=== PATIENT | male | born 1950 | race Caucasian/White ===

== ENCOUNTER 2017-05-03 09:30 | Outpatient (RCR) | payer MEDICARE, OTHER, SELFPAY | END 2017-05-10 23:59 | LOC: DC 09:30 | PROVIDERS: Family Provider Family Medicine; PCP Family Medicine; Visit Provider Family Medicine | DX: E11.21 Type 2 diabetes mellitus with diabetic nephropathy (principal); I10 Essential (primary) hypertension; E78.5 Hyperlipidemia, unspecified; Z71.3 Dietary counseling and surveillance | CPT/HCPCS: 97803; G0109 ==

== ENCOUNTER 2017-06-19 10:00 | Outpatient (RCR) | payer MEDICARE, OTHER, SELFPAY | END 2017-07-08 23:59 | LOC: DC 10:00 | PROVIDERS: Family Provider Family Medicine; PCP Family Medicine; Visit Provider Family Medicine | DX: E11.21 Type 2 diabetes mellitus with diabetic nephropathy (principal); I10 Essential (primary) hypertension; E78.5 Hyperlipidemia, unspecified; Z71.3 Dietary counseling and surveillance | CPT/HCPCS: 97803 ==

== ENCOUNTER → 2017-07-19 10:52 | Outpatient (CLI) | payer MEDICARE, OTHER, SELFPAY ==
[2017-07-19 12:11] LABS: Absolute Lymphocyte Count 2.45 X10^3/ul (0.83-4.51); Absolute Neutrophil Count 3.1 X10^3/uL (2.0-7.7); Basophil# 0.04 X10^3/uL; Basophil% 0.6 % (0-1); Eosinophils% 3.1 % (0-5); Hematocrit 43.8 % (40-54); Hemoglobin 14.7 g/dl (13.0-16.5); Lymphocyte # 2.45 X10^3/ul (4.0); Lymphocyte % 38.4 % (19-41); Mean Corp Hgb Conc 33.6 g/gl (32-36); Mean Corpuscular Hgb 31.3 pg (27.0-32.0); Mean Corpuscular Volume 93.2 fL (80-94); Mean Platelet Vol. 10.8 fl (6.2-12.0); Monocyte# 0.54 X10^3/uL; Monocyte% 8.5 % (0-10); Neutrophil # 3.14 X10^3/uL (2.7-7.7); Neutrophil % 49.2 % (47-70); Platelet Count 185 K/mm3 (150-450); RBC Distribution Width CV 12.7 % (11.6-14.6); White Blood Count 6.4 K/mm3 (4.4-11.0)
[2017-07-19 12:30] LABS: POSITIVE COUNT NO; POSITIVE DIFFERENTIAL NO; POSITIVE MORPHOLOGY NO
[2017-07-19 12:37] LABS: Microalbumin,Random Urine 62.9 mg/L (NO RANGE EST.); Microalbumin:Creatinine Ratio 47.3 mg/g CRE (<30 mg/g CRE)
[2017-07-19 12:42] LABS: Hemoglobin A1c 6.5 % (4.2-6.3)
[2017-07-19 12:49] LABS: ALB/GLOB Ratio 1.2 RATIO (0.9-2.4); AST(SGOT) 25 U/L (15-37); Alanine Aminotransfer ALT/SGPT 41 U/L (16-61); Alkaline Phosphatase 64 U/L (45-117); Anion Gap 6 (5-15); BUN 17 mg/dL (7-18); BUN/Creat Ratio 18.2 RATIO (10-20); Calcium,Total 8.7 mg/dL (8.5-10.1); Chloride 103 mmol/L (98-107); Cholesterol 128 mg/dL (200); Creatinine, Serum 0.93 mg/dL (0.70-1.30); EST Glomerular Filtration Rate 86 mL/min (>60); Est Glom Filt Rate - Afr Amer 104 mL/min (>60); Globulin 3.2 g/dL (2.2-4.2); Glucose 143 mg/dL (74-106); High Density Lipoprotein 25 mg/dL; Potassium 4.2 mmol/L (3.5-5.1); Protein, Total 7.2 g/dL (6.4-8.2); Sodium Level 140 mmol/L (136-145); Triglycerides 227 mg/dL; Very Low Density Lipoprotein 45 mg/dL (5-40)
== END ==
PROVIDERS: Family Provider Family Medicine; PCP Family Medicine; Visit Provider Family Medicine
DX: E11.21 Type 2 diabetes mellitus with diabetic nephropathy (principal); E78.5 Hyperlipidemia, unspecified; I10 Essential (primary) hypertension
CPT/HCPCS: 36415; 80053; 80061; 82043; 82570; 83036; 85025

== ENCOUNTER 2017-08-30 13:53 | Outpatient (RCR) | payer MEDICARE, OTHER, SELFPAY | END 2017-09-07 23:59 | LOC: DC 13:53 | PROVIDERS: Family Provider Family Medicine; PCP Family Medicine; Visit Provider Family Medicine | DX: E11.21 Type 2 diabetes mellitus with diabetic nephropathy (principal); I10 Essential (primary) hypertension; E78.5 Hyperlipidemia, unspecified; Z71.3 Dietary counseling and surveillance | CPT/HCPCS: G0109 ==

== ENCOUNTER 2017-09-20 14:01 | Outpatient (RCR) | payer MEDICARE, OTHER, SELFPAY | END 2017-10-07 23:59 | LOC: DC 14:01 | PROVIDERS: Family Provider Family Medicine; PCP Family Medicine; Visit Provider Family Medicine | DX: E11.21 Type 2 diabetes mellitus with diabetic nephropathy (principal); I10 Essential (primary) hypertension; E78.5 Hyperlipidemia, unspecified; Z71.3 Dietary counseling and surveillance | CPT/HCPCS: G0109 ==

== ENCOUNTER → 2018-01-29 10:45 | Outpatient (CLI) | payer MEDICARE, OTHER, SELFPAY ==
[2018-01-29 12:44] LABS: PSA,Total - Annual Screen 4.13 ng/mL (0.00-4.00)
== END ==
PROVIDERS: PCP Family Medicine; Visit Provider Urology
DX: Z12.5 Encounter for screening for malignant neoplasm of prostate (principal)
CPT/HCPCS: 36415; 84153; G0103

== ENCOUNTER → 2018-07-19 13:07 | Outpatient (CLI) | payer MEDICARE, SELFPAY ==
[2018-07-19 16:05] LABS: Absolute Lymphocyte Count 2.25 X10^3/ul (0.83-4.51); Absolute Neutrophil Count 3.3 X10^3/uL (2.0-7.7); Basophil# 0.03 X10^3/uL; Basophil% 0.5 % (0-1); Eosinophil# 0.24 X10^3/uL; Eosinophils% 3.7 % (0-5); Hematocrit 41.8 % (40-54); Hemoglobin 14.2 g/dl (13.0-16.5); Lymphocyte # 2.25 X10^3/ul (4.0); Lymphocyte % 34.9 % (19-41); Mean Corpuscular Hgb 30.8 pg (27.0-32.0); Mean Corpuscular Volume 90.7 fL (80-94); Monocyte# 0.62 X10^3/uL; Monocyte% 9.6 % (0-10); Neutrophil # 3.29 X10^3/uL (2.7-7.7); Platelet Count 183 K/mm3 (150-450); RBC Distribution Width CV 12.3 % (11.6-14.6); RBC Distribution Width SD 40.1 fl (35.1-43.9); Red Blood Count 4.61 M/mm3 (4.6-6.2); White Blood Count 6.5 K/mm3 (4.4-11.0)
[2018-07-19 16:10] LABS: POSITIVE COUNT NO; POSITIVE DIFFERENTIAL NO; POSITIVE MORPHOLOGY NO
[2018-07-19 16:24] LABS: ALB/GLOB Ratio 1.3 RATIO (0.9-2.4); AST(SGOT) 34 U/L (15-37); Alanine Aminotransfer ALT/SGPT 59 U/L (16-61); Alkaline Phosphatase 66 U/L (45-117); Anion Gap 7 (5-15); BUN 15 mg/dL (7-18); BUN/Creat Ratio 15.6 RATIO (10-20); Calcium,Total 8.9 mg/dL (8.5-10.1); Chloride 101 mmol/L (98-107); Cholesterol 119 mg/dL (200); Creatinine, Serum 0.96 mg/dL (0.70-1.30); EST Glomerular Filtration Rate 83 mL/min (>60); Est Glom Filt Rate - Afr Amer 100 mL/min (>60); Globulin 3.1 g/dL (2.2-4.2); Glucose 215 mg/dL (74-106); High Density Lipoprotein 25 mg/dL; Potassium 4.1 mmol/L (3.5-5.1); Protein, Total 7.1 g/dL (6.4-8.2); Sodium Level 137 mmol/L (136-145); Triglycerides 267 mg/dL; Very Low Density Lipoprotein 53 mg/dL (5-40)
[2018-07-19 16:35] LABS: Microalbumin,Random Urine 49.5 mg/L (NO RANGE EST.); Microalbumin:Creatinine Ratio 43.4 mg/g CRE (<30 mg/g CRE)
[2018-07-19 16:53] LABS: Hemoglobin A1c 7.8 % (4.2-6.3)
== END ==
PROVIDERS: Family Provider Family Medicine; PCP Family Medicine; Visit Provider Family Medicine
DX: E11.21 Type 2 diabetes mellitus with diabetic nephropathy (principal); M48.02 Spinal stenosis, cervical region; I10 Essential (primary) hypertension; M47.812 Spondylosis without myelopathy or radiculopathy, cervical region; E78.5 Hyperlipidemia, unspecified; N20.0 Calculus of kidney; N40.0 Benign prostatic hyperplasia without lower urinary tract symptoms; E66.9 Obesity, unspecified
CPT/HCPCS: 36415; 80053; 80061; 82043; 82570; 83036; 85025

== ENCOUNTER → 2018-09-13 16:37 | Outpatient (CLI) | payer MEDICARE, SELFPAY ==
[2018-09-13 16:52] LABS: Bacteria 0 SEEN /hpf (None Seen); Mucous, Urine 0 SEEN /hpf (<or=2+)
[2018-09-13 16:57] LABS: Color, Urine Yellow (Yellow); Glucose, Dipstick 1000 mg/dl (Normal); Ketone-Dipstick 15 mg/dl (Negative); Leukocyte Esterase-Dipstick Negative /ul (Negative); Nitrite-Dipstick Negative (Negative); Occult Blood-Urine 250 /ul (Negative); Protein-Dipstick 30 mg/dl (Negative); Specific Gravity, Urine 1.025 (1.002-1.030); Urine Bilirubin Dipstick Negative (Negative); Urine Clarity Clear (Clear); Urine Urobilinogen Normal (Normal)
[2018-09-13 17:11] LABS: Calcium Oxalate Crystals Ur 1+ /hpf (<or=2+); Red Blood Cells-Urine 5-10 SEEN /hpf (0-5); Squamous Epithelial Cells - UA 0-5 SEEN /hpf (0-5); White Blood Cells 0-5 SEEN /hpf (0-5)
== END ==
PROVIDERS: Family Provider Family Medicine; PCP Family Medicine; Referring Provider Nurse Practitioner Adult Health; Visit Provider Nurse Practitioner Adult Health
DX: R31.29 Other microscopic hematuria (principal)
CPT/HCPCS: 81001

== ENCOUNTER → 2018-09-27 | Outpatient (CLI) | payer MEDICARE, OTHER, SELFPAY ==
--- NOTE | 2018-09-27 13:53 | CT_ITS ---
HISTORY: Hematuria COMPARISON: 03/29/2017 TECHNIQUE: Helical CT axial images from the lung bases to the pubic symphysis without and with 100 ml of Isovue 300 intravenous contrast. Multiplanar reconstruction. No oral contrast was administered. A radiation dose optimization technique was used for this scan. # of images incl. paperwork: [phone] FINDINGS: LUNG BASES: No basilar consolidation or effusions. LIVER: Normal in size and attenuation. No focal masses. HEPATOBILIARY: Unremarkable gallbladder. No intra- or extrahepatic ductal dilatation. SPLEEN: Normal size. PANCREAS: Normal size and contour. No focal mass. ADRENAL GLANDS: Normal size. No adrenal masses. KIDNEYS: No obstructing calculi or hydronephrosis bilaterally. Right lower pole 3 x 9 mm nonobstructing calculus. Left lower pole infundibulum 5 x 4 mm nonobstructing calculus. No focal solid renal mass. No significant cysts are present. Normal ureters bilaterally without calculi or hydroureter. BOWEL AND MESENTERY: No small or large bowel dilatation. No focal bowel wall thickening. Descending and sigmoid colon diverticulosis. Normal appendix. No abnormal mesenteric lymphadenopathy. No free fluid or pneumoperitoneum. RETROPERITONEUM:Normal caliber abdominal aorta without aneurysm. Mild ASVD. No abnormal retroperitoneal lymphadenopathy. PELVIS:Moderate prostatomegaly with radiation seeds in place. Bilateral seminal vesicles are also enlarged. Mild mass-effect upon the base of the urinary bladder; otherwise unremarkable urinary bladder. ABDOMINAL WALL: The abdominal wall is intact. BONES: No suspicious osseous lytic or blastic lesions seen. Spine degenerative changes. CT/CT Abd/Pelvis W/WO Contrast IMPRESSION: 1. No acute intra-abdominal or pelvic disease. 2. Moderate prostatomegaly with radiation seeds in place. 3. No evidence for metastatic disease to abdomen or pelvis. 4. Nonobstructing bilateral nephrolithiasis as described. 5. Colonic diverticulosis without diverticulitis. Individualized dose optimization techniques were used for this CT. at 2023 Reported and signed by: Grant Acevedo MD Electronically Signed: Grant Acevedo MD at 20:23 EDT Tel , Service support ,
[2018-09-27 14:01] LABS: CREATININE FINGERSTICK 0.9 mg/dL (0.70-1.30)
== END | disposition home or self-care (01) ==
LOC: CT 13:51
PROVIDERS: Family Provider Family Medicine; PCP Family Medicine; Referring Provider Nurse Practitioner Adult Health; Visit Provider Nurse Practitioner Adult Health
DX: R31.9 Hematuria, unspecified (principal)
CPT/HCPCS: 74178; Q9967

== ENCOUNTER → 2018-10-09 13:04 | Outpatient (CLI) | payer MEDICARE, OTHER, SELFPAY ==
--- NOTE | 2018-10-09 13:09 | RAD_ITS ---
STUDY: X-RAY - ABDOMEN/PELVIS REASON FOR EXAM: Male, 68 years old. Bilateral kidney stones. TECHNIQUE: Two AP supine views of the abdomen and pelvis. COMPARISON: CT abdomen and pelvis September 27, 2018. FINDINGS: Normal visualized lung bases. There is an unremarkable bowel gas pattern. There is no demonstrated free abdominal air. The bilateral nephrolithiasis seen on CT is not evident here, although the renal shadows are partially obscured by gas and stool in the bowel. The visualized liver and spleen are grossly normal in size and morphology. There are calcified phleboliths in the pelvis, as well as a few linear metallic densities consistent with radiation seed implants in the prostate gland. There are stable degenerative changes of the visualized spine, upper sacroiliac joints, and hips. Stable small benign-appearing sclerotic density in the right femoral head. RAD/Abdomen Single View IMPRESSION: 1. Nephrolithiasis identified on CT is not identified here. 2. Nonspecific bowel gas pattern. 3. Radiation seed implants noted in the prostate gland. 4. Stable degenerative changes of the spine and pelvis, as noted. Electronically Signed: Alexey Leavitt MD at 14:11 EDT , Service support ,
== END ==
PROVIDERS: Family Provider Family Medicine; PCP Family Medicine; Referring Provider Urology; Visit Provider Urology
DX: N20.0 Calculus of kidney (principal)
CPT/HCPCS: 74018

== ENCOUNTER → 2018-10-18 11:17 | Outpatient (CLI) | payer MEDICARE, OTHER, SELFPAY ==
[2018-10-18 13:18] LABS: Hemoglobin A1c 8.1 % (4.2-6.3)
== END ==
PROVIDERS: Family Provider Family Medicine; PCP Family Medicine; Visit Provider Family Medicine
DX: E11.21 Type 2 diabetes mellitus with diabetic nephropathy (principal)
CPT/HCPCS: 36415; 83036

== ENCOUNTER → 2019-01-21 14:00 | Outpatient (CLI) | payer MEDICARE, OTHER, SELFPAY ==
[2018-11-03 10:07] VITALS: BMI 34.2
[2019-01-21 15:56] LABS: Cholesterol 118 mg/dL (200); High Density Lipoprotein 24 mg/dL; Triglycerides 236 mg/dL; Very Low Density Lipoprotein 47 mg/dL (5-40)
[2019-01-21 16:25] LABS: Hemoglobin A1c 7.1 % (4.2-6.3)
== END ==
PROVIDERS: Family Provider Family Medicine; PCP Family Medicine; Visit Provider Family Medicine
DX: E11.21 Type 2 diabetes mellitus with diabetic nephropathy (principal); E78.5 Hyperlipidemia, unspecified
CPT/HCPCS: 36415; 80061; 83036

== ENCOUNTER → 2019-03-11 13:14 | Outpatient (CLI) | payer MEDICARE, OTHER, SELFPAY ==
[2018-11-03 10:07] VITALS: BMI 34.2
[2019-03-11 15:22] LABS: PSA,Total - Annual Screen 3.89 ng/mL (0.00-4.00)
[2019-03-20 12:07] LABS: Ca Oxalate, Dihydrate 15 % (.); Ca Oxalate, Monohydrate 80 % (.)
== END ==
PROVIDERS: Family Provider Family Medicine; PCP Family Medicine; Referring Provider Urology; Visit Provider Urology
DX: Z12.5 Encounter for screening for malignant neoplasm of prostate (principal); N20.0 Calculus of kidney; R31.9 Hematuria, unspecified
CPT/HCPCS: 36415; 82360; 84153; 87086; 87088; G0103

== ENCOUNTER → 2019-04-22 14:03 | Outpatient (CLI) | payer MEDICARE, OTHER, SELFPAY ==
[2018-11-03 10:07] VITALS: BMI 34.2
--- NOTE | 2019-04-22 14:10 | RAD_ITS ---
STUDY: X-RAY - ABDOMEN/PELVIS REASON FOR EXAM: Male, 68 years old. follow up kidney stones, bilateral TECHNIQUE: Single AP view of the abdomen / pelvis. COMPARISON: None. FINDINGS: Normal visualized lung bases. There is abundant fecal debris within the colon suggestive of constipation. There is no demonstrated free abdominal air. The visualized liver, spleen and kidneys are grossly normal in size and morphology. Radiopaque structures in the region of prostate gland for the purpose of therapy. Image of the soft tissue structures. There are diffuse degenerative changes of the visualized lumbar spine, SI joints and bilateral hips. RAD/Abdomen Single View IMPRESSION: Possible constipation. Electronically Signed: Joana Medina MD at 3:55 EST , Service support ,
== END ==
PROVIDERS: Family Provider Family Medicine; PCP Family Medicine; Referring Provider Urology; Visit Provider Urology
DX: N20.0 Calculus of kidney (principal); R31.21 Asymptomatic microscopic hematuria
CPT/HCPCS: 74018

== ENCOUNTER 2019-05-24 13:09 | Day surgery (SDC) | payer MEDICARE, OTHER, SELFPAY ==
[2018-11-03 10:07] VITALS: BMI 34.2
[2019-05-20 09:21] VITALS: BP 155/80; PULSE 71; RESP 16; TEMP 36.6; O2SAT 95; BMI 35.9
--- NOTE | 2019-05-20 09:39 | SDCEKG_ITS ---
Test Reason : Blood Pressure : / mmHG Vent. Rate : 068 BPM Atrial Rate : 068 BPM P-R Int : 180 ms QRS Dur : 094 ms QT Int : 392 ms P-R-T Axes : 033 -45 108 degrees QTc Int : 416 ms Normal sinus rhythm Left axis deviation T wave abnormality, consider lateral ischemia Abnormal ECG Confirmed by DIANA PAYTON ([id number]), international editorial producer JOZEF OLIVEIRA ([id number]) on 05/23/2019 3:02:48 PM Referred By: Duke Logan Confirmed By:DIANA PAYTON
[2019-05-20 11:41] LABS: Anion Gap 6 (5-15); BUN 15 mg/dL (7-18); Calcium,Total 9.7 mg/dL (8.5-10.1); Chloride 101 mmol/L (98-107); EST Glomerular Filtration Rate 79 mL/min (>60); Est Glom Filt Rate - Afr Amer 96 mL/min (>60); Glucose 237 mg/dL (74-106); Potassium 4.3 mmol/L (3.5-5.1); Sodium Level 138 mmol/L (136-145)
[2019-05-20 11:48] LABS: Hemoglobin A1c 7.2 % (4.2-6.3)
[2019-05-22 11:30] VITALS: BMI 35.9
[2019-05-24] VITALS (11 sets, daily range): BP systolic 91–154; BP diastolic 53–83; PULSE 57–75; RESP 16–18; TEMP 36.2–36.9; O2SAT 94–99; BMI 35.6
[2019-05-24] MEDS: Lactated Ringers 1,000 ML 100 ML IV ×2 (14:05→16:17)
[2019-05-24 14:15] LABS: Bedside Glucose 175 mg/dL (70-110)
[2019-05-24] MEDS: Cefazolin 2 GM in 0.9% Normal Saline 100 ML IV (14:50)
--- NOTE | 2019-05-24 15:30 | PROS_PTH ---
PATIENT: TERESA RAINEY LOC: [facility] [place] U#:[id number] AGE/SX: 68/M ROOM: RE05/24/[address]: Dr. Duke Logan MD : 1950 BED: DIS: 05/25/2019 SPEC #: [id number] RECD: 05/27/19 10:55 STATUS: KATE RETorin #: [id number] BRAYDON: 05/24/19 15:[address]: Duke Lgoan DEPT: SURGICAL PATHOLOGY RECD BY: Iain Mena ENTERED: 05/27/19 11:09 SP TYPE: TURP OTHR DR: Dr. Shant Rojas, DO Tissues: Prostate, NOS Procedures: Surgery Specimen Level IV HEADER OPERATION: Cysto, TUR, prostate, Olympus PRE-OP DIAGNOSIS: Bladder stones, BPH with obstruction TISSUE SUBMITTED: Prostate chips MICROSCOPIC DIAGNOSIS Prostate chips, TUR: Benign prostatic hyperplasia, glandular and stromal type. Focal chronic inflammation. SJ:amelia 05/28/19 MICROSCOPIC DESCRIPTION Slides are reviewed. GROSS DESCRIPTION Received is one container labeled with the patient's name and designated prostate tissue. The specimen consists of multiple irregular fragments of pink-humphreys, rubbery, soft tissue that in aggregate weigh 6.8 gm and measure in aggregate 6 x 5 x 0.4 cm. The entire specimen is submitted in five cassettes. / AM:amelia 05/27/19 TC:5 CPT: 28185
--- NOTE | 2019-05-24 15:58 | PCM.DC.URO ---
Discharge Diet: Light diet - advance as tolerated Discharge Activity: Return to Normal Activity Call your doctor if your incision/area has: Continuous Slow Oozing, Sudden Increased Bleeding, Increased Pain/ Swelling, Increased Redness, Foul Smelling Discharge, Swelling at the incision site Call your doctor if you observe: Fever of 101 or Higher Suture Line Care: Avoid Pulling/Pushing, Avoid Pinching/Bending Instructions: Transurethral Resection of the Prostate (TURP): Home Recovery Allergies/Adverse Reactions: Allergies amoxicillin Allergy (Verified 05/24/19 13:47) Hives Penicillins Allergy (Verified 05/24/19 13:47) Hives Medications to take at Discharge Doxazosin Mesylate [Cardura] 4 mg PO DAILY 07/29/16 Simvastatin [Zocor] 10 mg PO QHS 07/29/16 cyclobenzaprine 10 mg tablet 10 mg PO TID PRN 11/01/18 metformin 500 mg tablet 1,000 mg PO BIDCM tab 11/01/18 omega-3 fatty acids 1,000 mg capsule 1,000 mg PO DAILY 11/01/18 propranolol 120 mg capsule,24 hr,extended release 120 mg PO DAILY 11/01/18 Fluconazole [Diflucan] 150 mg PO MOWEFR 05/20/19 Losartan Potassium [Cozaar] 25 mg PO DAILY 05/20/19 Multivitamin [Multivitamins] 1 ea PO DAILY 05/20/19 Naphazoline HCl/Pheniramine [Eye Allergy Relief Drops] 2 drp OP PRN PRN 05/20/19 diphenhydramine HCl 25 mg capsule 25 mg PO BID PRN cap 05/21/19 docusate sodium 100 mg capsule 100 mg PO QHS PRN 05/21/19 hydrocodone 5 mg-acetaminophen 325 mg tablet 1 tab PO Q6H PRN tab 05/21/19 hydrocortisone butyrate 0.1 % lotion 1 applic TOPICAL BID 05/21/19 nystatin 100,000 unit/gram topical cream 1 applic TOPICAL BID 05/21/19 sildenafil (pulm.hypertension) 20 mg tablet 20 mg PO DAILY PRN tab 05/21/19 aspirin 500 mg tablet 1,000 mg PO Q6H PRN tab 05/22/19 Ciprofloxacin [Cipro] 500 mg PO BID #14 tab 05/24/19 Ibuprofen 600 mg PO Q6H PRN PRN 5 Days #20 tab 05/24/19 The following prescriptions were given: Ciprofloxacin [Cipro] 500 mg PO BID #14 tab Transmission Status: Sent to [id number] Ibuprofen 600 mg PO Q6H PRN PRN 5 Days #20 tab PRN Reason: Pain Score 1-1010 Transmission Status: Sent to [id number] Primary Care Physician: Shant Rojas DO [Primary Care Provider] - Test Results: Test results from this visit will be discussed in further detail at your follow-up appointment, if applicable. Please Follow Up With: Duke Logan MD When: in 2 weeks, please call to make an appointment. Proposed Discharge Date: 05/25/19
--- NOTE | 2019-05-24 15:59 | OP.PCM_ITS ---
Report of Operation Date of Procedure: 05/24/19 Pre-Operative Diagnosis: Bladder stone and BPH with obstruction Post-Operative Diagnosis: Same Surgery/Procedure Performed:: Cystoscopy and laser litholapaxy of a large 3 cm bladder stone, transurethral resection of obstructing prostate Description of Surgical Findings:: 68-year-old male has a history of BPH and obstruction was found to have a stone in his bladder and significant bilateral occlusive disease in the median lobe because of this I recommended he undergo surgery for lasering removal of a large bladder stone and a transurethral resection of the prostate. We talked about the risk of surgery including bleeding, infection, and incontinence or bladder control problems. Patient was taken back to the operating room after smooth induction of general anesthesia he was placed in dorsolithotomy position. The penis and testicles were prepped and draped in usual sterile fashion, went into the bladder with a 26 American continuous flow resectoscope took out the resectoscope and the laser bridge he had a large 3 cm stone in the back of the bladder I then used the thousand micron laser fiber and laser the stone little tiny pieces and flushed all the pieces out of the bladder after the stone was done lasering removing the stone I then switched over to the resectoscope I switched over the loop he had a large median lobe this was resected down to the floor the bladder and then res ected back to the verumontanum I then switched over to the button I vaporized the lateral lobes of the prostate all the way back to the verumontanum had a nice flow test had a wide open flow. The sphincter was intact obtained good hemostasis three-way catheter was put into the bladder and was started on three- way irrigation he went back to the PACU in stable condition. At the end of the case the sphincter was intact both the left and right ureteral orifice were uninjured and he had a wide open channel from the verumontanum into the bladder. Type of Anesthesia:: General Drains: 3 way iverson - Admit VTE Documentation VTE Present on Admission: No
--- NOTE | 2019-05-24 16:10 | EKG12_ITS ---
Test Reason : POST OP Blood Pressure : / mmHG Vent. Rate : 071 BPM Atrial Rate : 071 BPM P-R Int : 176 ms QRS Dur : 094 ms QT Int : 404 ms P-R-T Axes : 053 -36 120 degrees QTc Int : 439 ms Normal sinus rhythm Left axis deviation ST & T wave abnormality, consider lateral ischemia Abnormal ECG When compared with ECG of 20-MAY-2019 09:49, Inverted T waves have replaced nonspecific T wave abnormality in Anterior leads Confirmed by DIANA PAYTON ([id number]), pictures editor IFTIKHAR HOU ([id number]) on 05/30/2019 9:49:41 AM Referred By: Duke Logan Confirmed By:DIANA PAYTON
[2019-05-24] MEDS: 0.9% Normal Saline 1,000 ML 75 ML IV ×2 (16:40→18:18)
[2019-05-24 16:55] LABS: Bedside Glucose 158 mg/dL (70-110)
[2019-05-24] MEDS: metFORMIN HCl 1,000 MG Tablet 1000 MG PO (18:15)
[2019-05-24] MEDS: Ciprofloxacin 400 MG/200 ML BAG 200 MG IV (21:39)
[2019-05-24] MEDS: Docusate Sodium 100 MG Capsule PO (21:41)
[2019-05-24] MEDS: Atorvastatin Calcium 10 MG Tablet 5 MG PO (21:42)
[2019-05-24] MEDS: Ibuprofen 600 MG Tablet PO (21:48)
[2019-05-25 03:22] VITALS: BP 120/58; PULSE 64; RESP 18; TEMP 36.7; O2SAT 97
[2019-05-25 07:22] LABS: Hematocrit 36.8 % (40-54); Hemoglobin 12.6 g/dL (13.0-16.5); Mean Corp Hgb Conc 34.2 g/dL (32-36); Mean Corpuscular Hgb 31.5 pg (27.0-32.0); Platelet Count 167 K/mm3 (150-450); RBC Distribution Width CV 11.9 % (11.6-14.6); RBC Distribution Width SD 40.1 fl (35.1-43.9)
[2019-05-25 08:16] LABS: Anion Gap 9 (5-15); BUN 19 mg/dL (7-18); BUN/Creat Ratio 18.4 RATIO (10-20); Calcium,Total 8.8 mg/dL (8.5-10.1); Chloride 103 mmol/L (98-107); Creatinine, Serum 1.03 mg/dL (0.70-1.30); EST Glomerular Filtration Rate 76 mL/min (>60); Est Glom Filt Rate - Afr Amer 92 mL/min (>60); Estimated Creatinine Clearance 61.94 ml/min; Glucose 186 mg/dL (74-106); Potassium 4.4 mmol/L (3.5-5.1); Sodium Level 138 mmol/L (136-145)
[2019-05-25 08:39] VITALS: BP 132/59; PULSE 65; RESP 16; TEMP 36.4; O2SAT 96
[2019-05-25] MEDS: Multivitamins,Therapeutic Tablet 1 TABLET PO (08:47)
[2019-05-25] MEDS: metFORMIN HCl 1,000 MG Tablet 1000 MG PO (08:47)
[2019-05-25] MEDS: Docusate Sodium 100 MG Capsule PO (08:47)
[2019-05-25] MEDS: Propranolol LA 60 MG Capsule 120 MG PO (08:48)
[2019-05-25] MEDS: Pantoprazole Sodium 40 MG Tablet PO (08:48)
[2019-05-25] MEDS: Losartan Potassium 25 MG Tablet PO (08:48)
[2019-05-25] MEDS: Omega-3 Acid Ethyl Esters 1 GM Capsule PO (08:49)
[2019-05-25] MEDS: Ciprofloxacin 400 MG/200 ML BAG 200 MG IV (09:08)
[2019-05-25 15:10] VITALS: BP 137/67; PULSE 92; RESP 16; TEMP 36.8; O2SAT 97
--- NOTE | 2019-05-29 17:58 | HP.PCM_ITS ---
History of Present Illness Date of Admission: 05/24/19 Chief Complaint: turp The patient is a 68 year old M present for Surgery at [facility] Past Medical History Past Medical History (Chronic Problems): Chronic Problems (Last Reviewed 05/22/19 @ 14:27 by Too Garcia MD) Essential hypertension (Chronic) Hyperlipidemia (Chronic) Medical History: Medical History (Last Reviewed 05/22/19 @ 14:27 by Too Garcia MD) Essential hypertension (Chronic) I10 Hyperlipidemia (Chronic) E78.5 BPH (benign prostatic hyperplasia) N40.0 Benign essential tremor G25.0 Constipation K59.00 History of back problems Kidney stones N20.0 Type 2 diabetes mellitus without complication E11.9 IBS (irritable bowel syndrome) K58.9 Allergies amoxicillin Allergy (Verified 05/24/19 13:47) Hives Penicillins Allergy (Verified 05/24/19 13:47) Hives Home Medications: Ambulatory Orders Medication Instructions Recorded Doxazosin Mesylate [Cardura] 4 mg PO DAILY 07/29/16 Simvastatin [Zocor] 10 mg PO QHS 07/29/16 cyclobenzaprine 10 mg tablet 10 mg PO TID PRN 11/01/18 metformin 500 mg tablet 1,000 mg PO BIDCM tab 11/01/18 omega-3 fatty acids 1,000 mg 1,000 mg PO DAILY 11/01/18 capsule propranolol 120 mg capsule,24 120 mg PO DAILY 11/01/18 hr,extended release Fluconazole [Diflucan] 150 mg PO MOWEFR 05/20/19 Losartan Potassium [Cozaar] 25 mg PO DAILY 05/20/19 Multivitamin [Multivitamins] 1 ea PO DAILY 05/20/19 Naphazoline HCl/Pheniramine [Eye 2 drp OP PRN PRN 05/20/19 Allergy Relief Drops] diphenhydramine HCl 25 mg capsule 25 mg PO BID PRN cap 05/21/19 docusate sodium 100 mg capsule 100 mg PO QHS PRN 05/21/19 hydrocodone 5 mg-acetaminophen 325 1 tab PO Q6H PRN tab 05/21/19 mg tablet hydrocortisone butyrate 0.1 % 1 applic TOPICAL BID 05/21/19 lotion nystatin 100,000 unit/gram topical 1 applic TOPICAL BID 05/21/19 cream sildenafil (pulm.hypertension) 20 20 mg PO DAILY PRN tab 05/21/19 mg tablet aspirin 500 mg tablet 1,000 mg PO Q6H PRN tab 05/22/19 Ciprofloxacin [Cipro] 500 mg PO BID #14 tab 05/24/19 Surgical History: Surgical History (Last Reviewed 05/22/19 @ 14:27 by Too Garcia MD) History of fusion of cervical spine Z98.1 History of incision and drainage Z98.890 posterior neck cyst- 11/03/18 History of lithotripsy Z98.890 History of tonsillectomy Z90.89 Smoking Status: Never smoker Tobacco Use: Chew VTE Information - Inpt Only VTE Present on Admission: No VTE Mechan Device Prophylaxis: SCD's - Physical Exam Vitals/I&O's: Vital Signs Temp Pulse Resp BP Pulse Ox 98.3 F 92 16 137/67 H 97 05/25/19 15:10 05/25/19 15:10 05/25/19 15:10 05/25/19 15:10 05/25/19 15:10 Oxygen Delivery Method Room Air Weight: 101.7 kg Body Mass Index (BMI) 35.6 Finger Stick Blood Glucose 158 General: Alert, Oriented x3, Cooperative HEENT: Atraumatic, PERRLA, EOMI, Normocephalic Neck: Supple, No JVD, Negative Carotid Bruits Lungs: Clear to auscultation, Normal air movement Cardiovascular: Regular rate, No murmurs Abdomen: Bowel Sounds Present, Soft, Non Tender Extremities: No edema, Capillary Refill Less than 3 Seconds Skin: No rashes, No breakdown Musculoskeletal: No Tenderness to Palpation of Joints or Extremities Neurological: Cranial nerves II-XII grossly intact Psych/Mental Status: Normal Affect, Appropriate Assessment/Plan All Active Problems (Last Reviewed 05/22/19 @ 14:27 by Too Garcia MD) Preop cardiovascular exam (Acute) proceed with Surgery.
== END 2019-05-25 16:00 | disposition home or self-care (01) ==
LOC: SDC 13:09 → AC 13:10 → MS3 15:56
PROVIDERS: Anesthesiology; PCP Family Medicine; Referring Provider Urology; Visit Provider Urology
PROC: (CPT 52318; principal; 2019-05-24 15:20)
PROC: (CPT 52318; 2019-05-24 15:20)
DX: N40.1 Benign prostatic hyperplasia with lower urinary tract symptoms (principal); N13.8 Other obstructive and reflux uropathy; N21.0 Calculus in bladder; Z79.899 Other long term (current) drug therapy; Z79.82 Long term (current) use of aspirin; R94.31 Abnormal electrocardiogram [ECG] [EKG]; Z79.84 Long term (current) use of oral hypoglycemic drugs; I10 Essential (primary) hypertension; E78.00 Pure hypercholesterolemia, unspecified; E11.9 Type 2 diabetes mellitus without complications; F17.220 Nicotine dependence, chewing tobacco, uncomplicated
CPT/HCPCS: 00914; 52318; 52601; 36415; 80048; 82962; 83036; 84484; 85027; 88305; 93005; 99406; J7030; J7120; J0744; J2405

== ENCOUNTER 2019-06-08 17:02 | Emergency (ER) | payer MEDICARE, OTHER, SELFPAY ==
[2019-05-24 17:30] VITALS: BMI 35.6
[2019-06-08 17:03] VITALS: BP 158/87; PULSE 67; RESP 18; TEMP 36.5; O2SAT 100; BMI 35.9
--- NOTE | 2019-06-08 17:27 | CT_ITS ---
STUDY: CT ABDOMEN AND PELVIS WITHOUT CONTRAST REASON FOR EXAM: Male, 68 years old. Bilateral flank pain, hematuria, history of kidney stones RADIATION DOSAGE (If Supplied By Facility): CTDIvol = ( 16.48 ) mGy, DLP = ( 848.23 ) mGycm TECHNIQUE: Transaxial images were obtained from the dome of the diaphragm to the symphysis pubis without oral contrast, and without intravenous contrast. Sagittal and coronal images were reconstructed. Individualized dose optimization techniques were used for this CT. COMPARISON: 27 September 2018 FINDINGS: The visualized lung bases are unremarkable. The visualized portions of the heart are within normal limits. The liver is fatty infiltrated without biliary dilation. Gallbladder is normal. Spleen adrenals and pancreas are intact. There is an elongated 1 cm ellipsoid-shaped calculus in the left ureterovesical junction, partially within the urinary bladder causing mild to moderate upstream hydroureteronephrosis. There are small, 1-3 mm, bilateral calyceal stones. Right collecting system is decompressed. Metallic seeds are present in the prostate, possibly brachytherapy. There is no intestinal obstruction. There is severe intra-abdominal lipomatosis. There is left inguinal fat hernia. CT/Abdomen/Pelvis without Cont IMPRESSION: 1. 1 cm left ureterovesical junction stone, partially within the bladder with mild to moderate hydronephrosis. 2. Hepatic steatosis. Hepatology referral is advised. 3. Intra-abdominal lipomatosis. Bariatrics specialty referral is advised. Electronically Signed: Car Sesay, at 18:22 EST Tel , Service support ,
--- NOTE | 2019-06-08 17:28 | ED.DCSUM_ITS ---
History of Present Illness Chief Complaint: Flank Pain Informant: Patient - Abdominal Pain/Flank Pain Onset: Today - several hours ago Context: Sudden Onset Timing: Continuous Quality: Aching Location: Left Flank - initially, followed by right and left Current Severity: Mild Maximum Severity: Severe Worsened by: Nothing Relieved by: - - percocet - Nausea/Vomiting/Emesis GI Symptom: Negative for: Nausea, Vomiting - Diarrhea/Melena/Hematochezia GI Symptom: Negative for: Diarrhea, Melena, Hematochezia Associated Symptoms: Dysuria - The last time he went today, Hematuria, - - No retention. Feels like he is emptying his bladder okay.. Negative for: Frequency Narrative: Patient had a TURP 3 weeks ago, initially had hematuria but then it cleared. He occasionally is urinating out blood clots, the last one was this morning. This pain started an hour or more after that. No retention symptoms today. Pain down the length of his penis and the urethral meatus with urinating since then. Minor hematuria intermittently. Pain started on the left side than the right, now both sides, but much better since he took a second Percocet about 2 or 3 olive rs ago. He states it feels like kidney stone pain, he has had them on both sides in the past. - Past Medical History (1) Kidney stones Status: Chronic (2) Essential hypertension Status: Chronic (3) Hyperlipidemia Status: Chronic Past Medical History - Allergies and Home Meds Allergies/Adverse Reactions: Allergies amoxicillin Allergy (Verified 06/08/19 17:06) Hives Penicillins Allergy (Verified 06/08/19 17:06) Hives Primary Care Physician: Shant Rojas DO [Primary Care Provider] - Doctors: Dr. Logan Lives: Spouse/ Significant Other Smoking Status: Never smoker Review of Systems General: Denies: Chills, Fever, Sweats Eyes: Denies: Visual changes - bilaterally, Diplopia ENT: Denies: Rhinorrhea, Sore throat Cardiovascular: Denies: Chest pain, Palpitations Respiratory: Denies: Dyspnea, Cough, Dyspnea on exertion Gastrointestinal: Denies: Abdominal pain, Nausea, Vomiting, Diarrhea, Melena, Hematochezia Genitourinary: Reports: Dysuria, Hematuria. Denies: Frequency Musculoskeletal: Reports: Back pain. Denies: Extremity Pain Skin: Denies: Rash, Wounds Neurological: Denies: Headache, Weakness, Numbness Physical Exam Vital Signs/Narrative: Vital Signs Temp Pulse Resp BP Pulse Ox 06/08/19 17:03 97.7 F L 67 18 158/87 H 100 Inital Vital Signs reviewed: Yes General: Well nourished, Well developed, Obese, No Acute Distress Head: Normocephalic, Atraumatic Eyes: Perrl, EOMI ENT: Moist mucous membranes, No rhinorrhea Neck: Supple, Nontender Cardiovascular: Regular rate, Regular rhythm, No murmurs Respiratory: No distress, CTA bilaterally, Chest nontender Abdomen: Soft, Nontender, Nondistended, Normal bowel sounds Back: Nontender, Normal Inspection. Negative for: CVA tenderness Extremities: Nontender, Edema - trace BLE to knees, symmewtric. Negative for: Calf Tenderness Skin: Normal color, No rash, No Trauma Neurological: Alert, Oriented x3, Cranial nerves II-XII grossly intact, Normal Strength, Normal Sensation, Normal Gait Psychological: Normal affect, Normal Mood Diagnostic/Tx/Re-eval Impressions Abdomen/Pelvis CT 06/08/19 17:27 IMPRESSION: 1. 1 cm left ureterovesical junction stone, partially within the bladder with mild to moderate hydronephrosis. 2. Hepatic steatosis. Hepatology referral is advised. 3. Intra-abdominal lipomatosis. Bariatrics specialty referral is advised. Electronically Signed: Car Sesay, at 18:22 EST Tel , Service support , 06/08/19 17:27 Abdomen/Pelvis without Cont [CT] Stat Laboratory Results 06/08/19 06/08/19 06/08/19 17:15 17:45 17:45 WBC 11.6 H RBC 4.54 L Hgb 14.3 Hct 41.0 MCV 90.3 MCH 31.5 MCHC 34.9 RDW Std Deviation 38.8 RDW Coeff of Ethel 11.8 Plt Count 204 MPV 10.1 Immature Gran % (Auto) 0.300 Neut % (Auto) 68.9 Lymph % (Auto) 18.3 L [place] % (Auto) 9.9 Eos % (Auto) 2.1 Baso % (Auto) 0.5 Absolute Neuts (auto) 8.0 H Absolute Lymphs (auto) 2.12 Nucleated RBC % 0 Sodium 137 Potassium 4.3 Chloride 101 Carbon Dioxide 28.0 Anion Gap 8 BUN 27 H Creatinine 1.29 Estim Creat Clear Calc 49.46 Est GFR (MDRD) Af Amer 71 Est GFR (MDRD) Non-Af 59 L BUN/Creatinine Ratio 20.9 H Glucose 141 H Calcium 9.2 Urine Color Yellow Urine Clarity Cloudy Urine pH 5.0 Ur Specific [place] 1.025 Urine Protein 30 H Urine Glucose (UA) Normal Urine Ketones 15 H Urine Occult Blood 250 H Urine Nitrite Negative Urine Bilirubin Negative Urine Urobilinogen Normal Ur Leukocyte Esterase 500 H Urine RBC 50-100 SEEN Urine WBC 50-100 SEEN Ur Squamous Epith Cells 5-10 SEEN Amorphous Sediment 1+ URATE Urine Bacteria RARE Urine Mucus 0 SEEN - Medical Decision Making CT findings as above, were relayed to the patient with regards to his kidney stone that appears to be at the left UVJ and is quite large, but part way in the bladder. This may pass on its own given that. His urinalysis shows some indicators for infection, which may be why he was having burning. His urine was sent for culture and he was started on Cipro empirically, he is on fluconazole chronically because of a chronic tinea cruris that did not respond to topical treatment, so he knows to stop that while on the ciprofloxacin. He required no analgesics while in the emergency department, his pain remained well controlled for the 1.5 hours he was here. He is comfortable going home and states he has pain medication at home. He will follow-up with his urologist after the weekend, and return for uncontrollable symptoms. He is comfortable with that plan. ED Disposition - Plan for ED Patient: Disposition: Home or Assisted Living Diagnosis: UTI (urinary tract infection), Urolithiasis, Ureteral colic Instructions: KIDNEY STONE w/ Colic, Understanding Urinary Tract Infections (UTIs) Prescriptions: Ciprofloxacin [Cipro] 500 mg PO BID #14 tab Transmission Status: Pending to [facility] Referrals: Shant Rojas DO [Primary Care Provider] - Duke Logan MD [STAFF PHYSICIAN] - (2-4 days)
[2019-06-08 17:47] LABS: Mucous, Urine 0 SEEN /hpf (<or=2+)
[2019-06-08 17:49] LABS: Color, Urine Yellow (Yellow); Glucose, Dipstick Normal (Normal); Ketone-Dipstick 15 mg/dl (Negative); Leukocyte Esterase-Dipstick 500 /ul (Negative); Nitrite-Dipstick Negative (Negative); Occult Blood-Urine 250 /ul (Negative); Protein-Dipstick 30 mg/dl (Negative); Specific Gravity, Urine 1.025 (1.002-1.030); Urine Bilirubin Dipstick Negative (Negative); Urine Clarity Cloudy (Clear); Urine Urobilinogen Normal (Normal)
[2019-06-08 17:53] LABS: Absolute Lymphocyte Count 2.12 X10^3/uL (0.83-4.51); Basophil# 0.06 X10^3/uL; Basophil% 0.5 % (0-1); Eosinophil# 0.24 X10^3/uL; Eosinophils% 2.1 % (0-5); Hemoglobin 14.3 g/dL (13.0-16.5); Lymphocyte # 2.12 X10^3/ul (4.0); Lymphocyte % 18.3 % (19-41); Mean Corp Hgb Conc 34.9 g/dL (32-36); Mean Corpuscular Hgb 31.5 pg (27.0-32.0); Mean Corpuscular Volume 90.3 fL (80-94); Mean Platelet Vol. 10.1 fl (6.2-12.0); Monocyte# 1.14 X10^3/uL; Monocyte% 9.9 % (0-10); NRBC Flagged by Analyzer 0 % (0-5); Neutrophil # 7.98 X10^3/uL (2.7-7.7); Neutrophil % 68.9 % (47-70); Platelet Count 204 K/mm3 (150-450); RBC Distribution Width CV 11.8 % (11.6-14.6); RBC Distribution Width SD 38.8 fl (35.1-43.9); Red Blood Count 4.54 M/mm3 (4.6-6.2); White Blood Count 11.6 K/mm3 (4.4-11.0)
[2019-06-08 17:54] LABS: White Blood Cells 50-100 SEEN /hpf (0-5)
[2019-06-08 17:55] LABS: Amorphous Sediment 1+ URATE; Bacteria RARE /hpf (None Seen); Red Blood Cells-Urine 50-100 SEEN /hpf (0-5); Squamous Epithelial Cells - UA 5-10 SEEN /hpf (0-5)
[2019-06-08 18:06] LABS: Anion Gap 8 (5-15); BUN 27 mg/dL (7-18); BUN/Creat Ratio 20.9 RATIO (10-20); Calcium,Total 9.2 mg/dL (8.5-10.1); Chloride 101 mmol/L (98-107); Creatinine, Serum 1.29 mg/dL (0.70-1.30); EST Glomerular Filtration Rate 59 mL/min (>60); Est Glom Filt Rate - Afr Amer 71 mL/min (>60); Estimated Creatinine Clearance 49.46 ml/min; Glucose 141 mg/dL (74-106); Potassium 4.3 mmol/L (3.5-5.1); Sodium Level 137 mmol/L (136-145)
[2019-06-08] MEDS: Ciprofloxacin 500 MG Tablet PO (18:59)
[2019-06-08 19:04] VITALS: BP 153/69; PULSE 63; RESP 18; O2SAT 96
== END 2019-06-08 19:13 | disposition home or self-care (01) ==
PROVIDERS: Emergency Provider Emergency Medicine; PCP Family Medicine
DX: N39.0 Urinary tract infection, site not specified (principal); N20.9 Urinary calculus, unspecified; N23 Unspecified renal colic; E11.9 Type 2 diabetes mellitus without complications; I10 Essential (primary) hypertension; Z87.442 Personal history of urinary calculi; Z79.899 Other long term (current) drug therapy; Z79.84 Long term (current) use of oral hypoglycemic drugs
CPT/HCPCS: 74176; 80048; 81001; 85025; 87086; 99285; J7030; A4216

== ENCOUNTER 2019-06-21 12:49 | Day surgery (SDC) | payer MEDICARE, OTHER, SELFPAY ==
[2019-06-21 13:13] VITALS: BP 164/74; PULSE 58; RESP 15; TEMP 36.6; O2SAT 99; BMI 34.9
[2019-06-21] MEDS: Lactated Ringers 1,000 ML 100 ML IV (13:25)
[2019-06-21 13:41] LABS: Bedside Glucose 174 mg/dL (70-110)
[2019-06-21] MEDS: Cefazolin 2 GM in 0.9% Normal Saline 100 ML IV (14:37)
--- NOTE | 2019-06-21 14:37 | PCM.DC.URO ---
Discharge Diet: Light diet - advance as tolerated Discharge Activity: Return to Normal Activity Call your doctor if your incision/area has: Continuous Slow Oozing, Sudden Increased Bleeding, Increased Pain/ Swelling, Increased Redness, Foul Smelling Discharge, Swelling at the incision site Call your doctor if you observe: Fever of 101 or Higher Suture Line Care: Avoid Pulling/Pushing, Avoid Pinching/Bending Allergies/Adverse Reactions: Allergies amoxicillin Allergy (Verified 06/21/19 12:56) Hives Penicillins Allergy (Verified 06/21/19 12:56) Hives Medications to take at Discharge Simvastatin [Zocor] 10 mg PO QHS 07/29/16 cyclobenzaprine 10 mg tablet 10 mg PO TID PRN 11/01/18 metformin 500 mg tablet 1,000 mg PO BIDCM tab 11/01/18 omega-3 fatty acids 1,000 mg capsule 1,000 mg PO DAILY 11/01/18 propranolol 120 mg capsule,24 hr,extended release 120 mg PO DAILY 11/01/18 Fluconazole [Diflucan] 150 mg PO MOWEFR 05/20/19 Losartan Potassium [Cozaar] 25 mg PO DAILY 05/20/19 Multivitamin [Multivitamins] 1 ea PO DAILY 05/20/19 Naphazoline HCl/Pheniramine [Eye Allergy Relief Drops] 2 drp OP PRN PRN 05/20/19 diphenhydramine HCl 25 mg capsule 25 mg PO BID PRN cap 05/21/19 docusate sodium 100 mg capsule 100 mg PO QHS PRN 05/21/19 hydrocodone 5 mg-acetaminophen 325 mg tablet 1 tab PO Q6H PRN tab 05/21/19 sildenafil (pulm.hypertension) 20 mg tablet 20 mg PO DAILY PRN tab 05/21/19 Ciprofloxacin [Cipro] 500 mg PO BID #6 tab 06/21/19 Hydrocodone/Acetaminophen [[place] 5-325 Tablet] 1 ea PO Q4H PRN PRN 5 Days #14 tab 06/21/19 The following prescriptions were given: Ciprofloxacin [Cipro] 500 mg PO BID #6 tab Transmission Status: Pending to [facility] [id number] Hydrocodone/Acetaminophen [[place] 5-325 Tablet] 1 ea PO Q4H PRN PRN 5 Days #14 tab PRN Reason: Pain Score 1-01/17 Transmission Status: Sent to [facility] [id number] Primary Care Physician: Shant Rojas DO [Primary Care Provider] - Test Results: Test results from this visit will be discussed in further detail at your follow-up appointment, if applicable. Please Follow Up With: Duke Logan MD When: please call to make an appointment.
[2019-06-21] MEDS: Lubricating Jelly 60 GM Tube 30 GM TOPICAL (15:00)
--- NOTE | 2019-06-21 15:21 | PCM.OPRPT ---
Report of Operation Date of Procedure: 06/21/19 Pre-Operative Diagnosis: Large stone in the distal ureter on the left side and also left kidney stone. Post-Operative Diagnosis: The same the stone in the ureter passing the bladder become a bladder stone and he still had a renal stone. Surgery/Procedure Performed:: Cystoscopy, left retrograde pyelogram, interpretation of fluoroscopic images, left ureteroscopy laser lithotripsy of stone in the kidney, left stent placement. Cystolitholapaxy and laser of a large bladder stone evacuation of fragments. Description of Surgical Findings:: 68-year-old male who underwent a TURP for obstruction. I saw him for follow-up visit. He then presented to the emergency room with severe pain in the left side he had a CAT scan done that demonstrated a stone in the distal left ureter and also stones up in the kidney. The stones were unrelated to his prior TURP. I saw the patient in the office and recommended we taken back to surgery to laser the stones and he will need a stent on the left side. Patient was taken back to the operating room at the smooth induction of general anesthesia he was placed supine on the table, went into the bladder he had a prior TURP in the still some sloughing from the prostatic urethra but is actually nice and wide open channel. I then identified the left ureteral orifice cannulated this with a wire, I then went next the wire with a SlimLine Olympus ureteroscope the stone that was seen in the distal ureter on the CAT scan had was gone there is a lot of debris in the bladder. I then went over the wire with a flexible 8 Persian ureteroscope was able to get up in the kidney I found a small fragment in the midpole this was lasered and then I found a stone fragment the lower pole and this is laser little tiny pieces using a 270 ?m laser fiber with energy settings 0.6 and 15 to 20 Hz. I then performed a retrograde pyelogram we placed a stent on the left side came down to the bladder and then inspected the bladder and found a bladder stone and then I used a 200 ?m laser fiber laser the stone into little pieces and then evacuated all the fragments of the bladder. I then drained the bladder and the stent was in good position patient acetic reversed plan to see him next week for cystoscopy and removal of the stent. Type of Anesthesia:: General Drains: stent left side - Admit VTE Documentation VTE Present on Admission: No VTE Mechan Device Prophylaxis: SCD's
[2019-06-21 15:30] VITALS: BP 164/74; BP 182/83; PULSE 67; RESP 16; TEMP 36.9; O2SAT 94
[2019-06-21 15:45] VITALS: BP 164/74; BP 171/92; PULSE 64; RESP 16; O2SAT 94
[2019-06-21] MEDS: Ketorolac 15 MG/ML Vial IV (15:45)
[2019-06-21 15:53] VITALS: BP 164/74; BP 173/83; PULSE 61; RESP 16; O2SAT 95
[2019-06-21 16:00] VITALS: BP 158/81; BP 164/74; PULSE 61; RESP 16; TEMP 36.2; O2SAT 97
[2019-06-21 16:11] LABS: Bedside Glucose 174 mg/dL (70-110)
[2019-06-21 16:48] VITALS: BP 157/74; BP 164/74; PULSE 62; RESP 14; TEMP 36.3; O2SAT 94
== END 2019-06-21 17:07 | disposition home or self-care (01) ==
LOC: SDC 12:50 → AC 12:51
PROVIDERS: PCP Family Medicine; Referring Provider Urology; Visit Provider Urology
PROC: 0TJ98ZZ Inspection of Ureter, Via Natural or Artificial Opening Endoscopic (ICD-10-PCS; CPT 52352; principal; 2019-06-21 14:30)
DX: N20.2 Calculus of kidney with calculus of ureter (principal); E78.00 Pure hypercholesterolemia, unspecified; E11.9 Type 2 diabetes mellitus without complications; Z79.899 Other long term (current) drug therapy; I10 Essential (primary) hypertension
CPT/HCPCS: 00918; 52318; 52356; 76000; 82962; J7120; C1769; C2617; J2405

== ENCOUNTER → 2020-04-17 13:39 | Outpatient (CLI) | payer MEDICARE, OTHER, SELFPAY ==
[2020-04-17 15:45] LABS: Hemoglobin A1c 7.6 % (3.8-5.6)
[2020-04-17 15:46] LABS: Absolute Lymphocyte Count 2.63 X10^3/uL (0.83-4.51); Absolute Neutrophil Count 3.6 X10^3/uL (2.0-7.7); Basophil# 0.06 X10^3/uL; Basophil% 0.8 % (0-1); Eosinophil# 0.31 X10^3/uL; Eosinophils% 4.2 % (0-5); Hematocrit 43.3 % (40-54); Hemoglobin 14.7 g/dL (13.0-16.5); Lymphocyte # 2.63 X10^3/ul (4.0); Lymphocyte % 35.7 % (19-41); Mean Corp Hgb Conc 33.9 g/dL (32-36); Mean Corpuscular Hgb 30.7 pg (27.0-32.0); Mean Corpuscular Volume 90.4 fL (80-94); Mean Platelet Vol. 10.9 fl (6.2-12.0); Monocyte# 0.73 X10^3/uL; Monocyte% 9.9 % (0-10); NRBC Flagged by Analyzer 0 % (0-5); Neutrophil # 3.61 X10^3/uL (2.7-7.7); Neutrophil % 49.1 % (47-70); Platelet Count 249 K/mm3 (150-450); RBC Distribution Width CV 11.7 % (11.6-14.6); RBC Distribution Width SD 38.8 fl (35.1-43.9); Red Blood Count 4.79 M/mm3 (4.6-6.2); White Blood Count 7.4 K/mm3 (4.4-11.0)
[2020-04-17 15:48] LABS: Microalbumin,Random Urine 35.7 mg/L (NO RANGE EST.); Microalbumin:Creatinine Ratio 67.7 mg/g CRE (<30 mg/g CRE)
[2020-04-17 16:08] LABS: ALB/GLOB Ratio 1.2 RATIO (0.9-2.4); AST(SGOT) 36 U/L (15-37); Alanine Aminotransfer ALT/SGPT 61 U/L (16-61); Albumin, Serum 4.1 g/dL (3.2-5.0); Alkaline Phosphatase 61 U/L (45-117); Anion Gap 7 (5-15); BUN 18 mg/dL (7-18); BUN/Creat Ratio 18.1 RATIO (10-20); Calcium,Total 9.1 mg/dL (8.5-10.1); Chloride 101 mmol/L (98-107); Cholesterol 154 mg/dL (200); Creatinine, Serum 0.99 mg/dL (0.70-1.30); EST Glomerular Filtration Rate 79 mL/min (>60); Est Glom Filt Rate - Afr Amer 96 mL/min (>60); Globulin 3.4 g/dL (2.2-4.2); Glucose 206 mg/dL (74-106); High Density Lipoprotein 25 mg/dL; Potassium 4.1 mmol/L (3.5-5.1); Protein, Total 7.5 g/dL (6.4-8.2); Sodium Level 134 mmol/L (136-145); Triglycerides 311 mg/dL; Very Low Density Lipoprotein 62 mg/dL (5-40)
== END ==
PROVIDERS: PCP Family Medicine; Visit Provider Family Medicine
DX: E11.21 Type 2 diabetes mellitus with diabetic nephropathy (principal); I10 Essential (primary) hypertension; E78.5 Hyperlipidemia, unspecified
CPT/HCPCS: 36415; 80053; 80061; 82043; 82570; 83036; 85025

== ENCOUNTER 2020-05-28 10:00 | Outpatient (RCR) | payer MEDICARE, OTHER, SELFPAY | END 2020-05-28 23:59 | LOC: IMMUN 10:00 | PROVIDERS: PCP Family Medicine; Referring Provider Family Medicine; Visit Provider Family Medicine | DX: Z23 Encounter for immunization (principal) | CPT/HCPCS: 0011A; 0012A ==

== ENCOUNTER → 2020-09-14 13:49 | Outpatient (CLI) | payer MEDICARE, OTHER, SELFPAY ==
[2020-09-14 16:33] LABS: PSA,Total - Annual Screen 2.93 ng/mL (0.00-4.00)
== END ==
PROVIDERS: PCP Family Medicine; Referring Provider Nurse Practitioner Adult Health; Visit Provider Nurse Practitioner Adult Health
DX: Z12.5 Encounter for screening for malignant neoplasm of prostate (principal)
CPT/HCPCS: 84153; G0103

== ENCOUNTER → 2020-11-05 10:49 | Outpatient (CLI) | payer MEDICARE, OTHER, SELFPAY ==
--- NOTE | 2020-11-05 10:53 | RAD_ITS ---
STUDY: X-RAY - ABDOMEN/PELVIS REASON FOR EXAM: Male, 70 years old. Left flank pain TECHNIQUE: AP supine and upright views of the abdomen and pelvis. COMPARISON: None. FINDINGS: Normal visualized lung bases. There is a moderate amount of colonic fecal material. There is no demonstrated free abdominal air. The visualized liver, spleen and kidneys are grossly normal in size and morphology. Normal soft tissue structures. There are diffuse degenerative changes of the visualized lumbar spine. RAD/Abdomen Single View IMPRESSION: No acute findings, degenerative bony changes Electronically Signed: Alexey Melo MD at 13:21 EDT , Service support ,
== END ==
PROVIDERS: PCP Family Medicine; Referring Provider Urology; Visit Provider Urology
DX: N20.0 Calculus of kidney (principal)
CPT/HCPCS: 74018

== ENCOUNTER 2021-04-15 13:24 | Outpatient (CLI) | payer MEDICARE, OTHER, SELFPAY ==
--- NOTE | 2021-04-15 13:28 | RAD_ITS ---
STUDY: X-RAY - THORACIC SPINE REASON FOR EXAM: Male, 70 years old. Back pain TECHNIQUE: 3 view(s) of the thoracic spine were obtained. COMPARISON: None. FINDINGS: Normal kyphosis of the thoracic spine. There is no substantial scoliosis. There is multilevel endplate spondylosis of the thoracic vertebrae. There is multilevel disc space narrowing of the thoracic spine. The soft tissue structures are unremarkable. RAD/Thoracic Spine 3 Views IMPRESSION: There are degenerative changes as noted above. Electronically Signed: Jaylen Romero MD at 18:34 EST , Service support ,
== END 2021-04-15 23:59 | disposition short-term general hospital (02) ==
PROVIDERS: PCP Family Medicine; Referring Provider Anesthesiology Pain Medicine; Visit Provider Anesthesiology Pain Medicine
DX: M51.34 Other intervertebral disc degeneration, thoracic region (principal)
CPT/HCPCS: 72072

== ENCOUNTER → 2021-10-01 | Outpatient (CLI) | payer MEDICARE, OTHER, SELFPAY ==
--- NOTE | 2021-10-01 11:13 | ART_ITS ---
Reason For Study: PVD Procedure A bilateral lower extremity continuous wave Doppler with analog waveform analysis,segmental pressures,and ankle brachial indexes with exercise. Left Segmental Pressures Left brachial= 196mmHg. Left posterior tibial artery = 231mmHg. Left dorsalis pedis artery = 232mmHg. The left dorsalis pedis waveforms are triphasic. The left posterior tibial artery waveforms are triphasic. The pulse volume recording at the left digit is adequate. Right Segmental Pressures Right brachial= 207mmHg. Right posterior tibial artery = 227mmHg. Right dorsalis pedis artery = 224mmHg. The right dorsalis pedis waveforms are triphasic. The right posterior tibial artery waveforms are triphasic. Indices The right ankle brachial index by the posterior tibial artery is 1.10. The right ankle brachial index by the dorsalis pedis is 1.08. The right post exercise ankle brachial index is N/C. The left posterior tibial artery index post exercise is 1.12. The left dorsalis pedis index post exercise is 1.12. The left post exercise ankle brachial index is N/C. VL/Lower Ext Art Exam w/ Exercise Interpretation Summary Triphasic Doppler waveforms are noted at ankle level bilaterally. Pulse-volume recordings appear satisfactory at all levels bilaterally. Resting ankle-brachial indices are norm al bilaterally. Following a period of exercise, ankle pressures augment bilaterally, a normal p hysiological response. There is no evidence of significant arterial occlusive disease in the lower ext remities bilaterally. Ordering Physician: Minh Naidu Referring Physician: Shant Rojas Performed By: Grant Ruiz
== END | disposition home or self-care (01) ==
LOC: CVS 11:11
PROVIDERS: PCP Family Medicine; Referring Provider Podiatrist; Visit Provider Podiatrist
DX: I73.9 Peripheral vascular disease, unspecified (principal)
CPT/HCPCS: 93924

== ENCOUNTER → 2021-11-04 | Outpatient (CLI) | payer MEDICARE, OTHER, SELFPAY ==
[2021-11-04 16:57] LABS: PSA,Total - Annual Screen 3.81 ng/mL (0.00-4.00)
== END | disposition home or self-care (01) ==
LOC: LAB 15:35
PROVIDERS: PCP Family Medicine; Referring Provider Urology; Visit Provider Urology
DX: Z12.5 Encounter for screening for malignant neoplasm of prostate (principal)
CPT/HCPCS: 36415; 84153; G0103

== ENCOUNTER 2022-02-08 14:00 | Outpatient (RCR) | payer MEDICARE, OTHER, SELFPAY ==
--- NOTE | 2022-01-25 15:26 | HP.PTEVAL ---
Patient's Visit Information TERESA RAINEY is a 71 year old M referred to Physical Therapy by Dr. Yamile Hines MD with a diagnosis of NECK PAIN. Date of Evaluation: 01/25/22 Physical Therapist: Karan Roblero, PT, Cert MDT, OCS - Visit Plan Frequency: 2x /Week Duration: 4 Weeks Plan: PT INTERAVTIONS CERVICAL ROM ,STRENGTHENING ,POSTURAL EX'S AND MODALTIES PRN - Subjective This 71 y/o male presents to physical therapy with neck pain. Patient has had cervical pain many years. Patient had cervical fusion C6-7 ~ MAY 1989. Most recently ,patient pain progressively worsen past years . Patient seen DR Gooden ~ 3 years ago but stated he was not candidate for surgery . Patient has prior PT 3 years ago. But symptoms progressively worse so seen Dr Robbins and 3 rounds of injections which has helped last injection ~ 4months . Located factors pain located cervical and thoracic spine. Symptoms right thoracic and and radicular symptoms left biceps. Aggravating factors turning ,flexion ,lifting . Patient alleviating medication . Patient has no FARAH . Denies dizziness /nausea/tinnitus .Patient has balance issues thus uses cane. Patient symptoms affects sleeping Denies paresthesia/tingling. 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 Patient condition affects QOL and function. SOCIAL: . 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 PALAPTION: tender paraspinal/occiput. NEURO: denies paresthesia/tingling ,reflexes C5-6-7 1/3. AROM: BUE AROM. MMT: grossly 4/5 ,deltoid 4-/5. [employer] STOCK STRENGTH: right 65 # ,left 80 # dynameter. CERVICAL ROM: flexion min loss ,lateral flexion mod/severe loss ,mod loss rotation ,extension mod loss - Special Tests C/S Radiculapathy - Left Upper limb tension test: Negative C/S Radiculapathy - Right Upper limb tension test: Negative C/S Radiculapathy - Left Spurlings: Negative C/S Radiculapathy - Right Spurlings: Negative C/S Radiculapathy - Left Cervical distraction: Negative C/S Radiculapathy - Right Cervical distraction: Negative Sharp Mina: Negative Vertebral Artery Test: Negative Alar Ligament Test: Negative - Balance/Special Test Scores Oswestry Neck Score: 22 - Goals Goal 1:: Patient to be I with HEP Goal Time Frame: 4-6 Weeks Goal 2:: Patient to increase cervical ROM for function for recovery to turn neck when driving Goal Time Frame: 4-6 Weeks Goal 3:: Patient to increase drag 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 strength right side thus will benefit from skilled PT Rehabilitation Potential: Good - Anticipated Interventions Patient/Client Instruction: Educate patient on: Condition, Plan of Care For the Purpose of:: To decrease pain, To increase ROM, To improve muscle performance and motor function, To improve ability to perform ADL's, To improve performance and independence with ADL's, To improve ability of physical actions for home/community/work/leisure, To improve health of tissue, To decrease soft tissue restriction, To increase flexibility/ROM, To improve tolerance to ADL's Therapeutic Exercise to Include: Strength training, Postural training, Flexibilty training, Active ROM, Scapular Strength/Stabilization For the Purpose of:: To decrease pain, To increase ROM, To improve muscle performance and motor function, To improve ability to perform ADL's, To increase tolerance to activity/condition/position, To improve ability of physical actions for home/community/work/leisure, To improve health of tissue, To decrease soft tissue restriction, To increase flexibility/ROM, To improve self management TENS: Yes IF ES: Yes Cryotherapy (ice pack, ice massage): Yes Thermo therapy (hot pack): Yes Ultrasound (thermal/non thermal): Yes For the Purpose of:: To decrease pain, To increase ROM, To improve health of tissue, To decrease soft tissue restriction Thank you for the opportunity to evaluate your patient. For Medicare and Medicare HMO plans, please review the plan of care and approve it. It will need to be FAXED BACK to us at [phone] for Medicare purposes. For Medicare only, by signing this I certify the plan of care. Please let me know if there are questions or concerns regarding this plan of care. Physician Signature: Date:
--- NOTE | 2022-03-29 10:31 | HP.PT.NRP ---
TERESA RAINEY was seen in my office for initial evaluation on 01/25/22. The following Plan of Care was established for this patient: Initial Frequency: 2x /Week Initial Duration: 4 Weeks Patient/Client Instruction: Educate patient on: Condition, Plan of Care For the Purpose of:: To decrease pain, To increase ROM, To improve muscle performance and motor function, To improve ability to perform ADL's, To improve performance and independence with ADL's, To improve ability of physical actions for home/community/work/leisure, To improve health of tissue, To decrease soft tissue restriction, To increase flexibility/ROM, To improve tolerance to ADL's Therapeutic Exercise to Include: Strength training, Postural training, Flexibilty training, Active ROM, Scapular Strength/Stabilization For the Purpose of:: To decrease pain, To increase ROM, To improve muscle performance and motor function, To improve ability to perform ADL's, To increase tolerance to activity/condition/position, To improve ability of physical actions for home/community/work/leisure, To improve health of tissue, To decrease soft tissue restriction, To increase flexibility/ROM, To improve self management TENS: Yes IF ES: Yes Cryotherapy (ice pack, ice massage): Yes Thermo therapy (hot pack): Yes Ultrasound (thermal/non thermal): Yes For the Purpose of:: To decrease pain, To increase ROM, To improve health of tissue, To decrease soft tissue restriction This patient was last seen in our office . Pertinent comments regarding their Physical therapy will appear below: Patient was seen for PT for neck pain HEP ,posture and and strengthening At this point I will be discontinuing this patient from physical therapy. I would be happy to see this patient again in the future if found appropriate by the physician. Thank you! Karan Roblero, PT, Cert MDT, OCS Balance/Gait/Functional tests - Balance/Special Test Scores Oswestry Neck Score: 4
== END 2022-02-08 19:00 | disposition home or self-care (01) ==
LOC: PT 14:00
PROVIDERS: PCP Family Medicine; Referring Provider Anesthesiology Pain Medicine; Visit Provider Anesthesiology Pain Medicine
DX: M54.2 Cervicalgia (principal)
CPT/HCPCS: 97110; 97162

== ENCOUNTER → 2022-03-07 | Outpatient (CLI) | payer MEDICARE, OTHER, SELFPAY ==
--- NOTE | 2022-03-07 17:46 | CT_ITS ---
INDICATION: SINUSITIS EXAMINATION: CT SINUSES - CT Sinuses W/O Contrast Injection TECHNIQUE: Helically acquired images were obtained of the paranasal sinuses. A radiation dose optimization technique was used for this scan. IV Contrast dosage and agent: None. COMPARISON: None. FINDINGS: No acute facial bone fracture. Two small mucous retention cysts or polyps in the left maxillary sinus inferiorly. No fluid levels in the paranasal sinuses. CT/Sinus/Facial Bone IMPRESSION: No significant paranasal sinus disease. Electronically Signed: Johnny Esquivel MD at 7:39 EST ,
== END | disposition home or self-care (01) ==
PROVIDERS: PCP Family Medicine; Referring Provider Otolaryngology Otolaryngology/Facial Plastic Surgery; Visit Provider Otolaryngology Otolaryngology/Facial Plastic Surgery
DX: J32.8 Other chronic sinusitis (principal)
CPT/HCPCS: 70486

== ENCOUNTER → 2022-04-12 | Outpatient (CLI) | payer MEDICARE, OTHER, SELFPAY ==
--- NOTE | 2022-04-12 18:13 | MRI_ITS ---
EXAM: MR HEAD WITHOUT AND WITH INTRAVENOUS CONTRAST CLINICAL INDICATION: PERSISTENT INTRACTABLE H/A, FMH GLIOBLASTOMA TECHNIQUE: Multiplanar and multisequence MR images of the brain were obtained without and with intravenous contrast. This report was created using [employer] report [employer] technology. CONTRAST: IV 19mL CLARISCAN COMPARISON: None. FINDINGS: BRAIN AND EXTRA-AXIAL SPACES: Unremarkable. No intra- or extra-axial hemorrhage. No evidence of acute infarct. No intracranial mass or mass effect. There is preservation of the lagunas/white matter interface. Posterior fossa structures are unremarkable. Ventricles are appropriate for age. No hydrocephalus. Basal cisterns are patent. SELLA: Unremarkable. Normal sella turcica, pituitary gland, infundibular stalk, optic chiasm and hypothalamus. AUDITORY SYSTEM: Unremarkable. The internal auditory canals are patent. BONES/JOINTS: Unremarkable. No discrete lytic or blastic abnormalities. SINUSES: Unremarkable as visualized. Clear. MASTOID AIR CELLS: Unremarkable as visualized. Clear. ORBITS: Unremarkable as visualized. Both globes, extraocular muscles, optic nerves and retrobulbar fat appear unremarkable. VASCULATURE: Unremarkable as visualized. Normal flow voids in the major intracranial circulation. MRI/Brain W/WO Contrast IMPRESSION: Negative MRI brain without and with intravenous contrast. Electronically Signed: Jaylen Romero MD at 20:07 EST ,
[2022-04-12 18:36] LABS: CREATININE FINGERSTICK < 0.9 mg/dL (0.70-1.30); EGFR FINGERSTICK > 60.0000 mL/min (>60)
== END | disposition home or self-care (01) ==
LOC: MRI 17:58
PROVIDERS: PCP Family Medicine; Visit Provider Family Medicine
DX: R51.9 Headache, unspecified (principal)
CPT/HCPCS: 70553; A9575

== ENCOUNTER → 2022-09-27 | Outpatient (CLI) | payer MEDICARE, OTHER, SELFPAY ==
--- NOTE | 2022-09-27 16:45 | MRI_ITS ---
EXAM: MR THORACIC SPINE WITHOUT INTRAVENOUS CONTRAST CLINICAL INDICATION: Radiculopathy, H/O DDD, C/O PAIN BETWEEN R SCAPULA AND SPINE TECHNIQUE: Multiplanar and multisequence MR images of the thoracic spine without intravenous contrast. COMPARISON: No relevant prior studies available. FINDINGS: VERTEBRAE: No fracture. Normal alignment. There is preservation of the normal thoracic kyphosis. No scoliosis. DISCS/SPINAL CANAL/NEURAL FORAMINA: Disc desiccation and disc height loss throughout the thoracic spine. T1-T2: Mild broad-based disc osteophyte complex causing mild central canal narrowing and minimal mass effect on the thoracic cord without cord edema. T4-T5: Mild broad-based disc ossific complex with mild mass effect on the ventral aspect of the thoracic cord without cord edema. T8-T9: Mild right paracentral disc osteophyte complex causing minimal central canal narrowing. T9-T10: Mild diffuse disc bulge as well as some facet arthropathy, causing minimal central canal narrowing. SPINAL CORD: Otherwise unremarkable in signal and morphology. Normal conus medullaris. SOFT TISSUES: Unremarkable. MRI/Spine Thoracic (Routine) IMPRESSION: Multilevel degenerative changes of the thoracic spine as detailed above. No acute abnormalities identified. Electronically Signed: Jaylen Astudillo MD at 0:46 EDT ,
== END | disposition home or self-care (01) ==
LOC: MRI 16:04
PROVIDERS: PCP Family Medicine; Referring Provider Anesthesiology Pain Medicine; Visit Provider Anesthesiology Pain Medicine
DX: M54.14 Radiculopathy, thoracic region (principal)
CPT/HCPCS: 72146

== ENCOUNTER → 2022-10-31 | Outpatient (CLI) | payer MEDICARE, OTHER, SELFPAY ==
--- NOTE | 2022-10-31 15:08 | RAD_ITS ---
EXAM: XR LUMBOSACRAL SPINE, 2 OR 3 VIEWS CLINICAL INDICATION: Other intervertebral disc degeneration, lumbosacral region TECHNIQUE: Frontal and lateral views of the lumbar spine and sacrum. COMPARISON: Abdominal radiographs of 11/05/2020. Thoracic spine radiographs of 04/15/2021. FINDINGS: VERTEBRAE: Lumbar vertebrae demonstrate slight levoscoliosis. Flowing osteophytes noted about the lower thoracic disc spaces which show degenerative narrowing. Marginal osteophytes are noted about the mid to upper lumbar disc spaces. Severe lower lumbar facet arthritis is present with mild anterolisthesis of L4 on L5. No compression fracture is noted. DISC SPACES: There are short ribs at T12. 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 Mid to upper lumbar disc spaces are preserved. GASTROINTESTINAL TRACT: Unremarkable as visualized. Included bowel gas pattern is non-obstructive. OTHER FINDINGS: Multiple calculi are projected over the left renal lower pole, measuring up to 12 mm in diameter. Projected in the region of the right renal pelvis is a 20 x 13 mm ovoid calcification. Multiple additional small calculi measuring up to 10 mm in diameter projected over the right kidney. Surgical sutures are projected over the lower pelvis. RAD/Lumbar Spine 2 or 3 Views IMPRESSION: Lower thoracic and lumbar degenerative spurring. Lumbar facet arthritis with mild anterolisthesis of L4 on L5. No acute fracture. Bilateral renal calculi. Electronically Signed: Glen Lopez MD at 1:52 EDT ,
== END | disposition home or self-care (01) ==
LOC: RAD 15:05
PROVIDERS: PCP Family Medicine; Referring Provider Anesthesiology Pain Medicine; Visit Provider Anesthesiology Pain Medicine
DX: M51.37 Other intervertebral disc degeneration, lumbosacral region (principal)
CPT/HCPCS: 72100

== ENCOUNTER → 2022-11-15 | Outpatient (CLI) | payer MEDICARE, OTHER, SELFPAY ==
[2022-11-15 16:05] LABS: Anion Gap 9 (5-15); BUN 31 mg/dL (7-18); BUN/Creat Ratio 28.7 RATIO (10-20); Calcium,Total 9.6 mg/dL (8.5-10.1); Chloride 109 mmol/L (98-107); Creatinine, Serum 1.08 mg/dL (0.70-1.30); EST Glomerular Filtration Rate 71 mL/min (>60); Est Glom Filt Rate - Afr Amer 86 mL/min (>60); Glucose 86 mg/dL (74-106); Potassium 4.3 mmol/L (3.5-5.1); Sodium Level 141 mmol/L (136-145)
[2022-11-15 17:54] LABS: Hemoglobin A1c 6.5 % (3.8-5.6)
== END | disposition home or self-care (01) ==
LOC: BFHLAB 13:54
PROVIDERS: PCP Family Medicine; Referring Provider Family Medicine; Visit Provider Family Medicine
DX: E11.21 Type 2 diabetes mellitus with diabetic nephropathy (principal); E87.5 Hyperkalemia
CPT/HCPCS: 36415; 80048; 83036

== ENCOUNTER → 2022-11-30 | Outpatient (CLI) | payer MEDICARE, OTHER, SELFPAY ==
[2022-11-30 16:18] LABS: Amphetamine Urine VISTA NEGATIVE (<1000 ng/mL); Barbiturate Urine VISTA NEGATIVE (< 200 ng/mL); Benzodiazepine Urine VISTA NEGATIVE (< 200 ng/mL); Cocaine Urine VISTA NEGATIVE (< 300 ng/mL); Ecstacy Urine VISTA NEGATIVE (< 500 ng/mL); Methadone Urine VISTA NEGATIVE (< 300 ng/mL); PCP Urine VISTA NEGATIVE (< 25 ng/mL); THC Urine VISTA NEGATIVE (< 50 ng/mL); Vista UDS pH Range 4
== END | disposition home or self-care (01) ==
LOC: LAB 15:24
PROVIDERS: PCP Family Medicine; Referring Provider Anesthesiology Pain Medicine; Visit Provider Anesthesiology Pain Medicine
DX: F11.20 Opioid dependence, uncomplicated (principal)
CPT/HCPCS: 80307

== ENCOUNTER 2022-12-09 05:34 | Day surgery (SDC) | payer MEDICARE, OTHER, SELFPAY ==
[2022-12-09] VITALS (7 sets, daily range): BP systolic 133–147; BP diastolic 62–102; PULSE 58–69; RESP 10–18; TEMP 36.1–36.4; O2SAT 90–99; BMI 34.2
--- NOTE | 2022-12-09 05:30 | CT_ITS ---
EXAM: CT ABDOMEN AND PELVIS WITHOUT INTRAVENOUS CONTRAST CLINICAL INDICATION: KIDNEY STONE PROTOCOL TECHNIQUE: Helically acquired images were obtained of the abdomen and pelvis without intravenous contrast. This CT exam was performed using one or more of the following dose reduction techniques: automated exposure control, adjustment of the mA and/or kV according to patient size, and/or use of iterative reconstruction technique. RADIATION DOSE: CTDIvol = 14.80 mGy, DLP = 757.84 mGy-cm COMPARISON: June 08, 2019. FINDINGS: LOWER THORAX: Calcification or stent in right coronary artery again noted. Normal heart size. Mild chronic change of lower thoracic spine with disc space narrowing and some central disc region calcifications. No bone destruction or suspicious lesions tiny presumed bone island again noted in the right femoral head. No significant pericardial effusion. ABDOMEN: LIVER: Unremarkable. Homogeneous. GALLBLADDER AND BILE DUCTS: Unremarkable. No calcified gallstones. No gallbladder distention or wall edema. No intra- or extrahepatic biliary ductal dilation. PANCREAS: Unremarkable. No focal cystic mass. SPLEEN: Unremarkable. Normal size without focal cystic or solid mass. ADRENALS: Unremarkable. No nodules. KIDNEYS AND URETERS: There is bilateral nephrolithiasis, including at least 3 stones in the lower pole of the left kidney and at at least 5 stones in the right kidney including a fairly large 1.6 cm x 0.7 cm x 1.3 cm stone in the right renal pelvis without pelvis or calyceal dilatation. Small ureters. No stones in the UVJs or bladder. STOMACH AND BOWEL: Mild diverticulosis of distal descending and sigmoid colon, no evidence of acute diverticulitis. No stomach or bowel distention. PELVIS: APPENDIX: There is a long segment of mildly dense inspissated material in the proximal to mid appendix which is new from prior exam, small tapering tip, small proximal appendix with slight gas in the lumen, it measures roughly 9 mm around the inspissated material no surrounding inflammatory change. BLADDER: Unremarkable. REPRODUCTIVE: Postoperative change of the prostate with multiple small clips. Moderate prostatomegaly, 5.8 cm x 5.2 cm x 5.5 cm. ABDOMEN and PELVIS: INTRAPERITONEAL SPACE: Unremarkable. No ascites or other fluid collection. No free air. BONES/JOINTS: Unremarkable. No suspicious lytic or blastic abnormality. SOFT TISSUES: Mild fat-containing left inguinal hernia. VASCULATURE: Mild atherosclerotic calcification of aorta and iliac arteries, no aneurysm or evidence of dissection. LYMPH NODES: Unremarkable. No enlarged lymph nodes. CT/Abdomen/Pelvis without Cont IMPRESSION: 1. Bilateral nephrolithiasis. The largest is a large elongated stone in the collapsed right renal pelvis without obstruction, proximal to UPJ with the patient in supine position. This is new from prior exam. No prakash hydronephrosis or ureter or bladder stone. 2. Prostatomegaly. 3. Mild fat-containing left inguinal hernia. 4. Mild distention of the appendix with dense inspissated material in most of the lumen. Small tapering tip and small origin and proximal appendix. No convincing evidence of appendicitis. 5. Mild distal colon and diverticulosis. 6. Moderate stool in most of the right colon and proximal half of the transverse colon. Electronically Signed: Starla Yeager MD at 6:09 EDT ,
[2022-12-09] MEDS: Lactated Ringers 1,000 ML 15 ML IV (06:30)
[2022-12-09] MEDS: Cefazolin 2 GM in 0.9% Normal Saline 100 ML IV (07:30)
[2022-12-09 08:45] LABS: Bedside Glucose 117 mg/dL (74-106)
--- NOTE | 2022-12-09 09:14 | PCM.HP.STD ---
HPI - General General Date of Service: 12/09/22 Chief Complaint: Right multiple large kidney stones HPI Narrative TERESA RAINEY, is a 72 M who presents for a right ureteroscopy laser lithotripsy of stones and possible percutaneous approach. [facility] Medical History (Updated 12/02/22 @ 10:33 by Karoline Redmond) Arthritis Back pain Benign essential tremor BPH (benign prostatic hyperplasia) Cancer Cardiology follow-up encounter Constipation Dietary restriction Essential hypertension History of edema History of pain when walking History of steroid therapy Hyperlipidemia Patient uses snuff Rash Type 2 diabetes mellitus without complication Wears glasses Wears hearing aid Home Medications simvastatin 10 mg tablet 10 mg PO QHS 07/29/16 [History Last Taken 12/08/22] cyclobenzaprine 10 mg tablet 10 mg PO TID PRN Pain Or Fever 11/01/18 [History Last Taken 12/08/22] metformin 500 mg tablet 1,000 mg PO BIDCM 11/01/18 [History Last Taken 12/08/22] omega-3 fatty acids 1,000 mg capsule (Fish Oil Concentrate) 1,000 mg PO DAILY 11/01/18 [History Last Taken Unknown] propranolol 120 mg capsule,24 hr,extended release 120 mg PO DAILY 11/01/18 [History Last Taken 12/09/22] losartan 25 mg tablet 100 mg PO DAILY 05/20/19 [History Last Taken 12/09/22] multivitamin 1 ea PO DAILY 05/20/19 [History Last Taken Unknown] naphazoline 0.24340 %-pheniramine 0.315 % eye drops 2 drp OP PRN PRN Allergies 05/20/19 [History Last Taken 12/08/22] diphenhydramine HCl 25 mg capsule 25 mg PO BID PRN Allergies 05/21/19 [History Last Taken Unknown] docusate sodium 100 mg capsule 100 mg PO QHS PRN Constipation 05/21/19 [History Last Taken 12/08/22] amlodipine 5 mg tablet 5 mg PO DAILY 12/02/22 [History Last Taken 12/09/22] jehnrso-iwefyalliiedg-jmkgcdbc 250 mg-250 mg-65 mg tablet (Excedrin Extra Strength) 1 tab PO Q4H PRN pain 12/02/22 [History Last Taken Unknown] cyanocobalamin-liver extract tablet 1 tab PO DAILY 12/02/22 [History Last Taken Unknown] glipizide 5 mg tablet 5 mg PO BID 12/02/22 [History Last Taken 12/08/22] inulin 2 gram chewable tablet (Prebiotic Fiber) 3 g PO BID 12/02/22 [History Last Taken 12/08/22] oxycodone-acetaminophen 7.5 mg-325 mg tablet 1 tab PO Q6H PRN pain 12/02/22 [History Last Taken Unknown] ciprofloxacin HCl 500 mg tablet (Cipro) 500 mg PO BID #10 tabs 12/09/22 [Rx Last Taken Unknown] phenazopyridine 100 mg tablet (Pyridium) 100 mg PO TID #20 tabs 12/09/22 [Rx Last Taken Unknown] tamsulosin 0.4 mg capsule (Flomax) 0.4 mg PO DAILY #20 caps 12/09/22 [Rx Last Taken Unknown] tramadol 50 mg tablet 50 mg PO TID PRN pain #20 tabs 12/09/22 [Rx Last Taken Unknown] Allergy/AdvReac Type Severity Reaction Status Date / Time amoxicillin Allergy Hives Verified 12/09/22 06:18 Penicillins Allergy Hives Verified 12/09/22 06:18 Family History Father Colon cancer CVA (cerebral vascular accident) Mother Cancer Son Hypertension Surgical History (Updated 12/02/22 @ 10:28 by Karoline Redmond) History of cystoscopy History of fusion of cervical spine History of incision and drainage History of lithotripsy History of tonsillectomy Hx of transurethral resection of prostate Social History (Updated 05/22/19 @ 14:[address] Too Garcia MD) Smoking Status: Current every day smoker tobacco type: smokeless tobacco alcohol intake: current substance use type: does not use caffeine: Yes Type: carbonated beverages Number of servings: 2 Vital Signs Vital Signs Vital Signs: 12/09/22 06:21 12/09/22 06:21 Temperature 97 F L Temperature Source Temporal Pulse Rate 69 Respiratory Rate 16 Respiratory Pattern Normal Blood Pressure 136/69 H Blood Pressure Mean 91 Blood Pressure Source Monitor Blood Pressure Position Semi-Fowlers Blood Pressure Location Right Arm Pulse Ox 97 Oxygen Delivery Method Room Air Weight Weight: 96.3 kg Body Mass Index (BMI) 34.2 Results Lab / Micro Data Labs: Laboratory Results - last 24 hr 09/01/23 06:22: POC Glucose 117 H Radiology Impression Abdomen/Pelvis CT 12/09/22 05:30 IMPRESSION: 1. Bilateral nephrolithiasis. The largest is a large elongated stone in the collapsed right renal pelvis without obstruction, proximal to UPJ with the patient in supine position. This is new from prior exam. No prakash hydronephrosis or ureter or bladder stone. 2. Prostatomegaly. 3. Mild fat-containing left inguinal hernia. 4. Mild distention of the appendix with dense inspissated material in most of the lumen. Small tapering tip and small origin and proximal appendix. No convincing evidence of appendicitis. 5. Mild distal colon and diverticulosis. 6. Moderate stool in most of the right colon and proximal half of the transverse colon. Electronically Signed: Starla Yeager MD at 6:09 EDT ,
--- NOTE | 2022-12-09 09:15 | OP.PCM_ITS ---
Report of Operation Date of Procedure: 12/09/22 Pre-Operative Diagnosis: Multiple large right kidney stones Post-Operative Diagnosis: The same Surgery/Procedure Performed:: Cystoscopy, balloon dilation of the right ureter, placement of access sheath, right ureteroscopy laser lithotripsy of stones and right stent placement Description of Surgical Findings:: Patient was taken back to the operating room at the smooth induction of anesthesia he was placed in dorsolithotomy position. The penis and testicles were prepped and draped in usual sterile fashion. I went in the bladder with a 21 [place] rigid cystourethroscope. He had a prior TURP in the prostate some minor regrowth of the prostatic channel. I then identified the right ureteral orifice cannulated with a wire and advanced a balloon dilator and balloon dilated the distal right ureter then over the wire advanced an access sheath all the way up to the kidney and then to the access sheath I went in with a flexible ureteroscope once I reached the renal pelvis I saw there was 1 large stone in the renal pelvis that measured 1.5's centimeters in size and then there were 2 other stones behind this each measured about 7 mm in size. I used a 270 ?m laser fiber we used manual irrigation and I lasered the for stone little tiny pieces recent second stone lasered the second stone little tiny pieces which 1/3 stone and laser the third stone in October tiny pieces took a long time to laser all the stones laser time was an hour and a half. After a laser the stones for an hour and a half always left is dust fragments that should pass in around I then put a wire through the access sheath back to the access sheath out the wire and over the wire I then placed a stent up into the right kidney. I drained the bladder and the stent was in good position and the patient should follow-up in 2 weeks in my office for cystoscopy stent removal. Surgeon: Duke Logan Type of Anesthesia: General Drains: stent right side Estimated Blood Loss (mL): 0 Admit VTE Documentation VTE Present on Admission: No VTE Mechan Device Prophylaxis: SCD's VTE Pharm Prophylaxis ordered?: No
--- NOTE | 2022-12-09 09:15 | PCM.DC ---
Discharge Instructions Diet Discharge Diet: No restrictions Activity Discharge Activity: Return to Normal Activity and May Not Drive (while taking narcotic pain medications.) Follow Up Care Please Follow Up With: Duke Logan MD When: Call [phone] for an appointment Test Results: Test results from this visit will be discussed in further detail at your follow-up appointment, if applicable. Discharge Plan Admission Primary Reason for Your Visit: right ,kidney stone Attending Provider: Duke Logan Primary Care Provider: Shant Rojas Discharge Orders/Prescriptions Prescriptions: New ciprofloxacin HCl [Cipro] 500 mg tablet 500 mg PO BID Qty: 10 0RF tamsulosin [Flomax] 0.4 mg capsule 0.4 mg PO DAILY Qty: 20 0RF phenazopyridine [Pyridium] 100 mg tablet 100 mg PO TID Qty: 20 0RF tramadol 50 mg tablet 50 mg PO TID PRN (Reason: pain) Qty: 20 0RF Continued propranolol 120 mg capsule,extended release 24 hr 120 mg PO DAILY omega-3 fatty acids [Fish Oil Concentrate] 1,000 mg capsule 1,000 mg PO DAILY cyclobenzaprine 10 mg tablet 10 mg PO TID PRN (Reason: Pain Or Fever) docusate sodium 100 mg capsule 100 mg PO QHS PRN (Reason: Constipation) simvastatin 10 MG tablet 10 mg PO QHS metformin 500 mg tablet 1,000 mg PO BIDCM multivitamin 1 EACH tablet 1 ea PO DAILY losartan 25 MG tablet 100 mg PO DAILY naphazoline-pheniramine 15 ML drops 2 drp OP PRN PRN (Reason: Allergies) diphenhydramine HCl 25 mg capsule 25 mg PO BID PRN (Reason: Allergies) oxycodone-acetaminophen 7.5-325 mg tablet 1 tab PO Q6H PRN (Reason: pain) Patient Comments: 1 TABLET BY MOUTH EVERY 6 HOURS NEEDED cyanocobalamin-liver extract Tablet 1 tab PO DAILY Excedrin Extra Strength 250-250-65 mg tablet 1 tab PO Q4H PRN (Reason: pain) Prebiotic Fiber 2 gram tablet,chewable 3 g PO BID amlodipine 5 mg tablet 5 mg PO DAILY glipizide 5 mg tablet 5 mg PO BID Other Ambulatory Orders: Abdomen Single View (Routine) Timeframe: 20221209 Facility: [facility] - Location: [facility] Ordered By: Dr. Duke Logan Referrals / Follow Up: Duke Logan MD [Med Staff - Active Staff] - Shant Rojas DO [Primary Care Provider] - Disposition Disposition (needs filled in before D/C Order can be placed): Home, Self Care
[2022-12-09] MEDS: Ipratropium/Albuterol Sulfate 3 ML AMPUL.NEB INHALATION (09:41)
[2022-12-09] MEDS: Ketorolac 15 MG/ML Vial IV (10:30)
== END 2022-12-09 11:24 | disposition home or self-care (01) ==
LOC: SDC 05:35 → AC 05:38
PROVIDERS: PCP Family Medicine; Referring Provider Urology; Visit Provider Urology
PROC: (CPT 52356; principal; 2022-12-09 07:10)
DX: N20.0 Calculus of kidney (principal); Z79.4 Long term (current) use of insulin; E11.9 Type 2 diabetes mellitus without complications; I10 Essential (primary) hypertension; F17.220 Nicotine dependence, chewing tobacco, uncomplicated; Z79.899 Other long term (current) drug therapy; Z79.84 Long term (current) use of oral hypoglycemic drugs
CPT/HCPCS: 52356; 00873; 74176; 82962; 94640; J7120; C1726; C1769; C2617; J2405

== ENCOUNTER 2022-12-12 19:06 | Emergency (ER) | payer MEDICARE, SELFPAY ==
[2022-12-12 19:08] VITALS: BP 136/55; PULSE 79; RESP 20; TEMP 36; O2SAT 94; BMI 35.0
--- NOTE | 2022-12-12 19:39 | EKG12_ITS ---
Test Reason : DYSRHYTHMIA Blood Pressure : / mmHG Vent. Rate : 076 BPM Atrial Rate : 076 BPM P-R Int : 182 ms QRS Dur : 088 ms QT Int : 372 ms P-R-T Axes : 022 -37 074 degrees QTc Int : 418 ms Normal sinus rhythm Left axis deviation Abnormal ECG Confirmed by PADMINI PATINO, CARLYN ([id number]), avid editor JC FINE ([id number]) on 12/16/2022 11:33:49 AM Referred By: Confirmed By:CARLYN WASHINGTON MD
--- NOTE | 2022-12-12 19:39 | CT_ITS ---
INDICATION: right flank pain EXAMINATION: CT ABDOMEN AND PELVIS WITHOUT CONTRAST - CT Abdomen And Pelvis W/O Contrast Injection TECHNIQUE: Helically acquired images were obtained of the abdomen and pelvis without oral or IV contrast. A radiation dose optimization technique was used for this scan. IV Contrast dosage and agent: None. Oral contrast: None. COMPARISON: 12/09/2022 FINDINGS: LOWER CHEST: Lung bases are clear. No cardiomegaly or pericardial effusion. LIVER: Homogeneous. No focal mass. GALLBLADDER AND BILIARY TREE: No calcified gallstones. No gallbladder distension or wall edema. No intra- or extrahepatic biliary ductal dilation. PANCREAS: No focal cystic or solid mass. SPLEEN: Normal size without focal cystic or solid mass. ADRENAL GLANDS: No nodules. KIDNEYS AND URETERS: Bilateral nonobstructing renal calculi. Interval placement of double-J right ureteral stent. Large calculus in the right renal pelvis no longer present. No ureteral calculus present. 6 mm calculus in the bladder lumen at the right ureteral orifice not present on prior study. No hydronephrosis. PERITONEUM: No ascites or free air. BOWEL: Noninflamed appendix. No stomach or bowel distension. No focal inflammatory change. Persistent increased colonic fecal burden. LYMPH NODES: No enlarged mesenteric or retroperitoneal lymph nodes. VESSELS: Aorta is non-dilated. REPRODUCTIVE ORGANS: Prostate hypertrophy with calcifications. ABDOMINAL WALL: Stable fat-containing left inguinal hernia. BONES: No acute or aggressive abnormality. CT/Abdomen/Pelvis without Cont IMPRESSION: Interval placement of right ureteral stent without significant residual right hydronephrosis. 6 mm calculus in the bladder lumen adjacent to the right ureteral orifice. Electronically Signed: Edmund Yeboah MD at 21:11 EDT ,
--- NOTE | 2022-12-12 19:40 | EDS_ITS ---
HPI History of Present Illness Chief Complaint: Weakness Informant: patient and spouse/S.O. Onset/Context/Timing Onset: Today Narrative Narrative: Patient presents with increased fatigue and weakness at home today. Last Monday he had lithotripsy for right-sided kidney stones. He does have a right-sided stent in place. He normally takes gabapentin 3 times daily. Apparently he took 2 doses 2 hours apart today. He is also taking oxycodone for pain. states he seemed to be more fatigued and weak after doing this and she thinks that he took the medication too close together. She does report that he had a low-grade fever last night. He has no significant cough or congestion. [facility] Medical History Arthritis Back pain Benign essential tremor BPH (benign prostatic hyperplasia) Cancer Cardiology follow-up encounter Constipation Dietary restriction Essential hypertension History of edema History of pain when walking History of steroid therapy Hyperlipidemia Patient uses snuff Rash Type 2 diabetes mellitus without complication Wears glasses Wears hearing aid Home Medications simvastatin 10 mg tablet 10 mg PO QHS 07/29/16 [History Last Taken 12/08/22] cyclobenzaprine 10 mg tablet 10 mg PO TID PRN Pain Or Fever 11/01/18 [History Last Taken 12/08/22] metformin 500 mg tablet 1,000 mg PO BIDCM 11/01/18 [History Last Taken 12/08/22] omega-3 fatty acids 1,000 mg capsule (Fish Oil Concentrate) 1,000 mg PO DAILY 11/01/18 [History Last Taken Unknown] propranolol 120 mg capsule,24 hr,extended release 120 mg PO DAILY 11/01/18 [History Last Taken 12/09/22] losartan 25 mg tablet 100 mg PO DAILY 05/20/19 [History Last Taken 12/09/22] multivitamin 1 ea PO DAILY 05/20/19 [History Last Taken Unknown] naphazoline 0.52932 %-pheniramine 0.315 % eye drops 2 drp OP PRN PRN Allergies 05/20/19 [History Last Taken 12/08/22] diphenhydramine HCl 25 mg capsule 25 mg PO BID PRN Allergies 05/21/19 [History Last Taken Unknown] docusate sodium 100 mg capsule 100 mg PO QHS PRN Constipation 02/11/20 [History Last Taken 12/08/22] amlodipine 5 mg tablet 5 mg PO DAILY 12/02/22 [History Last Taken 12/09/22] uyjdtos-hltvzzqfpgwgo-ftibbovl 250 mg-250 mg-65 mg tablet (Excedrin Extra Strength) 1 tab PO Q4H PRN pain 12/02/22 [History Last Taken Unknown] glipizide 5 mg tablet 5 mg PO BID 12/02/22 [History Last Taken 12/08/22] inulin 2 gram chewable tablet (Prebiotic Fiber) 3 g PO BID 12/02/22 [History Last Taken 12/08/22] oxycodone-acetaminophen 7.5 mg-325 mg tablet 1 tab PO Q6H PRN pain 12/02/22 [History Last Taken Unknown] ciprofloxacin HCl 500 mg tablet (Cipro) 500 mg PO BID #10 tabs 12/09/22 [Rx Last Taken Unknown] phenazopyridine 100 mg tablet (Pyridium) 100 mg PO TID #20 tabs 12/09/22 [Rx Last Taken Unknown] tamsulosin 0.4 mg capsule (Flomax) 0.4 mg PO DAILY #20 caps 12/09/22 [Rx Last Taken Unknown] tramadol 50 mg tablet 50 mg PO TID PRN pain #20 tabs 12/09/22 [Rx Last Taken Unknown] Allergy/AdvReac Type Severity Reaction Status Date / Time amoxicillin Allergy Hives Verified 12/12/22 19:14 Penicillins Allergy Hives Verified 12/12/22 19:14 tramadol AdvReac Severe Other Verified 12/12/22 19:14 Family History Father Colon cancer CVA (cerebral vascular accident) Mother Cancer Son Hypertension Surgical History History of cystoscopy History of fusion of cervical spine History of incision and drainage History of lithotripsy History of tonsillectomy Hx of transurethral resection of prostate Social History Smoking Status: Current every day smoker tobacco type: smokeless tobacco alcohol intake: current substance use type: does not use caffeine: Yes Type: carbonated beverages Number of servings: 2 ROS ROS ED Constitutional Constitutional ED: Reports fever(s); Denies chills Eyes Eyes: Denies change in vision or discharge from eye(s) ENT ENT ED: Denies discharge from eye(s), rhinorrhea or sore throat Cardiovascular Cardiovascular: Denies chest pain or palpitations Respiratory/Chest Respiratory/Chest: Denies cough or dyspnea Gastrointestinal Gastrointestinal: Denies abdominal pain, diarrhea, nausea or vomiting Genitourinary Genitourinary ED: Denies dysuria Musculoskeletal Musculoskeletal: Reports back pain; Denies extremity pain Integumentary Denies Abrasions or rash Neurologic Neurologic: Reports weakness; Denies headache(s) Psychiatric Psychiatric: Denies anxiety or depression Allergic/Immunologic Allergic/Immunologic ED: Denies lip swelling or urticaria EXAM Physical Exam Const Vital Signs: 12/12/22 19:08 12/12/22 19:12 12/12/22 21:19 Temperature 96.8 F L Temperature Source Temporal Pulse Rate 79 82 Respiratory Rate 20 H 20 H Respiratory Pattern Normal Normal Blood Pressure 136/55 H Blood Pressure Mean 82 Pulse Ox 94 Oxygen Delivery Method Room Air 12/12/22 21:07 Temperature Temperature Source Pulse Rate 76 Respiratory Rate 22 H Respiratory Pattern Blood Pressure 157/89 H Blood Pressure Mean 111 Pulse Ox 93 Oxygen Delivery Method Room Air Positive well nourished and well developed General Appearance ED: well developed HEENT Reports moist mucous membranes Eyes EOMs intact bilaterally Chest Wall inspection of chest normal and palpation of chest normal Resp normal respiratory effort and clear to auscultation bilaterally Cardio regular rate and regular rhythm GI non-tender Palpation: soft Extremity Extremity Narrative: 2+ bilateral lower extremity edema, symmetric Neuro oriented x3 Neuro Narrative: Generalized weakness with no focal deficits Skin no rashes or lesions noted MDM MDM MDM Narrative Medical decision making narrative: Patient placed on equipment monitor phototypesetting. IV fluids initiated. EKG obtained to evaluate for cardiac arrhythmia/ischemia. Labwork obtained to evaluate for leukocytosis, anemia, and electrolyte derangement. Urinalysis obtained to evaluate for infection/hematuria. CT flank obtained to evaluate status of renal stent and stones. History & Record Review Discussion w/independent historian: Patient and Significant other Additional record(s) reviewed:: Prior outpatient record and Prior labs Lab Data Attestation: I reviewed the patient's lab results. Labs: Laboratory Results - last 24 hr 12/12/22 12/12/22 19:55 20:00 WBC 7.7 RBC 4.08 L Hgb 12.9 L Hct 39.1 L MCV 95.8 H MCH 31.6 MCHC 33.0 RDW Std Deviation 42.6 RDW Coeff of Ethel 12.1 Plt Count 189 MPV 10.4 Immature Gran % (Auto) 0.400 Neut % (Auto) 70.3 H Lymph % (Auto) 15.5 L Vigo % (Auto) 12.9 H Eos % (Auto) 0.4 Baso % (Auto) 0.5 Absolute Neuts (auto) 5.4 Absolute Lymphs (auto) 1.20 Nucleated RBC % 0 Sodium 137 Potassium 4.1 Chloride 103 Carbon Dioxide 27.0 Anion Gap 7 BUN 21 H Creatinine 1.39 H Estim Creat Clear Calc 43.35 Est GFR (MDRD) Af Amer 65 Est GFR (MDRD) Non-Af 53 L BUN/Creatinine Ratio 15.1 Glucose 157 H Lactic Acid 2.5 H* Calcium 9.3 Urine Color Brown Urine Clarity Cloudy Urine pH 5.0 Ur Specific Corinne 1.020 Urine Protein 100 H Urine Glucose (UA) 100 H Urine Ketones 15 H Urine Occult Blood 250 H Urine Nitrite Positive H Urine Bilirubin 6 H Urine Urobilinogen 8 H Ur Leukocyte Esterase 100 H Urine RBC > 100 SEEN Urine WBC 0-5 SEEN Ur Squamous Epith Cells 0 SEEN Urine Bacteria 1+ Urine Mucus 0 SEEN Radiography Chest X-Ray - ED: 1 View, Read by ED Physician, Chronic Changes and No Infiltrates Diagnostic Testing: Clinical Impression(s) from Imaging Studies Abdomen/Pelvis CT 12/12/22 19:39 IMPRESSION: Interval placement of right ureteral stent without significant residual right hydronephrosis. 6 mm calculus in the bladder lumen adjacent to the right ureteral orifice. Electronically Signed: Edmund Yeboah MD at 21:11 EDT , Chest X-Ray 12/12/22 21:02 IMPRESSION: No radiographic evidence of acute cardiopulmonary disease. Electronically Signed: Edmund Yeboah MD at 21:20 EDT , EKG Initial EKG: Attestation: I personally reviewed and interpreted this EKG as follows: Interpretation: Sinus Rhythm (Sinus at 76 with no acute ischemia.) Treatment and Re-Evaluation :: CBC was normal white count at 7.7 with 70% neutrophils. Hemoglobin is 12.9. Chemistry studies reveal a BUN of 21 and creatinine 1.39. This is only slightly bumped when compared to prior values. He was given IV fluids for hydration. Lactic acid is slightly elevated at 2.5. Glucose is 157. Urinalysis is positive for nitrites with greater than 100 red cells and 1+ bacteria. Patient does have a ureteral stent in place. Portable chest x-ray per my interpretation reveals chronic changes with no focal infiltrate. Radiology interpretation is reviewed and agrees. CT scan of the flank reveals right ureteral stent in good position. There is no significant residual hydronephrosis on the right. A 6 mm stone is noted in the bladder. The patient has been given IV fluids along with a dose of IV Rocephin here for his urine. He is already on Cipro at home. I discussed with patient and that these changes in the urine may be secondary to his stent. A urine was sent for culture as well. Patient reported did have a fall this afternoon and is now complaining of some left elbow pain. Left elbow x-rays are added in per my interpretation reveal no evidence of fracture. Amrik wrap is applied. Patient's temperature at this time is 99. He states he is starting to feel little hungry and would like to go home to eat. Although his lactic acid is slightly elevated, I do not think he has overt signs of sepsis. He is already on antibiotics. is comfortable caring for him at home and they are encouraged to return for any worsening symptoms or concerns. Discharge Plan Triage Chief Complaint: Weakness ED Provider: Bessie Haro Dx/Rx/DC Orders Clinical Impression: Weakness, Fall Instructions: ED Weakness (Uncertain Cause) Prescriptions: No Action propranolol 120 mg capsule,extended release 24 hr 120 mg PO DAILY omega-3 fatty acids [Fish Oil Concentrate] 1,000 mg capsule 1,000 mg PO DAILY cyclobenzaprine 10 mg tablet 10 mg PO TID PRN (Reason: Pain Or Fever) docusate sodium 100 mg capsule 100 mg PO QHS PRN (Reason: Constipation) simvastatin 10 MG tablet 10 mg PO QHS metformin 500 mg tablet 1,000 mg PO BIDCM multivitamin 1 EACH tablet 1 ea PO DAILY losartan 25 MG tablet 100 mg PO DAILY naphazoline-pheniramine 15 ML drops 2 drp OP PRN PRN (Reason: Allergies) diphenhydramine HCl 25 mg capsule 25 mg PO BID PRN (Reason: Allergies) oxycodone-acetaminophen 7.5-325 mg tablet 1 tab PO Q6H PRN (Reason: pain) Patient Comments: 1 TABLET BY MOUTH EVERY 6 HOURS NEEDED Excedrin Extra Strength 250-250-65 mg tablet 1 tab PO Q4H PRN (Reason: pain) Prebiotic Fiber 2 gram tablet,chewable 3 g PO BID amlodipine 5 mg tablet 5 mg PO DAILY glipizide 5 mg tablet 5 mg PO BID ciprofloxacin HCl [Cipro] 500 mg tablet 500 mg PO BID Qty: 10 0RF tamsulosin [Flomax] 0.4 mg capsule 0.4 mg PO DAILY Qty: 20 0RF phenazopyridine [Pyridium] 100 mg tablet 100 mg PO TID Qty: 20 0RF tramadol 50 mg tablet 50 mg PO TID PRN (Reason: pain) Qty: 20 0RF Primary Care Provider: Shant Rojas Referrals: Duke Logan MD [Med Staff - Active Staff] - 5-7 Days Shant Rojas DO [Primary Care Provider] - 3-5 Days if not improving Disposition Disposition: Home, Self Care
[2022-12-12 20:09] LABS: Mucous, Urine 0 SEEN /hpf (<or=2+); Squamous Epithelial Cells - UA 0 SEEN /hpf (0-5)
[2022-12-12 20:09] LABS: Absolute Neutrophil Count 5.4 X10^3/uL (2.0-7.7); Basophil# 0.04 X10^3/uL; Basophil% 0.5 % (0-1); Eosinophil# 0.03 X10^3/uL; Eosinophils% 0.4 % (0-5); Hematocrit 39.1 % (40-54); Hemoglobin 12.9 g/dL (13.0-16.5); Lymphocyte % 15.5 % (19-41); Mean Corpuscular Hgb 31.6 pg (27.0-32.0); Mean Corpuscular Volume 95.8 fL (80-94); Mean Platelet Vol. 10.4 fl (6.2-12.0); Monocyte% 12.9 % (0-10); NRBC Flagged by Analyzer 0 % (0-5); Neutrophil # 5.43 X10^3/uL (2.7-7.7); Neutrophil % 70.3 % (47-70); Platelet Count 189 K/mm3 (150-450); RBC Distribution Width CV 12.1 % (11.6-14.6); RBC Distribution Width SD 42.6 fl (35.1-43.9); Red Blood Count 4.08 M/mm3 (4.6-6.2); White Blood Count 7.7 K/mm3 (4.4-11.0)
[2022-12-12] MEDS: 0.9% Normal Saline 1,000 ML 150 ML IV (20:09)
[2022-12-12 20:17] LABS: Color, Urine Brown (Yellow); Glucose, Dipstick 100 mg/dl (Normal); Ketone-Dipstick 15 mg/dl (Negative); Leukocyte Esterase-Dipstick 100 /ul (Negative); Nitrite-Dipstick Positive (Negative); Occult Blood-Urine 250 /ul (Negative); Protein-Dipstick 100 mg/dl (Negative); Urine Bilirubin Dipstick 6 mg/dL (Negative); Urine Clarity Cloudy (Clear); Urine Urobilinogen 8 mg/dl (Normal)
[2022-12-12 20:22] LABS: Anion Gap 7 (5-15); BUN 21 mg/dL (7-18); BUN/Creat Ratio 15.1 RATIO (10-20); Calcium,Total 9.3 mg/dL (8.5-10.1); Chloride 103 mmol/L (98-107); Creatinine, Serum 1.39 mg/dL (0.70-1.30); EST Glomerular Filtration Rate 53 mL/min (>60); Est Glom Filt Rate - Afr Amer 65 mL/min (>60); Estimated Creatinine Clearance 43.35 ml/min; Glucose 157 mg/dL (74-106); Potassium 4.1 mmol/L (3.5-5.1); Sodium Level 137 mmol/L (136-145)
[2022-12-12 20:31] LABS: White Blood Cells 0-5 SEEN /hpf (0-5)
[2022-12-12 20:32] LABS: Bacteria 1+ /hpf (None Seen); Red Blood Cells-Urine > 100 SEEN /hpf (0-5)
[2022-12-12 20:58] LABS: Lactic Acid 2.5 mmol/L (0.4-1.9)
--- NOTE | 2022-12-12 21:02 | RAD_ITS ---
INDICATION: sob EXAMINATION/TECHNIQUE: X-RAY - portable upright AP chest x-ray COMPARISON: None. FINDINGS: LINES/DEVICES: None. LUNGS: No consolidation, edema or effusion. No pneumothorax. MEDIASTINUM AND CARDIOVASCULAR STRUCTURES: Cardiac silhouette not enlarged. Central airways and mediastinal contour are unremarkable. BONES AND SOFT TISSUES: No acute findings. RAD/Chest 1 View (Portable) IMPRESSION: No radiographic evidence of acute cardiopulmonary disease. Electronically Signed: Edmund Yeboah MD at 21:20 EDT ,
[2022-12-12 21:07] VITALS: BP 157/89; PULSE 76; RESP 22; O2SAT 93
[2022-12-12 21:19] VITALS: PULSE 82; RESP 20
[2022-12-12] MEDS: Ipratropium/Albuterol Sulfate 3 ML AMPUL.NEB INHALATION (21:19)
[2022-12-12] MEDS: Ceftriaxone 1 GM/50 ML BAG IV (21:34)
--- NOTE | 2022-12-12 22:27 | RAD_ITS ---
INDICATION: Trauma, fall, injury with elbow pain EXAMINATION/TECHNIQUE: X-RAY - LEFT XR Elbow Min 3 Views 5 VIEWS COMPARISON: None. FINDINGS: SOFT TISSUES: No soft tissue swelling or gas. No radiopaque foreign body. BONES/JOINTS: No acute fracture. Joint spaces anatomically aligned with mild degenerative changes medially. No sclerotic or destructive changes observed. RAD/Elbow min 3 Views IMPRESSION: No acute bony injury. Electronically Signed: Edmund Yeboah MD at 22:48 EDT ,
[2022-12-13 00:07] LABS: Reflex Lactate? Y
== END 2022-12-12 23:16 | disposition home or self-care (01) ==
PROVIDERS: Emergency Provider Emergency Medicine; PCP Family Medicine; Visit Provider Emergency Medicine
DX: R53.1 Weakness (principal); E11.9 Type 2 diabetes mellitus without complications; Z79.4 Long term (current) use of insulin; E78.5 Hyperlipidemia, unspecified; I10 Essential (primary) hypertension; F17.220 Nicotine dependence, chewing tobacco, uncomplicated; N40.0 Benign prostatic hyperplasia without lower urinary tract symptoms; Z79.899 Other long term (current) drug therapy; Z79.84 Long term (current) use of oral hypoglycemic drugs; Z79.82 Long term (current) use of aspirin
CPT/HCPCS: 71045; 73080; 74176; 80048; 81001; 83605; 85025; 87040; 87086; 93005; 94640; 96365; 99284; J7030; A4216

== ENCOUNTER 2023-01-02 13:00 | Emergency (ER) | payer MEDICARE, OTHER, SELFPAY ==
[2023-01-02 13:02] VITALS: BP 135/60; PULSE 79; RESP 21; TEMP 36.4; O2SAT 96; BMI 34.3
--- NOTE | 2023-01-02 13:36 | CT_ITS ---
STUDY: CT BRAIN WITHOUT CONTRAST REASON FOR EXAM: Male, 72 years old. Weakness RADIATION DOSAGE (If Supplied By Facility): CTDIvol = ( 44.99 ) mGy, DLP = ( 829.85 ) mGycm TECHNIQUE: Transaxial CT imaging of the brain was performed without administration of intravenous contrast material. Individualized dose optimization techniques were used for this CT. COMPARISON: No relevant priors. FINDINGS: Normal soft tissue structures. Normal calvarium. There is mild cerebral atrophy with widening of the extra-axial spaces and ventricular dilatation. Normal white matter tracts of the cerebral hemispheres. Normal basal ganglia and thalami. Normal brainstem. Normal cerebellum. There is no intracranial hemorrhage. There are no findings of an acute ischemic infarction. Atherosclerotic plaque formation of the vertebral arteries and cavernous portions of the internal carotid arteries bilaterally. Normal visualized paranasal sinuses. CT/Brain/Head without Contrast IMPRESSION: Chronic involutional changes of the brain. Electronically Signed: Rogelio Sprague MD at 14:19 EDT ,
[2023-01-02 13:54] LABS: Bacteria 0 SEEN /hpf (None Seen); Mucous, Urine 0 SEEN /hpf (<or=2+); Squamous Epithelial Cells - UA 0 SEEN /hpf (0-5)
[2023-01-02 13:56] LABS: Color, Urine Yellow (Yellow); Glucose, Dipstick 100 mg/dl (Normal); Ketone-Dipstick 15 mg/dl (Negative); Leukocyte Esterase-Dipstick 100 /ul (Negative); Nitrite-Dipstick Negative (Negative); Occult Blood-Urine 10 /ul (Negative); Protein-Dipstick 30 mg/dl (Negative); Urine Bilirubin Dipstick Negative (Negative); Urine Clarity Clear (Clear); Urine Urobilinogen Normal (Normal)
[2023-01-02] MEDS: 0.9% Normal Saline (500mL Bag) 500 ML 1000 ML IV (13:57)
[2023-01-02 14:04] LABS: Absolute Lymphocyte Count 1.64 X10^3/uL (0.83-4.51); Absolute Neutrophil Count 6.7 X10^3/uL (2.0-7.7); Basophil# 0.04 X10^3/uL; Basophil% 0.4 % (0-1); Eosinophil# 0.19 X10^3/uL; Hematocrit 34.6 % (40-54); Hemoglobin 11.6 g/dL (13.0-16.5); Lymphocyte # 1.64 X10^3/ul (0.83-4.51); Lymphocyte % 17.4 % (19-41); Mean Corp Hgb Conc 33.5 g/dL (32-36); Mean Corpuscular Hgb 30.9 pg (27.0-32.0); Mean Corpuscular Volume 92.3 fL (80-94); Mean Platelet Vol. 10.5 fl (6.2-12.0); Monocyte# 0.84 X10^3/uL; Monocyte% 8.9 % (0-10); NRBC Flagged by Analyzer 0 % (0-5); Neutrophil # 6.68 X10^3/uL (2.7-7.7); Neutrophil % 70.8 % (47-70); Platelet Count 225 K/mm3 (150-450); RBC Distribution Width SD 40.7 fl (35.1-43.9); Red Blood Count 3.75 M/mm3 (4.6-6.2); White Blood Count 9.4 K/mm3 (4.4-11.0)
--- NOTE | 2023-01-02 14:04 | EX.ED.DYSGE1 ---
HPI History of Present Illness Chief Complaint: Weakness Informant: patient and spouse/S.O. Narrative Narrative: Presents with weakness. Patient had his first episode of this about 12 December. But it was thought that this might be related to being postoperative from kidney stone surgery as well as increasing meds. Work-up showed no acute process. Patient was feeling better and went home. He may have had a mild episode in between. He was seen by his doctor this but he was feeling well. Monday afternoon evening he started to feel weak again. He states he gets to the point he just cannot walk. Both his arms and legs seem to have no energy. Family states he also seems occasionally just mildly confused. They also noticed that his hand mouth coordination gets off a little bit. Patient's also had a little bit of urgency. He was told this urgency is likely due to enlarged prostate. It does not burn when he goes. He is not having incontinence. Family states that he is not walking now for about 2 or so days. He is just too weak. But he was not wobbly prior to this. He has no history of normal pressure hydrocephalus. He had an increase of his gabapentin recently but that was done after his first episode. Does not have a lateralizing findings. No headache. No vomiting. He is eating and drinking. [facility] Medical History Arthritis Back pain Benign essential tremor BPH (benign prostatic hyperplasia) Cancer Cardiology follow-up encounter Constipation Dietary restriction Essential hypertension History of edema History of pain when walking History of steroid therapy Hyperlipidemia Patient uses snuff Rash Type 2 diabetes mellitus without complication Wears glasses Wears hearing aid Home Medications simvastatin 10 mg tablet 10 mg PO QHS 07/29/16 [History Last Taken 12/08/22] cyclobenzaprine 10 mg tablet 10 mg PO TID PRN Pain Or Fever 11/01/18 [History Last Taken 12/08/22] metformin 500 mg tablet 1,000 mg PO BIDCM 11/01/18 [History Last Taken 12/08/22] omega-3 fatty acids 1,000 mg capsule (Fish Oil Concentrate) 1,000 mg PO DAILY 11/01/18 [History Last Taken Unknown] propranolol 120 mg capsule,24 hr,extended release 120 mg PO DAILY 11/01/18 [History Last Taken 12/09/22] losartan 25 mg tablet 100 mg PO DAILY 05/20/19 [History Last Taken 12/09/22] multivitamin 1 ea PO DAILY 05/20/19 [History Last Taken Unknown] naphazoline 0.12666 %-pheniramine 0.315 % eye drops 2 drp OP PRN PRN Allergies 05/20/19 [History Last Taken 12/08/22] diphenhydramine HCl 25 mg capsule 25 mg PO BID PRN Allergies 05/21/19 [History Last Taken Unknown] docusate sodium 100 mg capsule 100 mg PO QHS PRN Constipation 05/21/19 [History Last Taken 12/08/22] amlodipine 5 mg tablet 5 mg PO DAILY 12/02/22 [History Last Taken 12/09/22] yfeitql-gyunvaexdlkgi-qzbhuozo 250 mg-250 mg-65 mg tablet (Excedrin Extra Strength) 1 tab PO Q4H PRN pain 12/02/22 [History Last Taken Unknown] glipizide 5 mg tablet 5 mg PO BID 12/02/22 [History Last Taken 12/08/22] inulin 2 gram chewable tablet (Prebiotic Fiber) 3 g PO BID 12/02/22 [History Last Taken 12/08/22] oxycodone-acetaminophen 7.5 mg-325 mg tablet 1 tab PO Q6H PRN pain 12/02/22 [History Last Taken Unknown] ciprofloxacin HCl 500 mg tablet (Cipro) 500 mg PO BID #10 tabs 12/09/22 [Rx Last Taken Unknown] phenazopyridine 100 mg tablet (Pyridium) 100 mg PO TID #20 tabs 12/09/22 [Rx Last Taken Unknown] tamsulosin 0.4 mg capsule (Flomax) 0.4 mg PO DAILY #20 caps 12/09/22 [Rx Last Taken Unknown] tramadol 50 mg tablet 50 mg PO TID PRN pain #20 tabs 12/09/22 [Rx Last Taken Unknown] Allergy/AdvReac Type Severity Reaction Status Date / Time amoxicillin Allergy Hives Verified 12/12/22 19:14 Penicillins Allergy Hives Verified 12/12/22 19:14 tramadol AdvReac Severe Other Verified 12/12/22 19:14 Family History Father Colon cancer CVA (cerebral vascular accident) Mother Cancer Son Hypertension Surgical History History of cystoscopy History of fusion of cervical spine History of incision and drainage History of lithotripsy History of tonsillectomy Hx of transurethral resection of prostate Social History Smoking Status: Never smoker alcohol intake: current substance use type: does not use caffeine: Yes Type: carbonated beverages Number of servings: 2 ROS ROS ED ROS Narrative A complete review of systems was performed and is negative except as documented in the history of present illness. Some specific details below. Constitutional: No recent fevers or chills. No rigors. Patient has not generally felt ill. Does feel generalized weak. EYE: No discharge, visual complaints, or pain. Full field cut. ENT: No difficulty swallowing. No swelling. No sinus pressure or pain. No nasal discharge. No change in hearing. No ear pain. CV: No chest pain, pressure or aching. No palpitations or irregular beats. Patient has not been presyncopal or syncopal. Just too weak to get up and walk. But he does not feel like he is going to pass out or lose consciousness. Respiratory: No trouble breathing. No cough. No wheezing. No sputum production. No pain with breathing. GI: No abdominal pain. No nausea vomiting diarrhea. No blood in stool. : No frequency dysuria or hematuria. Does have some urgency but this does not sound like it is new. Musculoskeletal: No recent trauma. No pains. No swelling. Skin: No rash. Nondiaphoretic. Neuro: No focal or lateralizing weakness or numbness. No difficulty with speaking. No difficulty understanding speech. No visual loss. Please see history of present illness also. Endocrine: No polyuria or polydipsia. EXAM Physical Exam Narrative Exam Narrative: Is awake alert pleasant. He is not at all sleepy or lethargic. HEENT shows no trauma. Minimally dry mucous membranes. Neck is supple. Heart does sound regular. Peripheral pulses are good. Blood pressure is good. Lungs are clear bilaterally. No coughing. He is not hypoxic. Saturations are normal at 96% on room air. Abdomen is soft and nontender. Extremities show no notable rashes. Trace pretibial edema. Neurologic: He is awake he is alert and oriented x3. His ncwdts-io-mjzo is actually pretty good for me. Family states it is better now than it was yesterday. He has global weakness but no lateralizing findings. He has trouble lifting either one of his legs off the bed even. I do not get any notable sensory change. Const Vital Signs: 01/02/23 13:02 01/02/23 13:11 Temperature 97.6 F L Temperature Source Temporal Pulse Rate 79 Respiratory Rate 21 H Respiratory Effort Normal Respiratory Pattern Normal Blood Pressure 135/60 H Blood Pressure Mean 85 Pulse Ox 96 Oxygen Delivery Method Room Air MDM MDM MDM Narrative Medical decision making narrative: My independent interpretation of the patient's CT of the head does show some atrophy. No acute bleed final reading showed chronic involutional changes. I looked at this compared to an MRI that was done in April. Although these are different studies I am not seeing any gross difference in size of the ventricles. See CT shows minimal anemia that would not be the cause of his symptoms. Patient's electrolytes are overall relatively normal. Sodium is minimally low at 134. Again this would not cause his symptoms. Glucose is slightly high at 258. Patient's lites are normal. No patient is urine is clean and normal. We will give the patient some IV fluids. We walked him and he actually did pretty well. He walked to his edge of the door and back and moved himself up on the bed. He is now walked to the bathroom and back. He feels well. His family was surprised at how well he did. He was a little unstable but this is not uncommon for him. We are now thinking that some of this may be due to a. He he has had some changes. I find out he is also on Flexeril. He is on gabapentin that was just doubled. He takes oxycodone. He has been taking Flexeril that was a as needed muscle relaxant. He is taking this to prevent muscle spasms. We discussed that may be cutting this back would be appropriate. If he is not improving with medication reduction he may need further work-up. He has a history of a lot of back problems but is not clearly displaying spinal stenosis is the source of this. No clear indication of normal pressure hydrocephalus. He would like to go home and they will follow-up as an outpatient. Lab Data Attestation: I reviewed the patient's lab results. Labs: Laboratory Results - last 24 hr 01/02/23 01/02/23 13:49 13:55 WBC 9.4 RBC 3.75 L Hgb 11.6 L Hct 34.6 L MCV 92.3 MCH 30.9 MCHC 33.5 RDW Std Deviation 40.7 RDW Coeff of Ethel 12.0 Plt Count 225 MPV 10.5 Immature Gran % (Auto) 0.500 Neut % (Auto) 70.8 H Lymph % (Auto) 17.4 L [place] % (Auto) 8.9 Eos % (Auto) 2.0 Baso % (Auto) 0.4 Absolute Neuts (auto) 6.7 Absolute Lymphs (auto) 1.64 Nucleated RBC % 0 Sodium 134 L Potassium 3.7 Chloride 100 Carbon Dioxide 25.0 Anion Gap 9 BUN 16 Creatinine 1.06 Estim Creat Clear Calc 56.84 Est GFR (MDRD) Af Amer 88 Est GFR (MDRD) Non-Af 73 BUN/Creatinine Ratio 15.1 Glucose 258 H Calcium 8.9 Total Bilirubin 1.00 AST 10 L ALT 22 Alkaline Phosphatase 61 Total Protein 7.1 Albumin 2.9 L Globulin 4.2 Albumin/Globulin Ratio 0.7 L Urine Color Yellow Urine Clarity Clear Urine pH 6.0 Ur Specific [place] 1.010 Urine Protein 30 H Urine Glucose (UA) 100 H Urine Ketones 15 H Urine Occult Blood 10 H Urine Nitrite Negative Urine Bilirubin Negative Urine Urobilinogen Normal Ur Leukocyte Esterase 100 H Urine RBC Not Reportable Urine WBC 5-10 SEEN Ur Squamous Epith Cells 0 SEEN Urine Bacteria 0 SEEN Urine Mucus 0 SEEN Radiography Diagnostic Testing: Clinical Impression(s) from Imaging Studies Brain CT 01/02/23 13:36 IMPRESSION: Chronic involutional changes of the brain. Electronically Signed: Rogelio Sprague MD at 14:19 EDT , EKG Initial EKG: Comments: My independent interpretation the patient's EKG shows a normal sinus rhythm with overall rate of 73. No ventricular ectopy. Diffuse nonspecific ST and T wave changes. GA interval, QRS duration and QTc are normal. Discharge Plan Triage Chief Complaint: Weakness ED Provider: Blas Copeland Dx/Rx/DC Orders Clinical Impression: Episodic weakness Instructions: ED Weakness (Uncertain Cause) Prescriptions: No Action propranolol 120 mg capsule,extended release 24 hr 120 mg PO DAILY omega-3 fatty acids [Fish Oil Concentrate] 1,000 mg capsule 1,000 mg PO DAILY cyclobenzaprine 10 mg tablet 10 mg PO TID PRN (Reason: Pain Or Fever) docusate sodium 100 mg capsule 100 mg PO QHS PRN (Reason: Constipation) simvastatin 10 MG tablet 10 mg PO QHS metformin 500 mg tablet 1,000 mg PO BIDCM multivitamin 1 EACH tablet 1 ea PO DAILY losartan 25 MG tablet 100 mg PO DAILY naphazoline-pheniramine 15 ML drops 2 drp OP PRN PRN (Reason: Allergies) diphenhydramine HCl 25 mg capsule 25 mg PO BID PRN (Reason: Allergies) oxycodone-acetaminophen 7.5-325 mg tablet 1 tab PO Q6H PRN (Reason: pain) Patient Comments: 1 TABLET BY MOUTH EVERY 6 HOURS NEEDED Excedrin Extra Strength 250-250-65 mg tablet 1 tab PO Q4H PRN (Reason: pain) Prebiotic Fiber 2 gram tablet,chewable 3 g PO BID amlodipine 5 mg tablet 5 mg PO DAILY glipizide 5 mg tablet 5 mg PO BID ciprofloxacin HCl [Cipro] 500 mg tablet 500 mg PO BID Qty: 10 0RF tamsulosin [Flomax] 0.4 mg capsule 0.4 mg PO DAILY Qty: 20 0RF phenazopyridine [Pyridium] 100 mg tablet 100 mg PO TID Qty: 20 0RF tramadol 50 mg tablet 50 mg PO TID PRN (Reason: pain) Qty: 20 0RF Primary Care Provider: Shant Rojas Referrals: Shant Rojas DO [Primary Care Provider] - 1 Week if not improving Activity Restrictions/Additional Instructions: Use individual reduction of medications and recording as we discussed. Disposition Disposition: Home, Self Care
[2023-01-02 14:15] LABS: White Blood Cells 5-10 SEEN /hpf (0-5)
[2023-01-02 14:22] LABS: ALB/GLOB Ratio 0.7 RATIO (0.9-2.4); AST(SGOT) 10 U/L (15-37); Alanine Aminotransfer ALT/SGPT 22 U/L (16-61); Albumin, Serum 2.9 g/dL (3.2-5.0); Alkaline Phosphatase 61 U/L (45-117); Anion Gap 9 (5-15); BUN 16 mg/dL (7-18); BUN/Creat Ratio 15.1 RATIO (10-20); Calcium,Total 8.9 mg/dL (8.5-10.1); Chloride 100 mmol/L (98-107); Creatinine, Serum 1.06 mg/dL (0.70-1.30); EST Glomerular Filtration Rate 73 mL/min (>60); Est Glom Filt Rate - Afr Amer 88 mL/min (>60); Estimated Creatinine Clearance 56.84 ml/min; Globulin 4.2 g/dL (2.2-4.2); Glucose 258 mg/dL (74-106); Potassium 3.7 mmol/L (3.5-5.1); Protein, Total 7.1 g/dL (6.4-8.2); Sodium Level 134 mmol/L (136-145)
[2023-01-02 16:42] VITALS: BP 142/66; PULSE 74; O2SAT 95
== END 2023-01-02 16:55 | disposition home or self-care (01) ==
PROVIDERS: Emergency Provider Emergency Medicine; PCP Family Medicine; Visit Provider Emergency Medicine
DX: R53.1 Weakness (principal); E11.9 Type 2 diabetes mellitus without complications; E78.5 Hyperlipidemia, unspecified; I10 Essential (primary) hypertension; N40.0 Benign prostatic hyperplasia without lower urinary tract symptoms; Z79.899 Other long term (current) drug therapy; Z79.84 Long term (current) use of oral hypoglycemic drugs; Z79.82 Long term (current) use of aspirin
CPT/HCPCS: 70450; 80053; 81001; 85025; 87077; 87086; 87088; 87186; 93005; 96360; 96361; 99284; J7040; A4216

== ENCOUNTER → 2023-06-23 | Outpatient (CLI) | payer MEDICARE, OTHER, SELFPAY ==
--- NOTE | 2023-06-23 14:40 | CT_ITS ---
STUDY: CT ABDOMEN AND PELVIS WITHOUT CONTRAST REASON FOR EXAM: Male, 72 years old. Left-sided abdominal pain. RADIATION DOSAGE (If Supplied By Facility): CTDIvol = ( 15.58 ) mGy, DLP = ( 790.09 ) mGycm TECHNIQUE: Transaxial images were obtained from the dome of the diaphragm to the symphysis pubis without oral contrast, and without intravenous contrast. Sagittal and coronal images were reconstructed. Individualized dose optimization techniques were used for this CT. COMPARISON: Comparison is made with prior study dated December 12, 2022. FINDINGS: The visualized lung bases are unremarkable. Coronary artery calcification. Normal liver. Normal gallbladder and extrahepatic biliary system. Normal spleen. Normal pancreas. Normal bilateral adrenal glands. Nonobstructive right intrarenal calculi. The largest calculus measures 6 mm and is in the lower pole. 2 mm nonobstructive calculus in the posterior mid pole calyx of the left kidney. There is a 1.1 cm nonobstructive plaque is in the lower pole calyx of the left kidney. Normal visualized stomach. Normal small intestine. There are multiple colonic diverticula consistent with diverticulosis. The appendix is visualized and appears normal. There is diffuse atherosclerotic calcification of the abdominal aorta, without a demonstrated aneurysm. Normal inferior vena cava. Normal retroperitoneum. Normal urinary bladder. There is enlargement of the prostate gland. The prostate measures 4.7 cm x 5.5 cm. Calcifications are seen within it. Small bilateral inguinal hernias containing fat. Small amount of air bubbles are seen within the subcutaneous tissues overlying the L3-L4 L4-L5 and L5-S1 levels. This may represent recent injections. There are diffuse degenerative changes of the visualized lumbar spine. CT/Abdomen/Pelvis without Cont IMPRESSION: Nonobstructive bilateral intrarenal calculi. Sigmoid diverticulosis. Prostatic enlargement with indentation at the bladder base. Electronically Signed: Rogelio Sprague MD at 15:26 EDT ,
== END | disposition home or self-care (01) ==
PROVIDERS: PCP Family Medicine; Referring Provider Urology; Visit Provider Urology
DX: N20.0 Calculus of kidney (principal)
CPT/HCPCS: 74176

== ENCOUNTER → 2023-08-07 | Outpatient (CLI) | payer MEDICARE, OTHER, SELFPAY ==
[2023-08-07 16:26] LABS: PSA,Total - Annual Screen 2.51 ng/mL (0.00-4.00)
== END | disposition home or self-care (01) ==
LOC: LAB 14:25
PROVIDERS: PCP Family Medicine; Referring Provider Nurse Practitioner; Visit Provider Nurse Practitioner
DX: Z12.5 Encounter for screening for malignant neoplasm of prostate (principal)
CPT/HCPCS: 36415; 84153; G0103

== ENCOUNTER → 2023-09-01 | Outpatient (CLI) | payer MEDICARE, OTHER, SELFPAY ==
[2023-09-01 12:43] LABS: Color, Urine Yellow (Yellow); Glucose, Dipstick 250 mg/dl (Normal); Ketone-Dipstick 5 mg/dl (Negative); Leukocyte Esterase-Dipstick 25 /ul (Negative); Nitrite-Dipstick Negative (Negative); Occult Blood-Urine 25 /ul (Negative); Protein-Dipstick 500 mg/dl (Negative); Urine Bilirubin Dipstick Negative (Negative); Urine Clarity Sl. Cloudy (Clear); Urine Urobilinogen Normal (Normal)
[2023-09-01 12:56] LABS: ALB/GLOB Ratio 1.2 RATIO (0.9-2.4); AST(SGOT) 23 U/L (15-37); Alanine Aminotransfer ALT/SGPT 30 U/L (16-61); Albumin, Serum 3.6 g/dL (3.2-5.0); Alkaline Phosphatase 46 U/L (45-117); Anion Gap 9 (5-15); BUN 24 mg/dL (7-18); BUN/Creat Ratio 24.6 RATIO (10-20); Chloride 106 mmol/L (98-107); Creatinine, Serum 0.98 mg/dL (0.70-1.30); EST Glomerular Filtration Rate 80 mL/min (>60); Est Glom Filt Rate - Afr Amer 97 mL/min (>60); Globulin 3.1 g/dL (2.2-4.2); Glucose 257 mg/dL (74-106); Potassium 3.6 mmol/L (3.5-5.1); Protein, Total 6.7 g/dL (6.4-8.2); Sodium Level 141 mmol/L (136-145); Thyroid Stim Hormone (TSH) 4.37 uIU/mL (0.358-3.74)
[2023-09-01 13:20] LABS: Microalbumin:Creatinine Ratio 2814.6 mg/g CRE (<30 mg/g CRE)
== END | disposition home or self-care (01) ==
LOC: BFHLAB 10:43
PROVIDERS: PCP Family Medicine; Referring Provider Family Medicine; Visit Provider Family Medicine
DX: R60.9 Edema, unspecified (principal); E11.21 Type 2 diabetes mellitus with diabetic nephropathy; I10 Essential (primary) hypertension
CPT/HCPCS: 36415; 80053; 81002; 82043; 82570; 84443

== ENCOUNTER → 2024-01-16 | Outpatient (CLI) | payer MEDICARE, OTHER, SELFPAY ==
--- NOTE | 2024-01-16 16:52 | CT_ITS ---
STUDY: CT ABDOMEN AND PELVIS WITH CONTRAST REASON FOR EXAM: Male, 73 years old. LLQ ABDOMINAL PAIN RADIATION DOSAGE (If Supplied By Facility): CTDIvol = ( 18.98 ) mGy, DLP = ( 1141.54 ) mGycm TECHNIQUE: Transaxial images were obtained from the dome of the diaphragm to the symphysis pubis without oral contrast. IV 100mL Isovue-[id number] was administered. Sagittal and coronal images were reconstructed. Individualized dose optimization techniques were used for this CT. COMPARISON: June 23, 2023. FINDINGS: The visualized lung bases are unremarkable. The visualized portions of the heart are within normal limits. Normal liver. Normal gallbladder and extrahepatic biliary system. Normal spleen. Normal pancreas. Normal bilateral adrenal glands. 2 mm calculus in the right kidney. Up to 5 mm calculi in the left kidney. Mild left hydronephrosis with a mid left ureteral stone noted measuring approximately 7 mm. Normal visualized stomach. Normal small intestine. Fecal retention in the colon. Colonic diverticulosis. The appendix is visualized and appears normal. Calcified abdominal aorta. Normal inferior vena cava. Normal retroperitoneum. Normal urinary bladder. Fatty density in left inguinal canal. Normal abdominal wall. Degenerative vertebral changes. CT/Abdomen/Pelvis WITH Contrast IMPRESSION: Bilateral renal calculi. Mild left hydronephrosis with an obstructive left mid ureteral stone. Colonic diverticulosis. Electronically Signed: Fred Diaz DO at 21:26 EDT ,
[2024-01-16 17:30] LABS: CREATININE FINGERSTICK < 1.0 mg/dL (0.70-1.30); EGFR FINGERSTICK > 60.0000 mL/min (>60)
== END | disposition home or self-care (01) ==
PROVIDERS: PCP Family Medicine; Referring Provider Family Medicine; Visit Provider Family Medicine
DX: R10.32 Left lower quadrant pain (principal)
CPT/HCPCS: 74177; Q9967; A4216

== ENCOUNTER → 2024-01-23 | Outpatient (CLI) | payer MEDICARE, OTHER, SELFPAY ==
[2024-01-23 17:07] LABS: Hematocrit 42.8 % (40-54); Hemoglobin 14.3 g/dL (13.0-16.5); Mean Corp Hgb Conc 33.4 g/dL (32-36); Mean Corpuscular Hgb 31.4 pg (27.0-32.0); Mean Corpuscular Volume 94.1 fL (80-94); Mean Platelet Vol. 10.7 fl (6.2-12.0); Platelet Count 262 K/mm3 (150-450); RBC Distribution Width SD 45.1 fl (35.1-43.9); Red Blood Count 4.55 M/mm3 (4.6-6.2); White Blood Count 8.5 K/mm3 (4.4-11.0)
[2024-01-23 17:30] LABS: Anion Gap 3 (5-15); BUN 23 mg/dL (7-18); BUN/Creat Ratio 16.5 RATIO (10-20); Calcium,Total 9.9 mg/dL (8.5-10.1); Chloride 110 mmol/L (98-107); Creatinine, Serum 1.39 mg/dL (0.70-1.30); EST Glomerular Filtration Rate 53 mL/min (>60); Est Glom Filt Rate - Afr Amer 64 mL/min (>60); Glucose 110 mg/dL (74-106); Potassium 4.9 mmol/L (3.5-5.1); Sodium Level 140 mmol/L (136-145)
== END | disposition home or self-care (01) ==
LOC: LAB 15:56
PROVIDERS: PCP Family Medicine; Referring Provider Urology; Visit Provider Urology
DX: Z01.812 Encounter for preprocedural laboratory examination (principal); I10 Essential (primary) hypertension
CPT/HCPCS: 36415; 80048; 85027

== ENCOUNTER 2024-07-10 10:42 | Observation (INO) | payer MEDICARE, OTHER, SELFPAY ==
--- NOTE | 2024-06-27 12:45 | EKG12_ITS ---
Test Reason : PREOP Blood Pressure : */* mmHG Vent. Rate : 76 BPM Atrial Rate : 76 BPM P-R Int : 168 ms QRS Dur : 86 ms QT Int : 400 ms P-R-T Axes : * -38 83 degrees QTcB Int : 450 ms Normal sinus rhythm Left axis deviation Nonspecific ST and T wave abnormality Abnormal ECG Confirmed by PADMINI PATINO, CARLYN ([id number]), continuity editor IFTIKHAR HOU ([id number]) on 06/28/2024 5:48:38 AM Referred By: Alexandre Yip Confirmed By: CARLYN WASHINGTON MD
[2024-06-27 13:32] LABS: Absolute Lymphocyte Count 2.24 X10^3/uL (0.83-4.51); Absolute Neutrophil Count 4.2 X10^3/uL (2.0-7.7); Basophil# 0.08 X10^3/uL; Eosinophil# 0.39 X10^3/uL; Eosinophils% 5.1 % (0-5); Hematocrit 41.2 % (40-54); Hemoglobin 14.3 g/dL (13.0-16.5); Lymphocyte # 2.24 X10^3/ul (0.83-4.51); Lymphocyte % 29.2 % (19-41); Mean Corp Hgb Conc 34.7 g/dL (32-36); Mean Corpuscular Hgb 31.7 pg (27.0-32.0); Mean Corpuscular Volume 91.4 fL (80-94); Mean Platelet Vol. 10.6 fl (6.2-12.0); Monocyte% 9.1 % (0-10); NRBC Flagged by Analyzer 0 % (0-5); Neutrophil # 4.24 X10^3/uL (2.7-7.7); Neutrophil % 55.2 % (47-70); Platelet Count 253 K/mm3 (150-450); RBC Distribution Width CV 12.2 % (11.6-14.6); RBC Distribution Width SD 40.7 fl (35.1-43.9); Red Blood Count 4.51 M/mm3 (4.6-6.2); White Blood Count 7.7 K/mm3 (4.4-11.0)
[2024-06-27 14:10] LABS: Magnesium 2.8 mg/dL (1.5-2.2)
[2024-06-27 14:16] LABS: Hepatitis B Surface Antibody Nonreactive; Hepatitis C Antibody Nonreactive (Nonreactive)
[2024-06-27 14:34] LABS: Anion Gap 16 (5-15); BUN 25 mg/dL (4-19); Calcium,Total 9.6 mg/dL (7.6-11.0); Carbon Dioxide 19.5 mmol/L (21.0-32.0); Chloride 104 mmol/L (98-108); EST Glomerular Filtration Rate 71 (>60); Glucose 243 mg/dL (70-99); HIV Nonreactive (Nonreactive); Potassium 4.6 mmol/L (3.3-5.1); Sodium Level 139 mmol/L (133-145)
--- NOTE | 2024-06-27 16:49 | PAT.ANESEVAL ---
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 When Was Last Pacemaker Check QUESTION #4 FULL TEXT: You/Your Family Experience fever (hyperthermia) with Anesthesia Last Oral Intake Last Oral intake: Last Oral Intake NPO since Meds taken in AM with sips of water? 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 Female No 06/26/24 09:09 HX of Motion Sickness No 06/26/24 09:09 HX of N/V After Surgery No 06/26/24 09:09 Non-Smoker No 06/26/24 09:09 Duration of Surgery greater Yes 06/26/24 09:09 than 60 minutes Number of Risk Factors 1 06/26/24 09:09 PONV Score Low Risk 06/26/24 09:09 Height & Weight Height & Weight: Anesthesia: Height & Weight Height 5 ft 6 in 04/09/24 12:56 Respiratory Assessment Respiratory Assessment - degreasing wheel operator: Respiratory Tract Infection Hx - degreasing wheel operator Hx Respiratory Tract Infection No 06/26/24 09:09 STOP Sleep Apnea STOP Sleep Apnea - degreasing wheel operator: STOP Sleep Apnea - degreasing wheel operator Hx Hypertension Yes: CONTROLLED WITH MED 06/26/24 09:09 Hx Sleep Apnea No 06/26/24 09:09 CPAP No 03/12/24 14:13 BIPAP Do you snore loudly (louder Yes 06/26/24 09:09 than talking or can be heard Do you often feel tired/ Yes 06/26/24 09:09 fatigued/ sleepy during daytime? Has anyone observed you stop No 06/26/24 09:09 breathing during sleep? STOP Results Positive 06/26/24 09:09 QUESTION #5 FULL TEXT : Do you snore loudly (louder than talking or can be heard through closed doors)? 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 Specify any problems Hx of Preganancy in last 3 N/A 06/26/24 09:09 Months Nurse Filling Out Transfusion DSCHRIBER 06/26/24 09:09 & Questions: Date: 06/26/24 06/26/24 09:09 Time: 09:11 06/26/24 09:09 Patient unable to answer at this time (ie. confused, unrespo /Reproduction History /Reproductive History - degreasing wheel operator: /Reproductive Hx- degreasing wheel operator Hx Now No 06/26/24 09:09 Gestational Age (in weeks): EDC: Hx Hx Para Hx Section SAB No 06/26/24 09:09 PFSH Medical History (Updated 06/26/24 @ 09:24 by Karoline Redmond) History of steroid therapy Cluster headache Syncope History of stress test Cardiology follow-up encounter Wears hearing aid Wears glasses Cancer Rash Arthritis Back pain Dietary restriction Patient uses snuff History of pain when walking History of edema BPH (benign prostatic hyperplasia) Benign essential tremor Essential hypertension Hyperlipidemia Type 2 diabetes mellitus without complication Constipation Home Medications ?Medication ?Instructions ?Recorded ?Last Taken ?Type simvastatin 10 mg tablet 10 mg PO QHS 07/29/16 12/08/22 History cyclobenzaprine 10 mg tablet 10 mg PO TID PRN muscle spasm 11/01/18 12/08/22 History omega-3 fatty acids 1,000 mg 1,000 mg PO DAILY 11/01/18 Unknown History capsule (Fish Oil Concentrate) propranolol 120 mg capsule,24 120 mg PO DAILY 11/01/18 12/09/22 History hr,extended release multivitamin 1 ea PO DAILY 05/20/19 Unknown History naphazoline 0.68534 %-pheniramine 2 drp OP PRN PRN Allergies 05/20/19 12/08/22 History 0.315 % eye drops diphenhydramine HCl 25 mg capsule 25 mg PO BID PRN Allergies 05/21/19 Unknown History docusate sodium 100 mg capsule 100 mg PO QHS PRN Constipation 05/21/19 12/08/22 History glipizide 5 mg tablet 7.5 mg PO QHS 12/02/22 12/08/22 History oxycodone-acetaminophen 7.5 mg-325 1 tab PO Q6H PRN pain 12/02/22 Unknown History mg tablet finasteride 5 mg tablet 5 mg PO QDAY 04/09/24 Unknown History hydralazine 10 mg tablet 10 mg PO TID 04/09/24 Unknown History coenzyme Q10 100 mg capsule (Co 200 mg PO DAILY 06/26/24 Unknown History Q-10) glipizide 5 mg tablet 5 mg PO DAILY 06/26/24 Unknown History losartan 100 mg tablet 100 mg PO DAILY 06/26/24 Unknown History metformin 1,000 mg tablet 1,000 mg PO BID 06/26/24 Unknown History vitamin B12 1,000 mcg-folic acid 1 tab sublingual DAILY 06/26/24 Unknown History 400 mcg sublingual tablet Allergy/AdvReac Type Severity Reaction Status Date / Time amoxicillin Allergy Hives Verified 06/26/24 08:58 Penicillins Allergy Hives Verified 06/26/24 08:58 tramadol AdvReac Severe Other Verified 06/26/24 08:58 Family History Father Colon cancer CVA (cerebral vascular accident) Mother Cancer Son Hypertension Surgical History (Updated 06/26/24 @ 09:24 by Karoline Redmond) Hx of right cataract extraction Hx of left cataract extraction Hx of colonoscopy History of excision of lesion Hx of transurethral resection of prostate History of cystoscopy History of lithotripsy History of incision and drainage History of fusion of cervical spine History of tonsillectomy Social History Smoking Status: Current every day smoker tobacco type: smokeless tobacco alcohol intake: current substance use type: does not use caffeine: Yes Type: carbonated beverages Number of servings: 2 Audit: Pertinent Findings Pertinent Findings EKG Perinent findings: January 02, 2023. Normal sinus rhythm. ST and T wave abnormality consider lateral ischemia. Similar ischemic wave pattern seen back in May 24, 2019. (See cardiology consult at that time.) Consult pertinent findings: May 22, 2019. Dr. Garcia. 1. Preop cardiovascular exam-EKG showing nonspecific ST-T changes. Patient asymptomatic from cardiac standpoint. He has good functional capacity. Low risk for perioperative cardiac complications. 2. Hypertension controlled. Recommendation Anesthesia Recommendation Anesthesia recommendation: OPTIMIZED for anesthesia
[2024-06-27 20:34] LABS: Hemoglobin A1c 7.5 % (<=5.6)
[2024-06-29 05:07] LABS: Hepatitis A AB, Total Negative (Negative)
[2024-07-10] VITALS (22 sets, daily range): BP systolic 120–170; BP diastolic 44–102; PULSE 73–85; RESP 12–18; TEMP 36.1–37.1; O2SAT 92–100; BMI 35.6; BMI 34.5
[2024-07-10] MEDS: Magnesium 1 GM over 15 mins IV (06:32)
[2024-07-10] MEDS: 0.9% Normal Saline (1000mL) 1,000 ML 15 ML IV (06:32)
[2024-07-10] MEDS: Acetaminophen 500 MG Tablet 1000 MG PO (06:32)
[2024-07-10] MEDS: Insulin Lispro 100 UNIT/ML INSULN.PEN SC ×2 (06:33→11:13)
--- NOTE | 2024-07-10 06:46 | PCM.PRE.AN2 ---
ASA Classification* ASA Classification ASA Classification: 2 Assessment & Plan Anesthesia* Anesthesia Assessment Anesthesia Assessment: Discussed sedation and/or anesthesia options, risks, benefits, and alternatives with patient/parents/legal guardian/POA. Questions invited. The patient/parents/legal guardian/POA seems to understand and agrees to proceed with anesthesia plan. Reviewed the physical assessment, medical history, allergy history and patient home medications list prior to surgery/procedure/anesthetic and documented any changes. Performed airway and anesthesia risk assessments. Anesthesia Type Anesthesia Type: General Anesthesia Focused Assessment* Temperature: 97.4 F Pulse Rate: 73 Blood Pressure: 124/98 Respiratory Rate: 17 Pulse Ox: 100 Airway Assessment Mouth opens: >3 cm Mallampati Score: II Focused Labs Anesthesia Preop lab: CBC WBC 7.7 K/mm3 (4.4-11.0) 06/27/24 13:05 06/27/24 RBC 4.51 M/mm3 (4.6-6.2) L 06/27/24 13:05 06/27/24 Hgb 14.3 g/dL (13.0-16.5) 06/27/24 13:05 06/27/24 Hct 41.2 % (40-54) 06/27/24 13:05 06/27/24 Plt Count 253 K/mm3 (150-450) 06/27/24 13:05 06/27/24 CHEMISTRY Potassium 4.6 mmol/L (3.3-5.1) 06/27/24 13:05 06/27/24 Sodium 139 mmol/L (133-145) 06/27/24 13:05 06/27/24 Magnesium 2.8 mg/dL (1.5-2.2) H 06/27/24 13:05 06/27/24 BUN 25 mg/dL (4-19) H 06/27/24 13:05 06/27/24 Creatinine 1.10 mg/dL (0.70-1.20) 06/27/24 13:05 06/27/24 Glucose 243 mg/dL (70-99) H 06/27/24 13:05 06/27/24 POC Glucose 117 mg/dL (74-106) H 12/09/22 06:22 12/09/22 TSH 4.37 uIU/mL (0.358-3.74) H 09/01/23 10:44 09/01/23 COAG Pre-Assessment Diagnosis/Proposed Procedure Planned Operative Procedure(s): ANTERIOR CERVICAL DISC FUSION C4-5 C5-6 Anesthesia History 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 When Was Last Pacemaker Check QUESTION #4 FULL TEXT: You/Your Family Experience fever (hyperthermia) with Anesthesia Last Oral Intake Last Oral intake: Last Oral Intake NPO since 04:30 07/10/24 06:26 Meds taken in AM with sips of Yes 07/10/24 06:26 water? 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 Female No 06/26/24 09:09 HX of Motion Sickness No 06/26/24 09:09 HX of N/V After Surgery No 06/26/24 09:09 Non-Smoker No 06/26/24 09:09 Duration of Surgery greater Yes 06/26/24 09:09 than 60 minutes Number of Risk Factors 1 06/26/24 09:09 PONV Score Low Risk 06/26/24 09:09 Height & Weight Height & Weight: Anesthesia: Height & Weight Height 5 ft 6 in 07/10/24 06:26 Weight: 100 kg 07/10/24 06:26 Body Mass Index (BMI) 35.6 07/10/24 06:26 Respiratory Assessment Respiratory Assessment - injection molding operator: Respiratory Tract Infection Hx - injection molding operator Hx Respiratory Tract Infection No 06/26/24 09:09 STOP Sleep Apnea STOP Sleep Apnea - injection molding operator: STOP Sleep Apnea - injection molding operator Hx Hypertension Yes: CONTROLLED WITH MED 06/26/24 09:09 Hx Sleep Apnea No 06/26/24 09:09 CPAP No 03/12/24 14:13 BIPAP Do you snore loudly (louder Yes 06/26/24 09:09 than talking or can be heard Do you often feel tired/ Yes 06/26/24 09:09 fatigued/ sleepy during daytime? Has anyone observed you stop No 06/26/24 09:09 breathing during sleep? STOP Results Positive 06/26/24 09:09 QUESTION #5 FULL TEXT : Do you snore loudly (louder than talking or can be heard through closed doors)? 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 Specify any problems Hx of Preganancy in last 3 N/A 06/26/24 09:09 Months Nurse Filling Out Transfusion DSCHRIBER 06/26/24 09:09 & Questions: Date: 06/26/24 06/26/24 09:09 Time: 09:11 06/26/24 09:09 Patient unable to answer at this time (ie. confused, unrespo /Reproduction History /Reproductive History - injection molding operator: /Reproductive Hx- injection molding operator Hx Now No 06/26/24 09:09 Gestational Age (in weeks): EDC: Hx Hx Para Hx Section SAB No 06/26/24 09:09 Active Medications Active Medications: Current Medications Generic Name Dose Route Start Last Admin Trade Name Freq PRN Reason Stop Dose Admin Acetaminophen 1,000 mg 07/10/24 07:30 07/10/24 06:32 Acetaminophen 500 Mg Tablet PO 07/10/24 07:31 1,000 mg X1 ONE Administration Dexamethasone Sodium Phosphate 8 mg 07/10/24 07:30 Dexamethasone 10 Mg/Ml Vial IV 07/10/24 07:31 X1 ONE Dexamethasone Sodium Phosphate 4 mg 07/10/24 07:30 Dexamethasone 4 Mg/Ml Vial IV 07/10/24 07:31 X1 ONE Clindamycin Phosphate 900 mg in 50 mls @ 75 mls/hr 07/10/24 07:30 Cleocin IV 07/10/24 08:09 PREOP ONE Tranexamic Acid 1,000 mg/ 110 mls @ 440 mls/hr 07/10/24 07:30 Sodium Chloride IV 07/10/24 07:44 X1 ONE Tranexamic Acid 1,000 mg/ 110 mls @ 440 mls/hr 07/10/24 07:30 Sodium Chloride IV 07/10/24 07:44 X1 ONE Magnesium Sulfate 1 gm/ 102 mls @ 408 mls/hr 07/10/24 07:30 07/10/24 06:32 Dextrose IV 07/10/24 07:44 408 mls/hr X1 ONE Administration Sodium Chloride 1,000 mls @ 15 mls/hr 07/10/24 05:55 07/10/24 06:32 IV 15 mls/hr .Q48H PAOLO Administration Insulin Human Lispro 1 - 6 unit 07/10/24 07:30 07/10/24 06:33 Insulin Lispro 100 Unit/Ml Insuln.Pen SC 07/10/24 18:00 3 units Q4H PRN PRN Administration BG>/= 180, SEE PROTOCOL Protocol PFSH Medical History History of steroid therapy Cluster headache Syncope History of stress test Cardiology follow-up encounter Wears hearing aid Wears glasses Cancer Rash Arthritis Back pain Dietary restriction Patient uses snuff History of pain when walking History of edema BPH (benign prostatic hyperplasia) Benign essential tremor Essential hypertension Hyperlipidemia Type 2 diabetes mellitus without complication Constipation Home Medications ?Medication ?Instructions ?Recorded ?Last Taken ?Type simvastatin 10 mg tablet 10 mg PO QHS 07/29/16 07/09/24 History cyclobenzaprine 10 mg tablet 10 mg PO TID PRN muscle spasm 11/01/18 12/08/22 History omega-3 fatty acids 1,000 mg 1,000 mg PO DAILY 11/01/18 07/07/24 History capsule (Fish Oil Concentrate) propranolol 120 mg capsule,24 120 mg PO DAILY 11/01/18 07/10/24 History hr,extended release multivitamin 1 ea PO DAILY 05/20/19 07/09/24 History naphazoline 0.63510 %-pheniramine 2 drp OP PRN PRN Allergies 05/20/19 12/08/22 History 0.315 % eye drops diphenhydramine HCl 25 mg capsule 25 mg PO BID PRN Allergies 05/21/19 Unknown History docusate sodium 100 mg capsule 100 mg PO QHS PRN Constipation 05/21/19 12/08/22 History glipizide 5 mg tablet 7.5 mg PO QHS 12/02/22 07/09/24 History oxycodone-acetaminophen 7.5 mg-325 1 tab PO Q6H PRN pain 12/02/22 Unknown History mg tablet finasteride 5 mg tablet 5 mg PO QDAY 04/09/24 07/10/24 History hydralazine 10 mg tablet 10 mg PO BID 04/09/24 07/10/24 History coenzyme Q10 100 mg capsule (Co 200 mg PO DAILY 06/26/24 07/09/24 History Q-10) glipizide 5 mg tablet 5 mg PO DAILY 06/26/24 07/09/24 History losartan 100 mg tablet 100 mg PO DAILY 06/26/24 07/10/24 History metformin 1,000 mg tablet 1,000 mg PO BID 06/26/24 07/09/24 History vitamin B12 1,000 mcg-folic acid 1 tab sublingual DAILY 06/26/24 07/09/24 History 400 mcg sublingual tablet Allergy/AdvReac Type Severity Reaction Status Date / Time amoxicillin Allergy Hives Verified 07/10/24 06:24 Penicillins Allergy Hives Verified 07/10/24 06:24 tramadol AdvReac Severe Other Verified 07/10/24 06:24 Family History Father Colon cancer CVA (cerebral vascular accident) Mother Cancer Son Hypertension Surgical History Hx of right cataract extraction Hx of left cataract extraction Hx of colonoscopy History of excision of lesion Hx of transurethral resection of prostate History of cystoscopy History of lithotripsy History of incision and drainage History of fusion of cervical spine History of tonsillectomy Social History Smoking Status: Never smoker alcohol intake: current substance use type: does not use caffeine: Yes Type: carbonated beverages Number of servings: 2 Review of Systems (Anesthesia) ROS Narrative System reviewed and no additional complaints, except as documented.
--- NOTE | 2024-07-10 07:23 | HP.PCM_ITS ---
History and Physical Date of Admission: 07/10/24 MR#: [id number] Acct: [id number] Name: TERESA RAINEY Rep #: [id number] : 1950 Provider: Dr. Alexandre Yip MD Age/Sex: 73/M Location: [facility] Status: Signed Intake Vital Signs 04/09/2412:56 07/04/2512:32 Height 5 ft 6 in 5 ft 6 in Weight: 218 lb 3 oz BMI 35.2 Intake Visit Reasons: cervical spine Chief Complaint: cervical spine pre-op dos 07/10/2024 Accompanied by: Is patient in pain?: Yes Pain scale (1-10): 2 Allergies amoxicillin Allergy (Verified 07/04/24 13:33) HivesPenicillins Allergy (Verified 07/04/24 13:33) Hivestramadol Adverse Reaction (Severe, Verified 07/04/24 13:33) Other Medications ?Medication ?Instructions ?Recorded ?Confirmed ?Type simvastatin 10 mg tablet 10 mg PO QHS 07/29/16 07/04/24 History cyclobenzaprine 10 mg tablet 10 mg PO TID PRN muscle spasm 11/01/18 0 07/04/24 History omega-3 fatty acids 1,000 mg 1,000 mg PO DAILY 11/01/18 07/04/24 Hist ory capsule (Fish Oil Concentrate) propranolol 120 mg capsule,24 120 mg PO DAILY 11/01/18 07/04/24 Histor y hr,extended release multivitamin 1 ea PO DAILY 05/20/19 07/04/24 History naphazoline 0.42525 %-pheniramine 2 drp OP PRN PRN Allergies 05/20/1906/09 History 0.315 % eye drops diphenhydramine HCl 25 mg capsule 25 mg PO BID PRN Allergies 05/21/1906/09 History docusate sodium 100 mg capsule 100 mg PO QHS PRN Constipation 05/21/19 07/04/24 History glipizide 5 mg tablet 7.5 mg PO QHS 12/02/22 07/04/24 History oxycodone-acetaminophen 7.5 mg-325 1 tab PO Q6H PRN pain 12/02/22 07/04/24 History mg tablet finasteride 5 mg tablet 5 mg PO QDAY 04/09/24 07/04/24 History hydralazine 10 mg tablet 10 mg PO TID 04/09/24 07/04/24 History coenzyme Q10 100 mg capsule (Co 200 mg PO DAILY 06/26/24 07/04/24 Histor y Q-10) glipizide 5 mg tablet 5 mg PO DAILY 06/26/24 07/04/24 History losartan 100 mg tablet 100 mg PO DAILY 06/26/24 07/04/24 Histor y metformin 1,000 mg tablet 1,000 mg PO BID 06/26/24 07/04/24 Histor y vitamin B12 1,000 mcg-folic acid 1 tab sublingual DAILY 06/26/24 07/04/24 History 400 mcg sublingual tablet Have you fallen in the past year?: No PFSH Medical History History of steroid therapy Cluster headache Syncope History of stress test Cardiology follow-up encounter Wears hearing aid Wears glasses Cancer Rash Arthritis Back pain Dietary restriction Patient uses snuff History of pain when walking History of edema BPH (benign prostatic hyperplasia) Benign essential tremor Essential hypertension Hyperlipidemia Type 2 diabetes mellitus without complication Constipation Surgical History Hx of right cataract extraction Hx of left cataract extraction Hx of colonoscopy History of excision of lesion Hx of transurethral resection of prostate History of cystoscopy History of lithotripsy History of incision and drainage History of fusion of cervical spine History of tonsillectomy Family History Father Colon cancer CVA (cerebral vascular accident)Mother CancerSon Hypertension Social History Smoking Status: Never smoker alcohol intake: current substance use type: does not use caffeine: Yes Type: carbonated beverages Number of servings: 2 HPI cervical spine Details: This documentation accurately reflects the service provided and the decisions made by me, Dr. Alexandre Yip MD 07/04/24 2685. Part of today?s visit was documented by [employer], acting as scribe. TERESA RAINEY is a 73 year old M here today for pre-op for anterior cervical disc fusion C4-5 and C5-6 DOS 07/10/2024. Patient rates his pain a 2/10 today. He did have a cervical spine injection with Dr. Hines on 05/14/2024. Patient states the pain just comes and goes and since the last injection the pain has decreased. He states he is unable to sleep on the left side anymore and if he does he gets a k ink in his cervical spine. 05/17/24: TERESA RAINEY is a 73 year old M here today for cervical spine MRI review. He would like to discuss results and next steps. He did receive a steroid injection in his cervical spine on Monday by Dr. Hines. 04/09/24: TERESA RAINEY is a 73 year old M here today for lumbar spine pain. Pt. presents using a cane for ambulation. He states his low back pain is at the c enter and describes it as a constant, tired soreness and rates it 3/10. had been experiencing sciatic nerve pain in his left quad for about 3 months. He had a lumbar spine injection on 03-19-24 which is still effective. He was referred by Dr. Hines who has been giving him steroid injections in his cervical, thoracic spine and lumbar spine. He states the other injections have been effective temporarily. He also c/o thoracic pain on the right mid back. Says that he gets abdominal pain as well but has not discussed this with his family doctor. He describes it as a constant sharp pain and rates that 3/10 today. He is taking Tylenol and Ibuprofen as directed by Dr. Hines. He denies previous back injury, he reports a cervical fusion in 1989 d/t deterioration. He has done PT x 3 which was not helpful. No recent imaging. Says that he has an essential tremor that makes the handwriting difficult. History of diabetes with last a1c 6.7. Ortho Exam General General: Yes no acute distress Neurologic: Yes alert and Yes oriented x3 Spine SPINE TESTING CERVICAL THORACIC LUMBAR Musculoskeletal Strength 0=absent - 5=normal Details: Neurological exam of the upper and lower extremities shows 5x5 power. Normal sensations across all dermatomes. No hyperreflexia. No midline or paraspinal tenderness. Lima's mildly positive on right. Physical examination of the neck shows well healed incision. 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 Xrays show L4-5 anterolisthesis and disc height loss of L5-S1. L5-S1 is likely autofused or transitional anatomy. Also reviewed prior thoracic MRI from September 2022 which shows mild disc degeneration at multiple noncontiguous levels with anterior cord indentation without any cord signal changes. Recently done cervical MRI shows severe cord compression at C5-6, and moderate central stenosis with cord indentation at C4-5. X-rays of cervical spine shows C6-7 noninstrumented fusion with degenerative osteophytes throughout the cervical spine. Again explained imaging findings in detail. His lumbar spine shows evidence of spondylolisthesis which may cause him to have neurogenic claudication from stenosis. However his balance deficits make it difficult for him to walk long distances and he cannot really assess for claudication distance because of this. He also had does not have significant axial low back pain at this time. We will defer lumbar MRI for now. His upper back pain may be related to multilevel disc degeneration, but since there is no significant cord compression, I would have him continue nonsurgical treatment for the thoracic pain. His cervical spine shows severe disc degeneration at the adjacent levels 2 levels above his prior fusion. C4-6 shows severe cord compression. Patient has significant myelopathy with worsening balance issues. Discussed natural history of cervical myelopathy which is typically that of progression. Recommend surgical C4-6 ACDF in order to halt progression of myelopathy. All respites and alternatives were discussed. The risks include but are not limited to infection, bleeding, hematoma formation, need for further surgery, dysphagia, dysphonia, recurrent laryngeal nerve injury, persistent pain, persistent numbness and weakness, spinal cord injury, nerve root injury, DVT, pulm embolism, pneumonia, atelectasis, cardiopulmonary vent. Patient understands and agrees to proceed with surgery. Consent was signed.
--- NOTE | 2024-07-10 07:30 | RAD_ITS ---
PROCEDURE: Intraoperative fluoroscopic services for cervical fusion. 07/10/2024 REASON FOR EXAM: ANTERIOR FUSION C4-5 AND C5-6 TECHNIQUE: Intraoperative fluoroscopic services. 25.6 seconds of fluoroscopy. 10.92 mGy. 9 fluoroscopic images were obtained. FINDINGS: Intraoperative fluoroscopic services provided for fusion at the C4-C5 and C5-C6 levels with anterior plate and screw fixation. RAD/Cerv Spine 2 or 3 Views IMPRESSION: Intraoperative fluoroscopic services provided for fusion at the C4-C5 and C5-C6 levels with anterior plate and screw fixation device. Reading Location: [facility]
[2024-07-10] MEDS: Clindamycin 900 MG/50 ML BAG 75 MG IV ×2 (08:00→16:06)
[2024-07-10] MEDS: dexAMETHasone 10 MG/ML Vial 8 MG IV (08:06)
[2024-07-10] MEDS: TRANEXAMIC ACID 1,000 MG in 0.9% Normal Saline (100mL Bag) 100 ML 440 MG IV ×2 (08:10→10:20)
--- NOTE | 2024-07-10 10:44 | PCM.OPRPT ---
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, stenosis, radiculomyelopathy, prior C6-7 fusion, kyphosis Post-Operative Diagnosis: Same Surgery/Procedure Performed: C4-6 ACDF shipmaster: Yes Material Worker: Florina Metz Tasks completed by medical clerical assistant: Closing, Removing tissue, Implanting device, Hemostasis: Electrocautery and Retracting Type of Anesthesia: General RN Documented Start/Stop Times: Operation Date: 07/10/24 07:30 Case Time Into Pre-Op 07/10/24 05:50 Out of Pre-Op 07/10/24 07:26 Anesthesia Start 07/10/24 07:30 Into Room 07/10/24 07:30 Procedure Start 07/10/24 08:10 Procedure End 07/10/24 10:35 Procedure Start Time: 08:10 Procedure Stop Time: 10:35 Select all DRAINS/GRAFTS/IMPLANTS that apply: Drains Drain details: [place] , Graft Graft details: Structural allograft cortical cancellous strut, DBX and Implanted device Implanted device details: Medtronic [place] Elite plate instrumentation Estimated Blood Loss: 30 cc Specimen collected: No Description of surgery: Preoperative diagnosis: C4-6 disc degeneration with stenosis, radiculomyelopathy, prior C6-7 fusion, kyphosis Postoperative diagnosis: Same Name of procedure: C4-6 anterior cervical discectomy and fusion with plate instrumentation - Anterior cervical fusion C4-5, CPT code 26600 - Anterior plate instrumentation C4-6, CPT code 09884/59 - Anterior cervical fusion C5-6, CPT code 88195/51 -C4-5 structural allograft bone with DBX, CPT code 50012 -C5-6 structural allograft bone with DBX, CPT code 77451 Attending surgeon: Alexandre Yip M.D. Anesthesia: Gen. endotracheal Estimated blood loss: 30 mL Complications: None Instrumentation used: Medtronic [place] Elite plate, LASR corticocancellous block Indications: The patient is a pleasant 73-year-old gentleman who presented with neck pain with radiation into upper extremities, difficulty with dexterity and balance. MRI showed prior C6-7 noninstrumented fusion with adjacent segment degeneration with reversal of cervical lordosis with apex at C5-6, C4-6 disc degeneration with central and foraminal stenosis with cord indentation without cord signal changes. In order to halt the progression of myelopathy, the patient requested surgical treatment. All risks and benefits of the procedure were explained to the patient. The risks include but are not limited to infection, bleeding, injury to nerves and vessels, vertebral artery injury, spinal cord injury, paralysis, vocal cord paralysis, injury to esophagus, pseudoarthrosis, need for further procedures, adjacent segment degeneration. Procedure: The patient was identified in the preoperative suite using unique patient identifiers. Skin was marked consent was taken and all questions were answered. The patient was then brought back to the operative room and a timeout was performed. General endotracheal anesthesia was given. Intraoperative neuro monitoring leads were applied. The patient was carefully positioned supine on a regular OR table. A lateral view with a C-arm was done to identify the level and to define the incision. The anterior neck was then prepped and draped in the usual fashion. A final timeout was then performed. A transverse skin incision was taken to the left of midline. Subcutaneous tissue was then divided with Bovie. Platysma was identified and cut along the incision with scissors. The fascial interval between the sternocleidomastoid and the larynx was developed. Omohyoid was identified and retracted. The esophagus with the larynx was retracted medially to reach the prevertebral fascia. Marker x-ray was performed with bent spinal needle and disc space and levels were confirmed. Longus coli muscle was elevated on both sides at and above and below C4-6 discs. Self-retaining retractors were then placed. A long handle knife was then used to perform annulotomy at C4-5. Disc fragments were removed with the pituitary. [place] pins were placed in C4 and C5 for disc distraction. Curettes and bur was utilized to remove cartilage from the endplates. Discectomy was performed laterally up to the uncovertebral joints. Posterior osteophytes were thinned down with the bur and adequate decompression in the central and foraminal areas were performed and PLL was thinned out. Once the disc space was prepared, trials of various sizes were utilized. Thorough irrigation was given. 7 mm LASR cortical cancellous allograft bone large footprint was then fashioned in such a way that concavities were burred out inferiorly and superiorly and half cc of DBX (demineralized bone matrix) was squeezed into the cancellous portion. The graft was then inserted into the C4-5 disc space. The retractors were then repositioned and the procedure was repeated for C5-6 disc with complete discectomy. Extensive osteophytes were noticed anteriorly at C5-6 which needed to be drilled out to enter the disc space. Graft size was 6 mm at with large footprint at C5-6. The grafts were found to be in good apposition with good pullout strength. A 42 mm Medtronic [place] Elite plate was then fixed to C4-6 with 17 mm screws. A lateral x-ray was then taken to check the length of the screws. Both AP and lateral x-rays showed good positioning of plate and screws. The locking mechanism over the screw heads was then turned. Thorough irrigation was again given. Hemostasis was achieved. A [place] drain was then inserted. Closure was done with 3-0 Vicryl for the platysma and subcutaneous tissue layers and 4-0 Monocryl for the skin. Closure was done around the drain. Steri-Strips were applied and dressing was done with 4 x 4 gauze and Tegaderm. A cervical collar was then applied. The patient was then woken up from anesthesia extubated and taken to PACU in stable condition. From here, the patient will be transitioned to the floor. Intraoperative neuro monitoring was performed throughout this procedure. Motor evoked potentials were run periodically. All potentials remained at baseline throughout the procedure. I was present for the entire surgery and performed the surgery myself. Surgical Findings: See operative note Complications Complications: No
--- NOTE | 2024-07-10 10:58 | PCM.POST.ANE ---
Anesthesia: Postop Eval I Current Vital Signs Temperature: 98 F Pulse Rate: 75 Blood Pressure: 135/61 Respiratory Rate: 16 Pulse Ox: 97 Oxygen Delivery Method: Venturi Mask Oxygen Flow Rate (L/min): 4 Assessment Airway patent: Yes Spontaneous unlabored respirations: Yes Mental status: Asleep nausea: No Vomiting: No Anesthesia Complication: No Fluid Hydration Crystalloid volume administer (ml): 2,400 Total IV fluid infused: 2,400 Progress Note Anesthesia document: Postop Eval 1 completed: Yes
[2024-07-10 11:04] LABS: Bedside Glucose 266 mg/dL (74-106)
--- NOTE | 2024-07-10 11:29 | POSTOPAN2_ITS ---
Anesthesia Postop Eval I Sum Postop Eval Completion status Anesthesia document: Postop Eval 1 completed: Yes Anesthesia Postop Eval I Summary Anesthesia Postop Eval I Summary: Anesthesia Postop Eval I: Assessment Summary Airway patent Yes 07/10/24 10:59 [email or web address] [email or web address] Spontaneous unlabored Yes 07/10/24 10:59 VECTOR CONTROL [email or web address] respirations Mental status Asleep 07/10/24 10:59 VECTOR [email or web address] nausea No 07/10/24 10:59 VECTOR CONTROL [email or web address] Vomiting No 07/10/24 10:59 VECTOR CONTROL [email or web address] Anesthesia Postop Eval I: Fluid Summary Crystalloid volume administer 2,400 07/10/24 10:59 VECTOR CONTROL [email or web address] (ml) Colloids volume administered ( ml) Blood Product volume administered (ml) Total IV fluid infused 2,400 07/10/24 10:59 VECTOR CONTROL [email or web address] Anesthesia Postop Eval I: Summary Notes Anesthesia Complication No 07/10/24 10:59 VECTOR [email or web address] Anesthesia Complication Comment: Post-operative progress note Anesthesia: Postop Eval II Evaluation Mental status: Awake Pain Level: 0 nausea: No Vomiting: No
--- NOTE | 2024-07-10 11:29 | PCM.POSTANE2 ---
Anesthesia Postop Eval I Sum Postop Eval Completion status Anesthesia document: Postop Eval 1 completed: Yes Anesthesia Postop Eval I Summary Anesthesia Postop Eval I Summary: Anesthesia Postop Eval I: Assessment Summary Airway patent Yes 07/10/24 10:59 TUTORING [email or web address] Spontaneous unlabored Yes 07/10/24 10:59 TUTORING [email or web address] respirations Mental status Asleep 07/10/24 10:59 TUTORING [email or web address] nausea No 07/10/24 10:59 TUTORING [email or web address] Vomiting No 07/10/24 10:59 TUTORING [email or web address] Anesthesia Postop Eval I: Fluid Summary Crystalloid volume administer 2,400 07/10/24 10:59 TUTORING [email or web address] (ml) Colloids volume administered ( ml) Blood Product volume administered (ml) Total IV fluid infused 2,400 07/10/24 10:59 TUTORING [email or web address] Anesthesia Postop Eval I: Summary Notes Anesthesia Complication No 07/10/24 10:59 TUTORING [email or web address] Anesthesia Complication Comment: Post-operative progress note Anesthesia: Postop Eval II Evaluation Mental status: Awake Pain Level: 0 nausea: No Vomiting: No
[2024-07-10 11:35] LABS: Bedside Glucose 186 mg/dL (74-106)
[2024-07-10] MEDS: Methocarbamol 500 MG Tablet 1000 MG PO ×3 (14:38→22:24)
[2024-07-10] MEDS: dexAMETHasone 4 MG/ML Vial IV ×2 (14:38→22:24)
[2024-07-10] MEDS: 0.9% Saline Lock 10 ML Syringe IV ×2 (14:38→22:24)
[2024-07-10] MEDS: metFORMIN HCl 1,000 MG Tablet 1000 MG PO (16:55)
--- NOTE | 2024-07-10 17:07 | PN_ITS ---
Subjective Subjective Patient is a 73-year-old male with past medical history as outlined was admitted to the service of orthopedic spine surgery on account of cervical stenosis with radicular myelopathy in the setting of previous C6-C7 fusion. He had anterior cervical disc fusion of C4-C6 on 07/10/2024. Hospitalist service was consulted for medical management. Patient seen and examined in his bed. His and daughter were by his bedside. He had no active complaints. Pain was well-controlled. He denied any fever, chills, palpitations, dizziness, nausea or vomiting. Review of systems is otherwise negative. Objective Data Objective Data Vital Signs: Vital Signs Temp Pulse Resp BP Pulse Ox O2 Del Method O2 Flow Rate 97.9 F 76 18 170/76 H 98 Nasal Cannula 2 07/10/24 15:45 07/10/24 15:45 07/10/24 15:45 07/10/24 15:45 07/10/24 16:05 07/10/24 16:05 07/10/24 16:05 Oxygen Flow Rate (L/min) 2 Oxygen Delivery Method Nasal Cannula Weight: 220 lb 7.396 oz Body Mass Index (BMI) 34.5 Intake & Output: Intake and Output for Last 24 Hours 07/08/24 07/09/24 07/10/24 23:59 23:59 23:59 Intake Total 1422 / 1422 Balance 1422 / 1422 Lab / Micro Data 06/27/24 13:05 06/27/24 13:05 Labs: Laboratory Results - last 24 hr 07/10/24 06:02: POC Glucose 266 H 07/10/24 11:12: POC Glucose 186 H Micro: Microbiology 06/27/24 13:05 Swab (Method) Nasal Screen MRSA/MSSA - Final Radiography Diagnostic Testing: Radiology Impression Cervical Spine X-Ray 07/10/24 07:30 IMPRESSION: Intraoperative fluoroscopic services provided for fusion at the C4-C5 and C5-C6 levels with anterior plate and screw fixation device. Reading Location: [facility] Physical Exam Const alert, oriented x3 and no apparent distress Constitutional Narrative: class I obesity. General Appearance: cooperative HEENT normocephalic, head/scalp atraumatic, moist oral mucous membranes and oropharynx normal Eyes PERRL and EOMs intact bilaterally Neck no lymphadenopathy and supple Neck Narrative: cervical collar in situ. Intact anterior neck surgical site dressing. Lymph Lymphatic: no lymphadenopathy noted and no lymphedema noted Resp Resp Narrative: mildly diminished breath sounds bibasally, no wheezes or crackles. On 2L of oxygen by nasal canula Cardio regular rate, regular rhythm, S1 normal heart sound, S2 normal heart sound and no murmurs Peripheral Pulses: pulses 2+ throughout GI normal to inspection, nondistended, normoactive bowel sounds, soft to palpation, non-tender and non-distended Extremity normal capillary refill, no clubbing, cyanosis or edema and no calf tenderness General Extremity: no tenderness to palpation of joints or extremities Skin General Skin Exam: no breakdown Neuro CN's II-XII intact bilaterally, no focal motor deficits and no sensory deficits noted Motor Exam: strength 5/5 throughout and general weakness Psych thought process normal and cooperative Appearance: appropriate Assessment & Plan Assessment/Plan (1) Cervical myelopathy: (2) 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 * Pain management as per primary service. * PT OT on board. Fall precautions. * Incentive spirometry. * #Hypoxia: * Currently on 2 L of oxygen. * Does not wear oxygen at home. * Likely a sequelae of surgery. * Breathing treatments with bronchodilators. * Titrate oxygen off as tolerated. #Type 2 diabetes mellitus: On glipizide and metformin. Insulin sliding scale. Accu-Cheks ACHS. #Hypertension: On losartan and hydralazine as well as propranolol #Hyperlipidemia: On statin DVT prophylaxis: As per primary service. On SCDs. Thank you for the courtesy of the consult. Hospitalist service will continue to follow with you. Charges/Coding Visit Charges Inpatient E&M: 66385 Subs Hosp L2
[2024-07-10] MEDS: HYDROcodone Bitartrate/Apap 5/325 Tablet PO (17:43)
[2024-07-10] MEDS: Senna/Docusate Sodium 1 Tablet 2 TABLET PO (22:23)
[2024-07-10] MEDS: hydrALAZINE 10 MG Tablet PO (22:23)
[2024-07-10] MEDS: Atorvastatin Calcium 10 MG Tablet 5 MG PO (22:23)
[2024-07-10] MEDS: glipiZIDE 5 MG Tablet 7.5 MG PO (22:24)
[2024-07-11] VITALS (8 sets, daily range): BP systolic 155–168; BP diastolic 68–77; PULSE 66–83; RESP 18; TEMP 36.6–36.9; O2SAT 95–98
[2024-07-11 00:17] LABS: Bedside Glucose 210 mg/dL (74-106)
[2024-07-11] MEDS: 0.9% Saline Lock 10 ML Syringe IV ×2 (00:38→05:13)
[2024-07-11] MEDS: Clindamycin 900 MG/50 ML BAG 75 MG IV (00:39)
[2024-07-11] MEDS: HYDROcodone Bitartrate/Apap 5/325 Tablet PO (01:56)
--- NOTE | 2024-07-11 04:40 | RAD_ITS ---
PROCEDURE: CERV SPINE 2 OR 3 VIEWS 07/11/2024 REASON FOR EXAM: S/P CERVICAL FUSION TECHNIQUE: 2 views of the cervical spine. COMPARISON: Intraoperative fluoroscopic views 07/10/2024 and 05/17/2024 FINDINGS: The cervical spine is visualized on the lateral view from the skull base to the mid C6 level. Overlapping gown clips at the C6 level. Status post anterior cervical disc fusion with intervertebral disc spacers C4 through C6 appears anatomic and intact. No fracture or malalignment identified. Mild prevertebral soft tissue swelling/thickening. Left anterior neck Okay drain, safety pin and cervical collar noted. The visualized apices appear clear. RAD/Cerv Spine 2 or 3 Views IMPRESSION: Status post anterior cervical disc fusion with intervertebral disc spacers C4 t hrough C6 appears anatomic and intact as above. No fracture or malalignment identified. Reading Location: [id number]
[2024-07-11] MEDS: Ketorolac 15 MG/ML Vial IV (05:12)
[2024-07-11] MEDS: dexAMETHasone 4 MG/ML Vial IV (05:12)
[2024-07-11 07:11] LABS: Bedside Glucose 213 mg/dL (74-106)
[2024-07-11] MEDS: metFORMIN HCl 1,000 MG Tablet 1000 MG PO (07:56)
[2024-07-11] MEDS: glipiZIDE 5 MG Tablet PO (07:57)
[2024-07-11] MEDS: hydrALAZINE 10 MG Tablet PO (07:57)
[2024-07-11] MEDS: Propranolol LA 60 MG Capsule 120 MG PO (07:57)
[2024-07-11] MEDS: Methocarbamol 500 MG Tablet 1000 MG PO (07:57)
[2024-07-11] MEDS: Losartan Potassium 100 MG Tablet PO (07:57)
[2024-07-11] MEDS: Meloxicam 15 MG Tablet PO (07:58)
[2024-07-11] MEDS: Finasteride 5 MG Tablet PO (07:58)
[2024-07-11] MEDS: Senna/Docusate Sodium 1 Tablet 2 TABLET PO (07:58)
[2024-07-11 08:43] LABS: Hematocrit 35.7 % (40-54); Hemoglobin 12.3 g/dL (13.0-16.5); Mean Corp Hgb Conc 34.5 g/dL (32-36); Mean Corpuscular Hgb 31.7 pg (27.0-32.0); Mean Platelet Vol. 10.8 fl (6.2-12.0); Platelet Count 240 K/mm3 (150-450); RBC Distribution Width CV 12.6 % (11.6-14.6); RBC Distribution Width SD 42.1 fl (35.1-43.9); Red Blood Count 3.88 M/mm3 (4.6-6.2); White Blood Count 14.4 K/mm3 (4.4-11.0)
[2024-07-11 09:06] LABS: Anion Gap 19 (5-15); BUN 19 mg/dL (4-19); Calcium,Total 9.2 mg/dL (7.6-11.0); Carbon Dioxide 18.9 mmol/L (21.0-32.0); Chloride 100 mmol/L (98-108); Creatinine, Serum 1.14 mg/dL (0.70-1.20); EST Glomerular Filtration Rate 68 (>60); Estimated Creatinine Clearance 65.02 ml/min (50-250); Glucose 199 mg/dL (70-99); Potassium 4.6 mmol/L (3.3-5.1); Sodium Level 138 mmol/L (133-145)
--- NOTE | 2024-07-11 09:30 | CASEMGMT ---
RN CM Face to Face with patient for initial transition planning/care coordination assessment. RN CM introduced self and role at [facility]. Patient lying in bed, alert and oriented. Patient willing to participate in assessment and is able to answer all questions appropriately. Care providers, pharmacy, and demographics verified. Strata: 2 PCP: [facility] Specialists: Phi, ortho; Taz, progress man; Elysia, sales secretary; Doreen, urologist; Basali, pain Preferred Pharmacy: [facility] Insurance: [facility], [facility] Prescription Benefit: yes Living Will/HPOA: yes, Belkis Tierney LNOK: , son Living Arrangements: Patient lives with in a split level home wtih 6 steps and railing between levels. Patient states he is independent and able to ambulate stairs. Transportation: self, DME/HHC: Patient has shower chair, cane, walker, and grab bars at home. Patient wishes to discharge home, denies need for home health at this time. Patient states he has no further needs or concerns at this time. CM to follow for discharge planning needs that may arise. Disposition Plan: Patient to discharge home with family support and follow-up plans in place. Rhoda MOLINA, RN, CM
--- NOTE | 2024-07-11 10:53 | PN.HOSP_ITS ---
Reason for Visit Reason for Visit: Diagnoses Disease of spinal cord, unspecified (07/10/24) Other cervical disc degeneration at C5-C6 level (07/10/24) Encounter for other preprocedural examination (07/10/24) Arthrodesis status (07/10/24) Objective Data Objective Data Vital Signs: Vital Signs Temp Pulse Resp BP Pulse Ox O2 Del Method O2 Flow Rate 97.9 F 74 18 161/77 H 98 Room Air 2 07/11/24 09:38 07/11/24 09:38 07/11/24 09:38 07/11/24 09:38 07/11/24 09:55 07/11/24 09:38 07/10/24 16:05 Oxygen Flow Rate (L/min) 2 Oxygen Delivery Method Room Air Weight: 220 lb 7.396 oz Body Mass Index (BMI) 34.5 Intake & Output: Intake and Output for Last 24 Hours 07/09/24 07/10/24 07/11/24 23:59 23:59 23:59 Intake Total 1591.25 / 1591.25 50 / 50 Output Total 700 / 700 Balance 891.25 / 891.25 50 / 50 Lab / Micro Data 07/11/24 06:18 07/11/24 06:18 Labs: Laboratory Results - last 24 hr 07/10/24 06:02: POC Glucose 266 H 07/10/24 11:12: POC Glucose 186 H 07/10/24 22:21: POC Glucose 210 H 07/11/24 06:18: WBC 14.4 H, RBC 3.88 L, Hgb 12.3 L, Hct 35.7 L, MCV 92.0, MCH 31.7, MCHC 34.5, RDW Std Deviation 42.1, RDW Coeff of Ethel 12.6, Plt Count 240, MPV 10.8, Sodium 138, Potassium 4.6, Chloride 100, Carbon Dioxide 18.9 L, Anion Gap 19 H, BUN 19, Creatinine 1.14, Estim Creat Clear Calc 65.02, Est GFR (MDRD) Non-Af 68, BUN/Creatinine Ratio 17.0, Glucose 199 H, Calcium 9.2 07/11/24 06:33: POC Glucose 213 H Micro: Microbiology 06/27/24 13:05 Swab (Method) Nasal Screen MRSA/MSSA - Final Radiography Diagnostic Testing: Radiology Impression Cervical Spine X-Ray 07/10/24 07:30 IMPRESSION: Intraoperative fluoroscopic services provided for fusion at the C4-C5 and C5-C6 levels with anterior plate and screw fixation device. [facility] Cervical Spine X-Ray 07/11/24 04:40 IMPRESSION: Status post anterior cervical disc fusion with intervertebral disc spacers C4 through C6 appears anatomic and intact as above. No fracture or malalignment identified. Reading Location: [facility] Physical Exam Narrative Seen and examined No acute issues. Patient moved his bowel yesterday before surgery. Voiding urine. Physical exam: General: Alert, Oriented x3, Cooperative HEENT: Atraumatic, PERRLA, EOMI, Normocephalic Oral: No Gingival or Mucosal Lesions/ Ulcerations Neck: Wearing hard collar. Surgical dressing with underneath drain. Slight distention. Chest wall/Lungs: Air entry diminished in bilateral lung bases. No crepitation/rhonchi Cardiovascular: Regular rate, Regular Rhythm, Normal S1, Normal S2, systolic murmur Abdomen: Bowel Sounds Present, Soft, Non Tender, Non-Distended : No dysuria. No renal angle tenderness. No suprapubic tenderness. Extremities: No edema, Capillary Refill Less than 3 Seconds Skin: No rashes, No breakdown Musculoskeletal: No Tenderness to Palpation of Joints or Extremities Neurological: Cranial nerves II-XII grossly intact, DTR 2+/4. No acute focal neurological deficit. Psych/Mental Status: Normal Affect, Appropriate. 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 * Pain management as per primary service. * PT OT on board. Fall precautions. * Incentive spirometry. 07/11: Patient is moving with the therapy. No dysphagia. Dressing was changed by the surgeon. Advised to wear cervical collar full-time for first 2 weeks. Follow-up in 2 weeks. #Hypoxia most likely due to anesthesia/mild atelectasis: * Currently on 2 L of oxygen. * Does not wear oxygen at home. * Likely a sequelae of surgery. * Breathing treatments with bronchodilators. 07/11: Weaned off the oxygen. Pulse ox 95% on room. Advised to continue incentive spirometry and PEP for 1 week #Type 2 diabetes mellitus: On glipizide and metformin. Insulin sliding scale. Accu-Cheks ACHS. 07/11: Blood glucose was elevated 213. Lantus 6 units was ordered but patient refused it. On glimepiride and metformin. #Hypertension: On losartan and hydralazine as well as propranolol #Hyperlipidemia: On statin DVT prophylaxis: As per primary service. On SCDs. Patient is being discharged by the primary service. Charges/Coding Visit Charges Inpatient E&M: 71635 Subs Hosp L2
--- NOTE | 2024-07-11 11:33 | CASEMGMT ---
Met with patient to complete BROWN form. BROWN form explained to patient who voiced understanding and signed form. Original form placed in pt?s chart and copy provided to patient. Tessa Fang, Discharge Planning Asst
--- NOTE | 2024-07-11 12:29 | PCM.PN.ORT ---
Subjective Subjective Postop day 1 C4-6 ACDF. Patient is doing well with his pain well-managed. Patient has been up with therapy and has been cleared for home discharge. Patient denies any dysphagia. Says that nursing had to change the dressing 3 times due to saturation. Seen with Dr. Yip. Objective Data Objective Data Vital Signs: Vital Signs Temp Pulse Resp BP Pulse Ox O2 Del Method O2 Flow Rate 97.9 F 74 18 161/77 H 98 Room Air 2 07/11/24 09:38 07/11/24 09:38 07/11/24 09:38 07/11/24 09:38 07/11/24 09:55 07/11/24 09:38 07/10/24 16:05 Oxygen Flow Rate (L/min) 2 Oxygen Delivery Method Room Air Weight: 220 lb 7.396 oz Body Mass Index (BMI) 34.5 Intake & Output: Intake and Output for Last 24 Hours 07/09/24 07/10/24 07/11/24 23:59 23:59 23:59 Intake Total 1591.25 / 1591.25 50 / 50 Output Total 700 / 700 Balance 891.25 / 891.25 50 / 50 Lab / Micro Data 07/11/24 06:18 07/11/24 06:18 Labs: Laboratory Results - last 24 hr 07/10/24 22:21: POC Glucose 210 H 07/11/24 06:18: WBC 14.4 H, RBC 3.88 L, Hgb 12.3 L, Hct 35.7 L, MCV 92.0, MCH 31.7, MCHC 34.5, RDW Std Deviation 42.1, RDW Coeff of Ethel 12.6, Plt Count 240, MPV 10.8, Sodium 138, Potassium 4.6, Chloride 100, Carbon Dioxide 18.9 L, Anion Gap 19 H, BUN 19, Creatinine 1.14, Estim Creat Clear Calc 65.02, Est GFR (MDRD) Non-Af 68, BUN/Creatinine Ratio 17.0, Glucose 199 H, Calcium 9.2 07/11/24 06:33: POC Glucose 213 H Micro: Microbiology 06/27/24 13:05 Swab (Method) Nasal Screen MRSA/MSSA - Final Radiography Diagnostic Testing: Radiology Impression Cervical Spine X-Ray 07/11/24 04:40 IMPRESSION: Status post anterior cervical disc fusion with intervertebral disc spacers C4 through C6 appears anatomic and intact as above. No fracture or malalignment identified. Reading Location: [id number] Physical Exam Narrative Gauze and Tegaderm was removed, drain removed. New Tegaderm and gauze was applied over the incision. Cervical collar was reapplied and instructed patient on how to adjusted to comfort. Neurological examination of the upper extremity shows 5X5 power. Normal sensation across all dermatomes. Const alert, oriented x3 and no apparent distress Assessment & Plan Assessment/Plan (1) Status post cervical spinal fusion: PLAN: Plan Obtained and reviewed x-rays today which show hardware and bone graft in good position. Patient is postop day 1 C4-6 ACDF. Pain has been well-managed, no dysphagia, therapy has cleared for home discharge. Home meds include hydrocodone?acetaminophen, meloxicam, methocarbamol, senna. OARRS reviewed. Reviewed restrictions of no bending, lifting, twisting. He will wear the cervical collar full-time for the first 2 weeks. He will follow-up in the clinic in 2 weeks. Patient is in agreement.
== END 2024-07-11 13:03 | disposition home or self-care (01) ==
LOC: SDC 13:25 → MS3 13:25
PROVIDERS: Anesthesiology; Student in an Organized Health Care Education/Training Program; Admitting Provider Orthopaedic Surgery Orthopaedic Surgery of the Spine; PCP Family Medicine; Referring Provider Orthopaedic Surgery Orthopaedic Surgery of the Spine; Visit Provider Orthopaedic Surgery Orthopaedic Surgery of the Spine
PROC: (CPT 22551; principal; 2024-07-10 07:00)
DX: M50.022 Cervical disc disorder at C5-C6 level with myelopathy (principal); E11.9 Type 2 diabetes mellitus without complications; M48.02 Spinal stenosis, cervical region; M51.34 Other intervertebral disc degeneration, thoracic region; M43.16 Spondylolisthesis, lumbar region; M54.50 Low back pain, unspecified; R09.02 Hypoxemia; G25.0 Essential tremor; N40.0 Benign prostatic hyperplasia without lower urinary tract symptoms; Z98.1 Arthrodesis status; Z79.84 Long term (current) use of oral hypoglycemic drugs; Z79.899 Other long term (current) drug therapy; Z11.52 Encounter for screening for COVID-19
CPT/HCPCS: 22551; 22552; 22845; 20931; 00670; 36415; 72040; 76000; 80048; 82962; 83036; 83735; 85025; 85027; 86703; 86706; 86708; 86803; 86850; 86900; 86901; 87077; 87081; 93005; 94668; 97162; 97166; C1713; A4216; J2405; J3475

== ENCOUNTER → 2024-11-11 | Outpatient (CLI) | payer MEDICARE, OTHER, SELFPAY ==
--- NOTE | 2024-11-11 14:11 | CT_ITS ---
PROCEDURE: ABDOMEN/PELVIS WITHOUT CONT 11/11/2024 REASON FOR EXAM: CALCULUS OF KIDNEY Bilateral renal pain. History of prior lithotripsy. TECHNIQUE: ABDOMEN/PELVIS WITHOUT CONT Noncontrast technique limits evaluation of the abdominal and pelvic viscera. Coronal and Sagittal reconstruction series were provided. One or more dose reduction techniques were used (e.g., Automated exposure control, adjustment of the mA and/or kV according to patient size, use of iterative reconstruction technique). RADIATION DOSE SUMMARY: CTDlvol: 14.17 mGy DLP: 708.13 mGycm COMPARISON: Prior study dated January 16, 2024. FINDINGS: Lung bases: The lung bases are clear. Coronary artery calcification. Liver: Hepatomegaly. Gallbladder: Findings suggestive of sludge in the gallbladder lumen. Spleen: Normal size. Pancreas: Normal size. No surrounding inflammation. Adrenals: The adrenal glands are unremarkable. Kidneys: There is a 6.7 mm triangular calcification in the posterior midpole calyx of the left kidney. Punctate nonobstructive calculus seen in the upper pole of the left kidney. There is also evidence of a 9 mm nonobstructive calculus in the lower pole calyx of the left kidney. Nonobstructive right intrarenal calculi. There is evidence of a 9.6 mm calculus in the renal pelvis of the right ureter causing a mild degree of right hydronephrosis. Nonspecific bilateral perinephric stranding. Bladder: Unremarkable The prostate is enlarged with the indentation of the bladder base. Radiation seeds are seen within the pancreas. Bowel: Colonic diverticulosis without diverticulitis. Appendix: The appendix is thickened measuring 10.3 mm. There is evidence of tiny appendicoliths within the appendiceal lumen. Acute non complicated appendicitis should be ruled out. Lymph nodes: Unremarkable. Vasculature: Mild diffuse atherosclerotic calcifications are noted. Peritoneum / Retroperitoneum: Unremarkable Bones: Degenerative changes of the spine. CT/Abdomen/Pelvis without Cont IMPRESSION: 9.6 mm calculus in the right renal pelvis with right hydronephrosis. Nonobstructive tiny bilateral intrarenal calculi. Nonspecific bilateral perinephric stranding. Thickened and dilatation of the appendix with the at least 2 appendicoliths wit hin its lumen. Clinical correlation recommended. Reading Location: [id number]
== END | disposition home or self-care (01) ==
PROVIDERS: PCP Family Medicine; Referring Provider Nurse Practitioner; Visit Provider Nurse Practitioner
DX: N20.0 Calculus of kidney (principal)
CPT/HCPCS: 74176

== ENCOUNTER 2024-11-20 12:41 | Day surgery (SDC) | payer MEDICARE, OTHER, SELFPAY ==
--- NOTE | 2024-11-14 11:34 | PAT.ANE_ITS ---
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 When Was Last Pacemaker Check QUESTION #4 FULL TEXT: You/Your Family Experience fever (hyperthermia) with Anesthesia Last Oral Intake Last Oral intake: Last Oral Intake NPO since Meds taken in AM with sips of water? 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 agent Female No 11/14/24 11:02 HX of Motion Sickness No 11/14/24 11:02 HX of N/V After Surgery No 11/14/24 11:02 Non-Smoker Yes 11/14/24 11:02 Duration of Surgery greater Yes 11/14/24 11:02 than 60 minutes Number of Risk Factors 2 11/14/24 11:02 PONV Score Moderate Risk 11/14/24 11:02 Height & Weight Height & Weight: Anesthesia: Height & Weight Height 5 ft 7 in 08/22/24 14:31 Respiratory Assessment Respiratory Assessment - at home independent call center agent: Respiratory Tract Infection Hx - at home independent call center agent Hx Respiratory Tract Infection No 11/14/24 11:02 STOP Sleep Apnea STOP Sleep Apnea - at home independent call center agent: STOP Sleep Apnea - at home independent call center agent Hx Hypertension Yes 11/14/24 11:02 Hx Sleep Apnea No 11/14/24 11:02 CPAP No 07/10/24 10:51 BIPAP Do you snore loudly (louder No 11/14/24 11:02 than talking or can be heard Do you often feel tired/ No 11/14/24 11:02 fatigued/ sleepy during daytime? Has anyone observed you stop No 11/14/24 11:02 breathing during sleep? STOP Results Negative 11/14/24 11:02 QUESTION #5 FULL TEXT : Do you snore loudly (louder than talking or can be heard through closed doors)? 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 Specify any problems Hx of Preganancy in last 3 N/A 11/14/24 11:02 Months Nurse Filling Out Transfusion [email or web address] 11/14/24 11:02 & Questions: Date: 11/14/24 11/14/24 11:02 Time: 11:04 11/14/24 11:02 Patient unable to answer at this time (ie. 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: /Reproductive Hx- at home independent call center agent Hx Now No 11/14/24 11:02 Gestational Age (in weeks): EDC: Hx Hx Para Hx Section SAB No 11/14/24 11:02 PFSH Medical History History of steroid therapy Cluster headache Syncope History of stress test Cardiology follow-up encounter Wears hearing aid Wears glasses Cancer Rash Arthritis Back pain Dietary restriction Patient uses snuff History of pain when walking History of edema BPH (benign prostatic hyperplasia) Benign essential tremor Essential hypertension Hyperlipidemia Type 2 diabetes mellitus without complication Constipation Home Medications ?Medication ?Instructions ?Recorded ?Last Taken ?Type simvastatin 10 mg tablet 10 mg PO QHS 07/29/16 History omega-3 fatty acids 1,000 mg 1,000 mg PO DAILY 9 07/07/24 History capsule (Fish Oil Concentrate) propranolol 120 mg capsule,24 120 mg PO DAILY 11/01/18 07/10/24 History hr,extended release multivitamin 1 ea PO DAILY 05/20/1907/09 History naphazoline 0.70066 %-pheniramine 2 drp OP PRN PRN All ergies 05/20/19 12/08/22 History 0.315 % eye drops diphenhydramine HCl 25 mg capsule 25 mg PO BID PRN All ergies 05/21/19 Unknown History docusate sodium 100 mg capsule 100 mg PO QHS PRN Const ipation 05/21/19 12/08/22 History glipizide 5 mg tablet 7.5 mg PO .PM 12/02/2207/09 History finasteride 5 mg tablet 5 mg PO QDAY 04/09/24 History hydralazine 10 mg tablet 10 mg PO BID 04/09/24 History coenzyme Q10 100 mg capsule (Co 200 mg PO DAILY 07/09/24 History Q-10) glipizide 5 mg tablet 5 mg PO DAILY 06/26/2407/09 History losartan 100 mg tablet 100 mg PO DAILY 06/26/2406/04 History metformin 1,000 mg tablet 1,000 mg PO BID 06/26/2405/04 History vitamin B12 1,000 mcg-folic acid 1 tab sublingual ANAND Y 06/26/24 07/09/24 History 400 mcg sublingual tablet sennosides 8.6 mg capsule (senna) 8.6 mg PO BID PRN co nstipation #30 07/11/24 Unknown Rx caps cyclobenzaprine 10 mg tablet 10 mg PO TID PRN spasms 0 11/14/24 Unknown History Allergy/AdvReac Type Severity Reaction Status Date / Time amoxicillin Allergy Hives Verified 11/14/24 10:49 Penicillins Allergy Hives Verified 11/14/24 10:49 tramadol AdvReac Severe Other Verified 11/14/24 10:49 Family History Father Colon cancer CVA (cerebral vascular accident) Mother Cancer Son Hypertension Surgical History Hx of right cataract extraction Hx of left cataract extraction Hx of colonoscopy History of excision of lesion Hx of transurethral resection of prostate History of cystoscopy History of lithotripsy History of incision and drainage History of fusion of cervical spine History of tonsillectomy Social History Smoking Status: Never smoker alcohol intake: current substance use type: does not use caffeine: Yes Type: carbonated beverages Number of servings: 2 Audit: Pertinent Findings Pertinent Findings EKG Perinent findings: Normal sinus rhythm Left axis deviation Nonspecific ST and T wave abnormality Abnormal ECG Consult pertinent findings: Assessment & Plan 1. Preop cardiovascular exam Z01.810 Plan Patient is going for intermediate risk procedure. His EKG showed nonspecific ST-T changes. Patient is asymptomatic from a cardiac standpoint. He has good functional capacity. At this time he does not require any further preoperative cardiovascular testing prior to his urologic procedure. He would be considered low risk for perioperative cardiac complications. 2. Essential hypertension I10 Plan Controlled. Continue current medications. Recommendation Anesthesia Recommendation Anesthesia recommendation: OPTIMIZED for anesthesia
[2024-11-20] VITALS (8 sets, daily range): BP systolic 140–173; BP diastolic 66–87; PULSE 56–66; RESP 16; TEMP 36.1–36.7; O2SAT 89–100; BMI 31.7
[2024-11-20] MEDS: Lactated Ringers 1,000 ML 15 ML IV (13:06)
--- NOTE | 2024-11-20 13:35 | PCM.PRE.AN2 ---
ASA Classification* ASA Classification ASA Classification: 2 Assessment & Plan Anesthesia* Anesthesia Assessment Anesthesia Assessment: Discussed sedation and/or anesthesia options, risks, benefits, and alternatives with patient/parents/legal guardian/POA. Questions invited. The patient/parents/legal guardian/POA seems to understand and agrees to proceed with anesthesia plan. Reviewed the physical assessment, medical history, allergy history and patient home medications list prior to surgery/procedure/anesthetic and documented any changes. Performed airway and anesthesia risk assessments. Anesthesia Type Anesthesia Type: General History Source History Obtained from:: Patient and Chart Anesthesia Focused Assessment* Temperature: 98.1 F Pulse Rate: 66 Blood Pressure: 140/87 Respiratory Rate: 16 Pulse Ox: 100 Oxygen Delivery Method: Room Air Airway Assessment Mouth opens: >3 cm Mallampati Score: II Teeth Condition: Intact Neck Range of motion (ROM): Limited ROM Comment: Recent neck fusion in July 2024. The patient states he was told there is no limitation of neck movements at this time Labs Anesthesia Preop lab: CBC WBC 14.4 K/mm3 (4.4-11.0) H 07/11/24 06:18 07/11/24 RBC 3.88 M/mm3 (4.6-6.2) L 07/11/24 06:18 07/11/24 Hgb 12.3 g/dL (13.0-16.5) L 07/11/24 06:18 07/11/24 Hct 35.7 % (40-54) L 07/11/24 06:18 07/11/24 Plt Count 240 K/mm3 (150-450) 07/11/24 06:18 07/11/24 CHEMISTRY Potassium 4.6 mmol/L (3.3-5.1) 07/11/24 06:18 07/11/24 Sodium 138 mmol/L (133-145) 07/11/24 06:18 07/11/24 Magnesium 2.8 mg/dL (1.5-2.2) H 06/27/24 13:05 06/27/24 BUN 19 mg/dL (4-19) 07/11/24 06:18 07/11/24 Creatinine 1.14 mg/dL (0.70-1.20) 07/11/24 06:18 07/11/24 Glucose 199 mg/dL (70-99) H 07/11/24 06:18 07/11/24 POC Glucose 213 mg/dL (74-106) H 07/11/24 06:33 07/11/24 TSH 4.37 uIU/mL (0.358-3.74) H 09/01/23 10:44 09/01/23 COAG Pre-Assessment Diagnosis/Proposed Procedure Planned Operative Procedure(s): (R) ESWL,Cystocopy Insertion Stent Anesthesia History 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 When Was Last Pacemaker Check QUESTION #4 FULL TEXT: You/Your Family Experience fever (hyperthermia) with Anesthesia Last Oral Intake Last Oral intake: Last Oral Intake NPO since 07:30 11/20/24 13:01 Meds taken in AM with sips of Yes 11/20/24 13:01 water? Meds patient instructed to take am of surgery PONV PONV - customer experience consultant: PONV - customer experience consultant Female No 11/14/24 11:02 HX of Motion Sickness No 11/14/24 11:02 HX of N/V After Surgery No 11/14/24 11:02 Non-Smoker Yes 11/14/24 11:02 Duration of Surgery greater Yes 11/14/24 11:02 than 60 minutes Number of Risk Factors 2 11/14/24 11:02 PONV Score Moderate Risk 11/14/24 11:02 Height & Weight Height & Weight: Anesthesia: Height & Weight Height 5 ft 7 in 11/20/24 13:01 Weight: 92 kg 11/20/24 13:01 Body Mass Index (BMI) 31.7 11/20/24 13:01 Respiratory Assessment Respiratory Assessment - customer experience consultant: Respiratory Tract Infection Hx - customer experience consultant Hx Respiratory Tract Infection No 11/14/24 11:02 STOP Sleep Apnea STOP Sleep Apnea - customer experience consultant: STOP Sleep Apnea - customer experience consultant Hx Hypertension Yes 11/14/24 11:02 Hx Sleep Apnea No 11/14/24 11:02 CPAP No 07/10/24 10:51 BIPAP Do you snore loudly (louder No 11/14/24 11:02 than talking or can be heard Do you often feel tired/ No 11/14/24 11:02 fatigued/ sleepy during daytime? Has anyone observed you stop No 11/14/24 11:02 breathing during sleep? STOP Results Negative 11/14/24 11:02 QUESTION #5 FULL TEXT : Do you snore loudly (louder than talking or can be heard through closed doors)? 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 Specify any problems Hx of Preganancy in last 3 N/A 11/14/24 11:02 Months Nurse Filling Out Transfusion NAVNEET 11/14/24 11:02 & Questions: Date: 11/14/24 11/14/24 11:02 Time: 11:04 11/14/24 11:02 Patient unable to answer at this time (ie. confused, unrespo /Reproduction History /Reproductive History - customer experience consultant: /Reproductive Hx- customer experience consultant Hx Now No 11/14/24 11:02 Gestational Age (in weeks): EDC: Hx Hx Para Hx Section SAB No 11/14/24 11:02 Active Medications Active Medications: Current Medications Generic Name Dose Route Start Last Admin Trade Name Freq PRN Reason Stop Dose Admin Cefazolin Sodium 2 gm/ Sodium 110 mls @ 200 mls/hr 11/20/24 14:30 Chloride IV 11/20/24 15:02 INTRAOP ONE Lactated Ringer's 1,000 mls @ 15 mls/hr 11/20/24 13:00 11/20/24 13:06 IV 15 mls/hr .Q48H PAOLO Administration PFSH Medical History Non-smoker History of steroid therapy Cluster headache Syncope History of stress test Cardiology follow-up encounter Wears hearing aid Wears glasses Cancer Rash Arthritis Back pain Dietary restriction Patient uses snuff History of pain when walking History of edema BPH (benign prostatic hyperplasia) Benign essential tremor Essential hypertension Hyperlipidemia Type 2 diabetes mellitus without complication Constipation Home Medications ?Medication ?Instructions ?Recorded ?Last Taken ?Type simvastatin 10 mg tablet 10 mg PO QHS 07/29/16 07/09/24 History omega-3 fatty acids 1,000 mg 1,000 mg PO DAILY 11/01/18 07/07/24 History capsule (Fish Oil Concentrate) propranolol 120 mg capsule,24 120 mg PO DAILY 11/01/18 11/20/24 History hr,extended release multivitamin 1 ea PO DAILY 05/20/19 07/09/24 History naphazoline 0.82936 %-pheniramine 2 drp OP PRN PRN Allergies 05/20/19 12/08/22 History 0.315 % eye drops diphenhydramine HCl 25 mg capsule 25 mg PO BID PRN Allergies 05/21/19 Unknown History docusate sodium 100 mg capsule 100 mg PO QHS PRN Constipation 05/21/19 12/08/22 History glipizide 5 mg tablet 7.5 mg PO .PM 12/02/22 07/09/24 History finasteride 5 mg tablet 5 mg PO QDAY 04/09/24 07/10/24 History hydralazine 10 mg tablet 10 mg PO BID 04/09/24 11/20/24 History coenzyme Q10 100 mg capsule (Co 200 mg PO DAILY 06/26/24 07/09/24 History Q-10) glipizide 5 mg tablet 5 mg PO DAILY 06/26/24 07/09/24 History losartan 100 mg tablet 100 mg PO DAILY 06/26/24 11/20/24 History metformin 1,000 mg tablet 1,000 mg PO BID 06/26/24 07/09/24 History vitamin B12 1,000 mcg-folic acid 1 tab sublingual DAILY 06/26/24 07/09/24 History 400 mcg sublingual tablet sennosides 8.6 mg capsule (senna) 8.6 mg PO BID PRN constipation #30 07/11/24 Unknown Rx caps cyclobenzaprine 10 mg tablet 10 mg PO TID PRN spasms 11/14/24 Unknown History Allergy/AdvReac Type Severity Reaction Status Date / Time amoxicillin Allergy Hives Verified 11/20/24 13:00 Penicillins Allergy Hives Verified 11/20/24 13:00 tramadol AdvReac Severe Other Verified 11/20/24 13:00 Family History Father Colon cancer CVA (cerebral vascular accident) Mother Cancer Son Hypertension Surgical History Hx of right cataract extraction Hx of left cataract extraction Hx of colonoscopy History of excision of lesion Hx of transurethral resection of prostate History of cystoscopy History of lithotripsy History of incision and drainage History of fusion of cervical spine History of tonsillectomy Social History Smoking Status: Never smoker alcohol intake: current substance use type: does not use caffeine: Yes Type: carbonated beverages Number of servings: 2 Review of Systems (Anesthesia) ROS Narrative System reviewed and no additional complaints, except as documented.
--- NOTE | 2024-11-20 14:18 | RAD_ITS ---
PROCEDURE: ABDOMEN SINGLE VIEW 11/20/2024 REASON FOR EXAM: KIDNEY STONE TECHNIQUE: ABDOMEN SINGLE VIEW COMPARISON: Prior CT scan dated November 11, 2024. FINDINGS: Bowel gas: Large amount of fecal material is seen throughout the colon. Calcifications: No definite calcified calculus is seen. Bones: The bones are unremarkable. Other: RAD/Abdomen Single View IMPRESSION: No definite renal or ureteral calcification seen. Reading Location: [facility]
[2024-11-20] MEDS: Cefazolin 1 GM/5 ML Vial 2 GM IV (15:09)
[2024-11-20] MEDS: Lidocaine 1% (5 ml sdv) 5 ML Vial 10 ML IV (15:14)
[2024-11-20] MEDS: fentaNYL 100 MCG/2 ML Ampul IV (15:57)
--- NOTE | 2024-11-20 15:58 | OP.PCM_ITS ---
Operative Report (Standard) Operative Information Date of Procedure: 11/20/24 Pre-Operative Diagnosis: Right kidney stone Post-Operative Diagnosis: The same Surgery/Procedure Performed: Cystoscopy right stent placement right ESWL trimming department blocker: No Type of Anesthesia: General RN Documented Start/Stop Times: Operation Date: 11/20/24 14:30 Case Time Into Pre-Op 11/20/24 12:47 Out of Pre-Op 11/20/24 15:05 Anesthesia Start 11/20/24 15:09 Into Room 11/20/24 15:09 Procedure Start 11/20/24 15:22 Procedure Start Time: 15:22 Procedure Stop Time: 15:59 Select all DRAINS/GRAFTS/IMPLANTS that apply: Drains Drain details: right stent Estimated Blood Loss: 0 Specimen collected: No Description of surgery: Patient presents to the hospital for treatment of a kidney stone with shockwave lithotripsy. In the preoperative area and x-ray was done to confirm the location of the stone. The x-ray was reviewed and the stone location was revi ewed. In the preoperative setting I spoke with the patient regarding the treatment of the stone how the treatment would be conducted and the expectations after surgery. The patient understands there is a risk of bleeding and infection. Also discussed the very rare risk of hematoma or damage to the kidney. We also discussed the risk that the shockwave machine will fail to break the stone adequately and that the patient may need other surgical procedures. I also discussed the possibility that the patient may need a stent after the procedure. After reviewing the procedure with the patient, the patient is signed the consent form all the patient's questions were addressed and was taken back to the operating room for treatment of a kidney stone. Patient was taken back to the operating room, the patient was identified by the nursing staff, I identified the side of the treatment and the patient side of treatment had been marked by my initials. The patient underwent general anesthetic and was placed supine on the lithotripter table. The urethra and genitals were prepped and draped in usual sterile fashion. Using a 21 [place] rigid cystourethroscope the entire length of the urethra was normal then went into the bladder. Identified the trigone the left and right ureteral orifice. I then cannulated the right ureteral orifice and advanced a wire up into the kidney. I then backloaded a 5 [place] open ended catheter over the wire and injected contrast to delineate the anatomy. After the retrograde was performed I then used fluoroscopic images and guidance to advanced a wire up into the kidney and over the 0.038 glidewire I advanced a 6 [place] by 26 cm double pigtail stent. I then pulled the 0.038 Glidewire off and the stent coiled in the kidney bladder good position. The bladder was then drained. We confirmed the position of the stent by fluoroscopy. I then used fluoroscopy to identify the stone on the right side. I then positioned the patient under the lithotripter and I used triangulation technique to identify the location of the stone and then I made sure that the stone was engaged in the F2 focal point of F2 Donier lithoprior machine. Once the patient was positioned appropriately and the stone was identified and placed in the F2 focal point of the lithotripter machine I then proceeded with shockwave lithotripsy. In the beginning the shockwave was delivered at a rate of 90 shocks per minute, anesthesia monitored the EKG for any ectopy. The power was slowly increased to 5 kV and subsequently at the 7 kV. I then proceeded with the treatment with shock wave therapy and around during the treatment to make sure the stone stayed in the F2 focal point during the entire treatment and after 3000 shockwaves were delivered to the stone under fluoroscopic guidance the treatment was completed. The patient was given instructions to call the office to make an a follow-up appointment with an x-ray to evaluate the success of the treatment, patient understands that its possible the stones may need another procedure. At this point the patient's anesthetic was reversed patient was extubated and taken back to the PACU in stable condition. Surgical Findings: stone treated with ESWL and stent placed Complications Complications: No Admit VTE Documentation VTE Present on Admission: No VTE Mechan Device Prophylaxis: SCD's VTE Pharm Prophylaxis ordered?: No
--- NOTE | 2024-11-20 15:58 | DCINST_ITS ---
Discharge Instructions DC O2, CPAP, BIPAP needs Home O2 Discharge instructions: No Dressing / Incision Discharge Activity: Return to Normal Activity and May Not Drive (while taking narcotic pain medications.) Dressing / Incision Call your doctor if you observe: Fever of 101 or Higher Follow Up Care Please Follow Up With: Duke Logan MD When: Call [phone] for an appointment Test Results: Test results from this visit will be discussed in further detail at your follow- up appointment, if applicable. Discharge Plan Admission Primary Reason for Your Visit: right ESWL and stent Attending Provider: Duke Logan Primary Care Provider: Shant Rojas Instructions Print Language: Panamanian Discharge Orders/Prescriptions Prescriptions: New ciprofloxacin HCl [Cipro] 500 mg tablet 500 mg PO BID Qty: 6 0RF oxycodone 5 mg tablet 5 mg PO Q4H PRN (Reason: pain) 3 Days Qty: 10 0RF Continued propranolol 120 mg capsule,extended release 24 hr 120 mg PO DAILY omega-3 fatty acids [Fish Oil Concentrate] 1,000 mg capsule 1,000 mg PO DAILY docusate sodium 100 mg capsule 100 mg PO QHS PRN (Reason: Constipation) hydralazine 10 mg tablet 10 mg PO BID finasteride 5 mg tablet 5 mg PO QDAY simvastatin 10 MG tablet 10 mg PO QHS multivitamin 1 EACH tablet 1 ea PO DAILY naphazoline-pheniramine 15 ML drops 2 drp OP PRN PRN (Reason: Allergies) diphenhydramine HCl 25 mg capsule 25 mg PO BID PRN (Reason: Allergies) glipizide 5 mg tablet 7.5 mg PO .PM Rx Instructions: BEFORE SUPPER glipizide 5 mg tablet 5 mg PO DAILY Rx Instructions: BEFORE BREAKFAST metformin 1,000 mg tablet 1,000 mg PO BID losartan 100 mg tablet 100 mg PO DAILY vitamin P43-jptol acid 1,000-400 mcg tablet, sublingual 1 tab sublingual DAILY coenzyme Q10 [Co Q-10] 100 mg capsule 200 mg PO DAILY cyclobenzaprine 10 mg tablet 10 mg PO TID PRN (Reason: spasms) senna 8.6 mg capsule 8.6 mg PO BID PRN (Reason: constipation) Qty: 30 0RF Referrals / Follow Up: Duke Logan MD [Med Staff - Active Staff] - Shant Rojas DO [Primary Care Provider] - Disposition Disposition (needs filled in before D/C Order can be placed): Home, Self Care
--- NOTE | 2024-11-20 16:11 | PCM.POST.ANE ---
Anesthesia: Postop Eval I Current Vital Signs Temperature: 97.2 F Pulse Rate: 60 Blood Pressure: 168/72 Respiratory Rate: 16 Pulse Ox: 92 Assessment Airway patent: Yes Spontaneous unlabored respirations: Yes nausea: No Vomiting: No Anesthesia Complication: No Fluid Hydration Crystalloid volume administer (ml): 600 Total IV fluid infused: 600 Progress Note Anesthesia document: Postop Eval 1 completed: Yes
--- NOTE | 2024-11-20 16:38 | POSTOPAN2_ITS ---
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
--- NOTE | 2024-11-20 16:38 | PCM.POSTANE2 ---
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
== END 2024-11-20 17:11 | disposition home or self-care (01) ==
LOC: SDC 12:44 → AC 12:47
PROVIDERS: PCP Family Medicine; Referring Provider Urology; Visit Provider Urology
PROC: (CPT 50590; principal; 2024-11-20 14:20)
DX: N20.0 Calculus of kidney (principal); E11.9 Type 2 diabetes mellitus without complications; Z79.899 Other long term (current) drug therapy; Z79.84 Long term (current) use of oral hypoglycemic drugs; I10 Essential (primary) hypertension; E78.5 Hyperlipidemia, unspecified; Z87.442 Personal history of urinary calculi; N40.1 Benign prostatic hyperplasia with lower urinary tract symptoms; R35.0 Frequency of micturition
CPT/HCPCS: 50590; 52332; 00873; 74018; 82962; C1769; C2617; J2405

== ENCOUNTER → 2025-01-23 | Outpatient (CLI) | payer MEDICARE, OTHER, SELFPAY ==
--- NOTE | 2025-01-23 15:56 | CT_ITS ---
PROCEDURE: ABDOMEN/PELVIS WITHOUT CONT 01/23/2025 REASON FOR EXAM: CALCULUS OF KINDEY TECHNIQUE: Procedure Code: CTABDPEL Modality: CT Procedure: ABDOMEN/PELVIS WITHOUT CONT Noncontrast technique limits evaluation of the abdominal and pelvic viscera. Coronal and Sagittal reconstruction series were provided. One or more dose reduction techniques were used (e.g., Automated exposure control, adjustment of the mA and/or kV according to patient size, use of iterative reconstruction technique). RADIATION DOSE SUMMARY: CTDlvol: 15.45 mGy DLP: 845.12 mGycm COMPARISON: 11/11/2024 FINDINGS: Lung bases: Clear Liver: Normal size. No obvious mass. Gallbladder: Unremarkable Spleen: Normal size. Pancreas: Normal size. No surrounding inflammation. Adrenals: Unremarkable Kidneys: No obstructive uropathy, or suspicious solid renal lesion, previously noted calcification in the proximal right ureter has either passed or been removed. There are bilateral nonobstructing renal stones unchanged from the previous study. There is stable nonspecific stranding of the perinephric fat. Bladder: Distends normally, there is impingement upon the inferior aspect of the bladder from an enlarged prostate which contains calcifications. No suspicious pelvic mass or adenopathy Bowel: No CTA evidence of obstruction, retained stool noted in majority of the colon with scattered colonic diverticulosis but no CT evidence of acute diverticulitis. Appendix: The appendix contains multiple appendicoliths but is free of inflammation or abnormal distention Lymph nodes: No suspicious mesenteric or retroperitoneal lymph nodes Vasculature: Mild diffuse atherosclerotic calcifications are noted. Peritoneum / Retroperitoneum: No free air or fluid Bones: Degenerative bony changes Small fat containing inguinal hernias. CT/Abdomen/Pelvis without Cont IMPRESSION: No obstructive uropathy or suspicious solid renal lesion, previously noted calc ification in the proximal right ureter has either passed or been removed Stable nonobstructing nephrolithiasis No free intraperitoneal fluid, air, or suspicious adenopathy, appendix free of inflammation Mildly enlarged prostate impinging upon the inferior bladder Sigmoid diverticulosis, no CT evidence of acute diverticulitis Reading Location: [facility]
--- OUTSIDE RECORDS SUMMARY | 2025-01-23 16:16 | XMS RPT_ITS | CCD ---
Author Organization [facility] Clini[facility]wy Care Team Providers Care Belt And Link Assembly Supervisor Name Role Phone Nicholas PATINO, Ra James Unavailable [phone] Nathanael Maradiaga DO Primary Care Provider No, Physician Primary Care Provider Zhane FREEMAN, PHYSICIAN Primary Care Unavailable LUCAS AARON Attending Unavailable MINH PINTO Referring Zhane TRINH MD, DR DUKE GÓMEZ Attending Darcy TRINH MD, DR DUKE GÓMEZ Attending Dr. Nathanael Martinez DO Primary Care Provider Dr. Nathanael Maradiaga DO Referring Provider Dr. Alexandre Yip MD Attending Provider Dr. Tha Mcghee MD Attending Provider Dr. Alexandre Yip MD Referring Provider Dr. Alexandre Yip MD Other Provider Phi PATINO, Dr. Schroeder Admit Provider Edinson PATINO, Dr. Racheal Denise Other Provider Dmitry PATINO, Dr. Hooker Other Provider Edinson PATINO, Dr. Racheal Denise Attending Provider Florina Fernandes Attending Provider Nathanael Maradiaga DO Primary Care Provider Dr. Nathanael Maradiaga DO Primary Care Provider Dr. Nathanael Maradiaga DO Referring Provider Dr. Alexandre Yip MD Attending Provider Taz PATINO, Dr. Almazan Attending Provider Dmitry PATINO, Dr. Hooker Attending Provider ASHWINI, NATHANAEL A Primary Care Unavailable JENNY, KARLY Attending Unavailable ASHWINI, NATHANAEL A Primary Care Unavailable ZABRINA, MINH P Attending Unavailable JENNY, KARLY Referring Unavailable ASHWINI, NATHANAEL A Primary Care Unavailable ZABRINA, MINH P Referring Unavailable JENNY, KARLY Attending Unavailable Ashwini DO, Dr. Bran Primary Care Provider Taz PATINO, Dr. Almazan Attending Provider Ashwini MCALLISTER, Dr. Bran Referring Provider Phi PATINO, Dr. Schroeder Attending Provider Ashwini MCALLISTER, Dr. Bran Primary Care Provider Ashwini MCALLISTER, Dr. Bran Referring Provider Phi PATINO, Dr. Schroeder Attending Provider Taz PATINO, Dr. Almazan Attending Provider Florina Fernandes Attending Provider Esthela Leo Attending Provider Esthela Loe Referring Provider Doreen PATINO, Dr. Duke Gómez Attending Provider Doreen PATINO, Dr. Duke Gómez Referring Provider Ashwini, Nathanael Primary Care Unavailable Ashwini, Nathanael Referring Unavailable Alexandre Yip Attending Unavailable Tha Mcghee Attending Unavailable Ashwini, Nathanael Primary Care Unavailable Ashwini, Nathanael Referring Unavailable Ashwini, Nathanael Primary Care Unavailable Alexandre Yip Attending Unavailable Koram, Racheal Camelia Consulting Unavailable Yip, Alexandre Admitting Unavailable Ashwini, Nathanael Primary Care Unavailable Florina Metz Attending Unavailable Yip, Alexandre Referring Unavailable Morro Andres Consulting Unavailable Yip, Alexandre Consulting Unavailable Ashwini, Nathanael Primary Care Unavailable Duke Trinh Attending Unavailable Ashwini, Nathanael Attending Unavailable Ashwini, Nathanael Primary Care Unavailable Ashwini, Nathanael Referring Unavailable Ashwini, Nathanael Primary Care Unavailable Doreen, Duke Gómez Attending Unavailable Doreen, Duke Gómez Referring Unavailable Koram, Racheal Camelia Consulting Unavailable Yip, Alexandre Admitting Unavailable Yip, Alexandre Referring Unavailable Yip, Alexandre Attending Unavailable Ashwini, Nathanael Primary Care Unavailable Dmitry, Morro Consulting Unavailable Ashwini, Nathanael Primary Care Unavailable Doreen, Duke Gómez Attending Unavailable Doreen, Storm Referring Unavailable Dmitry, Morro Attending Unavailable Yip, Alexandre Referring Unavailable Taz, [place] Attending Unavailable Ashwini, Nathanael Primary Care Unavailable Yip, Alexandre Consulting Unavailable Yip, Alexandre Attending Unavailable Ashwini, Nathanael Primary Care Unavailable Yip, Alexandre Referring Unavailable Koram, Racheal Camelia Attending Unavailable Ashwini, Nathanael Referring Unavailable Yip, Alexandre Attending Unavailable Ashwini, Nathanael Primary Care Unavailable Taz, [place] Attending Unavailable Ashwini, Nathanael Primary Care Unavailable Ashwini, Nathanael Referring Unavailable Yip, Alexandre Attending Unavailable Ashwini, Nathanael Primary Care Unavailable Ashwini, Nathanael Primary Care Unavailable Taz, [place] Attending Unavailable Ashwini, Nathanael Referring Unavailable Ashwini, Nathanael Primary Care Unavailable Yip, Alexandre Attending Unavailable Ashwini, Nathanael Primary Care Unavailable Doreen, Duke Gómez Attending Unavailable Doreen, Storm Referring Unavailable Ashwini, Nathanael Primary Care Unavailable [place], Esthela Referring Unavailable [place], Esthela Attending Unavailable Ashwini, Nathanael Attending Unavailable Ashwini, Nathanael Primary Care Unavailable Ashwini, Nathanael Referring Unavailable Ashwini, Nathanael Attending Unavailable Ashwini, Nathanael Primary Care Unavailable Ashwini, Nathanael Referring Unavailable Ashwini, Nathanael Primary Care Unavailable Taz, Tha Attending Unavailable Ashwini, Nathanael Primary Care Unavailable Taz, Tha Attending Unavailable Ashwini, Nathanael Referring Unavailable Ashwini, Nathanael Primary Care Unavailable Florina Metz Attending Unavailable Allergies Allergy Classification Reported Allergen(s) Allergy Type Date of Onset Reaction(s) Facility (20 sources) Amoxicillin; Translations: [AMOXICILLIN] Drug Allergy 9 Unknown, Hives, Swelling [facility] Work Phone: (1 source) Penicillin Drug Allergy 9 [facility] Work Phone: (1 source) PLANT POLLENS; Translations: [PLANT POLLENS] allergy to substance 9 hay fever [facility] Work Phone: (6 sources) Penicillins; Translations: [PENICILLINS] Propensity to adverse reactions 9 [facility] (2 sources) Penicillins Propensity to adverse reactions 9 [facility] (18 sources) Penicillins Allergy to substance 0 [facility] (15 sources) traMADol; Translations: [TRAMADOL] Drug Allergy 3 Other: See Comments [facility] Comment on above: Severe nightmares (4 sources) Penicillins Propensity to adverse reactions 9 [facility] (1 source) Amoxicillin Drug Allergy 5 [facility] (1 source) Penicillins Drug allergy (disorder) 5 [facility] (1 source) traMADol Drug Allergy 5 [facility] Medications Current Medications Medication Drug Class(es) Dates Sig (Normalized) Sig (Original) ciprofloxacin 500 mg oral tablet (20 sources) Quinolone Antimicrobial Start: 11-20-2024 take 1 tablet by mouth twice daily Ciprofloxacin Hcl (Cipro) 500 mg tablet Active 500 mg PO TWICE A DAY 6 November 20, 2024 12:00am Start: 12-09-2022 End: 05-17-2024 take 1 tablet by mouth twice daily Ciprofloxacin Hcl (Cipro) 500 mg tablet Discontinued 500 mg PO TWICE A DAY 10 December 09, 2022 12:00am May 17, 2024 2:43pm Start: 06-21-2019 take 500 mg by mouth twice daily Ciprofloxacin Hcl Active 500 MG PO TWICE A DAY 6 June 21, 2019 12:00am Start: 08-03-2016 End: 11-01-2018 take 1 tablet by mouth twice daily Ciprofloxacin Hcl 500 MG tablet Discontinued 500 mg PO TWICE A DAY 6 August 03, 2016 12:00am November 01, 2018 1:44pm cyclobenzaprine hydrochloride 10 mg oral tablet (20 sources) Muscle Relaxant Start: 11-14-2024 take 1 tablet by mouth three times daily as needed for muscle spasms Cyclobenzaprine 10 mg tablet Active 10 mg PO THREE TIMES A DAY as needed for spasms November 14, 2024 12:00am Start: 11-01-2018 End: 07-11-2024 take 1 tablet by mouth three times daily as needed for muscle spasms Cyclobenzaprine 10 mg tablet Discontinued 10 mg PO THREE TIMES A DAY as needed for muscle spasm November 01, 2018 12:00am July 11, 2024 9:18am docusate sodium 100 mg oral capsule (20 sources) Start: 11-01-2018 End: 05-21-2019 take 1 capsule by mouth at bedtime as needed for constipation Docusate Sodium 100 mg capsule Active 100 mg PO AT BEDTIME as needed for Constipation May 21, 2019 1:56pm finasteride 5 mg oral tablet (11 sources) 5-alpha Reductase Inhibitor Start: 04-09-2024 take 1 tablet by mouth once daily Finasteride 5 mg tablet Active 5 mg PO daily April 09, 2024 1:00am Fish Oil-[place]-3 Fatty Acids (FISH OIL) 340-1,000 mg cap (8 sources) take 1 capsule by mouth three times daily Fish Oil-[place]-3 Fatty Acids (FISH OIL) 340-1,000 mg cap Take 1 capsule by mouth three times daily. Active take 1 capsule by [facility] three times daily Fish Oil-[place]-3 Fatty Acids (FISH OIL) 340-1,000 mg cap Take 1 capsule by mouth three times daily. 0 Active Comment on above: Take 1 capsule by mo ut three times daily. fluconazole 150 mg oral tablet (6 sources) Azole Antifungal Start: 05-20-19 Fluconazole Active 150 MG PO MOWEFR May 20, 2019 1:00am glipiZIDE 5 mg oral tablet (20 sources) Sulfonylurea Start: 06-27-19 take 1 tablet by mouth once daily before breakfast Glipizide 5 mg tablet Active 5 mg PO DAILY June 26, 2024 12:00am BEFORE BREAKFAST Start: 05-20-2024 take 1 tablet by [facility] twice daily before mealtime glipiZIDE (GLUCOTROL) 5 mg tablet Take 5 mg by mouth two times a day before meals. 05/20/2024 Active Start: 12-02-2022 take 7.5 mg by mouth in the evening Glipizide 5 mg tablet Active 7.5 mg PO .PM December 02, 2022 12:00am BEFORE SUPPER Start: 12-02-2022 take 5 mg by mouth twice daily Glipizide Active 5 MG PO TWICE A DAY December 02, 2022 12:00am hydrALAZINE hydrochloride 10 mg oral tablet (11 sources) Arteriolar Vasodilator Start: 07-21-2024 take 1 tablet by mouth three times daily hydrALAZINE (APRESOLINE) 10 mg tablet Take 10 mg by mouth three times a day. 07/21/2024 Active Start: 04-09-2024 take 1 tablet by [facility] twice daily Hydralazine 10 mg tablet Active 10 mg PO TWICE A DAY April 09, 2024 1:00am losartan potassium 100 mg oral tablet (20 sources) Angiotensin 2 Receptor Yobani Start: 06-26-2024 take 1 tablet by mouth once daily Losartan 100 mg tablet Active 100 mg PO DAILY June 26, 2024 12:00am Start: 01-28-2022 losartan (COZA AR) 100 MG tablet Start: 09-09-2021 losartan (COZA AR) 50 mg tablet 09/09/2021 Active Start: 05-20-2019 End: 06-26-2024 take 4 tablets by mouth once daily Losartan 25 MG tablet Discontinued 100 mg PO DAILY May 20, 2019 1:00am June 26, 2024 9:01am Start: 05-20-2019 take 100 mg by mouth once anand y Losartan Active 100 MG PO DAILY May 20, 2019 1:00am Start: 11-15-2017 End: 09-27-2021 take 25 mg by mouth once daily Losartan Active 25 MG P O DAILY May 20, 2019 1:00am mecobalamin (8 sources) mecobalamin (B12 ACTIVE ORAL) Take by mouth. Active mecobalamin (B12 ACTIVE ORAL) Take by mouth. 0 Active Comment on above: Take by mouth. Multivitamin 1 EACH tablet (7 sources) Start: 05-20-2019 Multivitamin 1 EACH tablet Active 1 NMA PO DAILY May 20, 2019 1:00am Multivitamin preparation (20 sources) Start: 05-20-2019 Multivitamin Active 1 EACH PO DAILY May 20, 2019 12:00am Start: 05-20-2019 Multivitamin A ctive 1 EACH PO DAILY May 20, 2019 1:00am multivitamin (MU LTI-DAY ORAL) Take by mouth. Active multivitamin (MU LTI-DAY ORAL) Take by mouth. 0 Active Comment on above: Take by mouth. naphazoline hydrochloride 0.27 mg/ml / pheniramine maleate 3.15 mg/ml ophthalmic solution (20 sources) Start: 05-20-2019 Naphazoline-Pheniramine 15 ML drops Active 2 NMA OP NEEDED as needed for Allergies May 20, 2019 1:00am Start: 01-03-2019 EYE ALLERGY RE LIEF 0.027-0.315 % SOLN instill 1-2 drops as directed up to 4 times daily as needed NAPHAZOLINE-PHENIRAMINE [id number] Terena Hopkins RN nortriptyline 10 mg oral capsule (1 source) Tricyclic Antidepressant Start: 03-09-2022 take 1 capsule by mouth at bedtime nortriptyline (PAMELOR) 10 MG capsule TAKE 1 CAPSULE BY MOUTH AT BEDTIME FOR MIGRAINE 0 03/09/2022 Active [place]-3 Fatty Acids (Fish Oil Concentrate) 1,000 mg capsule (19 sources) Start: 11-01-2018 take 1 capsule by mouth once daily [place]-3 Fatty Acids (Fish Oil Concentrate) 1,000 mg capsule Active 1000 mg PO DAILY November 01, 2018 12:00am Start: 11-01-2018 take 1 capsule by mo uth once daily [place]-3 Fatty Acids (Fish Oil Concentrate) 1,000 mg capsule Active 1000 MG PO DAILY October 31, 2018 11:00pm Start: 11-01-2018 take 1 capsule by mo uth once daily [place]-3 Fatty Acids (Fish Oil Concentrate) 1,000 mg capsule Active 1000 MG PO DAILY November 01, 2018 12:00am oxyCODONE hydrochloride 5 mg oral tablet (2 sources) Opioid Agonist Start: 11-20-2024 take 1 tablet by mouth every four hours as needed for pain Oxycodone 5 mg tablet Active 5 mg PO Q4H as needed for pain 10 3 0 November 20, 2024 Calculus of kidney Calculus of kidney oxyCODONE IR (RO XICODONE) 10 mg tab Take 10 mg by mouth as needed for pain. 0 Active polyethylene glycol 3350 273381 mg / potassium chloride 2970 mg / sodium bicarbonate 6740 mg / sodium chloride 5860 mg / sodium sulfate 85961 mg powder for oral solution (3 sources) Osmotic Laxative Start: 08-12-2024 End: 08-12-2024 peg 3350-Electrolytes (GOLYTELY) 236-22.74-6.74 -5.86 gram suspension Indications: Screen for colon cancer Take 4,000 mL by mouth one time only for 1 dose. Refer to printed prep instructions from your provider. 4000 mL 08/12/2024 08/12/2024 Active Start: 08-03-2021 End: 08-04-2021 peg 3350-Electrolytes (GAVIL YTE-G) 236-22.74-6.74 -5.86 gram suspension Take 4,000 mL by mouth one time only for 1 dose. 1 Each 0 08/04/2021 08/04/2021 Comment on above: Take 4,000 mL by joanna th one time only for 1 dose. 24 hr propranolol hydrochloride 120 mg extended release oral capsule (20 sources) beta-Adrenergic Yobani Start: take 1 capsule by mouth once daily Propranolol 120 mg capsule,extended release 24 hr Active 120 mg PO DAILY November 01, 2018 12:00am Start: 04-10-2015 propranolol ER (INDERAL LA) 120 mg 24 hr capsule 04/10/2015 Active sennosides, senior care 8.6 mg oral capsule (7 sources) Start: 07-11-2024 take 1 capsule by mouth twice daily as needed for constipation Sennosides (Senna) 8.6 mg capsule Active 8.6 mg PO TWICE A DAY as needed for constipation 30 0 July 11, 2024 12:00am sildenafil 20 mg oral tablet (6 sources) Phosphodiesterase 5 Inhibitor Start: 05-21-2019 take 20 mg by mouth once daily Sildenafil (Pulm.Hypertensi on) Active 20 MG PO DAILY May 21, 2019 1:00am simvastatin 10 mg oral tablet (20 sources) HMG-CoA Reductase Inhibitor Start: 07-29-2016 take 1 tablet by mouth at bedtime Simvastatin 10 MG tablet Active 10 mg PO AT BEDTIME July 29, 2016 12:00am Comment on above: Take 10 mg by mouth daily at bedtime. ubidecarenone 100 mg oral capsule (7 sources) Start: 06-26-2024 Coenzyme Q10 (Co Q-10) 100 mg capsule Active 200 mg PO DAILY June 26, 2024 12:00am Vitamin K88-Lrmbn Acid 1,000-400 mcg tablet, sublingual (7 sources) Start: 06-26-2024 Vitamin U51-Tiuck Acid 1,000-400 mcg tablet, sublingual Active 1 {tbl} SL DAILY June 26, 2024 12:00am Completed/Discontinued Medications Medication Drug Class(es) Dates Sig (Normalized) Sig (Original) acetaminophen 500 mg oral tablet (19 sources) Start: 05-21-2019 End: 05-22-2019 take 2 tablets by mouth every six hours as needed Acetaminophen 500 mg tablet Discontinued 1000 mg PO EVERY 6 HOURS as needed May 21, 2019 1:00am May 22, 2019 12:35pm Start: 05-21-2019 End: 05-22-2019 take 1000 mg by mouth every six hours Acetaminophen Discontinued 1000 MG PO EVERY 6 HOURS May 21, 2019 1:00am May 22, 2019 12:35pm acetaminophen 250 mg / aspirin 250 mg / caffeine 65 mg oral tablet (13 sources) Platelet Aggregation Inhibitor, Nonsteroidal Anti-inflammatory Drug, Central Nervous System Stimulant, Methylxanthine Start: 12-02-2022 End: 04-09-2024 Wigqmvw-Jytcjirjzafzw-Eiqrou ne (Excedrin Extra Strength) 250-250-65 mg tablet Discontinued 1 {tbl} PO Q4H as needed for pain December 02, 2022 12:00am April 09, 2024 2:13pm acetaminophen 325 mg / HYDROcodone bitartrate 5 mg oral tablet (20 sources) Opioid Agonist Start: 07-17-2024 End: 10-18-2024 Hydrocodone-Acetaminophen 5- 325 mg tablet Discontinued 1 {tbl} PO EVERY 6 HOURS as needed for pain 0 July 25, 2024 12:00am October 18, 2024 1:04pm Start: 07-11-2024 End: 07-11-2024 Hydrocodone-Acetaminophen 5- 325 mg Tablet Discontinued 1 {tbl} PO EVERY 6 HOURS as needed for pain 28 7 0 July 11, 2024 July 11, 2024 10:50am Status post cervical spinal arthrodesis Arthrodesis status Start: 07-11-2024 End: 07-17-2024 Hydrocodone-Acetaminophen 5- 325 mg tablet Discontinued 1 {tbl} PO EVERY 6 HOURS as needed for pain 28 7 0 July 11, 2024 July 17, 2024 12:00am July 17, 2024 10:51am Status post cervical spinal arthrodesis Arthrodesis status Start: 06-21-2019 End: 06-26-2019 Hydrocodone-Acetaminophen 1 EACH tablet Discontinued 1 NMA PO EVERY 4 HOURS NEEDED as needed for Pain Score 1-10/10 14 5 0 June 21, 2019 June 25, 2019 12:00am June 26, 2019 12:08am Personal history of urinary calculi Start: 06-21-2019 End: 06-26-2019 Hydrocodone-Acetaminophen Di scontinued 1 EACH PO EVERY 4 HOURS NEEDED 14 5 June 21, 2019 June 26, 2019 12:08am Start: 05-21-2019 take 1 tablet by joanna th every six hours Hydrocodone-Acetaminophen Active 1 tab P O EVERY 6 HOURS May 21, 2019 1:47pm Start: 01-03-2019 HYDROCODONE-AC ETAMINOPHEN 5-325 MG TABS 1 tablet up to 4 times daily as directed as needed HYDROCODONE-ACETAMINOPHEN [id number] Cecil Hopkins RN Start: 08-03-2016 End: 05-21-2019 Hydrocodone-Acetaminophen 1 EACH tablet Discontinued 1 NMA PO EVERY 4 HOURS NEEDED as needed for Pain 14 0 August 03, 2016 1:37pm May 21, 2019 1:58pm Start: 08-03-2016 End: 05-21-2019 Hydrocodone-Acetaminophen Di scontinued 1 EACH PO EVERY 4 HOURS NEEDED 14 August 03, 2016 1:37pm May 21, 2019 1:58pm acetaminophen 325 mg / oxyCODONE hydrochloride 7.5 mg oral tablet (20 sources) Opioid Agonist Start: 12-02-2022 End: 07-11-2024 Oxycodone-Acetaminophen 7.5-325 mg tablet Discontinued 1 {tbl} PO EVERY 6 HOURS as needed for pain December 02, 2022 12:00am July 11, 2024 9:20am Start: 12-02-2022 take 1 tablet by joanna th every six hours Oxycodone-Acetaminophen Active 1 TABLET PO EVERY 6 HOURS December 02, 2022 12:00am Start: 07-29-2016 End: 11-01-2018 Oxycodone-Acetaminophen 1 TA BLET tablet Discontinued 1 - 2 {tbl} PO EVERY 4 HOURS NEEDED as needed for Pain July 29, 2016 12:00am November 01, 2018 1:46pm Start: 07-29-2016 End: 11-01-2018 take 1 tablet by mouth every four hours as needed Oxycodone-Acetaminophen Discontinued 1 - 2 TABLET PO EVERY 4 HOURS NEEDED July 29, 2016 12:00am November 01, 2018 1:46pm amLODIPine 5 mg oral tablet (13 sources) Dihydropyridine Calcium Channel Yobani Start: 12-02-2022 End: 04-09-2024 take 1 tablet by mouth once daily Amlodipine 5 mg tablet Discontinued 5 mg PO DAILY December 02, 2022 12:00am April 09, 2024 2:12pm aspirin 500 mg oral tablet (20 sources) Platelet Aggregation Inhibitor, Nonsteroidal Anti-inflammatory Drug Start: 05-20-2019 End: 05-22-2019 take 2 tablets by mouth three times daily Aspirin 500 MG tablet Discontinued 1000 mg PO THREE TIMES A DAY May 20, 2019 1:00am May 22, 2019 12:36pm Start: 05-20-2019 End: 05-22-2019 take 1000 mg by mouth three times daily Aspirin Discontinued 1000 MG PO THREE TIMES A DAY May 20, 2019 1:00am May 22, 2019 12:36pm End: 08-03-2021 take 1 tablet by mouth once daily aspirin, enteric coated (ASPIRIN, ENTERIC COATED) 81 mg EC tablet Take 81 mg by mouth once daily. 0 08/03/2021 Discontinued Comment on above: Take 81 mg by mouth once daily. aspirin 500 mg / caffeine 32.5 mg oral tablet (1 source) Platelet Aggregation Inhibitor, Nonsteroidal Anti-inflammatory Drug, Central Nervous System Stimulant, Methylxanthine Start: 019 SILVERIO BACK & BODY 500-32.5 MG TABS 2 tablets up to 4 times daily as directed as needed ASPIRIN-CAFFEINE [id number] Terena Hopkins RN calcium chloride 0.0014 meq/ml / potassium chloride 0.004 meq/ml / sodium chloride 0.103 meq/ml / sodium lactate 0.028 meq/ml injectable solution (1 source) Start: 025 End: 025 take 30 mL intravenously every hour 30 mL/hr, INTRAVENOUS, CONTINUOUS, Starting on Mon09/06/24 at 0930, Until Mon09/06/24 at 1005, Preprocedure Cyanocobalamin-Laury er Extract (6 sources) Start: 023 End: 023 take 1 tablet by mouth once daily Cyanocobalamin-Live r Extract Discontinued 1 TABLET PO DAILY December 02, 2022 12:00am December 12, 2022 8:14pm Start: 12-02-[address] [facility] [address] [facility] Cyanocobalamin-Liver Extract Active 1 TABLET PO DAILY December 02, 2022 12:00am Cyanocobalamin-Liver Extract tablet (7 sources) Start: 12-02-2022 End: 12-12-2022 Cyanocobalamin-Liver Extract tablet Discontinued 1 {tbl} PO DAILY December 02, 2022 12:00am December 12, 2022 8:14pm dicyclomine hydrochloride 20 mg oral tablet (19 sources) Anticholinergic Start: 05-21-2019 End: 05-22-2019 take 1 tablet by mouth every six hours as needed Dicyclomine 20 mg tablet Discontinued 20 mg PO EVERY 6 HOURS as needed May 21, 2019 1:00am May 22, 2019 12:35pm diphenhydrAMINE (20 sources) Histamine-1 Receptor Antagonist Start: 09-06-2024 End: 09-06-2024 12.5-50 mg, INTRAVENOUS, DIRECTED, Starting on Mon09/06/24 at 1000, Until Mon09/06/24 at 1359, DOSING DIRECTED BY PHYSICIAN FOR PROCEDURAL SEDATION ONLY, Intraprocedure Start: 05-21-2019 take 1 capsule by mo [facility] twice daily as needed Diphenhydramine Hcl 25 mg capsule Active 25 mg PO TWICE A DAY as needed for Allergies May 21, 2019 1:52pm Start: 05-20-2019 End: 05-21-2019 take 2 capsules by mouth at bedtime as needed Diphenhydramine Hcl 25 MG capsule Discontinued 50 mg PO AT BEDTIME NEEDED as needed for Allergies May 20, 2019 1:00am May 21, 2019 1:58pm Start: 05-20-2019 End: 05-21-2019 take 50 mg by mouth at bedtime as needed Diphenhydramine Hcl Discontinued 50 MG PO AT BEDTIME NEEDED May 20, 2019 1:00am May 21, 2019 1:58pm Start: 01-03-2019 BENADRYL ALLER GY 25 MG TABS 1-2 tablets up to 6 times daily as directed as needed DIPHENHYDRAMINE HCL [id number] Terena Hopkins RN take 1 tablet by joanna th every six hours as needed diphenhydrAMINE (BENADRYL ALLERGY) 25 mg tablet Take 25 mg by mouth every 6 hours as needed. Active Comment on above: Take 25 mg by mouth every 6 hours as needed. docusate sodium 50 mg / sennosides, senior care 8.6 mg oral tablet (7 sources) Start: 07-11-2024 End: 07-11-2024 Sennosides-Docusate Sodium (Stimulant Laxative Plus) 8.6-50 mg Tablet Discontinued 2 {tbl} PO TWICE A DAY as needed for constipation 30 0 July 11, 2024 9:20am July 11, 2024 10:52am doxazosin 4 mg oral tablet (1 source) alpha-Adrenergic Yobani Start: 01-03-2019 DOXAZOSIN MESYLATE 4 MG TABS 1 tablet once daily DOXAZOSIN MESYLATE [id number] Cecil Hopkins RN 1 ml fentaNYL 0.05 mg/ml injection (1 source) Opioid Agonist Start: 09-06-2024 End: 09-06-2024 25-100 mcg, INTRAVENOUS, DIRECTED, Starting on Mon09/06/24 at 1000, Until Mon09/06/24 at 1359, DOSING DIRECTED BY PHYSICIAN FOR PROCEDURAL SEDATION ONLY, Intraprocedure hydrocortisone 1 mg/ml topical cream (20 sources) Corticosteroid Start: 05-20-2019 End: 05-22-2019 Hydrocortisone Butyr-Emollient 60 GM cream Discontinued 15 g TP NEEDED as needed for DERMATITIS May 20, 2019 1:00am May 22, 2019 12:34pm Start: 05-20-2019 End: 05-22-2019 Hydrocortisone Butyr-Emollie nt Discontinued 15 GM TP NEEDED May 20, 2019 1:00am May 22, 2019 12:34pm Start: 01-03-2019 LOCOID LIPOCRE AM 0.1 % CREA apply topically twice daily as directed as needed HYDROCORTISONE BUTYR LIPO BASE [id number] Cecil Hopkins RN ibuprofen 600 mg oral tablet (19 sources) Nonsteroidal Anti-inflammatory Drug Start: 05-24-2019 End: 05-29-2019 take 1 tablet by mouth every six hours as needed for pain Ibuprofen 600 MG tablet Discontinued 600 mg PO EVERY 6 HOURS NEEDED as needed for Pain Score 1-10/10 20 5 0 May 24, 2019 4:54pm May 28, 2019 1:00am May 29, 2019 1:08am Inulin (13 sources) Start: 12-02-2022 End: 04-09-2024 take 1 tablet by mouth twice daily Inulin (Prebiotic Fiber) 2 gram tablet,chewable Discontinued 3 g PO TWICE A DAY December 02, 2022 12:00am April 09, 2024 2:13pm Start: 12-02-2022 take 1 tablet by joanna th twice daily Inulin (Prebiotic Fiber) 2 gram tablet,chewable Active 3 GM PO TWICE A DAY December 02, 2022 12:00am meloxicam 15 mg oral tablet (14 sources) Nonsteroidal Anti-inflammatory Drug Start: 07-11-2024 End: 10-18-2024 take 1 tablet by mouth once daily Meloxicam 15 mg Tablet Discontinued 15 mg PO DAILY 30 0 July 11, 2024 12:00am July 11, 2024 10:51am metFORMIN hydrochloride 500 mg oral tablet (20 sources) Biguanide Start: 11-01-2018 End: 06-26-2024 take 2 tablets by mouth twice daily at mealtime Metformin 500 mg tablet Discontinued 1000 mg PO TWICE DAILY WITH MEALS November 01, 2018 1:44pm June 26, 2024 9:02am Start: 11-01-2018 take 1000 mg by mout h twice daily at mealtime Metformin Active 1000 MG PO TWICE DAILY WITH MEALS November 01, 2018 1:44pm Start: 07-29-2016 End: 11-01-2018 take 1 tablet by mouth twice daily at mealtime Metformin 500 MG tablet Discontinued 500 mg PO TWICE DAILY WITH MEALS July 29, 2016 12:00am November 01, 2018 1:51pm Start: 04-10-2015 take 1 tablet by joanna th twice daily Metformin 1,000 mg tablet Active 1000 mg PO TWICE A DAY June 26, 2024 12:00am methocarbamol 500 mg oral tablet (14 sources) Muscle Relaxant Start: 07-11-2024 End: 07-11-2024 Methocarbamol 500 mg Tablet Discontinued 750 mg PO THREE TIMES A DAY as needed for pain/spasms 60 0 July 11, 2024 9:19am July 11, 2024 10:52am Start: 07-11-2024 End: 10-18-2024 take 500-750 mg by mouth three times daily as needed for pain Methocarbamol 500 mg tablet Discontinued 500 - 750 mg PO THREE TIMES A DAY as needed for pain/spasms 60 0 July 11, 2024 12:00am October 18, 2024 1:04pm 5 ml midazolam 1 mg/ml injection (1 source) Benzodiazepine Start: 09-06-2024 End: 09-06-2024 1-5 mg, INTRAVENOUS, DIRECTED, Starting on Mon09/06/24 at 1000, Until Mon09/06/24 at 1359, DOSING DIRECTED BY PHYSICIAN FOR PROCEDURAL SEDATION ONLY, Intraprocedure MULTIPLE VITAMINS-MINERALS (1 source) Start: 01-03-2019 CENTRUM SILVER TABS 1 tablet once daily MULTIPLE VITAMINS-MINERALS [id number] Cecil Hopkins RN nystatin 713572 unt/ml topical cream (1 source) Polyene Antifungal Start: 01-03-2019 NYSTATIN 10 0000 UNIT/GM CREA apply topically as directed twice daily as needed NYSTATIN [id number] Cecil Hopkins RN Nystatin / Triamcinolone (19 sources) Polyene Antifungal, Corticosteroid Start: 11-01-2018 End: 05-21-2019 Nystatin-Triamcinolone cream Discontinued 1 NMA TOPICAL TWICE A DAY 0 November 01, 2018 12:00am May 21, 2019 1:50pm Start: 11-01-2018 End: 05-21-2019 Nystatin-Triamcinolone cream Discontinued 1 NMA TOPICAL TWICE A DAY November 01, 2018 12:00am May 21, 2019 1:50pm Start: 11-01-2018 End: 05-21-2019 nystatin-triamcinolone topic al cream Discontinued 1 APPLIC TOPICAL TWICE A DAY October 31, 2018 11:00pm May 21, 2019 12:50pm Start: 11-01-2018 End: 05-21-2019 nystatin-triamcinolone topic al cream Discontinued 1 APPLIC TOPICAL TWICE A DAY November 01, 2018 12:00am May 21, 2019 1:50pm OMEGA-3 FATTY ACIDS CAPS (1 source) Start: 01-03-2019 OMEGA-3 FISH OIL CAPS 600mg twice daily OMEGA-3 FATTY ACIDS CAPS [id number] Cecil Hopkins RN phenazopyridine hydrochloride 100 mg oral tablet (12 sources) Start: 12-09-2022 End: 04-09-2024 take 1 tablet by mouth three times daily Phenazopyridine (Pyridium) 100 mg tablet Discontinued 100 mg PO THREE TIMES A DAY December 09, 2022 12:00am April 09, 2024 2:14pm potassium citrate 10 meq extended release oral tablet (20 sources) Start: 08-02-2016 End: 08-03-2021 take 1 tablet by mouth twice daily Potassium Citrate 10 MEQ tablet extended release Discontinued 10 meq PO TWICE A DAY August 02, 2016 12:00am November 01, 2018 1:51pm Comment on above: Take by mouth twice daily. sulfamethoxazole 800 mg / trimethoprim 160 mg oral tablet (1 source) Dihydrofolate Reductase Inhibitor Antibacterial, Sulfonamide Antimicrobial Start: 01-03-2019 BACTRIM DS 800-160 MG TABS 1 tablet every 12 hours X 7 days SULFAMETHOXAZOLE-TR IMETHOPRIM [id number] Cecil Hopkins RN tamsulosin hydrochloride 0.4 mg oral capsule (20 sources) alpha-Adrenergic Yobani Start: 12-09-2022 End: 04-09-2024 take 1 capsule by mouth once daily Tamsulosin (Flomax) 0.4 mg capsule Discontinued 0.4 mg PO DAILY December 09, 2022 12:00am April 09, 2024 2:14pm Start: 07-29-2016 End: 11-01-2018 take 1 capsule by mouth once daily Tamsulosin 0.4 MG capsule Discontinued 0.4 mg PO DAILY 14 July 29, 2016 12:00am November 01, 2018 1:48pm traMADol hydrochloride 50 mg oral tablet (12 sources) Opioid Agonist Start: 12-09-2022 End: 04-09-2024 take 1 tablet by mouth three times daily as needed for pain Tramadol 50 mg tablet Discontinued 50 mg PO THREE TIMES A DAY as needed for pain December 09, 2022 12:00am April 09, 2024 2:14pm valsartan 40 mg oral tablet (20 sources) Angiotensin 2 Receptor Yobani Start: 07-29-2016 End: 08-03-2021 take 1 tablet by mouth once daily Valsartan 40 MG tablet Discontinued 40 mg PO DAILY July 29, 2016 12:00am November 01, 2018 1:48pm Comment on above: Take 40 mg by mouth once daily. Problems Active Problems Problem Classification Problem Date Documented Date Episodic/Chronic Calculus of urinary tract (20 sources) Ureteric colic; Translations: [Unspecified renal colic] Onset: 11-20-2024 06-09-2019 Episodic Diabetes mellitus with complications (4 sources) Type 2 diabetes mellitus; Translations: [Type 2 diabetes mellitus with other diabetic ophthalmic complication] Onset: 03-16-2022 Chronic Diabetes mellitus without complication (1 source) Diabetes mellitus; Translations: [Type 2 diabetes mellitus without complications] Onset: 03-16-2022 03-16-2022 Chronic Disorders of lipid metabolism (20 sources) Mixed hyperlipidemia; Translations: [Mixed hyperlipidemia] Onset: 08-03-2021 08-03-2021 Chronic Comment on above: ON MED E Codes: Fall (11 sources) Fall; Translations: [Unspecified fall, initial encounter] 12-12-2022 Episodic Essential hypertension (20 sources) Essential hypertension; Translations: [Essential (primary) hypertension] Onset: 03-16-2022 Chronic Comment on above: CONTROLLED WITH MEDS Malaise and fatigue (20 sources) Asthenia; Translations: [Weakness] 12-12-2022 Episodic Other acquired deformities (16 sources) Lumbar spondylolisthesis; Translations: [Spondylolisthesis, lumbar region] 04-09-2024 Episodic Other and unspecified benign neoplasm (11 sources) History of polyp of colon; Translations: [Personal history of colonic polyps] Onset: 09-06-2024 Episodic Other and unspecified benign neoplasm (1 source) Tubular adenoma ; Translations: [Benign neoplasm, unspecified site] Episodic Other and unspecified benign neoplasm (1 source) Polyp ; Translations: [Benign neoplasm, unspecified site] 09-12-2024 Episodic Other and unspecified benign neoplasm (1 source) Benign neoplasm, unspecified site; Translations: [Adenomatous polyp] Onset: 09-13-2024 Episodic Other connective tissue disease (20 sources) History of cervical spine fusion; Translations: [Arthrodesis status] 04-09-2024 Episodic Other eye disorders (2 sources) Bilateral myogenic ptosis of eyes; Translations: [Myogenic ptosis of bilateral eyelids] Onset: 03-16-2022 Episodic Other eye disorders (1 source) Myogenic ptosis of bilateral eyelids; Translations: [Myogenic ptosis of bilateral eyelids] Onset: 03-16-2022 Episodic Other nervous system disorders (20 sources) Cervical myelopathy; Translations: [Disease of spinal cord, unspecified] 05-17-2024 Chronic Other nervous system disorders (1 source) Disease of spinal cord, unspecified; Translations: [Disease of spinal cord, unspecified] Onset: 07-15-2024 Chronic Other nervous system disorders (8 sources) Impairment of balance; Translations: [Other abnormalities of gait and mobility] 04-09-2024 Episodic Spondylosis; intervertebral disc disorders; other back problems (20 sources) Degeneration of cervical intervertebral disc; Translations: [Disorder of cervical spine] Onset: 01-04-2019 01-04-2019 Chronic Unclassified (16 sources) Status post cervical spinal arthrodesis; Translations: [Z98.1 - Arthrodesis status] Unclassified (1 source) History of colonic polyps; Translations: [History of colonic polyps] Onset: 09-06-2024 Unclassified (1 source) Low back pain, unspecified; Translations: [Low back pain, unspecified] Onset: 04-09-2024 Urinary tract infections (19 sources) Urinary tract infectious disease; Translations: [Urinary tract infection, site not specified] 06-09-2019 Episodic Past or Other Problems Problem Classification Problem Date Documented Date Episodic/Chronic Other acquired deformities (1 source) Stenosis of intervertebral foramina; Translations: [Spinal stenosis, cervical region] Onset: 01-04-2019 01-04-2019 Episodic Other connective tissue disease (2 sources) Arthrodesis status; Translations: [Arthrodesis status] Onset: 07-15-2024 Episodic Other screening for suspected conditions (not mental disorders or infectious disease) (10 sources) Patient encounter status; Translations: [Encounter for screening for malignant neoplasm of colon] Onset: 11-23-2023 Episodic Residual codes; unclassified (1 source) H/O Spinal surgery; Translations: [Arthrodesis status] Onset: 01-04-2019 01-04-2019 Episodic Residual codes; unclassified (13 sources) Family history of cancer of colon; Translations: [Family history of malignant neoplasm of digestive organs] Onset: 06-02-2014 Episodic Spondylosis; intervertebral disc disorders; other back problems (8 sources) Degenerative cervical spinal stenosis; Translations: [Spinal stenosis, cervical region] Onset: 05-17-2024 05-17-2024 Episodic Unclassified (1 source) Problem Unclassified (2 sources) Patient encounter status 08-12-2024 Results Test Name Value Interpretation Reference Range Facility Coronary Angiography CTon Coronary Angiography CT [facility] Imaging Services [address] [place] [address] 12/26/24 0840 MR#: [id number] Acct: [id number] Name: TERESA RAINEY Rep #: [id number] : 1950 74 From: Tha Mcghee MD PCP: Dr. Nathanael Maradiaga, DO Status:REG REF Y Location: CT Calcium Scoring Date of Study:: 12/18/24 Indications Indications: Screening Coronary Calcium Scoring: High-resolution Computed Tomographic imaging of the chest was performed on [12/18/2024], with particular attention paid to the coronary arteries. Images from the examination were analyzed for the presence and extent of coronary artery calcification , using coronary calcium quantification software. The patient tolerated the procedure well and there were no complications. The results of the coronary calcification analysis are provided below. Findings Coronary Artery Left Main (LM): 24 Left Anterior Descending (LAD): 277 Left Circumflex (LCX): 4.2 Right Coronary Artery (RCA): 328 Total Agatston Score: 633.2 Percentile Rankin-75 Calcium Scoring Interpretation: Different methods to categorize the overall amount of coronary plaque. Overall amount CAC SIS Visual of coronary plaque P1 Mild -100 <2 1-2 vessels with mild amount of plaque P2 Moderate 101-300 3-4 1-2 vessels with moderate amount, 3 vessels with mild amount of plaque P3 Severe 301-999 5-7 3 vessels with moderate amount, 1 vessel with severe amount of plaque P4 Extensive >1000 >8 2-3 vessels with severe amount of plaque Calcium Score: Moderate: 1-2 vessels w/moderate amt, 3 vessels w/mild amt of plaque Conclusion: 2 vessels with moderate amount of plaque present. 12/26/24 0842 Date Tha Mcghee MD Cosigner Signature (if applicable): Date CC: Dr. Tha Mcghee MD; Dr. Nathanael Maradiaga DO Signed Normal [facility] Limited Chest CT Cardiac Onl yon 12-18-[address] Cardiac Only [facility] Imaging Services [address] [place], [place] [address] Limited Chest CT Cardiac Only MR#: [id number] Acct: [id number] Name: TERESA RAINEY Rep #: [id number] : 1950 M 74 From: Oliverio Reese PCP: Dr. Nathanael Maradiaga DO Status: REG REF Study: Limited Chest CT Cardiac Only Date of Exam: Exam# [id number] Ordering Dr: Nathanael Maradiaga DO PROCEDURE: LIMITED CHEST CT CARDIAC ONLY 12/18/2024 REASON FOR EXAM: SCREEN, in patient with family history of coronary artery disease. TECHNIQUE: Procedure Code: [id number] Modality: CT Procedure: LIMITED CHEST CT CARDIAC ONLY CT performed for coronary artery calcium scoring. One or more dose reduction techniques were used (e.g., Automated exposure control, adjustment of the mA and/or kV according to patient size, use of iterative reconstruction technique). RADIATION DOSE SUMMARY: CTDlvol: 12.19 mGy DLP: 243.[address]/Limited Chest CT Cardiac Only IMPRESSION: Limited imaging of the lungs demonstrates no acute process. No pleural effusion or pneumothorax is seen in visualized areas. No adenopathy is noted. The visualized upper abdomen demonstrates no significant abnormality. Reading Location: [place] [address] CC: Dr. Nathanael Maradiaga DO [employer] Specialist: Signed Normal [facility] Abdomen Single Viewon 2024 Abdomen Single View [facility] Imaging Services [address] [place], [place] [address] Abdomen Single View MR#: [id number] Acct: [id number] Name: TERESA RAINEY Rep #: [id number] : 1950 M 74 From: Rogelio jolley MD PCP: Dr. Nathanael Maradiaga DO Status: REG SDC Study: Abdomen Single View Date of Exam: 11/20/24 Exam# [id number] Ordering Dr: Duke Trinh MD PROCEDURE: ABDOMEN SINGLE VIEW 11/20/2024 REASON FOR EXAM: KIDNEY STONE TECHNIQUE: ABDOMEN SINGLE VIEW COMPARISON: Prior CT scan dated November 11, 2024. FINDINGS: Bowel gas: Large amount of fecal material is seen throughout the colon. Calcifications: No definite calcified calculus is seen. Bones: The bones are unremarkable. Other: RAD/Abdomen Single View IMPRESSION: No definite renal or ureteral calcification seen. Reading Location: [facility] CC: Dr. Duke Trinh MD; Dr. Nathanael Maradiaga DO [employer] Specialist: Signed Normal [facility] Bedside Glucoseon 11-20-2024 FINGERSTICK GLU 133 mg/dL High 74-106 [facility] Comment on above: Result Comment: PHILIP GEMENT OF PATIENT CARE PER NURSING PROTOCOL Performed By: #### L 501.080 #### [facility] Laboratory [address] [place], [address] Discharge Instructionon 11-08 Discharge Instruction [facility] Medical Records Department [address] [place] [address] Instructions for Home/Discharge Instructions 11/20/24 1558 MR#: [id number] Acct: [id number] Name: TERESA RAINEY Rep #: [id number] : 1950 74 From: Duke Trinh MD PCP: Dr. Nathanael Maradiaga, Status:REG [facility] Discharge Instructions DC O2, CPAP, BIPAP needs Home O2 Discharge instructions: No Dressing / Incision Discharge Activity: Return to Normal Activity and May Not Drive (while taking narcotic pain medications.) Dressing / Incision Call your doctor if you observe: Fever of 101 or Higher Follow Up Care Please Follow Up With: Duke Trinh MD When: Call [phone] for an appointment Test Results: Test results from this visit will be discussed in further detail at your follow-up appointment, if applicable. Discharge Plan Admission Primary Reason for Your Visit: right ESWL and stent Attending Provider: Duke Trinh Primary Care Provider: Nathanael Maradiaga Instructions Print Language: [place] Discharge Orders/Prescriptions Prescriptions: New ciprofloxacin HCl [Cipro] 500 mg tablet 500 mg PO BID Qty: 6 0RF oxycodone 5 mg tablet 5 mg PO Q4H PRN (Reason: pain) 3 Days Qty: 10 0RF Continued propranolol 120 mg capsule,extended release 24 hr 120 mg PO DAILY omega-3 fatty acids [Fish Oil Concentrate] 1,000 mg capsule 1,000 mg PO DAILY docusate sodium 100 mg capsule 100 mg PO QHS PRN (Reason: Constipation) hydralazine 10 mg tablet 10 mg PO BID finasteride 5 mg tablet 5 mg PO QDAY simvastatin 10 MG tablet 10 mg PO QHS multivitamin 1 EACH tablet 1 ea PO DAILY naphazoline-pheniramine 15 ML drops 2 drp OP PRN PRN (Reason: Allergies) diphenhydramine HCl 25 mg capsule 25 mg PO BID PRN (Reason: Allergies) glipizide 5 mg tablet 7.5 mg PO .PM Rx Instructions: BEFORE SUPPER glipizide 5 mg tablet 5 mg PO DAILY Rx Instructions: BEFORE BREAKFAST metformin 1,000 mg tablet 1,000 mg PO BID losartan 100 mg tablet 100 mg PO DAILY vitamin A42-qfceb acid 1,000-400 mcg tablet, sublingual 1 tab sublingual DAILY coenzyme Q10 [Co Q-10] 100 mg capsule 200 mg PO DAILY cyclobenzaprine 10 mg tablet 10 mg PO TID PRN (Reason: spasms) senna 8.6 mg capsule 8.6 mg PO BID PRN (Reason: constipation) Qty: 30 0RF Referrals / Follow Up: Duke Trinh MD [Med Staff - Active Staff] - Nathanael Maradiaga DO [Primary Care Provider] - Disposition Disposition (needs filled in before D/C Order can be placed): Home, Self Care 11/20/24 0054 Duke Trinh MD CC: Dr. Nathanael Maradiaga DO Signed Normal [facility] Gl[facility] deOrdered By: Duke Trinh on 11-20-2024 Glucose [Mass/Vol] 133 mg/dL High 74-106 [facility] Comment on above: MANAGEMENT OF PATIEN T CARE PER NURSING PROTOCOL MR/POSTOP.ANEon 11-20-2024 MR/POSTOP.ANE [facility] Medical Records Department [address] [place] [address] Anesthesia Postop Eval I 11/20/24 1611 MR#: [id number] Acct: [id number] Name: TERESA RAINEY Rep #: [id number] : 1950 74 From: Alvaro Crews CRNA PCP: Dr. Nathanael Maradiaga, DO Status:REG SDC Y Race: C Location: [place] [address] Anesthesia: Postop Eval I Current Vital Signs Temperature: 97.2 F Pulse Rate: 60 Blood Pressure: 168/72 Respiratory Rate: 16 Pulse Ox: 92 Assessment Airway patent: Yes Spontaneous unlabored respirations: Yes nausea: No Vomiting: No Anesthesia Complication: No Fluid Hydration Crystalloid volume administer (ml): 600 Total IV fluid infused: 600 Progress Note Anesthesia document: Postop Eval 1 completed: Yes 11/20/24 161 Date Alvaro Crews DENTAL OFFICE RECEPTIONIST Cosigner Signature: Date CC: Signed Normal [facility] [id number] 11-20-2024 MR/POSTOPAN2 [facility] Medical Records Department [address] [place] [address] Anesthesia Postop Eval II 11/20/24 1638 MR#: [id number] Acct: [id number] Name: TERESA RAINEY Rep #: [id number] : 1950 74 From: Karen Neves CRNA PCP: Dr. Nathanael Maradiaga, DO Status:REG SDC Y Race: C Location: [place] [address] 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/24 16:11 DENTAL OFFICE RECEPTIONIST.[email or web address] Spontaneous unlabored Yes 11/20/24 16:11 DENTAL OFFICE RECEPTIONIST.TNES respirations Mental status nausea No 11/20/24 16:11 DENTAL OFFICE RECEPTIONIST.TNES Vomiting No 11/20/24 16:11 DENTAL OFFICE RECEPTIONIST.TNES Anesthesia Postop Eval I: Fluid Summary Crystalloid volume administer 600 11/20/24 16:11 DENTAL OFFICE RECEPTIONIST.TNES (ml) Colloids volume administered ( ml) Blood Product volume administered (ml) Total IV fluid infused 600 11/20/24 16:11 DENTAL OFFICE RECEPTIONIST.TNES Anesthesia Postop Eval I: Summary Notes Anesthesia Complication No 11/20/24 16:11 DENTAL OFFICE RECEPTIONIST.TNES Anesthesia Complication Comment: Post-operative progress note Anesthesia: Postop Eval II Evaluation Mental status: Awake Pain Level: 2 nausea: No Vomiting: No 11/20/24 1639 Date Karen Neves DENTAL OFFICE RECEPTIONIST Cosigner Signature: Date CC: Signed Normal [facility] Operative Reporton 5 Operative Report [facility] Medical Records Department [address] [place] [address] Operative Report 11/20/24 1558 MR#: [id number] Acct: [id number] Name: TERESA RAINEY Rep #: [id number] : 1950 74 From: Duke Trinh MD PCP: Dr. Nathanael Maradiaga, DO Status:REG [facility] Location: [place] [address] Operative Report (Standard) Operative Information Date of Procedure: 11/20/24 Pre-Operative Diagnosis: Right kidney stone Post-Operative Diagnosis: The same Surgery/Procedure Performed: Cystoscopy right stent placement right ESWL commutator repairer: No Type of Anesthesia: General RN Documented Start/Stop Times: Operation Date: 11/20/24 14:30 Case Time Into Pre-Op 11/20/24 12:47 Out of Pre-Op 11/20/24 15:05 Anesthesia Start 11/20/24 15:09 Into Room 11/20/24 15:09 Procedure Start 11/20/24 15:22 Procedure Start Time: 15:22 Procedure Stop Time: 15:59 Select all DRAINS/GRAFTS/IMPLANTS that apply: Drains Drain details: right stent Estimated Blood Loss: 0 Specimen collected: No Description of surgery: Patient presents to the hospital for treatment of a kidney stone with shockwave lithotripsy. In the preoperative area and x-ray was done to confirm the location of the stone. The x-ray was reviewed and the stone location was reviewed. In the preoperative setting I spoke with the patient regarding the treatment of the stone how the treatment would be conducted and the expectations after surgery. The patient understands there is a risk of bleeding and infection. Also discussed the very rare risk of hematoma or damage to the kidney. We also discussed the risk that the shockwave machine will fail to break the stone adequately and that the patient may need other surgical procedures. I also discussed the possibility that the patient may need a stent after the procedure. After reviewing the procedure with the patient, the patient is signed the consent form all the patient's questions were addressed and was taken back to the operating room for treatment of a kidney stone. Patient was taken back to the operating room, the patient was identified by the nursing staff, I identified the side of the treatment and the patient side of treatment had been marked by my initials. The patient underwent general anesthetic and was placed supine on the lithotripter table. The urethra and genitals were prepped and draped in usual sterile fashion. Using a 21 Lebanese rigid cystourethroscope the entire length of the urethra was normal then went into the bladder. Identified the trigone the left and right ureteral orifice. I then cannulated the right ureteral orifice and advanced a wire up into the kidney. I then backloaded a 5 Lebanese open ended catheter over the wire and injected contrast to delineate the anatomy. After the retrograde was performed I then used fluoroscopic images and guidance to advanced a wire up into the kidney and over the 0.038 glidewire I advanced a 6 Lebanese by 26 cm double pigtail stent. I then pulled the 0.038 Glidewire off and the stent coiled in the kidney bladder good position. The bladder was then drained. We confirmed the position of the stent by fluoroscopy. I then used fluoroscopy to identify the stone on the right side. I then positioned the patient under the lithotripter and I used triangulation technique to identify the location of the stone and then I made sure that the stone was engaged in the F2 focal point of F2 Donier lithoprior machine. Once the patient was positioned appropriately and the stone was identified and placed in the F2 focal point of the lithotripter machine I then proceeded with shockwave lithotripsy. In the beginning the shockwave was delivered at a rate of 90 shocks per minute, anesthesia monitored the EKG for any ectopy. The power was slowly increased to 5 kV and subsequently at the 7 kV. I then proceeded with the treatment with shock wave therapy and around during the treatment to make sure the stone stayed in the F2 focal point during the entire treatment and after 3000 shockwaves were delivered to the stone under fluoroscopic guidance the treatment was completed. The patient was given instructions to call the office to make an a follow-up appointment with an x-ray to evaluate the success of the treatment, patient understands that its possible the stones may need another procedure. At this point the patient's anesthetic was reversed patient was extubated and taken back to the PACU in stable condition. Surgical Findings: stone treated with ESWL and stent placed Complications Complications: No Admit VTE Documentation VTE Present on Admission: No VTE Mechan Device Prophylaxis: SCD's VTE Pharm Prophylaxis ordered?: No 11/20/24 1601 Cosigner Signature (if applicable): CC: Dr. Duke Trinh MD; Dr. Nathanael Maradiaga, DO Signed Normal [facility] MR/PAT.David 11-14-2024 MR/PAT.[facility] Medical Records Department [address] [place] [address] PAT - Anesthesia 11/14/24 1134 MR#: [id number] Acct: [id number] Name: TERESA RAINEY NIDIA Rep #: [id number] : 1950 74 From: Melo Charles MD PCP: Dr. 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 When Was Last Pacemaker Check QUESTION #4 FULL TEXT: You/Your Family Experience fever (hyperthermia) with Anesthesia Last Oral Intake Last Oral intake: Last Oral Intake NPO since Meds taken in AM with sips of water? 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 Female No 11/14/24 11:02 HX of Motion Sickness No 11/14/24 11:02 HX of N/V After Surgery No 11/14/24 11:02 Non-Smoker Yes 11/14/24 11:02 Duration of Surgery greater Yes 11/14/24 11:02 than 60 minutes Number of Risk Factors 2 11/14/24 11:02 PONV Score Moderate Risk 11/14/24 11:02 Height Weight Height Weight: Anesthesia: Height Weight Height 5 ft 7 in 08/22/24 14:31 Respiratory Assessment Respiratory Assessment - pathology supervisor: Respiratory Tract Infection Hx - pathology supervisor Hx Respiratory Tract Infection No 11/14/24 11:02 STOP Sleep Apnea STOP Sleep Apnea - pathology supervisor: STOP Sleep Apnea - pathology supervisor Hx Hypertension Yes 11/14/24 11:02 Hx Sleep Apnea No 11/14/24 11:02 CPAP No 07/10/24 10:51 BIPAP Do you snore loudly (louder No 11/14/24 11:02 than talking or can be heard Do you often feel tired/ No 11/14/24 11:02 fatigued/ sleepy during daytime? Has anyone observed you stop No 11/14/24 11:02 breathing during sleep? STOP Results Negative 11/14/24 11:02 QUESTION #5 FULL TEXT : Do you snore loudly (louder than talking or can be heard through closed doors)? 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 Specify any problems Hx of Preganancy in last 3 N/A 11/14/24 11:02 Months Nurse Filling Out Transfusion NAV[facility]ET 11/14/24 11:02 Questions: Date: 11/14/24 11/14/24 11:02 Time: 11:04 11/14/24 11:02 Patient unable to answer at this time (ie. confused, unrespo /Reproduction History /Reproductive History - pathology supervisor: /Reproductive Hx- pathology supervisor Hx Now No 11/14/24 11:02 Gestational Age (in weeks): EDC: Hx Hx Para Hx Section SAB No 11/14/24 11:02 [facility] Medical History History of steroid therapy Cluster headache Syncope History of stress test Cardiology follow-up encounter Wears hearing aid Wears glasses Cancer Rash Arthritis Back pain Dietary restriction Patient uses snuff History of pain when walking History of edema BPH (benign prostatic hyperplasia) Benign essential tremor Essential hypertension Hyperlipidemia Type 2 diabetes mellitus without complication Constipation Home Medications ???Medication ???Instructions ???Recorded ???Last Taken ???Type simvastatin 10 mg tablet 10 mg PO QHS 07/29/16 07/09/24 His tory omega-3 fatty acids 1,000 mg 1,000 mg PO DAILY 11/01/1807/07/ 5 History capsule (Fish Oil Concentrate) propranolol 120 mg capsule,24 120 mg PO DAILY 11/01/18 07/10/24 History hr,extended release multivitamin 1 ea PO DAILY 05/20/19 07/09/24 H (more content not included)... Normal [facility] Abdomen/Pelvis without Conto n 11-11-2024 Abdomen/Pelvis without Cont [facility] Imaging Services [address] [place] [address] Abdomen/Pelvis without Cont MR#: [id number] Acct: [id number] Name: TERESA RAINEY Rep #: [id number] : 1950 M 74 From: Rogelio jolley MD PCP: Dr. Nathanael Maradiaga, DO Status: REG CLI Study: Abdomen/Pelvis without Cont Date of Exam: 08/02 Exam# [id number] Ordering Dr: Esthela Leo PROCEDURE: ABDOMEN/PELVIS WITHOUT CONT 11/11/2024 REASON FOR EXAM: CALCULUS OF KIDNEY Bilateral renal pain. History of prior lithotripsy. TECHNIQUE: ABDOMEN/PELVIS WITHOUT CONT Noncontrast technique limits evaluation of the abdominal and pelvic viscera. Coronal and Sagittal reconstruction series were provided. One or more dose reduction techniques were used (e.g., Automated exposure control, adjustment of the mA and/or kV according to patient size, use of iterative reconstruction technique). RADIATION DOSE SUMMARY: CTDlvol: 14.17 mGy DLP: 708.13 mGycm COMPARISON: Prior study dated January 16, 2024. FINDINGS: Lung bases: The lung bases are clear. Coronary artery calcification. Liver: Hepatomegaly. Gallbladder: Findings suggestive of sludge in the gallbladder lumen. Spleen: Normal size. Pancreas: Normal size. No surrounding inflammation. Adrenals: The adrenal glands are unremarkable. Kidneys: There is a 6.7 mm triangular calcification in the posterior midpole calyx of the left kidney. Punctate nonobstructive calculus seen in the upper pole of the left kidney. There is also evidence of a 9 mm nonobstructive calculus in the lower pole calyx of the left kidney. Nonobstructive right intrarenal calculi. There is evidence of a 9.6 mm calculus in the renal pelvis of the right ureter causing a mild degree of right hydronephrosis. Nonspecific bilateral perinephric stranding. Bladder: Unremarkable The prostate is enlarged with the indentation of the bladder base. Radiation seeds are seen within the pancreas. Bowel: Colonic diverticulosis without diverticulitis. Appendix: The appendix is thickened measuring 10.3 mm. There is evidence of tiny appendicoliths within the appendiceal lumen. Acute non complicated appendicitis should be ruled out. Lymph nodes: Unremarkable. Vasculature: Mild diffuse atherosclerotic calcifications are noted. Peritoneum / Retroperitoneum: Unremarkable Bones: Degenerative changes of the spine. CT/Abdomen/Pelvis without Cont IMPRESSION: 9.6 mm calculus in the right renal pelvis with right hydronephrosis. Nonobstructive tiny bilateral intrarenal calculi. Nonspecific bilateral perinephric stranding. Thickened and dilatation of the appendix with the at least 2 appendicoliths within its lumen. Clinical correlation recommended. Reading Location: [facility] CC: Dr. Nathanael Maradiaga DO; Esthela Leo [employer] Specialist: Signed Normal [facility] Cerv Spine 2 or 3 Viewson Cerv Spine 2 or 3 Views [facility] Imaging Services [address] [place] [address] [id number] Cerv Spine 2 or 3 Views MR#: [id number] Acct: [id number] Name: TERESA RAINEY Rep #: [id number] : 1950 M 74 From: Nathanael Moran MD PCP: Dr. Nathanael Maradiaga DO Status: DEP AMB Study: Cerv Spine 2 or 3 Views Date of Exam: 10/18/24 Exam# [id number] Ordering Dr: Alexandre Yip MD EXAM: XR Cervical Spine, 4 or 5 Views CLINICAL INDICATION: S/P CERVICAL FUSION, FOLLOW UP TECHNIQUE: Frontal, lateral and bilateral oblique views of the cervical spine. COMPARISON: No relevant prior studies available. FINDINGS: VERTEBRAE: Mild reversal cervical spine lordosis. Moderate endplate degenerative changes of the 2 to C7. No acute fracture. DISC SPACES: Anterior fusion of C4-C6 with disc spaces. SOFT TISSUES: Unremarkable. RAD/Cerv Spine 2 or 3 Views IMPRESSION: Postoperative changes as above. Reading Location: [facility] CC: Dr. Alexandre Yip MD; Dr. Nathanael Maradiaga DO [employer] Specialist: Signed Normal [facility] Orthopedic Visit Reporton Orthopedic Visit Report [facility] [address] [place] [address] OFFICE VISIT Date of Service: 10/18/24 MR#: [id number] Acct: [id number] Name: TERESA RAINEY Rep #: [id number] : 1950 Provider: Dr. Alexandre Yip MD Age/Sex: 74/M Location[place] [email or web address] Status: Signed Intake Vital Signs 08/22/24 14:31 Height 5 ft 7 in Weight: 213 lb BMI 33.3 Intake Visit Reasons: CERVICAL SPINE Chief Complaint: 90 day post op cervical spine Is patient in pain?: Yes (cervical spine ) Pain scale (1-10): 2 Allergies amoxicillin Allergy (Verified 10/18/24 13:04) Hives Penicillins Allergy (Verified 10/18/24 13:04) Hives tramadol Adverse Reaction (Severe, Verified 10/18/24 13:04) Other Medications ???Medication ???Instructions ???Recorded ???Confirmed ???Type simvastatin 10 mg tablet 10 mg PO QHS 07/29/16 10/18/24 His tory omega-3 fatty acids 1,000 mg 1,000 mg PO DAILY 11/01/18 5 History capsule (Fish Oil Concentrate) propranolol 120 mg capsule,24 120 mg PO DAILY 11/01/18 10/18/24 History hr,extended release multivitamin 1 ea PO DAILY 05/20/19 10/18/24 Hi story naphazoline 0.59608 %-pheniramine 2 drp OP PRN PRN Allergies 10/18/24 History 0.315 % eye drops diphenhydramine HCl 25 mg capsule 25 mg PO BID PRN Allergies 10/18/24 History docusate sodium 100 mg capsule 100 mg PO QHS PRN Constipation 02/2710/18/24 History glipizide 5 mg tablet 7.5 mg PO QHS 12/02/22 10/18/24 Hi story finasteride 5 mg tablet 5 mg PO QDAY 04/09/24 10/18/24 His tory hydralazine 10 mg tablet 10 mg PO BID 04/09/24 10/18/24 His tory coenzyme Q10 100 mg capsule (Co 200 mg PO DAILY 06/26/24 10/18/24 History Q-10) glipizide 5 mg tablet 5 mg PO DAILY 06/26/24 10/18/24 Hi story losartan 100 mg tablet 100 mg PO DAILY 06/26/24 10/18/24 History metformin 1,000 mg tablet 1,000 mg PO BID 06/26/24 10/18/24 History vitamin B12 1,000 mcg-folic acid 1 tab sublingual DAILY 06/26/24 History 400 mcg sublingual tablet sennosides 8.6 mg capsule (senna) 8.6 mg PO BID PRN constipation #3 0 07/11/24 10/18/24 Rx caps Have you fallen in the past year?: Yes PFSH Medical History History of steroid therapy Cluster headache Syncope History of stress test Cardiology follow-up encounter Wears hearing aid Wears glasses Cancer Rash Arthritis Back pain Dietary restriction Patient uses snuff History of pain when walking History of edema BPH (benign prostatic hyperplasia) Benign essential tremor Essential hypertension Hyperlipidemia Type 2 diabetes mellitus without complication Constipation Surgical History Hx of right cataract extraction Hx of left cataract extraction Hx of colonoscopy History of excision of lesion Hx of transurethral resection of prostate History of cystoscopy History of lithotripsy History of incision and drainage History of fusion of cervical spine History of tonsillectomy Family History Father Colon cancer CVA (cerebral vascular accident) Mother Cancer Son Hypertension Social History Smoking Status: Never smoker alcohol intake: current substance use type: does not use caffeine: Yes Type: carbonated beverages Number of servings: 2 HPI CERVICAL SPINE Details: This documentation accurately reflects the service provided and the decisions made by me, Dr. Alexandre Yip MD 10/18/24 7319. Part of today???s visit was documented by Esthela Arellano RN acting as scribe. TERESA RAINEY is a 74 year old M here today for 3 month post op post op C4-6 ACDF, dos 07/10/24. He reports healing has been going well. He does not have any issues doing his daily activities, his pain is minimal if any. He is still doing PT which he reports is going well. He denies dysphagia. His balance is still off but it is improving with PT. He is stil using the bone stimulator. The patient is a 74-year-old male presenting with post-surgical follow-up after spinal surgery. He underwent spinal surgery and has been recovering over the past three months, initially with a 16- pound weight restriction that has now been lifted. The patient reports balance issues, which are being addressed in physical therapy, and he continues to attend sessions to improve balance and strength. He has a history of sciatic nerve pain, previously managed with an injection between the lumbar and sacral regions, providing relief with no new symptoms currently. The patient experiences occasional raspy voice, possibly related to allergies or dry throat, with c (more content not included)... Normal [facility] CNOVon 09-13-2024 CNOV Office Visit (GENSWS ) TERESA RAINEY ([id number]) 1950 M Date Time Provider Department 09/13/24 3:00 PM KARLY ALVARADO GENSWS During your visit today, we recorded the following information about you: Karly Alvarado APRN.CNP 09/13/2024 3:08 PM Signed FOLLOW UP VISIT - ENDOSCOPY Teresa Rainey 1950 [id number] REFERRING PHYSICIAN: No referring provider defined for this encounter. Teresa Rainey is a patient I am following for screening colonoscopy- hx of polyps AND family hx of colon cancer in father. Dr. Lima performed lower endoscopy on 09/06/24. The patient was found to have Impression: - One small (4-6 mm) polyp in the ascending colon, removed with a cold snare. Resected and retrieved. - The examined portion of the ileum was normal. - Non-bleeding internal hemorrhoids. - The examination was otherwise normal. Pathology demonstrated: FINAL DIAGNOSIS A. Ascending colon polyp, biopsy: - Tubular adenoma. G/lacho 09/09/2024 The patient notes no complaints since the procedure. VITALS: There were no vitals taken for this visit. General: patient is alert, cooperative, pleasant and in no acute distress On examination, the abdomen is benign. Assessment ASSESSMENT/PLAN: 1. Adenomatous polyp - ICD9: 229.9, ICD10: D36.9 The operative findings and pathology report were reviewed with the patient, and the patient has had the opportunity to ask questions and have questions answered. If the patient notes any problems or changes in bowel function, the patient should contact me immediately. Otherwise I recommend follow up endoscopy in 5 years. HM updated. Discussed treatment plan and patient voices understanding. Patient's questions answered appropriately. Medications and potential side effects were discussed and patient voices understanding. Return to the office as scheduled or as needed for worsening/no improvement. ____ Karly Alvarado APRN.TODD Allergies As of Date: 09/13/2024 Noted Allergy Reaction AMOXICILLIN 08/12/2024 4 - Hives 7 - Swelling PENICILLINS 11/15/2008 4 - Hives TRAMADOL 09/06/2024 14 - Other: See Comments Comments: hallucinations Date Reviewed: 09/13/2024 Reviewed by: Karly Alvarado APRN.POWER PRESS TENDER - Fully Assessed Reason for Visit: Follow Up [171] Cmt: Follow up from colonoscopy. Primary Visit Diagnosis:Adenomatous polyp [D36.9] Prescriptions as of 09/13/2024 - oxyCODONE IR (ROXICODONE) 10 mg tab Take 10 mg by mouth as needed for pain. - glipiZIDE (GLUCOTROL) 5 mg tablet Take 5 mg by mouth two times a day before meals. - hydrALAZINE (APRESOLINE) 10 mg tablet Take 10 mg by mouth three times a day. - finasteride (PROSCAR) 5 mg tablet Take 5 mg by mouth once daily. - cyclobenzaprine (FLEXERIL) 10 mg tablet Take 10 mg by mouth three times a day as needed. - losartan (COZAAR) 50 mg tablet - propranolol ER (INDERAL LA) 120 mg 24 hr capsule - metFORMIN (GLUCOPHAGE) 1,000 mg tablet - mecobalamin (B12 ACTIVE ORAL) Take by mouth. - multivitamin (MULTI-DAY ORAL) Take by mouth. - simvastatin (ZOCOR) 10 mg tablet Take 10 mg by mouth daily at bedtime. - diphenhydrAMINE (BENADRYL ALLERGY) 25 mg tablet Take 25 mg by mouth every 6 hours as needed. - Fish Oil-[place]-3 Fatty Acids (FISH OIL) 340-1,000 mg cap Take 1 capsule by mouth three times daily. Problem List As Of Date 09/13/2024 Noted Resolved Family history of colon cancer [Z80.0] 06/02/2014 Mixed hyperlipidemia [E78.2] 08/03/2021 History of colonic polyps [Z86.0100] 09/06/2024 Screen for colon cancer [Z12.11] 09/06/2024 Encounter Status:Closed by KARLY ALVARADO on 09/13/24 [facility] [id number] 09-06-2024 [id number] HNO ID: [id number] Author: MEME BROWER RN Service: ? Author Type: Registered Nurse Type: [id number] Filed: 09/06/2024 10:12 Note Text: The patient received a copy of Colonoscopy discharge instructions that contain information for how to contact the physician who performed the procedure and when to seek medical care. Normal [facility] Colonoscopyon 09-06-2024 [facility] Patient Name: Teresa Rainey Procedure Date: 09/06/2024 9:22 AM Date of : 1950 Admit Type: Outpatient Age: 74 Gender: Male Note Status: Finalized Procedure: Colonoscopy Indications: High risk colon cancer surveillance: Personal history of adenomatous colonic polyps Providers: Minh Gerber MD Patient Profile: This is a 74 year old male. Refer to note in patient chart for documentation of history and physical. Last Colonoscopy: September 2021. Referring Physician: Karly Alvarado (Referring MD) Medicines: Fentanyl 50 micrograms IV, Midazolam 5 mg IV, Diphenhydramine 50 mg IV Complications: No immediate complications. Estimated blood loss: Minimal. Requesting Provider: Procedure: Pre-Anesthesia Assessment: - Prior to the procedure, a History and Physical was performed, and patient medications and allergies were reviewed. The patient's tolerance of previous anesthesia was also reviewed. The risks and benefits of the procedure and the sedation options and risks were discussed with the patient. All questions were answered, and informed consent was obtained. Prior Anticoagulants: The patient has taken no anticoagulant or antiplatelet agents. ASA Grade Assessment: III - A patient with severe systemic disease. After reviewing the risks and benefits, the patient was deemed in satisfactory condition to undergo the procedure. After I obtained informed consent, the scope was passed under direct vision. Throughout the procedure, the patient's blood pressure, pulse, and oxygen saturations were monitored continuously. The Colonoscope was introduced through the anus and advanced to 3 cm into the ileum. The colonoscopy was performed without difficulty. The patient tolerated the procedure well. The quality of the bowel preparation was adequate to identify polyps greater than 5 mm in size. The terminal ileum, ileocecal valve, appendiceal orifice, and rectum were photographed. Moderate Sedation: The administration of moderate sedation was initiated at 09:34. Moderate (conscious) sedation was personally administered by the endoscopist. The following parameters were monitored: oxygen saturation, heart rate, blood pressure, respiratory rate, EKG, adequacy of pulmonary ventilation, and response to care. Total physician intraservice time was 19 minutes. Findings: The perianal and digital rectal examinations were normal. A small (4-6 mm) polyp was found in the ascending colon. The polyp was sessile. The polyp was removed with a cold snare. Resection and retrieval were complete. The terminal ileum appeared normal. Non-bleeding internal hemorrhoids were found during retroflexion. The hemorrhoids were mild and small. The exam was otherwise without abnormality. Impression: - One small (4-6 mm) polyp in the ascending colon, removed with a cold snare. Resected and retrieved. - The examined portion of the ileum was normal. - Non-bleeding internal hemorrhoids. - The examination was otherwise normal. Recommendation: - Patient has a contact number available for emergencies. The signs and symptoms of potential delayed complications were discussed with the patient. Return to normal activities tomorrow. Written discharge instructions were provided to the patient. - Resume previous diet. - Continue present medications. - Await pathology results. - Repeat colonoscopy in 5 years for surveillance. - Return to referring provider at appointment to be scheduled. Procedure Code(s): --- Professional --- 57210, Colonoscopy, flexible; with removal of tumor(s), polyp(s), or other lesion(s) by snare technique G0500, Moderate sedation services provided by the same physician or other qualified health healthcare management performing a gastrointestinal endoscopic service that sedation supports, requiring the presence of an independent trained observer to assist in the monitoring of the patient's level of consciousness and physiological status; initial 15 minutes of intra-service time; patient age 5 years or older (additional time may be reported with 35288, as appropriate) Diagnosis Code(s): --- Professional --- Z12.11, Encounter for screening for malignant neoplasm of colon Z86.0101, Personal history of adenomatous and serrated colon polyps D12.2, Benign neoplasm of ascending colon K64.8, Other hemorrhoids CPT copyright 2020 [employer]. All rights reserved. The codes documented in this report are preliminary and upon retail pricing coordinator review may be revised to meet current compliance requirements. Attending Participation: I personally performed the entire procedure. Scope In: 9:40:22 AM Scope Out: 9:53:47 AM MD Minh Spear MD 09/06/2024 9:57:38 AM This report has been signed electronically by Minh Gerber MD Number of Addenda: 0 Note Initiated On: 09/06 (more content not included)... Normal [facility] Colonoscopy Study observatio non 09-06-2024 [facility] Gastrointestinal Endoscopy Patient Name: Teresa Rainey Procedure Date: 09/06/2024 9:22 AM Date of : 1950 Admit Type: Outpatient Age: 74 Gender: Male Note Status: Finalized Procedure: Colonoscopy Indications: High risk colon cancer surveillance: Personal history of adenomatous colonic polyps Providers: Minh Gerber MD Patient Profile: This is a 74 year old male. Refer to note in patient chart for documentation of history and physical. Last Colonoscopy: September 2021. Referring Physician: Karly Alvarado (Referring MD) Medicines: Fentanyl 50 micrograms IV, Midazolam 5 mg IV, Diphenhydramine 50 mg IV Complications: No immediate complications. Estimated blood loss: Minimal. Requesting Provider: Procedure: Pre-Anesthesia Assessment: - Prior to the procedure, a History and Physical was performed, and patient medications and allergies were reviewed. The patient's tolerance of previous anesthesia was also reviewed. The risks and benefits of the procedure and the sedation options and risks were discussed with the patient. All questions were answered, and informed consent was obtained. Prior Anticoagulants: The patient has taken no anticoagulant or antiplatelet agents. ASA Grade Assessment: III - A patient with severe systemic disease. After reviewing the risks and benefits, the patient was deemed in satisfactory condition to undergo the procedure. After I obtained informed consent, the scope was passed under direct vision. Throughout the procedure, the patient's blood pressure, pulse, and oxygen saturations were monitored continuously. The Colonoscope was introduced through the anus and advanced to 3 cm into the ileum. The colonoscopy was performed without difficulty. The patient tolerated the procedure well. The quality of the bowel preparation was adequate to identify polyps greater than 5 mm in size. The terminal ileum, ileocecal valve, appendiceal orifice, and rectum were photographed. Moderate Sedation: The administration of moderate sedation was initiated at 09:34. Moderate (conscious) sedation was personally administered by the endoscopist. The following parameters were monitored: oxygen saturation, heart rate, blood pressure, respiratory rate, EKG, adequacy of pulmonary ventilation, and response to care. Total physician intraservice time was 19 minutes. Findings: The perianal and digital rectal examinations were normal. A small (4-6 mm) polyp was found in the ascending colon. The polyp was sessile. The polyp was removed with a cold snare. Resection and retrieval were complete. The terminal ileum appeared normal. Non-bleeding internal hemorrhoids were found during retroflexion. The hemorrhoids were mild and small. The exam was otherwise without abnormality. Impression: - One small (4-6 mm) polyp in the ascending colon, removed with a cold snare. Resected and retrieved. - The examined portion of the ileum was normal. - Non-bleeding internal hemorrhoids. - The examination was otherwise normal. Recommendation: - Patient has a contact number available for emergencies. The signs and symptoms of potential delayed complications were discussed with the patient. Return to normal activities tomorrow. Written discharge instructions were provided to the patient. - Resume previous diet. - Continue present medications. - Await pathology results. - Repeat colonoscopy in 5 years for surveillance. - Return to referring provider at appointment to be scheduled. Procedure Code(s): --- Professional --- 57593, Colonoscopy, flexible; with removal of tumor(s), polyp(s), or other lesion(s) by snare technique G0500, Moderate s (more content not included)... PROVATION [facility] Radiology Study observation (narrative) [facility] HISTORY PHYSICALon HISTORY PHYSICAL HNO ID: [id number] Author: MINH GERBER MD Service: General Surgery Author Type: Physician Type: H&P Filed: 09/06/2024 09:31 Note Text: HISTORY AND PHYSICAL Teresa Rainey : 1950 REFERRING PHYSICIAN: Minh Gerber III [address] [facility] [address] CHIEF COMPLAINT: Patient presents with: Consult HPI: Teresa is a 73 year old male referred for endoscopy. Teresa notes due for screening colonoscopy- hx of polyps (2021). Teresa denies abdominal pain. Teresa denies diarrhea. Teresa notes constipation. -takes colace daily Teresa denies a change in bowel habits. Teresa denies melena. Teresa denies bright red blood per rectum. Teresa denies hemorrhoids. Teresa notes family history of colon issues. Father with colon cancer Teresa denies heartburn. Teresa denies dysphagia. Teresa denies a history of ulcers/ peptic ulcer disease. Nidia notes a hx of T2DM, HTN, HLD. He denies CP, SOB, dizziness, palpitations, syncope, edema, recent hospitalizations Teresa has undergone prior endoscopy. Last colonoscopy was 09/[address] Gerber at [facility]. Sedation:Fentanyl 50 micrograms IV, Midazolam 4 mg IV, Diphenhydramine 50 mg IV Impression: - Five medium polyps in the descending colon and in the transverse colon, removed with a hot snare. Resected and retrieved. - Diverticulosis in the sigmoid colon. - Non-bleeding internal hemorrhoids. - The examination was otherwise normal. FINAL DIAGNOSIS A. Colon, transverse, polyp x2, polypectomy: - Fragments of tubular adenoma. B. Colon, descending, polyp x3, polypectomy: - Fragments of tubular adenoma. CURRENT MEDICATIONS Current Outpatient Medications Medication Sig glipiZIDE (GLUCOTROL) 5 mg tablet Take 5 mg by mouth two times a day before meals. hydrALAZINE (APRESOLINE) 10 mg tablet Take 10 mg by mouth three times a day. finasteride (PROSCAR) 5 mg tablet Take 5 mg by mouth once daily. cyclobenzaprine (FLEXERIL) 10 mg tablet Take 10 mg by mouth three times a day as needed. losartan (COZAAR) 50 mg tablet propranolol ER (INDERAL LA) 120 mg 24 hr capsule metFORMIN (GLUCOPHAGE) 1,000 mg tablet mecobalamin (B12 ACTIVE ORAL) Take by mouth. multivitamin (MULTI-DAY ORAL) Take by mouth. simvastatin (ZOCOR) 10 mg tablet Take 10 mg by mouth daily at bedtime. diphenhydrAMINE (BENADRYL ALLERGY) 25 mg tablet Take 25 mg by mouth every 6 hours as needed. Fish Oil-[place]-3 Fatty Acids (FISH OIL) 340-1,000 mg cap Take 1 capsule by mouth three times daily. peg 3350-Electrolytes (GOLYTELY) 236-22.74-6.74 -5.86 gram suspension Take 4,000 mL by mouth one time only for 1 dose. Refer to printed prep instructions from your provider. No current facility-administered medications for this visit. ALLERGIES: Amoxicillin and Penicillins PAST MEDICAL HISTORY PAST MEDICAL HISTORY Diagnosis Date Allergic rhinitis, cause unspecified Cervical disc disorder Diabetes (HCC) Family history of malignant neoplasm of gastrointestinal tract Kidney stones Mixed hyperlipidemia Other and unspecified hyperlipidemia Unspecified constipation Unspecified essential hypertension PAST SURGICAL HISTORY PAST SURGICAL HISTORY Procedure Laterality Date BACK SURGERY HX COLONOSCOPY 09/09/2021 repeat in 3 years-multiple polyps COLONOSCOPY FLX DX W/COLLJ SPEC WHEN PFRMD 11/27/2008 COLONOSCOPY FLX DX W/COLLJ SPEC WHEN PFRMD 05/26/2014 Repeat 2019 CYSTOSCOPY,URETEROSCOPY ,LITHOTRIPSY 2008 LITHOTRIPSY XTRCORP SHOCK WAVE 2008 Lithotripsy X2 PAST SURGICAL HISTORY OF 1988 CERVICAL DISECTOMY SKIN BIOPSY HX TONSILLECTOMY PRIMARY/SECONDARY Tonsillectomy FAMILY HISTORY FAMILY HISTORY Problem Relation Age of Onset Cancer Mother Colon Cancer Father Colon Cancer Paternal Aunt Colon Cancer Paternal Uncle other (CROHN'S) Other SOCIAL HISTORY Social History Tobacco Use Smoking status: Never Smokeless tobacco: Current Types: Snuff Vaping Use Vaping status: Never Used Substance Use Topics Alcohol use: Yes Comment: Occasionally Drug use: No PHYSICAL EXAMINATION: General: The patient is 73 year old, male well nourished, well hydrated in no acute distress. The patient is oriented to time, place, and person. VITALS: Blood pressure 152/79, pulse 82, height 167.6 cm (5' 6"), weight 96.6 kg (213 lb), SpO2 98%. Body mass index is 34.38 kg/m?. HEENT: Normal cephalic, ataumatic, pupils are equally round, sclera are anicteric, mucous membranes are moist, oropharynx is clear. Neck has no masses, asymmetry or lymphadenopathy. Respiratory: Clear to auscultation and percussion. Normal respiratory excursion and pattern. Cardiac: Examination is regular rate and rhythm. Normal S1/S2 Abdominal exam: Soft, nontender, with no palpable masses. No hepatosplenomegaly. No palpable hernias. Extremities: no clubbing, cyanosis or edema. No adenopathy. LABORATORY VALUES: As Noted RADIOLOGIC STUDIES: As (more content not included)... Normal [facility] Pathology biopsy report Raymond (Tiss)on 09-06-2024 AP DISCLAIMER Normal [facility] Comment on above: Order Comment: Speci men Type: TISSUE SPECIMEN Ordering Facility: [facility] Address: [address] [place] [address] Result Comment: Raffi lawrence Developed Test (LDT) Disclaimer: Performance characteristics of immunohistochemical, immunofluorescent, and chromogenic in-situ hybridization tests have been determined by the performing laboratory within [facility]'s [facility] Laboratory Medicine Department ([facility], [facility], [facility], [facility], [facility], or [facility]) in a manner consistent with CLIA requirements. One or more of these tests may not have been cleared or approved by the FDA. [facility] is regulated under CLIA as qualified to perform high-complexity testing. These tests are used for clinical purposes. These should not be regarded as investigational or for research. Positive and negative controls stain appropriately. Performed By: #### 6 6121-5 #### [facility] CLIA [id number] [address] [place] [address] [place] [facility] CLIA [id number] [address] [place] [address] [place] CASE REPORT Normal [facility] Comment on above: Order Comment: Speci men Type: TISSUE SPECIMEN Ordering Facility: [facility] Address: [address] [place] [address] Result Comment: Surg ical Pathology Report Case: [id number] Authorizing Provider: Minh Gerber MD Collected: 09/06/2024 09:47 AM Ordering Location: Ambulatory Surgery Received: 09/06/2024 01:55 PM Pathologist: Jordin Bryant MD Specimen: Colon, Ascending Polyp Performed By: #### 6 6121-5 #### [facility] CLIA [id number] [address] [place] [address] [place] [facility] CLIA [id number] [address] [place] [address] [place] FINAL DIAGNOSIS Normal [facility] Comment on above: Order Comment: Speci men Type: TISSUE SPECIMEN Ordering Facility: [facility] Address: [address] [place] [address] Result Comment: A. A scending colon polyp, biopsy: - Tubular adenoma. JRG/lacho 09/09/2024 at 0944 EDT Performed By: #### 6 6121-5 #### [facility] CLIA [id number] [address] [place] [address] [place] [facility] CLIA [id number] [address] [place] [address] [place] FINAL PERFORMING LAB Normal [facility] Comment on above: Order Comment: Speci men Type: TISSUE SPECIMEN Ordering Facility: [facility] Address: [address] [place] [address] Result Comment: Diag nostic interpretation performed at: [facility], [address] [place], [place] [id number] CLIA# [id number] Front Office Supervisor: Luis Bell MD Performed By: #### 6 6121-5 #### [facility] CLIA [id number] [address] [place] [address] [place] [facility] CLIA [id number] [address] [place] [address] [place] GROSS DESCRIPTION Normal [facility] Comment on above: Order Comment: Speci men Type: TISSUE SPECIMEN Ordering Facility: [facility] Address: [address] [place] [address] Result Comment: A. C olon, Ascending Polyp Received in formalin are multiple pieces of humphreys, soft tissue aggregating to 2.0 x 0.2 x 0.1 cm. Totally submitted in one cassette. [place] [address] FFS 09/06/2024 11:44 PM Performed By: #### 6 6121-5 #### [facility] CLIA [id number] [address] [place] [address] OF [facility] CLIA [id number] [address] [place] [address] OF [place] Cerv Spine 2 or 3 Viewson Cerv Spine 2 or 3 Views [facility] Imaging Services [address] [place] [address] [id number] Cerv Spine 2 or 3 Views MR#: [id number] Acct: [id number] Name: TERESA RAINEY Rep #: [id number] : 1950 M 74 From: Crescencio Puckett MD PCP: Dr. Nathanael Maradiaga, Status: DEP AMB Study: Cerv Spine 2 or 3 Views Date of Exam: 08/22/24 Exam# [id number] Ordering Dr: Florina Metz PROCEDURE: CERV SPINE 2 OR 3 VIEWS 08/22/2024 REASON FOR EXAM: STATUS POST FUSION TECHNIQUE: 2 views of the cervical spine. COMPARISON: 07/25/2024 FINDINGS: Cervical spine is visualized on the lateral view from the skull base to C6. Anterior cervical disc fusion with intervertebral disc spacers C4 through C6 appears intact and anatomic. No prevertebral soft tissue swelling. No fracture or malalignment identified. Multilevel anterior osteophyte formation again noted. C3 through C5 bilateral hypertrophic facet degenerative changes. Bilateral carotid calcification suggested. Visualized apices appear clear. Cervical collar no longer present. RAD/Cerv Spine 2 or 3 Views IMPRESSION: Anterior cervical disc fusion with intervertebral disc spacers C4 through C6 appears intact and anatomic. Reading Location: [id number] CC: ANABELLA Warren; Dr. Nathanael Maradiaga DO [employer] Specialist: Signed Normal [facility] Orthopedic Visit Reporton Orthopedic Visit Report [facility] [address] [place] [address] [place] [address] OFFICE VISIT Date of Service: 08/22/24 MR#: [id number] Acct: [id number] Name: TERESA RAINEY Rep #: [id number] : 1950 Provider: ANABELLA Warren Age/Sex: 74/M Location[facility] Status: Signed Intake Vital Signs 04/09/24 12:56 07/10/24 13:51 08/22/24 14:31 Height 5 ft 6 in 5 ft 7 in 5 ft 7 in Weight: 213 lb BMI 33.3 Intake Visit Reasons: cervical spine Chief Complaint: 1 month post op Accompanied by: Is patient in pain?: Yes Pain scale (1-10): 3 Allergies amoxicillin Allergy (Verified 08/22/24 14:34) Hives Penicillins Allergy (Verified 08/22/24 14:34) Hives tramadol Adverse Reaction (Severe, Verified 08/22/24 14:34) Other Medications ???Medication ???Instructions ???Recorded ???Confirmed ???Type simvastatin 10 mg tablet 10 mg PO QHS 07/29/16 08/22/24 His tory omega-3 fatty acids 1,000 mg 1,000 mg PO DAILY 11/01/18 5 History capsule (Fish Oil Concentrate) propranolol 120 mg capsule,24 120 mg PO DAILY 11/01/18 08/22/24 History hr,extended release multivitamin 1 ea PO DAILY 05/20/19 08/22/24 Hi story naphazoline 0.44045 %-pheniramine 2 drp OP PRN PRN Allergies 08/22/24 History 0.315 % eye drops diphenhydramine HCl 25 mg capsule 25 mg PO BID PRN Allergies 08/22/24 History docusate sodium 100 mg capsule 100 mg PO QHS PRN Constipation 02/2708/22/24 History glipizide 5 mg tablet 7.5 mg PO QHS 12/02/22 08/22/24 Hi story finasteride 5 mg tablet 5 mg PO QDAY 04/09/24 08/22/24 His tory hydralazine 10 mg tablet 10 mg PO BID 04/09/24 08/22/24 His tory coenzyme Q10 100 mg capsule (Co 200 mg PO DAILY 06/26/24 08/22/24 History Q-10) glipizide 5 mg tablet 5 mg PO DAILY 06/26/24 08/22/24 Hi story losartan 100 mg tablet 100 mg PO DAILY 06/26/24 08/22/24 History metformin 1,000 mg tablet 1,000 mg PO BID 06/26/24 08/22/24 History vitamin B12 1,000 mcg-folic acid 1 tab sublingual DAILY 06/26/24 History 400 mcg sublingual tablet meloxicam 15 mg tablet 15 mg PO QDAY #30 tabs 07/11/24 Rx methocarbamol 500 mg tablet 500 - 750 mg (1 - 1.5 x 500 mg) PO 07/11/24 08/22/24 Rx TID PRN pain/spasms #60 tabs sennosides 8.6 mg capsule (senna) 8.6 mg PO BID PRN constipation #3 0 07/11/24 08/22/24 Rx caps hydrocodone-acetaminoph en 5-325mg 1 tab PO Q6 PRN pain 07/25/24 History 5mg-325mg Have you fallen in the past year?: No [facility] Medical History History of steroid therapy Cluster headache Syncope History of stress test Cardiology follow-up encounter Wears hearing aid Wears glasses Cancer Rash Arthritis Back pain Dietary restriction Patient uses snuff History of pain when walking History of edema BPH (benign prostatic hyperplasia) Benign essential tremor Essential hypertension Hyperlipidemia Type 2 diabetes mellitus without complication Constipation Surgical History Hx of right cataract extraction Hx of left cataract extraction Hx of colonoscopy History of excision of lesion Hx of transurethral resection of prostate History of cystoscopy History of lithotripsy History of incision and drainage History of fusion of cervical spine History of tonsillectomy Family History Father Colon cancer CVA (cerebral vascular accident) Mother Cancer Son Hypertension Social History Smoking Status: Never smoker alcohol intake: current substance use type: does not use caffeine: Yes Type: carbonated beverages Number of servings: 2 HPI cervical spine Details: This documentation accurately reflects the service provided and the decisions made by me, ANABELLA Warren 08/22/24 1431. Part of today???s visit was documented by Nathaniel Her MA, acting as scribe. TERESA RAINEY is a 74 year old M here today for a 6 week post op. Patient states that physical therapy is going okay. He states that he doesn't think it's doing or improving any thing. Patient states that he hasn't seen much improvement with balance. Patient continues to ambulate with a cane and says that he has been using this for several years at this point. He states that his pain is about the same as last times. He doesn't have a lot of nerve pain when he did. The patient continues to be in physical therapy and has several weeks left. Says that this has been going well. Patient denies any dysphagia. The patient is no longer wearing the collar. Ortho Exam General General: (more content not included)... Normal [facility] CNOVon 08-12-2024 CNOV Office Visit (GENSWS ) TERESA RAINEY ([id number]) 1950 M Date Time Provider Department 08/12/24 2:30 PM JENNY KARLY ELIAS During your visit today, we recorded the following information about you: Pulse Blood pressure Weight Height 82/minute 152/79 96.6 kg 1.676 m Karly Alvarado APRN.POWER PRESS TENDER 08/12/2024 2:53 PM Signed HISTORY AND PHYSICAL Teresa Rainey : 1950 REFERRING PHYSICIAN: Minh Gerber III [address] [facility] [address] CHIEF COMPLAINT: Patient presents with: Consult HPI: Teresa is a 73 year old male referred for endoscopy. Teresa notes due for screening colonoscopy- hx of polyps (2021). Teresa denies abdominal pain. Teresa denies diarrhea. Teresa notes constipation. -takes colace daily Teresa denies a change in bowel habits. Teresa denies melena. Teresa denies bright red blood per rectum. Teresa denies hemorrhoids. Teresa notes family history of colon issues. Father with colon cancer Teresa denies heartburn. Teresa denies dysphagia. Teresa denies a history of ulcers/ peptic ulcer disease. Nidia notes a hx of T2DM, HTN, HLD. He denies CP, SOB, dizziness, palpitations, syncope, edema, recent hospitalizations Teresa has undergone prior endoscopy. Last colonoscopy was 09/[address] Gerber at [facility]. Sedation:Fentanyl 50 micrograms IV, Midazolam 4 mg IV, Diphenhydramine 50 mg IV Impression: - Five medium polyps in the descending colon and in the transverse colon, removed with a hot snare. Resected and retrieved. - Diverticulosis in the sigmoid colon. - Non-bleeding internal hemorrhoids. - The examination was otherwise normal. FINAL DIAGNOSIS A. Colon, transverse, polyp x2, polypectomy: - Fragments of tubular adenoma. B. Colon, descending, polyp x3, polypectomy: - Fragments of tubular adenoma. Current Outpatient Medications Medication Sig glipiZIDE (GLUCOTROL) 5 mg tablet Take 5 mg by mouth two times a day before meals. hydrALAZINE (APRESOLINE) 10 mg tablet Take 10 mg by mouth three times a day. finasteride (PROSCAR) 5 mg tablet Take 5 mg by mouth once daily. cyclobenzaprine (FLEXERIL) 10 mg tablet Take 10 mg by mouth three times a day as needed. losartan (COZAAR) 50 mg tablet propranolol ER (INDERAL LA) 120 mg 24 hr capsule metFORMIN (GLUCOPHAGE) 1,000 mg tablet mecobalamin (B12 ACTIVE ORAL) Take by mouth. multivitamin (MULTI-DAY ORAL) Take by mouth. simvastatin (ZOCOR) 10 mg tablet Take 10 mg by mouth daily at bedtime. diphenhydrAMINE (BENADRYL ALLERGY) 25 mg tablet Take 25 mg by mouth every 6 hours as needed. Fish Oil-[place]-3 Fatty Acids (FISH OIL) 340-1,000 mg cap Take 1 capsule by mouth three times daily. peg 3350-Electrolytes (GOLYTELY) 236-22.74-6.74 -5.86 gram suspension Take 4,000 mL by mouth one time only for 1 dose. Refer to printed prep instructions from your provider. No current facility-administered medications for this visit. ALLERGIES: Amoxicillin and Penicillins PAST MEDICAL HISTORY Diagnosis Date Allergic rhinitis, cause unspecified Cervical disc disorder Diabetes (HCC) Family history of malignant neoplasm of gastrointestinal tract Kidney stones Mixed hyperlipidemia Other and unspecified hyperlipidemia Unspecified constipation Unspecified essential hypertension PAST SURGICAL HISTORY Procedure Laterality Date BACK SURGERY HX COLONOSCOPY 09/09/2021 repeat in 3 years-multiple polyps COLONOSCOPY FLX DX W/COLLJ SPEC WHEN PFRMD 11/27/2008 COLONOSCOPY FLX DX W/COLLJ SPEC WHEN PFRMD 05/26/2014 Repeat 2019 CYSTOSCOPY,URETEROSCOPY ,LITHOTRIPSY 2009 LITHOTRIPSY XTRCORP SHOCK WAVE 2008 Lithotripsy X2 PAST SURGICAL HISTORY OF 1988 CERVICAL DISECTOMY SKIN BIOPSY HX TONSILLECTOMY PRIMARY/SECONDARY Tonsillectomy FAMILY HISTORY Problem Relation Age of Onset Cancer Mother Colon Cancer Father Colon Cancer Paternal Aunt Colon Cancer Paternal Uncle other (CROHN'S) Other Social History Tobacco Use Smoking status: Never Smokeless tobacco: Current Types: Snuff Vaping Use Vaping status: Never Used Substance Use Topics Alcohol use: Yes Comment: Occasionally Drug use: No PHYSICAL EXAMINATION: General: The patient is 73 year old, male well nourished, well hydrated in no acute distress. The patient is oriented to time, place, and person. VITALS: Blood pressure 152/79, pulse 82, height 167.6 cm (5' 6"), weight 96.6 kg (213 lb), SpO2 98%. Body mass index is 34.38 kg/m?. HEENT: Normal cephalic, ataumatic, pupils are equally round, sclera are anicteric, mucous membranes are moist, oropharynx is clear. Neck has no masses, asymmetry or lymphadenopathy. Respiratory: Clear to auscultation and percussion. Normal respiratory excursion and pattern. Cardiac: Examination is regular rate and rhythm. Normal S1/S2 Abdominal exam: Soft, nontender, with no palpable masses. (more content not included)... Normal [facility] Cerv Spine 2 or 3 Viewson Cerv Spine 2 or 3 Views [facility] Imaging Services [address] [place] [address] [id number] Cerv Spine 2 or 3 Views MR#: [id number] Acct: [id number] Name: TERESA RAINEY Rep #: [id number] : 1950 M 73 From: Kevin mendoza MD PCP: Dr. Nathanael Maradiaga, Status: DEP AMB Study: Cerv Spine 2 or 3 Views Date of Exam: 07/25/24 Exam# [id number] Ordering Dr: Florina Metz PROCEDURE: CERV SPINE 2 OR 3 VIEWS 07/25/2024 REASON FOR EXAM: SP FUSION 2 WEEK POST OP TECHNIQUE: 2 views of the cervical spine. COMPARISON: Radiographs on 07/11/2024. FINDINGS: The cervical spine is visualized on the lateral view from the skull base to the mid C6 level. Status post anterior cervical disc fusion with intervertebral disc spacers C4 through C6 appears anatomic and intact. No fracture or malalignment identified. Mild prevertebral soft tissue swelling/thickening has significantly decreased. The visualized apices appear clear. RAD/Cerv Spine 2 or 3 Views IMPRESSION: No radiographic evidence of an acute abnormality. Reading Location: [facility] CC: ANABELLA Warren; Dr. Nathanael Maradiaga DO [employer] Specialist: Signed Normal [facility] Orthopedic Visit Reporton Orthopedic Visit Report [facility] [address] [place] [address] OFFICE VISIT Date of Service: 07/25/24 MR#: [id number] Acct: [id number] Name: TERESA RAINEY Rep #: [id number] : 1950 Provider: Dr. Alexandre Yip MD Age/Sex: 73/M Location[place] [facility] Status: Signed Intake Vital Signs 04/09/24 12:56 07/10/24 13:51 Height 5 ft 6 in 5 ft 7 in Intake Visit Reasons: cervical spine Allergies amoxicillin Allergy (Verified 07/25/24 13:45) Hives Penicillins Allergy (Verified 07/25/24 13:45) Hives tramadol Adverse Reaction (Severe, Verified 07/25/24 13:45) Other Medications ???Medication ???Instructions ???Recorded ???Confirmed ???Type simvastatin 10 mg tablet 10 mg PO QHS 07/29/16 07/25/24 His tory omega-3 fatty acids 1,000 mg 1,000 mg PO DAILY 11/01/18 5 History capsule (Fish Oil Concentrate) propranolol 120 mg capsule,24 120 mg PO DAILY 11/01/18 07/25/24 History hr,extended release multivitamin 1 ea PO DAILY 05/20/19 07/25/24 Hi story naphazoline 0.22714 %-pheniramine 2 drp OP PRN PRN Allergies 07/25/24 History 0.315 % eye drops diphenhydramine HCl 25 mg capsule 25 mg PO BID PRN Allergies 07/25/24 History docusate sodium 100 mg capsule 100 mg PO QHS PRN Constipation 02/2707/25/24 History glipizide 5 mg tablet 7.5 mg PO QHS 12/02/22 07/25/24 Hi story finasteride 5 mg tablet 5 mg PO QDAY 04/09/24 07/25/24 His tory hydralazine 10 mg tablet 10 mg PO BID 04/09/24 07/25/24 His tory coenzyme Q10 100 mg capsule (Co 200 mg PO DAILY 06/26/24 07/25/24 History Q-10) glipizide 5 mg tablet 5 mg PO DAILY 06/26/24 07/25/24 Hi story losartan 100 mg tablet 100 mg PO DAILY 06/26/24 07/25/24 History metformin 1,000 mg tablet 1,000 mg PO BID 06/26/24 07/25/24 History vitamin B12 1,000 mcg-folic acid 1 tab sublingual DAILY 06/26/24 History 400 mcg sublingual tablet meloxicam 15 mg tablet 15 mg PO QDAY #30 tabs 07/11/24 Rx methocarbamol 500 mg tablet 500 - 750 mg (1 - 1.5 x 500 mg) PO 07/11/24 07/25/24 Rx TID PRN pain/spasms #60 tabs sennosides 8.6 mg capsule (senna) 8.6 mg PO BID PRN constipation #3 0 07/11/24 07/25/24 Rx caps hydrocodone-acetaminoph en 5-325mg 1 tab PO Q6 PRN pain 07/25/24 History 5mg-325mg Have you fallen in the past year?: No PFSH Medical History History of steroid therapy Cluster headache Syncope History of stress test Cardiology follow-up encounter Wears hearing aid Wears glasses Cancer Rash Arthritis Back pain Dietary restriction Patient uses snuff History of pain when walking History of edema BPH (benign prostatic hyperplasia) Benign essential tremor Essential hypertension Hyperlipidemia Type 2 diabetes mellitus without complication Constipation Surgical History Hx of right cataract extraction Hx of left cataract extraction Hx of colonoscopy History of excision of lesion Hx of transurethral resection of prostate History of cystoscopy History of lithotripsy History of incision and drainage History of fusion of cervical spine History of tonsillectomy Family History Father Colon cancer CVA (cerebral vascular accident) Mother Cancer Son Hypertension Social History Smoking Status: Never smoker alcohol intake: current substance use type: does not use caffeine: Yes Type: carbonated beverages Number of servings: 2 HPI cervical spine Details: This documentation accurately reflects the service provided and the decisions made by me, Dr. Alexandre Yip MD 07/25/24 1837. Part of today???s visit was documented by Magi HUITRON, acting as scribe. TERESA RAINEY is a 73 year old M here today for 2 week post op, cervical spine, dos 07/10/24. Patient is doing good but initially after surgery he was having a lot of pain but it is slowly getting better. Patient is taking the oxycodone, meloxicam and methocarbamol for pain. He did have nerve pain across the top of his shoulder that stops at the bicep but this has gotten pain. He has been having some trouble swallowing with food and medication getting stuck. He has been having to cut some of his medication into pieces to be able to swallow them and he has been trying to eat softer foods. Ortho Exam General General: Yes no acute distress Neurologic: Yes alert and Yes oriented x3 Psychologic: Yes reasonable and appropriate Spine SPINE TESTING CERVICAL THORACIC LUMBAR Musculoskeletal Strength 0=absent - 5=normal Details: Examination neck shows incision well-heal (more content not included)... Normal [facility] Anion gap in Serum or Plasma Ordered By: Florina Metz on 07-11-2024 Anion gap [Moles/Vol] 19 mmol/L High 5-15 [facility] BUN/creatinine ratioOrdered By: Florina Metz on 07-11-2024 Urea nitrogen/Creatinine [Mass ratio] 17.0 mg/mg 10- [facility] Basic Metabolic Profile (BMP )on 07-11-2024 BUN/CRE 17.0 RATIO Normal - [facility] Comment on above: Performed By: #### L 100.0500, L500.2500 #### [facility] Laboratory [address] [place], [address] Calcium [Mass/Vol] 9.2 mg/dL Normal 7.6-11.0 [facility] Comment on above: Performed By: #### L 100.0500, L500.2500 #### [facility] Laboratory [address] [place], [address] Chloride [Moles/Vol] 100 mmol/L Normal 98-108 [facility] Comment on above: Performed By: #### L 100.0500, L500.2500 #### [facility] Laboratory [address] [place], [address] CO2 [Moles/Vol] 18.9 mmol/L Low 21.0-32.0 [facility] Comment on above: Performed By: #### L 100.0500, L500.2500 #### [facility] Laboratory [address] [place], [address] Creatinine [Mass/Vol] 1.14 mg/dL Normal 0.70-1.20 [facility] Comment on above: Performed By: #### L 100.0500, L500.2500 #### [facility] Laboratory [address] [place], [address] ECRCL 65.02 ml/min Normal 50-250 [facility] Comment on above: Performed By: #### L 100.0500, L500.2500 #### [facility] Laboratory [address] [place], [address] GAP 19 High 5-15 [facility] Comment on above: Performed By: #### L 100.0500, L500.2500 #### [facility] Laboratory [address] [place], [address] GFR/1.73 sq M.predicted among non-blacks MDRD (S/P/Bld) [Vol rate/Area] 68 mL/min/{1.73_m2} Normal >60 [facility] Comment on above: Result Comment: mL/m in/1.73m2 CKD-EPI Creatinine Equation (2020) Performed By: #### L 100.0500, L500.2500 #### [facility] Laboratory [address] [place], [address] Glucose [Mass/Vol] 199 mg/dL High 70-99 [facility] Comment on above: Performed By: #### L 100.0500, L500.2500 #### [facility] Laboratory [address] [place], [address] Potassium [Moles/Vol] 4.6 mmol/L Normal 3.3-5.1 [facility] Comment on above: Result Comment: Hemo lysis present, Results??could be affected. ?? Performed By: #### L 100.0500, L500.2500 #### [facility] [address] [place], [address] Sodium [Moles/Vol] 138 mmol/L Normal 133-145 [facility] Comment on above: Performed By: #### L 100.0500, L500.2500 #### [facility] Laboratory [address] [place], [address] Urea nitrogen [Mass/Vol] 19 mg/dL Normal 4-19 [facility] Comment on above: Performed By: #### L 100.0500, L500.2500 #### [facility] Laboratory [address] [place], [address] Bedside Glucoseon 07-11-2024 FINGERSTICK GLU 213 mg/dL High 74-106 [facility] Comment on above: Result Comment: PHILIP GEMENT OF PATIENT CARE PER NURSING PROTOCOL Performed By: #### L 501.080 #### [facility] [address] [place], [address] FINGERSTICK GLU 210 mg/dL High 74-106 [facility] Comment on above: Result Comment: PHILIP GEMENT OF PATIENT CARE PER NURSING PROTOCOL Performed By: #### L 501.080 #### [facility] [address] [place], [address] CBC-Complete Blood Cnt No Di ffon 07-11-2024 Erythrocyte distribution width (RBC) [Ratio] 12.6 % Normal 11.6-14.6 [facility] Comment on above: Performed By: #### L 100.0500, L500.2500 #### [facility] Laboratory [address] [place], [address] Hematocrit (Bld) [Volume fraction] 35.7 % Low 40-54 [facility] Comment on above: Performed By: #### L 100.0500, L500.2500 #### [facility] Laboratory [address] [place], [address] Hemoglobin (Bld) [Mass/Vol] 12.3 g/dL Low 13.0-16.5 [facility] Comment on above: Performed By: #### L 100.0500, L500.2500 #### [facility] Laboratory [address] [place], [address] MCH (RBC) [Entitic mass] 31.7 pg Normal 27.0-32.0 [facility] Comment on above: Performed By: #### L 100.0500, L500.2500 #### [facility] Laboratory [address] [place], [address] MCHC (RBC) [Mass/Vol] 34.5 g/dL Normal 32-36 [facility] Comment on above: Performed By: #### L 100.0500, L500.2500 #### [facility] Laboratory [address] [place], [address] MCV (RBC) [Entitic vol] 92.0 fL Normal 80-[address] [facility] Comment on above: Performed By: #### L 100.0500, L500.2500 #### [facility] Laboratory [address] [place], [address] Platelet mean volume (Bld) [Entitic vol] 10.8 fL Normal 6.2-12.0 [facility] Comment on above: Performed By: #### L 100.0500, L500.2500 #### [facility] Laboratory [address] [place], [address] Platelets (Bld) [#/Vol] 240 10*3/uL Normal 150-450 [facility] Comment on above: Performed By: #### L 100.0500, L500.2500 #### [facility] Laboratory [address] [place], [address] RBC (Bld) [#/Vol] 3.88 10*6/uL Low 4.6-6.2 [facility] Comment on above: Performed By: #### L 100.0500, L500.2500 #### [facility] Laboratory [address] [place], [address] RDW SD 42.1 fl Normal 35.1-43.9 [facility] Comment on above: Performed By: #### L 100.0500, L500.2500 #### [facility] Laboratory [address] [place], [address] WBC (Bld) [#/Vol] 14.4 10*3/uL High 4.4-11.0 [facility] Comment on above: Performed By: #### L 100.0500, L500.2500 #### [facility] Laboratory [address] [place], [address] Carbon dioxide, total [Moles /volume] in Central venous bloodOrdered By: Florina Metz on 07-11-2024 CO2 [Moles/Vol] 18.9 mmol/L Low 21.0-32.0 [facility] Cerv Spine 2 or 3 Viewson Cerv Spine 2 or 3 Views [facility] Imaging Services [address] [place] [address] Cerv Spine 2 or 3 Views MR#: [id number] Acct: [id number] Name: TERESA RAINEY Rep #: [id number] : 1950 M 73 From: Crescencio Puckett MD PCP: Dr. Nathanael Maradiaga DO Status: ADM SILVANO Study: Cerv Spine 2 or 3 Views Date of Exam: 07/11/24 Exam# [id number] Ordering Dr: Florina Metz PROCEDURE: CERV SPINE 2 OR 3 VIEWS 07/11/2024 REASON FOR EXAM: S/P CERVICAL FUSION TECHNIQUE: 2 views of the cervical spine. COMPARISON: Intraoperative fluoroscopic views 07/10/2024 and 05/17/2024 FINDINGS: The cervical spine is visualized on the lateral view from the skull base to the mid C6 level. Overlapping gown clips at the C6 level. Status post anterior cervical disc fusion with intervertebral disc spacers C4 through C6 appears anatomic and intact. No fracture or malalignment identified. Mild prevertebral soft tissue swelling/thickening. Left anterior neck Drake drain, safety pin and cervical collar noted. The visualized apices appear clear. RAD/Cerv Spine 2 or 3 Views IMPRESSION: Status post anterior cervical disc fusion with intervertebral disc spacers C4 through C6 appears anatomic and intact as above. No fracture or malalignment identified. Reading Location: [facility] CC: ANABELLA Warren; Dr. Nathanael Maradiaga DO [employer] Specialist: Signed Normal [facility] Chloride assayOrdered By: Valentine Metz on 07-11-2024 Chloride [Moles/Vol] 100 mmol/L 98-108 [facility] Erythrocyte distribution wid th (RBC) [Ratio]Ordered By: Florina Metz on 07-11-2024 Erythrocyte distribution width (RBC) [Entitic vol] 42.1 fL 35.1-43.9 [facility] Erythrocyte distribution wid th ratioOrdered By: Florina Metz on 07-11-2024 Erythrocyte distribution width (RBC) [Ratio] 12.6 % 11.6-14.6 [facility] Erythrocyte distribution wid th standard deviationOrdered By: Florina Metz on 07-11-2024 Erythrocyte distribution width (RBC) [Ratio] 42.1 fl 35.1-43.9 [facility] Estimation of creatinine paola aranceOrdered By: Florina Metz on 07-11-2024 Estimated Creatinine Clearance Calc 65.02 ml/min 50-250 [facility] GFR/1.73 sq M.predicted doc g non-blacks MDRD (S/P/Bld) [Vol rate/Area]Ordered By: Florina Metz on 07-11-2024 Estimated GFR (MDRD) Non-Af Amer 68 >60 [facility] Comment on above: mL/min/1.73m2 CKD-EP I Creatinine Equation (2020) Glomerular filtration rate ( GFR) estimation/1.73 sq m using serum, plasma, or whole bOrdered By: Florina Metz on 07-11-2024 GFR/1.73 sq M.predicted among non-blacks MDRD (S/P/Bld) [Vol rate/Area] 68 mL/min/{1.73_m2} >60 [facility] Comment on above: mL/min/1.73m2 CKD-EP I Creatinine Equation (2020) [facility] deOrdered By: Alexandre Yip on 07-11-2024 Bedside Glucose (Misc Panel) 213 mg/dL High 74-106 [facility] Comment on above: MANAGEMENT OF PATIEN T CARE PER NURSING PROTOCOL Glucose [Mass/Vol] 213 mg/dL High 74-106 [facility] Comment on above: MANAGEMENT OF PATIEN T CARE PER NURSING PROTOCOL Hematocrit Auto (Bld) [Volum e fraction]Ordered By: Florina Metz on 07-11-2024 Hematocrit (Bld) [Volume fraction] 35.7 % Low 40-54 [facility] Hemoglobin measurementOrdere d By: Florina Metz on 07-11-2024 Hemoglobin (Bld) [Mass/Vol] 12.3 g/dL Low 13.0-16.5 [facility] MCV (mean corpuscular volume ) determinationOrdered By: Florina Metz on 07-11-2024 MCV (RBC) [Entitic vol] 92.0 fL 80-[address] [facility] Mean corpuscular hemoglobin (MCH) determinationOrdered By: Florina Metz on 07-11-2024 MCH (RBC) [Entitic mass] 31.7 pg 27.0-32.0 [facility] Mean corpuscular hemoglobin concentration (MCHC) determinationOrdered By: Florina Metz on 07-11-2024 MCHC (RBC) [Mass/Vol] 34.5 g/dL 32-36 [facility] Mean platelet volume determi nationOrdered By: Florina Metz on 07-11-2024 Platelet mean volume (Bld) [Entitic vol] 10.8 fL 6.2-12.0 [facility] Platelet countOrdered By: Valentine Metz on 07-11-2024 Platelets (Bld) [#/Vol] 240 10*3/uL 150-450 [facility] Potassium (Unsp spec) [Mass/ Vol]Ordered By: Florina Metz on 07-11-2024 Potassium [Moles/Vol] 4.6 mmol/L 3.3-5.1 [facility] Comment on above: Hemolysis present, R esults could be affected. Potassium measurement (mass/ volume)Ordered By: Florina Metz on 07-11-2024 Potassium (Unsp spec) [Mass/Vol] 4.6 mmol/L 3.3-5.1 [facility] Comment on above: Hemolysis present, R esults could be affected. RBC Auto (Bld) [#/Vol]Ordere d By: Florina Metz on 07-11-2024 RBC (Bld) [#/Vol] 3.88 10*6/uL Low 4.6-6.2 [facility] Serum creatinine measurement (mass/volume)Ordered By: Florina Metz on 07-11-2024 Creatinine [Mass/Vol] 1.14 mg/dL 0.70-1.20 [facility] Serum glucose measurement (m ass/volume)Ordered By: Florina Metz on 07-11-2024 Glucose [Mass/Vol] 199 mg/dL High 70-99 [facility] Serum or plasma calcium jonathan urement (mass/volume)Ordered By: Florina Metz on 07-11-2024 Calcium [Mass/Vol] 9.2 mg/dL 7.6-11.0 [facility] Serum or plasma urea nitroge n measurement (mass/volume)Ordered By: Florina Metz on 07-11-2024 Urea nitrogen [Mass/Vol] 19 mg/dL 4-19 [facility] Sodium levelOrdered By: Kacy Metz on 07-11-2024 Sodium [Moles/Vol] 138 mmol/L 133-145 [facility] White blood cell (WBC) count Ordered By: Florina Metz on 07-11-2024 WBC (Bld) [#/Vol] 14.4 10*3/uL High 4.4-11.0 [facility] Bedside Glucoseon 07-10-2024 FINGERSTICK GLU 186 mg/dL High 74-106 [facility] Comment on above: Result Comment: PHILIP GEMENT OF PATIENT CARE PER NURSING PROTOCOL Performed By: #### L 501.080 #### [facility] Laboratory [address] [place] [place], [address] FINGERSTICK GLU 266 mg/dL High 74-106 [facility] Comment on above: Result Comment: PHILIP GEMENT OF PATIENT CARE PER NURSING PROTOCOL Performed By: #### L 501.080 ####[facility] [address] [place], [address] Cerv Spine 2 or 3 Viewson Cerv Spine 2 or 3 Views [facility] Imaging Services [address] [place] [address] Cerv Spine 2 or 3 Views MR#: [id number] Acct: [id number] Name: TERESA RAINEY Rep #: [id number] : 1950 M 73 From: Rogelio jolley MD PCP: Dr. Nathanael Maradiaga, DO Status: [facility] Study: Cerv Spine 2 or 3 Views Date of Exam: 07/10/24 Exam# [id number] Ordering Dr: Alexandre Yip MD PROCEDURE: Intraoperative fluoroscopic services for cervical fusion. 07/10/2024 REASON FOR EXAM: ANTERIOR FUSION C4-5 AND C5-6 TECHNIQUE: Intraoperative fluoroscopic services. 25.6 seconds of fluoroscopy. 10.92 mGy. 9 fluoroscopic images were obtained. FINDINGS: Intraoperative fluoroscopic services provided for fusion at the C4-C5 and C5-C6 levels with anterior plate and screw fixation. RAD/Cerv Spine 2 or 3 Views IMPRESSION: Intraoperative fluoroscopic services provided for fusion at the C4-C5 and C5-C6 levels with anterior plate and screw fixation device. Reading Location: [place] [address] CC: Dr. Alexandre Yip MD; Dr. Nathanael Maradiaga DO [employer] Specialist: Signed [facility] MR/POSTOP.ANE 07-10-2024 MR/POSTOP.[facility] Medical Records Department [address] [place] [address] Anesthesia Postop Eval I 07/10/24 1058 MR#: [id number] Acct: [id number] Name: TERESA RAINEY Rep #: [id number] : 1950 73 From: Chon Epps CRNA PCP: Dr. Nathanael Maradiaga, Status:REG SDC Y Race: C Location: [place] [address] Anesthesia: Postop Eval I Current Vital Signs Temperature: 98 F Pulse Rate: 75 Blood Pressure: 135/61 Respiratory Rate: 16 Pulse Ox: 97 Oxygen Delivery Method: Venturi Mask Oxygen Flow Rate (L/min): 4 Assessment Airway patent: Yes Spontaneous unlabored respirations: Yes Mental status: Asleep nausea: No Vomiting: No Anesthesia Complication: No Fluid Hydration Crystalloid volume administer (ml): 2,400 Total IV fluid infused: 2,400 Progress Note Anesthesia document: Postop Eval 1 completed: Yes 07/10/24 1059 Date Chon Epps CRNA Cosigner Signature: Date CC: Signed [facility] MR/[id number] 07-10-2024 MR/POSTOPAN2 [facility] Medical Records Department [address] [place] [address] Anesthesia Postop Eval II 07/10/24 1129 MR#: [id number] Acct: [id number] Name: TERESA RAINEY Rep #: [id number] : 1950 73 From: Jann Winston MD PCP: Dr. Nathanael Maradiaga, DO Status:REG SDC Y Race: C Location: [place] [address] Anesthesia Postop Eval I Sum Postop Eval Completion status Anesthesia document: Postop Eval 1 completed: Yes Anesthesia Postop Eval I Summary Anesthesia Postop Eval I Summary: Anesthesia Postop Eval I: Assessment Summary Airway patent Yes 07/10/24 10:59 DENTAL OFFICE [email or web address].[email or web address] Spontaneous unlabored Yes 07/10/24 10:59 DENTAL OFFICE RECEPTIONIST.PKEL respirations Mental status Asleep 07/10/24 10:59 DENTAL OFFICE RECEPTIONIST.PKEL nausea No 07/10/24 10:59 DENTAL OFFICE RECEPTIONIST.PKEL Vomiting No 07/10/24 10:59 DENTAL OFFICE RECEPTIONIST.PKEL Anesthesia Postop Eval I: Fluid Summary Crystalloid volume administer 2,400 07/10/24 10:59 DENTAL OFFICE RECEPTIONIST.PKEL (ml) Colloids volume administered ( ml) Blood Product volume administered (ml) Total IV fluid infused 2,400 07/10/24 10:59 DENTAL OFFICE RECEPTIONIST.PKEL Anesthesia Postop Eval I: Summary Notes Anesthesia Complication No 07/10/24 10:59 DENTAL OFFICE RECEPTIONIST.PKEL Anesthesia Complication Comment: Post-operative progress note Anesthesia: Postop Eval II Evaluation Mental status: Awake Pain Level: 0 nausea: No Vomiting: No 07/10/24 1129 Date Jann Winston MD Cosigner Signature: Date CC: Signed Normal [facility] Operative Reporton 5 Operative Report [facility] Medical Records Department [address] [place] [address] Operative Report 07/10/24 1044 MR#: [id number] Acct: [id number] Name: TERESA RAINEY Rep #: [id number] : 1950 73 From: Alexandre Yip MD PCP: Dr. 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, kyphosis Post-Operative Diagnosis: Same Surgery/Procedure Performed: C4-6 ACDF commutator repairer: Yes Medicaid Analyst: Florina Metz Tasks completed by circulation assistant: Closing, Removing tissue, Implanting device, Hemostasis: Electrocautery and Retracting Type of Anesthesia: General RN Documented Start/Stop Times: Operation Date: 07/10/24 07:30 Case Time Into Pre-Op 07/10/24 05:50 Out of Pre-Op 07/10/24 07:26 Anesthesia Start 07/10/24 07:30 Into Room 07/10/24 07:30 Procedure Start 07/10/24 08:10 Procedure End 07/10/24 10:35 Procedure Start Time: 08:10 Procedure Stop Time: 10:35 Select all DRAINS/GRAFTS/IMPLANTS that apply: Drains Drain details: Drake , Graft Graft details: Structural allograft cortical cancellous strut, DBX and Implanted device Implanted device details: Medtronic Glorieta Elite plate instrumentation Estimated Blood Loss: 30 cc Specimen collected: No Description of surgery: Preoperative diagnosis: C4-6 disc degeneration with stenosis, radiculomyelopathy, prior C6-7 fusion, kyphosis Postoperative diagnosis: Same Name of procedure: C4-6 anterior cervical discectomy and fusion with plate instrumentation - Anterior cervical fusion C4-5, CPT code 89659 - Anterior plate instrumentation C4-6, CPT code 76075/59 - Anterior cervical fusion C5-6, CPT code 57368/51 -C4-5 structural allograft bone with DBX, CPT code 98410 -C5-6 structural allograft bone with DBX, CPT code 56476 Attending surgeon: Alexandre Yip M.D. Anesthesia: Gen. endotracheal Estimated blood loss: 30 mL Complications: None Instrumentation used: Medtronic Glorieta Elite plate, LASR corticocancellous block Indications: The patient is a pleasant 73-year-old gentleman who presented with neck pain with radiation into upper extremities, difficulty with dexterity and balance. MRI showed prior C6-7 noninstrumented fusion with adjacent segment degeneration with reversal of cervical lordosis with apex at C5-6, C4-6 disc degeneration with central and foraminal stenosis with cord indentation without cord signal changes. In order to halt the progression of myelopathy, the patient requested surgical treatment. All risks and benefits of the procedure were explained to the patient. The risks include but are not limited to infection, bleeding, injury to nerves and vessels, vertebral artery injury, spinal cord injury, paralysis, vocal cord paralysis, injury to esophagus, pseudoarthrosis, need for further procedures, adjacent segment degeneration. Procedure: The patient was identified in the preoperative suite using unique patient identifiers. Skin was marked consent was taken and all questions were answered. The patient was then brought back to the operative room and a timeout was performed. General endotracheal anesthesia was given. Intraoperative neuro monitoring leads were applied. The patient was carefully positioned supine on a regular OR table. A lateral view with a C-arm was done to identify the level and to define the incision. The anterior neck was then prepped and draped in the usual fashion. A final timeout was then performed. A transverse skin incision was taken to the left of midline. Subcutaneous tissue was then divided with Bovie. Platysma was identified and cut along the incision with scissors. The fascial interval between the sternocleidomastoid and the larynx was developed. Omohyoid was identified and retracted. The esophagus with the larynx was retracted medially to reach the prevertebral fascia. Marker x-ray was performed with bent spinal needle and disc space and levels were confirmed. Longus coli muscle was elevated on both sides at and above and below C4-6 discs. Self-retaining retractors were then placed. A long handle knife was then used to perform annulotomy at C4-5. Disc fragments were removed with the pituitary. Morton pins were placed in C4 and C5 for disc distraction. Curettes and bur was utilized to remove cartilage from the endplates. Discectomy was performed laterally up to the uncovertebral joints. Posterior osteophytes were thinned down with the bur and adequate decompression in the central and foraminal areas were performed and PLL was thinned out. Once the disc space was prepared, trials of various sizes were utilized. Thorough irrigation was given. 7 (more content not included)... Normal [facility] Orthopedic Visit Reporton Orthopedic Visit Report [facility] [address] [place] [address] [address] [place] [address] OFFICE VISIT Date of Service: 07/04/24 MR#: [id number] Acct: [id number] Name: TERESA RAINEY Rep #: [id number] : 1950 Provider: Dr. Alexandre Yip MD Age/Sex: 73/M [place] [facility] [place]: Signed Intake Vital Signs 04/09/24 12:56 07/04/24 13:32 Height 5 ft 6 in 5 ft 6 in Weight: 218 lb 3 oz BMI 35.2 Intake Visit Reasons: cervical spine Chief Complaint: cervical spine pre-op dos 07/10/2024 Accompanied by: Is patient in pain?: Yes Pain scale (1-10): 2 Allergies amoxicillin Allergy (Verified 07/04/24 13:33) Hives Penicillins Allergy (Verified 07/04/24 13:33) Hives tramadol Adverse Reaction (Severe, Verified 07/04/24 13:33) Other Medications ???Medication ???Instructions ???Recorded ???Confirmed ???Type simvastatin 10 mg tablet 10 mg PO QHS 07/29/16 07/04/24 His tory cyclobenzaprine 10 mg tablet 10 mg PO TID PRN muscle spasm 10/0907/04/24 History omega-3 fatty acids 1,000 mg 1,000 mg PO DAILY 11/01/18 5 History capsule (Fish Oil Concentrate) propranolol 120 mg capsule,24 120 mg PO DAILY 11/01/18 07/04/24 History hr,extended release multivitamin 1 ea PO DAILY 05/20/19 07/04/24 Hi story naphazoline 0.02278 %-pheniramine 2 drp OP PRN PRN Allergies 07/04/24 History 0.315 % eye drops diphenhydramine HCl 25 mg capsule 25 mg PO BID PRN Allergies 07/04/24 History docusate sodium 100 mg capsule 100 mg PO QHS PRN Constipation 02/2707/04/24 History glipizide 5 mg tablet 7.5 mg PO QHS 12/02/22 07/04/24 Hi story oxycodone-acetaminophen 7.5 mg-325 1 tab PO Q6H PRN pain 12/02/22 0 07/04/24 History mg tablet finasteride 5 mg tablet 5 mg PO QDAY 04/09/24 07/04/24 His tory hydralazine 10 mg tablet 10 mg PO TID 04/09/24 07/04/24 His tory coenzyme Q10 100 mg capsule (Co 200 mg PO DAILY 06/26/24 07/04/24 History Q-10) glipizide 5 mg tablet 5 mg PO DAILY 06/26/24 07/04/24 Hi story losartan 100 mg tablet 100 mg PO DAILY 06/26/24 07/04/24 History metformin 1,000 mg tablet 1,000 mg PO BID 06/26/24 07/04/24 History vitamin B12 1,000 mcg-folic acid 1 tab sublingual DAILY 06/26/24 History 400 mcg sublingual tablet Have you fallen in the past year?: No PFSH Medical History History of steroid therapy Cluster headache Syncope History of stress test Cardiology follow-up encounter Wears hearing aid Wears glasses Cancer Rash Arthritis Back pain Dietary restriction Patient uses snuff History of pain when walking History of edema BPH (benign prostatic hyperplasia) Benign essential tremor Essential hypertension Hyperlipidemia Type 2 diabetes mellitus without complication Constipation Surgical History Hx of right cataract extraction Hx of left cataract extraction Hx of colonoscopy History of excision of lesion Hx of transurethral resection of prostate History of cystoscopy History of lithotripsy History of incision and drainage History of fusion of cervical spine History of tonsillectomy Family History Father Colon cancer CVA (cerebral vascular accident) Mother Cancer Son Hypertension Social History Smoking Status: Never smoker alcohol intake: current substance use type: does not use caffeine: Yes Type: carbonated beverages Number of servings: 2 HPI cervical spine Details: This documentation accurately reflects the service provided and the decisions made by me, Dr. Alexandre Yip MD 07/04/24 1327. Part of today???s visit was documented by Willow Kline [employer], acting as scribe. TERESA RAINEY is a 73 year old M here today for pre-op for anterior cervical disc fusion C4-5 and C5- 6 DOS 07/10/2024. Patient rates his pain a 2/10 today. He did have a cervical spine injection with Dr. Hines on 05/14/2024. Patient states the pain just comes and goes and since the last injection the pain has decreased. He states he is unable to sleep on the left side anymore and if he does he gets a kink in his cervical spine. 05/17/24: TERESA RAINEY is a 73 year old M here today for cervical spine MRI review. He would like to discuss results and next steps. He did receive a steroid injection in his cervical spine on Monday by Dr. Hines. 04/09/24: TERESA RAINEY is a 73 year old M here today for lumbar spine pain. Pt. presents using a cane for ambulation. He states his low back pain is at the center and describes it as a constant, tired soreness and rates it 3/10. had been experiencing sciatic nerve pain in his left quad for about (more content not included)... Normal [facility] Hepatitis A AB, Totalon 06-09 HEPATITIS A,TOT Negative Normal Negative [facility] Comment on above: Result Comment: Comm ent: The HAV total antibody assay detects both IgG and IgM but does not differentiate between them. A negative result suggests susceptibility to infection. A positive result could be due to vaccination, previously resolved infection or active infection. Testing for HAV IgM should be performed if active HAV infection is suspected. [facility] offers profiles that will automatically reflex positive HAV total antibody results to IgM (e.g., panel #[id number] HAV Antibody w/ Rfx). Performed at: [address] [id number] Product Evangelist: Kamlesh Cleveland PhD, Phone: [phone] Performed By: #### L 2768.7225, E3273.6889, L500.2500, L100.0100, L3100.0300, BTSPAT, M100.651, L3890.6202 ####[facility] [address] [place], [address] Electrocardiogram reportOrde red By: Tha Mcghee on 06-28-2024 EKG study [facility] [address] [place] [address] 12 Lead EKG 06/27/24 1254 MR#: [id number] Acct: [id number] Name: TERESA RAINEY Rep #:[id number] : 1950 73 From: Tha Mcghee MD Attending Dr: Dr. Alexandre Yip MD Status: PRE [facility] [place] Ordering Dr: Alexandre Yip MD Date: Location: [facility] [place] Sex: M C Admitted: Test Reason : PREOP Blood Pressure : */* mmHG Vent. Rate : 76 BPM Atrial Rate : 76 BPM P-R Int : 168 ms QRS Dur : 86 ms QT Int : 400 ms P-R-T Axes : * -38 83 degrees QTcB Int : 450 ms Normal sinus rhythm Left axis deviation Nonspecific ST and T wave abnormality Abnormal ECG Confirmed by TAZ PATINO, THA ([id number]), commercial production editor JERRI HOU ([id number]) on 55:48:38 AM Referred By: Alexandre Yip Confirmed By: THA MCGHEE MD 06/28/24 0548 Date _ Tha Mcghee MD CC: Dr. Alexandre Yip MD; Dr. Nathanael Maradiaga, DO ~ Signed [facility] Work Phone: MRSA/SAID NASAL SCREENon MRSA+SAID SCRN Reason for Exam: Surgery Copy of report sent to Infection Control Printer [id number] 06/28/24 1358 VSICK. MRSA MRSA Negative S. AUREUS S. aureus PositiveA Normal [facility] Comment on above: Performed By: #### L 3890.6006, L3890.6301, L500.2500, L100.0100, L3100.0300, BTSPAT, M100.651, L3890.6202 ####[facility] [address] [place], [address] 12 Lead EKGon 06-27-2024 12 Lead EKG [facility] [address] [place] [address] 12 Lead EKG 06/27/24 1254 MR#: [id number] Acct: [id number] Name: TERESA RAINEY Rep #: [id number] : 1950 73 From: Tha Mcghee MD Attending Dr: Dr. Alexandre Yip MD Status: PRE [facility] [place] Ordering Dr: Alexandre Yip MD Date: 06/27/24 Location: [facility] [place] Sex: M C Admitted: Test Reason : PREOP Blood Pressure : */* mmHG Vent. Rate : 76 BPM Atrial Rate : 76 BPM P-R Int : 168 ms QRS Dur : 86 ms QT Int : 400 ms P-R-T Axes : * -38 83 degrees QTcB Int : 450 ms Normal sinus rhythm Left axis deviation Nonspecific ST and T wave abnormality Abnormal ECG Confirmed by TAZ PATINO, THA ([id number]), commercial production editor JERRI HOU ([id number]) on 06/28/2024 5:48:38 AM Referred By: Alexandre Yip Confirmed By: THA MCGHEE MD 06/28/24 0548 Date Tha Mcghee MD CC: Dr. Alexandre Yip MD; Dr. Nathanael Maradiaga, DO Signed Normal [facility] Absolute lymphocyte countOrd ered By: Alexandre Yip on 06-27-2024 Lymphocytes Auto (Unsp spec) [#/Vol] 2.24 10*3/uL 0.83-4.51 [facility] Absolute neutrophil countOrd ered By: Alexandre Yip on 06-27-2024 Neutrophils (Bld) [#/Vol] 4.2 10*3/uL 2.0-7.7 [facility] Automated lymphocyte count a s percentage of total leukocytesOrdered By: Alexandre Yip on 06-27-2024 Lymphocytes/100 WBC Auto (Unsp spec) 29.2 % 19-41 [facility] Basic Metabolic Profile (BMP )on 06-27-2024 BUN/CRE 23.0 RATIO High 10- [facility] Comment on above: Performed By: #### L 3890.6006, L3890.6301, L500.2500, L100.0100, L3100.0300, BTSPAT, M100.651, L3890.6202 ####[facility] [address] [place], [address] Calcium [Mass/Vol] 9.6 mg/dL Normal 7.6-11.0 [facility] Comment on above: Performed By: #### L 3890.6006, L3890.6301, L500.2500, L100.0100, L3100.0300, BTSPAT, M100.651, L3890.6202 ####[facility] [address] [place], [address] Chloride [Moles/Vol] 104 mmol/L Normal 98-108 [facility] Comment on above: Performed By: #### L 3890.6006, L3890.6301, L500.2500, L100.0100, L3100.0300, BTSPAT, M100.651, L3890.6202 ####[facility] [address] [place], [address] CO2 [Moles/Vol] 19.5 mmol/L Low 21.0-32.0 [facility] Comment on above: Performed By: #### L 3890.6006, L3890.6301, L500.2500, L100.0100, L3100.0300, BTSPAT, M100.651, L3890.6202 ####[facility] [address] [place], [address] Creatinine [Mass/Vol] 1.10 mg/dL Normal 0.70-1.20 [facility] Comment on above: Performed By: #### L 3890.6006, L3890.6301, L500.2500, L100.0100, L3100.0300, BTSPAT, M100.651, L3890.6202 ####[facility] [address] [place], [address] GAP 16 High 5-15 [facility] Comment on above: Performed By: #### L 3890.6006, L3890.6301, L500.2500, L100.0100, L3100.0300, BTSPAT, M100.651, L3890.6202 ####[facility] [address] [place], [address] GFR/1.73 sq M.predicted among non-blacks MDRD (S/P/Bld) [Vol rate/Area] 71 mL/min/{1.73_m2} Normal >60 [facility] Comment on above: Result Comment: mL/m in/1.73m2 CKD-EPI Creatinine Equation (2020) Performed By: #### L 3890.6006, L3890.6301, L500.2500, L100.0100, L3100.0300, BTSPAT, M100.651, L3890.6202 ####[facility] [address] [place], [address] Glucose [Mass/Vol] 243 mg/dL High 70-99 [facility] Comment on above: Performed By: #### L 3890.6006, L3890.6301, L500.2500, L100.0100, L3100.0300, BTSPAT, M100.651, L3890.6202 ####[facility] [address] [place], [address] Potassium [Moles/Vol] 4.6 mmol/L Normal 3.3-5.1 [facility] Comment on above: Performed By: #### L 3890.6006, L3890.6301, L500.2500, L100.0100, L3100.0300, BTSPAT, M100.651, L3890.6202 ####[facility] [address] [place], [address] Sodium [Moles/Vol] 139 mmol/L Normal 133-145 [facility] Comment on above: Performed By: #### L 3890.6006, L3890.6301, L500.2500, L100.0100, L3100.0300, BTSPAT, M100.651, L3890.6202 ####[facility] [address] [place], [address] Urea nitrogen [Mass/Vol] 25 mg/dL High 4-19 [facility] Comment on above: Performed By: #### L 3890.6006, L3890.6301, L500.2500, L100.0100, L3100.0300, BTSPAT, M100.651, L3890.6202 ####[facility] [address] [place], [address] Basophil percentageOrdered B y: Alexandre Yip on 06-27-2024 Basophils/100 WBC (Bld) 1.0 % 0-[address] [facility] CBC W/Diff, Automatedon 06-09 Absolute Lymph 2.24 X10 3/uL Normal 0.83-4.51 [facility] Comment on above: Performed By: #### L 3890.6006, L3890.6301, L500.2500, L100.0100, L3100.0300, BTSPAT, M100.651, L3890.6202 ####[facility] [address] [place], [address] Absolute Neut 4.2 X10 3/uL Normal 2.0-7.7 [facility] Comment on above: Performed By: #### L 3890.6006, L3890.6301, L500.2500, L100.0100, L3100.0300, BTSPAT, M100.651, L3890.6202 ####[facility] [address] [place], [address] Basophils/100 WBC (Bld) 1.0 % Normal 0-[address] [facility] Comment on above: Performed By: #### L 3890.6006, L3890.6301, L500.2500, L100.0100, L3100.0300, BTSPAT, M100.651, L3890.6202 ####[facility] [address] [place], [address] Eosinophils/100 WBC (Bld) 5.1 % High 0-5 [facility] Comment on above: Performed By: #### L 3890.6006, L3890.6301, L500.2500, L100.0100, L3100.0300, BTSPAT, M100.651, L3890.6202 ####[facility] [address] [place], [address] Erythrocyte distribution width (RBC) [Ratio] 12.2 % Normal 11.6-14.6 [facility] Comment on above: Performed By: #### L 3890.6006, L3890.6301, L500.2500, L100.0100, L3100.0300, BTSPAT, M100.651, L3890.6202 ####[facility] [address] [place], [address] Hematocrit (Bld) [Volume fraction] 41.2 % Normal 40-54 [facility] Comment on above: Performed By: #### L 3890.6006, L3890.6301, L500.2500, L100.0100, L3100.0300, BTSPAT, M100.651, L3890.6202 ####[facility] [address] [place], [address] Hemoglobin (Bld) [Mass/Vol] 14.3 g/dL Normal 13.0-16.5 [facility] Comment on above: Performed By: #### L 3890.6006, L3890.6301, L500.2500, L100.0100, L3100.0300, BTSPAT, M100.651, L3890.6202 ####[facility] [address] [place], [address] IG% 0.400 Normal 0.0-0.9 [facility] Comment on above: Result Comment: IG% - Immature Granulocytes (promyelocytes, myelocytes and metamyelocytes) > 1% indicates that a LEFT SHIFT is Present. Performed By: #### L 3890.6006, L3890.6301, L500.2500, L100.0100, L3100.0300, BTSPAT, M100.651, L3890.6202 ####[facility] [address] [place], [address] Lymphocytes/100 WBC (Bld) 29.2 % Normal 19-41 [facility] Comment on above: Performed By: #### L 3890.6006, L3890.6301, L500.2500, L100.0100, L3100.0300, BTSPAT, M100.651, L3890.6202 ####[facility] [address] [place], [address] MCH (RBC) [Entitic mass] 31.7 pg Normal 27.0-32.0 [facility] Comment on above: Performed By: #### L 3890.6006, L3890.6301, L500.2500, L100.0100, L3100.0300, BTSPAT, M100.651, L3890.6202 ####[facility] [address] [place], [address] MCHC (RBC) [Mass/Vol] 34.7 g/dL Normal 32-36 [facility] Comment on above: Performed By: #### L 3890.6006, L3890.6301, L500.2500, L100.0100, L3100.0300, BTSPAT, M100.651, L3890.6202 ####[facility] [address] [place], [address] MCV (RBC) [Entitic vol] 91.4 fL Normal 80-[address] [facility] Comment on above: Performed By: #### L 3890.6006, L3890.6301, L500.2500, L100.0100, L3100.0300, BTSPAT, M100.651, L3890.6202 ####[facility] [address] [place], [address] Monocytes/100 WBC (Bld) 9.1 % Normal 0-10 [facility] Comment on above: Performed By: #### L 3890.6006, L3890.6301, L500.2500, L100.0100, L3100.0300, BTSPAT, M100.651, L3890.6202 ####[facility] [address] [place], [address] Neutrophils/100 WBC (Bld) 55.2 % Normal 47-70 [facility] Comment on above: Performed By: #### L 3890.6006, L3890.6301, L500.2500, L100.0100, L3100.0300, BTSPAT, M100.651, L3890.6202 ####[facility] [address] [place], [address] Nucleated RBC (Bld) [#/Vol] 0 10*3/uL Normal 0-5 [facility] Comment on above: Performed By: #### L 3890.6006, L3890.6301, L500.2500, L100.0100, L3100.0300, BTSPAT, M100.651, L3890.6202 ####[facility] [address] [place], [address] Platelet mean volume (Bld) [Entitic vol] 10.6 fL Normal 6.2-12.0 [facility] Comment on above: Performed By: #### L 3890.6006, L3890.6301, L500.2500, L100.0100, L3100.0300, BTSPAT, M100.651, L3890.6202 ####[facility] [address] [place], [address] Platelets (Bld) [#/Vol] 253 10*3/uL Normal 150-450 [facility] Comment on above: Performed By: #### L 3890.6006, L3890.6301, L500.2500, L100.0100, L3100.0300, BTSPAT, M100.651, L3890.6202 ####[facility] [address] [place], [place], [phone] RBC (Bld) [#/Vol] 4.51 10*6/uL Low 4.6-6.2 [facility] Comment on above: Performed By: #### L 3890.6006, L3890.6301, L500.2500, L100.0100, L3100.0300, BTSPAT, M100.651, L3890.6202 ####[facility] [address] [place], [address] RDW SD 40.7 fl Normal 35.1-43.9 [facility] Comment on above: Performed By: #### L 3890.6006, L3890.6301, L500.2500, L100.0100, L3100.0300, BTSPAT, M100.651, L3890.6202 ####[facility] [address] [place], [address] WBC (Bld) [#/Vol] 7.7 10*3/uL Normal 4.4-11.0 [facility] Comment on above: Performed By: #### L 3890.6006, L3890.6301, L500.2500, L100.0100, L3100.0300, BTSPAT, M100.651, L3890.6202 ####[facility] [address] [place], [address] Eosinophil percentageOrdered By: Alexandre Yip on 06-27-2024 Eosinophils/100 WBC (Bld) 5.1 % High 0-5 [facility] HBV surface Ab Ql (S)Ordered By: Alexandre Yip on 06-27-2024 Hepatitis B Surface Antibody Non-Reactive [facility] Comment on above: <8.5 mIU/mL: Non-Christoval ctive8.5<= x <11.5 mIU/mL: Indeterminate>=11.5 mIU/mL: Reactive Non Reactive: Inconsistent with immunity less than <10 mIU/mL Reactive: Consistent with immunity greater than or equal to 10 mIU/mL Hemoglobin A1con 06-27-2024 HbA1c (Bld) [Mass fraction] 7.5 % Normal <=5.6 [facility] Comment on above: Performed By: #### L 501.5200, L501.9985 ####[facility] [address] [place], [address] Hemoglobin A1c percentageOrd ered By: Bobby Mendez on 06-27-2024 HbA1c (Bld) [Mass fraction] 7.5 % >5.7 [facility] Hepatitis A virus total anti body assayOrdered By: Alexandre Yip on 06-27-2024 Hepatitis A Antibody Total Negative Negative [facility] Comment on above: Comment: The HAV tot al antibody assay detects both IgG andIgM but does not differentiate between them. A negativeresult suggests susceptibility to infection. A positiveresult could be due to vaccination, previously resolvedinfection or active infection. Testing for HAV IgM shouldbe performed if active HAV infection is suspected. [facility] that will automatically reflex positive HAVtotal antibody results to IgM (e.g., panel #[id number] HAVAntibody w/ Rfx).Performed at: [address] [id number] Director: Kamlesh Cleveland PhD, Phone: [phone] Hepatitis C antibodyOrdered By: Alexandre Yip on 06-27-2024 Hepatitis C Antibody Non-Reactive Nonreactive [facility] Comment on above: Reactive: Presumptiv e evidence of antibodies to HCV. Follow CDC recommendations for supplemental testing.Non-Reactive: Antibodies to HCV were not detected; does not exclude the possibility of exposure to HCVReactive Results are presumptive evidence of antibodies to HCV. Follow CDC recommendations for supplemental testing.Order confirmation testing: HCV Quant by PCR testing - HCVPCR #[id number] Non Reactive: < 0.8 Equivocal: >/= 0.8 to < 1.0 Reactive: >/= 1.0The CDC requires that a reactive/equivocal HCV antibody result be sent out for confirmation. HCV Quant by PCR testing. Immature granulocytes/100 WB C Auto (Bld)Ordered By: Alexandre Yip on 06-27-2024 Immature granulocytes/100 WBC (Bld) 0.400 % 0.0-0.9 [facility] Comment on above: IG% - Immature Granu locytes (promyelocytes, myelocytes and metamyelocytes) > 1% indicates that a LEFT SHIFT is Present. L3890.6006on 06-27-2024 HIV Non-Reactive Normal Nonreactive [facility] Comment on above: Result Comment: Non- Reactive Reactive Repeatedly reactive samples must be confirmed according to CDC recommended confirmatory algorithms. The subresults for either HIVAG or AHIV can be used as an aid in the selection of the confirmation algorithm for reactive samples. [facility] specimens with [facility]. Order the HIV antibody detection and differentiation: lc#[id number] Performed By: #### L 3890.6006, L3890.6301, L500.2500, L100.0100, L3100.0300, BTSPAT, M100.651, L3890.6202 ####[facility] [address] [place], [place], [id number] L3890.6202on 06-27-2024 HEP B Surf Ab Non-Reactive Normal [facility] Comment on above: Result Comment: <8.5 mIU/mL: Non-Reactive 8.5<= x <11.5 mIU/mL: Indeterminate >=11.5 mIU/mL: Reactive Non Reactive: Inconsistent with immunity less than <10 mIU/mL Reactive: Consistent with immunity greater than or equal to 10 mIU/mL Performed By: #### L 3890.6006, L3890.6301, L500.2500, L100.0100, L3100.0300, BTSPAT, M100.651, L3890.6202 ####[facility] [address] [place], [place], [id number] L3890.6301on 06-27-2024 Hepatitis C Ab Non-Reactive Normal Nonreactive [facility] [facility] [place] Comment on above: Result Comment: Reac tive: Presumptive evidence of antibodies to HCV. Follow CDC recommendations for supplemental testing. Non-Reactive: Antibodies to HCV were not detected; does not exclude the possibility of exposure to HCV Reactive Results are presumptive evidence of antibodies to HCV. Follow CDC recommendations for supplemental testing. Order confirmation testing: HCV Quant by PCR testing - HCVPCR #[id number] Non Reactive: < 0.8 Equivocal: >/= 0.8 to < 1.0 Reactive: >/= 1.0 The CDC requires that a reactive/equivocal HCV antibody result be sent out for confirmation. HCV Quant by PCR testing. Performed By: #### L 3890.6006, L3890.6301, L500.2500, L100.0100, L3100.0300, BTSPAT, M100.651, L3890.6202 ####[facility] [address] [place], [place], [id number] Lymphocytes Auto (Unsp spec) [#/Vol]Ordered By: Alexandre Yip on 06-27-2024 Lymphocytes (Bld) [#/Vol] 2.24 10*3/uL 0.83-4.51 [facility] Lymphocytes/100 WBC Auto (Un sp spec)Ordered By: Alexandre Yip on 06-27-2024 Lymphocytes/100 WBC (Bld) 29.2 % 19- [facility] MR/PAT.MIGUELINAon 06-27-2024 MR/PAT.MIGUELINA [facility] Medical Records Department [address] [place] [address] PAT - Anesthesia 06/27/24 1649 MR#: [id number] Acct: [id number] Name: TERESA RAINEY Rep #: [id number] : 1950 73 From: Bobby Mendez MD PCP: Dr. 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 When Was Last Pacemaker Check QUESTION #4 FULL TEXT: You/Your Family Experience fever (hyperthermia) with Anesthesia Last Oral Intake Last Oral intake: Last Oral Intake NPO since Meds taken in AM with sips of water? 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 Female No 06/26/24 09:09 HX of Motion Sickness No 06/26/24 09:09 HX of N/V After Surgery No 06/26/24 09:09 Non-Smoker No 06/26/24 09:09 Duration of Surgery greater Yes 06/26/24 09:09 than 60 minutes Number of Risk Factors 1 06/26/24 09:09 PONV Score Low Risk 06/26/24 09:09 Height Weight Height Weight: Anesthesia: Height Weight Height 5 ft 6 in 04/09/24 12:56 Respiratory Assessment Respiratory Assessment - pathology supervisor: Respiratory Tract Infection Hx - pathology supervisor Hx Respiratory Tract Infection No 06/26/24 09:09 STOP Sleep Apnea STOP Sleep Apnea - pathology supervisor: STOP Sleep Apnea - pathology supervisor Hx Hypertension Yes: CONTROLLED WITH MED 06/26/24 09:09 Hx Sleep Apnea No 06/26/24 09:09 CPAP No 03/12/24 14:13 BIPAP Do you snore loudly (louder Yes 06/26/24 09:09 than talking or can be heard Do you often feel tired/ Yes 06/26/24 09:09 fatigued/ sleepy during daytime? Has anyone observed you stop No 06/26/24 09:09 breathing during sleep? STOP Results Positive 06/26/24 09:09 QUESTION #5 FULL TEXT : Do you snore loudly (louder than talking or can be heard through closed doors)? 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 Specify any problems Hx of Preganancy in last 3 N/A 06/26/24 09:09 Months Nurse Filling Out Transfusion DSCHRIBER 06/26/24 09:09 Questions: Date: 06/26/24 06/26/24 09:09 Time: 09:11 06/26/24 09:09 Patient unable to answer at this time (ie. confused, unrespo /Reproduction History /Reproductive History - pathology supervisor: /Reproductive Hx- pathology supervisor Hx Now No 06/26/24 09:09 Gestational Age (in weeks): EDC: Hx Hx Para Hx Section SAB No 06/26/24 09:09 PFSH Medical History (Updated 06/26/24 @ 09:24 by Karoline Redmond) History of steroid therapy Cluster headache Syncope History of stress test Cardiology follow-up encounter Wears hearing aid Wears glasses Cancer Rash Arthritis Back pain Dietary restriction Patient uses snuff History of pain when walking History of edema BPH (benign prostatic hyperplasia) Benign essential tremor Essential hypertension Hyperlipidemia Type 2 diabetes mellitus without complication Constipation Home Medications ???Medication ???Instructions ???Recorded ???Last Taken ???Type simvastatin 10 mg tablet 10 mg PO QHS 07/29/16 12/08/22 His tory cyclobenzaprine 10 mg tablet 10 mg PO TID PRN muscle spasm 10/0912/08/22 History omega-3 fatty acids 1,000 mg 1,000 mg PO DAILY 11/01/18 Unknown History capsule (Fish Oil Concentrate) propranolol 120 mg capsule,24 120 mg PO DAILY (more content not included)... Normal [facility] MRSA screenOrdered By: Joe Yip on 06-27-2024 MRSA DNA SUJATA+probe Ql (Unsp spec) [facility] Nasal Screen MRSA/MSSA [facility] Magnesiumon 06-27-2024 Magnesium [Mass/Vol] 2.8 mg/dL High 1.5-2.2 [facility] Comment on above: Performed By: #### L 501.5200, L501.9985 #### [facility] Laboratory [address] [place] [address], [address] Magnesium (Unsp spec) [Mass/ Vol]Ordered By: Bobby Mendez on 06-27-2024 Magnesium [Mass/Vol] 2.8 mg/dL High 1.5-2.2 [facility] Magnesium measurement (mass/ volume)Ordered By: Bobby Mendez on 06-27-2024 Magnesium (Unsp spec) [Mass/Vol] 2.8 mg/dL High 1.5-2.2 [facility] Monocyte percentageOrdered B y: Alexandre Yip on 06-27-2024 Monocytes/100 WBC (Bld) 9.1 % 0-[address] [facility] Neutrophil percentageOrdered By: Alexandre Yip on 06-27-2024 Neutrophils/100 WBC (Bld) 55.2 % 47-70 [facility] No Panel InformationOrdered By: Alexandre Yip on 06-27-2024 HIV (1&2) Antibody Non-Reactive Nonreactive [facility] Comment on above: Non-ReactiveReactive Repeatedly reactive samples must be confirmed according to CDC recommended confirmatory algorithms. The subresults for either HIVAG or AHIV can be used as an aid in the selection of the confirmation algorithm for reactive samples.Send out specimens with Reactive results to [facility] for confirmation.Order the HIV antibody detection and differentiation: #[id number] Nucleated red blood cell per centageOrdered By: Alexandre Yip on 06-27-2024 Nucleated RBC/100 WBC (Bld) [Ratio] 0 % 0-5 [facility] Serum hepatitis B virus surf brenton antibody detectionOrdered By: Alexandre Yip on 06-27-2024 HBV surface Ab Ql (S) Non-Reactive [facility] Comment on above: <8.5 mIU/mL: Non-Caroline ctive8.5<= x <11.5 mIU/mL: Indeterminate>=11.5 mIU/mL: Reactive Non Reactive: Inconsistent with immunity less than <10 mIU/mL Reactive: Consistent with immunity greater than or equal to 10 mIU/mL Type AND Screen - PAT ONLYon 06-27-2024 ABO and Rh group Nom (Bld) Blood group B Rh(D) positive Normal [facility] Comment on above: Order Comment: Surge ry Date: 07/10/24Reason for Laboratory Test [id number]/ANNSCERVICAL DISC FUSION C4-5,5-6 Performed By: #### L 3890.6006, L3890.6301, L500.2500, L100.0100, L3100.0300, BTSPAT, M100.651, L3890.6202 ####[facility] [address] [place], [address] Cerv Spine 4 or 5 Viewson Cerv Spine 4 or 5 Views [facility] Imaging Services [address] [place], [place] [address] Cerv Spine 4 or 5 Views MR#: [id number] Acct: [id number] Name: TERESA RAINEY Rep #: [id number] : 1950 M 73 From: Nathanael Moran MD PCP: Dr. Nathanael Maradiaga, DO Status: DEP AMB Study: Cerv Spine 4 or 5 Views Date of Exam: 05/17/24 Exam# [id number] Ordering Dr: Alexandre Yip MD EXAM: XR Cervical Spine, 4 or 5 Views CLINICAL INDICATION: TECHNIQUE: Frontal, lateral and bilateral oblique views of the cervical spine. COMPARISON: No relevant prior studies available. FINDINGS: VERTEBRAE: Degenerative facet arthropathy throughout the cervical spine. Normal alignment. No acute fracture. DISC SPACES: Degenerative disc disease throughout the cervical spine. SOFT TISSUES: Unremarkable. RAD/Cerv Spine 4 or 5 Views IMPRESSION: 1. No acute fracture. 2. Degenerative changes of the cervical spine as described. Reading Location: [facility] CC: Dr. Alexandre Yip MD; Dr. Nathanael Maradiaga DO [employer] Specialist: Signed Normal [facility] Orthopedic Visit Reporton Orthopedic Visit Report [facility] [address] [place] [address] OFFICE VISIT Date of Service: 05/17/24 MR#: [id number] Acct: [id number] Name: TERESA RAINEY Rep #: [id number] : 1950 Provider: Dr. Alexandre Yip MD Age/Sex: 73/M Location[place] [facility] Status: Signed Intake Vital Signs 04/09/24 12:56 Height 5 ft 6 in Weight: 215 lb BMI 34.7 Intake Visit Reasons: CERVICAL SPINE Chief Complaint: cervical spine MRI review Is patient in pain?: No Allergies amoxicillin Allergy (Verified 05/17/24 13:41) Hives Penicillins Allergy (Verified 05/17/24 13:41) Hives tramadol Adverse Reaction (Severe, Verified 05/17/24 13:41) Other Medications ???Medication ???Instructions ???Recorded ???Confirmed ???Type simvastatin 10 mg tablet 10 mg PO QHS 07/29/16 05/17/24 His tory cyclobenzaprine 10 mg tablet 10 mg PO TID PRN Pain Or Fever 05/17/24 History metformin 500 mg tablet 1,000 mg PO BIDCM 11/01/18 5 History omega-3 fatty acids 1,000 mg 1,000 mg PO DAILY 11/01/18 5 History capsule (Fish Oil Concentrate) propranolol 120 mg capsule,24 120 mg PO DAILY 11/01/18 05/17/24 History hr,extended release losartan 25 mg tablet 100 mg PO DAILY 05/20/19 05/17/24 History multivitamin 1 ea PO DAILY 05/20/19 05/17/24 Hi story naphazoline 0.60270 %-pheniramine 2 drp OP PRN PRN Allergies 05/17/24 History 0.315 % eye drops diphenhydramine HCl 25 mg capsule 25 mg PO BID PRN Allergies 05/17/24 History docusate sodium 100 mg capsule 100 mg PO QHS PRN Constipation 02/2705/17/24 History glipizide 5 mg tablet 5 mg PO BID 12/02/22 05/17/24 Hist ory oxycodone-acetaminophen 7.5 mg-325 1 tab PO Q6H PRN pain 12/02/22 0 05/17/24 History mg tablet finasteride 5 mg tablet 5 mg PO QDAY 04/09/24 05/17/24 His tory hydralazine 10 mg tablet 10 mg PO TID 04/09/24 05/17/24 His tory Have you fallen in the past year?: No PFSH Medical History Cardiology follow-up encounter Wears hearing aid Wears glasses Cancer Rash History of steroid therapy Arthritis Back pain Dietary restriction Patient uses snuff History of pain when walking History of edema BPH (benign prostatic hyperplasia) Benign essential tremor Essential hypertension Hyperlipidemia Type 2 diabetes mellitus without complication Constipation Surgical History Hx of transurethral resection of prostate History of cystoscopy History of lithotripsy History of incision and drainage History of fusion of cervical spine History of tonsillectomy Family History Father Colon cancer CVA (cerebral vascular accident) Mother Cancer Son Hypertension Social History Smoking Status: Never smoker alcohol intake: current substance use type: does not use caffeine: Yes Type: carbonated beverages Number of servings: 2 HPI CERVICAL SPINE Details: This documentation accurately reflects the service provided and the decisions made by me, Dr. Alexandre Yip MD 05/17/24 9423. Part of today???s visit was documented by Esthela Arellano LPN, acting as scribe. TERESA RAINEY is a 73 year old M here today for cervical spine MRI review. He would like to discuss results and next steps. He did receive a steroid injection in his cervical spine on Monday by Dr. Hines. 04/09/24: TERESA RAINEY is a 73 year old M here today for lumbar spine pain. Pt. presents using a cane for ambulation. He states his low back pain is at the center and describes it as a constant, tired soreness and rates it 3/10. had been experiencing sciatic nerve pain in his left quad for about 3 months. He had a lumbar spine injection on 03-19-24 which is still effective. He was referred by Dr. Hines who has been giving him steroid injections in his cervical, thoracic spine and lumbar spine. He states the other injections have been effective temporarily. He also c/o thoracic pain on the right mid back. Says that he gets abdominal pain as well but has not discussed this with his family doctor. He describes it as a constant sharp pain and rates that 3/10 today. He is taking Tylenol and Ibuprofen as directed by Dr. Hines. He denies previous back injury, he reports a cervical fusion in 1989 d/t deterioration. He has done PT x 3 which was not helpful. No recent imaging. Says that he has an essential tremor that makes the handwriting difficult. History of diabetes with last a1c 6.7. Ortho Exam General General: Yes no acute distress Neurologic: Yes alert and Yes oriented x3 Spine SPINE TESTING CERVICAL THORACIC LUMBAR Musculos (more content not included)... Normal [facility] L/S Spine Min 4 Views03-12 L/S Spine Min [address] [facility] Radiology [address] [place] [address] L/S Spine Min 4 Views MR#: [id number] Acct: [id number] Name: TERESA RAINEY Rep #: [id number] : 1950 M 73 From: Sumeet Orona MD PCP: Dr. Nathanael Maradiaga DO Status: DEP AMB Study: L/S Spine Min 4 Views Date of Exam: 04/09/24 Exam# [id number] Ordering Dr: Florina Metz [id number] STUDY: X-RAY - LUMBAR SPINE REASON FOR EXAM: Male, 73 years old. pain -- please do upright AP, LAT, flex/ext TECHNIQUE: 4 view(s) of the lumbar spine were obtained. COMPARISON: 10/31/2022 FINDINGS: Normal lumbar lordosis. Lumbarization of the S1 segment with a rudimentary disc at S1/S2. There is no substantial scoliosis. 2 mm of anterolisthesis of L5 on S1 which is unchanged on the flexion and extension views. Normal vertebral bodies and endplates. Normal disc space heights. There is multilevel facet hypertrophy. The soft tissue structures are unremarkable. RAD/L/S Spine Min 4 Views IMPRESSION: Degenerative disc disease with 2 mm of anterolisthesis of L5 on S1 which is unchanged on the flexion and extension views. Electronically Signed: Sumeet Orona MD at 0:08 EST , CC: ANABELLA Warren; Dr. Nathanael Maradiaga DO [employer] Specialist: Signed Normal [facility] Orthopedic Visit Reporton Orthopedic Visit Report [facility] [address] [place] [address] OFFICE VISIT Date of Service: 04/09/24 MR#: [id number] Acct: [id number] Name: REDDTERESA Rep #: [id number] : 1950 Provider: Dr. Alexandre Yip MD Age/Sex: 73/M Location[place] [facility] Status: Signed Intake Vital Signs 01/02/23 13:02 03/12/24 14:13 04/09/24 12:56 Height 5 ft 6 in 5 ft 6 in 5 ft 6 in Weight: 215 lb BMI 34.7 Intake Visit Reasons: LUMBAR SPINE Chief Complaint: lumbar spine Is patient in pain?: Yes (low back ) Pain scale (1-10): 3 Allergies amoxicillin Allergy (Verified 04/09/24 13:12) Hives Penicillins Allergy (Verified 04/09/24 13:12) Hives tramadol Adverse Reaction (Severe, Verified 04/09/24 13:12) Other Medications ???Medication ???Instructions ???Recorded ???Confirmed ???Type simvastatin 10 mg tablet 10 mg PO QHS 07/29/16 04/09/24 History cyclobenzaprine 10 mg tablet 10 mg PO TID PRN Pain Or Fever 11/01/18 04/09/24 History metformin 500 mg tablet 1,000 mg PO BIDCM 11/01/18 04/09/24 History omega-3 fatty acids 1,000 mg 1,000 mg PO DAILY 11/01/18 04/09/24 History capsule (Fish Oil Concentrate) propranolol 120 mg capsule,24 120 mg PO DAILY 11/01/18 04/09/24 History hr,extended release losartan 25 mg tablet 100 mg PO DAILY 05/20/19 04/09/24 History multivitamin 1 ea PO DAILY 05/20/19 04/09/24 History naphazoline 0.89689 %-pheniramine 2 drp OP PRN PRN Allergies 05/20/19 04/09/24 History 0.315 % eye drops diphenhydramine HCl 25 mg capsule 25 mg PO BID PRN Allergies 05/21/19 04/09/24 History docusate sodium 100 mg capsule 100 mg PO QHS PRN Constipation 05/21/19 04/09/24 History glipizide 5 mg tablet 5 mg PO BID 12/02/22 04/09/24 History oxycodone-acetaminophen 7.5 mg-325 1 tab PO Q6H PRN pain 12/02/22 04/09/24 History mg tablet ciprofloxacin HCl 500 mg tablet 500 mg PO BID #10 tabs 12/09/22 04/09/24 Rx (Cipro) finasteride 5 mg tablet 5 mg PO QDAY 04/09/24 04/09/24 History hydralazine 10 mg tablet 10 mg PO TID 04/09/24 04/09/24 History Have you fallen in the past year?: No PFSH Medical History Cardiology follow-up encounter Wears hearing aid Wears glasses Cancer Rash History of steroid therapy Arthritis Back pain Dietary restriction Patient uses snuff History of pain when walking History of edema BPH (benign prostatic hyperplasia) Benign essential tremor Essential hypertension Hyperlipidemia Type 2 diabetes mellitus without complication Constipation Surgical History Hx of transurethral resection of prostate History of cystoscopy History of lithotripsy History of incision and drainage History of fusion of cervical spine History of tonsillectomy Family History Father Colon cancer CVA (cerebral vascular accident) Mother Cancer Son Hypertension Social History Smoking Status: Never smoker alcohol intake: current substance use type: does not use caffeine: Yes Type: carbonated beverages Number of servings: 2 HPI LUMBAR SPINE Chief Complaint: lumbar spine Details: This documentation accurately reflects the service provided and the decisions made by me, Dr. Alexandre Yip MD 04/09/24 1255. Part of today???s visit was documented by Florina KYLE, acting as scribe. TERESA RAINEY is a 73 year old M here today for lumbar spine pain. Pt. presents using a cane for ambulation. He states his low back pain is at the center and describes it as a constant, tired soreness and rates it 3/10. had been experiencing sciatic nerve pain in his left quad for about 3 months. He had a lumbar spine injection on 03-19-24 which is still effective. He was referred by Dr. Hines who has been giving him steroid injections in his cervical, thoracic spine and lumbar spine. He states the other injections have been effective temporarily. He also c/o thoracic pain on the right mid back. Says that he gets abdominal pain as well but has not discussed this with his family doctor. He describes it as a constant sharp pain and rates that 3/10 today. He is taking Tylenol and Ibuprofen as directed by Dr. Hines. He denies previous back injury, he reports a cervical fusion in 1989 d/t deterioration. He has done PT x 3 which was not helpful. No recent imaging. Says that he has an essential tremor that makes the handwriting difficult. History of diabetes with last a1c 6.7. Ortho Exam General General: Yes no acute distress Neurologic: Yes alert and Yes oriented x3 Spine SPINE TESTING CERVICAL THORACIC LUMBAR Musculoskeletal Strength 0=absent - 5=normal Details: Neurological exam of (more content not included)... Normal [facility] Basic Metabolic Profile (BMP )on 01-23-2024 BUN/CRE 16.5 RATIO Normal - [facility] Comment on above: Performed By: #### L 100.0500, L500.2500 ####[facility] [address] [facility] [address] [place],Total 9.9 mg/dL Normal 8.5-10.1 [facility] Comment on above: Performed By: #### L 100.0500, L500.2500 ####[facility] [address] [facility] [address] Chloride [Moles/Vol] 110 mmol/L High 98-107 [facility] Comment on above: Performed By: #### L 100.0500, L500.2500 ####[facility] [address] [place], [address] CO2 [Moles/Vol] 27.0 mmol/L Normal 21.0-32.0 [facility] Comment on above: Performed By: #### L 100.0500, L500.2500 ####[facility] [address] [facility] [address] Creatinine [Mass/Vol] 1.39 mg/dL High 0.70-1.30 [facility] Comment on above: Result Comment: The validity of the calculated GFR GFRAA in patients over 70 years has not been determined. Clinical correlation is essential. Performed By: #### L 100.0500, L500.2500 ####[facility] [address] [place], [address] EST GFR - AA 64 mL/min Normal >60 [facility] Comment on above: Result Comment: Afri can Malian GFR Calc Performed By: #### L 100.0500, L500.2500 ####[facility] [address] [place], [address] GAP 3 Low 5-15 [facility] Comment on above: Performed By: #### L 100.0500, L500.2500 ####[facility] [address] [place], [address] GFR/1.73 sq M.predicted among non-blacks MDRD (S/P/Bld) [Vol rate/Area] 53 mL/min/{1.73_m2} Low >60 [facility] Comment on above: Result Comment: Non- GFR Calc Performed By: #### L 100.0500, L500.2500 ####[facility] [address] [place], [address] Glucose [Mass/Vol] 110 mg/dL High 74-106 [facility] Comment on above: Result Comment: Fast ing Glucose result from 100 to 125 mg/dL suggests IMPAIRED HOMEOSTASIS per A.D.A. criteria. Performed By: #### L 100.0500, L500.2500 ####[facility] [address] [place], [address] Potassium [Moles/Vol] 4.9 mmol/L Normal 3.5-5.1 [facility] Comment on above: Performed By: #### L 100.0500, L500.2500 ####[facility] [address] [place], [address] Sodium [Moles/Vol] 140 mmol/L Normal 136-145 [facility] Comment on above: Performed By: #### L 100.0500, L500.2500 ####[facility] [address] [place], [address] Urea nitrogen [Mass/Vol] 23 mg/dL High 7-18 [facility] Comment on above: Performed By: #### L 100.0500, L500.2500 ####[facility] [address] [place], [address] CBC-Complete Blood Cnt No Di ffon 01-23-2024 Erythrocyte distribution width (RBC) [Ratio] 13.0 % Normal 11.6-14.6 [facility] Comment on above: Performed By: #### L 100.0500, L500.2500 ####[facility] [address] [place], [address] Hematocrit (Bld) [Volume fraction] 42.8 % Normal 40-54 [facility] Comment on above: Performed By: #### L 100.0500, L500.2500 ####[facility] [address] [place], [address] Hemoglobin (Bld) [Mass/Vol] 14.3 g/dL Normal 13.0-16.5 [facility] Comment on above: Performed By: #### L 100.0500, L500.2500 ####[facility] [address] [place], [address] MCH (RBC) [Entitic mass] 31.4 pg Normal 27.0-32.0 [facility] Comment on above: Performed By: #### L 100.0500, L500.2500 ####[facility] [address] [place], [address] MCHC (RBC) [Mass/Vol] 33.4 g/dL Normal 32-36 [facility] Comment on above: Performed By: #### L 100.0500, L500.2500 ####[facility] [address] [place], [address] MCV (RBC) [Entitic vol] 94.1 fL High 80-[address] [facility] Comment on above: Performed By: #### L 100.0500, L500.2500 ####[facility] [address] [place], [address] Platelet mean volume (Bld) [Entitic vol] 10.7 fL Normal 6.2-12.0 [facility] Comment on above: Performed By: #### L 100.0500, L500.2500 ####[facility] [address] [place], [address] Platelets (Bld) [#/Vol] 262 10*3/uL Normal 150-450 [facility] Comment on above: Performed By: #### L 100.0500, L500.2500 ####[facility] [address] [place], [address] RBC (Bld) [#/Vol] 4.55 10*6/uL Low 4.6-6.2 [facility] Comment on above: Performed By: #### L 100.0500, L500.2500 ####[facility] [address] [place], [address] RDW SD 45.1 fl High 35.1-43.9 [facility] Comment on above: Performed By: #### L 100.0500, L500.2500 ####[facility] [address] [place], [address] WBC (Bld) [#/Vol] 8.5 10*3/uL Normal 4.4-11.0 [facility] Comment on above: Performed By: #### L 100.0500, L500.2500 ####[facility] [address] [place], [address] No Panel InformationOrdered By: Esthela Leo on 08-07-2023 Prostate Specific Antigen Screen 2.51 ng/mL 0.00-4.00 [facility] Comment on above: This test was perfor med using the TPSA assay method for theAMOtechLala chemistry system. Values obtained with differentassay methods cannot be used interchangably.When changing PSA assays in the course of monitoring apatient, additional sequential testing should be carriedout to confirm baseline values. Absolute lymphocyte countOrd ered By: Blas Copeland on 01-02-2023 Lymphocytes Auto (Unsp spec) [#/Vol] 1.64 10*3/uL 0.83-4.51 [facility] Basophil percentageOrdered B y: Blas Copeland on 01-02-2023 Basophils/100 WBC (Bld) 0.4 % 0-[address] [facility] Bilirubin [Mass/Vol] 1.00 mg/dL 0.20-1.00 [facility] Comment on above: For patients on eltr ombopag therapy, use of Dimension [place] TBIL is not recommended. Chloride [Moles/Vol] 100 mmol/L 98-107 [facility] Eosinophils/100 WBC (Bld) 2.0 % 0-5 [facility] Glucose [Mass/Vol] 258 mg/dL 74-106 [facility] Comment on above: Glucose result great er than or equal to 200 mg/dLsuggests DIABETES MELLITUS per A.D.A. criteria. Neutrophils (Bld) [#/Vol] 6.7 10*3/uL 2.0-7.7 [facility] Neutrophils/100 WBC (Bld) 70.8 % 47-70 [facility] Potassium [Moles/Vol] 3.7 mmol/L 3.5-5.1 [facility] Protein [Mass/Vol] 7.1 g/dL 6.4-8.2 [facility] Sodium [Moles/Vol] 134 mmol/L 136-145 [facility] WBC (Bld) [#/Vol] 9.4 10*3/uL 4.4-11.0 [facility] Basophil percentage 5-10 SEEN /hpf 0-[address] [facility] Bilirubin Test strip Ql (U)O rdered By: Blas Copeland on 01-02-2023 Bilirubin Ql (U) Negative Negative [facility] Blood erythrocytes count (nu mber/volume)Ordered By: Blas Copeland on 01-02-2023 RBC (Bld) [#/Vol] 3.75 10*6/uL 4.6-6.2 [facility] Blood hemoglobin measurement (mass/volume)Ordered By: Blas Copeland on 01-02-2023 Hemoglobin (Bld) [Mass/Vol] 11.6 g/dL 13.0-16.5 [facility] Blood lymphocytes/100 leukoc ytesOrdered By: Blas Copeland on 01-02-2023 Lymphocytes/100 WBC (Bld) 17.4 % 19-41 [facility] Blood monocytes/100 leukocyt esOrdered By: Blas Copeland on 01-02-2023 Monocytes/100 WBC (Bld) 8.9 % 0-[address] [facility] Blood platelet mean volumeOr dered By: Blas Copeland on 01-02-2023 Platelet mean volume (Bld) [Entitic vol] 10.5 fL 6.2-12.0 [facility] Determination of erythrocyte mean corpuscular volume (MCV)Ordered By: Blas Copeland on 01-02-2023 MCV (RBC) [Entitic vol] 92.3 fL 80-[address] [facility] Hematocrit Auto (Bld) [Volum e fraction]Ordered By: Blas Copeland on 01-02-2023 Hematocrit (Bld) [Volume fraction] 34.6 % 40-54 [facility] Ketones Test strip Ql (U)Ord ered By: Blas Copeland on 01-02-2023 Ketones Ql (U) 15 mg/dl Negative [facility] Laboratory - Chemistry and C hemistry - challengeOrdered By: Blas Copeland on 01-02-2023 ALP [Catalytic activity/Vol] 61 U/L 45-117 [facility] ALT [Catalytic activity/Vol] 22 U/L 16-61 [facility] CO2 [Moles/Vol] 25.0 mmol/L 21.0-32.0 [facility] Globulin (S) [Mass/Vol] 4.2 g/dL 2.2-4.[address] [facility] Urea nitrogen/Creatinine [Mass ratio] 15.1 mg/mg 10-20 [facility] Laboratory - Hematology and Cell countsOrdered By: Blas Copeland on 01-02-2023 Erythrocyte distribution width (RBC) [Entitic vol] 40.7 fL 35.1-43.9 [facility] Erythrocyte distribution width (RBC) [Ratio] 12.0 % 11.6-14.6 [facility] Immature granulocytes/100 WBC (Bld) 0.500 % 0.0-0.9 [facility] Comment on above: IG% - Immature Granu locytes (promyelocytes, myelocytes and metamyelocytes) > 1% indicates that a LEFT SHIFT is Present. MCH (RBC) [Entitic mass] 30.9 pg 27.0-32.0 [facility] Nucleated RBC/100 WBC (Bld) [Ratio] 0 % 0-5 [facility] MCHC Auto (RBC) [Mass/Vol]Or dered By: Blas Copeland on 01-02-2023 MCHC (RBC) [Mass/Vol] 33.5 g/dL 32-36 [facility] Mucus LM Ql (Urine sed)Order ed By: Blas Copeland on 01-02-2023 Mucus Ql (Urine sed) 0 SEEN /hpf [facility] Nitrite Test strip Ql (U)Ord ered By: Blas Copeland on 01-02-2023 Nitrite Ql (U) Negative Negative [facility] No Panel InformationOrdered By: Blas Copeland on 01-02-2023 Estimated Creatinine Clearance Calc 56.84 ml/min [facility] Estimated GFR (MDRD) Amer 88 mL/min >60 [facility] Comment on above: GFR Calc Estimated GFR (MDRD) Non-Af Amer 73 mL/min >60 [facility] Comment on above: Non- GFR Calc Platelets bldOrdered By: Dave Copeland on 01-02-2023 Platelets (Bld) [#/Vol] 225 10*3/uL 150-450 [facility] Protein Test strip Ql (U)Ord ered By: Blas Copeland on 01-02-2023 Protein Ql (U) 30 mg/dl Negative [facility] Serum or plasma albumin jonathan urement (mass/volume)Ordered By: Blas Copeland on 01-02-2023 Albumin [Mass/Vol] 2.9 g/dL 3.2-5.0 [facility] Serum or plasma albumin/glob ulin mass ratioOrdered By: Blas Copeland on 01-02-2023 Albumin/Globulin [Mass ratio] 0.7 {ratio} 0.9-2.4 [facility] Serum or plasma calcium jonathan urement (mass/volume)Ordered By: Blas Copeland on 01-02-2023 Calcium [Mass/Vol] 8.9 mg/dL 8.5-10.1 [facility] Serum or plasma creatinine m easurement (mass/volume)Ordered By: Blas Copeland on 01-02-2023 Creatinine [Mass/Vol] 1.06 mg/dL 0.70-1.30 [facility] Comment on above: The validity of the calculated GFR & GFRAA in patients over 70 years has not been determined. Clinical correlation is essential. Serum or plasma urea nitroge n measurement (mass/volume)Ordered By: Blas Copeland on 01-02-2023 Urea nitrogen [Mass/Vol] 16 mg/dL 7-18 [facility] Squamous epithelial cells de tection in urine sediment by light microscopyOrdered By: Blas Copeland on 01-02-2023 Epithelial cells.squamous LM Ql (Urine sed) 0 SEEN /hpf 0-5 [facility] Thin prep Papanicolaou smear with manual screeningOrdered By: Blas Copeland on 01-02-2023 Thin prep Papanicolaou smear with manual screening 10 U/L 15-37 [facility] Thin prep Papanicolaou smear with manual screening 9 5-15 [facility] Urine blood detectionOrdered By: Blas Copeland on 01-02-2023 RBC Ql (U) 10 /ul Negative [facility] RBC Ql (U) Not Reportable [facility] Urine clarityOrdered By: Dave Copeland on 01-02-2023 Clarity (U) Clear Clear [facility] Urine color determinationOrd ered By: Blas Copeland on 01-02-2023 Color (U) Yellow Yellow [facility] Urine glucose detectionOrder ed By: Blas Copeland on 01-02-2023 Glucose Ql (U) 100 mg/dl Normal [facility] Urine leukocyte esterase det ection by dipstickOrdered By: Blas Copeland on 01-02-2023 Leukocyte esterase Test strip Ql (U) 100 /ul Negative [facility] Urine pHOrdered By: Blas nur on 01-02-2023 pH (U) 6.0 [pH] 5.0 - 8.0 [facility] Urine sediment bacteria coun t by microscopy (number/high power field)Ordered By: Blas Copeland on 01-02-2023 Bacteria LM.HPF (Urine sed) [#/Area] 0 /[HPF] None Seen [facility] Urine specific gravity measu rementOrdered By: Blas Copeland on 01-02-2023 Specific gravity (U) [Rel density] 1.010 1.002-1.030 [facility] Urobilinogen Auto test strip Ql (U)Ordered By: Blas Copeland on 01-02-2023 Urobilinogen Ql (U) Normal mg/dl Normal [facility] Absolute lymphocyte countOrd ered By: Bessie Haro on 12-12-2022 Lymphocytes Auto (Unsp spec) [#/Vol] 1.20 10*3/uL 0.83-4.51 [facility] Basophil percentageOrdered B y: Bessie Haro on 12-12-2022 Basophil percentage 0-5 SEEN /hpf 0-5 [facility] Basophils/100 WBC (Bld) 0.5 % 0-[address] [facility] Chloride [Moles/Vol] 103 mmol/L 98-107 [facility] Eosinophils/100 WBC (Bld) 0.4 % 0-5 [facility] Glucose [Mass/Vol] 157 mg/dL 74-106 [facility] Comment on above: Fasting Glucose resu lt greater than or equal to 126 mg/dL suggests DIABETES MELLITUS per A.D.A. criteria. Lactate [Moles/Vol] 2.5 mmol/L 0.4-2.0 [facility] Comment on above: Critical Result(s) C alled at: 20:57:32 12/12/2022 by: Korina Kilgore Results read back by same. Neutrophils (Bld) [#/Vol] 5.4 10*3/uL 2.0-7.7 [facility] Neutrophils/100 WBC (Bld) 70.3 % 47-70 [facility] Potassium [Moles/Vol] 4.1 mmol/L 3.5-5.1 [facility] Sodium [Moles/Vol] 137 mmol/L 136-145 [facility] WBC (Bld) [#/Vol] 7.7 10*3/uL 4.4-11.0 [facility] Bilirubin Test strip Ql (U)O rdered By: Bessie Haro on 12-12-2022 Bilirubin Ql (U) 6 mg/dL Negative [facility] Comment on above: COLOR OF URINE MAY A FFECT DIPSTICK RESULTS. Blood erythrocytes count (nu mber/volume)Ordered By: Bessie Haro on 12-12-2022 RBC (Bld) [#/Vol] 4.08 10*6/uL 4.6-6.2 [facility] Blood hemoglobin measurement (mass/volume)Ordered By: Bessie Haro on 12-12-2022 Hemoglobin (Bld) [Mass/Vol] 12.9 g/dL 13.0-16.5 [facility] Blood lymphocytes/100 leukoc ytesOrdered By: Bessie Haro on 12-12-2022 Lymphocytes/100 WBC (Bld) 15.5 % 19-41 [facility] Blood monocytes/100 leukocyt esOrdered By: Bessie Haro on 12-12-2022 Monocytes/100 WBC (Bld) 12.9 % 0-[address] [facility] Blood platelet mean volumeOr dered By: Bessie Haro on 12-12-2022 Platelet mean volume (Bld) [Entitic vol] 10.4 fL 6.2-12.0 [facility] Culture, urineOrdered By: Attila Haro on 12-12-2022 Bacteria identified Cx Nom (U) Culture exhibits no growth. [facility] Determination of erythrocyte mean corpuscular volume (MCV)Ordered By: Bessie Haro on 12-12-2022 MCV (RBC) [Entitic vol] 95.8 fL 80-[address] [facility] Hematocrit Auto (Bld) [Volum e fraction]Ordered By: Bessie Haro on 12-12-2022 Hematocrit (Bld) [Volume fraction] 39.1 % 40-54 [facility] Ketones Test strip Ql (U)Ord ered By: Bessie Haro on 12-12-2022 Ketones Ql (U) 15 mg/dl Negative [facility] Laboratory - Chemistry and C hemistry - challengeOrdered By: Bessie Haro on 12-12-2022 CO2 [Moles/Vol] 27.0 mmol/L 21.0-32.0 [facility] Urea nitrogen/Creatinine [Mass ratio] 15.1 mg/mg 10-20 [facility] Laboratory - Hematology and Cell countsOrdered By: Bessie Haro on 12-12-2022 Erythrocyte distribution width (RBC) [Entitic vol] 42.6 fL 35.1-43.9 [facility] Erythrocyte distribution width (RBC) [Ratio] 12.1 % 11.6-14.6 [facility] Immature granulocytes/100 WBC (Bld) 0.400 % 0.0-0.9 [facility] Comment on above: IG% - Immature Granu locytes (promyelocytes, myelocytes and metamyelocytes) > 1% indicates that a LEFT SHIFT is Present. MCH (RBC) [Entitic mass] 31.6 pg 27.0-32.0 [facility] Nucleated RBC/100 WBC (Bld) [Ratio] 0 % 0-5 [facility] Laboratory - Microbiology an d Antimicrobial susceptibilityOrdered By: Bessie Haro on 12-12-2022 Bacteria identified Cx Nom (Bld) No growth in 5 days. [facility] MCHC Auto (RBC) [Mass/Vol]Or dered By: Bessie Haro on 12-12-2022 MCHC (RBC) [Mass/Vol] 33.0 g/dL 32-36 [facility] Mucus LM Ql (Urine sed)Order ed By: Bessie Haro on 12-12-2022 Mucus Ql (Urine sed) 0 SEEN /hpf [facility] Nitrite Test strip Ql (U)Ord ered By: Bessie Haro on 12-12-2022 Nitrite Ql (U) Positive Negative [facility] No Panel InformationOrdered By: Bessie Haro on 12-12-2022 Estimated Creatinine Clearance Calc 43.35 ml/min [facility] Estimated GFR (MDRD) Amer 65 mL/min >60 [facility] Comment on above: GFR Calc Estimated GFR (MDRD) Non-Af Amer 53 mL/min >60 [facility] Comment on above: Non- GFR Calc Platelets bldOrdered By: Rosanna Haro on 12-12-2022 Platelets (Bld) [#/Vol] 189 10*3/uL 150-450 [facility] Protein Test strip Ql (U)Ord ered By: Bessie Haro on 12-12-2022 Protein Ql (U) 100 mg/dl Negative [facility] Serum or plasma calcium jonathan urement (mass/volume)Ordered By: Bessie Haro on 12-12-2022 Calcium [Mass/Vol] 9.3 mg/dL 8.5-10.1 [facility] Serum or plasma creatinine m easurement (mass/volume)Ordered By: Bessie Haro on 12-12-2022 Creatinine [Mass/Vol] 1.39 mg/dL 0.70-1.30 [facility] Comment on above: The validity of the calculated GFR & GFRAA in patients over 70 years has not been determined. Clinical correlation is essential. Serum or plasma urea nitroge n measurement (mass/volume)Ordered By: Bessie Haro on 12-12-2022 Urea nitrogen [Mass/Vol] 21 mg/dL 7-18 [facility] Squamous epithelial cells de tection in urine sediment by light microscopyOrdered By: Bessie Haro on 12-12-2022 Epithelial cells.squamous LM Ql (Urine sed) 0 SEEN /hpf 0-5 [facility] Thin prep Papanicolaou smear with manual screeningOrdered By: Bessie Haro on 12-12-2022 Thin prep Papanicolaou smear with manual screening 7 5-15 [facility] Urine blood detectionOrdered By: Bessie Haro on 12-12-2022 RBC Ql (U) 250 /ul Negative [facility] RBC Ql (U) > 100 SEEN /hpf 0-5 [facility] Urine clarityOrdered By: Rosanna Haro on 12-12-2022 Clarity (U) Cloudy Clear [facility] Urine color determinationOrd ered By: Bessie Haro on 12-12-2022 Color (U) Brown Yellow [facility] Urine glucose detectionOrder ed By: Bessie Haro on 12-12-2022 Glucose Ql (U) 100 mg/dl Normal [facility] Urine leukocyte esterase det ection by dipstickOrdered By: Bessie Haro on 12-12-2022 Leukocyte esterase Test strip Ql (U) 100 /ul Negative [facility] Urine pHOrdered By: Bessie Haro on 12-12-2022 pH (U) 5.0 [pH] 5.0 - 8.0 [facility] Urine sediment bacteria coun t by microscopy (number/high power field)Ordered By: Bessie Haro on 12-12-2022 Bacteria LM.HPF (Urine sed) [#/Area] 1 /[HPF] None Seen [facility] Urine specific gravity measu rementOrdered By: Bessie Haro on 12-12-2022 Specific gravity (U) [Rel density] 1.020 1.002-1.030 [facility] Urobilinogen Auto test strip Ql (U)Ordered By: Bessie Haro on 12-12-2022 Urobilinogen Ql (U) 8 mg/dl Normal [facility] Glucose Glucometer (BldC) [M ass/Vol]Ordered By: Duke rTinh on 12-09-2022 Glucose [Mass/Vol] 117 mg/dL 74-106 [facility] Comment on above: MANAGEMENT OF PATIEN T CARE PER NURSING PROTOCOL Laboratory - Drug toxicology Ordered By: Yamile Hines on 11-30-2022 Amphetamines Ql (U) Negative <1000 ng/mL [facility] Benzodiazepines Ql (U) Negative < 200 ng/mL [facility] Cannabinoids Screen Ql (U) Negative < 50 ng/mL [facility] Cocaine Ql (U) Negative < 300 ng/mL [facility] Opiates Ql (U) Negative < 300 ng/mL [facility] No Panel InformationOrdered By: Yamile Hines on 11-30-2022 MDMA (Ecstasy) Screen Negative < 500 ng/mL [facility] Miscellaneous Test See comment [facility] Comment on above: [id number] 6+OXYCODONE-B UND (ng/mL) DRUG RESULT SCREEN CUTOFF____ Amphetamines,Urine Negative ng/mL 1000 Amphetamine test includes Amphetamine and Methamphetamine.Barbiturates Negative ng/mL 200Benzodiazepines Negative ng/mL 200Cannabinoid Negative ng/mL 20Cocaine (Metab) Negative ng/mL 300Opiates Negative ng/mL 300 Opiates test includes Codeine, Morphine, Hydromorphone, Hydrocodone. Oxycodone/Oxymorphone,Urine Positive ng/mL 300 Test includes Oxycodone and Oxymorphone. Oxycodone PositiveOxycodone Conf,MS,UR 334 ng/mL 300 Oxymorphone PositiveOxymorphone Conf,MS,UR 455 ng/mL 300 TESTING PERFORMED AT [facility]. ORIGINAL REPORT ON FILE IN LAB CONTAINS ADDITIONAL TEST SITE INFORMATION. Urine Barbiturates Screen Negative < 200 ng/mL [facility] Urine Drug Screen Comment [facility] Comment on above: CONFIRMATORY TESTING FOR ALL POSITIVE URINE DRUG SCREENRESULTS WILL ONLY BE SENT OUT UPON PHYSICIAN ORDER. VISTA Urine Drug Screen methods provide only preliminaryanalytical test results. A more specific alternate chemicalmethod must be used in order to obtain a confirmedanalytical result. Gas chromatography/mass spectrometery(GC/MS) is the preferred confirmatory method. Clinicalconsideration and professional judgement should be appliedto any drug of abuse test result, particularly whenpreliminary positive results are used. URINE TCA TESTING MUST BE ORDERED SEPARATELY. USE TESTMNEMONIC: HICA Urine Methadone Screen Negative < 300 ng/mL [facility] Urine phencyclidine (PCP) de tectionOrdered By: Yamile Hines on 11-30-2022 Phencyclidine Ql (U) Negative < 25 ng/mL [facility] Basophil percentageOrdered B y: Nathanael Maradiaga on 11-15-2022 Chloride [Moles/Vol] 109 mmol/L 98-107 [facility] Glucose [Mass/Vol] 86 mg/dL 74-106 [facility] Potassium [Moles/Vol] 4.3 mmol/L 3.5-5.1 [facility] Comment on above: Slight Hemolysis, Re sult may be falsely increased. Sodium [Moles/Vol] 141 mmol/L 136-145 [facility] Laboratory - Chemistry and C hemistry - challengeOrdered By: Nathanael Maradiaga on 11-15-2022 CO2 [Moles/Vol] 23.0 mmol/L 21.0-32.0 [facility] Urea nitrogen/Creatinine [Mass ratio] 28.7 mg/mg 10-20 [facility] No Panel InformationOrdered By: Nathanael Maradiaga on 11-15-2022 Estimated GFR (MDRD) Amer 86 mL/min >60 [facility] Comment on above: GFR Calc Estimated GFR (MDRD) Non-Af Amer 71 mL/min >60 [facility] Comment on above: Non- GFR Calc Serum or plasma calcium jonathan urement (mass/volume)Ordered By: Nathanael Maradiaga on 11-15-2022 Calcium [Mass/Vol] 9.6 mg/dL 8.5-10.1 [facility] Serum or plasma creatinine m easurement (mass/volume)Ordered By: Nathanael Maradiaga on 11-15-2022 Creatinine [Mass/Vol] 1.08 mg/dL 0.70-1.30 [facility] Comment on above: The validity of the calculated GFR & GFRAA in patients over 70 years has not been determined. Clinical correlation is essential. Serum or plasma urea nitroge n measurement (mass/volume)Ordered By: Nahtanael Maradiaga on 11-15-2022 Urea nitrogen [Mass/Vol] 31 mg/dL 7-18 [facility] Thin prep Papanicolaou smear with manual screeningOrdered By: Nathanael Maradiaga on 11-15-2022 Thin prep Papanicolaou smear with manual screening 9 5-15 [facility] Whole blood hemoglobin A1c/t otal hemoglobin ratio (mass fraction)Ordered By: Nathanael Maradiaga on 11-15-2022 HbA1c (Bld) [Mass fraction] 6.5 % 3.8-5.6 [facility] Comment on above: Normal < 5.7 % Predi abetic 5.7 - 6.4 % Diabetic >or= 6.5 % Please note range changes. Shawn 11-10-2022 Potassium [Moles/Vol] 5.3 mmol/L High 3.5-5.1 [facility] ([place]) Comment on above: Performed By: #### K #### [address] [address] .Auto Diffon 11-09-2022 Basophil, Absolute 0.0 10 3/mcL Normal 0.0-0.2 [facility] ([place]) Comment on above: Performed By: #### C BC, ANEU, BMP, GFR, ADIFF #### [address] [address] Basophils/100 WBC (Bld) 0.3 % Normal 0.0-2.5 [facility] ([place]) Comment on above: Performed By: #### C BC, ANEU, BMP, GFR, ADIFF #### [address] [address] Eosinophil, Absolute 0.0 10 3/mcL Normal 0.0-0.4 [facility] ([place]) Comment on above: Performed By: #### C BC, ANEU, BMP, GFR, ADIFF #### [address] [address] Eosinophils/100 WBC (Bld) 0.5 % Normal 0.0-7.0 [facility] ([place]) Comment on above: Performed By: #### C BC, ANEU, BMP, GFR, ADIFF #### [address] [address] Lymphocyte, Absolute 1.4 10 3/mcL Normal 0.8-3.9 [facility] ([place]) Comment on above: Performed By: #### C BC, ANEU, BMP, GFR, ADIFF #### [address] [address] Lymphocytes/100 WBC (Bld) 16.4 % Normal 10.0-50.0 [facility] ([place]) Comment on above: Performed By: #### C BC, ANEU, BMP, GFR, ADIFF #### [address] [address] Monocyte, Absolute 0.5 10 3/mcL Normal 0.2-1.0 [facility] ([place]) Comment on above: Performed By: #### C BC, ANEU, BMP, GFR, ADIFF #### [address] [address] Monocytes/100 WBC (Bld) 5.9 % Normal 1.7-13.0 [facility] ([place]) Comment on above: Performed By: #### C BC, ANEU, BMP, GFR, ADIFF #### [address] [address] Neutrophils/100 WBC (Bld) 76.9 % Normal 37.0-80.0 [facility] ([place]) Comment on above: Performed By: #### C BC, ANEU, BMP, GFR, ADIFF #### [address] [address] .GFRon 11-09-2022 GFR 35 ml/min/1.73sqm Normal [facility] ([place]) Comment on above: Result Comment: GFR Population mean for , Non- Americans Ages 20-29 = 116 mL/min/1.73 sq.m. Ages 30-39 = 107 mL/min/1.73 sq.m. Ages 40-49 = 99 mL/min/1.73 sq.m. Ages 50-59 = 93 mL/min/1.73 sq.m. Ages 60-69 = 85 mL/min/1.73 sq.m. Ages 70+ = 75 mL/min/1.73 sq.m. Chronic Kidney Disease: Less than 60 mL/min/1.73 square meters End Stage Renal Disease: Less than 15 mL/min/1.73 square meters Performed By: #### C BC, ANEU, BMP, GFR, ADIFF #### [address] [address] GFR Non- 29 ml/min/1.73sqm Normal [facility] ([place]) Comment on above: Result Comment: GFR Population mean for , Non- Americans Ages 20-29 = 116 mL/min/1.73 sq.m. Ages 30-39 = 107 mL/min/1.73 sq.m. Ages 40-49 = 99 mL/min/1.73 sq.m. Ages 50-59 = 93 mL/min/1.73 sq.m. Ages 60-69 = 85 mL/min/1.73 sq.m. Ages 70+ = 75 mL/min/1.73 sq.m. Chronic Kidney Disease: Less than 60 mL/min/1.73 square meters End Stage Renal Disease: Less than 15 mL/min/1.73 square meters Performed By: #### C BC, ANEU, BMP, GFR, ADIFF #### [address] [address] .NEUABSon 11-09-2022 Neutrophil, Absolute 6.8 10 3/mcL High 2.9-6.2 [facility] ([place]) Comment on above: Performed By: #### C BC, ANEU, BMP, GFR, ADIFF #### [address] [address] BMPon 11-09-2022 BUN/Creatinine Ratio 20 ratio Normal 7-27 [facility] ([place]) Comment on above: Performed By: #### C BC, ANEU, BMP, GFR, ADIFF #### [address] [address] Calcium [Mass/Vol] 9.3 mg/dL Normal 8.4-10.2 [facility] ([place]) Comment on above: Performed By: #### C BC, ANEU, BMP, GFR, ADIFF #### [address] [address] Chloride [Moles/Vol] 103 mmol/L Normal 98-107 [facility] ([place]) Comment on above: Performed By: #### C BC, ANEU, BMP, GFR, ADIFF #### [address] [address] CO2 [Moles/Vol] 32 mmol/L High 23-31 [facility] ([place]) Comment on above: Performed By: #### C BC, ANEU, BMP, GFR, ADIFF #### [address] [address] Creatinine [Mass/Vol] 2.26 mg/dL High 0.70-1.30 [facility] ([place]) Comment on above: Performed By: #### C BC, ANEU, BMP, GFR, ADIFF #### [address] [address] Electrolyte Balance 7.0 mEq/L Normal 4.0-15.0 [facility] ([place]) Comment on above: Performed By: #### C BC, ANEU, BMP, GFR, ADIFF #### [address] [address] Glucose [Mass/Vol] 158 mg/dL High 83-110 [facility] ([place]) Comment on above: Performed By: #### C BC, ANEU, BMP, GFR, ADIFF #### [address] [address] Potassium [Moles/Vol] 6.1 mmol/L Critically abnormal 3.5-5.1 [facility] ([place]) Comment on above: Performed By: #### C BC, ANEU, BMP, GFR, ADIFF #### [address] [address] Sodium [Moles/Vol] 142 mmol/L Normal 136-145 [facility] ([place]) Comment on above: Performed By: #### C BC, ANEU, BMP, GFR, ADIFF #### [address] [address] Urea nitrogen [Mass/Vol] 45 mg/dL High 7-18 [facility] ([place]) Comment on above: Performed By: #### C BC, ANEU, BMP, GFR, ADIFF #### [address] [address] CBCon 11-09-2022 Erythrocyte distribution width (RBC) [Ratio] 12.9 % Normal 11.5-14.5 [facility] ([place]) Comment on above: Performed By: #### C BC, ANEU, BMP, GFR, ADIFF #### [address] [address] Hematocrit (Bld) [Volume fraction] 36.5 % Low 42.0-52.0 [facility] ([place]) Comment on above: Performed By: #### C BC, ANEU, BMP, GFR, ADIFF #### [address] [address] Hgb 12.3 G/dL Low 14.0-18.0 [facility] ([place]) Comment on above: Performed By: #### C BC, ANEU, BMP, GFR, ADIFF #### [address] [address] MCH (RBC) [Entitic mass] 31.7 pg High 27.0-31.2 [facility] ([place]) Comment on above: Performed By: #### C BC, ANEU, BMP, GFR, ADIFF #### [address] [address] MCHC 33.8 G/dL Normal 31.8-35.4 [facility] ([place]) Comment on above: Performed By: #### C BC, ANEU, BMP, GFR, ADIFF #### [address] [address] MCV (RBC) [Entitic vol] 93.9 fL Normal 80.0-94.0 [facility] ([place]) Comment on above: Performed By: #### C BC, ANEU, BMP, GFR, ADIFF #### [address] [address] Platelet 218 10 3/mcL Normal 130-400 [facility] ([place]) Comment on above: Performed By: #### C BC, ANEU, BMP, GFR, ADIFF #### [address] [address] Platelet mean volume (Bld) [Entitic vol] 8.9 fL Normal 7.4-10.4 [facility] ([place]) Comment on above: Performed By: #### C BC, ANEU, BMP, GFR, ADIFF #### [facility] [address] [place], [place] [address] RBC 3.89 10 6/mcL Low 4.04-6.13 [facility] ([place]) Comment on above: Performed By: #### C BC, ANEU, BMP, GFR, ADIFF #### [address] [place], [place] [address] WBC 8.8 10 3/mcL Normal 4.6-10.8 [facility] ([place]) Comment on above: Performed By: #### C BC, ANEU, BMP, GFR, ADIFF #### [address] [place], [place] [address] Basophil percentageOrdered B y: Dr. Maradiaga on 04-12-2022 Basophil percentage < 0.9 mg/dL 0.70-1.30 [facility] No Panel InformationOrdered By: Dr. Maradiaga on 04-12-2022 Bedside Estimated GFR (eGFR) > 60.0000 mL/min >60 [facility] ECG 12 Leadon 03-16-2022 Atrial Rate [facility] [place] [facility] P-R Interval [facility] Q-T Interval [facility] Q-T Interval (corrected) [facility] QRS Duration [facility] QTC Calculation (Bezet) [facility] [place] [facility] T [place] [facility] Ventricular Rate [facility] POC Glucose by reagent strip (Finger Stick)on 03-16-2022 Glucose [Mass/Vol] 176 mg/dL Abnormal 65 - 99 mg/dL [facility] Interpretation and review of laboratory results Abnormal [facility] No Panel Informationon 11-04 Prostate Specific Antigen Screen 3.81 ng/mL 0.00-4.00 [facility] Work Phone: Comment on above: This test was perfor med using the TPSA assay method for the[employer] chemistry system. Values obtained with differentassay methods cannot be used interchangably.When changing PSA assays in the course of monitoring apatient, additional sequential testing should be carriedout to confirm baseline values. No Panel Informationon 09-09 [facility] Clinical Summary: HMSPatient IDon 01-04-2019 [facility] Work Phone: Clinical Lists Update: Prelo ad Extendedon 01-03-2019 Tobacco smoking status NHIS Tobacco smoking status NHIS [facility] Work Phone: Clinical Summary: Scanned Hi story Summaryon 01-03-2019 cause of , father colon cancer [facility] Work Phone: cause of , mother brain cancer [facility] Work Phone: comments about allergies amoxicillin [facility] Work Phone: data entered by patient, alcohol (ethanol or ETOH) use No [facility] Work Phone: Data entered by patient, allergy list PenicillinPlant pollens (Hay Fever)I don't have any Food Allergies [facility] Work Phone: data entered by patient, drug (of abuse) use No [facility] Work Phone: data entered by patient, Employer Name retired [facility] Work Phone: data entered by patient, exercise history No [facility] Work Phone: data entered by patient, father's medical history Cancer [facility] Work Phone: Data entered by patient, history of past surgeries Cervical spine discectomyCervical spine fusionTonsillectomy [facility] Work Phone: Data entered by patient, medication list metformin hcl-1000 mg.-one-two times dailydoxazosin mesylate-4 mg.-one-once dailylosartan potassium-25 mg.-one-once dailyIC Cyclobenzaprine-10 mg.-one-up to 3 times daily as neededsimvastatin-10 mg.-one-once dailyhydrocodone bitartrate and acetaminophen tkqrrbd-7-883 mg.-one-up to 4 times daily as neededpropranolol ER-120 mg.-one-once dailybactrim-160 mg.-one-every 12 hrs. for seven dayslocoid lipocream-0.1% hydrocodone scptpeua-yjdwpf-gii times daily as needednystatin-100,000 Units LONGTERM ghydj-qgpwv-jiitr liberally-two times daily as neededcentrum vnhdjc-qyuzd-fxlahqt-on e-one time dailyomega 3 fish oil-600 mgs.-one-two times dailybayer back and body-500 mgs.-two-up to four times daily as neededbenedryl-25 mgs.-one or two-up to six times daily as neededeye drops-Nephazoline HCI (0.06834%) Pneniramine maleate (0.315%)-one or two drops-up to four times daily as needed [facility] Work Phone: data entered by patient, mother's medical history Cancer [facility] Work Phone: data entered by patient, past medical history Diabetes - non-insulin dependentObesity [facility] Work Phone: data entered by patient, social history, current smoker never smoker [facility] Work Phone: data entered by patient, social history, marital status [facility] Work Phone: father of patient is alive or [facility] Work Phone: Housing Type: apartment, house, jail, trailer, none house [facility] Work Phone: housing unit size (asthma environmental history, housing) (from single family to don't know) 3 floors [facility] Work Phone: medical history of patient's brother(s) My brother's health history is unknown [facility] Work Phone: medical history of patient's sister MelanomaObesity [facility] Work Phone: mother of patient is alive or [facility] Work Phone: Number of dependent children No [facility] Work Phone: Web entered surgical history comments nathanael removed from neck at 6-7 years of age, Urolift procedure on 06/02/2017, treatments for kidney stones, colonoscopies, minor surgery for cyst removal, one squamus cell carcinoma removed [facility] Work Phone: Vital Signs Date Time Vital Sign Value Performing Clinician Facility 11-20-2024 16:30-0400 Body temperature 97 [degF] Dr. Nathanael Maradiaga DO Work Phone: [facility] 11-20-2024 16:30-0400 Diastolic blood pressure 67 mm[Hg] Dr. Nathanael Maradiaga DO Work Phone: [facility] 11-20-2024 16:30-0400 Heart rate 60 /min Dr. Nathanael Maradiaga DO Work Phone: [facility] 11-20-2024 16:30-0400 Respiratory rate 16 /min Dr. Nathanael Maradiaga DO Work Phone: [facility] 11-20-2024 16:30-0400 SaO2% (BldA) [Mass fraction] 94 % Dr. Nathanael Maradiaga DO Work Phone: [facility] 11-20-2024 16:30-0400 Systolic blood pressure 146 mm[Hg] Dr. Nathanael Maradiaga DO Work Phone: [facility] 11-20-2024 16:15-0400 Inhaled oxygen flow rate 2 L/min Dr. Nathanael Maradiaga DO Work Phone: [facility] 11-20-2024 13:01-0400 Body height 170.[address] Nathanael Maradiaga DO Work Phone: [facility] 11-20-2024 13:01-0400 Body mass index (BMI) [Ratio] 31.7 kg/m2 Dr. Nathanael Maradiaga DO Work Phone: [facility] 11-20-2024 13:01-0400 Body weight [address] Nathanael Maradiaga DO Work Phone: [facility] 09-06-2024 10:30-0400 Diastolic blood pressure 76 mm[Hg] Minh Gerber MD Work Phone: [facility] 09-06-2024 10:30-0400 Heart rate 70 /min Minh Gerber MD Work Phone: [facility] 09-06-2024 10:30-0400 Respiratory rate 16 /min Minh Gerber MD Work Phone: [facility] 09-06-2024 10:30-0400 SaO2% (BldA) [Mass fraction] 95 % Minh Gerber MD Work Phone: [facility] 09-06-2024 10:30-0400 Systolic blood pressure 157 mm[Hg] Minh Gerber MD Work Phone: [facility] 09-06-2024 09:21-0400 Body mass index (BMI) [Ratio] 34.37 kg/m2 Minh Gerber MD Work Phone: [facility] 09-06-2024 09:21-0400 Body temperature 97.39 [degF] Minh Gerber MD Work Phone: [facility] 09-06-2024 09:21-0400 Body weight 96.6 kg Minh Gerber MD Work Phone: [facility] 08-22-2024 14:31-0400 Body height 170.[address] Nathanael Maradiaga DO Work Phone: [facility] 08-22-2024 14:31-0400 Body mass index (BMI) [Ratio] 33.3 kg/m2 Dr. Nathanael Maradiaga DO Work Phone: [facility] 08-22-2024 14:31-0400 Body weight 96.[address] Nathanael Maradiaga DO Work Phone: [facility] 08-12-2024 14:16-0400 Body height 167.6 cm Karly Jenny GUI DEVELOPER.POWER PRESS TENDER Work Phone: [facility] 08-12-2024 14:16-0400 Body mass index (BMI) [Ratio] 34.38 kg/m2 Karly Jenny GUI DEVELOPER.POWER PRESS TENDER Work Phone: [facility] 08-12-2024 14:16-0400 Body weight 96.62 kg Karly Jenny GUI DEVELOPER.POWER PRESS TENDER Work Phone: [facility] 08-12-2024 14:16-0400 Diastolic blood pressure 79 mm[Hg] Karly Jenny GUI DEVELOPER.POWER PRESS TENDER Work Phone: [facility] 08-12-2024 14:16-0400 Heart rate 82 /min Karly Jenny GUI DEVELOPER.POWER PRESS TENDER Work Phone: [facility] 08-12-2024 14:16-0400 SaO2% (BldA) [Mass fraction] 98 % Karly Jenny GUI DEVELOPER.POWER PRESS TENDER Work Phone: [facility] 08-12-2024 14:16-0400 Systolic blood pressure 152 mm[Hg] Karly Jenny GUI DEVELOPER.POWER PRESS TENDER Work Phone: [facility] 07-11-2024 11:53-0400 Body temperature 98.1 [degF] Dr. Nathanael Maradiaga DO Work Phone: [facility] 07-11-2024 11:53-0400 Diastolic blood pressure 77 mm[Hg] Dr. Nathanael Maradiaga DO Work Phone: [facility] 07-11-2024 11:53-0400 Heart rate 79 /min Dr. Nathanael Maradiaga DO Work Phone: [facility] 07-11-2024 11:53-0400 Respiratory rate 18 /min Dr. Nathanael Maradiaga DO Work Phone: [facility] 07-11-2024 11:53-0400 SaO2% (BldA) [Mass fraction] 95 % Dr. Nathanael Maradiaga DO Work Phone: [facility] 07-11-2024 11:53-0400 Systolic blood pressure 156 mm[Hg] Dr. Nathanael Maradiaga DO Work Phone: [facility] 07-10-2024 16:05-0400 Inhaled oxygen flow rate 2 L/min Dr. Nathanael Maradiaga DO Work Phone: [facility] 07-10-2024 13:51-0400 Body height 170.[address] Nathanael Maradiaga DO Work Phone: [facility] 07-10-2024 13:51-0400 Body mass index (BMI) [Ratio] 34.5 kg/m2 Dr. Nathanael Maradiaga DO Work Phone: [facility] 07-10-2024 13:51-0400 Body weight [address] Nathanael Maradiaga DO Work Phone: [facility] 07-04-2024 13:32-0400 Body mass index (BMI) [Ratio] 35.2 kg/m2 Dr. Nathanael Maradiaga DO Work Phone: [facility] 07-04-2024 13:32-0400 Body weight 98.[address] Nathanael Maradiaga DO Work Phone: [facility] 04-09-2024 12:56-0500 Body mass index (BMI) [Ratio] 34.7 kg/m2 Dr. Nathanael Maradiaga DO Work Phone: [facility] 04-09-2024 12:56-0500 Body weight 97.[address] Nathanael Maradiaga DO Work Phone: [facility] 01-02-2023 16:42-0400 Diastolic blood pressure 66 mm[Hg] [facility] 01-02-2023 16:42-0400 Heart rate 74 /min [facility] 01-02-2023 16:42-0400 SaO2% (BldA) [Mass fraction] 95 % [facility] 01-02-2023 16:42-0400 Systolic blood pressure 142 mm[Hg] [facility] 01-02-2023 13:02-0400 Body height 167.64 cm [facility] 01-02-2023 13:02-0400 Body mass index (BMI) [Ratio] 34.3 kg/m2 [facility] 01-02-2023 13:02-0400 Body temperature 97.6 [degF] [facility] 01-02-2023 13:02-0400 Body weight 96.6 kg [facility] 01-02-2023 13:02-0400 Respiratory rate 21 /min [facility] 12-12-2022 21:19-0400 Heart rate 82 /min [facility] 12-12-2022 21:19-0400 Respiratory rate 20 /min [facility] 12-12-2022 21:07-0400 Diastolic blood pressure 89 mm[Hg] [facility] 12-12-2022 21:07-0400 SaO2% (BldA) [Mass fraction] 93 % [facility] 12-12-2022 21:07-0400 Systolic blood pressure 157 mm[Hg] [facility] 12-12-2022 19:08-0400 Body height 167.64 cm [facility] 12-12-2022 19:08-0400 Body mass index (BMI) [Ratio] 35 kg/m2 [facility] 12-12-2022 19:08-0400 Body temperature 96.8 [degF] [facility] 12-12-2022 19:08-0400 Body weight 98.5 kg [facility] 12-09-2022 10:08-0400 SaO2% (BldA) [Mass fraction] 97 % [facility] 12-09-2022 10:00-0400 Body temperature 97.5 [degF] [facility] 12-09-2022 10:00-0400 Diastolic blood pressure 62 mm[Hg] [facility] 12-09-2022 10:00-0400 Heart rate 60 /min [facility] 12-09-2022 10:00-0400 Inhaled oxygen flow rate 2 L/min [facility] 12-09-2022 10:00-0400 Respiratory rate 16 /min [facility] 12-09-2022 10:00-0400 Systolic blood pressure 147 mm[Hg] [facility] 12-09-2022 06:21-0400 Body height 167.64 cm [facility] 12-09-2022 06:21-0400 Body mass index (BMI) [Ratio] 34.2 kg/m2 [facility] 12-09-2022 06:21-0400 Body weight 96.3 kg [facility] 03-16-2022 09:13-0500 Diastolic blood pressure 84 mm[Hg] Lucas Aaron DO Work Phone: [facility] 03-16-2022 09:13-0500 Systolic blood pressure 145 mm[Hg] Lucas Aaron DO Work Phone: [facility] 03-16-2022 09:06-0500 Body height 167.6 cm Lucas Aaron DO Work Phone: [facility] 03-16-2022 09:06-0500 Body mass index (BMI) [Ratio] 33.57 kg/m2 Lucas Aaron DO Work Phone: [facility] 03-16-2022 09:06-0500 Body temperature 98.2 [degF] Lucas Aaron DO Work Phone: [facility] 03-16-2022 09:06-0500 Body weight 94.35 kg Lucas Aaron DO Work Phone: [facility] 03-16-2022 09:06-0500 Heart rate 70 /min Lucas Aaron DO Work Phone: [facility] 03-16-2022 09:06-0500 Respiratory rate 16 /min Lucas Aarno DO Work Phone: [facility] 03-16-2022 09:06-0500 SaO2% (BldA) [Mass fraction] 98 % Lucas Aaron DO Work Phone: [facility] 09-27-2021 14:07-0400 Diastolic blood pressure 82 mm[Hg] Jerri Granite PA-C Work Phone: [facility] 09-27-2021 14:07-0400 Systolic blood pressure 152 mm[Hg] Jerri Granite PA-C Work Phone: [facility] 09-27-2021 13:42-0400 Body height 167.6 cm Jerri Sarath PA-C Work Phone: [facility] 09-27-2021 13:42-0400 Body temperature 97.7 [degF] Jerri Granite PA-C Work Phone: [facility] 09-27-2021 13:42-0400 Body weight 98.88 kg Jerri Sarath PA-C Work Phone: [facility] 09-27-2021 13:42-0400 Heart rate 73 /min Jerri Granite PA-C Work Phone: [facility] 09-27-2021 13:42-0400 SaO2% (BldA) [Mass fraction] 98 % Jerri Sarath PA-C Work Phone: [facility] 09-09-2021 09:25-0400 Diastolic blood pressure 58 mm[Hg] Minh Gerber MD Work Phone: [facility] 09-09-2021 09:25-0400 Heart rate 61 /min Minh Gerber MD Work Phone: [facility] 09-09-2021 09:25-0400 SaO2% (BldA) [Mass fraction] 96 % Minh Gerber MD Work Phone: [facility] 09-09-2021 09:25-0400 Systolic blood pressure 166 mm[Hg] Minh Gerber MD Work Phone: [facility] 09-09-2021 09:11-0400 Respiratory rate 16 /min Minh Gerber MD Work Phone: [facility] 09-09-2021 07:33-0400 Body temperature 97.11 [degF] Minh Gerber MD Work Phone: [facility] 08-03-2021 13:48-0400 Body height 167.6 cm Jerri Sarath PA-C Work Phone: [facility] 08-03-2021 13:48-0400 Body temperature 97.39 [degF] Jerri Sarath PA-C Work Phone: [facility] 08-03-2021 13:48-0400 Body weight 98.88 kg Jerri Granite PA-C Work Phone: [facility] 08-03-2021 13:48-0400 Diastolic blood pressure 84 mm[Hg] Jerri Granite PA-C Work Phone: [facility] 08-03-2021 13:48-0400 Heart rate 75 /min Jerri Granite PA-C Work Phone: [facility] 08-03-2021 13:48-0400 SaO2% (BldA) [Mass fraction] 96 % Jerri Sarath PA-C Work Phone: [facility] 08-03-2021 13:48-0400 Systolic blood pressure 123 mm[Hg] Jerri Granite PA-C Work Phone: [facility] NEGATED: Highlighted [id number] 09:51-0400 BMI (Body Mass Index) 36.61 kg/m2 Carla Lester AT [facility] Work Phone: NEGATED: Highlighted [id number] 09:51-0400 Body weight 102.51 kg Carla Trevon AT [facility] Work Phone: NEGATED: Highlighted [id number] 09:51-0400 Body weight 103 kg Carla Lester AT [facility] Work Phone: NEGATED: Highlighted [id number] 09:51-0400 BP Diastolic 78 mm[Hg] Carla Lester AT [facility] Work Phone: NEGATED: Highlighted [id number] 09:51-0400 BP Systolic 135 mm[Hg] Carla Lester AT [facility] Work Phone: NEGATED: Highlighted [id number] 09:51-0400 Height 167.64 cm Carla Lester AT [facility] Work Phone: NEGATED: Highlighted [id number] 09:51-0400 Height 168 cm Carla Lester AT [facility] Work Phone: NEGATED: Highlighted [id number] 09:51-0400 Pulse (Heart Rate) 71 /min Carla Lester AT [facility] Work Phone: Encounters Encounter Date Encounter Type Care Provider Facility Start: 01-23-2025 ambulatory [facility] Facility: [facility] Start: 12-18-2024 ambulatory [facility] Facility: [facility] Start: 11-25-2024 [place] [facility] Start: 11-20-2024 End: 11-20-2024 Admission to same day surgery center Dr. Duke Trinh MD -[facility] Start: 11-20-2024 End: 11-20-[address] Nathanael Maradiaga DO Work Phone: -[facility] Start: 11-11-2024 End: 11-11-[address] Nathanael Maradiaga DO Work Phone: -Cat Scan [facility] Start: 11-11-2024 End: 11-11-2024 Patient encounter procedure Esthela Leo -Cat Scan [facility] Work Phone: Start: 11-11-2024 End: 11-11-2024 ambulatory [facility] Facility:[facility] Start: 10-18-2024 End: 10-18-[address] Tha Mcghee MD -[facility] Start: 10-18-2024 End: 10-18-[address] Nathanael Maradiaga DO Work Phone: -[facility] Start: 09-13-2024 End: 09-13-2024 Patient encounter procedure Karly Alvarado APRN.POWER PRESS TENDER Work Phone: General Surgery Comment on above: Adenomatous polyp (P rimary Dx) Start: 09-13-2024 End: 09-13-2024 ambulatory NATHANAEL MARADIAGA Facility:[facility] Start: 09-12-2024 End: 11-12-2024 Follow-up encounter Karly Alvarado APRN.POWER PRESS TENDER Work Phone: General Surgery Start: 09-06-2024 ambulatory NATHANAEL MARADIAGA Facilit y:[facility] Start: 09-06-2024 End: 09-06-2024 Subsequent hospital visit by physician Minh Gerber MD Work Phone: Ambulatory Surgery Comment on above: Screen for colon can cer [Z12.11] Start: 08-22-2024 End: 08-22-[address] Tha Mcghee MD -[facility] Start: 08-22-2024 End: 08-22-[address] Nathanael Maradiaga DO Work Phone: [facility] Work Phone: Start: 08-12-2024 End: 08-12-2024 Patient encounter procedure Karly Alvarado APRN.POWER PRESS TENDER Work Phone: General Surgery Comment on above: Screen for colon can cer (Primary Dx); History of colonic polyps; Family history of colon cancer Start: 08-12-2024 End: 08-12-2024 ambulatory NATHANAEL Colin ASHWINI Facility:[facility] Start: 07-26-2024 Encounter for other preprocedural examination Alexandre Yip [facility] Start: 07-25-2024 End: 07-25-[address] Alexandre Yip MD -[facility] Work Phone: Start: 07-25-2024 End: 07-25-2024 ambulatory Nathanael Ashwini [facility] Start: 07-11-2024 Non-patient / Non-visit Florina KYLE -[facility] Start: 07-11-2024 Non-patient / Non-visit Dr. Morro Andres MD -[facility] Work Phone: Start: 07-10-2024 Non-patient / Non-visit Dr. Venessa Neves MD -[facility] Work Phone: Start: 07-10-2024 End: 07-11-2024 ambulatory Racheal Neves Facility:[facility] Start: 07-10-2024 End: 07-11-2024 Evaluation and management of inpatient Dr. Alexandre Yip MD -[facility] 3 Work Phone: Start: 07-10-2024 End: 07-11-[address] Nathanael Maradiaga DO Work Phone: [facility] Work Phone: Start: 07-10-2024 ambulatory Alexandre Yip Facility:[facility] Start: 07-10-2024 Non-patient / Non-visit Dr. Alexandre bazan MD -[facility] Start: 07-04-2024 End: 07-04-[address] Alexandre Yip MD -[facility] Work Phone: Start: 07-04-2024 End: 07-04-2024 ambulatory Nathanael Maradiaga Facility:[facility] Start: 06-27-2024 End: 06-27-2024 ambulatory Alexandre Yip Facility:[facility] Start: 06-27-2024 End: 06-27-2024 Non-patient / Non-visit Dr. Tha Mcghee MD -[facility] Work Phone: Start: 05-17-2024 End: 05-17-[address] Alexandre Yip MD -[facility] Work Phone: Start: 05-17-2024 End: 05-17-2024 ambulatory Nathanael Maradiaga Facility:[facility] Start: 04-09-2024 End: 04-09-[address] Alexandre Yip MD [facility] Work Phone: Start: 04-09-2024 End: 04-09-2024 ambulatory [facility] Start: 02-15-2024 ambulatory [facility] Facility: [facility] Start: 02-14-2024 Encounter for preprocedural laboratory examination [facility] Start: 01-24-2024 Encounter for preprocedural laboratory examination [facility] Start: 01-24-2024 ambulatory [facility] Facility: [facility] Start: 01-23-2024 End: 01-23-2024 ambulatory [facility] Facility:[facility] Start: 08-07-2023 End: 08-07-2023 ambulatory [facility] Work Phone: Start: 08-07-2023 End: 08-07-2023 Patient encounter procedure [facility]-Laboratory Work Phone: Start: 06-23-2023 End: 06-23-2023 ambulatory [facility] Work Phone: Start: 06-23-2023 End: 06-23-2023 Patient encounter procedure [facility] Scan, [facility] Work Phone: Start: 01-02-2023 End: 01-02-2023 Emergency department patient visit [facility]-Emergency Department Work Phone: Start: 12-12-2022 End: 12-12-2022 Emergency department patient visit [facility]-Emergency Department Work Phone: Start: 12-09-2022 End: 12-09-2022 Admission to same day surgery center [facility] Start: 12-09-2022 End: 12-09-2022 ambulatory [facility] Work Phone: Start: 11-30-2022 End: 11-30-2022 ambulatory [facility] Work Phone: Start: 11-30-2022 End: 11-30-2022 Patient encounter procedure [facility]-Laboratory Work Phone: Start: 11-15-2022 End: 11-15-2022 ambulatory [facility] Work Phone: Start: 11-15-2022 End: 11-15-2022 Patient encounter procedure [facility] Start: 11-10-2022 End: 11-11-[address] DUKE TRINH MD Facility:[facility] Start: 11-09-2022 End: 11-10-[address] DUKE TRINH MD Facility:[facility] Start: 10-31-2022 End: 10-31-2022 ambulatory [facility] Work Phone: Start: 10-31-2022 End: 10-31-2022 Patient encounter procedure [facility]-Radiology, [facility] Work Phone: Start: 09-27-2022 End: 09-27-2022 ambulatory [facility] Work Phone: Start: 09-27-2022 End: 09-27-2022 Patient encounter procedure [facility]-MRI - [facility] Start: 04-12-2022 End: 04-12-2022 ambulatory [facility] Work Phone: Start: 04-12-2022 End: 04-12-2022 Patient encounter procedure [facility]-MRI - [facility] Start: 03-16-2022 End: 03-16-2022 ambulatory PHYSICIAN NO [facility] Start: 03-16-2022 End: 03-16-2022 Encounter for other preprocedural examination LUCAS AARON [facility] Start: 03-16-2022 End: 03-16-2022 Office outpatient new 30 minutes Lucas Aaron DO Work Phone: [facility] Eye Pre admision Testing Comment on above: Pre-op examination ( Primary Dx); Myogenic ptosis of bilateral eyelids; Essential hypertension; Mixed hyperlipidemia; Type 2 diabetes mellitus with other ophthalmic complication, without long-term current use of insulin (HCC) Start: 03-16-2022 End: 03-16-2022 Preprocedural examination done Lucas Aaron DO Work Phone: [facility] Eye Pre admision Testing Start: 03-07-2022 End: 03-07-2022 Patient encounter procedure [facility]-Cat Scan, [facility] Start: 02-08-2022 End: 02-08-2022 ambulatory [facility] Work Phone: Start: 02-08-2022 End: 02-08-2022 Discharged Recurring [facility]-Physical Therapy Start: 11-04-2021 End: 11-04-2021 Patient encounter procedure [facility]-Laboratory Start: 10-01-2021 End: 10-01-2021 Patient encounter procedure [facility]-Cardiovascula r Services Start: 09-27-2021 End: 09-27-2021 Patient encounter procedure Jerri Clemens PA-C Work Phone: General Surgery Comment on above: Tubular adenoma (Angelina joann Dx); Family history of colon cancer; History of colonic polyps Start: 09-09-2021 End: 09-09-2021 Subsequent hospital visit by physician Minh Gerber MD Work Phone: Ambulatory Surgery Comment on above: History of colonic p olyps [Z86.010] Start: 08-03-2021 Telephone encounter Jerri kirk PA-C Work Phone: General Surgery Comment on above: 08-19-2021 [facility] Start: 08-03-2021 End: 08-03-2021 Patient encounter procedure Jerri Clemens PA-C Work Phone: General Surgery Comment on above: Encounter for screen ing for malignant neoplasm of colon (Primary Dx); Personal history of colonic polyps; Family history of colon cancer Start: 05-21-2019 Patient encounter status [facility] Start: 01-04-2019 End: 01-04-2019 Pt evaluation Ra Peterson MD Work Phone: [facility] Work Phone: Procedures Date Procedure Procedure Detail Performing Clinician Start: 11-20-2024 Extracorporeal shock wave lithotripsy Dr. Nathanael Maradiaga DO Work Phone: Start: 11-20-2024 Plain X-ray abdomen Dr. Nathanael Maradiaga DO Work Phone: Start: 11-11-2024 CT of abdomen and pe lvis without contrast Dr. Nathanael Maradiaga DO Work Phone: Start: 10-18-2024 X-ray of cervical spine Dr. Nathanael Maradiaga DO Work Phone: Start: 09-06-2024 Colonoscopy flx dx w /collj spec when pfrmd Karly Alvarado GUI DEVELOPER.POWER PRESS TENDER Work Phone: Start: 09-06-2024 Colonoscopy Minh stratton MD Work Phone: Start: 08-22-2024 X-ray of cervical spine Dr. Nathanael Maradiaga DO Work Phone: Start: 07-25-2024 X-ray of cervical spine Dr. Nathanael Maradiaga DO Work Phone: Start: 07-11-[address] Nathanael Maradiaga DO Work Phone: Start: 07-11-2024 X-ray of cervical spine Dr. Nathanael Maradiaga DO Work Phone: Start: 07-10-2024 Cervical arthrodesis by anterior technique Dr. Nathanael Maradiaga DO Work Phone: Start: 07-10-2024 Fluoroscopic guidance Mary Ann Maradiaga DO Work Phone: Start: 07-10-2024 X-ray of cervical spine Dr. Nathanael Maradiaga DO Work Phone: Start: 06-27-2024 Methicillin resistan t Staphylococcus aureus screening test Dr. Nathanael Maradiaga DO Work Phone: Start: 06-27-2024 Hepatitis A virus an tibody, total measurement Dr. Nathanael Maradiaga DO Work Phone: Comment on above: Comment: The HAV tot al antibody assay detects both IgG andIgM but does not differentiate between them. A negativeresult suggests susceptibility to infection. A positiveresult could be due to vaccination, previously resolvedinfection or active infection. Testing for HAV IgM shouldbe performed if active HAV infection is suspected. [facility] that will automatically reflex positive HAVtotal antibody results to IgM (e.g., panel #[id number] HAVAntibody w/ Rfx).Performed at: [facility] [address] [id number] Director: Kamlesh [place] PhD, Phone: [phone] Start: 06-27-2024 Hepatitis C antibody measurement Dr. Nathanael Maradiaga DO Work Phone: Comment on above: Reactive: Presumptiv e evidence of antibodies to HCV. Follow CDC recommendations for supplemental testing.Non-Reactive: Antibodies to HCV were not detected; does not exclude the possibility of exposure to HCVReactive Results are presumptive evidence of antibodies to HCV. Follow CDC recommendations for supplemental testing.Order confirmation testing: HCV Quant by PCR testing - HCVPCR #[id number] Non Reactive: < 0.8 Equivocal: >/= 0.8 to < 1.0 Reactive: >/= 1.0The CDC requires that a reactive/equivocal HCV antibody result be sent out for confirmation. HCV Quant by PCR testing. Start: 05-17-2024 X-ray of cervical spine Dr. Nathanael Maradiaga DO Work Phone: Start: 04-09-2024 X-ray of lumbosacral spine Dr. Nathanael Maradiaga DO Work Phone: Start: 06-23-2023 CT of abdomen and pe lvis without contrast Start: 01-02-2023 CT of head without contrast Start: 12-12-2022 Plain x-ray of elbow Start: 12-12-2022 Plain chest X-ray Start: 12-12-2022 CT of abdomen and pe lvis without contrast Start: 12-12-2022 Bacteria identified in Blood by Culture Start: 12-12-2022 Urine culture Start: 12-09-2022 Percutaneous,Nephros tolitho my (Right) Start: 12-09-2022 CT of abdomen and pe lvis without contrast Start: 10-31-2022 X-ray of lumbar spin e, two or three views Start: 09-27-2022 MRI of thoracic spine Start: 04-12-2022 MRI of brain with contrast Start: 03-16-2022 Ecg routine ecg w/le ast 12 lds w/i&r Lucas Aaron DO Work Phone: Start: 03-16-2022 Gluc bld gluc mntr d ev cleared fda spec home use Lucas Aaron DO Work Phone: Start: 03-07-2022 CT of face Start: 09-09-2021 Colon ca scrn not hi rsk ind Jerri [employer] Work Phone: Start: 09-09-2021 Colonoscopy Minh stratton MD Work Phone: Start: 05-26-2014 Colonoscopy [employer] Work Phone: NEGATED: Highlighted rowStart: 01-04-2019 End: 01-04-2019 Documentation of current medications Carla Lester AT Plan of Treatment Date Care Activity Detail Author Start: 09-10-2031 Screening for malign ant neoplasm of colon [facility] Start: 09-06-2029 Screening for malign ant neoplasm of colon [facility] Start: 09-07-2027 Screening for malign ant neoplasm of colon [facility] Start: 09-09-2026 Colonoscopy COLONOSCOPY [facility] Start: 09-09-2026 COLORECTAL CANCER SCREENING COLORECTAL CANCER SCREENING [facility] Start: 12-09-2024 Influenza vaccination Influenza Vacc ine (#1) [facility] Start: 11-20-2024 Taking patient vital signs [facility] Start: 11-20-2024 End: 11-20-2024 [facility] Start: 11-20-2024 Ambulation without limitation [facility] Start: 11-20-2024 Medication education [facility] Start: 11-20-2024 End: 11-20-2024 Patient discharge [facility] Start: 10-18-2024 X-ray of cervical spine Cerv Spine 2 or 3 Views [facility] Start: 10-18-2024 XR Cervical spine 2 or 3 Views [facility] Start: 09-26-2024 Covid-19 Vaccine () Covid-19 Vaccine () [facility] Start: 09-13-2024 End: 09-13-2024 Patient encounter procedure 09/13/2024 3:00 PM EDT Office Visit General Surgery [address] [place] [id number] Karly Alvarado APRN.POWER PRESS TENDER [address] [place] [address] 09/06 Colonoscopy Follow Up General Surgery Comment on above: 09/06 Colonoscopy Fo llow Up Start: 09-09-2024 Colonoscopy COLONOSCOPY [facility] Start: 09-09-2024 COLORECTAL CANCER SCREENING COLORECTAL CANCER SCREENING [facility] Start: 09-09-2024 Screening for malign ant neoplasm of colon [facility] Start: 09-06-2024 End: 09-06-2024 Patient encounter procedure 09/06/2024 10:15 AM EDT Appointment Ambulatory Surgery [address] [place] [address] Minh Gerber MD [address] [place] [address] COLONOSCOPY Ambulatory Surgery Comment on above: COLONOSCOPY Start: 08-22-2024 X-ray of cervical spine Cerv Spine 2 or 3 Views [facility] Start: 08-22-2024 XR Cervical spine 2 or 3 Views [facility] Start: 07-25-2024 Patient referral [facility] Work Phone: Start: 07-11-2024 Patient discharge [facility] Start: 07-11-2024 Catheterization of vein [facility] Start: 07-11-2024 Application of intermittent pneumatic compression device [facility] Start: 07-10-2024 [facility] Start: 07-10-2024 Following clinical pathway protocol [facility] Start: 07-10-2024 Allograft for spine surgery only structural SP BONE ALGRFT STRUCT ADD-ON [facility] Start: 07-10-2024 Anesthesia extensive spine & spinal cord ANESTH SPINE CORD SURGERY [facility] Start: 07-10-2024 Anterior instrumenta tion 2-3 vertebral segments INSERT SPINE FIXATION DEVICE [facility] Start: 07-10-2024 Arthrd ant interbody decompress cervical belw c2 ARTHRD ANT NTRBDY CERVICAL [facility] Start: 07-10-2024 Arthrd ant interdy c ervcl belw c2 ea addl ntrspc ARTHRD ANT NTRBD CERVICAL EA [facility] Start: 07-10-2024 Following clinical pathway protocol [facility] Start: 07-10-2024 Application of device W [facility] Start: 07-10-2024 Consultation [facility] Start: 07-10-2024 Admission procedure [facility] Start: 07-10-2024 Assessment of risk o f venous thromboembolism [facility] Start: 07-10-2024 Following clinical pathway protocol [facility] Start: 07-10-2024 Incentive spirometry [facility] Start: 07-10-2024 Introduction of urin macrina catheter [facility] Start: 07-10-2024 Measuring intake and output [facility] Start: 07-10-2024 Neurovascular assessment [facility] Start: 07-10-2024 Oxygen therapy [facility] Start: 07-10-2024 Patient education [facility] Start: 07-10-2024 Provision of activit y privileges [facility] Start: 07-10-2024 Referral to occupati onal therapist [facility] Start: 07-10-2024 Referral to service [facility] Start: 07-10-2024 Taking patient vital signs [facility] Start: 07-10-2024 End: 07-10-2024 [facility] Start: 05-23-2024 Shingrix Vaccine (2 of 2) Carney grix Vaccine (2 of 2) [facility] Start: 04-10-2024 Advance Directive Discussion Advance Directive Discussion [facility] Start: 01-17-2023 Pneumococcal Vaccine : Age 65+ (2 - PCV) Pneumococcal Vaccine: Age 65+ (2 - PCV) [facility] Start: 01-09-2023 DIABETES SCREEN DIABETES SCREEN [facility] Start: 01-09-2023 Diabetes Screening Diabetes Screenin g [facility] Start: 01-02-2023 Bacteria identified in Urine by Culture Urine Culture [facility] Start: 01-02-2023 [facility] Start: 12-12-2022 [facility] Start: 12-12-2022 End: 12-12-2022 Blood culture [facility] Start: 12-12-2022 Bacteria identified in Blood by Culture Blood Culture [facility] Start: 12-12-2022 Bacteria identified in Urine by Culture Urine Culture [facility] Start: 12-09-2022 Anes lithotrp xtrcor p shock wave w/o water bath ANESTH KIDNEY STONE DESTRUCT [facility] Start: 12-09-2022 Cysto/uretero w/lithotripsy &indwell stent insrt CYSTO/URETERO W/LITHOTRIPSY [facility] Start: 12-09-2022 Patient discharge [facility] Start: 12-09-2022 Ambulation without limitation [facility] Start: 12-09-2022 Medical regimen orde rs management [facility] Start: 12-09-2022 Medication education [facility] Start: 12-09-2022 Taking patient vital signs [facility] Start: 12-09-2022 [facility] Start: 12-09-2021 Influenza vaccination INFLUENZ A (Season Ended) [facility] Start: 07-07-2021 COVID-19 VACCINE (4 - Booster for Moderna series) COVID-19 VACCINE (4 - Booster for Moderna series) [facility] Start: 04-10-2021 ADVANCE DIRECTIVE DISCUSSION ADVANCE DIRECTIVE DISCUSSION [facility] Start: 05-26-2019 Colonoscopy COLONOSCOPY [facility] Start: 05-26-2019 COLORECTAL CANCER SCREENING COLORECTAL CANCER SCREENING [facility] Start: 01-04-2019 End: 01-04-2019 Appointment Appointment [facility] Work Phone: Start: 11-09-2015 Medicare Annual Well ness Visit Medicare Annual Wellness Visit [facility] Start: 08-17-2015 Fall risk assessment Falls Risk Asse ssment [facility] Start: 08-17-2015 PNEUMOCOCCAL: 65+ (1 - PCV) PNEUMOCOCCAL: 65+ (1 - PCV) [facility] Start: 08-17-2015 PNEUMOVAX AGE 65 AND OVER WITH 5YR LOOKBACK (#1) PNEUMOVAX AGE 65 AND OVER WITH 5YR LOOKBACK (#1) [facility] Start: 2000 Administration of he rpes zoster vaccine Zoster Vaccines (1 of 2) [facility] Start: 2000 Screening for malign ant neoplasm of colon Flexible sigmoidoscopy [facility] Start: 2000 SHINGRIX VACCINE (1 of 2) CARNEY GRIX VACCINE (1 of 2) [facility] Start: 08-17-1995 COLOGUARD (FIT-DNA) COLOGUARD (FIT-D NA) [facility] Start: 08-17-[address] COLONOGRAPHY [facility] Start: 08-17-1995 FECAL OCCULT BLOOD FECAL OCCULT BLOO D [facility] Start: 08-17-1995 Screening for malign ant neoplasm of colon [facility] Start: 08-17-1995 SIGMOIDOSCOPY SIGMOIDOSCOPY [facility] Start: 1985 Lipid panel Lipid Screening [facility] Start: 1985 LIPID SCREEN LIPID SCREEN [facility] Start: 1969 Urine microalbumin profile [facility] Start: 1968 Anxiety Screening Anxiety Screening [facility] Start: 1968 Depression Screening Depression Scre ening [facility] Start: 1968 HEPATITIS C SCREENING HEPATITIS C SC [facility] Start: 1968 Hepatitis C screening Hepatitis C Sc [facility] Start: 1962 Adult depression screening assessment [facility] Start: 1953 History and physical examination, annual for health maintenance Wellness Visit [facility] Start: 1950 Prostate specific an tigen measurement PSA Level [facility] Start: 1950 Screening for malign ant neoplasm of colon [facility] Start: 1950 Tetanus vaccination Tetanus: Every 1 0yrs [facility] Patient Education [facility] [place] [facility] Work Phone: Patient referral [facility] Work Phone: End: 08-12-2025 Screening colonoscopy COLONOSCOPY SCREENING Endoscopy Routine Screen for colon cancer History of colonic polyps 1 Occurrences starting 08/12/2024 until 08/12/2025 [facility] Work Phone: Comment on above: 1 Occurrences starti ng 08/12/2024 until 08/12/2025 SURGICAL PATHOLOGY [facility] Work Phone: Comment on above: Release Upon Gena g for 1 Occurrences starting 09/09/2021, 1 completed Tissue Pathology bio psy report [facility] Work Phone: Comment on above: Release Upon Darenin g for 1 Occurrences starting 09/06/2024, 1 [facility] Immun[facility] Immunization Date Immunization Notes Care Provider Matthew arizmendi 03-11-2024 influenza virus vaccine, unspecified formulation Karly Alvarado APRN.POWER [employer]ESS T[employer]ER Work Phone: [facility] 06-24-2020 Covid (Moderna) [facility] 05-27-2020 Covid ([facility]) [facility] 02-08-2019 Influenza virus vaccine W [facility] Payers Date Payer Category Payer Self-pay [id number] 2022 Medicare [id number] 2021 Unknown [employer] [place] [id number] 2021-Present [phone] [address] [place] [address] [id number] 2019 Private Health Insurance MMO MEDICARE SUPPLEMENT [id number] 2019 Unknown MMO MMO MEDICARE SUPPLEMENT [id number] 2019-Present [phone] [address] [place] [address] Indemnity [id number] 2019 Unknown [id number] 2016 Unknown [id number] 2015 Medicare MEDICARE MEDICAR E A AND B [id number] 2015-Present [phone] [address] [address] [place] [address] Medicare [id number] 2015 Medicare [id number] [id number]. [id number] 2006 Medicare [id number] 1950 Unknown [id number] 2.16.840.1.645232.3.579.2. 903 1950 Unknown [id number] 2.16840.1.813431.3.579.2. 627 1950 Unknown [id number] 2.16840.1.535173.3.579.2. 627 Unknown [id number] 2.16840.1.441454.3.579.2. 462 Unknown [id number] 2.16840.1.679355.3.579.2. 462 Unknown [id number] 2.16.840.1.833821.3.579.2. 462 Unknown [id number] 2.16.840.1.297822.3.579.2. 462 Unknown [id number] 2.16.840.1.512507.3.579.2. 462 Unknown [id number] 2.16840.1.483071.3.579.2. 462 Unknown [id number] 2.16.840.1.121976.3.579.2. 462 Unknown [id number] 2.16.840.1.198378.3.579.2. 462 Unknown [id number] 2.16.840.1.153749.3.579.2. 462 Unknown [id number] 2.16.840.1.047066.3.579.2. 462 Unknown [id number] 2.16.840.1.574006.3.579.2. 462 Unknown [id number] 2.16.840.1.627614.3.579.2. 462 Unknown [id number] 2.16.840.1.459854.3.579.2. 462 Unknown [id number] 2.16.840.1.450684.3.579.2. 462 Unknown [id number] 2.840.1.276581.3.579.2. 462 Unknown [id number] 2.16.840.1.330999.3.579.2. 462 Unknown [id number] 2.16840.1.643524.3.579.2. 462 Unknown [id number] 2.16.840.1.274576.3.579.2. 462 Unknown [id number] 2.16.840.1.843163.3.579.2. 462 Unknown [id number] 2.16.840.1.724909.3.579.2. 462 Unknown [id number] 2.16.840.1.152340.3.579.2. 462 Unknown [id number] 2.16.840.1.350386.3.579.2. 462 Unknown [id number] 2.16.840.1.939632.3.579.2. 462 Unknown [id number] 2.16.840.1.601064.3.579.2. 462 Unknown [id number] 2.16.840.1.999533.3.579.2. 462 Social History Date Type Detail Facility Start: 06-19-2019 End: 01-02-2023 Assertion Unknown if ever smoked [facility] Work Phone: Start: 05-09-2014 End: 11-14-2024 Tobacco smoking status NHIS Never smoked tobacco [facility] Start: 05-09-2014 End: 08-12-2024 Tobacco use and exposure User of smokeless tobacco [facility] History of tobacco use Snuff User [facility] [place] History of tobacco use Chews Tobacco [facility] Start: 08-03-2021 Alcohol intake Current non-drinker of alcohol (finding) [facility] Start: 1950 Sex Assigned At Not on file [facility] Start: 07-24-2021 End: 03-16-2022 Exposure to SARS-CoV-2 (event) Not sure [facility] Start: 09-09-2021 End: 09-10-2024 Alcohol intake Current drinker of alcohol (finding) [facility] Start: 09-09-2021 History SDOH Alcohol Comment Occasionally [facility] Start: 06-08-2019 Spouse/ Significant Other [facility] Start: 06-19-2019 Chew [facility] Start: 1950 Sex Assigned At Male [facility] Start: 03-16-2022 Tobacco use and exposure Smokeless tobacco non-user [facility] Start: 03-16-2022 Alcohol intake Ex-drinker (finding) [facility] Start: 06-26-2024 Tobacco smoking status NHIS Smokes tobacco daily (finding) [facility] Start: 07-11-2024 Sex Male (finding) [facility] Start: 08-12-2024 End: 09-06-2024 History of Social function [facility] Start: 08-12-2024 End: 09-06-2024 Tobacco use panel [facility] National Score (1-10 0), lower number is lower risk 53 [facility] Start: 07-27-2021 Sexual orientation Heterosexual (finding) [facility] Medical Equipment Procedure Code Equipment Code Equipment Origin al Text Equipment Identifier Dates Discectomy, spine, cervical, anterior approach, with fusion 2 level plate FDA Start: 07-10-2024 Discectomy, spine, cervical, anterior approach, with fusion SEALANT,FLOSEAL HEMOSTATIC 5ML FDA Start: 07-10-2024 Discectomy, spine, cervical, anterior approach, with fusion 4.0 fixed angle villaf[place] screw FDA Start: 07-10-2024 Discectomy, spine, cervical, anterior approach, with fusion 4.0 fixed angle screw villafana FDA Start: 07-10-2024 Discectomy, spine, cervical, anterior approach, with fusion 4.0 fixed angle screw villafana FDA Start: 07-10-2024 Discectomy, spine, cervical, anterior approach, with fusion 4.0 fixed angle screw villafana FDA Start: 07-10-2024 Discectomy, spine, cervical, anterior approach, with fusion 4.0 fixed angle screw villafana FDA Start: 07-10-2024 Discectomy, spine, cervical, anterior approach, with fusion ANATOMICAL CERVICAL ALLOGRAFT SPACER ([id number]) FDA Start: 07-10-2024 Discectomy, spine, cervical, anterior approach, with fusion ANATOMICAL CERVICAL ALLOGRAFT SPACER 7 X 16 X 14MM ([id number]) FDA Start: 07-10-2024 Discectomy, spine, cervical, anterior approach, with fusion PUTTY,BONE 1CC DBX FDA Start: 07-10-2024 Discectomy, spine, cervical, anterior approach, with fusion 2 level plate FDA Start: 07-10-2024 Discectomy, spine, cervical, anterior approach, with fusion SEALANT,FLOSEAL HEMOSTATIC 5ML FDA Start: 07-10-2024 Discectomy, spine, cervical, anterior approach, with fusion 4.0 fixed angle villafana screw FDA Start: 07-10-2024 Discectomy, spine, cervical, anterior approach, with fusion 4.0 fixed angle screw villafana FDA Start: 07-10-2024 Discectomy, spine, cervical, anterior approach, with fusion 4.0 fixed angle screw villafana FDA Start: 07-10-2024 Discectomy, spine, cervical, anterior approach, with fusion 4.0 fixed angle screw villafana FDA Start: 07-10-2024 Discectomy, spine, cervical, anterior approach, with fusion 4.0 fixed angle screw villafana FDA Start: 07-10-2024 Discectomy, spine, cervical, anterior approach, with fusion ANATOMICAL CERVICAL ALLOGRAFT SPACER (C1762) FDA Start: 07-10-2024 Discectomy, spine, cervical, anterior approach, with fusion ANATOMICAL CERVICAL ALLOGRAFT SPACER 7 X 16 X 14MM ([id number]) FDA Start: 07-10-2024 Discectomy, spine, cervical, anterior approach, with fusion PUTTY,BONE 1CC DBX FDA Start: 07-10-2024 Discectomy, spine, cervical, anterior approach, with fusion 2 level plate FDA Start: 07-10-2024 Discectomy, spine, cervical, anterior approach, with fusion SEALANT,FLOSEAL HEMOSTATIC 5ML FDA Start: 07-10-2024 Discectomy, spine, cervical, anterior approach, with fusion 4.0 fixed angle villafana screw FDA Start: 07-10-2024 Discectomy, spine, cervical, anterior approach, with fusion 4.0 fixed angle screw villafana FDA Start: 07-10-2024 Discectomy, spine, cervical, anterior approach, with fusion 4.0 fixed angle screw villafana FDA Start: 07-10-2024 Discectomy, spine, cervical, anterior approach, with fusion 4.0 fixed angle screw villafana FDA Start: 07-10-2024 Discectomy, spine, cervical, anterior approach, with fusion 4.0 fixed angle screw villafana FDA Start: 07-10-2024 Discectomy, spine, cervical, anterior approach, with fusion ANATOMICAL CERVICAL ALLOGRAFT SPACER (C1762) FDA Start: 07-10-2024 Discectomy, spine, cervical, anterior approach, with fusion ANATOMICAL CERVICAL ALLOGRAFT SPACER 7 X 16 X 14MM ([id number]) FDA Start: 07-10-2024 Discectomy, spine, cervical, anterior approach, with fusion PUTTY,BONE 1CC DBX FDA Start: 07-10-2024 Discectomy, spine, cervical, anterior approach, with fusion 2 level plate FDA Start: 07-10-2024 Discectomy, spine, cervical, anterior approach, with fusion SEALANT,FLOSEAL HEMOSTATIC 5ML FDA Start: 07-10-2024 Discectomy, spine, cervical, anterior approach, with fusion 4.0 fixed angle villafana screw FDA Start: 07-10-2024 Discectomy, spine, cervical, anterior approach, with fusion 4.0 fixed angle screw villafana FDA Start: 07-10-2024 Discectomy, spine, cervical, anterior approach, with fusion 4.0 fixed angle screw villafana FDA Start: 07-10-2024 Discectomy, spine, cervical, anterior approach, with fusion 4.0 fixed angle screw villafana FDA Start: 07-10-2024 Discectomy, spine, cervical, anterior approach, with fusion 4.0 fixed angle screw villafana FDA Start: 07-10-2024 Discectomy, spine, cervical, anterior approach, with fusion ANATOMICAL CERVICAL ALLOGRAFT SPACER (C1762) FDA Start: 07-10-2024 Discectomy, spine, cervical, anterior approach, with fusion ANATOMICAL CERVICAL ALLOGRAFT SPACER 7 X 16 X 14MM ([id number]) FDA Start: 07-10-2024 Discectomy, spine, cervical, anterior approach, with fusion PUTTY,BONE 1CC DBX FDA Start: 07-10-2024 Discectomy, spine, cervical, anterior approach, with fusion 2 level plate FDA Start: 07-10-2024 Discectomy, spine, cervical, anterior approach, with fusion SEALANT,FLOSEAL HEMOSTATIC 5ML FDA Start: 07-10-2024 Discectomy, spine, cervical, anterior approach, with fusion 4.0 fixed angle villafana screw FDA Start: 07-10-2024 Discectomy, spine, cervical, anterior approach, with fusion 4.0 fixed angle screw villafana FDA Start: 07-10-2024 Discectomy, spine, cervical, anterior approach, with fusion 4.0 fixed angle screw villafana FDA Start: 07-10-2024 Discectomy, spine, cervical, anterior approach, with fusion 4.0 fixed angle screw villafana FDA Start: 07-10-2024 Discectomy, spine, cervical, anterior approach, with fusion 4.0 fixed angle screw villafana FDA Start: 07-10-2024 Discectomy, spine, cervical, anterior approach, with fusion ANATOMICAL CERVICAL ALLOGRAFT SPACER (C1762) FDA Start: 07-10-2024 Discectomy, spine, cervical, anterior approach, with fusion ANATOMICAL CERVICAL ALLOGRAFT SPACER 7 X 16 X 14MM ([id number]) FDA Start: 07-10-2024 Discectomy, spine, cervical, anterior approach, with fusion PUTTY,BONE 1CC DBX FDA Start: 07-10-2024 Discectomy, spine, cervical, anterior approach, with fusion 2 level plate FDA Start: 07-10-2024 Discectomy, spine, cervical, anterior approach, with fusion SEALANT,FLOSEAL HEMOSTATIC 5ML FDA Start: 07-10-2024 Discectomy, spine, cervical, anterior approach, with fusion 4.0 fixed angle villafana screw FDA Start: 07-10-2024 Discectomy, spine, cervical, anterior approach, with fusion 4.0 fixed angle screw villafana FDA Start: 07-10-2024 Discectomy, spine, cervical, anterior approach, with fusion 4.0 fixed angle screw villafana FDA Start: 07-10-2024 Discectomy, spine, cervical, anterior approach, with fusion 4.0 fixed angle screw villafana FDA Start: 07-10-2024 Discectomy, spine, cervical, anterior approach, with fusion 4.0 fixed angle screw villafana FDA Start: 07-10-2024 Discectomy, spine, cervical, anterior approach, with fusion ANATOMICAL CERVICAL ALLOGRAFT SPACER (C1762) FDA Start: 07-10-2024 Discectomy, spine, cervical, anterior approach, with fusion ANATOMICAL CERVICAL ALLOGRAFT SPACER 7 X 16 X 14MM (C1762) FDA Start: 07-10-2024 Discectomy, spine, cervical, anterior approach, with fusion PUTTY,BONE 1CC DBX FDA Start: 07-10-2024 Discectomy, spine, cervical, anterior approach, with fusion 2 level plate FDA Start: 07-10-2024 Discectomy, spine, cervical, anterior approach, with fusion SEALANT,FLOSEAL HEMOSTATIC 5ML FDA Start: 07-10-2024 Discectomy, spine, cervical, anterior approach, with fusion 4.0 fixed angle villafana screw FDA Start: 07-10-2024 Discectomy, spine, cervical, anterior approach, with fusion 4.0 fixed angle screw villafana FDA Start: 07-10-2024 Discectomy, spine, cervical, anterior approach, with fusion 4.0 fixed angle screw villafana FDA Start: 07-10-2024 Discectomy, spine, cervical, anterior approach, with fusion 4.0 fixed angle screw villafana FDA Start: 07-10-2024 Discectomy, spine, cervical, anterior approach, with fusion 4.0 fixed angle screw villafana FDA Start: 07-10-2024 Discectomy, spine, cervical, anterior approach, with fusion ANATOMICAL CERVICAL ALLOGRAFT SPACER (C1762) FDA Start: 07-10-2024 Discectomy, spine, cervical, anterior approach, with fusion ANATOMICAL CERVICAL ALLOGRAFT SPACER 7 X 16 X 14MM (C1762) FDA Start: 07-10-2024 Discectomy, spine, cervical, anterior approach, with fusion PUTTY,BONE 1CC DBX FDA Start: 07-10-2024 STENT,URETERAL 6 FR PIG 6X26 FDA Start: 06-21-2019 STENT,URETERAL 6 FR PIG 6X26 FDA Start: 06-21-2019 STENT,URETERAL 6 FR PIG 6X26 FDA Start: 06-21-2019 STENT,URETERAL 6 FR PIG 6X26 FDA Start: 06-21-2019 STENT,URETERAL 6 FR PIG 6X26 FDA Start: 06-21-2019 STENT,URETERAL 6 FR PIG 6X26 FDA Start: 06-21-2019 STENT,URETERAL 6 FR PIG 6X26 FDA Start: 06-21-2019 STENT,URETERAL 6 FR PIG 6X26 FDA Start: 06-21-2019 STENT,URETERAL 6 FR PIG 6X26 FDA Start: 06-21-2019 STENT,URETERAL 6 FR PIG 6X26 FDA Start: 06-21-2019 STENT,URETERAL PIGTAIL 6FRx26 FDA Start: 12-09-2022 STENT,URETERAL 6 FR PIG 6X26 FDA Start: 06-21-2019 STENT,URETERAL PIGTAIL 6FRx26 FDA Start: 12-09-2022 STENT,URETERAL 6 FR PIG 6X26 FDA Start: 06-21-2019 STENT,URETERAL PIGTAIL 6FRx26 FDA Start: 12-09-2022 STENT,URETERAL 6 FR PIG 6X26 FDA Start: 06-21-2019 STENT,URETERAL PIGTAIL 6FRx26 FDA Start: 12-09-2022 STENT,URETERAL 6 FR PIG 6X26 FDA Start: 06-21-2019 STENT,URETERAL PIGTAIL 6FRx26 FDA Start: 12-09-2022 STENT,URETERAL 6 FR PIG 6X26 FDA Start: 06-21-2019 STENT,URETERAL PIGTAIL 6FRx26 FDA Start: 12-09-2022 STENT,URETERAL 6 FR PIG 6X26 FDA Start: 06-21-2019 STENT,URETERAL PIGTAIL 6FRx26 FDA Start: 12-09-2022 STENT,URETERAL 6 FR PIG 6X26 FDA Start: 06-21-2019 STENT,URETERAL PIGTAIL 6FRx26 FDA Start: 12-09-2022 STENT,URETERAL 6 FR PIG 6X26 FDA Start: 06-21-2019 STENT,URETERAL PIGTAIL 6FRx26 FDA Start: 12-09-2022 STENT,URETERAL 6 FR PIG 6X26 FDA Start: 06-21-2019 STENT,URETERAL PIGTAIL 6FRx26 FDA Start: 12-09-2022 Goals Date Patient Goal Desired Activity /State Functional Status Date Assessment Result Facility 11-20-2024 Functional status Bathroom [facility] Work Phone: 07-11-2024 Functional status Chair [facility] Work Phone: 12-09-2022 Functional status Ambulates;Bath room [employer] [facility] Work Phone: 06-02-2014 Are you deaf, or do you have serious difficulty hearing No 06/02/2014 2:08 PM Monique Craig LPN No [facility] Work Phone: 06-02-2014 Are you blind, or do you have serious difficulty seeing, even when wearing glasses No 06/02/2014 2:08 PM Monique Craig LPN No [facility] 06-02-2014 Do you have serious difficulty walking or climbing stairs No 06/02/2014 2:08 PM Monique Craig LPN No [facility] 06-02-2014 Do you have difficul ty dressing or bathing No 06/02/2014 2:08 PM Monique Craig LPN No [facility] 06-02-2014 Because of a physica l, mental, or emotional condition, do you have difficulty doing errands alone such as visiting a physician's office or shopping No 06/02/2014 2:08 PM Monique Craig LPN No [facility] Mental Status Date Assessment Result Facility 11-20-2024 Cognitive function Level Of Cons ciousness Sedated [facility] Work Phone: 11-20-2024 Cognitive function Voice/Name [facility] Work Phone: 07-11-2024 Cognitive function Voice/Name [facility] Work Phone: 07-11-2024 Cognitive function Appropriate;Cooperativ e [facility] Work Phone: 01-02-2023 Cognitive function Level Of Cons ciousness Awake;Alert;Appropriate;Fol lows Commands [facility] Work Phone: 12-12-2022 Cognitive function Level Of Cons ciousness Awake;Alert;Appropriate [facility] Work Phone: 12-09-2022 Cognitive function Light Pain [facility] Work Phone: 06-02-2014 Because of a physica l, mental, or emotional condition, do you have serious difficulty concentrating, remembering, or making decisions No 06/02/2014 2:08 PM Monique Craig LPN No [facility] Clinical Notes 08-03-2021 to 11-20-2024 Note Date & Type Note Facility 11-20-2024 Consult note [facility] 11-20-2024 Discharge summary [facility] 11-20-2024 Consult note [facility] 11-20-2024 Procedure note [facility] 11-20-2024 Consult note Note Date/Time November 20, 2024 1:39pm [facility] Medical Records Department [address] [place] [address] Pre-Anesthesia Evaluation 11/20/24 1335 MR#: [id number] Acct: [id number] Name: TERESA RAINEY Rep #:[id number] 1 : 1950 74 From: Yang Reese PCP: Dr. Nathanael Maradiaga, DO Status:REG SDC Y Race: C Location: [place] [address] ASA Classification* ASA Classification ASA Classification: 2 Assessment & Plan Anesthesia* Anesthesia Assessment Anesthesia Assessment: Discussed sedation and/or anesthesia options, risks, benefits, and alternatives with patient/parents/legal guardian/POA. Questions invited. The patient/parents/legal guardian/POA seems to understand and agrees to proceedwith anesthesia plan. Reviewed the physical assessment, medical history, allergy history and patient home medications list prior to surgery/procedure/anesthetic and documented any changes. Performed airway and anesthesia risk assessments. Anesthesia Type Anesthesia Type: General History Source History Obtained from:: Patient and Chart Anesthesia Focused Assessment* Temperature: 98.1 F Pulse Rate: 66 Blood Pressure: 140/87 Respiratory Rate: 16 Pulse Ox: 100 Oxygen Delivery Method: Room Air Airway Assessment Mouth opens: >3 cm Mallampati Score: II Teeth Condition: Intact Neck Range of motion (ROM): Limited ROM Comment: Recent neck fusion in July 2024. The patient states he was told thereis no limitation of neck movements at this time Labs Anesthesia Preop lab: CBC WBC 14.4 K/mm3 (4.4-11.0) H 07/11/24 06:18 5 RBC 3.88 M/mm3 (4.6-6.2) L 07/11/24 06:18 07/11/24 Hgb 12.3 g/dL (13.0-16.5) L 07/11/24 06:18 5 Hct 35.7 % (40-54) L 07/11/24 06:18 07/11/24 Plt Count 240 K/mm3 (150-450) 07/11/24 06:18 07/11/24 CHEMISTRY Potassium 4.6 mmol/L (3.3-5.1) 07/11/24 06:18 07/11/24 Sodium 138 mmol/L (133-145) 07/11/24 06:18 07/11/24 Magnesium 2.8 mg/dL (1.5-2.2) H 06/27/24 13:05 06/27/24 BUN 19 mg/dL (4-19) 07/11/24 06:18 07/11/24 Creatinine 1.14 mg/dL (0.70-1.20) 07/11/24 06:18 07/11/24 Glucose 199 mg/dL (70-99) H 07/11/24 06:18 07/11/24 POC Glucose 213 mg/dL (74-106) H 07/11/24 06:33 07/11/24 TSH 4.37 uIU/mL (0.358-3.74) H 09/01/23 10:44 08/09 08/01 COAG Pre-Assessment Diagnosis/Proposed Procedure Planned Operative Procedure(s): (R) ESWL,Cystocopy Insertion Stent Anesthesia History 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 When Was Last Pacemaker Check QUESTION #4 FULL TEXT: You/Your Family Experience fever (hyperthermia) with Anesthesia Last Oral Intake Last Oral intake: Last Oral Intake NPO since 07:30 11/20/24 13:01 Meds taken in AM with sips of Yes 11/20/24 13:01 water? 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 Female No 11/14/24 11:02 HX of Motion Sickness No 11/14/24 11:02 HX of N/V After Surgery No 11/14/24 11:02 Non-Smoker Yes 11/14/24 11:02 Duration of Surgery greater Yes 11/14/24 11:02 than 60 minutes Number of Risk Factors 2 11/14/24 11:02 PONV Score Moderate Risk 11/14/24 11:02 Height & Weight Height & Weight: Anesthesia: Height & Weight Height 5 ft 7 in 11/20/24 13:01 Weight: 92 kg 11/20/24 13:01 Body Mass Index (BMI) 31.7 11/20/24 13:01 Respiratory Assessment Respiratory Assessment - pathology supervisor: Respiratory Tract Infection Hx - pathology supervisor Hx Respiratory Tract Infection No 11/14/24 11:02 STOP Sleep Apnea STOP Sleep Apnea - pathology supervisor: STOP Sleep Apnea - pathology supervisor Hx Hypertension Yes 11/14/24 11:02 Hx Sleep Apnea No 11/14/24 11:02 CPAP No 07/10/24 10:51 BIPAP Do you snore loudly (louder No 11/14/24 11:02 than talking or can be heard Do you often feel tired/ No 11/14/24 11:02 fatigued/ sleepy during daytime? Has anyone observed you stop No 11/14/24 11:02 breathing during sleep? STOP Results Negative 11/14/24 11:02 QUESTION #5 FULL TEXT : Do you snore loudly (louder than talking or can be heard through closed doors)? 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 Specify any problems Hx of Preganancy in last 3 N/A 11/14/24 11:02 Months Nurse Filling Out Transfusion JZOLLINGE 11/14/24 11:02 & Questions: Date: 11/14/24 11/14/24 11:02 Time: 11:04 11/14/24 11:02 Patient unable to answer at this time (ie. confused, unrespo /Reproduction History /Reproductive History - pathology supervisor: /Reproductive Hx- pathology supervisor Hx Now No 11/14/24 11:02 Gestational Age (in weeks): EDC: Hx Hx Para Hx Section SAB No 11/14/24 11:02 Active Medications Active Medications: Current Medications Generic Name Dose Route Start Last Admin Trade Name Freq PRN Reason Stop Dose Admin Cefazolin Sodium 2 gm/ Sodium 110 mls @ 200 mls/hr 11/20/24 14:30 Chloride IV 11/20/24 15:02 INTRAOP ONE Lactated Ringer's 1,000 mls @ 15 mls/hr 11/20/24 13:00 11/20/24 13:06 IV 15 mls/hr .Q48H PAOLO Administration PFSH Medical History Non-smoker History of steroid therapy Cluster headache Syncope History of stress test Cardiology follow-up encounter Wears hearing aid Wears glasses Cancer Rash Arthritis Back pain Dietary restriction Patient uses snuff History of pain when walking History of edema BPH (benign prostatic hyperplasia) Benign essential tremor Essential hypertension Hyperlipidemia Type 2 diabetes mellitus without complication Constipation Home Medications ?Medication ?Instructions ?Recorded ?Last Taken ?Type simvastatin 10 mg tablet 10 mg PO QHS 07/29/16 History omega-3 fatty acids 1,000 mg 1,000 mg PO DAILY 9 07/07/24 History capsule (Fish Oil Concentrate) propranolol 120 mg capsule,24 120 mg PO DAILY 11/01/18 11/20/24 History hr,extended release multivitamin 1 ea PO DAILY 05/20/1907/09 History naphazoline 0.78119 %-pheniramine 2 drp OP PRN PRN All ergies 05/20/19 12/08/22 History 0.315 % eye drops diphenhydramine HCl 25 mg capsule 25 mg PO BID PRN All ergies 05/21/19 Unknown History docusate sodium 100 mg capsule 100 mg PO QHS PRN Const ipation 05/21/19 12/08/22 History glipizide 5 mg tablet 7.5 mg PO .PM 12/02/2207/09 History finasteride 5 mg tablet 5 mg PO QDAY 04/09/24 History hydralazine 10 mg tablet 10 mg PO BID 04/09/24 History coenzyme Q10 100 mg capsule (Co 200 mg PO DAILY 07/09/24 History Q-10) glipizide 5 mg tablet 5 mg PO DAILY 06/26/2407/09 History losartan 100 mg tablet 100 mg PO DAILY 06/26/24 History metformin 1,000 mg tablet 1,000 mg PO BID 06/26/2405/04 History vitamin B12 1,000 mcg-folic acid 1 tab sublingual ANAND Y 06/26/24 07/09/24 History 400 mcg sublingual tablet sennosides 8.6 mg capsule (senna) 8.6 mg PO BID PRN co nstipation #30 07/11/24 U nknown Rx caps cyclobenzaprine 10 mg tablet 10 mg PO TID PRN spasms 0 11/14/24 Unknown History Allergy/AdvReac Type Severity Reaction Status Date / Time amoxicillin Allergy Hives Verified 11/20/24 13:00 Penicillins Allergy Hives Verified 11/20/24 13:00 tramadol AdvReac Severe Other Verified 11/20/24 13:00 Family History Father Colon cancer CVA (cerebral vascular accident) Mother Cancer Son Hypertension Surgical History Hx of right cataract extraction Hx of left cataract extraction Hx of colonoscopy History of excision of lesion Hx of transurethral resection of prostate History of cystoscopy History of lithotripsy History of incision and drainage History of fusion of cervical spine History of tonsillectomy Social History Smoking Status: Never smoker alcohol intake: current substance use type: does not use caffeine: Yes Type: carbonated beverages Number of servings: 2 Review of Systems (Anesthesia) ROS Narrative System reviewed and no additional complaints, except as documented. 11/20/24 1339 <Electronically signed by Yang Baldwin MD> Date _ Yang Baldwin MD Cosigner Signature: Date CC: ~ Signed [facility] Work Phone: [phone] 969-636908-13-2025 Radiology Diagnostic study note [facility] Imaging Services [address] [place] [address] [id number] Abdomen Single View MR#: [id number] Acct: [id number] Name: TERESA RAINEY Rep #: [id number] : 1950 M 74 From: Tyron Sprague MD PCP: Dr. Nathanael Maradiaga, DO Status: [facility] Study:Abdomen Single View Date of Exam: 11/20/24 Exam# [id number] Ordering Dr: Alyssa Trinh MD PROCEDURE: ABDOMEN SINGLE VIEW 11/20/2024 REASON FOR EXAM: KIDNEY STONE TECHNIQUE: ABDOMEN SINGLE VIEW COMPARISON: Prior CT scan dated November 11, 2024. FINDINGS: Bowel gas: Large amount of fecal material is seen throughout the colon. Calcifications: No definite calcified calculus is seen. Bones: The bones are unremarkable. Other: RAD/Abdomen Single View IMPRESSION: No definite renal or ureteral calcification seen. Reading Location: [id number] CC: Dr. Duke Trinh MD; Dr. Nathanael Maradiaga, DO ~ [employer] Specialist: Signed [facility]08-13-2025 Consult note [facility] Medical Records Department [address] [place] [address] Pre-Anesthesia Evaluation 11/20/24 1335 MR#: [id number] Acct: [id number] Name: TERESA RAINEY Rep #:[id number] : 1950 74 From: Yang Reese PCP: Dr. Nathanael Maradiaga DO Status:REG SDC Y Race: C Location: [place] [address] ASA Classification* ASA Classification ASA Classification: 2 Assessment & Plan Anesthesia* Anesthesia Assessment Anesthesia Assessment: Discussed sedation and/or anesthesia options, risks, benefits, and alternatives with patient/parents/legal guardian/POA. Questions invited. The patient/parents/legal guardian/POA seems to understand and agrees to proceedwith anesthesia plan. Reviewed the physical assessment, medical history, allergy history and patient home medications list prior to surgery/procedure/anesthetic and documented any changes. Performed airway and anesthesia risk assessments. Anesthesia Type Anesthesia Type: General History Source History Obtained from:: Patient and Chart Anesthesia Focused Assessment* Temperature: 98.1 F Pulse Rate: 66 Blood Pressure: 140/87 Respiratory Rate: 16 Pulse Ox: 100 Oxygen Delivery Method: Room Air Airway Assessment Mouth opens: >3 cm Mallampati Score: II Teeth Condition: Intact Neck Range of motion (ROM): Limited ROM Comment: Recent neck fusion in July 2024. The patient states he was told thereis no limitation of neck movements at this time Labs Anesthesia Preop lab: CBC WBC 14.4 K/mm3 (4.4-11.0) H 07/11/24 06:18 5 RBC 3.88 M/mm3 (4.6-6.2) L 07/11/24 06:18 07/11/24 Hgb 12.3 g/dL (13.0-16.5) L 07/11/24 06:18 5 Hct 35.7 % (40-54) L 07/11/24 06:18 07/11/24 Plt Count 240 K/mm3 (150-450) 07/11/24 06:18 07/11/24 CHEMISTRY Potassium 4.6 mmol/L (3.3-5.1) 07/11/24 06:18 07/11/24 Sodium 138 mmol/L (133-145) 07/11/24 06:18 07/11/24 Magnesium 2.8 mg/dL (1.5-2.2) H 06/27/24 13:05 06/27/24 BUN 19 mg/dL (4-19) 07/11/24 06:18 07/11/24 Creatinine 1.14 mg/dL (0.70-1.20) 07/11/24 06:18 07/11/24 Glucose 199 mg/dL (70-99) H 07/11/24 06:18 07/11/24 POC Glucose 213 mg/dL (74-106) H 07/11/24 06:33 07/11/24 TSH 4.37 uIU/mL (0.358-3.74) H 09/01/23 10:44 08/09 08/01 COAG Pre-Assessment Diagnosis/Proposed Procedure Planned Operative Procedure(s): (R) ESWL,Cystocopy Insertion Stent Anesthesia History 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 When Was Last Pacemaker Check QUESTION #4 FULL TEXT: You/Your Family Experience fever (hyperthermia) with Anesthesia Last Oral Intake Last Oral intake: Last Oral Intake NPO since 07:30 11/20/24 13:01 Meds taken in AM with sips of Yes 11/20/24 13:01 water? 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 Female No 11/14/24 11:02 HX of Motion Sickness No 11/14/24 11:02 HX of N/V After Surgery No 11/14/24 11:02 Non-Smoker Yes 11/14/24 11:02 Duration of Surgery greater Yes 11/14/24 11:02 than 60 minutes Number of Risk Factors 2 11/14/24 11:02 PONV Score Moderate Risk 11/14/24 11:02 Height & Weight Height & Weight: Anesthesia: Height & Weight Height 5 ft 7 in 11/20/24 13:01 Weight: 92 kg 11/20/24 13:01 Body Mass Index (BMI) 31.7 11/20/24 13:01 Respiratory Assessment Respiratory Assessment - pathology supervisor: Respiratory Tract Infection Hx - pathology supervisor Hx Respiratory Tract Infection No 11/14/24 11:02 STOP Sleep Apnea STOP Sleep Apnea - pathology supervisor: STOP Sleep Apnea - pathology supervisor Hx Hypertension Yes 11/14/24 11:02 Hx Sleep Apnea No 11/14/24 11:02 CPAP No 07/10/24 10:51 BIPAP Do you snore loudly (louder No 11/14/24 11:02 than talking or can be heard Do you often feel tired/ No 11/14/24 11:02 fatigued/ sleepy during daytime? Has anyone observed you stop No 11/14/24 11:02 breathing during sleep? STOP Results Negative 11/14/24 11:02 QUESTION #5 FULL TEXT : Do you snore loudly (louder than talking or can be heard through closeddoors)? 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 Specify any problems Hx of Preganancy in last 3 N/A 11/14/24 11:02 Months Nurse Filling Out Transfusion AlyssaNADIRA 11/14/24 11:02 & Questions: Date: 11/14/24 11/14/24 11:02 Time: 11:04 11/14/24 11:02 Patient unable to answer at this time (ie. confused, unrespo /Reproduction History /Reproductive History - pathology supervisor: /Reproductive Hx- pathology supervisor Hx Now No 11/14/24 11:02 Gestational Age (in weeks): EDC: Hx Hx Para Hx Section SAB No 11/14/24 11:02 Active Medications Active Medications: Current Medications Generic Name Dose Route Start Last Admin Trade Name Freq PRN Reason Stop Dose Admin Cefazolin Sodium 2 gm/ Sodium 110 mls @ 200 mls/hr 11/20/24 14:30 Chloride IV 11/20/24 15:02 INTRAOP ONE Lactated Ringer's 1,000 mls @ 15 mls/hr 11/20/24 13:00 11/20/24 13:06 IV 15 mls/hr .Q48H PAOLO Administration PFSH Medical History Non-smoker History of steroid therapy Cluster headache Syncope History of stress test Cardiology follow-up encounter Wears hearing aid Wears glasses Cancer Rash Arthritis Back pain Dietary restriction Patient uses snuff History of pain when walking History of edema BPH (benign prostatic hyperplasia) Benign essential tremor Essential hypertension Hyperlipidemia Type 2 diabetes mellitus without complication Constipation Home Medications ?Medication ?Instructions ?Recorded ?Last Taken ?Type simvastatin 10 mg tablet 10 mg PO QHS 07/29/16 History omega-3 fatty acids 1,000 mg 1,000 mg PO DAILY 9 07/07/24 History capsule (Fish Oil Concentrate) propranolol 120 mg capsule,24 120 mg PO DAILY 11/01/18 11/20/24 History hr,extended release multivitamin 1 ea PO DAILY 05/20/1907/09 History naphazoline 0.53507 %-pheniramine 2 drp OP PRN PRN All ergies 05/20/19 12/08/22 History 0.315 % eye drops diphenhydramine HCl 25 mg capsule 25 mg PO BID PRN All ergies 05/21/19 Unknown History docusate sodium 100 mg capsule 100 mg PO QHS PRN Const ipation 05/21/19 12/08/22 History glipizide 5 mg tablet 7.5 mg PO .PM 12/02/2207/09 History finasteride 5 mg tablet 5 mg PO QDAY 04/09/24 History hydralazine 10 mg tablet 10 mg PO BID 04/09/24 History coenzyme Q10 100 mg capsule (Co 200 mg PO DAILY 07/09/24 History Q-10) glipizide 5 mg tablet 5 mg PO DAILY 06/26/2407/09 History losartan 100 mg tablet 100 mg PO DAILY 06/26/24 History metformin 1,000 mg tablet 1,000 mg PO BID 06/26/2405/04 History vitamin B12 1,000 mcg-folic acid 1 tab sublingual ANAND Y 06/26/24 07/09/24 History 400 mcg sublingual tablet sennosides 8.6 mg capsule (senna) 8.6 mg PO BID PRN co nstipation #30 07/11/24 U nknown Rx caps cyclobenzaprine 10 mg tablet 10 mg PO TID PRN spasms 0 11/14/24 Unknown History Allergy/AdvReac Type Severity Reaction Status Date / Time amoxicillin Allergy Hives Verified 11/20/24 13:00 Penicillins Allergy Hives Verified 11/20/24 13:00 tramadol AdvReac Severe Other Verified 11/20/24 13:00 Family History Father Colon cancer CVA (cerebral vascular accident) Mother Cancer Son Hypertension Surgical History Hx of right cataract extraction Hx of left cataract extraction Hx of colonoscopy History of excision of lesion Hx of transurethral resection of prostate History of cystoscopy History of lithotripsy History of incision and drainage History of fusion of cervical spine History of tonsillectomy Social History Smoking Status: Never smoker alcohol intake: current substance use type: does not use caffeine: Yes Type: carbonated beverages Number of servings: 2 Review of Systems (Anesthesia) ROS Narrative System reviewed and no additional complaints, except as documented. 11/20/24 1339 MD> Date _ Yang Baldwin MD Cosigner Signature: Date CC: ~ Signed [facility]08-04-2025 Radiology Diagnostic study note [facility] Imaging Services [address] [place] [address] [id number] Abdomen/Pelvis without Cont MR#: [id number] Acct: [id number] Name: TERESA RAINEY Rep #: [id number] : 1950 M 74 From: Tyron Sprague MD PCP: Dr. Nathanael Maradiaga, Status: REG CLI Study:Abdomen/Pelvis without Cont Date of Exa m: 11/11/24 Exam# [id number] Ordering Dr: Esthela Leo PROCEDURE: ABDOMEN/PELVIS WITHOUT CONT 11/11/2024 REASON FOR EXAM: CALCULUS OF KIDNEY Bilateral renal pain. History of prior lithotripsy. TECHNIQUE: ABDOMEN/PELVIS WITHOUT CONT Noncontrast technique limits evaluation of the abdominal and pelvic viscera. Coronal and Sagittal reconstruction series were provided. One or more dose reduction techniques were used (e.g., Automated exposure control, adjustment of the mA and/or kV according to patient size, use of iterative reconstruction technique). RADIATION DOSE SUMMARY: CTDlvol: 14.17 mGy DLP: 708.13 mGycm COMPARISON: Prior study dated January 16, 2024. FINDINGS: Lung bases: The lung bases are clear. Coronary artery calcification. Liver: Hepatomegaly. Gallbladder: Findings suggestive of sludge in the gallbladder lumen. Spleen: Normal size. Pancreas: Normal size. No surrounding inflammation. Adrenals: The adrenal glands are unremarkable. Kidneys: There is a 6.7 mm triangular calcification in the posterior midpole calyx of the left kidney. Punctate nonobstructive calculus seen in the upper pole of the left kidney. There is also evidence of a9 mm nonobstructive calculus in the lower pole calyx of the left kidney. Nonobstructive right intrarenal calculi. There is evidence of a 9.6 mm calculus in the renal pelvis of the right ureter causing a mild degree of right hydronephrosis. Nonspecific bilateral perinephric stranding. Bladder: Unremarkable The prostate is enlarged with the indentation of the bladder base. Radiation seeds are seen within the pancreas. Bowel: Colonic diverticulosis without diverticulitis. Appendix: The appendix is thickened measuring 10.3 mm. There is evidence of tiny appendicoliths within the appendiceal lumen. Acute non complicated appendicitis should be ruled out. Lymph nodes: Unremarkable. Vasculature: Mild diffuse atherosclerotic calcifications are noted. Peritoneum / Retroperitoneum: Unremarkable Bones: Degenerative changes of the spine. CT/Abdomen/Pelvis without Cont IMPRESSION: 9.6 mm calculus in the right renal pelvis with right hydronephrosis. Nonobstructive tiny bilateral intrarenal calculi. Nonspecific bilateral perinephric stranding. Thickened and dilatation of the appendix with the at least 2 appendicoliths within its lumen. Clinical correlation recommended. Reading Location: [id number] CC: Dr. Nathanael Maradiaga, DOMaegan [place] ~ [employer] Specialist: Signed [facility]06-06-2025 History of Present illness Narrative* Karly Alvarado APRN.POWER PRESS TENDER - 09/13/2024 3:00 PM EDT FOLLOW UP VISIT - ENDOSCOPY Teresa Rainey 1950 [id number] REFERRING PHYSICIAN: No referring provider defined for this encounter. Teresa Rainey is a patient I am following for screening colonoscopy- hx of polyps & family hx of colon cancer in father. Dr. Gerber performed lower endoscopy on 09/06/24. The patient was found to have Impression: - One small (4-6 mm) polyp in the ascending colon, removed with a cold snare. Resected and retrieved. - The examined portion of the ileum was normal. - Non-bleeding internal hemorrhoids. - The examination was otherwise normal. Pathology demonstrated: FINAL DIAGNOSIS A. Ascending colon polyp, biopsy: - Tubular adenoma. LINDSEY/lacho 09/09/2024 The patient notes no complaints since the procedure. VITALS: There were no vitals taken for this visit. General: patient is alert, cooperative, pleasant and in no acute distress On examination, the abdomen is benign. Assessment ASSESSMENT/PLAN: 1. Adenomatous polyp - ICD9: 229.9, ICD10: D36.9 The operative findings and pathology report were reviewed with the patient, and the patient has hadthe opportunity to ask questions and have questions answered. If the patient notes any problems or changes in bowel function, the patient should contact me immediately. Otherwise I recommend follow up endoscopy in 5 years. HM updated. Discussed treatment plan and patient voices understanding. Patient's questions answered appropriately. Medications and potential side effects were discussed and patient voices understanding. Return to the office as scheduled or as needed for worsening/no improvement. Karly Alvarado APRN.TODD documented [facility] NoteHNO ID: [id number] Author: KARLY ALVARADO APRN.TODD Service: ? Author Type: Nurse Practitioner Type: Progress Notes Filed: 09/13/2024 15:08 Note Text: FOLLOW UP VISIT - ENDOSCOPY Teresa Rainey 1950 [id number] REFERRING PHYSICIAN: No referring provider defined for this encounter. Teresa Dandre Redd is a patient I am following for screening colonoscopy- hx of polyps AND family hx of colon cancer in father. Dr. Gerber performed lower endoscopy on 09/06/24. The patient was found to have Impression: - One small (4-6 mm) polyp in the ascending colon, removed with a cold snare. Resected and retrieved. - The examined portion of the ileum was normal. - Non-bleeding internal hemorrhoids. - The examination was otherwise normal. Pathology demonstrated: FINAL DIAGNOSIS A. Ascending colon polyp, biopsy: - Tubular adenoma. JRG/lacho 09/09/2024 The patient notes no complaints since the procedure. VITALS: There were no vitals taken for this visit. General: patient is alert, cooperative, pleasant and in no acute distress On examination, the abdomen is benign. Assessment ASSESSMENT/PLAN: 1. Adenomatous polyp - ICD9: 229.9, ICD10: D36.9 The operative findings and pathology report were reviewed with the patient, and the patient has had the opportunity to ask questions and have questions answered. If the patient notes any problems or changes in bowel function, the patient should contact me immediately. Otherwise I recommend follow up endoscopy in 5 years. HM updated. Discussed treatment plan and patient voices understanding. Patient's questions answered appropriately. Medications and potential side effects were discussed and patient voices understanding. Return to the office as scheduled or as needed for worsening/no improvement. Karly Alvarado APRN.[facility]05-30-2025 Note* Discharge Instr - Nursing - Meme Brower RN - 09/06/2024 10:12 AM EDT The patient received a copy of Colonoscopy discharge instructions that contain information for how to contact the physician who performed the procedure and when to seek medical care. [facility]05-30-20[facility] Miscellaneous Notes* Discharge Instr - Nursing - Meme Brower RN - 09/06/2024 10:12 AM EDT The patient received a copy of Colonoscopy discharge instructions that contain information for how to contact the physician who performed the procedure and when to seek medical care. documented in this encounterBet[facility]05-30-2025 History and physical note * Minh Gerber MD - 09/06/2024 9:45 AM EDT HISTORY AND PHYSICAL Teresa Rainey : 1950 REFERRING PHYSICIAN: Minh Gerber III [address] [facility] [address] CHIEF COMPLAINT: Patient presents with: Consult HPI: Teresa is a 73 year old male referred for endoscopy. Teresa notes due for screening colonoscopy- hx of polyps (2021). Teresa denies abdominal pain. Teresa denies diarrhea. Teresa notes constipation. -takes colace daily Teresa denies a change in bowel habits. Teresa denies melena. Teresa denies bright red blood per rectum. Teresa denies hemorrhoids. Teresa notes family history of colon issues. Father with colon cancer Teresa denies heartburn. Teresa denies dysphagia. Teresa denies a history of ulcers/ peptic ulcer disease. Nidia notes a hx of T2DM, HTN, HLD. He denies CP, SOB, dizziness, palpitations, syncope, edema, recent hospitalizations Teresa has undergone prior endoscopy. Last colonoscopy was 09/[address] Gerber at [facility]. Sedation:Fentanyl 50 micrograms IV, Midazolam 4 mg IV, Diphenhydramine 50 mg IV Impression: - Five medium polyps in the descending colon and in the transverse colon, removed with a hot snare.Resected and retrieved. - Diverticulosis in the sigmoid colon. - Non-bleeding internal hemorrhoids. - The examination was otherwise normal. FINAL DIAGNOSIS A. Colon, transverse, polyp x2, polypectomy: - Fragments of tubular adenoma. B. Colon, descending, polyp x3, polypectomy: - Fragments of tubular adenoma. CURRENT MEDICATIONS Current Outpatient Medications Medication Sig glipiZIDE (GLUCOTROL) 5 mg tablet Take 5 mg by mouth two times a day before meals. hydrALAZINE (APRESOLINE) 10 mg tablet Take 10 mg by mouth three times a day. finasteride (PROSCAR) 5 mg tablet Take 5 mg by mouth once daily. cyclobenzaprine (FLEXERIL) 10 mg tablet Take 10 mg by mouth three times a day as needed. losartan (COZAAR) 50 mg tablet propranolol ER (INDERAL LA) 120 mg 24 hr capsule metFORMIN (GLUCOPHAGE) 1,000 mg tablet mecobalamin (B12 ACTIVE ORAL) Take by mouth. multivitamin (MULTI-DAY ORAL) Take by mouth. simvastatin (ZOCOR) 10 mg tablet Take 10 mg by mouth daily at bedtime. diphenhydrAMINE (BENADRYL ALLERGY) 25 mg tablet Take 25 mg by mouth every 6 hours as needed. Fish Oil-[place]-3 Fatty Acids (FISH OIL) 340-1,000 mg cap Take 1 capsule by mouth three times daily. peg 3350-Electrolytes (GOLYTELY) 236-22.74-6.74 -5.86 gram suspension Take 4,000 mL by mouth one time only for 1 dose. Refer to printed prep instructions from your provider. No current facility-administered medications for this visit. ALLERGIES: Amoxicillin and Penicillins PAST MEDICAL HISTORY PAST MEDICAL HISTORY Diagnosis Date Allergic rhinitis, cause unspecified Cervical disc disorder Diabetes (HCC) Family history of malignant neoplasm of gastrointestinal tract Kidney stones Mixed hyperlipidemia Other and unspecified hyperlipidemia Unspecified constipation Unspecified essential hypertension PAST SURGICAL HISTORY PAST SURGICAL HISTORY Procedure Laterality Date BACK SURGERY HX COLONOSCOPY 09/09/2021 repeat in 3 years-multiple polyps COLONOSCOPY FLX DX W/COLLJ SPEC WHEN PFRMD 11/27/2008 COLONOSCOPY FLX DX W/COLLJ SPEC WHEN PFRMD 05/26/2014 Repeat 2019 CYSTOSCOPY,URETEROSCOPY,LITHOTRIPSY 2009 LITHOTRIPSY XTRCORP SHOCK WAVE 2008 Lithotripsy X2 PAST SURGICAL HISTORY OF 1988 CERVICAL DISECTOMY SKIN BIOPSY HX TONSILLECTOMY PRIMARY/SECONDARY Tonsillectomy FAMILY HISTORY FAMILY HISTORY Problem Relation Age of Onset Cancer Mother Colon Cancer Father Colon Cancer Paternal Aunt Colon Cancer Paternal Uncle other (CROHN'S) Other SOCIAL HISTORY Social History Tobacco Use Smoking status: Never Smokeless tobacco: Current Types: Snuff Vaping Use Vaping status: Never Used Substance Use Topics Alcohol use: Yes Comment: Occasionally Drug use: No PHYSICAL EXAMINATION: General: The patient is 73 year old, male well nourished, well hydrated in no acute distress. The patient is oriented to time, place, and person. VITALS: Blood pressure 152/79, pulse 82, height 167.6 cm (5' 6"), weight 96.6 kg (213 lb), SpO2 98%. Body mass index is 34.38 kg/m . HEENT: Normal cephalic, ataumatic, pupils are equally round, sclera are anicteric, mucous membranesare moist, oropharynx is clear. Neck has no masses, asymmetry or lymphadenopathy. Respiratory: Clear to auscultation and percussion. Normal respiratory excursion and pattern. Cardiac: Examination is regular rate and rhythm. Normal S1/S2 Abdominal exam: Soft, nontender, with no palpable masses. No hepatosplenomegaly. No palpable hernias. Extremities: no clubbing, cyanosis or edema. No adenopathy. LABORATORY VALUES: As Noted RADIOLOGIC STUDIES: As Noted Assessment IMPRESSION: screen for colon cancer, history of colon polyps, family hx of colon cancer PLAN: I have reviewed my findings with the surgeon. Will plan for lower endoscopy. We discussed therisks and benefits of the planned endoscopy in terms understandable to the patient. I have informedthe patient that complications can occur including failure to complete the endoscopy and perforation. Teresa had the opportunity to ask questions concerning the planned endoscopy. Teresa freely consents to surgery. I plan to use Golytely bowel preparation I have explained to the patient the difference between IV conscious sedation and MAC anesthesia - and I have offered either, according to the patient's wishes. I have explained that with IV conscioussedation there is no anesthesia provider available and therefore there is a limitation of the amount of IV medications that can be given and that the patient may wake up in the middle of the procedure and/or experience pain/discomfort during the procedure. Further discussion was done and the patient was given the opportunity to ask questions and all questions were answered. Teresa chooses IV conscious sedation. Teresa was counseled that if there are changes in his/her medical condition, to let the office knowif surgery should proceed. If there are changes in patient's medical condition from time of this encounter to the day of the procedure that preclude anesthesia, patient may have procedure cancelled for patient's safety. Diagnoses: (Z12.11) Screen for colon cancer (primary encounter diagnosis) (Z86.0100) History of colonic polyps (Z80.0) Family history of colon cancer Portions of this documentation were copied and pasted from previous office visit notes in order to provide a cohesive continuity of the history. The note has been reviewed and edited and updated as necessary. Karly Alvarado APRN.POWER PRESS TENDER UPDATED HISTORY AND PHYSICAL EXAMINATION SERVICE DATE: 09/06/2024 SERVICE TIME: 9:31 AM PHYSICAL EXAM MUST BE COMPLETED ON ADMISSION The History and Physical (completed in the past 30 days) has been reviewed and the patient has beenexamined. The contents accurately reflect the patient's condition with the following additions or revisions since the H&P was completed. Examination indicates no changes. This H&P can be found in the attached. SIGNATURE: Minh Gerber III, MD PATIENT NAME: Teresa Rainey DATE: September 06, 2024 TIME: 9:31 AM [facility]05-30-2025 History and physical note* Minh Gerber MD - 09/06/2024 9:45 AM EDT HISTORY AND PHYSICAL Teresa Rainey : 1950 REFERRING PHYSICIAN: Minh Gerber III [address] [facility] [address] CHIEF COMPLAINT: Patient presents with: Consult HPI: Teresa is a 73 year old male referred for endoscopy. Teresa notes due for screening colonoscopy- hx of polyps (2021). Teresa denies abdominal pain. Teresa denies diarrhea. Teresa notes constipation. -takes colace daily Teresa denies a change in bowel habits. Teresa denies melena. Teresa denies bright red blood per rectum. Teresa denies hemorrhoids. Teresa notes family history of colon issues. Father with colon cancer Teresa denies heartburn. Teresa denies dysphagia. Teresa denies a history of ulcers/ peptic ulcer disease. Nidia notes a hx of T2DM, HTN, HLD. He denies CP, SOB, dizziness, palpitations, syncope, edema, recent hospitalizations Teresa has undergone prior endoscopy. Last colonoscopy was 09/[address] Gerber at [facility]. Sedation:Fentanyl 50 micrograms IV, Midazolam 4 mg IV, Diphenhydramine 50 mg IV Impression: - Five medium polyps in the descending colon and in the transverse colon, removed with a hot snare.Resected and retrieved. - Diverticulosis in the sigmoid colon. - Non-bleeding internal hemorrhoids. - The examination was otherwise normal. FINAL DIAGNOSIS A. Colon, transverse, polyp x2, polypectomy: - Fragments of tubular adenoma. B. Colon, descending, polyp x3, polypectomy: - Fragments of tubular adenoma. CURRENT MEDICATIONS Current Outpatient Medications Medication Sig glipiZIDE (GLUCOTROL) 5 mg tablet Take 5 mg by mouth two times a day before meals. hydrALAZINE (APRESOLINE) 10 mg tablet Take 10 mg by mouth three times a day. finasteride (PROSCAR) 5 mg tablet Take 5 mg by mouth once daily. cyclobenzaprine (FLEXERIL) 10 mg tablet Take 10 mg by mouth three times a day as needed. losartan (COZAAR) 50 mg tablet propranolol ER (INDERAL LA) 120 mg 24 hr capsule metFORMIN (GLUCOPHAGE) 1,000 mg tablet mecobalamin (B12 ACTIVE ORAL) Take by mouth. multivitamin (MULTI-DAY ORAL) Take by mouth. simvastatin (ZOCOR) 10 mg tablet Take 10 mg by mouth daily at bedtime. diphenhydrAMINE (BENADRYL ALLERGY) 25 mg tablet Take 25 mg by mouth every 6 hours as needed. Fish Oil-[place]-3 Fatty Acids (FISH OIL) 340-1,000 mg cap Take 1 capsule by mouth three times daily. peg 3350-Electrolytes (GOLYTELY) 236-22.74-6.74 -5.86 gram suspension Take 4,000 mL by mouth one time only for 1 dose. Refer to printed prep instructions from your provider. No current facility-administered medications for this visit. ALLERGIES: Amoxicillin and Penicillins PAST MEDICAL HISTORY PAST MEDICAL HISTORY Diagnosis Date Allergic rhinitis, cause unspecified Cervical disc disorder Diabetes (HCC) Family history of malignant neoplasm of gastrointestinal tract Kidney stones Mixed hyperlipidemia Other and unspecified hyperlipidemia Unspecified constipation Unspecified essential hypertension PAST SURGICAL HISTORY PAST SURGICAL HISTORY Procedure Laterality Date BACK SURGERY HX COLONOSCOPY 09/09/2021 repeat in 3 years-multiple polyps COLONOSCOPY FLX DX W/COLLJ SPEC WHEN PFRMD 11/27/2008 COLONOSCOPY FLX DX W/COLLJ SPEC WHEN PFRMD 05/26/2014 Repeat 2019 CYSTOSCOPY,URETEROSCOPY,LITHOTRIPSY 2008 LITHOTRIPSY XTRCORP SHOCK WAVE 2008 Lithotripsy X2 PAST SURGICAL HISTORY OF 1988 CERVICAL DISECTOMY SKIN BIOPSY HX TONSILLECTOMY PRIMARY/SECONDARY <AGE 12 1969 Tonsillectomy FAMILY HISTORY FAMILY HISTORY Problem Relation Age of Onset Cancer Mother Colon Cancer Father Colon Cancer Paternal Aunt Colon Cancer Paternal Uncle other (CROHN'S) Other SOCIAL HISTORY Social History Tobacco Use Smoking status: Never Smokeless tobacco: Current Types: Snuff Vaping Use Vaping status: Never Used Substance Use Topics Alcohol use: Yes Comment: Occasionally Drug use: No PHYSICAL EXAMINATION: General: The patient is 73 year old, male well nourished, well hydrated in no acute distress. The patient is oriented to time, place, and person. VITALS: Blood pressure 152/79, pulse 82, height 167.6 cm (5' 6"), weight 96.6 kg (213 lb), SpO2 98%. Body mass index is 34.38 kg/m . HEENT: Normal cephalic, ataumatic, pupils are equally round, sclera are anicteric, mucous membranesare moist, oropharynx is clear. Neck has no masses, asymmetry or lymphadenopathy. Respiratory: Clear to auscultation and percussion. Normal respiratory excursion and pattern. Cardiac: Examination is regular rate and rhythm. Normal S1/S2 Abdominal exam: Soft, nontender, with no palpable masses. No hepatosplenomegaly. No palpable hernias. Extremities: no clubbing, cyanosis or edema. No adenopathy. LABORATORY VALUES: As Noted RADIOLOGIC STUDIES: As Noted Assessment IMPRESSION: screen for colon cancer, history of colon polyps, family hx of colon cancer PLAN: I have reviewed my findings with the surgeon. Will plan for lower endoscopy. We discussed therisks and benefits of the planned endoscopy in terms understandable to the patient. I have informedthe patient that complications can occur including failure to complete the endoscopy and perforation. Teresa had the opportunity to ask questions concerning the planned endoscopy. Teresa freely consents to surgery. I plan to use Golytely bowel preparation I have explained to the patient the difference between IV conscious sedation and MAC anesthesia - and I have offered either, according to the patient's wishes. I have explained that with IV conscioussedation there is no anesthesia provider available and therefore there is a limitation of the amount of IV medications that can be given and that the patient may wake up in the middle of the procedure and/or experience pain/discomfort during the procedure. Further discussion was done and the patient was given the opportunity to ask questions and all questions were answered. Teresa chooses IV conscious sedation. Teresa was counseled that if there are changes in his/her medical condition, to let the office knowif surgery should proceed. If there are changes in patient's medical condition from time of this encounter to the day of the procedure that preclude anesthesia, patient may have procedure cancelled for patient's safety. Diagnoses: (Z12.11) Screen for colon cancer (primary encounter diagnosis) (Z86.0100) History of colonic polyps (Z80.0) Family history of colon cancer Portions of this documentation were copied and pasted from previous office visit notes in order to provide a cohesive continuity of the history. The note has been reviewed and edited and updated as necessary. Karly Alvarado APRN.POWER PRESS TENDER UPDATED HISTORY AND PHYSICAL EXAMINATION SERVICE DATE: 09/06/2024 SERVICE TIME: 9:31 AM PHYSICAL EXAM MUST BE COMPLETED ON ADMISSION The History and Physical (completed in the past 30 days) has been reviewed and the patient has beenexamined. The contents accurately reflect the patient's condition with the following additions or revisions since the H&P was completed. Examination indicates no changes. This H&P can be found in the attached. SIGNATURE: Minh Gerber III, MD PATIENT NAME: Teresa Rainey DATE: September 06, 2024 TIME: 9:31 AM [facility] History of Present illness Narrative* Karly Alvarado APRN.CNP - 08/12/2024 2:30 PM EDT HISTORY AND PHYSICAL Teresa Rainey : 1950 REFERRING PHYSICIAN: Minh Gerber III [address] [facility] [address] CHIEF COMPLAINT: Patient presents with: Consult HPI: Teresa is a 73 year old male referred for endoscopy. Teresa notes due for screening colonoscopy- hx of polyps (2021). Teresa denies abdominal pain. Teresa denies diarrhea. Teresa notes constipation. -takes colace daily Teresa denies a change in bowel habits. Teresa denies melena. Teresa denies bright red blood per rectum. Teresa denies hemorrhoids. Teresa notes family history of colon issues. Father with colon cancer Teresa denies heartburn. Teresa denies dysphagia. Teresa denies a history of ulcers/ peptic ulcer disease. Nidia notes a hx of T2DM, HTN, HLD. He denies CP, SOB, dizziness, palpitations, syncope, edema, recent hospitalizations Teresa has undergone prior endoscopy. Last colonoscopy was 09/[address] Gerber at [facility]. Sedation:Fentanyl 50 micrograms IV, Midazolam 4 mg IV, Diphenhydramine 50 mg IV Impression: - Five medium polyps in the descending colon and in the transverse colon, removed with a hot snare.Resected and retrieved. - Diverticulosis in the sigmoid colon. - Non-bleeding internal hemorrhoids. - The examination was otherwise normal. FINAL DIAGNOSIS A. Colon, transverse, polyp x2, polypectomy: - Fragments of tubular adenoma. B. Colon, descending, polyp x3, polypectomy: - Fragments of tubular adenoma. Current Outpatient Medications Medication Sig glipiZIDE (GLUCOTROL) 5 mg tablet Take 5 mg by mouth two times a day before meals. hydrALAZINE (APRESOLINE) 10 mg tablet Take 10 mg by mouth three times a day. finasteride (PROSCAR) 5 mg tablet Take 5 mg by mouth once daily. cyclobenzaprine (FLEXERIL) 10 mg tablet Take 10 mg by mouth three times a day as needed. losartan (COZAAR) 50 mg tablet propranolol ER (INDERAL LA) 120 mg 24 hr capsule metFORMIN (GLUCOPHAGE) 1,000 mg tablet mecobalamin (B12 ACTIVE ORAL) Take by mouth. multivitamin (MULTI-DAY ORAL) Take by mouth. simvastatin (ZOCOR) 10 mg tablet Take 10 mg by mouth daily at bedtime. diphenhydrAMINE (BENADRYL ALLERGY) 25 mg tablet Take 25 mg by mouth every 6 hours as needed. Fish Oil-[place]-3 Fatty Acids (FISH OIL) 340-1,000 mg cap Take 1 capsule by mouth three times daily. peg 3350-Electrolytes (GOLYTELY) 236-22.74-6.74 -5.86 gram suspension Take 4,000 mL by mouth one time only for 1 dose. Refer to printed prep instructions from your provider. No current facility-administered medications for this visit. ALLERGIES: Amoxicillin and Penicillins PAST MEDICAL HISTORY Diagnosis Date Allergic rhinitis, cause unspecified Cervical disc disorder Diabetes (HCC) Family history of malignant neoplasm of gastrointestinal tract Kidney stones Mixed hyperlipidemia Other and unspecified hyperlipidemia Unspecified constipation Unspecified essential hypertension PAST SURGICAL HISTORY Procedure Laterality Date BACK SURGERY HX COLONOSCOPY 09/09/2021 repeat in 3 years-multiple polyps COLONOSCOPY FLX DX W/COLLJ SPEC WHEN PFRMD 11/27/2008 COLONOSCOPY FLX DX W/COLLJ SPEC WHEN PFRMD 05/26/2014 Repeat 2019 CYSTOSCOPY,URETEROSCOPY,LITHOTRIPSY 2009 LITHOTRIPSY XTRCORP SHOCK WAVE 2008 Lithotripsy X2 PAST SURGICAL HISTORY OF 1988 CERVICAL DISECTOMY SKIN BIOPSY HX TONSILLECTOMY PRIMARY/SECONDARY <AGE 12 1969 Tonsillectomy FAMILY HISTORY Problem Relation Age of Onset Cancer Mother Colon Cancer Father Colon Cancer Paternal Aunt Colon Cancer Paternal Uncle other (CROHN'S) Other Social History Tobacco Use Smoking status: Never Smokeless tobacco: Current Types: Snuff Vaping Use Vaping status: Never Used Substance Use Topics Alcohol use: Yes Comment: Occasionally Drug use: No PHYSICAL EXAMINATION: General: The patient is 73 year old, male well nourished, well hydrated in no acute distress. The patient is oriented to time, place, and person. VITALS: Blood pressure 152/79, pulse 82, height 167.6 cm (5' 6"), weight 96.6 kg (213 lb), SpO2 98%. Body mass index is 34.38 kg/m . HEENT: Normal cephalic, ataumatic, pupils are equally round, sclera are anicteric, mucous membranesare moist, oropharynx is clear. Neck has no masses, asymmetry or lymphadenopathy. Respiratory: Clear to auscultation and percussion. Normal respiratory excursion and pattern. Cardiac: Examination is regular rate and rhythm. Normal S1/S2 Abdominal exam: Soft, nontender, with no palpable masses. No hepatosplenomegaly. No palpable hernias. Extremities: no clubbing, cyanosis or edema. No adenopathy. LABORATORY VALUES: As Noted RADIOLOGIC STUDIES: As Noted Assessment IMPRESSION: screen for colon cancer, history of colon polyps, family hx of colon cancer PLAN: I have reviewed my findings with the surgeon. Will plan for lower endoscopy. We discussed therisks and benefits of the planned endoscopy in terms understandable to the patient. I have informedthe patient that complications can occur including failure to complete the endoscopy and perforation. Teresa had the opportunity to ask questions concerning the planned endoscopy. Teresa freely consents to surgery. I plan to use Golytely bowel preparation I have explained to the patient the difference between IV conscious sedation and MAC anesthesia - and I have offered either, according to the patient's wishes. I have explained that with IV conscioussedation there is no anesthesia provider available and therefore there is a limitation of the amount of IV medications that can be given and that the patient may wake up in the middle of the procedure and/or experience pain/discomfort during the procedure. Further discussion was done and the patient was given the opportunity to ask questions and all questions were answered. Teresa chooses IV conscious sedation. Teresa was counseled that if there are changes in his/her medical condition, to let the office knowif surgery should proceed. If there are changes in patient's medical condition from time of this encounter to the day of the procedure that preclude anesthesia, patient may have procedure cancelled for patient's safety. Diagnoses: (Z12.11) Screen for colon cancer (primary encounter diagnosis) (Z86.0100) History of colonic polyps (Z80.0) Family history of colon cancer Portions of this documentation were copied and pasted from previous office visit notes in order to provide a cohesive continuity of the history. The note has been reviewed and edited and updated as necessary. Karly Alvarado APRN.TODD documented in this encounterBet[facility]25 NoteHNO ID: [id number] Author: KARLY ALVARADO APRN.TODD Service: ? Author Type: Nurse Practitioner Type: Progress Notes Filed: 08/12/2024 14:53 Note Text: HISTORY AND PHYSICAL Teresa Rainey : 1950 REFERRING PHYSICIAN: Minh Gerber III [address] [facility] [address] CHIEF COMPLAINT: Patient presents with: Consult HPI: Teresa is a 73 year old male referred for endoscopy. Teresa notes due for screening colonoscopy- hx of polyps (2021). Teresa denies abdominal pain. Teresa denies diarrhea. Teresa notes constipation. -takes colace daily Teresa denies a change in bowel habits. Teresa denies melena. Teresa denies bright red blood per rectum. Teresa denies hemorrhoids. Teresa notes family history of colon issues. Father with colon cancer Teresa denies heartburn. Teresa denies dysphagia. Teresa denies a history of ulcers/ peptic ulcer disease. Nidia notes a hx of T2DM, HTN, HLD. He denies CP, SOB, dizziness, palpitations, syncope, edema, recent hospitalizations Teresa has undergone prior endoscopy. Last colonoscopy was 09/[address] Gerber at [facility]. Sedation:Fentanyl 50 micrograms IV, Midazolam 4 mg IV, Diphenhydramine 50 mg IV Impression: - Five medium polyps in the descending colon and in the transverse colon, removed with a hot snare. Resected and retrieved. - Diverticulosis in the sigmoid colon. - Non-bleeding internal hemorrhoids. - The examination was otherwise normal. FINAL DIAGNOSIS A. Colon, transverse, polyp x2, polypectomy: - Fragments of tubular adenoma. B. Colon, descending, polyp x3, polypectomy: - Fragments of tubular adenoma. Current Outpatient Medications Medication Sig glipiZIDE (GLUCOTROL) 5 mg tablet Take 5 mg by mouth two times a day before meals. hydrALAZINE (APRESOLINE) 10 mg tablet Take 10 mg by mouth three times a day. finasteride (PROSCAR) 5 mg tablet Take 5 mg by mouth once daily. cyclobenzaprine (FLEXERIL) 10 mg tablet Take 10 mg by mouth three times a day as needed. losartan (COZAAR) 50 mg tablet propranolol ER (INDERAL LA) 120 mg 24 hr capsule metFORMIN (GLUCOPHAGE) 1,000 mg tablet mecobalamin (B12 ACTIVE ORAL) Take by mouth. multivitamin (MULTI-DAY ORAL) Take by mouth. simvastatin (ZOCOR) 10 mg tablet Take 10 mg by mouth daily at bedtime. diphenhydrAMINE (BENADRYL ALLERGY) 25 mg tablet Take 25 mg by mouth every 6 hours as needed. Fish Oil-[place]-3 Fatty Acids (FISH OIL) 340-1,000 mg cap Take 1 capsule by mouth three times daily. peg 3350-Electrolytes (GOLYTELY) 236-22.74-6.74 -5.86 gram suspension Take 4,000 mL by mouth one time only for 1 dose. Refer to printed prep instructions from your provider. No current facility-administered medications for this visit. ALLERGIES: Amoxicillin and Penicillins PAST MEDICAL HISTORY Diagnosis Date Allergic rhinitis, cause unspecified Cervical disc disorder Diabetes (HCC) Family history of malignant neoplasm of gastrointestinal tract Kidney stones Mixed hyperlipidemia Other and unspecified hyperlipidemia Unspecified constipation Unspecified essential hypertension PAST SURGICAL HISTORY Procedure Laterality Date BACK SURGERY HX COLONOSCOPY 09/09/2021 repeat in 3 years-multiple polyps COLONOSCOPY FLX DX W/COLLJ SPEC WHEN PFRMD 11/27/2008 COLONOSCOPY FLX DX W/COLLJ SPEC WHEN PFRMD 05/26/2014 Repeat 2019 CYSTOSCOPY,URETEROSCOPY,LITHOTRIPSY 2009 LITHOTRIPSY XTRCORP SHOCK WAVE 2008 Lithotripsy X2 PAST SURGICAL HISTORY OF 1988 CERVICAL DISECTOMY SKIN BIOPSY HX TONSILLECTOMY PRIMARY/SECONDARY Tonsillectomy FAMILY HISTORY Problem Relation Age of Onset Cancer Mother Colon Cancer Father Colon Cancer Paternal Aunt Colon Cancer Paternal Uncle other (CROHN'S) Other Social History Tobacco Use Smoking status: Never Smokeless tobacco: Current Types: Snuff Vaping Use Vaping status: Never Used Substance Use Topics Alcohol use: Yes Comment: Occasionally Drug use: No PHYSICAL EXAMINATION: General: The patient is 73 year old, male well nourished, well hydrated in no acute distress. The patient is oriented to time, place, and person. VITALS: Blood pressure 152/79, pulse 82, height 167.6 cm (5' 6"), weight 96.6 kg (213 lb), SpO2 98%. Body mass index is 34.38 kg/m?. HEENT: Normal cephalic, ataumatic, pupils are equally round, sclera are anicteric, mucous membranes are moist, oropharynx is clear. Neck has no masses, asymmetry or lymphadenopathy. Respiratory: Clear to auscultation and percussion. Normal respiratory excursion and pattern. Cardiac: Examination is regular rate and rhythm. Normal S1/S2 Abdominal exam: Soft, nontender, with no palpable masses. No hepatosplenomegaly. No palpable hernias. Extremities: no clubbing, cyanosis or edema. No adenopathy. LABORATORY VALUES: As Noted RADIOLOGIC STUDIES: As Noted Assessment IMPRESSION: screen for colon cancer, history of colon polyps, family (more content not included)...[facility]04-17-2025 Evaluation note* Diagnosis Onset Date Resolution Status Admit Date Status post cervical spinal fusion acute July 25, 2024 1:36pm Status post cervical spinal fusion acute August 22, 2024 2 :24pm Status post cervical spinal fusion acute October 18, 2024 12:58pm [facility] Work Phone: 1(251) 248-432304-03-2025 Progress note [facility] Medical Records Department [address] [place] [address] Progress Note - Orthopedic 07/11/24 1229 MR#: [id number] Acct: [id number] Name: TERESA RAINEY Rep #:[id number] 1 : 1950 73 From: Florina KYLE PCP: Dr. Nathanael Maradiaga, DO Status:ADM SILVANO Location: MS3 [id number] Subjective Subjective Postop day 1 C4-6 ACDF. Patient is doing well with his pain well-managed. Patient has been up with therapy and has been cleared for home discharge. Patient denies any dysphagia. Says that nursing hadto change the dressing 3 times due to saturation. Seen with Dr. Yip. Objective Data Objective Data Vital Signs: Vital Signs Temp Pulse Resp BP Pulse Ox O2 Del Method O2 Flow Rate 97.9 F 74 18 161/77 H 98 Room Air 2 07/11/24 09:38 07/11/24 09:38 07/11/24 09:38 07/11/24 09:38 07/11/24 09:55 07/11/24 09:38 07/10/24 16:05 Oxygen Flow Rate (L/min) 2 Oxygen Delivery Method Room Air Weight: 220 lb 7.396 oz Body Mass Index (BMI) 34.5 Intake & Output: Intake and Output for Last 24 Hours 07/09/24 07/10/24 07/11/24 23:59 23:59 23:59 Intake Total 1591.25 / 1591.25 50 / 50 Output Total 700 / 700 Balance 891.25 / 891.25 50 / 50 Lab / Micro Data 07/11/24 06:18 07/11/24 06:18 Labs: Laboratory Results - last 24 hr 07/10/24 22:21: POC Glucose 210 H 07/11/24 06:18: WBC 14.4 H, RBC 3.88 L, Hgb 12.3 L, Hct 35.7 L, MCV 92.0, MCH 31.7, MCHC 34.5, RDW Std Deviation 42.1, RDW Coeff of Ethel 12.6, Plt Count 240, MPV 10.8, Sodium 138, Potassium 4.6, Chloride 100, Carbon Dioxide 18.9 L, Anion Gap 19 H, BUN 19, Creatinine 1.14, Estim Creat Clear Calc 65.02, Est GFR (MDRD) Non-Af 68, BUN/Creatinine Ratio 17.0, Glucose 199 H, Calcium 9.2 07/11/24 06:33: POC Glucose 213 H Micro: Microbiology 06/27/24 13:05 Swab (Method) Nasal Screen MRSA/MSSA - Final Radiography Diagnostic Testing: Radiology Impression Cervical Spine X-Ray 07/11/24 04:40 IMPRESSION: Status post anterior cervical disc fusion with intervertebral disc spacers C4 through C6 appears anatomic and intact as above. No fracture or malalignment identified. Reading Location: [id number] Physical Exam Narrative Gauze and Tegaderm was removed, drain removed. New Tegaderm and gauze was applied over the incision. Cervical collar was reapplied and instructed patienton how to adjusted to comfort. Neurological examination of the upper extremity shows 5X5 power. Normal sensation across all dermatomes. Const alert, oriented x3 and no apparent distress Assessment & Plan Assessment/Plan (1) Status post cervical spinal fusion: PLAN: Plan Obtained and reviewed x-rays today which show hardware and bone graft in good position. Patient is postop day 1 C4-6 ACDF. Pain has been well-managed, no dysphagia, therapy has cleared for home discharge. Home meds include hydrocodone?acetaminophen, meloxicam, methocarbamol, senna. OARRS reviewed. Reviewed restrictions of no bending, lifting, twisting. He will wear the cervical collar full-time for the first 2 weeks. He will follow-up in the clinic in 2 weeks. Patient is in agreement. 07/11/24 1233 Cosigner Signature (if applicable): CC: ~ Signed [facility]04-03-2025 Radiology Diagnostic study note [facility] Imaging Services [address] [place] [address] Cerv Spine 2 or 3 Views MR#: [id number] Acct: [id number] Name: TERESA RAINEY Rep #: [id number] 1 : 1950 M 73 From: Maninder Puckett MD PCP: Dr. Nathanael Maradiaga, Status: ADM SILVANO Study:Cerv Spine 2 or 3 Views Date of Exam: 07/11/24 Exam# [id number] Ordering Dr: Alessandro Metz PROCEDURE: CERV SPINE 2 OR 3 VIEWS 07/11/2024 REASON FOR EXAM: S/P CERVICAL FUSION TECHNIQUE: 2 views of the cervical spine. COMPARISON: Intraoperative fluoroscopic views 07/10/2024 and 05/17/2024 FINDINGS: The cervical spine is visualized on the lateral view from the skull base to the mid C6 level. Overlapping gown clips at the C6 level. Status post anterior cervical disc fusion with intervertebral disc spacers C4 through C6 appears anatomic and intact. No fracture or malalignment identified. Mild prevertebral soft tissue swelling/thickening. Left anterior neck Drake drain, safety pin and cervical collar noted. The visualized apices appear clear. RAD/Cerv Spine 2 or 3 Views IMPRESSION: Status post anterior cervical disc fusion with intervertebral disc spacers C4 through C6 appears anatomic and intact as above. No fracture or malalignment identified. Reading Location: [facility] CC: ANABELLA Warren; Dr. Nathanael Maradiaga DO ~ [employer] Specialist: Signed [facility]04-02-2025 Progress note Author Racheal [facility] Note Date/Time July 10, 2024 7:28 pm [facility] Medical Records Department [address] [place] [address] Progress Note 07/10/24 1707 MR#: [id number] Acct: [id number] Name: TERESA RAINEY Rep #:[id number] 9 : 1950 73 From: Racheal Neves MD PCP: Dr. Nathanael Maradiaga, Status:ADM SILVANO Location: [place] [address] Subjective Subjective Patient is a 73-year-old male with past medical history as outlined was admittedto the service of orthopedic spine surgery on account of cervical stenosis with radicular myelopathy in the setting of previous C6-C7 fusion. He had anterior cervical disc fusion of C4-C6 on 07/10/2024. Hospitalist service was consulted for medical management. Patient seen and examined in his bed. His and daughter were by his bedside. He had no active complaints. Pain was well-controlled. He denied anyfever, chills, palpitations, dizziness, nausea or vomiting. Review of systems is otherwise negative. Objective Data Objective Data Vital Signs: Vital Signs Temp Pulse Resp BP Pulse Ox O2 Del Method O2 Flow Rate 97.9 F 76 18 170/76 H 98 Nasal Cannula 2 07/10/24 15:45 07/10/24 15:45 07/10/24 15:45 07/10/24 15:45 07/10/24 16:05 07/10/24 16:05 07/10/24 16:05 Oxygen Flow Rate (L/min) 2 Oxygen Delivery Method Nasal Cannula Weight: 220 lb 7.396 oz Body Mass Index (BMI) 34.5 Intake & Output: Intake and Output for Last 24 Hours 07/08/24 07/09/24 07/10/24 23:59 23:59 23:59 Intake Total 1422 / 1422 Balance 1422 / 1422 Lab / Micro Data 06/27/24 13:05 06/27/24 13:05 Labs: Laboratory Results - last 24 hr 07/10/24 06:02: POC Glucose 266 H 07/10/24 11:12: POC Glucose 186 H Micro: Microbiology 06/27/24 13:05 Swab (Method) Nasal Screen MRSA/MSSA - Final Radiography Diagnostic Testing: Radiology Impression Cervical Spine X-Ray 07/10/24 07:30 IMPRESSION: Intraoperative fluoroscopic services provided for fusion at the C4-C5 and C5-C6 levels with anterior plate and screw fixation device. Reading Location: [facility] Physical Exam Const alert, oriented x3 and no apparent distress Constitutional Narrative: class I obesity. General Appearance: cooperative HEENT normocephalic, head/scalp atraumatic, moist oral mucous membranes and oropharynxnormal Eyes PERRL and EOMs intact bilaterally Neck no lymphadenopathy and supple Neck Narrative: cervical collar in situ. Intact anterior neck surgical site dressing. Lymph Lymphatic: no lymphadenopathy noted and no lymphedema noted Resp Resp Narrative: mildly diminished breath sounds bibasally, no wheezes or crackles. On 2L of oxygen by nasal canula Cardio regular rate, regular rhythm, S1 normal heart sound, S2 normal heart sound and no murmurs Peripheral Pulses: pulses 2+ throughout GI normal to inspection, nondistended, normoactive bowel sounds, soft to palpation,non-tender and non-distended Extremity normal capillary refill, no clubbing, cyanosis or edema and no calf tenderness General Extremity: no tenderness to palpation of joints or extremities Skin General Skin Exam: no breakdown Neuro CN's II-XII intact bilaterally, no focal motor deficits and no sensory deficits noted Motor Exam: strength 5/5 throughout and general weakness Psych thought process normal and cooperative Appearance: appropriate Assessment & Plan Assessment/Plan (1) Cervical myelopathy: (2) 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 * Pain management as per primary service. * PT OT on board. Fall precautions. * Incentive spirometry. * #Hypoxia: * Currently on 2 L of oxygen. * Does not wear oxygen at home. * Likely a sequelae of surgery. * Breathing treatments with bronchodilators. * Titrate oxygen off as tolerated. #Type 2 diabetes mellitus: On glipizide and metformin. Insulin sliding scale. Accu-Cheks ACHS. #Hypertension: On losartan and hydralazine as well as propranolol #Hyperlipidemia: On statin DVT prophylaxis: As per primary service. On SCDs. Thank you for the courtesy of the consult. Hospitalist service will continue tofollow with you. Charges/Coding Visit Charges Inpatient E&M: 86437 Subs Hosp L2 07/10/241927 <Electronically signed by Racheal Neves MD> Racheal Neves MD Cosigner Signature (if applicable): CC: ~ Signed [facility] Work Phone: 1(598) 705-955904-02-2025 Progress note [facility] Medical Records Department [address] [place] [address] Progress Note 07/10/24 1707 MR#: [id number] Acct: [id number] Name: TERESA RAINEY Rep #:[id number] 9 : 1950 73 From: Racheal Neves MD PCP: Dr. Nathanael Maradiaga, DO Status:ADM SILVANO Location: [facility]4 Subjective Subjective Patient is a 73-year-old male with past medical history as outlined was admittedto the service of orthopedic spine surgery on account of cervical stenosis with radicular myelopathy in the setting of previous C6-C7 fusion. He had anterior cervical disc fusion of C4-C6 on 07/10/2024. Hospitalist service was consulted for medical management. Patient seen and examined in his bed. His and daughter were by his bedside. He had no active complaints. Pain was well-controlled. He denied anyfever, chills, palpitations, dizziness, nausea or vomiting. Review of systems is otherwise negative. Objective Data Objective Data Vital Signs: Vital Signs Temp Pulse Resp BP Pulse Ox O2 Del Method O2 Flow Rate 97.9 F 76 18 170/76 H 98 Nasal Cannula 2 07/10/24 15:45 07/10/24 15:45 07/10/24 15:45 07/10/24 15:45 07/10/24 16:05 07/10/24 16:05 07/10/24 16:05 Oxygen Flow Rate (L/min) 2 Oxygen Delivery Method Nasal Cannula Weight: 220 lb 7.396 oz Body Mass Index (BMI) 34.5 Intake & Output: Intake and Output for Last 24 Hours 07/08/24 07/09/24 07/10/24 23:59 23:59 23:59 Intake Total 1422 / 1422 Balance 1422 / 1422 Lab / Micro Data 06/27/24 13:05 06/27/24 13:05 Labs: Laboratory Results - last 24 hr 07/10/24 06:02: POC Glucose 266 H 07/10/24 11:12: POC Glucose 186 H Micro: Microbiology 06/27/24 13:05 Swab (Method) Nasal Screen MRSA/MSSA - Final Radiography Diagnostic Testing: Radiology Impression Cervical Spine X-Ray 07/10/24 07:30 IMPRESSION: Intraoperative fluoroscopic services provided for fusion at the C4-C5 and C5-C6 levels with anterior plate and screw fixation device. Reading Location: [facility] Physical Exam Const alert, oriented x3 and no apparent distress Constitutional Narrative: class I obesity. General Appearance: cooperative HEENT normocephalic, head/scalp atraumatic, moist oral mucous membranes and oropharynxnormal Eyes PERRL and EOMs intact bilaterally Neck no lymphadenopathy and supple Neck Narrative: cervical collar in situ. Intact anterior neck surgical site dressing. Lymph Lymphatic: no lymphadenopathy noted and no lymphedema noted Resp Resp Narrative: mildly diminished breath sounds bibasally, no wheezes or crackles. On 2L of oxygen by nasal canula Cardio regular rate, regular rhythm, S1 normal heart sound, S2 normal heart sound and no murmurs Peripheral Pulses: pulses 2+ throughout GI normal to inspection, nondistended, normoactive bowel sounds, soft to palpation,non-tender and non-distended Extremity normal capillary refill, no clubbing, cyanosis or edema and no calf tenderness General Extremity: no tenderness to palpation of joints or extremities Skin General Skin Exam: no breakdown Neuro CN's II-XII intact bilaterally, no focal motor deficits and no sensory deficits noted Motor Exam: strength 5/5 throughout and general weakness Psych thought process normal and cooperative Appearance: appropriate Assessment & Plan Assessment/Plan (1) Cervical myelopathy: (2) 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 * Pain management as per primary service. * PT OT on board. Fall precautions. * Incentive spirometry. * #Hypoxia: * Currently on 2 L of oxygen. * Does not wear oxygen at home. * Likely a sequelae of surgery. * Breathing treatments with bronchodilators. * Titrate oxygen off as tolerated. #Type 2 diabetes mellitus: On glipizide and metformin. Insulin sliding scale. Accu-Cheks ACHS. #Hypertension: On losartan and hydralazine as well as propranolol #Hyperlipidemia: On statin DVT prophylaxis: As per primary service. On SCDs. Thank you for the courtesy of the consult. Hospitalist service will continue tofollow with you. Charges/Coding Visit Charges Inpatient E&M: 38120 Subs Hosp L2 07/10/241927 Racheal Neves MD Cosigner Signature (if applicable): CC: ~ Signed [facility]04-02-2025 Consult note Author Jann Winston [facility] Note Date/Time July 10, 2024 11:2 9am [facility] Medical Records Department [address] [place] [address] Anesthesia Postop Eval II 07/10/24 1129 MR#: [id number] Acct: [id number] Name: TERESA RAINEY Rep #:[id number] 2 : 1950 73 From: Jann Winston MD PCP: Dr. Nathanael Maradiaga, DO Status:REG SDC Y Race: C Location: [place] [address] Anesthesia Postop Eval I Sum Postop Eval Completion status Anesthesia document: Postop Eval 1 completed: Yes Anesthesia Postop Eval I Summary Anesthesia Postop Eval I Summary: Anesthesia Postop Eval I: Assessment Summary Airway patent Yes 07/10/24 10:59 DENTAL OFFICE RECEPTIONIST.[email or web address] Spontaneous unlabored Yes 07/10/24 10:59 DENTAL OFFICE RECEPTIONIST.PKEL respirations Mental status Asleep 07/10/24 10:59 DENTAL OFFICE RECEPTIONIST.PKEL nausea No 07/10/24 10:59 DENTAL OFFICE RECEPTIONIST.PKEL Vomiting No 07/10/24 10:59 DENTAL OFFICE RECEPTIONIST.PKEL Anesthesia Postop Eval I: Fluid Summary Crystalloid volume administer 2,400 07/10/24 10:59 DENTAL OFFICE RECEPTIONIST.PKEL (ml) Colloids volume administered ( ml) Blood Product volume administered (ml) Total IV fluid infused 2,400 07/10/24 10:59 DENTAL OFFICE RECEPTIONIST.PKEL Anesthesia Postop Eval I: Summary Notes Anesthesia Complication No 07/10/24 10:59 DENTAL OFFICE RECEPTIONIST.PKEL Anesthesia Complication Comment: Post-operative progress note Anesthesia: Postop Eval II Evaluation Mental status: Awake Pain Level: 0 nausea: No Vomiting: No 07/10/241128 <Electronically signed by Jann Winston MD > Date _ Jann Winston MD Cosigner Signature: Date CC: ~ Signed [facility] Work Phone: 1(585) 922-187704-02-2025 Consult note Author Chon Epps [facility] Note Date/Time July 10, 2024 10:5 9am [facility] Medical Records Department [address] [place] [address] Anesthesia Postop Eval I 07/10/24 1058 MR#: [id number] Acct: [id number] Name: REDDTERESASTEVEN JACOB Rep #:[id number] 8 : 1950 73 From: Chon Epps CRNA PCP: Dr. Nathanael Maradiaga, DO Status:REG SDC Y Race: C Location: [place] [address] Anesthesia: Postop Eval I Current Vital Signs Temperature: 98 F Pulse Rate: 75 Blood Pressure: 135/61 Respiratory Rate: 16 Pulse Ox: 97 Oxygen Delivery Method: Venturi Mask Oxygen Flow Rate (L/min): 4 Assessment Airway patent: Yes Spontaneous unlabored respirations: Yes Mental status: Asleep nausea: No Vomiting: No Anesthesia Complication: No Fluid Hydration Crystalloid volume administer (ml): 2,400 Total IV fluid infused: 2,400 Progress Note Anesthesia document: Postop Eval 1 completed: Yes 07/10/24 105 <Electronically signed by Chon taylor CRNA> Date _ Chon Epps CRNA Cosigner Signature: Date CC: ~ Signed [facility] Work Phone: 1(515) 199-891804-02-2025 Consult note [facility] Medical Records Department [address] [place] [address] Anesthesia Postop Eval II 07/10/24 1129 MR#: [id number] Acct: [id number] Name: ISMA RAINEYSTEVEN JACOB Rep #:[id number] 2 : 1950 73 From: Jann Winston MD PCP: Dr. Nathanael Maradiaga, DO Status:REG SDC Y Race: C Location: [place] [address] Anesthesia Postop Eval I Sum Postop Eval Completion status Anesthesia document: Postop Eval 1 completed: Yes Anesthesia Postop Eval I Summary Anesthesia Postop Eval I Summary: Anesthesia Postop Eval I: Assessment Summary Airway patent Yes 07/10/24 10:59 DENTAL OFFICE RECEPTIONIST.PKEL Spontaneous unlabored Yes 07/10/24 10:59 DENTAL OFFICE RECEPTIONIST.PKEL respirations Mental status Asleep 07/10/24 10:59 DENTAL OFFICE RECEPTIONIST.PKEL nausea No 07/10/24 10:59 DENTAL OFFICE RECEPTIONIST.PKEL Vomiting No 07/10/24 10:59 DENTAL OFFICE RECEPTIONIST.PKEL Anesthesia Postop Eval I: Fluid Summary Crystalloid volume administer 2,400 07/10/24 10:59 DENTAL OFFICE RECEPTIONIST.PKEL (ml) Colloids volume administered ( ml) Blood Product volume administered (ml) Total IV fluid infused 2,400 07/10/24 10:59 DENTAL OFFICE RECEPTIONIST.PKEL Anesthesia Postop Eval I: Summary Notes Anesthesia Complication No 07/10/24 10:59 DENTAL OFFICE RECEPTIONIST.PKEL Anesthesia Complication Comment: Post-operative progress note Anesthesia: Postop Eval II Evaluation Mental status: Awake Pain Level: 0 nausea: No Vomiting: No 07/10/24 1129 > Date _ Jann Winston [facility] Signature: Date CC: ~ Signed [facility]04-02-2025 Radiology Diagnostic study note [facility] Imaging Services [address] [place] [address] Cerv Spine 2 or 3 Views MR#: [id number] Acct: [id number] Name: TERESA RAINEY Rep #: [id number] 6 : 1950 M 73 From: Tyron Sprague MD PCP: Dr. Nathanael Maradiaga, Status: REG SDC Study:Cerv Spine 2 or 3 Views Date of Exam: 07/10/24 Exam# [id number] Ordering Dr: Anneliese Yip MD PROCEDURE: Intraoperative fluoroscopic services for cervical fusion. 07/10/2024 REASON FOR EXAM: ANTERIOR FUSION C4-5 AND C5-6 TECHNIQUE: Intraoperative fluoroscopic services. 25.6 seconds of fluoroscopy. 10.92 mGy. 9 fluoroscopic imageswere obtained. FINDINGS: Intraoperative fluoroscopic services provided for fusion at the C4-C5 and C5-C6 levels with anterior plate and screw fixation. RAD/Cerv Spine 2 or 3 Views IMPRESSION: Intraoperative fluoroscopic services provided for fusion at the C4-C5 and C5-C6 levels with anterior plate and screw fixation device. Reading Location: [place] [address] CC: Dr. Alexandre Yip MD; Dr. Nathanael Maradiaga, ~ [employer] Specialist: Signed [facility]04-02-2025 Consult note [facility] Medical Records Department [address] [place] [address] Anesthesia Postop Eval I 07/10/24 1058 MR#: [id number] Acct: [id number] Name: TERESA RAINEY Rep #:[id number] 8 : 1950 73 From: Chon Epps CRNA PCP: Dr. Nathanael Maradiaga, Status:REG SDC Y Race: C Location: [place] [address] Anesthesia: Postop Eval I Current Vital Signs Temperature: 98 F Pulse Rate: 75 Blood Pressure: 135/61 Respiratory Rate: 16 Pulse Ox: 97 Oxygen Delivery Method: Venturi Mask Oxygen Flow Rate (L/min): 4 Assessment Airway patent: Yes Spontaneous unlabored respirations: Yes Mental status: Asleep nausea: No Vomiting: No Anesthesia Complication: No Fluid Hydration Crystalloid volume administer (ml): 2,400 Total IV fluid infused: 2,400 Progress Note Anesthesia document: Postop Eval 1 completed: Yes 07/10/24 1059 y DENTAL OFFICE RECEPTIONIST> Date _ Chon Thomasgatitorobe Signature: Date CC: ~ Signed [facility]04-02-2025 Procedure note [facility] Medical Records Department [address] [facility] [place] [address] Operative Report 07/10/24 1044 MR#: [id number] Acct: [id number] Name: TERESA RAINEY Rep #:[id number] 5 : 1950 73 From: Alexandre Yip MD PCP: Dr. Nathanael Maradiaga, DO Status:[facility] Location: [facility] 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, stenosis, radiculomyelopathy, prior C6-7 fusion, kyphosis Post-Operative Diagnosis: Same Surgery/Procedure Performed: C4-6 ACDF commutator repairer: Yes Medicaid Analyst: Florina Metz Tasks completed by circulation assistant: Closing, Removing tissue, Implanting device, Hemostasis: Electrocautery and Retracting Type of Anesthesia: General RN Documented Start/Stop Times: Operation Date: 07/10/24 07:30 Case Time Into Pre-Op 07/10/24 05:50 Out of Pre-Op 07/10/24 07:26 Anesthesia Start 07/10/24 07:30 Into Room 07/10/24 07:30 Procedure Start 07/10/24 08:10 Procedure End 07/10/24 10:35 Procedure Start Time: 08:10 Procedure Stop Time: 10:35 Select all DRAINS/GRAFTS/IMPLANTS that apply: Drains Drain details: Antoni , Graft Graft details: Structural allograft cortical cancellous strut, DBX and Implanted device Implanted device details: Medtronic Glorieta Elite plate instrumentation Estimated Blood Loss: 30 cc Specimen collected: No Description of surgery: Preoperative diagnosis: C4-6 disc degeneration with stenosis, radiculomyelopathy, prior C6-7 fusion, kyphosis Postoperative diagnosis: Same Name of procedure: C4-6 anterior cervical discectomy and fusion with plate instrumentation - Anterior cervical fusion C4-5, CPT code 97010 - Anterior plate instrumentation C4-6, CPT code 58749/59 - Anterior cervical fusion C5-6, CPT code 12069/51 -C4-5 structural allograft bone with DBX, CPT code 52058 -C5-6 structural allograft bone with DBX, CPT code 23107 Attending surgeon: Alexandre Yip M.D. Anesthesia: Gen. endotracheal Estimated blood loss: 30 mL Complications: None Instrumentation used: Medtronic Glorieta Elite plate, LASR corticocancellous block Indications: The patient is a pleasant 73-year-old gentleman who presented with neck pain with radiation into upper extremities, difficulty with dexterity and balance. MRI showed prior C6-7 noninstrumented fusion with adjacent segment degeneration with reversal of cervical lordosis with apex at C5-6, C4-6 disc degeneration with central and foraminal stenosis with cord indentation without cord signal changes. In order to halt the progression of myelopathy, the patient requested surgical treatment. All risks and benefits of the procedure were explained to the patient. The risks include but are not limited to infection, bleeding, injury to nerves and vessels, vertebral artery injury, spinal cord injury, paralysis, vocal cord paralysis, injury to esophagus, pseudoarthrosis, need for further procedures, adjacent segment degeneration. Procedure: The patient was identified in the preoperative suite using unique patient identifiers. Skin was marked consent was taken and all questions were answered. The patient was then brought back to the operative room and a timeout was performed. General endotracheal anesthesia was given. Intraoperative neuro monitoring leads were applied. The patient was carefully positioned supine on a regular OR table. A lateral view with a C-arm was done to identify the level andto define the incision. The anterior neck was then prepped and draped in the usual fashion. A final timeout was then performed. A transverse skin incision was taken to the left of midline. Subcutaneous tissue was then divided with Bovie. Platysma was identified and cut along the incision with scissors. The fascial interval between the sternocleidomastoid and the larynx was developed. Omohyoid was identified and retracted. The esophagus with the larynx was retracted medially to reach the prevertebral fascia. Marker x-ray was performedwith bent spinal needle and disc space and levels were confirmed. Longus coli muscle was elevated on both sides at and above and below C4-6 discs. Self-retaining retractors were then placed. A long handle knife was then used to perform annulotomyat C4-5. Disc fragments were removed with the pituitary. Morton pins were placed in C4 and C5 for disc distraction. Curettes and bur wasutilized to remove cartilage from the endplates. Discectomy wasperformed laterally up to the uncovertebral joints. Posterior osteophytes were thinned down with the bur and adequate decompression in the central and foraminal areas were performed and PLL was thinned out. Once the disc space was prepared, trials of various sizes were utilized. Thorough irrigation was given. 7 mm LASR cortical cancellous allograft bone large footprint was then fashioned in such a way that concavities were burred out inferiorly and superiorly and half cc of DBX (demineralized bone matrix) wassqueezed into the cancellous portion. The graft was then inserted into the C4-5 disc space. The retractors were then repositioned and the procedure was repeated for C5-6 disc with complete discectomy. Extensive osteophytes were noticed anteriorly at C5-6 which needed to be drilled out to enter the disc space. Graft size was 6 mm at with large footprint at C5-6. The grafts were found to be in good apposition with good pullout strength. A 42 mm Medtronic Glorieta Elite plate was then fixedto C4-6 with 17 mm screws. A lateral x-ray was then taken to check the length of the screws. Both AP and lateral x-rays showed good positioning of plate and screws. The locking mechanism over the scre w heads was then turned. Thorough irrigation was again given. Hemostasis was achieved. A Antoni drain was then inserted. Closure was done with 3-0 Vicrylfor the platysma and subcutaneous tissue layers and 4-0 Monocryl for the skin. Closure was done around the drain. Steri-Strips were applied and dressing was done with 4 x 4 gauze and Tegaderm. A cervical collar was then applied. The patient was then woken up from anesthesia extubated and taken to PACU in stable condition. From here, the patient will be transitioned to the floor. Intraoperative neuro monitoring was performed throughout this procedure. Motor evoked potentials were run periodically. All potentials remained at baseline throughout the procedure. I was present forthe entire surgery and performed the surgery myself. Surgical Findings: See operative note Complications Complications: No 07/10/24 1051 Cosigner Signature (if applicable): CC: Dr. Alexandre Yip MD; Dr. Nathanael Maradiaga, DO~ Signed [facility]04-02-2025 History and physical note Author Alexandre Yip [facility] Note Date/Time July 10, 2024 7:23 am [facility] Medical Records Department [address] [place] [address] History & Physical Exam 07/10/24 0723 MR#: [id number] Acct: [id number] Name: TERESA RAINEY Rep #:[id number] : 1950 73 From: Alexandre Yip MD PCP: Dr. Nathanael Maradiaga DO Status:[facility] Location: [place] [address] History and Physical Date of Admission: 07/10/24 MR#: [id number] Acct: [id number] Name: TERESA RAINEY Rep #: [id number] : 1950 Provider: Dr. Alexandre Yip MD Age/Sex: 73/M Location: [facility] Status: Signed Intake Vital Signs 04/09/2412:56 07/04/2512:32 Height 5 ft 6 in 5 ft 6 in Weight: 218 lb 3 oz BMI 35.2 Intake Visit Reasons: cervical spine Chief Complaint: cervical spine pre-op dos 07/10/2024 Accompanied by: Is patient in pain?: Yes Pain scale (1-10): 2 Allergies amoxicillin Allergy (Verified 07/04/24 13:33) HivesPenicillins Allergy (Verified 07/04/24 13:33) Hivestramadol Adverse Reaction (Severe, Verified 07/04/24 13:33) Other Medications ?Medication ?Instructions ?Recorded ?Confirmed ?Type simvastatin 10 mg tablet 10 mg PO QHS 07/29/16 07/04/24 History cyclobenzaprine 10 mg tablet 10 mg PO TID PRN muscle spasm 11/01/18 0 07/04/24 History omega-3 fatty acids 1,000 mg 1,000 mg PO DAILY 11/01/18 07/04/24 Hist ory capsule (Fish Oil Concentrate) propranolol 120 mg capsule,24 120 mg PO DAILY 11/01/18 07/04/24 Histor y hr,extended release multivitamin 1 ea PO DAILY 05/20/19 07/04/24 History naphazoline 0.31174 %-pheniramine 2 drp OP PRN PRN Allergies 05/20/1906/09 History 0.315 % eye drops diphenhydramine HCl 25 mg capsule 25 mg PO BID PRN Allergies 05/21/1906/09 History docusate sodium 100 mg capsule 100 mg PO QHS PRN Constipation 05/21/19 07/04/24 History glipizide 5 mg tablet 7.5 mg PO QHS 12/02/22 07/04/24 History oxycodone-acetaminophen 7.5 mg-325 1 tab PO Q6H PRN pain 12/02/22 07/04/24 History mg tablet finasteride 5 mg tablet 5 mg PO QDAY 04/09/24 07/04/24 History hydralazine 10 mg tablet 10 mg PO TID 04/09/24 07/04/24 History coenzyme Q10 100 mg capsule (Co 200 mg PO DAILY 06/26/24 07/04/24 Histor y Q-10) glipizide 5 mg tablet 5 mg PO DAILY 06/26/24 07/04/24 History losartan 100 mg tablet 100 mg PO DAILY 06/26/24 07/04/24 Histor y metformin 1,000 mg tablet 1,000 mg PO BID 06/26/24 07/04/24 Histor y vitamin B12 1,000 mcg-folic acid 1 tab sublingual DAILY 06/26/24 07/04/24 History 400 mcg sublingual tablet Have you fallen in the past year?: No PFSH Medical History History of steroid therapy Cluster headache Syncope History of stress test Cardiology follow-up encounter Wears hearing aid Wears glasses Cancer Rash Arthritis Back pain Dietary restriction Patient uses snuff History of pain when walking History of edema BPH (benign prostatic hyperplasia) Benign essential tremor Essential hypertension Hyperlipidemia Type 2 diabetes mellitus without complication Constipation Surgical History Hx of right cataract extraction Hx of left cataract extraction Hx of colonoscopy History of excision of lesion Hx of transurethral resection of prostate History of cystoscopy History of lithotripsy History of incision and drainage History of fusion of cervical spine History of tonsillectomy Family History Father Colon cancer CVA (cerebral vascular accident)Mother CancerSon Hypertension Social History Smoking Status: Never smoker alcohol intake: current substance use type: does not use caffeine: Yes Type: carbonated beverages Number of servings: 2 HPI cervical spine Details: This documentation accurately reflects the service provided and the decisions made by me, Dr. Alexandre Yip MD 07/04/24 1327. Part of today?s visit was documented by Willow Kline AT[employer], acting as scribe. TERESA RAINEY is a 73 year old M here today for pre-op for anterior cervical discfusion C4-5 and C5-6 DOS 07/10/2024. Patient rates his pain a 2/10 today. He did have a cervical spine injection with Dr. Hines on 05/14/2024. Patient states the pain just comes and goes and since the last injection the pain has decreased. Hestates he is unable to sleep on the left side anymore and if he does he gets a kink in his cervical spine. 05/17/24: TERESA RAINEY is a 73 year old M here today for cervical spine MRI review. He would like to discuss results and next steps. He did receive a steroid injection in his cervical spine on Monday by Dr. Hines. 04/09/24: TERESA RAINEY is a 73 year old M here today for lumbar spine pain. Pt. presents using a cane for ambulation. He states his low back pain is at the center and describes it as a constant, tired soreness and rates it 3/10. had been experiencing sciatic nerve pain in his left quad for about 3 months. He had a lumbar spine injection on 03-19-24 which is still effective. He was referred by Dr. Hines who has been giving him steroid injections in his cervical, thoracic spine and lumbar spine. He states the other injections have been effective temporarily. He also c/o thoracic pain on the right mid back. Says that he gets abdominal pain as well but has not discussed this with his family doctor. He describes it as a constant sharp pain and rates that 3/10 today. He is taking Tylenol and Ibuprofen as directed by Dr. Hines. He denies previous back injury,he reports a cervical fusion in 1989 d/t deterioration. He has done PT x 3 whichwas not helpful. No recent imaging. Says that he has an essential tremor that makes the handwriting difficult. History of diabetes with last a1c 6.7. Ortho Exam General General: Yes no acute distress Neurologic: Yes alert and Yes oriented x3 Spine SPINE TESTING CERVICAL THORACIC LUMBAR Musculoskeletal Strength 0=absent - 5=normal Details: Neurological exam of the upper and lower extremities shows 5x5 power. Normal sensations across all dermatomes. No hyperreflexia. No midline or paraspinal tenderness. Lima's mildly positive on right. Physical examination of the neck shows well healed incision. 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 Xrays show L4-5 anterolisthesis and disc height loss of L5-S1. L5-S1 is likely autofused or transitional anatomy. Also reviewed prior thoracic MRI from September 2022 which shows mild disc degeneration atmultiple noncontiguous levels with anterior cord indentation without any cord signal changes. Recently done cervical MRI shows severe cord compression at C5-6, and moderate central stenosis with cord indentation at C4-5. X-rays of cervical spine shows C6-7 noninstrumented fusion with degenerative osteophytes throughout the cervical spine. Again explained imaging findings in detail. His lumbar spine shows evidence of spondylolisthesis which may cause him to have neurogenic claudication from stenosis. However his balance deficits make it difficult for him to walk long distances and he cannot really assess for claudication distance because of this. He also had does not have significant axial low back pain at this time. We will defer lumbar MRI for now. His upper back pain may be related to multileveldisc degeneration, but since there is no significant cord compression, I would have him continue nonsurgical treatment for the thoracic pain. His cervical spine shows severe disc degeneration at the adjacent levels 2 levels above his prior fusion. C4-6 shows severe cord compression. Patient hassignificant myelopathy with worsening balance issues. Discussed natural historyof cervical myelopathy which is typically that of progression. Recommend surgical C4-6 ACDF in order to halt progression of myelopathy. All respites andalternatives were discussed. The risks include but are not limited to infection, bleeding, hematoma formation, need for further surgery, dysphagia, dysphonia, recurrent laryngeal nerve injury, persistent pain, persistent numbness and weakness, spinal cord injury, nerve root injury, DVT, pulm embolism, pneumonia, atelectasis, cardiopulmonary vent. Patient understands andagrees to proceed with surgery. Consent was signed. 07/10/24 0723 <Electronically signed by Alexandre Yip MD> Cosigner Signature (if applicable): CC: Dr. Alexandre Yip MD; Dr. Nathanael Maradiaga, DO~ Signed [facility] Work Phone: 1(817) 699-489604-02-2025 Consult note Author Jann yvette [facility] Note Date/Time July 10, 2024 6:47 am [facility] Medical Records Department [address] [place] [address] Pre-Anesthesia Evaluation 07/10/24 0646 MR#: [id number] Acct: [id number] Name: TERESA RAINEY Rep #:[id number] : 1950 73 From: Jann Winston MD PCP: Dr. Nathanael Maradiaga, DO Status:REG SDC Y Race: C Location: [place] [address] ASA Classification* ASA Classification ASA Classification: 2 Assessment & Plan Anesthesia* Anesthesia Assessment Anesthesia Assessment: Discussed sedation and/or anesthesia options, risks, benefits, and alternatives with patient/parents/legal guardian/POA. Questions invited. The patient/parents/legal guardian/POA seems to understand and agrees to proceedwith anesthesia plan. Reviewed the physical assessment, medical history, allergy history and patient home medications list prior to surgery/procedure/anesthetic and documented any changes. Performed airway and anesthesia risk assessments. Anesthesia Type Anesthesia Type: General Anesthesia Focused Assessment* Temperature: 97.4 F Pulse Rate: 73 Blood Pressure: 124/98 Respiratory Rate: 17 Pulse Ox: 100 Airway Assessment Mouth opens: >3 cm Mallampati Score: II Focused Labs Anesthesia Preop lab: CBC WBC 7.7 K/mm3 (4.4-11.0) 06/27/24 13:05 06/27/24 RBC 4.51 M/mm3 (4.6-6.2) L 06/27/24 13:05 06/27/24 Hgb 14.3 g/dL (13.0-16.5) 06/27/24 13:05 06/27/24 Hct 41.2 % (40-54) 06/27/24 13:05 06/27/24 Plt Count 253 K/mm3 (150-450) 06/27/24 13:05 06/27/24 CHEMISTRY Potassium 4.6 mmol/L (3.3-5.1) 06/27/24 13:05 06/27/24 Sodium 139 mmol/L (133-145) 06/27/24 13:05 06/27/24 Magnesium 2.8 mg/dL (1.5-2.2) H 06/27/24 13:05 06/27/24 BUN 25 mg/dL (4-19) H 06/27/24 13:05 06/27/24 Creatinine 1.10 mg/dL (0.70-1.20) 06/27/24 13:05 06/27/24 Glucose 243 mg/dL (70-99) H 06/27/24 13:05 06/27/24 POC Glucose 117 mg/dL (74-106) H 12/09/22 06:22 12/09/22 TSH 4.37 uIU/mL (0.358-3.74) H 09/01/23 10:44 08/09 08/01 COAG Pre-Assessment Diagnosis/Proposed Procedure Planned Operative Procedure(s): ANTERIOR CERVICAL DISC FUSION C4-5 C5-6 Anesthesia History 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 When Was Last Pacemaker Check QUESTION #4 FULL TEXT: You/Your Family Experience fever (hyperthermia) with Anesthesia Last Oral Intake Last Oral intake: Last Oral Intake NPO since 04:30 07/10/24 06:26 Meds taken in AM with sips of Yes 07/10/24 06:26 water? 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 - pathology supervisor: PONV - pathology supervisor Female No 06/26/24 09:09 HX of Motion Sickness No 06/26/24 09:09 HX of N/V After Surgery No 06/26/24 09:09 Non-Smoker No 06/26/24 09:09 Duration of Surgery greater Yes 06/26/24 09:09 than 60 minutes Number of Risk Factors 1 06/26/24 09:09 PONV Score Low Risk 06/26/24 09:09 Height & Weight Height & Weight: Anesthesia: Height & Weight Height 5 ft 6 in 07/10/24 06:26 Weight: 100 kg 07/10/24 06:26 Body Mass Index (BMI) 35.6 07/10/24 06:26 Respiratory Assessment Respiratory Assessment - pathology supervisor: Respiratory Tract Infection Hx - pathology supervisor Hx Respiratory Tract Infection No 06/26/24 09:09 STOP Sleep Apnea STOP Sleep Apnea - pathology supervisor: STOP Sleep Apnea - pathology supervisor Hx Hypertension Yes: CONTROLLED WITH MED 06/26/24 09:09 Hx Sleep Apnea No 06/26/24 09:09 CPAP No 03/12/24 14:13 BIPAP Do you snore loudly (louder Yes 06/26/24 09:09 than talking or can be heard Do you often feel tired/ Yes 06/26/24 09:09 fatigued/ sleepy during daytime? Has anyone observed you stop No 06/26/24 09:09 breathing during sleep? STOP Results Positive 06/26/24 09:09 QUESTION #5 FULL TEXT : Do you snore loudly (louder than talking or can be heard through closed doors)? 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 Specify any problems Hx of Preganancy in last 3 N/A 06/26/24 09:09 Months Nurse Filling Out Transfusion DSCHRIBER 06/26/24 09:09 & Questions: Date: 06/26/24 06/26/24 09:09 Time: 09:11 06/26/24 09:09 Patient unable to answer at this time (ie. confused, unrespo /Reproduction History /Reproductive History - pathology supervisor: /Reproductive Hx- pathology supervisor Hx Now No 06/26/24 09:09 Gestational Age (in weeks): EDC: Hx Hx Para Hx Section SAB No 06/26/24 09:09 Active Medications Active Medications: Current Medications Generic Name Dose Route Start Last Admin Trade Name Jodie PRN Reason Stop Dose Admin Acetaminophen 1,000 mg 07/10/24 07:30 07/10/24 06:32 Acetaminophen 500 Mg Tablet PO 07/10/24 07:31 1,000 mg X1 ONE Administration Dexamethasone Sodium Phosphate 8 mg 07/10/24 07:30 Dexamethasone 10 Mg/Ml Vial IV 07/10/24 07:31 X1 ONE Dexamethasone Sodium Phosphate 4 mg 07/10/24 07:30 Dexamethasone 4 Mg/Ml Vial IV 07/10/24 07:31 X1 ONE Clindamycin Phosphate 900 mg in 50 mls @ 75 mls/hr 07/10/24 07:30 Cleocin IV 07/10/24 08:09 PREOP ONE Tranexamic Acid 1,000 mg/ 110 mls @ 440 mls/hr 07/10/24 07:30 Sodium Chloride IV 07/10/24 07:44 X1 ONE Tranexamic Acid 1,000 mg/ 110 mls @ 440 mls/hr 07/10/24 07:30 Sodium Chloride IV 07/10/24 07:44 X1 ONE Magnesium Sulfate 1 gm/ 102 mls @ 408 mls/hr 07/10/24 07:30 07/10/24 06:32 Dextrose IV 07/10/24 07:44 408 mls/hr X1 ONE Administration Sodium Chloride 1,000 mls @ 15 mls/hr 07/10/24 05:55 07/10/24 06:32 IV 15 mls/hr .Q48H PAOLO Administration Insulin Human Lispro 1 - 6 unit 07/10/24 07:30 07/10/24 06:33 Insulin Lispro 100 Unit/Ml Insuln.Pen SC 07/10/24 18:00 3 units Q4H PRN PRN Administration BG>/= 180, SEE PROTOCOL Protocol PFSH Medical History History of steroid therapy Cluster headache Syncope History of stress test Cardiology follow-up encounter Wears hearing aid Wears glasses Cancer Rash Arthritis Back pain Dietary restriction Patient uses snuff History of pain when walking History of edema BPH (benign prostatic hyperplasia) Benign essential tremor Essential hypertension Hyperlipidemia Type 2 diabetes mellitus without complication Constipation Home Medications ?Medication ?Instructions ?Recorded ?Last Taken ?Type simvastatin 10 mg tablet 10 mg PO QHS 07/29/16 History cyclobenzaprine 10 mg tablet 10 mg PO TID PRN muscle s pasm 11/01/18 12/08/22 History omega-3 fatty acids 1,000 mg 1,000 mg PO DAILY 9 07/07/24 History capsule (Fish Oil Concentrate) propranolol 120 mg capsule,24 120 mg PO DAILY 11/01/18 07/10/24 History hr,extended release multivitamin 1 ea PO DAILY 05/20/1907/09 History naphazoline 0.67344 %-pheniramine 2 drp OP PRN PRN All ergies 05/20/19 12/08/22 History 0.315 % eye drops diphenhydramine HCl 25 mg capsule 25 mg PO BID PRN All ergies 05/21/19 Unknown History docusate sodium 100 mg capsule 100 mg PO QHS PRN Const ipation 05/21/19 12/08/22 History glipizide 5 mg tablet 7.5 mg PO QHS 12/02/2207/09 History oxycodone-acetaminophen 7.5 mg-325 1 tab PO Q6H PRN pa in 12/02/22 Unknown History mg tablet finasteride 5 mg tablet 5 mg PO QDAY 04/09/24 History hydralazine 10 mg tablet 10 mg PO BID 04/09/24 History coenzyme Q10 100 mg capsule (Co 200 mg PO DAILY 07/09/24 History Q-10) glipizide 5 mg tablet 5 mg PO DAILY 06/26/2407/09 History losartan 100 mg tablet 100 mg PO DAILY 06/26/2406/04 History metformin 1,000 mg tablet 1,000 mg PO BID 06/26/2405/04 History vitamin B12 1,000 mcg-folic acid 1 tab sublingual ANAND Y 06/26/24 07/09/24 History 400 mcg sublingual tablet Allergy/AdvReac Type Severity Reaction Status Date / Time amoxicillin Allergy Hives Verified 07/10/24 06:24 Penicillins Allergy Hives Verified 07/10/24 06:24 tramadol AdvReac Severe Other Verified 07/10/24 06:24 Family History Father Colon cancer CVA (cerebral vascular accident) Mother Cancer Son Hypertension Surgical History Hx of right cataract extraction Hx of left cataract extraction Hx of colonoscopy History of excision of lesion Hx of transurethral resection of prostate History of cystoscopy History of lithotripsy History of incision and drainage History of fusion of cervical spine History of tonsillectomy Social History Smoking Status: Never smoker alcohol intake: current substance use type: does not use caffeine: Yes Type: carbonated beverages Number of servings: 2 Review of Systems (Anesthesia) ROS Narrative System reviewed and no additional complaints, except as documented. 07/10/24 0647 <Electronically signed by Jann Winston MD > Date _ Jann Winston MD Cosigner Signature: Date CC: ~ Signed [facility] Work Phone: [phone] History and physical note [facility] Medical Records Department [address] [place] [address] History & Physical Exam 07/10/24 0723 MR#: [id number] Acct: [id number] Name: TERESA RAINEY Rep #:[id number] 2 : 1950 73 From: Alexandre Yip MD PCP: Dr. Nathanael Maradiaga, DO Status:[facility] Location: [place] [address] History and Physical Date of Admission: 07/10/24 MR#: [id number] Acct: [id number] Name: TERESA RAINEY Rep #: [id number] : 1950 Provider: Dr. Alexandre Yip MD Age/Sex: 73/M [place] [facility] Status: Signed Intake Vital Signs 04/09/2412:56 07/04/2512:32 Height 5 ft 6 in 5 ft 6 in Weight: 218 lb 3 oz BMI 35.2 Intake Visit Reasons: cervical spine Chief Complaint: cervical spine pre-op dos 07/10/2024 Accompanied by: Is patient in pain?: Yes Pain scale (1-10): 2 Allergies amoxicillin Allergy (Verified 07/04/24 13:33) HivesPenicillins Allergy (Verified 07/04/24 13:33) Hivestramadol Adverse Reaction (Severe, Verified 07/04/24 13:33) Other Medications ?Medication ?Instructions ?Recorded ?Confirmed ?Type simvastatin 10 mg tablet 10 mg PO QHS 07/29/16 07/04/24 History cyclobenzaprine 10 mg tablet 10 mg PO TID PRN muscle spasm 11/01/18 0 07/04/24 History omega-3 fatty acids 1,000 mg 1,000 mg PO DAILY 11/01/18 07/04/24 Hist ory capsule (Fish Oil Concentrate) propranolol 120 mg capsule,24 120 mg PO DAILY 11/01/18 07/04/24 Histor y hr,extended release multivitamin 1 ea PO DAILY 05/20/19 07/04/24 History naphazoline 0.54241 %-pheniramine 2 drp OP PRN PRN Allergies 05/20/1906/09 History 0.315 % eye drops diphenhydramine HCl 25 mg capsule 25 mg PO BID PRN Allergies 05/21/1906/09 History docusate sodium 100 mg capsule 100 mg PO QHS PRN Constipation 05/21/19 07/04/24 History glipizide 5 mg tablet 7.5 mg PO QHS 12/02/22 07/04/24 History oxycodone-acetaminophen 7.5 mg-325 1 tab PO Q6H PRN pain 12/02/22 07/04/24 History mg tablet finasteride 5 mg tablet 5 mg PO QDAY 04/09/24 07/04/24 History hydralazine 10 mg tablet 10 mg PO TID 04/09/24 07/04/24 History coenzyme Q10 100 mg capsule (Co 200 mg PO DAILY 06/26/24 07/04/24 Histor y Q-10) glipizide 5 mg tablet 5 mg PO DAILY 06/26/24 07/04/24 History losartan 100 mg tablet 100 mg PO DAILY 06/26/24 07/04/24 Histor y metformin 1,000 mg tablet 1,000 mg PO BID 06/26/24 07/04/24 Histor y vitamin B12 1,000 mcg-folic acid 1 tab sublingual DAILY 06/26/24 07/04/24 History 400 mcg sublingual tablet Have you fallen in the past year?: No PFSH Medical History History of steroid therapy Cluster headache Syncope History of stress test Cardiology follow-up encounter Wears hearing aid Wears glasses Cancer Rash Arthritis Back pain Dietary restriction Patient uses snuff History of pain when walking History of edema BPH (benign prostatic hyperplasia) Benign essential tremor Essential hypertension Hyperlipidemia Type 2 diabetes mellitus without complication Constipation Surgical History Hx of right cataract extraction Hx of left cataract extraction Hx of colonoscopy History of excision of lesion Hx of transurethral resection of prostate History of cystoscopy History of lithotripsy History of incision and drainage History of fusion of cervical spine History of tonsillectomy Family History Father Colon cancer CVA (cerebral vascular accident)Mother CancerSon Hypertension Social History Smoking Status: Never smoker alcohol intake: current substance use type: does not use caffeine: Yes Type: carbonated beverages Number of servings: 2 HPI cervical spine Details: This documentation accurately reflects the service provided and the decisions made by me, Dr. Alexandre Yip MD 07/04/24 9489. Part of today?s visit was documented by Willow Kline AT[employer], acting as scribe. TERESA RAINEY is a 73 year old M here today for pre-op for anterior cervical discfusion C4-5 and C5-6 DOS 07/10/2024. Patient rates his pain a 2/10 today. He did have a cervical spine injection with on 05/14/2024. Patient states the pain just comes and goes and since the last injection the pain has decreased. Hestates he is unable to sleep on the left side anymore and if he does he gets a kink in his cervical spine. 05/17/24: TERESA RAINEY is a 73 year old M here today for cervical spine MRI review. He would like to discuss results and next steps. He did receive a steroid injection in his cervical spine on Monday by Dr. Hines. 04/09/24: TERESA RAINEY is a 73 year old M here today for lumbar spine pain. Pt. presents using a cane for ambulation. He states his low back pain is at the center and describes it as a constant, tired soreness and rates it 3/10. had been experiencing sciatic nerve pain in his left quad for about 3 months. He had a lumbar spine injection on 03-19-24 which is still effective. He was referred by who has been giving him steroid injections in his cervical, thoracic spine and lumbar spine.He states the other injections have been effective temporarily. He also c/o thoracic pain on the right mid back. Says that he gets abdominal pain as well but has not discussed this with his family doctor. He describes it as a constant sharp pain and rates that 3/10 today. He is taking Tylenol and Ibuprofen as directed by Dr. Hines. He denies previous back injury,he reports a cervical fusion in 1989 d/t deterioration. He has done PT x 3 whichwas not helpful. No recent imaging. Says that he has an essential tremor that makes the handwriting difficult. History of diabetes with last a1c 6.7. Ortho Exam General General: Yes no acute distress Neurologic: Yes alert and Yes oriented x3 Spine SPINE TESTING CERVICAL THORACIC LUMBAR Musculoskeletal Strength 0=absent - 5=normal Details: Neurological exam of the upper and lower extremities shows 5x5 power. Normal sensations across all dermatomes. No hyperreflexia. No midline or paraspinal tenderness. Lima's mildly positive on right. Physical examination of the neck shows well healed incision. 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 Xrays show L4-5 anterolisthesis and disc height loss of L5-S1. L5-S1 is likely autofused or transitional anatomy. Also reviewed prior thoracic MRI from September 2022 which shows mild disc degeneration atmultiple noncontiguous levels with anterior cord indentation without any cord signal changes. Recently done cervical MRI shows severe cord compression at C5-6, and moderate central stenosis with cord indentation at C4-5. X-rays of cervical spine shows C6-7 noninstrumented fusion with degenerative osteophytes throughout the cervical spine. Again explained imaging findings in detail. His lumbar spine shows evidence of spondylolisthesis which may cause him to have neurogenic claudication from stenosis. However his balance deficits make it difficult for him to walk long distances and he cannot really assess for claudication distance because of this. He also had does not have significant axial low back pain at this time. We will defer lumbar MRI for now. His upper back pain may be related to multileveldisc degeneration, but since there is no significant cord compression, I would have him continue nonsurgical treatment for the thoracic pain. His cervical spine shows severe disc degeneration at the adjacent levels 2 levels above his prior fusion. C4-6 shows severe cord compression. Patient hassignificant myelopathy with worsening balance issues. Discussed natural historyof cervical myelopathy which is typically that of progression. Recommend surgical C4-6 ACDF in order to halt progression of myelopathy. All respites andalternatives were discussed. The risks include but are not limited to infection, bleeding, hematoma formation, needfor further surgery, dysphagia, dysphonia, recurrent laryngeal nerve injury, persistent pain, persistent numbness and weakness, spinal cord injury, nerve root injury, DVT, pulm embolism, pneumonia, atelectasis, cardiopulmonary vent. Patient understands andagrees to proceed with surgery. Consent wassigned. 07/10/24722 Cosigner Signature (if applicable): CC: Dr. Alexandre Yip MD; Dr. Nathanael Maradiaga DO~ Signed [facility]04-02-2025 [facility] Medical Records Department [address] [place] [address] History Physical Exam 07/10/24722 MR#: [id number] Acct: [id number] Name: RAINEYTERESASTEVEN JACOB Rep #: [id number] : 1950 73 From: Alexandre Yip MD PCP: Dr. Nathanael Maradiaga DO Status:REG [facility] [place] Location: [place] [address] History and Physical Date of Admission: 07/10/24 MR#: [id number] Acct: [id number] Name: TERESA RAINEY Rep #: [id number] : 1950 Provider: Dr. Alexandre Yip MD Age/Sex: 73/M [place] [facility] [email or web address] Status: Signed Intake Vital Signs 04/09/2412:56 07/04/2512:32 Height 5 ft 6 in 5 ft 6 in Weight: 218 lb 3 oz BMI 35.2 Intake Visit Reasons: cervical spine Chief Complaint: cervical spine pre-op dos 07/10/2024 Accompanied by: Is patient in pain?: Yes Pain scale (1-10): 2 Allergies amoxicillin Allergy (Verified 07/04/24 13:33) HivesPenicillins Allergy (Verified 07/04/24 13:33) Hivestramadol Adverse Reaction (Severe, Verified 07/04/24 13:33) Other Medications ???Medication ???Instructions ???Recorded ???Confirmed ???Type simvastatin 10 mg tablet 10 mg PO QHS 07/29/16 07/04/24 History cyclobenzaprine 10 mg tablet 10 mg PO TID PRN muscle spasm 11/01/18 07/04/24 Hi story omega-3 fatty acids 1,000 mg 1,000 mg PO DAILY 11/01/18 07/04/24 History capsule (Fish Oil Concentrate) propranolol 120 mg capsule,24 120 mg PO DAILY 11/01/18 07/04/24 History hr,extended release multivitamin 1 ea PO DAILY 05/20/19 07/04/24 History naphazoline 0.52288 %-pheniramine 2 drp OP PRN PRN Allergies 05/20/19 07/04/24 Histo ry 0.315 % eye drops diphenhydramine HCl 25 mg capsule 25 mg PO BID PRN Allergies 05/21/19 07/04/24 Histo ry docusate sodium 100 mg capsule 100 mg PO QHS PRN Constipation 05/21/19 07/04/24 H istory glipizide 5 mg tablet 7.5 mg PO QHS 12/02/22 07/04/24 History oxycodone-acetaminophen 7.5 mg-325 1 tab PO Q6H PRN pain 12/02/22 07/04/24 History mg tablet finasteride 5 mg tablet 5 mg PO QDAY 04/09/24 07/04/24 History hydralazine 10 mg tablet 10 mg PO TID 04/09/24 07/04/24 History coenzyme Q10 100 mg capsule (Co 200 mg PO DAILY 06/26/24 07/04/24 History Q-10) glipizide 5 mg tablet 5 mg PO DAILY 06/26/24 07/04/24 History losartan 100 mg tablet 100 mg PO DAILY 06/26/24 07/04/24 History metformin 1,000 mg tablet 1,000 mg PO BID 06/26/24 07/04/24 History vitamin B12 1,000 mcg-folic acid 1 tab sublingual DAILY 06/26/24 07/04/24 History 400 mcg sublingual tablet Have you fallen in the past year?: No PFSH Medical History History of steroid therapy Cluster headache Syncope History of stress test Cardiology follow-up encounter Wears hearing aid Wears glasses Cancer Rash Arthritis Back pain Dietary restriction Patient uses snuff History of pain when walking History of edema BPH (benign prostatic hyperplasia) Benign essential tremor Essential hypertension Hyperlipidemia Type 2 diabetes mellitus without complication Constipation Surgical History Hx of right cataract extraction Hx of left cataract extraction Hx of colonoscopy History of excision of lesion Hx of transurethral resection of prostate History of cystoscopy History of lithotripsy History of incision and drainage History of fusion of cervical spine History of tonsillectomy Family History Father Colon cancer CVA (cerebral vascular accident)Mother CancerSon Hypertension Social History Smoking Status: Never smoker alcohol intake: current substance use type: does not use caffeine: Yes Type: carbonated beverages Number of servings: 2 HPI cervical spine Details: This documentation accurately reflects the service provided and the decisions made by me, Dr. Alexandre Yip MD 07/04/24 7703. Part of today???s visit was documented by [employer], acting as scribe. TERESA RAINEY is a 73 year old M here today for pre-op for anterior cervical disc fusion C4-5 and C5- 6 DOS 07/10/2024. Patient rates his pain a 2/10 today. He did have a cervical spine injection with Dr. Hines on 05/14/2024. Patient states the pain just comes and goes and since the last injection the pain has decreased. He states he is unable to sleep on the left side anymore and if he does he gets a kink in his cervical spine. 05/17/24: TERESA RAINEY is a 73 year old M here today for cervical spine MRI review. He would like to discuss results and next steps. He did receive a steroid injection in his cervical spine on (more content not included)...[facility]04-02-2025 Consult note [facility] Medical Records Department [address] [place] [address] Pre-Anesthesia Evaluation 07/10/24 0646 MR#: [id number] Acct: [id number] Name: TERESA RAINEY Rep #:[id number] : 1950 73 From: Jann Winston MD PCP: Dr. Nathanael Maradiaga, DO Status:REG SDC Y Race: C Location: [place] [address] ASA Classification* ASA Classification ASA Classification: 2 Assessment & Plan Anesthesia* Anesthesia Assessment Anesthesia Assessment: Discussed sedation and/or anesthesia options, risks, benefits, and alternatives with patient/parents/legal guardian/POA. Questions invited. The patient/parents/legal guardian/POA seems to understand and agrees to proceedwith anesthesia plan. Reviewed the physical assessment, medical history, allergy history and patient home medications list prior to surgery/procedure/anesthetic and documented any changes. Performed airway and anesthesia risk assessments. Anesthesia Type Anesthesia Type: General Anesthesia Focused Assessment* Temperature: 97.4 F Pulse Rate: 73 Blood Pressure: 124/98 Respiratory Rate: 17 Pulse Ox: 100 Airway Assessment Mouth opens: >3 cm Mallampati Score: II Focused Labs Anesthesia Preop lab: CBC WBC 7.7 K/mm3 (4.4-11.0) 06/27/24 13:05 06/27/24 RBC 4.51 M/mm3 (4.6-6.2) L 06/27/24 13:05 06/27/24 Hgb 14.3 g/dL (13.0-16.5) 06/27/24 13:05 06/27/24 Hct 41.2 % (40-54) 06/27/24 13:05 06/27/24 Plt Count 253 K/mm3 (150-450) 06/27/24 13:05 06/27/24 CHEMISTRY Potassium 4.6 mmol/L (3.3-5.1) 06/27/24 13:05 06/27/24 Sodium 139 mmol/L (133-145) 06/27/24 13:05 06/27/24 Magnesium 2.8 mg/dL (1.5-2.2) H 06/27/24 13:05 06/27/24 BUN 25 mg/dL (4-19) H 06/27/24 13:05 06/27/24 Creatinine 1.10 mg/dL (0.70-1.20) 06/27/24 13:05 06/27/24 Glucose 243 mg/dL (70-99) H 06/27/24 13:05 06/27/24 POC Glucose 117 mg/dL (74-106) H 12/09/22 06:22 12/09/22 TSH 4.37 uIU/mL (0.358-3.74) H 09/01/23 10:44 08/09 08/01 COAG Pre-Assessment Diagnosis/Proposed Procedure Planned Operative Procedure(s): ANTERIOR CERVICAL DISC FUSION C4-5 C5-6 Anesthesia History 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 When Was Last Pacemaker Check QUESTION #4 FULL TEXT: You/Your Family Experience fever (hyperthermia) with Anesthesia Last Oral Intake Last Oral intake: Last Oral Intake NPO since 04:30 07/10/24 06:26 Meds taken in AM with sips of Yes 07/10/24 06:26 water? 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 - pathology supervisor: PONV - pathology supervisor Female No 06/26/24 09:09 HX of Motion Sickness No 06/26/24 09:09 HX of N/V After Surgery No 06/26/24 09:09 Non-Smoker No 06/26/24 09:09 Duration of Surgery greater Yes 06/26/24 09:09 than 60 minutes Number of Risk Factors 1 06/26/24 09:09 PONV Score Low Risk 06/26/24 09:09 Height & Weight Height & Weight: Anesthesia: Height & Weight Height 5 ft 6 in 07/10/24 06:26 Weight: 100 kg 07/10/24 06:26 Body Mass Index (BMI) 35.6 07/10/24 06:26 Respiratory Assessment Respiratory Assessment - pathology supervisor: Respiratory Tract Infection Hx - pathology supervisor Hx Respiratory Tract Infection No 06/26/24 09:09 STOP Sleep Apnea STOP Sleep Apnea - pathology supervisor: STOP Sleep Apnea - pathology supervisor Hx Hypertension Yes: CONTROLLED WITH MED 06/26/24 09:09 Hx Sleep Apnea No 06/26/24 09:09 CPAP No 03/12/24 14:13 BIPAP Do you snore loudly (louder Yes 06/26/24 09:09 than talking or can be heard Do you often feel tired/ Yes 06/26/24 09:09 fatigued/ sleepy during daytime? Has anyone observed you stop No 06/26/24 09:09 breathing during sleep? STOP Results Positive 06/26/24 09:09 QUESTION #5 FULL TEXT : Do you snore loudly (louder than talking or can be heard through closeddoors)? 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 Specify any problems Hx of Preganancy in last 3 N/A 06/26/24 09:09 Months Nurse Filling Out Transfusion DSCHRIBER 06/26/24 09:09 & Questions: Date: 06/26/24 06/26/24 09:09 Time: 09:11 06/26/24 09:09 Patient unable to answer at this time (ie. confused, unrespo /Reproduction History /Reproductive History - pathology supervisor: /Reproductive Hx- pathology supervisor Hx Now No 06/26/24 09:09 Gestational Age (in weeks): EDC: Hx Hx Para Hx Section SAB No 06/26/24 09:09 Active Medications Active Medications: Current Medications Generic Name Dose Route Start Last Admin Trade Name Freq PRN Reason Stop Dose Admin Acetaminophen 1,000 mg 07/10/24 07:30 07/10/24 06:32 Acetaminophen 500 Mg Tablet PO 07/10/24 07:31 1,000 mg X1 ONE Administration Dexamethasone Sodium Phosphate 8 mg 07/10/24 07:30 Dexamethasone 10 Mg/Ml Vial IV 07/10/24 07:31 X1 ONE Dexamethasone Sodium Phosphate 4 mg 07/10/24 07:30 Dexamethasone 4 Mg/Ml Vial IV 07/10/24 07:31 X1 ONE Clindamycin Phosphate 900 mg in 50 mls @ 75 mls/hr 07/10/24 07:30 Cleocin IV 07/10/24 08:09 PREOP ONE Tranexamic Acid 1,000 mg/ 110 mls @ 440 mls/hr 07/10/24 07:30 Sodium Chloride IV 07/10/24 07:44 X1 ONE Tranexamic Acid 1,000 mg/ 110 mls @ 440 mls/hr 07/10/24 07:30 Sodium Chloride IV 07/10/24 07:44 X1 ONE Magnesium Sulfate 1 gm/ 102 mls @ 408 mls/hr 07/10/24 07:30 07/10/24 06:32 Dextrose IV 07/10/24 07:44 408 mls/hr X1 ONE Administration Sodium Chloride 1,000 mls @ 15 mls/hr 07/10/24 05:55 07/10/24 06:32 IV 15 mls/hr .Q48H PAOLO Administration Insulin Human Lispro 1 - 6 unit 07/10/24 07:30 07/10/24 06:33 Insulin Lispro 100 Unit/Ml Insuln.Pen SC 07/10/24 18:00 3 units Q4H PRN PRN Administration BG>/= 180, SEE PROTOCOL Protocol PFSH Medical History History of steroid therapy Cluster headache Syncope History of stress test Cardiology follow-up encounter Wears hearing aid Wears glasses Cancer Rash Arthritis Back pain Dietary restriction Patient uses snuff History of pain when walking History of edema BPH (benign prostatic hyperplasia) Benign essential tremor Essential hypertension Hyperlipidemia Type 2 diabetes mellitus without complication Constipation Home Medications ?Medication ?Instructions ?Recorded ?Last Taken ?Type simvastatin 10 mg tablet 10 mg PO QHS 07/29/16 History cyclobenzaprine 10 mg tablet 10 mg PO TID PRN muscle s pasm 11/01/18 12/08/22 History omega-3 fatty acids 1,000 mg 1,000 mg PO DAILY 9 07/07/24 History capsule (Fish Oil Concentrate) propranolol 120 mg capsule,24 120 mg PO DAILY 11/01/18 07/10/24 History hr,extended release multivitamin 1 ea PO DAILY 05/20/1907/09 History naphazoline 0.73474 %-pheniramine 2 drp OP PRN PRN All ergies 05/20/19 12/08/22 History 0.315 % eye drops diphenhydramine HCl 25 mg capsule 25 mg PO BID PRN All ergies 05/21/19 Unknown History docusate sodium 100 mg capsule 100 mg PO QHS PRN Const ipation 05/21/19 12/08/22 History glipizide 5 mg tablet 7.5 mg PO QHS 12/02/2207/09 History oxycodone-acetaminophen 7.5 mg-325 1 tab PO Q6H PRN pa in 12/02/22 Unknown History mg tablet finasteride 5 mg tablet 5 mg PO QDAY 04/09/24 History hydralazine 10 mg tablet 10 mg PO BID 04/09/24 History coenzyme Q10 100 mg capsule (Co 200 mg PO DAILY 07/09/24 History Q-10) glipizide 5 mg tablet 5 mg PO DAILY 06/26/2407/09 History losartan 100 mg tablet 100 mg PO DAILY 06/26/2406/04 History metformin 1,000 mg tablet 1,000 mg PO BID 06/26/2405/04 History vitamin B12 1,000 mcg-folic acid 1 tab sublingual ANAND Y 06/26/24 07/09/24 History 400 mcg sublingual tablet Allergy/AdvReac Type Severity Reaction Status Date / Time amoxicillin Allergy Hives Verified 07/10/24 06:24 Penicillins Allergy Hives Verified 07/10/24 06:24 tramadol AdvReac Severe Other Verified 07/10/24 06:24 Family History Father Colon cancer CVA (cerebral vascular accident) Mother Cancer Son Hypertension Surgical History Hx of right cataract extraction Hx of left cataract extraction Hx of colonoscopy History of excision of lesion Hx of transurethral resection of prostate History of cystoscopy History of lithotripsy History of incision and drainage History of fusion of cervical spine History of tonsillectomy Social History Smoking Status: Never smoker alcohol intake: current substance use type: does not use caffeine: Yes Type: carbonated beverages Number of servings: 2 Review of Systems (Anesthesia) ROS Narrative System reviewed and no additional complaints, except as documented. 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 resolved July 10 10:42am Cervical myelopathy resolved July 10, 2024 10:42am Status post cervical spinal fusion acute July 25, 2024 1:36pm Status post cervical spinal fusion acute August 22, 2024 2 :24pm [facility] Work Phone: [phone] Evaluation note* Diagnosis Onset Date Resolution Status Admit Date Degeneration, intervertebral disc, thoracic acute July 04, 2024 1:26pm Spondylolisthesis, lumbar region acu te July 04, 2024 1:26pm 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 resolved July 04 1:26pm Cervical myelopathy resolved July 04, 2024 1:26pm Status post cervical spinal fusion acute July 10, 2024 10:42am 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 resolved July 10 10:42am Cervical myelopathy resolved July 10, 2024 10:42am Status post cervical spinal fusion acute July 25, 2024 1:36pm Status post cervical spinal fusion acute August 22, 2024 2 :24pm Status post cervical spinal fusion acute October 18, 2024 12:58pm [facility] Work Phone: 1(491) 902-301202-07-2025 Evaluation note* Diagnosis Onset Date Resolution Status Admit Date Degeneration, intervertebral disc, thoracic acute May 17 1:19pm Spondylolisthesis, lumbar region acute May 17 1:19pm 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 resolved May 17, 2024 1:19pm Cervical myelopathy resolved Febru macrina2024 1:19pm Degeneration, intervertebral disc, thoracic acute July 04, 2024 1:26pm Spondylolisthesis, lumbar region acute July 04, 2024 1:26pm 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 resolved July 04 1:26pm Cervical myelopathy resolved July 04, 2024 1:26pm Status post cervical spinal fusion acute July 10, 2024 10:42am 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 resolved July 10 10:42am Cervical myelopathy resolved July 10, 2024 10:42am Status post cervical spinal fusion acute July 25, 2024 1:36pm [facility] Work Phone: 1(370) 240-194412-31-2024 Evaluation note* Diagnosis Onset Date Resolution Status Admit Date 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 acute April 09, 2024 12:47pm Balance problem acute April 09, 2024 12:47pm Degeneration, intervertebral disc, thoracic acute April 09, 12:47pm Spondylolisthesis, lumbar region acute April 09 12:47pm 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 acute May 17, 2024 1:19pm Cervical myelopathy acute 2024 1:19pm Degeneration, intervertebral disc, thoracic acute May 17 1:19pm Spondylolisthesis, lumbar region acute May 17 1:19pm 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 acute July 04 1:26pm Cervical myelopathy acute July 04, 2024 1:26pm Degeneration, intervertebral disc, thoracic acute July 04, 2024 1:26pm Spondylolisthesis, lumbar region acute July 04, 2024 1:26pm 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 acute July 10 10:42am Cervical myelopathy acute July 10, 2024 10:42am Status post cervical spinal fusion acute July 10, 2024 10:42am [facility] Work Phone: 1(915) 608-349409-25-2023 Discharge summary Author Blas Copeland [facility] January 02, 2023 4:42pm Note Date/Time January 02, 2023 2:05pm [facility] Medical Records Department [address] [place] [address] Emergency Department Summary 01/02/23 MR#: [id number] Acct: [id number] Name: TERESA RAINEY Rep #:[id number] : 1950 72 From: Blas Copeland MD PCP: Dr. Nathanael Maradiaga, DO Status:REG ER Location: ED HPI History of Present Illness Chief Complaint: Weakness Informant: patient and spouse/S.O. Narrative Narrative: Presents with weakness. Patient had his first episode of this about 12 December. But it was thought that this might be related to being postoperative from kidney stone surgery as well as increasing meds. Work-up showed no acute process. Patient was feeling better and went home. He may have had a mild episode in between. He was seen by his doctor this but he was feeling well. Monday afternoon evening he started to feel weak again. He states he gets to the point he just cannot walk. Both his arms and legs seem to have no energy. Family states he also seems occasionally just mildly confused. They also noticed that his hand mouth coordination gets off a little bit. Patient's also had a little bit of urgency. He was told this urgency is likely due to enlarged prostate. It does not burn when he goes. He is not having incontinence. Family states that he is not walking now for about 2 or so days. He is just too weak. But he was not "wobbly" prior to this. He has no history of normal pressure hydrocephalus. Hehad an increase of his gabapentin recently but that was done after his first episode. Does not have a lateralizing findings. No headache. No vomiting. Heis eating and drinking. [facility] Medical History Arthritis Back pain Benign essential tremor BPH (benign prostatic hyperplasia) Cancer Cardiology follow-up encounter Constipation Dietary restriction Essential hypertension History of edema History of pain when walking History of steroid therapy Hyperlipidemia Patient uses snuff Rash Type 2 diabetes mellitus without complication Wears glasses Wears hearing aid Home Medications simvastatin 10 mg tablet 10 mg PO QHS 07/29/16 [History Last Taken 12/08/22] cyclobenzaprine 10 mg tablet 10 mg PO TID PRN Pain Or Fever 11/01/18 [History Last Taken 12/08/22] metformin 500 mg tablet 1,000 mg PO BIDCM 11/01/18 [History Last Taken 12/08/22] omega-3 fatty acids 1,000 mg capsule (Fish Oil Concentrate) 1,000 mg PO DAILY 11/01/18 [History Last Taken Unknown] propranolol 120 mg capsule,24 hr,extended release 120 mg PO DAILY 11/01/18 [History Last Taken 12/09/22] losartan 25 mg tablet 100 mg PO DAILY 05/20/19 [History Last Taken 12/09/22] multivitamin 1 ea PO DAILY 05/20/19 [History Last Taken Unknown] naphazoline 0.95293 %-pheniramine 0.315 % eye drops 2 drp OP PRN PRN Allergies 05/20/19 [History Last Taken 12/08/22] diphenhydramine HCl 25 mg capsule 25 mg PO BID PRN Allergies 05/21/19 [History Last Taken Unknown] docusate sodium 100 mg capsule 100 mg PO QHS PRN Constipation 05/21/19 [History Last Taken 12/08/22] amlodipine 5 mg tablet 5 mg PO DAILY 12/02/22 [History Last Taken 12/09/22] nqzojjc-lfwalghabxvuf-szskkmez 250 mg-250 mg-65 mg tablet (Excedrin Extra Strength) 1 tab PO Q4H PRN pain 12/02/22 [History Last Taken Unknown] glipizide 5 mg tablet 5 mg PO BID 12/02/22 [History Last Taken 12/08/22] inulin 2 gram chewable tablet (Prebiotic Fiber) 3 g PO BID 12/02/22 [History Last Taken 12/08/22] oxycodone-acetaminophen 7.5 mg-325 mg tablet 1 tab PO Q6H PRN pain 12/02/22 [History Last Taken Unknown] ciprofloxacin HCl 500 mg tablet (Cipro) 500 mg PO BID #10 tabs 12/09/22 [Rx Last Taken Unknown] phenazopyridine 100 mg tablet (Pyridium) 100 mg PO TID #20 tabs 12/09/22 [Rx Last Taken Unknown] tamsulosin 0.4 mg capsule (Flomax) 0.4 mg PO DAILY #20 caps 12/09/22 [Rx Last Taken Unknown] tramadol 50 mg tablet 50 mg PO TID PRN pain #20 tabs 12/09/22 [Rx Last Taken Unknown] Allergy/AdvReac Type Severity Reaction Status Date / Time amoxicillin Allergy Hives Verified 12/12/22 19:14 Penicillins Allergy Hives Verified 12/12/22 19:14 tramadol AdvReac Severe Other Verified 12/12/22 19:14 Family History Father Colon cancer CVA (cerebral vascular accident) Mother Cancer Son Hypertension Surgical History History of cystoscopy History of fusion of cervical spine History of incision and drainage History of lithotripsy History of tonsillectomy Hx of transurethral resection of prostate Social History Smoking Status: Never smoker alcohol intake: current substance use type: does not use caffeine: Yes Type: carbonated beverages Number of servings: 2 ROS ROS ED ROS Narrative A complete review of systems was performed and is negative except as documented in the history of present illness. Some specific details below. Constitutional: No recent fevers or chills. No rigors. Patient has not generallyfelt ill. Does feel generalized weak. EYE: No discharge, visual complaints, or pain. Full field cut. ENT: No difficulty swallowing. No swelling. No sinus pressure or pain. No nasal discharge. No change in hearing. No ear pain. CV: No chest pain, pressure or aching. No palpitations or irregular beats. Patient has not been presyncopal or syncopal. Just too weak to get up and walk. But he does not feel like he is going to pass out or lose consciousness. Respiratory: No trouble breathing. No cough. No wheezing. No sputum production. No pain with breathing. GI: No abdominal pain. No nausea vomiting diarrhea. No blood in stool. : No frequency dysuria or hematuria. Does have some urgency but this does notsound like it is new. Musculoskeletal: No recent trauma. No pains. No swelling. Skin: No rash. Nondiaphoretic. Neuro: No focal or lateralizing weakness or numbness. No difficulty with speaking. No difficulty understanding speech. No visual loss. Please see historyof present illness also. Endocrine: No polyuria or polydipsia. EXAM Physical Exam Narrative Exam Narrative: Is awake alert pleasant. He is not at all sleepy or lethargic. HEENT shows no trauma. Minimally dry mucous membranes. Neck is supple. Heart does sound regular. Peripheral pulses are good. Blood pressure is good. Lungs are clear bilaterally. No coughing. He is not hypoxic. Saturations are normal at 96% on room air. Abdomen is soft and nontender. Extremities show no notable rashes. Trace pretibial edema. Neurologic: He is awake he is alert and oriented x3. His [id number] is actually pretty good for me. Family states it is better now than it was yesterday. He has global weakness but no lateralizing findings. He has troublelifting either one of his legs off the bed even. I do not get any notable sensory change. Const Vital Signs: 01/02/23 13:02 01/02/23 13:11 Temperature 97.6 F L Temperature Source Temporal Pulse Rate 79 Respiratory Rate 21 H Respiratory Effort Normal Respiratory Pattern Normal Blood Pressure 135/60 H Blood Pressure Mean 85 Pulse Ox 96 Oxygen Delivery Method Room Air MDM MDM MDM Narrative Medical decision making narrative: My independent interpretation of the patient's CT of the head does show some atrophy. No acute bleed final reading showed chronic involutional changes. I looked at this compared to an MRI that was done in April. Although these are different studies I am not seeing any gross difference in size of the ventricles. See CT shows minimal anemia that would not be the cause of his symptoms. Patient's electrolytes are overall relatively normal. Sodium is minimally low at 134. Again this would not cause his symptoms. Glucose is slightly high at 258. Patient's lites are normal. No patient is urine is clean and normal. We will give the patient some IV fluids. We walked him and he actually did pretty well. He walked to his edge of the door and back and moved himself up [facility] bed. He is now walked to the bathroom and back. He feels well. His familywas surprised at how well he did. He was a little unstable but this is not uncommon for him. We are now thinking that some of this may be due to a. He hehas had some changes. I find out he is also on Flexeril. He is on gabapentin that was just doubled. He takes oxycodone. He has been taking Flexeril that was a as needed muscle relaxant. He is taking this to prevent muscle spasms. We discussed that may be cutting this back would be appropriate. If he is not improving with medication reduction he may need further work-up. He has a history of a lot of back problems but is not clearly displaying spinal stenosis is the source of this. No clear indication of normal pressure hydrocephalus. He would like to go home and they will follow-up as an outpatient. Lab Data Attestation: I reviewed the patient's lab results. Labs: Laboratory Results - last 24 hr 01/02/23 01/02/23 13:49 13:55 WBC 9.4 RBC 3.75 L Hgb 11.6 L Hct 34.6 L MCV 92.3 MCH 30.9 MCHC 33.5 RDW Std Deviation 40.7 RDW Coeff of Ethel 12.0 Plt Count 225 MPV 10.5 Immature Gran % (Auto) 0.500 Neut % (Auto) 70.8 H Lymph % (Auto) 17.4 L Pike % (Auto) 8.9 Eos % (Auto) 2.0 Baso % (Auto) 0.4 Absolute Neuts (auto) 6.7 Absolute Lymphs (auto) 1.64 Nucleated RBC % 0 Sodium 134 L Potassium 3.7 Chloride 100 Carbon Dioxide 25.0 Anion Gap 9 BUN 16 Creatinine 1.06 Estim Creat Clear Calc 56.84 Est GFR (MDRD) Af Amer 88 Est GFR (MDRD) Non-Af 73 BUN/Creatinine Ratio 15.1 Glucose 258 H Calcium 8.9 Total Bilirubin 1.00 AST 10 L ALT 22 Alkaline Phosphatase 61 Total Protein 7.1 Albumin 2.9 L Globulin 4.2 Albumin/Globulin Ratio 0.7 L Urine Color Yellow Urine Clarity Clear Urine pH 6.0 Ur Specific [place] 1.010 Urine Protein 30 H Urine Glucose (UA) 100 H Urine Ketones 15 H Urine Occult Blood 10 H Urine Nitrite Negative Urine Bilirubin Negative Urine Urobilinogen Normal Ur Leukocyte Esterase 100 H Urine RBC Not Reportable Urine WBC 5-10 SEEN Ur Squamous Epith Cells 0 SEEN Urine Bacteria 0 SEEN Urine Mucus 0 SEEN Radiography Diagnostic Testing: Clinical Impression(s) from Imaging Studies Brain CT 01/02/23 13:36 IMPRESSION: Chronic involutional changes of the brain. Electronically Signed: Rogelio Sprague MD at 14:19 EDT , EKG Initial EKG: Comments: My independent interpretation the patient's EKG shows a normal sinus rhythm with overall rate of 73. No ventricular ectopy. Diffuse nonspecific ST and T wave changes. CO interval, QRS duration and QTc are normal. Discharge Plan Triage Chief Complaint: Weakness ED Provider: Blas Copeland Dx/Rx/DC Orders Clinical Impression: Episodic weakness Instructions: ED Weakness (Uncertain Cause) Prescriptions: No Action propranolol 120 mg capsule,extended release 24 hr 120 mg PO DAILY omega-3 fatty acids [Fish Oil Concentrate] 1,000 mg capsule 1,000 mg PO DAILY cyclobenzaprine 10 mg tablet 10 mg PO TID PRN (Reason: Pain Or Fever) docusate sodium 100 mg capsule 100 mg PO QHS PRN (Reason: Constipation) simvastatin 10 MG tablet 10 mg PO QHS metformin 500 mg tablet 1,000 mg PO BIDCM multivitamin 1 EACH tablet 1 ea PO DAILY losartan 25 MG tablet 100 mg PO DAILY naphazoline-pheniramine 15 ML drops 2 drp OP PRN PRN (Reason: Allergies) diphenhydramine HCl 25 mg capsule 25 mg PO BID PRN (Reason: Allergies) oxycodone-acetaminophen 7.5-325 mg tablet 1 tab PO Q6H PRN (Reason: pain) Patient Comments: 1 TABLET BY MOUTH EVERY 6 HOURS NEEDED Excedrin Extra Strength 250-250-65 mg tablet 1 tab PO Q4H PRN (Reason: pain) Prebiotic Fiber 2 gram tablet,chewable 3 g PO BID amlodipine 5 mg tablet 5 mg PO DAILY glipizide 5 mg tablet 5 mg PO BID ciprofloxacin HCl [Cipro] 500 mg tablet 500 mg PO BID Qty: 10 0RF tamsulosin [Flomax] 0.4 mg capsule 0.4 mg PO DAILY Qty: 20 0RF phenazopyridine [Pyridium] 100 mg tablet 100 mg PO TID Qty: 20 0RF tramadol 50 mg tablet 50 mg PO TID PRN (Reason: pain) Qty: 20 0RF Primary Care Provider: Nathanael Maradiaga Referrals: Nathanael Maradiaga DO [Primary Care Provider] - 1 Week if not improving Activity Restrictions/Additional Instructions: Use individual reduction of medications and recording as we discussed. Disposition Disposition: Home, Self Care What to do if you have Problems For any increased pain, shortness of breath, bleeding, nausea or vomiting, chestpain, or any unexpected problems, contact your Primary Care Provider. Call [facility] ([phone]) or report to the closest Emergency Room. Call 911 if necessary. 01/02/23 3042 <Electronically signed by Blas Copeland MD> Cosigner Signature (if applicable): CC: Dr. Nathanael Maradiaga DO ~ Signed [facility] Work Phone: [phone] 660-381009-01-2023 Discharge summary Author Duke Trinh [facility] December 09, 2022 9:15am Note Date/Time December 09, 2022 9:15am [facility] Medical Records Department [address] [place] [address] Instructions for Home/Discharge Instructions 12/09/22 0915 MR#: [id number] Acct: [id number] Name: TERESA RAINEY Rep #:[id number] : 1950 72 From: Duke Trinh MD PCP: Dr. Nathanael Maradiaga DO Status:[facility] [place] Discharge Instructions Diet Discharge Diet: No restrictions Activity Discharge Activity: Return to Normal Activity and May Not Drive (while taking narcotic pain medications.) Follow Up Care Please Follow Up With: Duke Trinh MD When: Call [phone] for an appointment Test Results: Test results from this visit will be discussed in further detail at your follow- up appointment, if applicable. Discharge Plan Admission Primary Reason for Your Visit: right ,kidney stone Attending Provider: Duke Trinh Primary Care Provider: Nathanael Maradiaga Discharge Orders/Prescriptions Prescriptions: New ciprofloxacin HCl [Cipro] 500 mg tablet 500 mg PO BID Qty: 10 0RF tamsulosin [Flomax] 0.4 mg capsule 0.4 mg PO DAILY Qty: 20 0RF phenazopyridine [Pyridium] 100 mg tablet 100 mg PO TID Qty: 20 0RF tramadol 50 mg tablet 50 mg PO TID PRN (Reason: pain) Qty: 20 0RF Continued propranolol 120 mg capsule,extended release 24 hr 120 mg PO DAILY omega-3 fatty acids [Fish Oil Concentrate] 1,000 mg capsule 1,000 mg PO DAILY cyclobenzaprine 10 mg tablet 10 mg PO TID PRN (Reason: Pain Or Fever) docusate sodium 100 mg capsule 100 mg PO QHS PRN (Reason: Constipation) simvastatin 10 MG tablet 10 mg PO QHS metformin 500 mg tablet 1,000 mg PO BIDCM multivitamin 1 EACH tablet 1 ea PO DAILY losartan 25 MG tablet 100 mg PO DAILY naphazoline-pheniramine 15 ML drops 2 drp OP PRN PRN (Reason: Allergies) diphenhydramine HCl 25 mg capsule 25 mg PO BID PRN (Reason: Allergies) oxycodone-acetaminophen 7.5-325 mg tablet 1 tab PO Q6H PRN (Reason: pain) Patient Comments: 1 TABLET BY MOUTH EVERY 6 HOURS NEEDED cyanocobalamin-liver extract Tablet 1 tab PO DAILY Excedrin Extra Strength 250-250-65 mg tablet 1 tab PO Q4H PRN (Reason: pain) Prebiotic Fiber 2 gram tablet,chewable 3 g PO BID amlodipine 5 mg tablet 5 mg PO DAILY glipizide 5 mg tablet 5 mg PO BID Other Ambulatory Orders: Abdomen Single View (Routine) Timeframe: [id number] Facility: [facility] - Location: [facility] Ordered By: Dr. Duke Trinh Referrals / Follow Up: Duke Trinh MD [Med Staff - Active Staff] - Nathanael Maradiaga DO [Primary Care Provider] - Disposition Disposition (needs filled in before D/C Order can be placed): Home, Self Care 12/09/2215<Electronically signed by Duke Trinh MD>Duke Trinh MD CC: Dr. Nathanael Maradiaga, ~ Signed [facility] Work Phone: [phone] 634-411909-01-2023 History and physical note Author Duke Trinh [facility] December 09, 2022 9:15am Note Date/Time December 09, 2022 9:15am [facility] Medical Records Department [address] [place] [id number] History & Physical Exam 12/09/22913 MR#: [id number] Acct: [id number] Name: TERESA RAINEY Rep #:[id number] : 1950 72 From: Duke Trinh MD PCP: Dr. Nathanael Maradiaga DO Status:[facility] Location: [place] [id number] HPI - General General Date of Service: 12/09/22 Chief Complaint: Right multiple large kidney stones HPI Narrative TERESA RAINEY, is a 72 M who presents for a right ureteroscopy laser lithotripsy of stones and possible percutaneous approach. [facility] Medical History (Updated 12/02/22 @ 10:33 by Karoline Redmond) Arthritis Back pain Benign essential tremor BPH (benign prostatic hyperplasia) Cancer Cardiology follow-up encounter Constipation Dietary restriction Essential hypertension History of edema History of pain when walking History of steroid therapy Hyperlipidemia Patient uses snuff Rash Type 2 diabetes mellitus without complication Wears glasses Wears hearing aid Home Medications simvastatin 10 mg tablet 10 mg PO QHS 07/29/16 [History Last Taken 12/08/22] cyclobenzaprine 10 mg tablet 10 mg PO TID PRN Pain Or Fever 11/01/18 [History Last Taken 12/08/22] metformin 500 mg tablet 1,000 mg PO BIDCM 11/01/18 [History Last Taken 12/08/22] omega-3 fatty acids 1,000 mg capsule (Fish Oil Concentrate) 1,000 mg PO DAILY 11/01/18 [History Last Taken Unknown] propranolol 120 mg capsule,24 hr,extended release 120 mg PO DAILY 11/01/18 [History Last Taken 12/09/22] losartan 25 mg tablet 100 mg PO DAILY 05/20/19 [History Last Taken 12/09/22] multivitamin 1 ea PO DAILY 05/20/19 [History Last Taken Unknown] naphazoline 0.15747 %-pheniramine 0.315 % eye drops 2 drp OP PRN PRN Allergies 05/20/19 [History Last Taken 12/08/22] diphenhydramine HCl 25 mg capsule 25 mg PO BID PRN Allergies 05/21/19 [History Last Taken Unknown] docusate sodium 100 mg capsule 100 mg PO QHS PRN Constipation 05/21/19 [History Last Taken 12/08/22] amlodipine 5 mg tablet 5 mg PO DAILY 12/02/22 [History Last Taken 12/09/22] nhkyhoh-gkgsucjsrumjw-gvinrsuw 250 mg-250 mg-65 mg tablet (Excedrin Extra Strength) 1 tab PO Q4H PRN pain 12/02/22 [History Last Taken Unknown] cyanocobalamin-liver extract tablet 1 tab PO DAILY 12/02/22 [History Last Taken Unknown] glipizide 5 mg tablet 5 mg PO BID 12/02/22 [History Last Taken 12/08/22] inulin 2 gram chewable tablet (Prebiotic Fiber) 3 g PO BID 12/02/22 [History Last Taken 12/08/22] oxycodone-acetaminophen 7.5 mg-325 mg tablet 1 tab PO Q6H PRN pain 12/02/22 [History Last Taken Unknown] ciprofloxacin HCl 500 mg tablet (Cipro) 500 mg PO BID #10 tabs 12/09/22 [Rx Last Taken Unknown] phenazopyridine 100 mg tablet (Pyridium) 100 mg PO TID #20 tabs 12/09/22 [Rx Last Taken Unknown] tamsulosin 0.4 mg capsule (Flomax) 0.4 mg PO DAILY #20 caps 12/09/22 [Rx Last Taken Unknown] tramadol 50 mg tablet 50 mg PO TID PRN pain #20 tabs 12/09/22 [Rx Last Taken Unknown] Allergy/AdvReac Type Severity Reaction Status Date / Time amoxicillin Allergy Hives Verified 12/09/22 06:18 Penicillins Allergy Hives Verified 12/09/22 06:18 Family History Father Colon cancer CVA (cerebral vascular accident) Mother Cancer Son Hypertension Surgical History (Updated 12/02/22 @ 10:28 by Karoline Redmond) History of cystoscopy History of fusion of cervical spine History of incision and drainage History of lithotripsy History of tonsillectomy Hx of transurethral resection of prostate Social History (Updated 05/22/19 @ 14:[address] Too Garcia MD) Smoking Status: Current every day smoker tobacco type: smokeless tobacco alcohol intake: current substance use type: does not use caffeine: Yes Type: carbonated beverages Number of servings: 2 Vital Signs Vital Signs Vital Signs: 12/09/22 06:21 12/09/22 06:21 Temperature 97 F L Temperature Source Temporal Pulse Rate 69 Respiratory Rate 16 Respiratory Pattern Normal Blood Pressure 136/69 H Blood Pressure Mean 91 Blood Pressure Source Monitor Blood Pressure Position Semi-Fowlers Blood Pressure Location Right Arm Pulse Ox 97 Oxygen Delivery Method Room Air Weight Weight: 96.3 kg Body Mass Index (BMI) 34.2 Results Lab / Micro Data Labs: Laboratory Results - last 24 hr 12/09/22 06:22: POC Glucose 117 H Radiology Impression Abdomen/Pelvis CT 12/09/22 05:30 IMPRESSION: 1. Bilateral nephrolithiasis. The largest is a large elongated stone in the collapsed right renal pelvis without obstruction, proximal to UPJ with the patient in supine position. This is new from prior exam. No prakash hydronephrosis or ureter or bladder stone. 2. Prostatomegaly. 3. Mild fat-containing left inguinal hernia. 4. Mild distention of the appendix with dense inspissated material in most of the lumen. Small tapering tip and small origin and proximal appendix. No convincing evidence of appendicitis. 5. Mild distal colon and diverticulosis. 6. Moderate stool in most of the right colon and proximal half of the transverse colon. Electronically Signed: Starla Yeager MD at 6:09 EDT , 12/09/22914 <Electronically signed by Duke Trinh MD> Cosigner Signature (if applicable): CC: Dr. Duke Trinh MD; Dr. Nathanael Maradiaga DO~ Signed [facility] Work Phone: 1([phone]) 393-626309-01-2023 Procedure [facility] 03-16-2022 History of Present illness Narrative* Lucasjoseph Aaron, - 03/16/2022 9:23 AM EST Images from the original note were not included. 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 male who presents for preoperative medical risk stratification prior to eye surgery at the request of Dr. Minh Pinto MD. His medical conditions include: HTN- slightly elevated today on current medication. HLD- stable on statin. T2DM- reports last A1c was 8.2, uncontrolled on PO medications. Type of anesthesia for upcoming surgery: Sedation Anesthesia History: Yes, with complications: excess sedation with versed in the past, so has subsequently required lower doses. Patient Active Problem List Diagnosis Essential hypertension Mixed hyperlipidemia Diabetes mellitus (HCC) Past Medical History: Diagnosis Date Diabetes mellitus (HCC) Hyperlipidemia Hypertension Past Surgical History: Procedure Laterality Date TONSILLECTOMY Allergies Allergen Reactions Penicillins Hives Amoxicillin Unknown Review of Systems Constitutional: Negative for fever. Respiratory: Negative for cough, shortness of breath and wheezing. Cardiovascular: Negative for chest pain and palpitations. Neurological: Negative for dizziness, seizures and headaches. Social History Tobacco Use Smoking status: Never Smokeless tobacco: Never Substance Use Topics Alcohol use: Not Currently Social History Substance and Sexual Activity Drug Use Not on file Marital Status: No family history on file. Current Outpatient Medications Medication Sig Dispense Refill cyclobenzaprine (FLEXERIL) 10 MG tablet Take 1 Unspecified by mouth . losartan (COZAAR) 100 MG tablet metFORMIN (GLUCOPHAGE) 1000 MG tablet nortriptyline (PAMELOR) 10 MG capsule TAKE 1 CAPSULE BY MOUTH AT BEDTIME FOR MIGRAINE simvastatin (ZOCOR) 10 MG tablet Take 1 (one) tablet (10 mg total) by mouth every night at bedtime . No current facility-administered medications for this visit. PHYSICAL Patient Name: Teresa Rainey Age: 71 y.o. BP (!) 145/84 Pulse 70 Temp 98.2 F (36.8 C) (Infrared) Resp 16 Ht 5' 6" Wt 94.3 kg (208 lb) SpO2 98% BMI 33.57 kg/m Physical Exam Constitutional: General: He is not in acute distress. HENT: Head: Normocephalic and atraumatic. Cardiovascular: Rate and Rhythm: Normal rate and regular rhythm. Pulmonary: Effort: Pulmonary effort is normal. Breath sounds: Normal breath sounds. Neurological: Mental Status: He is alert. Gait: Gait normal. Psychiatric: Mood and Affect: Mood normal. EKG Results: EKG today reviewed and interpreted by me, results on EKG documentation (attached) Results for orders placed or performed in visit on 03/16/22 POC Glucose by reagent strip (Finger Stick) Result Value Ref Range Glucose 176 (A) 65 - 99 mg/dL ECG 12 Lead Result Value Ref Range Atrial Rate Ventricular Rate P-R Interval QRS Duration Q-T Interval Q-T Interval (corrected) QTC Calculation (Bezet) P [place] R [place] T [place] Reviewed outside labs/imaging/notes: None IMPRESSION/PLAN Teresa Rainey is a 71 y.o. male who presents for preoperative medical risk stratification prior to eye surgery at the request of Dr. Minh Pinto MD. Risk factors for surgery include: HTN- slightly elevated today on current medication. HLD- stable on statin. T2DM- reports last A1c was 8.2, uncontrolled on PO medications. Preoperative recommendations: I reviewed the patient's pertinent medical history and medications. Questions regarding his medical issues were answered and discussed. No additional recommendations or changes are warranted prior to his scheduled surgery. Postoperative recommendations: Patient was instructed to continue his current medical regimen following surgery, unless instructed otherwise by his surgeon. The patient will follow up with his PCP for any additional medical concerns. Risk Assessment: Pt would be considered at a Low risk of morbidity from additional treatment/surgery. This patient has an acceptable cardiac risk for the intended procedure. Thank you for the opportunity to evaluate your patient. Please feel free to contact our office withany questions. A copy of this evaluation was provided to the referring physician. Lucas Aaron DO documented in this [id number] History of Present illness Narrative* Jerri Clemens PA-C - 09/27/2021 1:53 PM EDT FOLLOW UP VISIT - ENDOSCOPY NAME: Teresa Rainey CLINIC NO.: [id number] DATE OF SERVICE: 09/27/2021 : 1950 REFERRING PHYSICIAN: Nathanael Maradiaga DO Teresa is a patient I am following for family history of colon cancer and personal history of colonpolyps. Dr. Gerber performed lower endoscopy on 09/09/21. The patient was found to have five medium-sized polyps in the descending and transverse colon which were resected, and was also noted to have d iverticulosis and internal hemorrhoids. Pathology demonstrated: FINAL DIAGNOSIS A. Colon, transverse, polyp x2, polypectomy: - Fragments of tubular adenoma. B. Colon, descending, polyp x3, polypectomy: - Fragments of tubular adenoma. The patient notes no complaints since the procedure. VITALS: Blood pressure 150/90, pulse 73, temperature 36.5 C (97.7 F), height 167.6 cm (5' 6"), weight 98.9 kg (218 lb), SpO2 98 %. General: patient is alert, cooperative, pleasant and in no acute distress On examination, the abdomen is benign. Assessment IMPRESSION: s/p colonoscopy with polypectomy-multiple tubular adenomas PLAN: The operative findings and pathology report were reviewed with the patient, and the patient has hadthe opportunity to ask questions and have questions answered. If the patient notes any problems or changes in bowel function, the patient should contact me immediately. Otherwise I recommend follow up endoscopy in 3 years. HM updated and recall letter generated. Discussed need to follow up with PCP regarding elevated BP readings Patient verbalized understanding of all above and agreed with the plan Diagnoses: (D36.9) Tubular adenoma (primary encounter diagnosis) (Z80.0) Family history of colon cancer (Z86.010) History of colonic polyps I spent a total of 24 minutes on the date of the service which included preparing to see the patient, [id number] patient care, completing clinical documentation, counseling and educating the patient/family/caregiver, independently interpreting results (not separately reported) and communicating results to the patient/family/caregiver. Jerri Clemens PA-C documented in this encounterBet[facility]06-20-[facility]22 Instructions* Patient Instructions* Jerri Clemens PA-C - 09/27/2021 1:51 PM EDT The following instructions are important for you related to your office visit today with the [facility] General Surgeons. INSTRUCTIONS FOLLOWING A POLYP FOUND AT COLONOSCOPY You were found to have adenomatous colon polyps. I recommend you undergo repeat endoscopy in 3 years. If you note bleeding, change in bowel habits, or other suspicious colon related symptoms before that time, those symptoms should be evaluated as necessary. If you have any difficulties or concerns, you should contact our office immediately. If you note any additional difficulties, questions, or concerns, you should contact our office immediately @ [phone] and ask to be transferred to the General Surgery department. documented in this encounterBet[facility]06-[facility]22 Nurse Note* Meme Brower RN - 09/09/2021 9:46 AM EDT Per verbal suggestion from Dr. Gerber to Mrs. Rainey (spouse), patient will schedule appointment with PCP to review blood pressure readings, and evaluate treatment. Mrs Rainey was given a copy of patient's vitals from admission to discharge to present to PCP. Patient was asymptomatic throughout recovery phase. Meme Brower RN * Meme Brower RN - 09/09/2021 9:30 AM EDT Abdomen remains soft. Patient continues to pass flatus. Denies complaints. Meme Brower RN * Meme Brower RN - 09/09/2021 8:[address] Gerber notified of patient's elevated blood pressure. Advised to continue monitoring vitals and notify doctor with significant changes. Meme Brower RN * Meme Brower RN - 09/09/2021 8:41 AM EDT Arrived in phase II via cart. Left lateral position. Sedated, but responds to verbal stimuli. Colornormal; skin warm and dry. Respirations wnl and unlabored. Abdomen soft and with + bowel sounds in quads X 4. Patient resting comfortably. Family at bedside. Dr. Gerber at bedside to review procedure and recommendations. Meme Brower RN documented in this encounterBethes[facility]06-02-2022 History and physical note * Minh Gerber MD - 09/09/2021 8:00 AM EDT Images from the original note were not included. HISTORY AND PHYSICAL Teresa Rainey 1950 REFERRING PHYSICIAN: Nathanael Maradiaga DO CHIEF COMPLAINT: Consult (colonoscopy) HPI: The patient is a 70 year old male referred for endoscopy. Teresa notes no colon complaints. Patient denies any change in bowel habits, weight changes, blood in stools, black tarry stools or abdominal pain. NOTES family history of colon cancer as well as personal history of polyps. The patient notes no upper GI complaints. Teresa has undergone prior endoscopy. Most recent colonoscopy 05/26/[address] Gerber with no concerning findings noted, repeat colonoscopy recommended in 5 years. Patient denies chest pain, shortness of breath or recent hospitalizations. Denies problems with sedation in the past. PAST MEDICAL HISTORY PAST MEDICAL HISTORY Diagnosis Date Allergic rhinitis, cause unspecified Cervical disc disorder Diabetes (HCC) Family history of malignant neoplasm of gastrointestinal tract Kidney stones Mixed hyperlipidemia Other and unspecified hyperlipidemia Unspecified constipation Unspecified essential hypertension PAST SURGICAL HISTORY PAST SURGICAL HISTORY Procedure Laterality Date COLONOSCOPY FLX DX W/COLLJ SPEC WHEN PFRMD 11/27/08 COLONOSCOPY FLX DX W/COLLJ SPEC WHEN PFRMD 05/26/14 Repeat 2020 CYSTOSCOPY,URETEROSCOPY,LITHOTRIPSY 2008 LITHOTRIPSY XTRCORP SHOCK WAVE 2008 Lithotripsy X2 PAST SURGICAL HISTORY OF 1988 CERVICAL DISECTOMY TONSILLECTOMY PRIMARY/SECONDARY <AGE 12 1969 Tonsillectomy CURRENT MEDICATIONS Current Outpatient Medications Medication Sig propranolol ER (INDERAL LA) 120 mg 24 hr capsule metFORMIN (GLUCOPHAGE) 1,000 mg tablet losartan (COZAAR) 25 mg tablet mecobalamin (B12 ACTIVE ORAL) Take by mouth. multivitamin (MULTI-DAY ORAL) Take by mouth. simvastatin (ZOCOR) 10 mg tablet Take 10 mg by mouth daily at bedtime. diphenhydrAMINE (BENADRYL ALLERGY) 25 mg tablet Take 25 mg by mouth every 6 hours as needed. Fish Oil-[place]-3 Fatty Acids (FISH OIL) 340-1,000 mg cap Take 1 capsule by mouth three times daily. potassium citrate (UROCIT-K 10) 10 mEq (1,080 mg) TbER Take by mouth twice daily. No current facility-administered medications for this visit. ALLERGIES: Penicillins PERSONAL HISTORY: SOCIAL HISTORY Social History Tobacco Use Smoking status: Never Smoker Smokeless tobacco: Current User Types: Snuff, Chew Vaping Use Vaping Use: Never used Substance Use Topics Alcohol use: No Drug use: No FAMILY HISTORY: FAMILY HISTORY FAMILY HISTORY Problem Relation Age of Onset Colon Cancer Father Cancer Mother Colon Cancer Paternal Aunt Colon Cancer Paternal Uncle other (CROHN'S [Other]) Other REVIEW OF SYMPTOMS: The review of systems data was entered by the nurse and reviewed by id Nursing Notes: Ericka Mcknight RN 08/03/2021 1:50 PM Signed REVIEW OF SYSTEMS: General: The patient denies fatigue, denies weight loss, denies weight gain, denies feeling hot, and denies feelings of cold. Eyes: The patient denies glaucoma, denies eye injury/surgery, wears glasses or contacts. Ear/Nose/Throat: The patient NOTES allergies, denies hayfever, denies ear infections, and denies bloody noses. Cardiovascular: The patient denies chest pain, denies heart disease, denies high blood pressure,denies cardiac stent, denies prior heart attack, denies irregular heart beat, denies high cholesterol, denies poor circulation, denies heart failure, other cardiac issues, denies claudication, denies cold feet, denies peripheral arterial stent. Respiratory: The patient denies tuberculosis, denies pneumonia, denies frequent cough, denies pulmonary embolism, denies shortness of breath, and denies coughing up blood. Gastrointestinal: The patient denies difficulty swallowing, denies acid reflux, denies ulcers, denies vomiting, denies jaundice/hepatitis, denies gallbladder problems, denies black or tarry stools, denies hemorrhoids, denies bleeding from rectum, denies diverticulitis, NOTES constipation, NOTES diarrhea, denies loss of stool control, and denies hernias. Kidney/Bladder: The patient NOTES kidney stones, denies urine infections, and denies bloody urine. Skin: The patient NOTES a history of skin cancer, denies bleeding/changing moles, and denies a history of skin rash. Neurologic: The patient denies a history of epilepsy/convulsions, denies headaches, NOTES head/spinal injuries, and denies stroke/TIA. Psychiatric: The patient denies psychiatric medications, denies depression, and denies voices, denies substance abuse. Endocrine: The patient denies thyroid disorders, NOTESs diabetes, and denies hormonal problems. Hematologic: The patient denies a history of bruising, denies bleeding, and denies anemia, denies blood clots. Infections: The patient NOTES a history of measles and mumps, denies rheumatic fever, and denies sexually transmitted diseases. Musculoskeletal: The patient NOTES back pain/injury, NOTES back problems, denies sciatica, denies knee/foot trouble, NOTES arthritis, or denies gout. When was patient's last Mammogram screening? Last Colonoscopy: 2014 Ericka Mcknight RN I have confirmed and edited as necessary, the PFSH and ROS obtained by others. Jerri Clemens PA-C PHYSICAL EXAMINATION: General: The patient is 70 year old male, well nourished, well hydrated in no acute distress. The patient is oriented to time, place, and person. VITALS: Blood pressure 123/84, pulse 75, temperature 36.3 C (97.4 F), height 167.6 cm (5' 6"), weight 98.9 kg (218 lb), SpO2 96 %. Body mass index is 35.19 kg/m . HEENT: Normal cephalic, ataumatic, pupils are equally round, sclera are anicteric, mucous membranesare moist, oropharynx is clear. Neck has no masses, asymmetry or lymphadenopathy. Respiratory: Clear to auscultation and percussion. Normal respiratory excursion and pattern. Cardiac: Examination is regular rate and rhythm. Normal S1/S2 Abdominal exam: Soft, nontender, with no palpable masses. No hepatosplenomegaly. No palpable hernias. Extremities: no clubbing, cyanosis or edema. No adenopathy. LABORATORY VALUES: As Noted RADIOLOGIC STUDIES: As Noted Assessment IMPRESSION: encounter for high-risk surveillance colonoscopy due to personal history of polyps and family history of colon cancer PLAN: I have reviewed my findings with the surgeon. Will plan for lower endoscopy. We discussed therisks and benefits of the planned endoscopy. I have informed the patient that complications can occur including failure to complete the endoscopy and perforation. The patient had the opportunity to ask questions concerning the planned endoscopy. My staff has also explained the procedure to the patient in understandable terms and has given the patient printed material concerning the procedure. Thepatient freely consents to surgery. The patient was offered a [facility]/procedure [facility]. I have counseled the patient regarding the risk of exposure to and/or potential harm posed by the COVID-19 virus with having a surgery/procedure at this time versus the risk of delaying the surgery/procedure. It is not possible to know either the risk of delaying the surgery or procedure or chance of getting an infection with perfect accuracy, but a joint decision was made between the patient and myself to proceed at this time with endoscopy. I plan to use Golytely bowel preparation I have explained to the patient the difference between IV conscious sedation and MAC anesthesia - and I have offered either, according to the patient's wishes. I have explained that with IV conscioussedation there is no anesthesia provider available and therefore there is a limitation of the amount of IV medications that can be given and that the patient may wake up in the middle of the procedure and/or experience pain/discomfort during the procedure. Further discussion was done and the patient was given the opportunity to ask questions and all questions were answered. The patient chooses IVconscious sedation, tolerated previously Diagnoses: (Z12.11) Encounter for screening for malignant neoplasm of colon (primary encounter diagnosis) (Z86.010) Personal history of colonic polyps (Z80.0) Family history of colon cancer Consultation requested by Dr. Maradiaga for an opinion regarding surveillance colonoscopy due to personal history of colon polyps and family history of colon cancer. My final recommendations will be communicated back to the requesting physician by way of shared Medical record or letter to requestingphysician via US mail. Jerri Clemens PA-C UPDATED HISTORY AND PHYSICAL EXAMINATION SERVICE DATE: 09/09/2021 SERVICE TIME: 7:32 AM PHYSICAL EXAM MUST BE COMPLETED ON ADMISSION The History and Physical (completed in the past 30 days) has been reviewed and the patient has beenexamined. The contents accurately reflect the patient's condition with the following additions or revisions since the H&P was completed. Examination indicates no changes. This H&P can be found in the attached. SIGNATURE: Minh Gerber III, MD PATIENT NAME: Teresa Rainey DATE: September 09, 2021 TIME: 7:32 AM documented in this encounterBethesda [facility] Hospital04-27-2022 Miscellaneous Notes* Telephone Encounter - Bobbi Hutchisonond - 08/04/2021 8:21 AM EDT Patient called my direct line and left voicemail stating 08/19 will NOT work for colonoscopy. I attempted to call patient but no answer and no voicemail. Sent a [employer] message. Bobbi Dickerson * Telephone Encounter - Bobbi Tuan - 08/03/2021 2:20 PM EDT 08-19-2021 COLON ASC documented in this encounterBethesda [facility] Hospital04-26-2022 History of Present illness Narrative* Jerri Clemens PA-C - 08/03/2021 1:56 PM EDT HISTORY AND PHYSICAL Teresa Rainey 1950 REFERRING PHYSICIAN: Nathanael Maradiaga DO CHIEF COMPLAINT: Consult (colonoscopy) HPI: The patient is a 70 year old male referred for endoscopy. Teresa notes no colon complaints. Patient denies any change in bowel habits, weight changes, blood in stools, black tarry stools or abdominal pain. NOTES family history of colon cancer as well as personal history of polyps. The patient notes no upper GI complaints. Teresa has undergone prior endoscopy. Most recent colonoscopy 05/26/[address] Gerber with no concerning findings noted, repeat colonoscopy recommended in 5 years. Patient denies chest pain, shortness of breath or recent hospitalizations. Denies problems with sedation in the past. PAST MEDICAL HISTORY Diagnosis Date Allergic rhinitis, cause unspecified Cervical disc disorder Diabetes (HCC) Family history of malignant neoplasm of gastrointestinal tract Kidney stones Mixed hyperlipidemia Other and unspecified hyperlipidemia Unspecified constipation Unspecified essential hypertension PAST SURGICAL HISTORY Procedure Laterality Date COLONOSCOPY FLX DX W/COLLJ SPEC WHEN PFRMD 11/27/08 COLONOSCOPY FLX DX W/COLLJ SPEC WHEN PFRMD 05/26/14 Repeat 2019 CYSTOSCOPY,URETEROSCOPY,LITHOTRIPSY 2009 LITHOTRIPSY XTRCORP SHOCK WAVE 2008 Lithotripsy X2 PAST SURGICAL HISTORY OF 1988 CERVICAL DISECTOMY TONSILLECTOMY PRIMARY/SECONDARY <AGE 12 1969 Tonsillectomy Current Outpatient Medications Medication Sig propranolol ER (INDERAL LA) 120 mg 24 hr capsule metFORMIN (GLUCOPHAGE) 1,000 mg tablet losartan (COZAAR) 25 mg tablet mecobalamin (B12 ACTIVE ORAL) Take by mouth. multivitamin (MULTI-DAY ORAL) Take by mouth. simvastatin (ZOCOR) 10 mg tablet Take 10 mg by mouth daily at bedtime. diphenhydrAMINE (BENADRYL ALLERGY) 25 mg tablet Take 25 mg by mouth every 6 hours as needed. Fish Oil-[place]-3 Fatty Acids (FISH OIL) 340-1,000 mg cap Take 1 capsule by mouth three times daily. potassium citrate (UROCIT-K 10) 10 mEq (1,080 mg) TbER Take by mouth twice daily. No current facility-administered medications for this visit. ALLERGIES: Penicillins PERSONAL HISTORY: Social History Tobacco Use Smoking status: Never Smoker Smokeless tobacco: Current User Types: Snuff, Chew Vaping Use Vaping Use: Never used Substance Use Topics Alcohol use: No Drug use: No FAMILY HISTORY: FAMILY HISTORY Problem Relation Age of Onset Colon Cancer Father Cancer Mother Colon Cancer Paternal Aunt Colon Cancer Paternal Uncle other (CROHN'S [Other]) Other REVIEW OF SYMPTOMS: The review of systems data was entered by the nurse and reviewed by id Nursing Notes: Ericka Mcknight RN 08/03/2021 1:50 PM Signed REVIEW OF SYSTEMS: General: The patient denies fatigue, denies weight loss, denies weight gain, denies feeling hot, and denies feelings of cold. Eyes: The patient denies glaucoma, denies eye injury/surgery, wears glasses or contacts. Ear/Nose/Throat: The patient NOTES allergies, denies hayfever, denies ear infections, and denies bloody noses. Cardiovascular: The patient denies chest pain, denies heart disease, denies high blood pressure,denies cardiac stent, denies prior heart attack, denies irregular heart beat, denies high cholesterol, denies poor circulation, denies heart failure, other cardiac issues, denies claudication, denies cold feet, denies peripheral arterial stent. Respiratory: The patient denies tuberculosis, denies pneumonia, denies frequent cough, denies pulmonary embolism, denies shortness of breath, and denies coughing up blood. Gastrointestinal: The patient denies difficulty swallowing, denies acid reflux, denies ulcers, denies vomiting, denies jaundice/hepatitis, denies gallbladder problems, denies black or tarry stools, denies hemorrhoids, denies bleeding from rectum, denies diverticulitis, NOTES constipation, NOTES diarrhea, denies loss of stool control, and denies hernias. Kidney/Bladder: The patient NOTES kidney stones, denies urine infections, and denies bloody urine. Skin: The patient NOTES a history of skin cancer, denies bleeding/changing moles, and denies a history of skin rash. Neurologic: The patient denies a history of epilepsy/convulsions, denies headaches, NOTES head/spinal injuries, and denies stroke/TIA. Psychiatric: The patient denies psychiatric medications, denies depression, and denies voices, denies substance abuse. Endocrine: The patient denies thyroid disorders, NOTESs diabetes, and denies hormonal problems. Hematologic: The patient denies a history of bruising, denies bleeding, and denies anemia, denies blood clots. Infections: The patient NOTES a history of measles and mumps, denies rheumatic fever, and denies sexually transmitted diseases. Musculoskeletal: The patient NOTES back pain/injury, NOTES back problems, denies sciatica, denies knee/foot trouble, NOTES arthritis, or denies gout. When was patient's last Mammogram screening? Last Colonoscopy: 2014 Ericka Mcknight RN I have confirmed and edited as necessary, the PFSH and ROS obtained by others. Jerri Clemens PA-C PHYSICAL EXAMINATION: General: The patient is 70 year old male, well nourished, well hydrated in no acute distress. The patient is oriented to time, place, and person. VITALS: Blood pressure 123/84, pulse 75, temperature 36.3 C (97.4 F), height 167.6 cm (5' 6"), weight 98.9 kg (218 lb), SpO2 96 %. Body mass index is 35.19 kg/m . HEENT: Normal cephalic, ataumatic, pupils are equally round, sclera are anicteric, mucous membranesare moist, oropharynx is clear. Neck has no masses, asymmetry or lymphadenopathy. Respiratory: Clear to auscultation and percussion. Normal respiratory excursion and pattern. Cardiac: Examination is regular rate and rhythm. Normal S1/S2 Abdominal exam: Soft, nontender, with no palpable masses. No hepatosplenomegaly. No palpable hernias. Extremities: no clubbing, cyanosis or edema. No adenopathy. LABORATORY VALUES: As Noted RADIOLOGIC STUDIES: As Noted Assessment IMPRESSION: encounter for high-risk surveillance colonoscopy due to personal history of polyps and family history of colon cancer PLAN: I have reviewed my findings with the surgeon. Will plan for lower endoscopy. We discussed therisks and benefits of the planned endoscopy. I have informed the patient that complications can occur including failure to complete the endoscopy and perforation. The patient had the opportunity to ask questions concerning the planned endoscopy. My staff has also explained the procedure to the patient in understandable terms and has given the patient printed material concerning the procedure. Thepatient freely consents to surgery. The patient was offered a surgery/procedure [facility]. I have counseled the patient regarding the risk of exposure to and/or potential harm posed by the COVID-19 virus with having a surgery/procedure at this time versus the risk of delaying the surgery/procedure. It is not possible to know either the risk of delaying the surgery or procedure or chance of getting an infection with perfect accuracy, but a joint decision was made between the patient and myself to proceed at this time with endoscopy. I plan to use Golytely bowel preparation I have explained to the patient the difference between IV conscious sedation and MAC anesthesia - and I have offered either, according to the patient's wishes. I have explained that with IV conscioussedation there is no anesthesia provider available and therefore there is a limitation of the amount of IV medications that can be given and that the patient may wake up in the middle of the procedure and/or experience pain/discomfort during the procedure. Further discussion was done and the patient was given the opportunity to ask questions and all questions were answered. The patient chooses IVconscious sedation, tolerated previously Diagnoses: (Z12.11) Encounter for screening for malignant neoplasm of colon (primary encounter diagnosis) (Z86.010) Personal history of colonic polyps (Z80.0) Family history of colon cancer Consultation requested by Dr. Maradiaga for an opinion regarding surveillance colonoscopy due to personal history of colon polyps and family history of colon cancer. My final recommendations will be communicated back to the requesting physician by way of shared Medical record or letter to requestingphysician via US mail. Jerri Clemens PA-C documented in this encounterBethesda [facility] Hospital04-26-2022 Nurse Note* Ericka Mcknight RN - 08/03/2021 1:45 PM EDT REVIEW OF SYSTEMS: General: The patient denies fatigue, denies weight loss, denies weight gain, denies feeling hot, and denies feelings of cold. Eyes: The patient denies glaucoma, denies eye injury/surgery, wears glasses or contacts. Ear/Nose/Throat: The patient NOTES allergies, denies hayfever, denies ear infections, and denies bloody noses. Cardiovascular: The patient denies chest pain, denies heart disease, denies high blood pressure,denies cardiac stent, denies prior heart attack, denies irregular heart beat, denies high cholesterol, denies poor circulation, denies heart failure, other cardiac issues, denies claudication, denies cold feet, denies peripheral arterial stent. Respiratory: The patient denies tuberculosis, denies pneumonia, denies frequent cough, denies pulmonary embolism, denies shortness of breath, and denies coughing up blood. Gastrointestinal: The patient denies difficulty swallowing, denies acid reflux, denies ulcers, denies vomiting, denies jaundice/hepatitis, denies gallbladder problems, denies black or tarry stools, denies hemorrhoids, denies bleeding from rectum, denies diverticulitis, NOTES constipation, NOTES diarrhea, denies loss of stool control, and denies hernias. Kidney/Bladder: The patient NOTES kidney stones, denies urine infections, and denies bloody urine. Skin: The patient NOTES a history of skin cancer, denies bleeding/changing moles, and denies a history of skin rash. Neurologic: The patient denies a history of epilepsy/convulsions, denies headaches, NOTES head/spinal injuries, and denies stroke/TIA. Psychiatric: The patient denies psychiatric medications, denies depression, and denies voices, denies substance abuse. Endocrine: The patient denies thyroid disorders, NOTESs diabetes, and denies hormonal problems. Hematologic: The patient denies a history of bruising, denies bleeding, and denies anemia, denies blood clots. Infections: The patient NOTES a history of measles and mumps, denies rheumatic fever, and denies sexually transmitted diseases. Musculoskeletal: The patient NOTES back pain/injury, NOTES back problems, denies sciatica, denies knee/foot trouble, NOTES arthritis, or denies gout. When was patient's last Mammogram screening? Last Colonoscopy: 2014 Ericka Mcknight RN [facility] Author Alvaro Crews [facility] Note Date/Time November 20, 2024 5: 11pm [facility] Medical Records Department [address] [place] [address] Anesthesia Postop Eval I 11/20/241610 MR#: [id number] Acct: [id number] Name: TERESA RAINEY Rep #:[id number] 1 : 1950 74 From: Alvaro VIEIRA PCP: Dr. Nathanael Maradiaga, DO Status:REG SDC Y Race: C Location: [place] [address] Anesthesia: Postop Eval I Current Vital Signs Temperature: 97.2 F Pulse Rate: 60 Blood Pressure: 168/72 Respiratory Rate: 16 Pulse Ox: 92 Assessment Airway patent: Yes Spontaneous unlabored respirations: Yes nausea: No Vomiting: No Anesthesia Complication: No Fluid Hydration Crystalloid volume administer (ml): 600 Total IV fluid infused: 600 Progress Note Anesthesia document: Postop Eval 1 completed: Yes 11/20/241610 <Electronically signed by Alvaro Crews CRNA> Date _ Alvaro Crews CRNA Cosigner Signature: Date CC: ~ Signed [facility] Work Phone: Consult note Author Karen Neves [facility] Note Date/Time November 20, 2024 4: 39pm [facility] Medical Records Department [address] [place] [address] Anesthesia Postop Eval II 11/20/24 1638 MR#: [id number] Acct: [id number] Name: TERESA RAINEY Rep #:[id number] 7 : 1950 74 From: Karen Neves DENTAL OFFICE RECEPTIONIST PCP: Dr. Nathanael Maradiaga, DO Status:REG SDC Y Race: C Location: [place] [address] 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/24 16:11 DENTAL OFFICE RECEPTIONIST.TNES Spontaneous unlabored Yes 11/20/24 16:11 DENTAL OFFICE RECEPTIONIST.TNES respirations Mental status nausea No 11/20/24 16:11 DENTAL OFFICE RECEPTIONIST.TNES Vomiting No 11/20/24 16:11 DENTAL OFFICE RECEPTIONIST.TNES Anesthesia Postop Eval I: Fluid Summary Crystalloid volume administer 600 11/20/24 16:11 DENTAL OFFICE RECEPTIONIST.TNES (ml) Colloids volume administered ( ml) Blood Product volume administered (ml) Total IV fluid infused 600 11/20/24 16:11 DENTAL OFFICE RECEPTIONIST.TNES Anesthesia Postop Eval I: Summary Notes Anesthesia Complication No 11/20/24 16:11 DENTAL OFFICE RECEPTIONIST.TNES Anesthesia Complication Comment: Post-operative progress note Anesthesia: Postop Eval II Evaluation Mental status: Awake Pain Level: 2 nausea: No Vomiting: No 11/20/24 1639 <Electronically signed by Karen shaw CRNA> Date _ Karen Neves CRNA Cosigner Signature: Date CC: ~ Signed [facility] Work Phone: Discharge summary Author Duke Trinh [facility] Note Date/Time November 20, 2024 5: 11pm [facility] Medical Records Department [address] [place] [address] Instructions for Home/Discharge Instructions 11/20/24 1558 MR#: [id number] Acct: [id number] Name: TERESA RAINEY Rep #:[id number] 5 : 1950 74 From: Duke Trinh MD PCP: Dr. Nathanael Maradiaga, DO Status:REG SDC Discharge Instructions DC O2, CPAP, BIPAP needs Home O2 Discharge instructions: No Dressing / Incision Discharge Activity: Return to Normal Activity and May Not Drive (while taking narcotic pain medications.) Dressing / Incision Call your doctor if you observe: Fever of 101 or Higher Follow Up Care Please Follow Up With: Duke Trinh MD When: Call [phone] for an appointment Test Results: Test results from this visit will be discussed in further detail at your follow- up appointment, if applicable. Discharge Plan Admission Primary Reason for Your Visit: right ESWL and stent Attending Provider: Duke Trinh Primary Care Provider: Nathanael Maradiaga Instructions Print Language: [place] Discharge Orders/Prescriptions Prescriptions: New ciprofloxacin HCl [Cipro] 500 mg tablet 500 mg PO BID Qty: 6 0RF oxycodone 5 mg tablet 5 mg PO Q4H PRN (Reason: pain) 3 Days Qty: 10 0RF Continued propranolol 120 mg capsule,extended release 24 hr 120 mg PO DAILY omega-3 fatty acids [Fish Oil Concentrate] 1,000 mg capsule 1,000 mg PO DAILY docusate sodium 100 mg capsule 100 mg PO QHS PRN (Reason: Constipation) hydralazine 10 mg tablet 10 mg PO BID finasteride 5 mg tablet 5 mg PO QDAY simvastatin 10 MG tablet 10 mg PO QHS multivitamin 1 EACH tablet 1 ea PO DAILY naphazoline-pheniramine 15 ML drops 2 drp OP PRN PRN (Reason: Allergies) diphenhydramine HCl 25 mg capsule 25 mg PO BID PRN (Reason: Allergies) glipizide 5 mg tablet 7.5 mg PO .PM Rx Instructions: BEFORE SUPPER glipizide 5 mg tablet 5 mg PO DAILY Rx Instructions: BEFORE BREAKFAST metformin 1,000 mg tablet 1,000 mg PO BID losartan 100 mg tablet 100 mg PO DAILY vitamin T29-hzttl acid 1,000-400 mcg tablet, sublingual 1 tab sublingual DAILY coenzyme Q10 [Co Q-10] 100 mg capsule 200 mg PO DAILY cyclobenzaprine 10 mg tablet 10 mg PO TID PRN (Reason: spasms) senna 8.6 mg capsule 8.6 mg PO BID PRN (Reason: constipation) Qty: 30 0RF Referrals / Follow Up: Duke Trinh MD [Med Staff - Active Staff] - Nathanael Maradiaga DO [Primary Care Provider] - Disposition Disposition (needs filled in before D/C Order can be placed): Home, Self Care 11/20/24 1564<Electronically signed by Duke Trinh MD>Duke Trinh MD CC: Dr. Nathanael Maradiaga DO ~ Signed [facility] Work Phone: evaluation note* Diagnosis Encounter for screening for malignant neoplasm of colon- Primary Special screening for malignant neoplasms, colon Personal history of colonic polyps Family history of colon cancer Family history of malignant neoplasm of gastrointestinal tract documented in this encounter [facility] note* Diagnosis History of colonic polyps Personal history of colonic polyps Family history of colon cancer Family history of malignant neoplasm of gastrointestinal tract documented in this encounter [facility] note* Diagnosis Tubular adenoma- Primary Benign neoplasm of unspecified site Family history of colon cancer Family history of malignant neoplasm of gastrointestinal tract History of colonic polyps Personal history of colonic polyps documented in this encounter [facility] note* Diagnosis History of colonic polyps- Primary Personal history of colonic polyps Family history of colon cancer Family history of malignant neoplasm of gastrointestinal tract documented in this encounter [facility] noteNo assessment information availableWUniversity Hospitals St. [facility] Work Phone: evaluation note* Diagnosis Pre-op examination- Primary Myogenic ptosis of bilateral eyelids Essential hypertension Unspecified essential hypertension Mixed hyperlipidemia Type 2 diabetes mellitus with other ophthalmic complication, without long-term current use of insulin (HCC) documented in this encounter [facility] note* Diagnosis Screen for colon cancer- Primary Special screening for malignant neoplasms, colon History of colonic polyps Personal history of colonic polyps Family history of colon cancer Family history of malignant neoplasm of gastrointestinal tract [facility] Encounter for screening for malignant neoplasm of colon- Primary Special screening for malignant neoplasms, colon Screen for colon cancer Special screening for malignant neoplasms, colon History of colonic polyps Personal history of colonic polyps [facility] Adenomatous polyp- Primary Benign neoplasm of unspecified site [facility] Additional Instructions Use individual reduction of medications and recording as we discussed.[facility] Work Phone: Progress note Author Florina Metz [facility] Note Date/Time July 11, 2024 12:3 3pm [facility] Medical Records Department [address] [place] [address] Progress Note - Orthopedic 07/11/24 1229 MR#: [id number] Acct: [id number] Name: TERESA RAINEY Rep #:[id number] 1 : 1950 73 From: Florina KYLE PCP: Dr. Nathanael Maradiaga, DO Status:ADM SILVANO Location: MS3 [id number] Subjective Subjective Postop day 1 C4-6 ACDF. Patient is doing well with his pain well-managed. Patient has been up with therapy and has been cleared for home discharge. Patient denies any dysphagia. Says that nursing had to change the dressing 3 times due to saturation. Seen with Dr. Yip. Objective Data Objective Data Vital Signs: Vital Signs Temp Pulse Resp BP Pulse Ox O2 Del Method O2 Flow Rate 97.9 F 74 18 161/77 H 98 Room Air 2 07/11/24 09:38 07/11/24 09:38 07/11/24 09:38 07/11/24 09:38 07/11/24 09:55 07/11/24 09:38 07/10/24 16:05 Oxygen Flow Rate (L/min) 2 Oxygen Delivery Method Room Air Weight: 220 lb 7.396 oz Body Mass Index (BMI) 34.5 Intake & Output: Intake and Output for Last 24 Hours 07/09/24 07/10/24 07/11/24 23:59 23:59 23:59 Intake Total 1591.25 / 1591.25 50 / 50 Output Total 700 / 700 Balance 891.25 / 891.25 50 / 50 Lab / Micro Data 07/11/24 06:18 07/11/24 06:18 Labs: Laboratory Results - last 24 hr 07/10/24 22:21: POC Glucose 210 H 07/11/24 06:18: WBC 14.4 H, RBC 3.88 L, Hgb 12.3 L, Hct 35.7 L, MCV 92.0, MCH 31.7, MCHC 34.5, RDW Std Deviation 42.1, RDW Coeff of Ethel 12.6, Plt Count 240, MPV 10.8, Sodium 138, Potassium 4.6, Chloride 100, Carbon Dioxide 18.9 L, Anion Gap 19 H, BUN 19, Creatinine 1.14, Estim Creat Clear Calc 65.02, Est GFR (MDRD) Non-Af 68, BUN/Creatinine Ratio 17.0, Glucose 199 H, Calcium 9.2 07/11/24 06:33: POC Glucose 213 H Micro: Microbiology 06/27/24 13:05 Swab (Method) Nasal Screen MRSA/MSSA - Final Radiography Diagnostic Testing: Radiology Impression Cervical Spine X-Ray 07/11/24 04:40 IMPRESSION: Status post anterior cervical disc fusion with intervertebral disc spacers C4 through C6 appears anatomic and intact as above. No fracture or malalignment identified. Reading Location: [facility] Physical Exam Narrative Gauze and Tegaderm was removed, drain removed. New Tegaderm and gauze was applied over the incision. Cervical collar was reapplied and instructed patienton how to adjusted to comfort. Neurological examination of the upper extremity shows 5X5 power. Normal sensation across all dermatomes. Const alert, oriented x3 and no apparent distress Assessment & Plan Assessment/Plan (1) Status post cervical spinal fusion: PLAN: Plan Obtained and reviewed x-rays today which show hardware and bone graft in good position. Patient is postop day 1 C4-6 ACDF. Pain has been well-managed, no dysphagia, therapy has cleared for home discharge. Home meds include hydrocodone?acetaminophen, meloxicam, methocarbamol, senna. OARRS reviewed. Reviewed restrictions of no bending, lifting, twisting. He will wear the cervical collar full-time for the first 2 weeks. He will follow-up in the clinic in 2 weeks. Patient is in agreement. 07/11/24 1233 <Electronically signed by Florina KYLE> Cosigner Signature (if applicable): CC: ~ Signed [facility] Work Phone: Reason for referral (narrative)* Outpatient Procedure (Routine) - Closed Specialty Diagnoses / Procedures Referred By Contdread t Referred To Contact [facility] [place] Diagnoses History of colonic polyps Family history of colon cancer Procedures COLONOSCOPY SCREENING COLONOSCOPY FLX DX W/COLLJ SPEC WHEN Jreri Borges PA-C [address] [facility]. [place] [phone] [facility] [address] [place], [place] [id number] Referral ID Status Reason Start Date Expiration Date V isits Requested Visits Authorized [id number] Closed Auto-Generate d Referral 08/03/2021 08/03/2022 1 1 [facility] for referral (narrative)* Outpatient Procedure (Routine) - Closed Specialty Diagnoses / Procedures Referred By Sadia banerjee Referred To Contact [facility] Diagnoses History of colonic polyps Family history of colon cancer Procedures COLONOSCOPY SCREENING COLONOSCOPY FLX DX W/COLLJ SPEC WHEN Jerri Borges PA-C [address] [place] [address] [facility] [address] [place] [id number] Referral ID Status Reason Start Date Expiration Date V isits Requested Visits Authorized [id number] Closed Auto-Generate d Referral 08/03/2021 08/03/2022 1 1 [facility] for referral (narrative)No reason for referral information availableWUniversity Hospitals St. [facility] Work Phone: Reason for visit Narrative* Outpatient Procedure (Routine) - Closed Specialty Diagnoses / Procedures Referred By Sadia banerjee Referred To Contact [facility] [place] Diagnoses History of colonic polyps Family history of colon cancer Procedures COLONOSCOPY SCREENING COLONOSCOPY FLX DX W/COLLJ SPEC WHEN PFJerri Chan PA-C [address] [place] [address] [facility] [address] [place] [address] Referral ID Status Reason Start Date Expiration Date V isits Requested Visits Authorized [id number] Closed Auto-Generate d Referral 08/03/2021 08/03/2022 1 [facility] Outpatient Procedure (Routine) - Closed Specialty Diagnoses / Procedures Referred By Sadia t Referred To Contact [facility] Diagnoses Screen for colon cancer History of colonic polyps Procedures COLONOSCOPY SCREENING COLONOSCOPY FLX DX W/COLLJ SPEC WHEN Karly Landa APRN.POWER PRESS TENDER [address] [place] [address] Phone: tel: fax: [facility] [address] [place], [place] [address] [place] [address] Referral ID Status Reason Start Date Expiration Date V isits Requested Visits Authorized [id number] Closed Auto-Generate d Referral 08/12/2024 08/12/2025 1 1 [facility] Chief Complaint Chief Complaint Description Start Date neck pain Preliminary chief co mplaint data, not yet signed by the author as of Instructions Instruction Description Start Date CompletedPatient advised to follow-up with Primary Care Physician for BMI management. Advance Directives No Advanced Directives Records FoundDocuments on File Type Date Recorded Patient Range Examiner Expl anation Advance Directive(s) 09/09/2021 7:07 AM Advance Directive(s) 08/12/2021 4:39 PM Documents on File Type Date Recorded Patient Range Examiner Expl anation Advance Directive(s) 09/09/2021 7:07 AM Advance Directive(s) 08/12/2021 4:39 PM Advance Directive Response Recorded Date/ Time Living Will Yes June 19, 2019 10:20am Power of Staff Training And Development Manager Yes June 18 10:20am Advance Directive Response Recorded Date/ Time Living Will Yes June 19, 2019 9:20am Power of Staff Training And Development Manager Yes March 11th, 20 20 9:20am Advance Directive Response Recorded Date/ Time Living Will Yes December 02 10:15am Power of Staff Training And Development Manager Yes December 02, 023 10:15am Advance Directive Response Recorded Date/ Time Name of Medical Power of Staff Training And Development Manager December 02, 2022 10:15am Living Will Yes December 02 10:15am Power of Staff Training And Development Manager Yes December 02, 023 10:15am Advance Directive Response Recorded Date/ Time Living Will No December 12 7:12pm Power of Staff Training And Development Manager No December 12, 2022 7:12pm Name of Medical Power of Staff Training And Development Manager December 02, 2022 10:15am Advance Directive Response Recorded Date/ Time Name of Medical Power of Staff Training And Development Manager December 02, 2022 10:15am Name of Medical Power of Staff Training And Development Manager MYRTLE January 02, 2023 1:09pm Living Will Yes January 02, 2023 1:09pm Power of Staff Training And Development Manager Yes December 1:09pm Advance Directive Response Recorded Date/ Time Living Will Yes January 02, 2023 1:09pm Power of Staff Training And Development Manager Yes December 1:09pm Advance Directive Response Recorded Date/ Time Living Will Yes July 10, 2024 1:49pm Do you have a Healthcare Power of Staff Training And Development Manager? Yes July 10, 2024 1:49pm Name of Medical Power of Staff Training And Development Manager July 10, 2024 1:49pm Advance Directive Response Recorded Date/ Time Do you have a Healthcare Power of Staff Training And Development Manager? Yes November 14, 2024 11:02am Name of Medical Power of Staff Training And Development Manager November 14, 2024 11:02am Assessments There may be information available, but it has not been provided by the sender. Review of System There may be information available, but it has not been provided by the sender. Family History No Family History Records Found Relationship Condition Age at Onset Recorded Date/[place] father Malignant neoplasm of colon Unknown Cerebrovascular accident (CVA) Unknown mother Malignant neoplasm Unknown son Hypertension Unknown History of Present Illness There may be information available, but it has not been provided by the sender. Medications Administered Section Inactive Administered Medications - up to 3 most recent administrations Medication Order MAR Action Action Date Dose Rate Site diphenhydrAMINE 12.5-50 mg injection (BENADRYL) 12.5-50 mg, INTRAVENOUS, DIRECTED, Starting on Richelle 09/09/21 at 0830, Until Richelle 09/09/21 at 1229, DOSING DIRECTED BY PHYSICIAN FOR PROCEDURAL SEDATION ONLY, Intraprocedure Given 09/09/2021 8:05 AM EDT 50 mg fentaNYL 50 mcg/mL 25-100 mcg injection (SUBLIMAZE) 25-100 mcg, INTRAVENOUS, DIRECTED, Starting on Richelle 09/09/21 at 0830, Until Richelle 09/09/21 at 1229, DOSING DIRECTED BY PHYSICIAN FOR PROCEDURAL SEDATION ONLY, Intraprocedure Given 09/09/2021 8:03 AM EDT 50 mcg lactated ringers iv infusion 30 mL/hr, INTRAVENOUS, CONTINUOUS, Starting on Richelle 09/09/21 at 0730, Until Richelle 09/09/21 at 0843, Preprocedure New Bag/Syringe/Bottle 09/09/2021 7:45 AM EDT 30 mL/hr 30 mL/hr midazolam (PF) 1-5 mg injection (VERSED) 1-5 mg, INTRAVENOUS, DIRECTED, Starting on Richelle 09/09/21 at 0830, Until Richelle 09/09/21 at 1229, DOSING DIRECTED BY PHYSICIAN FOR PROCEDURAL SEDATION ONLY, Intraprocedure Given 09/09/2021 8:31 AM EDT 1 mg Given 09/09/2021 8:03 AM EDT 3 mg Chief Complaint and Reason for Visit Chief Complaint I73.9 Peripheral vas cular disease, unspecified Chief Complaint NECK PAIN/RX HERE SINUSITIS Chief Complaint NECK PAIN/RX HERE SINUSITIS Headache, unspecified Chief Complaint Radiculopathy, thora cic region Chief Complaint Radiculopathy, thora cic region Other intervertebral disc degeneration, lumbosacra Chief Complaint Radiculopathy, thora cic region Other intervertebral disc degeneration, lumbosacra Percutaneous,Nephrostolithomy Chief Complaint Radiculopathy, thora cic region Other intervertebral disc degeneration, lumbosacra Percutaneous,Nephrostolithomy weakness Chief Complaint Radiculopathy, thora cic region Other intervertebral disc degeneration, lumbosacra Percutaneous,Nephrostolithomy weakness WEAKNESS Chief Complaint Generalized abdomina l pain Chief Complaint Generalized abdomina l pain PSA Chief Complaint Admit Date LUMBAR SPINE April 09, 2024 12:47pm Xray room 3 April 09, 2024 1:20pm CERVICAL SPINE May 17, 2024 1 :19pm room 3 May 17, 2024 2 :02pm PREOP June 27, 2024 12: 54pm cervical spine July 04, 2024 1:2 6pm ERAS, Anterior Cervical Disc Fusion C4-5 and C5-6 July 10, 2024 7:23am ERAS, Anterior Cervical Disc Fusion C4-5 and C5-6 July 10, 2024 10:42am ERAS, Anterior Cervical Disc Fusion C4-5 and C5-6 July 10, 2024 5:07pm ERAS, Anterior Cervical Disc Fusion C4-5 and C5-6 July 11, 2024 12:29pm Reason for Visit Admit Date 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 April 09, 2024 12:47pm Balance problem April 09, 2024 12:47pm Degeneration, intervertebral disc, thora cic April 09, 2024 12:47pm Spondylolisthesis, lumbar region Decembe r 2023 12:47pm 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 May 17, 2024 1:19pm Cervical myelopathy May 17, 2024 1 :19pm Degeneration, intervertebral disc, thora cic May 17, 2024 1:19pm Spondylolisthesis, lumbar region Februar 2024 1:19pm 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 July 04, 2024 1:26pm Cervical myelopathy July 04, 2024 1:2 6pm Degeneration, intervertebral disc, thora cic July 04, 2024 1:26pm Spondylolisthesis, lumbar region June 092024 1:26pm 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 July 10, 2024 10:42am Cervical myelopathy July 10, 2024 10:4 2am Status post cervical spinal fusion July 10, 2024 10:42am Chief Complaint Admit Date CERVICAL SPINE May 17, 2024 1 :19pm room 3 May 17, 2024 2 :02pm PREOP June 27, 2024 12: 54pm cervical spine July 04, 2024 1:2 6pm ERAS, Anterior Cervical Disc Fusion C4-5 and C5-6 July 10, 2024 7:23am ERAS, Anterior Cervical Disc Fusion C4-5 and C5-6 July 10, 2024 10:42am ERAS, Anterior Cervical Disc Fusion C4-5 and C5-6 July 10, 2024 5:07pm ERAS, Anterior Cervical Disc Fusion C4-5 and C5-6 July 11, 2024 10:53am ERAS, Anterior Cervical Disc Fusion C4-5 and C5-6 July 11, 2024 12:29pm cervical spine July 25, 2024 1:3 6pm RM 3 July 25, 2024 1:4 9pm cervical spine August 22, 2024 2:24p m Room 4 August 22, 2024 2:39p m Reason for Visit Admit Date Degeneration, intervertebral disc, thora cic May 17, 2024 1:19pm Spondylolisthesis, lumbar region Februar 2024 1:19pm 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 May 17, 2024 1:19pm Cervical myelopathy May 17, 2024 1 :19pm Degeneration, intervertebral disc, thora cic July 04, 2024 1:26pm Spondylolisthesis, lumbar region June 092024 1:26pm 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 July 04, 2024 1:26pm Cervical myelopathy July 04, 2024 1:2 6pm Status post cervical spinal fusion July 10, 2024 10:42am 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 July 10, 2024 10:42am Cervical myelopathy July 10, 2024 10:4 2am Status post cervical spinal fusion July 25, 2024 1:36pm Chief Complaint Admit Date PREOP June 27, 2024 12: 54pm cervical spine July 04, 2024 1:2 6pm ERAS, Anterior Cervical Disc Fusion C4-5 and C5-6 July 10, 2024 7:23am ERAS, Anterior Cervical Disc Fusion C4-5 and C5-6 July 10, 2024 10:42am ERAS, Anterior Cervical Disc Fusion C4-5 and C5-6 July 10, 2024 5:07pm ERAS, Anterior Cervical Disc Fusion C4-5 and C5-6 July 11, 2024 10:53am ERAS, Anterior Cervical Disc Fusion C4-5 and C5-6 July 11, 2024 12:29pm cervical spine July 25, 2024 1:3 6pm RM 3 July 25, 2024 1:4 9pm cervical spine August 22, 2024 2:24p m Room 4 August 22, 2024 2:39p m CERVICAL SPINE October 18, 2024 12:5 8pm room 2 October 18, 2024 1:07 pm Reason for Visit Admit Date Degeneration, intervertebral disc, thora cic July 04, 2024 1:26pm Spondylolisthesis, lumbar region June 092024 1:26pm 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 July 04, 2024 1:26pm Cervical myelopathy July 04, 2024 1:2 6pm Status post cervical spinal fusion July 10, 2024 10:42am 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 July 10, 2024 10:42am Cervical myelopathy July 10, 2024 10:4 2am Status post cervical spinal fusion July 25, 2024 1:36pm Status post cervical spinal fusion August 082024 2:24pm Reason for Visit Admit Date Degeneration, intervertebral disc, thora cic July 04, 2024 1:26pm Spondylolisthesis, lumbar region June 092024 1:26pm 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 July 04, 2024 1:26pm Cervical myelopathy July 04, 2024 1:2 6pm Status post cervical spinal fusion July 10, 2024 10:42am 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 July 10, 2024 10:42am Cervical myelopathy July 10, 2024 10:4 2am Status post cervical spinal fusion July 25, 2024 1:36pm Status post cervical spinal fusion August 082024 2:24pm Status post cervical spinal fusion October 18, 2024 12:58pm Chief Complaint Admit Date cervical spine July 25, 2024 1:3 6pm RM 3 July 25, 2024 1:4 9pm cervical spine August 22, 2024 2:24p m Room 4 August 22, 2024 2:39p m CERVICAL SPINE October 18, 2024 12:5 8pm room 2 October 18, 2024 1:07 pm Calculus of kidney November 11, 2024 2:0 3pm Reason for Visit Admit Date Status post cervical spinal fusion July 25, 2024 1:36pm Status post cervical spinal fusion August 082024 2:24pm Status post cervical spinal fusion October 18, 2024 12:58pm Chief Complaint Admit Date cervical spine July 25, 2024 1:3 6pm RM 3 July 25, 2024 1:4 9pm cervical spine August 22, 2024 2:24p m Room 4 August 22, 2024 2:39p m CERVICAL SPINE October 18, 2024 12:5 8pm room 2 October 18, 2024 1:07 pm Calculus of kidney November 11, 2024 2:0 3pm ESWL,Cystocopy Insertion Stent November 202024 12:41pm Summary Purpose Additional Source Comments Reason for Visit (unrecogniz ed section and content) Reason For Visit Description New - 1st visit with practice Preliminary reason f or visit data, not yet signed by the author as of neck pain Reason Comments Consult colonoscopy Reason Comments Follow Up colonoscopy Reason Comments 08-19-2021 COLON ASC Reason Comments Perioperative Medical Evaluation Myogeni c ptosis of bilateral eyelids Reason Comments Consult Reason Comments Follow Up Follow up from colon oscopy. Source Comments (unrecognize d section and content) In the event this informatio n is protected by the Federal Confidentiality of Alcohol and Drug Abuse Patient Records regulations: The Federal rules restrict any use of the information to criminally investigate or prosecute any alcohol or drug abuse patient.[facility] the event this information is protected by the Federal Confidentiality of Alcohol and Drug Abuse Patient Records regulations: The Federal rules restrict any use of the information to criminally investigate or prosecute any alcohol or drug abuse patient.[facility] the event this information is protected by the Federal Confidentiality of Alcohol and Drug Abuse Patient Records regulations: The Federal rules restrict any use of the information to criminally investigate or prosecute any alcohol or drug abuse patient.[facility] the event this information is protected by the Federal Confidentiality of Alcohol and Drug Abuse Patient Records regulations: The Federal rules restrict any use of the information to criminally investigate or prosecute any alcohol or drug abuse patient.[facility] the event this information is protected by the Federal Confidentiality of Alcohol and Drug Abuse Patient Records regulations: The Federal rules restrict any use of the information to criminally investigate or prosecute any alcohol or drug abuse patient.[facility] the event this information is protected by the Federal Confidentiality of Alcohol and Drug Abuse Patient Records regulations: The Federal rules restrict any use of the information to criminally investigate or prosecute any alcohol or drug abuse patient.[facility] Hospital[facility] the event this information is protected by the [facility] Confidentiality of Alcohol and Drug Abuse Patient Records regulations: The Federal rules restrict any use of the information to criminally investigate or prosecute any alcohol or drug abuse patient.[facility] Hospital[facility] the event this information is protected by the Federal Confidentiality of Alcohol and Drug Abuse Patient Records regulations: The Federal rules restrict any use of the information to criminally investigate or prosecute any alcohol or drug abuse patient.[facility] Care Teams (unrecognized sec tion and content) [employer] Supervisor Relationship Specialty Start Date End Date Nathanael Maradiaga DO [address] [address] PCP - General Family Practice 06/22/21 [employer] Supervisor Relationship Specialty Start Date End Date Nathanael Maradiaga DO [address] [address] PCP - General Family Practice 06/22/21 [employer] Supervisor Relationship Specialty Start Date End Date Nathanael Maradiaga DO [address] [place] [address] PCP - General Family Practice 06/22/21 [employer] Supervisor Relationship Specialty Start Date End Date Nathanael Maradiaga DO [address] [place] [address] PCP - General Family Practice 06/22/21 [employer] Assembly Supervisor Relationship Specialty Start Date End Date No, Physician [facility] PCP - General 03/16/22 Team Status: Active Member Role Status Dates Dr. Nathanael Maradiaga DO Family Provider Active Dr. Nathanael Maradiaga DO Primary Care Provider Active Team Status: Inactive Member Role Status Dates Dr. Nathanael Maradiaga DO Primary Care Provider Active Dr. Yamile Hines MD Attending Provider, Referring Pr ovider Active Team Status: Inactive Member Role Status Dates Dr. Nathanael Maradiaga DO Primary Care Provider Active Dr. Raymundo Hargrove MD Attending Provider, Referring P rovider Active Team Status: Inactive Member Role Status Dates Dr. Nathanael Maradiaga DO Primary Care Provider, Attendin g Provider Active Team Status: Inactive Member Role Status Dates Dr. Nathanael Maradiaga DO Primary Care Prov ider, Attending Provider, Referring Provider Active Team Status: Inactive Member Role Status Dates Dr. Nathanael Maradiaga DO Primary Care Provider Active Dr. Duke Trinh MD Attending Provider, Referr ing Provider Active Team Status: Inactive Member Role Status Dates Dr. Nathanael Maradiaga DO Primary Care Provider Active Dr. Bessie Haro MD Emergency Provider Active Team Status: Inactive Member Role Status Dates Dr. Nathanael Maradiaga DO Primary Care Provider Active Dr. Bessie Haro MD Attending Provider, Emergency Provider Active Team Status: Inactive Member Role Status Dates Dr. Nathanael Maradiaga DO Primary Care Provider Active Dr. Blas Copeland MD Emergency Provider Active Team Status: Inactive Member Role Status Dates Dr. Duke Trinh MD Attending Provider, Referr ing Provider Active Dr. Nathanael Maradiaga DO Primary Care Provider Active Team Status: Inactive Member Role Status Dates Dr. Nathanael Maradiaga DO Primary Care Provider Active Esthela Leo Attending Provider, Referring Provide r Active Team Status: Active Member Role Status Dates Dr. Nathanael Maradiaga DO Primary Care Provider Active Team Status: Inactive Member Role Status Dates Dr. Nathanael Maradiaga DO Primary Care Provider Active Start: April 09, 2024 End: April 09, 2024 Dr. Nathanael Maradiaga DO Referring Provider Active Start: April 09, 2024 End: April 09, 2024 Dr. Alexandre Yip MD Attending Provider Active Start: April 09, 2024 End: April 09, 2024 Team Status: Inactive Member Role Status Dates Dr. Nathanael Maradiaga DO Primary Care Provider Active Start: April 09, 2024 End: April 09, 2024 Dr. Tha Mcghee MD Attending Provider Active S tart: April 09, 2024 End: April 09, 2024 Team Status: Inactive Member Role Status Dates Dr. Nathanael Maradiaga DO Primary Care Provider Active Start: May 17, 2024 End: May 17, 2024 Dr. Nathanael Maradiaga DO Referring Provider Active Start: May 17, 2024 End: May 17, 2024 Dr. Alexandre Yip MD Attending Provider Active Start: May 17, 2024 End: May 17, 2024 Team Status: Inactive Member Role Status Dates Dr. Nathanael Maradiaga DO Primary Care Provider Active Start: May 17, 2024 End: May 17, 2024 Dr. Tha Mcghee MD Attending Provider Active S tart: May 17, 2024 End: May 17, 2024 Team Status: Active Member Role Status Dates Dr. Nathanael Maradiaga DO Primary Care Provider Active Start: June 27, 2024 End: June 27, 2024 Dr. Tha Mcghee MD Attending Provider Active S tart: June 27, 2024 End: June 27, 2024 Dr. Alexandre Yip MD Referring Provider Active Start: June 27, 2024 End: June 27, 2024 Team Status: Inactive Member Role Status Dates Dr. Nathanael Maradiaga DO Primary Care Provider Active Start: July 04, 2024 End: July 04, 2024 Dr. Nathanael Maradiaga DO Referring Provider Active Start: July 04, 2024 End: July 04, 2024 Dr. Alexandre Yip MD Attending Provider Active Start: July 04, 2024 End: July 04, 2024 Team Status: Active Member Role Status Dates Dr. Nathanael Maradiaga DO Primary Care Provider Active Start: July 10, 2024 Dr. Alexandre Yip MD Attending Provider Active Start: July 10, 2024 Dr. Alexandre Yip MD Referring Provider Active Start: July 10, 2024 Dr. Alexandre Yip MD Other Provider Active Star t: July 10, 2024 Team Status: Inactive Member Role Status Dates Dr. Nathanael Maradiaga DO Primary Care Provider Active Start: July 10, 2024 End: July 11, 2024 Dr. Alexandre iYp MD Admit Provider Active Star t: July 10, 2024 End: July 11, 2024 Dr. Alexandre Yip MD Attending Provider Active Start: July 10, 2024 End: July 11, 2024 Dr. Alexandre Yip MD Referring Provider Active Start: July 10, 2024 End: July 11, 2024 Dr. Racheal Neves MD Other Provider Active St art: July 10, 2024 End: July 11, 2024 Dr. Morro Andres MD Other Provider Active Sta rt: July 10, 2024 End: July 11, 2024 Team Status: Active Member Role Status Dates Dr. Nathanael Maradiaga DO Primary Care Provider Active Start: July 10, 2024 Dr. Alexandre Yip MD Admit Provider Active Star t: July 10, 2024 Dr. Alexandre iYp MD Referring Provider Active Start: July 10, 2024 Dr. Alexandre Yip MD Other Provider Active Star t: July 10, 2024 Dr. Racheal Neves MD Attending Provider Active Start: July 10, 2024 Dr. Racheal Neves MD Other Provider Active St art: July 10, 2024 Team Status: Active Member Role Status Dates Dr. Nathanael Maradiaga DO Primary Care Provider Active Start: July 11, 2024 Dr. Alexandre Yip MD Admit Provider Active Star t: July 11, 2024 Dr. Alexandre Yip MD Referring Provider Active Start: July 11, 2024 Dr. Alexandre Yip MD Other Provider Active Star t: July 11, 2024 Dr. Racheal Neves MD Other Provider Active St art: July 11, 2024 Dr. Morro Andres MD Other Provider Active Sta rt: July 11, 2024 ANABELLA Warren Attending Provider Active Star t: July 11, 2024 [employer] Assembly Supervisor Relationship Specialty Start [place] [address] [place], [place] [address] [place] [address] PCP - General Family Medicine 06/22/21 Team Status: Active Member Role Status Dates Dr. Nathanael Maradiaga DO Primary Care Provider Active Start: July 11, 2024 Dr. Alexandre Yip MD Admit Provider Active Star t: July 11, 2024 Dr. Alexandre Yip MD Other Provider Active Star t: July 11, 2024 Dr. Racheal Neves MD Other Provider Active St art: July 11, 2024 Dr. Morro Andres MD Attending Provider Active Start: July 11, 2024 Dr. Morro Andres MD Other Provider Active Sta rt: July 11, 2024 Team Status: Inactive Member Role Status Dates Dr. Nathanael Maradiaga DO Primary Care Provider Active Start: July 25, 2024 End: July 25, 2024 Dr. Nathanael Maradiaga DO Referring Provider Active Start: July 25, 2024 End: July 25, 2024 Dr. Alexandre Yip MD Attending Provider Active Start: July 25, 2024 End: July 25, 2024 Team Status: Inactive Member Role Status Dates Dr. Nathanael Maradiaga DO Primary Care Provider Active Start: July 25, 2024 End: July 25, 2024 Dr. Tha Mcghee MD Attending Provider Active S tart: July 25, 2024 End: July 25, 2024 Team Status: Active Member Role Status Dates Dr. Nathanael Maradiaga DO Primary Care Provider Active Start: August 22, 2024 Dr. Nathanael Maradiaga DO Referring Provider Active Start: August 22, 2024 ANABELLA Warren Attending Provider Active Star t: August 22, 2024 Team Status: Inactive Member Role Status Dates Dr. Nathanael Maradiaga DO Primary Care Provider Active Start: August 22, 2024 End: August 22, 2024 Dr. Tha Mcghee MD Attending Provider Active S tart: August 22, 2024 End: August 22, 2024 Team Status: Inactive Member Role Status Dates Dr. Nathanael Maradiaga DO Primary Care Provider Active Start: August 22, 2024 End: August 22, 2024 Dr. Nathanael Maradiaga DO Referring Provider Active Start: August 22, 2024 End: August 22, 2024 ANABELLA Warren Attending Provider Active Star t: August 22, 2024 End: August 22, 2024 [employer] Supervisor Relationship Specialty Start Date End Date Nathanael Maradiaga [address] [place] [address] PCP - General Family Medicine 06/22/21 [employer] Supervisor Relationship Specialty Start Date End Date Nathanael Maradiaga [address] [place], [place] [id number] PCP - General Family Medicine 06/22/21 Team Status: Active Member Role/Relationship Status Dates Dr. Nathanael Maradiaga DO Primary Care Provider Active Team Status: Active Member Role/Relationship Status Dates Dr. Nathanael Maradiaga DO Primary Care Provider Active Start: June 27, 2024 End: June 27, 2024 Dr. Tha Mcghee MD Attending Provider Active S tart: June 27, 2024 End: June 27, 2024 Dr. Alexandre Yip MD Referring Provider Active Start: June 27, 2024 End: June 27, 2024 Team Status: Inactive Member Role/Relationship Status Dates Dr. Nathanael Maradiaga DO Primary Care Provider Active Start: July 04, 2024 End: July 04, 2024 Dr. Nathanael Maradiaga DO Referring Provider Active Start: July 04, 2024 End: July 04, 2024 Dr. Alexandre Yip MD Attending Provider Active Start: July 04, 2024 End: July 04, 2024 Team Status: Active Member Role/Relationship Status Dates Dr. Nathanael Maradiaga DO Primary Care Provider Active Start: July 10, 2024 Dr. Alexandre Yip MD Attending Provider Active Start: July 10, 2024 Dr. Alexandre Yip MD Referring Provider Active Start: July 10, 2024 Dr. Alexandre Yip MD Other Provider Active Star t: July 10, 2024 Team Status: Inactive Member Role/Relationship Status Dates Dr. Nathanael Maradiaga DO Primary Care Provider Active Start: July 10, 2024 End: July 11, 2024 Dr. Alexandre Yip MD Admit Provider Active Star t: July 10, 2024 End: July 11, 2024 Dr. Alexandre Yip MD Attending Provider Active Start: July 10, 2024 End: July 11, 2024 Dr. Alexandre Yip MD Referring Provider Active Start: July 10, 2024 End: July 11, 2024 Dr. Racheal Neves MD Other Provider Active St art: July 10, 2024 End: July 11, 2024 Dr. Morro Andres MD Other Provider Active Sta rt: July 10, 2024 End: July 11, 2024 Team Status: Active Member Role/Relationship Status Dates Dr. Nathanael Maradiaga DO Primary Care Provider Active Start: July 10, 2024 Dr. lAexandre Yip MD Admit Provider Active Star t: July 10, 2024 Dr. Alexandre Yip MD Referring Provider Active Start: July 10, 2024 Dr. Alexandre Yip MD Other Provider Active Star t: July 10, 2024 Dr. Racheal Neves MD Attending Provider Active Start: July 10, 2024 Dr. Racheal Neves MD Other Provider Active St art: July 10, 2024 Team Status: Active Member Role/Relationship Status Dates Dr. Nathanael Maradiaga DO Primary Care Provider Active Start: July 11, 2024 Dr. Alexandre Yip MD Admit Provider Active Star t: July 11, 2024 Dr. Alexandre Yip MD Other Provider Active Star t: July 11, 2024 Dr. Racheal Neves MD Other Provider Active St art: July 11, 2024 Dr. Morro Andres MD Attending Provider Active Start: July 11, 2024 Dr. Morro Andres MD Other Provider Active Sta rt: July 11, 2024 Team Status: Active Member Role/Relationship Status Dates Dr. Nathanael Maradiaga DO Primary Care Provider Active Start: July 11, 2024 Dr. Alexandre Yip MD Admit Provider Active Star t: July 11, 2024 Dr. Alexandre Yip MD Referring Provider Active Start: July 11, 2024 Dr. Alexandre Yip MD Other Provider Active Star t: July 11, 2024 Dr. Racheal Neves MD Other Provider Active St art: July 11, 2024 Dr. Morro Andres MD Other Provider Active Sta rt: July 11, 2024 ANABELLA Warren Attending Provider Active Star t: July 11, 2024 Team Status: Inactive Member Role/Relationship Status Dates Dr. Nathanael Maradiaga DO Primary Care Provider Active Start: July 25, 2024 End: July 25, 2024 Dr. Nathanael Maradiaga DO Referring Provider Active Start: July 25, 2024 End: July 25, 2024 Dr. Alexandre Yip MD Attending Provider Active Start: July 25, 2024 End: July 25, 2024 Team Status: Inactive Member Role/Relationship Status Dates Dr. Nathanael Maradiaga DO Primary Care Provider Active Start: July 25, 2024 End: July 25, 2024 Dr. Tha Mcghee MD Attending Provider Active S tart: July 25, 2024 End: July 25, 2024 Team Status: Inactive Member Role/Relationship Status Dates Dr. Nathanael Maradiaga DO Primary Care Provider Active Start: August 22, 2024 End: August 22, 2024 Dr. Nathanael Maradiaga DO Referring Provider Active Start: August 22, 2024 End: August 22, 2024 ANABELLA Warren Attending Provider Active Star t: August 22, 2024 End: August 22, 2024 Team Status: Inactive Member Role/Relationship Status Dates Dr. Nathanael Maradiaga DO Primary Care Provider Active Start: August 22, 2024 End: August 22, 2024 Dr. Tha Mcghee MD Attending Provider Active S tart: August 22, 2024 End: August 22, 2024 Team Status: Active Member Role/Relationship Status Dates Dr. Nathanael Maradiaga DO Primary Care Provider Active Start: October 18, 2024 Dr. Nathanael Maradiaga DO Referring Provider Active Start: October 18, 2024 Dr. Alexandre Yip MD Attending Provider Active Start: October 18, 2024 Team Status: Inactive Member Role/Relationship Status Dates Dr. Nathanael Maradiaga DO Primary Care Provider Active Start: October 18, 2024 End: October 18, 2024 Dr. Tha Mcghee MD Attending Provider Active S tart: October 18, 2024 End: October 18, 2024 Team Status: Inactive Member Role/Relationship Status Dates Dr. Nathanael Maradiaga DO Primary Care Provider Active Start: October 18, 2024 End: October 18, 2024 Dr. Nathanael Maradiaga DO Referring Provider Active Start: October 18, 2024 End: October 18, 2024 Dr. Alexandre Yip MD Attending Provider Active Start: October 18, 2024 End: October 18, 2024 [employer] Supervisor Relationship Specialty Start Date End Date Nathanael Maradiaga DO [address] [facility] [place] [address] PCP - General Family Medicine 06/22/21 Team Status: Inactive Member Role/Relationship Status Dates Dr. Nathanael Maradiaga DO Primary Care Provider Active Start: July 25, 2024 End: July 25, 2024 Dr. Nathanael Maradiaga DO Referring Provider Active Start: July 25, 2024 End: July 25, 2024 Dr. Alexandre Yip MD Attending Provider Active Start: July 25, 2024 End: July 25, 2024 Team Status: Inactive Member Role/Relationship Status Dates Dr. Nathanael Maradiaga DO Primary Care Provider Active Start: July 25, 2024 End: July 25, 2024 Dr. Tha Mcghee MD Attending Provider Active S tart: July 25, 2024 End: July 25, 2024 Team Status: Inactive Member Role/Relationship Status Dates Dr. Nathanael Maradiaga DO Primary Care Provider Active Start: August 22, 2024 End: August 22, 2024 Dr. Nathanael Maradiaga DO Referring Provider Active Start: August 22, 2024 End: August 22, 2024 ANABELLA Warren Attending Provider Active Star t: August 22, 2024 End: August 22, 2024 Team Status: Inactive Member Role/Relationship Status Dates Dr. Nathanael Maradiaga DO Primary Care Provider Active Start: August 22, 2024 End: August 22, 2024 Dr. Tha Mcghee MD Attending Provider Active S tart: August 22, 2024 End: August 22, 2024 Team Status: Inactive Member Role/Relationship Status Dates Dr. Nathanael Maradiaga DO Primary Care Provider Active Start: October 18, 2024 End: October 18, 2024 Dr. Nathanael Maradiaga DO Referring Provider Active Start: October 18, 2024 End: October 18, 2024 Dr. Alexandre Yip MD Attending Provider Active Start: October 18, 2024 End: October 18, 2024 Team Status: Inactive Member Role/Relationship Status Dates Dr. Nathanael Maradiaga DO Primary Care Provider Active Start: October 18, 2024 End: October 18, 2024 Dr. Tha Mcghee MD Attending Provider Active S tart: October 18, 2024 End: October 18, 2024 Team Status: Inactive Member Role/Relationship Status Dates Dr. Nathanael Maradiaga DO Primary Care Provider Active Start: November 11, 2024 End: November 11, 2024 Esthela [place] Attending Provider Active Start : November 11, 2024 End: November 11, 2024 Esthela [place] Referring Provider Active Start : November 11, 2024 End: November 11, 2024 Team Status: Inactive Member Role/Relationship Status Dates Dr. Nathanael Maradiaga DO Primary Care Provider Active Start: November 20, 2024 End: November 20, 2024 Dr. Duke Trinh MD Attending Provider Active Start: November 20, 2024 End: November 20, 2024 Dr. Duke Trinh MD Referring Provider Active Start: November 20, 2024 End: November 20, 2024 Goals (unrecognized section and content) Goals may be documented in a n alternate sectionGoals may be documented in an alternate sectionGoals may be documented in an alternate sectionGoals may be documented in an alternate sectionGoals may be documented in an alternate sectionGoals may be documented in an alternate sectionGoals may be documented in an alternate sectionGoals may be documented in an alternate sectionGoals may be documented in an alternate sectionGoals may be documented in an alternate section (unrecognized sect ion and content) No Status Records FoundNo Status Records FoundNo Status Records FoundNo Status Records Found INFORMATION SOURCE (unrecogn ized section and content) DATE CREATED AUTHOR 03/16/2022 [facility] DATE CREATED AUTHOR AUTHOR'S ORGANIZ ATION 12/04/2022 [facility] DATE CREATED AUTHOR AUTHOR'S ORGANIZ ATION 09/15/2024 [facility] DATE CREATED AUTHOR AUTHOR'S ORGANIZ ATION 01/21/2025 [facility] FOR RECORDS PERTAINING TO PATIENTS WHO ARE OR HAVE BEEN ENROLLED IN A CHEMICAL DEPENDENCY/SUBSTANCEABUSE PROGRAM, SOME INFORMATION MAY BE OMITTED. This clinical summary was aggregated from multiple sources. Caution should be exercised in using it in the provision of clinical care. This summary normalizes information from multiple sources, and as a consequence, information in this document may materially change the coding, format and clinical context of patient data. In addition, data may be omitted in some cases. CLINICAL DECISIONS SHOULD BE BASED ON THE PRIMARY CLINICAL RECORDS. [facility] [employer], [facility]. provides no warranty or guarantee of the accuracy or completeness of information in this document.
== END | disposition home or self-care (01) ==
LOC: CT 15:54
PROVIDERS: PCP Family Medicine; Referring Provider Urology; Visit Provider Urology
DX: N20.0 Calculus of kidney (principal)
CPT/HCPCS: 74176

== ENCOUNTER → 2025-01-30 | Outpatient (CLI) | payer MEDICARE, OTHER, SELFPAY ==
[2025-01-30 17:26] LABS: PSA,Total- Diagnostic 1.09 ng/mL (0.00-4.00)
== END | disposition home or self-care (01) ==
PROVIDERS: PCP Family Medicine; Referring Provider Urology; Visit Provider Urology
DX: N40.1 Benign prostatic hyperplasia with lower urinary tract symptoms (principal)
CPT/HCPCS: 36415; 84153

== ENCOUNTER → 2025-03-18 | Outpatient (CLI) | payer MEDICARE, OTHER, SELFPAY ==
--- NOTE | 2025-03-18 16:11 | RAD_ITS ---
PROCEDURE: L/S SPINE MIN 4 VIEWS 03/18/2025 REASON FOR EXAM: SPONDYLOLISTHESIS, LUMBOSACRAL REGION TECHNIQUE: Procedure Code: [id number] Modality: DX Procedure: L/S SPINE MIN 4 VIEWS COMPARISON: None FINDINGS: The visualized sacrum appears to be intact. No fractures are seen. The entire sacrum is not included on this study. There are 5 lumbar-type vertebral bodies below the last set of paired ribs. The vertebral body heights are within normal limits. There is no spondylolysis. Moderate to severe spondylosis of the lumbar spine is noted. There is a approximately 2 mm of retrolisthesis of L3 in relationship to L4. There is approximately 2 mm of anterior listhesis of L4 in relationship to L5. Degenerative disc disease is seen involving the L5-S1 level. There is some bony encroachment of the neural foramina at this level. Facet hypertrophy of the lower lumbar spine is noted. Arteriosclerotic vascular disease of the aorta is noted. Degenerative changes of the lower thoracic spine are noted. RAD/L/S Spine Min 4 Views IMPRESSION: Moderate to severe spondylosis of the lumbar spine is noted. There is a approximately 2 mm of retrolisthesis of L3 in relationship to L4. There is approximately 2 mm of anterolisthesis of L4 in relationship to L5. Degenerative disc disease is seen involving the L5-S1 level. There is some bon y encroachment of the neural foramina at this level. Facet hypertrophy of the lower lumbar spine is noted. Reading Location: [id number]
[2025-03-18 17:45] LABS: Hematocrit 38.1 % (40-54); Hemoglobin 13.0 g/dL (13.0-16.5); Immature Granulocytes Count 0.020 X10^3/uL (0.0-0.0); Mean Corp Hgb Conc 34.1 g/dL (32-36); Mean Corpuscular Volume 92.5 fL (80-94); NRBC Flagged by Analyzer 0 % (0-5); POSITIVE COUNT YES; RBC Distribution Width CV 11.9 % (11.6-14.6); RBC Distribution Width SD 40.6 fl (35.1-43.9); Red Blood Count 4.12 M/mm3 (4.6-6.2); White Blood Count 6.8 K/mm3 (4.4-11.0)
[2025-03-18 18:26] LABS: Magnesium 2.1 mg/dL (1.5-2.2)
[2025-03-18 18:28] LABS: AST(SGOT) 61 U/L (<=37); Alanine Aminotransfer ALT/SGPT 41 U/L (<=46); Albumin, Serum 4.3 g/dL (3.4-4.8); Alkaline Phosphatase 50 U/L (40-129); Anion Gap 16 (5-15); BUN 24 mg/dL (4-19); BUN/Creat Ratio 19.0 RATIO (10-20); Calcium,Total 9.9 mg/dL (7.6-11.0); Carbon Dioxide 20.9 mmol/L (21.0-32.0); Chloride 100 mmol/L (98-108); Globulin 3.0 g/dL (2.2-4.2); Glucose 121 mg/dL (70-99); Potassium 5.7 mmol/L (3.3-5.1)
[2025-03-18 18:48] LABS: Differential Indicated SCAN CRITERIA MET
--- OUTSIDE RECORDS SUMMARY | 2025-03-18 19:01 | XMS RPT_ITS | CCD ---
Author Organization [facility] CliniSyme Care Team Providers Care Sanitary Landfill Operator Name Role Phone Nicholas PATINO, Ra James Unavailable [phone] Nathanael Rojas DO Primary Care Provider No, Physician Primary Care Provider Zhane FREEMAN, PHYSICIAN Primary Care Unavailable LUCAS AARON Attending Unavailable MINH PINTO Referring Zhane TRINH MD, DR DUKE GÓMEZ Attending Darcy TRINH MD, DR DUKE GÓMEZ Attending Dr. Nathanael Martinez DO Primary Care Provider Dr. Nathanael Rojas DO Referring Provider Dr. Alexandre Yip MD Attending Provider Dr. Tha Mcghee MD Attending Provider Dr. Alexandre Yip MD Referring Provider Dr. Alexandre Yip MD Other Provider Phi PATINO, Dr. Schroeder Admit Provider Edinson PATINO, Dr. Racheal Denise Other Provider Dmitry PATINO, Dr. Hooker Other Provider Edinson PATINO, Dr. Racheal Denise Attending Provider Florina Fernandes Attending Provider Nathanael Rojas DO Primary Care Provider Dr. Nathanael Rojas DO Primary Care Provider Dr. Nathanael Rojas DO Referring Provider Dr. Alexandre Yip MD Attending Provider Taz PATINO, Dr. Almazan Attending Provider Dmitry PATINO, Dr. Hooker Attending Provider ASHWINI, NATHANAEL A Primary Care Unavailable JENNY, KARLY Attending Unavailable ASHWINI, NATHANAEL A Primary Care Unavailable ZABRINAJENNYEL P Attending Unavailable JENNY, KARLY Referring Unavailable ASHWINI, NATHANAEL A Primary Care Unavailable ZABRINAJENNYEL P Referring Unavailable JENNYKARLY MELGAR Attending Unavailable Ashwini DO, Dr. Bran Primary Care Provider Taz PATINO, Dr. Almazan Attending Provider Ashwini MCALLISTER, Dr. Bran Referring Provider Phi PATINO, Dr. Schroeder Attending Provider Ashwini MCALLISTER, Dr. Bran Primary Care Provider Ashwini MCALLISTER, Dr. Bran Referring Provider Phi PATINO, Dr. Schroeder Attending Provider Taz PATINO, Dr. Almazan Attending Provider Florina Fernandes Attending Provider [place], Esthela Attending Provider [place], Esthela Referring Provider Doreen PATINO, Dr. Duke Gómez Attending Provider Doreen PATINO, Dr. Duke Gómez Referring Provider [phone] Ashwini, Nathanael Primary Care Unavailable Koram, Racheal Camelia Consulting Unavailable Alexandre Yip Admitting Unavailable Alexandre Yip Attending Unavailable Alexandre Yip Referring Unavailable Morro Andres Consulting Unavailable Ashwini, Nathanael Primary Care Unavailable Doreen, Duke Gómez Attending Unavailable Doreen, Duke Gómez Referring Unavailable Ashwini, Nathanael Primary Care Unavailable Doreen, Duke Gómez Attending Unavailable Doreen, Duke Gómez Referring Unavailable Ashwini, Nathanael Primary Care Unavailable [place], Esthela Referring Unavailable [place], Esthela Attending Unavailable Ashwini, Nathanael Attending Unavailable Ashwini, Nathanael Primary Care Unavailable Ashwini, Nathanael Referring Unavailable Ashwini, Nathanael Referring Unavailable Ashwini, Nathanael Primary Care Unavailable Yip, Alexandre Attending Unavailable Ashwini, Nathanael Primary Care Unavailable Taz, Tha Attending Unavailable Ashwini, Nathanael Referring Unavailable Ashwini, Nathanael Primary Care Unavailable Yip, Alexandre Attending Unavailable Ashwini, Nathanael Primary Care Unavailable Taz, Morton Attending Unavailable Ashwini, Nathanael Referring Unavailable Yip, Alexandre Attending Unavailable Ashwini, Nathanael Primary Care Unavailable Taz, Tha Attending Unavailable Ashwini, Nathanael Primary Care Unavailable Ashwini, Nathanael Primary Care Unavailable Ashwini, Nathanael Referring Unavailable Lashay, Florina Attending Unavailable Ashwini, Nathanael Primary Care Unavailable Taz, Tha Attending Unavailable Yip, Alexandre Referring Unavailable Koram, Racheal Camelia Consulting Unavailable Yip, Alexandre Admitting Unavailable Yip, Alexandre Referring Unavailable Dmitry, Morro Attending Unavailable Ashwini, Nathanael Primary Care Unavailable Dmitry, Morro Consulting Unavailable Yip, Alexandre Consulting Unavailable Ypi, Alexandre Consulting Unavailable Yip, Alexandre Attending Unavailable Ashwini, Nathanael Primary Care Unavailable Yip, Alexandre Referring Unavailable Taz, Morton Attending Unavailable Ashwini, Nathanael Primary Care Unavailable Koram, Racheal Camelia Attending Unavailable Ashwini, Nathanael Primary Care Unavailable DoreenDuke Attending Unavailable DoreenDuke Referring Unavailable Lashay, Florina Attending Unavailable Ashwini, Nathanael Referring Unavailable Yip, Alexandre Attending Unavailable Ashwini, Nathanael Primary Care Unavailable Taz, Tha Attending Unavailable Ashwini, Nathanael Primary Care Unavailable Ashwini, Nathanael Primary Care Unavailable Ashwini, Nathanael Referring Unavailable Yip, Alexandre Attending Unavailable Ashwini, Nathanael Attending Unavailable Ashwini, Nathanael Primary Care Unavailable Ashwini, Nathanael Referring Unavailable Ashwini, Nathanael Attending Unavailable Ashwini, Nathanael Primary Care Unavailable Ashwini, Nathanael Referring Unavailable Allergies Allergy Classification Reported Allergen(s) Allergy Type Date of Onset Reaction(s) Facility (20 sources) Amoxicillin; Translations: [AMOXICILLIN] Drug Allergy 9 Unknown, Hives, Swelling [facility] Work Phone: (1 source) Penicillin Drug Allergy [address] [facility] Work Phone: (1 source) PLANT POLLENS; Translations: [PLANT POLLENS] allergy to substance 9 hay fever [facility] Work Phone: (6 sources) Penicillins; Translations: [PENICILLINS] Propensity to adverse reactions 9 [facility] (2 sources) Penicillins Propensity to adverse reactions 9 [facility] (18 sources) Penicillins Allergy to substance 0 [facility] (15 sources) traMADol; Translations: [TRAMADOL] Drug Allergy 3 Other: See Comments [facility] Comment on above: Severe nightmares (4 sources) Penicillins Propensity to adverse reactions 9 [facility] (1 source) Amoxicillin Drug Allergy 5 [facility] (1 source) Penicillins Drug allergy (disorder) 5 [facility] (1 source) traMADol Drug Allergy 5 [facility] Medications Current Medications Medication Drug Class(es) [...] PO daily April 09, 2024 1:00am Fish Oil-[place]-3 Fatty Acids (FISH OIL) 340-1,000 mg cap (8 sources) take 1 capsule by mouth three times daily Fish Oil-[place]-3 Fatty Acids (FISH OIL) 340-1,000 mg cap Take 1 capsule by mouth three times daily. Active take 1 capsule by [facility] three times daily Fish Oil-[place]-3 Fatty Acids (FISH OIL) 340-1,000 mg cap Take 1 capsule by mouth three times daily. 0 Active Comment on above: Take 1 capsule by [facility] three times daily. fluconazole 150 mg oral [...] BREAKFAST Start: 05-20-2024 take 1 tablet by [facility] twice daily before mealtime glipiZIDE (GLUCOTROL) 5 [...] Active Start: 04-09-2024 take 1 tablet by joanna twice daily Hydralazine 10 mg tablet Active [...] to 4 times daily as needed NAPHAZOLINE-PHENIRAMINE [id number] Terena Hopkins RN nortriptyline 10 mg oral capsule (1 source) Tricyclic Antidepressant Start: 03-09-2022 take 1 capsule by mouth at bedtime nortriptyline (PAMELOR) 10 MG capsule TAKE 1 CAPSULE BY MOUTH AT BEDTIME FOR MIGRAINE 0 03/09/2022 Active [place]-3 Fatty Acids (Fish Oil Concentrate) 1,000 mg capsule (19 sources) Start: 11-01-2018 take 1 capsule by mouth once daily [place]-3 Fatty Acids (Fish Oil Concentrate) 1,000 mg capsule Active 1000 mg PO DAILY November 01, 2018 12:00am Start: 11-01-2018 take 1 capsule by [facility] once daily [place]-3 Fatty Acids (Fish Oil Concentrate) 1,000 mg capsule Active 1000 MG PO DAILY October 31, 2018 11:00pm Start: 11-01-2018 take 1 capsule by [facility] once daily [place]-3 Fatty Acids (Fish Oil Concentrate) 1,000 mg [...] for pain. 0 Active polyethylene glycol 3350 820722 mg / potassium chloride 2970 mg / sodium bicarbonate 6740 mg / sodium chloride 5860 mg / sodium sulfate 68398 mg powder for oral solution (3 sources) [...] oral capsule (20 sources) beta-Adrenergic Yobani Start: 9 take 1 capsule by mouth once daily Propranolol 120 mg capsule,extended release 24 hr Active 120 mg PO DAILY November 01, 2018 12:00am Start: 04-10-2015 propranolol ER (INDERAL LA) 120 mg 24 hr capsule 04/10/2015 Active sennosides, half-way 8.6 mg oral capsule (7 sources) Start: [...] PO DAILY June 26, 2024 12:00am Vitamin F45-Mnxpy Acid 1,000-400 mcg tablet, sublingual (7 sources) Start: 06-26-2024 Vitamin D10-Pesbm Acid 1,000-400 mcg tablet, sublingual Active 1 [...] System Stimulant, Methylxanthine Start: 12-02-2022 End: 04-09-2024 Wcyzkjs-Mmmlwyzjqxuzb-Dcifek ne (Excedrin Extra Strength) 250-250-65 mg tablet [...] times daily as directed as needed HYDROCODONE-ACETAMINOPHEN [id number] Cecil Hopkins RN Start: 08-03-2016 End: 05-21-2019 [...] times daily as directed as needed ASPIRIN-CAFFEINE [id number] Terena Hopkins RN calcium chloride 0.0014 meq/ml [...] 8:14pm Start: 12-02-2022 take 1 tablet by joanna once daily Cyanocobalamin-Liver Extract Active 1 TABLET [...] Start: 05-21-2019 take 1 capsule by mo [facility] twice daily as needed Diphenhydramine Hcl [...] daily as directed as needed DIPHENHYDRAMINE HCL [id number] Cecil Hopkins RN take 1 tablet by joanna every six hours as needed diphenhydrAMINE (BENADRYL ALLERGY) 25 mg tablet Take 25 mg by mouth every 6 hours as needed. Active Comment on above: Take 25 mg by mouth every 6 hours as needed. docusate sodium 50 mg / sennosides, half-way 8.6 mg oral tablet (7 sources) Start: 07-11-2024 End: 07-11-2024 Sennosides-Docusate Sodium (Stimulant Laxative Plus) 8.6-50 mg Tablet Discontinued 2 {tbl} PO TWICE A DAY as needed for constipation 30 0 July 11, 2024 9:20am July 11, 2024 10:52am doxazosin 4 mg oral tablet (1 source) alpha-Adrenergic Yobani Start: 01-03-2019 DOXAZOSIN MESYLATE 4 MG TABS 1 tablet once daily DOXAZOSIN MESYLATE [id number] Terena Hopkins RN 1 ml fentaNYL 0.05 mg/ml [...] directed as needed HYDROCORTISONE BUTYR LIPO BASE [id number] Terena Hopkins RN ibuprofen 600 mg oral tablet [...] TABS 1 tablet once daily MULTIPLE VITAMINS-MINERALS [id number] Cecil Hopkins RN nystatin 073483 unt/ml topical cream (1 source) Polyene Antifungal Start: 01-03-2019 NYSTATIN 10 0000 UNIT/GM CREA apply topically as directed twice daily as needed NYSTATIN [id number] Cecil Hopkins RN Nystatin / Triamcinolone (19 [...] 600mg twice daily OMEGA-3 FATTY ACIDS CAPS [id number] Cecil Hopkins RN phenazopyridine hydrochloride 100 mg [...] 12 hours X 7 days SULFAMETHOXAZOLE-TR IMETHOPRIM [id number] Cecil Hopkins RN tamsulosin hydrochloride 0.4 mg [...] Ureteric colic; Translations: [Unspecified renal colic] Onset: 02-03-2025 06-09-2019 Episodic Diabetes mellitus with complications (4 [...] Chronic Comment on above: CONTROLLED WITH MEDS Hyperplasia of prostate (1 source) Benign prostatic hyperplasia with lower urinary tract symptoms; Translations: [Benign prostatic hyperplasia with lower urinary tract symptoms] Onset: 02-08-2025 Chronic Malaise and fatigue (20 sources) Asthenia; Translations: [...] Test Name Value Interpretation Reference Range Facility PSA,Total- Diagnosticon 01-09 PSA, DIAGNOSTIC 1.09 ng/mL Normal 0.00-4.00 [facility] Comment on above: Result Comment: This test was performed using the [employer] tPSA method. Measured values of a patient??sample can vary depending on the testing procedure used. PSA values determined on patient samples by different testing procedures cannot be used interchangeably. If there is a change in PSA assays while monitoring therapy, sequential testing should be performed to confirm baseline values. Performed By: #### L 501.9940 ####[facility] [address] [place], [place], [address] Abdomen/Pelvis without Conto n 01-23-2025 Abdomen/Pelvis without Cont [facility] Services [address] [place], [place] [address] Abdomen/Pelvis without Cont MR#: [id number] Acct: [id number] Name: TERESA RAINEY Rep #: [id number] : 1950 M 74 From: Alexey Melo MD PCP: Dr. Nathanael Rojas, DO Status: REG CLI Study: Abdomen/Pelvis without Cont Date of Exam: 01/08 10/02 Exam# [id number] Ordering Dr: Duke Trinh MD PROCEDURE: ABDOMEN/PELVIS WITHOUT CONT 01/23/2025 REASON FOR EXAM: CALCULUS OF KINDEY TECHNIQUE: Procedure Code: CTABDPEL Modality: CT Procedure: ABDOMEN/PELVIS WITHOUT CONT Noncontrast technique limits evaluation of the abdominal and pelvic viscera. Coronal and Sagittal reconstruction series were provided. One or more dose reduction techniques were used (e.g., Automated exposure control, adjustment of the mA and/or kV according to patient size, use of iterative reconstruction technique). RADIATION DOSE SUMMARY: CTDlvol: 15.45 mGy DLP: 845.12 mGycm COMPARISON: 11/11/2024 FINDINGS: Lung bases: Clear Liver: Normal size. No obvious mass. Gallbladder: Unremarkable Spleen: Normal size. Pancreas: Normal size. No surrounding inflammation. Adrenals: Unremarkable Kidneys: No obstructive uropathy, or suspicious solid renal lesion, previously noted calcification in the proximal right ureter has either passed or been removed. There are bilateral nonobstructing renal stones unchanged from the previous study. There is stable nonspecific stranding of the perinephric fat. Bladder: Distends normally, there is impingement upon the inferior aspect of the bladder from an enlarged prostate which contains calcifications. No suspicious pelvic mass or adenopathy Bowel: No CTA evidence of obstruction, retained stool noted in majority of the colon with scattered colonic diverticulosis but no CT evidence of acute diverticulitis. Appendix: The appendix contains multiple appendicoliths but is free of inflammation or abnormal distention Lymph nodes: No suspicious mesenteric or retroperitoneal lymph nodes Vasculature: Mild diffuse atherosclerotic calcifications are noted. Peritoneum / Retroperitoneum: No free air or fluid Bones: Degenerative bony changes Small fat containing inguinal hernias. CT/Abdomen/Pelvis without Cont IMPRESSION: No obstructive uropathy or suspicious solid renal lesion, previously noted calcification in the proximal right ureter has either passed or been removed Stable nonobstructing nephrolithiasis No free intraperitoneal fluid, air, or suspicious adenopathy, appendix free of inflammation Mildly enlarged prostate impinging upon the inferior bladder Sigmoid diverticulosis, no CT evidence of acute diverticulitis Reading Location: XRD-[id number]-RO CC: Dr. Duke Trinh MD; Dr. Nathanael Rojas DO Ems Manager: Signed Normal [facility] Coronary Angiography CTon Coronary Angiography CT [facility] Imaging Services [address] [place] [address] 12/26/24 0840 MR#: [id number] Acct: [id number] Name: TERESA RAINEY Rep #: [id number] : 1950 74 From: Tha Mcghee MD PCP: Dr. Nathanael Rojas DO Status:REG REF Y Location: CT Calcium [...] CC: Dr. Tha Mcghee MD; Dr. Nathanael Rojas DO Signed Normal [facility] Limited Chest CT Cardiac Onl yon 12-18-[address] Cardiac Only [facility] [address] [place] [address] Cardiac Only MR#: [id number] Acct: [id number] Name: TERESA RAINEY Rep #: [id number] : 1950 M 74 From: Olvierio Reese PCP: Dr. Nathanael Ashwini, DO Status: REG REF Study: Limited Chest CT Cardiac Only Date of Exam: Exam# [id number] Ordering Dr: Nathanael Rojas DO PROCEDURE: LIMITED CHEST CT CARDIAC ONLY [...] abdomen demonstrates no significant abnormality. Reading Location: [place] [address] CC: Dr. Nathanael Rojas DO Ems Manager: Signed Normal [facility] Abdomen Single Viewon 2024 Ab[address] [facility] Imaging Services [address] [place], [place] [address] Abdomen Single View MR#: [id number] Acct: [id number] Name: TERESA RAINEY Rep #: [id number] : 1950 M 74 From: Rogelio jolley MD PCP: Dr. Nathanael Rojas DO Status: REG [facility] Study: Abdomen Single View Date of Exam: 11/20/24 Exam# [id number] Ordering Dr: Duke Trinh MD PROCEDURE: ABDOMEN [...] renal or ureteral calcification seen. Reading Location: [facility] CC: Dr. Duke Trinh MD; Dr. Nathanael Rojas DO Ems Manager: Signed Normal [facility] Bedside Glucoseon 11-20-2024 FINGERSTICK GLU 133 mg/dL High 74-106 [facility] Comment on above: Result Comment: PHILIP GEMENT OF PATIENT CARE PER NURSING PROTOCOL Performed By: #### L 501.080 #### [facility] [address] [place], [address] Discharge Instructionon 11-08 Discharge Instruction [facility] Medical Records Department [address] [place] [address] Instructions for Home/Discharge Instructions 11/20/24 1558 MR#: [id number] Acct: [id number] Name: TERESA RAINEY Rep #: [id number] : 1950 74 From: Duke Trinh MD PCP: Dr. Nathanael Rojas DO Status:REG SDC Discharge Instructions DC O2, CPAP, BIPAP needs Home O2 Discharge instructions: No Dressing / Incision Discharge Activity: Return to Normal Activity and May Not Drive (while taking narcotic pain medications.) Dressing / Incision Call your doctor if you observe: Fever of 101 or Higher Follow Up Care Please Follow Up With: Duke Trinh MD When: Call [phone] for an appointment Test Results: Test results from this visit will be discussed in further detail at your follow-up appointment, if applicable. Discharge Plan Admission Primary Reason for Your Visit: right ESWL and stent Attending Provider: Duke Trinh Primary Care Provider: Nathanael Rojas Instructions Print Language: [place]ese Discharge Orders/Prescriptions Prescriptions: New ciprofloxacin HCl [Cipro] [...] mg tablet 100 mg PO DAILY vitamin P82-yijnc acid 1,000-400 mcg tablet, sublingual 1 tab sublingual DAILY coenzyme Q10 [Co Q-10] 100 mg capsule 200 mg PO DAILY cyclobenzaprine 10 mg tablet 10 mg PO TID PRN (Reason: spasms) senna 8.6 mg capsule 8.6 mg PO BID PRN (Reason: constipation) Qty: 30 0RF Referrals / Follow Up: Duke Trinh MD [Med Staff - Active Staff] - Nathanael Rojas DO [Primary Care Provider] - Disposition Disposition (needs filled in before D/C Order can be placed): Home, Self Care 11/20/24 2334 Duke Trinh MD CC: Dr. Nathanael Rojas DO Signed Normal [facility] Glucose measurement at [facility] deOrdered By: Duke Trinh on 11-20-2024 Glucose [Mass/Vol] 133 mg/dL High 74-106 [facility] Comment on above: MANAGEMENT OF PATIEN T CARE PER NURSING PROTOCOL MR/POSTOP.ANEchuck 11-20-2024 MR/POSTOP.[facility] Medical Records Department [address] [place] [address] Anesthesia Postop Eval I 11/20/24 1611 MR#: [id number] Acct: [id number] Name: TERESA RANIEY Rep #: [id number] : 1950 74 From: Alvaro Crews CRNA PCP: Dr. Nathanael Rojas DO Status:REG SDC Y Race: C Location: [place] [address] Anesthesia: Postop Eval I Current Vital Signs Temperature: 97.2 F Pulse Rate: 60 Blood Pressure: 168/72 Respiratory Rate: 16 Pulse Ox: 92 Assessment Airway patent: Yes Spontaneous unlabored respirations: Yes nausea: No Vomiting: No Anesthesia Complication: No Fluid Hydration Crystalloid volume administer (ml): 600 Total IV fluid infused: 600 Progress Note Anesthesia document: Postop Eval 1 completed: Yes 11/20/24 1611 Date Alvaro [place] SENIOR FRONT END ENGINEER Cosigner Signature: Date CC: Signed Normal [facility] MR/[id number] 11-20-2024 [facility] Medical Records Department [address] [place] [address] Anesthesia Postop Eval II 11/20/24 1638 MR#: [id number] Acct: [id number] Name: TERESA RAINEY Rep #: [id number] : 1950 74 From: Karen Neves CRNA PCP: Dr. Nathanael Rojas, DO Status:REG SDC Y Race: C Location: [place] [address] 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/24 16:11 SENIOR FRONT END ENGINEER.TNES Spontaneous unlabored Yes 11/20/24 16:11 SENIOR FRONT END ENGINEER.TNES respirations Mental status nausea No 11/20/24 16:11 SENIOR FRONT END ENGINEER.TNES Vomiting No 11/20/24 16:11 SENIOR FRONT END ENGINEER.TNES Anesthesia Postop Eval I: Fluid Summary Crystalloid volume administer 600 11/20/24 16:11 SENIOR FRONT END ENGINEER.TNES (ml) Colloids volume administered ( ml) Blood Product volume administered (ml) Total IV fluid infused 600 11/20/24 16:11 SENIOR FRONT END ENGINEER.TNES Anesthesia Postop Eval I: Summary Notes Anesthesia Complication No 11/20/24 16:11 SENIOR FRONT END ENGINEER.TNES Anesthesia Complication Comment: Post-operative progress note Anesthesia: Postop Eval II Evaluation Mental status: Awake Pain Level: 2 nausea: No Vomiting: No 11/20/24 1639 Date Karen Edinson SENIOR FRONT END ENGINEER Cosigner Signature: Date CC: Signed Normal [facility] Operative Reporton 5 Operative Report [facility] Medical Records Department [address] [place] [address] Operative Report 11/20/24 1558 MR#: [id number] Acct: [id number] Name: TERESA RAINEY Rep #: [id number] : 1950 74 From: Duke Trinh MD PCP: Dr. Nathanael Rojas, DO Status:[facility] Location: [place] [address] Operative Report (Standard) Operative Information Date of Procedure: 11/20/24 Pre-Operative Diagnosis: Right kidney stone Post-Operative Diagnosis: The same Surgery/Procedure Performed: Cystoscopy right stent placement right ESWL recreational facilities motel manager: No Type of Anesthesia: General RN Documented [...] in usual sterile fashion. Using a 21 Thai rigid cystourethroscope the entire length of the urethra was normal then went into the bladder. Identified the trigone the left and right ureteral orifice. I then cannulated the right ureteral orifice and advanced a wire up into the kidney. I then backloaded a 5 Thai open ended catheter over the wire and injected contrast to delineate the anatomy. After the retrograde was performed I then used fluoroscopic images and guidance to advanced a wire up into the kidney and over the 0.038 glidewire I advanced a 6 Thai by 26 cm double pigtail stent. I [...] CC: Dr. Duke Trinh MD; Dr. Nathanael Rojas DO Signed [facility] MR/PAT.MIGUELINA 11-14-2024 MR/PAT.[facility] Medical Records Department [address] [place] [address] PAT - Anesthesia 11/14/24 1134 MR#: [id number] Acct: [id number] Name: TERESA RAINEY Rep #: [id number] : 1950 74 From: Melo Charles MD PCP: Dr. 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 door builder Female No 11/14/24 11:02 HX of Motion [...] 08/22/24 14:31 Respiratory Assessment Respiratory Assessment - kiln door builder: Respiratory Tract Infection Hx - kiln door builder Hx Respiratory Tract Infection No 11/14/24 11:02 STOP Sleep Apnea STOP Sleep Apnea - kiln door builder: STOP Sleep Apnea - kiln door builder Hx Hypertension Yes 11/14/24 11:02 Hx Sleep [...] Tobacco Use History Tobacco Use History - kiln door builder: Tobacco Use History - kiln door builder Tobacco Use Smoking Status Never smoker 11/14/24 11:02 Hx Tobacco Use Yes 11/14/24 11:02 Years Smoking Packs Smoked per Day Smoking Cessation Date was within the last 15 years Hx Smoking Cessation Date Hx Smoking Cessation Counseling Hematologic Medial History Hematologic Hx - kiln door builder: 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 Normal [facility] Abdomen/Pelvis without Conto n 11-11-2024 Abdomen/Pelvis without Cont [facility] Services [address], [place] [id number] Abdomen/Pelvis without Cont MR#: [id number] Acct: [id number] Name: TERESA RAINEY Rep #: [id number] : 1950 M 74 From: Rogelio jolley MD PCP: Dr. Nathanael Rojas, DO Status: REG CLI Study: Abdomen/Pelvis without Cont Date of Exam: 08/02 Exam# [id number] Ordering Dr: Esthela Leo PROCEDURE: ABDOMEN/PELVIS WITHOUT [...] its lumen. Clinical correlation recommended. Reading Location: [facility] CC: Dr. Nathanael Rojas DO; Esthela Leo Ems Manager: Signed Normal [facility] Cerv Spine 2 or 3 Viewson Cerv Spine 2 or 3 Views [facility] Imaging Services [address] [place], [place] [id number] Cerv Spine 2 or 3 Views MR#: [id number] Acct: [id number] Name: TERESA RAINEY Rep #: [id number] : 1950 M 74 From: Nathanael Moran MD PCP: Dr. Nathanael Rojas DO Status: DEP AMB Study: Cerv Spine 2 or 3 Views Date of Exam: 10/18/24 Exam# [id number] Ordering Dr: Alexandre Yip MD EXAM: XR [...] IMPRESSION: Postoperative changes as above. Reading Location: [facility] CC: Dr. Alexandre Yip MD; Dr. Nathanael Rojas DO Ems Manager: Signed Normal [facility] Orthopedic Visit Reporton Orthopedic Visit Report [facility] [address] [place] [address] [address] [place], [place] [id number] OFFICE VISIT Date of Service: 10/18/24 MR#: [id number] Acct: [id number] Name: TERESA RAINEY Rep #: [id number] : 1950 Provider: Dr. Alexandre Yip MD Age/Sex: 74/M Location: [facility] Status: Signed Intake Vital Signs 08/22/24 14:31 [...] PO DAILY 05/20/19 10/18/24 Hi story naphazoline 0.52777 %-pheniramine 2 drp OP PRN PRN Allergies [...] by me, Dr. Alexandre Yip MD 10/18/24 1301. Part of today???s visit was documented by [...] with c (more content not included)... Normal [facility] CNOVon 09-13-2024 CNOV Office Visit (GENSWS ) TERESA RAINEY ([id number]) 1950 Date Time Provider Department 09/13/24 3:00 PM KARLY ALVARADO During your visit today, we recorded the following information about you: Karly Alvarado APRN.CNP 09/13/2024 3:08 PM Signed FOLLOW UP VISIT - ENDOSCOPY Teresa Rainey 1950 [id number] REFERRING PHYSICIAN: No referring provider defined for [...] Date Reviewed: 09/13/2024 Reviewed by: Karly Alvarado APRN.TABLE ATTENDANT - Fully Assessed Reason for Visit: Follow [...] every 6 hours as needed. - Fish Oil-[place]-3 Fatty Acids (FISH OIL) 340-1,000 mg cap Take 1 capsule by mouth three times daily. Problem List As Of Date 09/13/2024 Noted Resolved Family history of colon cancer [Z80.0] 06/02/2014 Mixed hyperlipidemia [E78.2] 08/03/2021 History of colonic polyps [Z86.0100] 09/06/2024 Screen for colon cancer [Z12.11] 09/06/2024 Encounter Status:Closed by KARLY ALVARADO on 09/13/24 Normal [facility] [id number] 09-06-2024 [id number] HNO ID: [id number] Author: MEME BROWER RN Service: ? Author Type: Registered Nurse Type: [id number] Filed: 09/06/2024 10:12 Note Text: The patient received a copy of Colonoscopy discharge instructions that contain information for how to contact the physician who performed the procedure and when to seek medical care. Normal [facility] Colonoscopyon 09-06-2024 [facility] Patient Name: Teresa Rainey Procedure [...] be scheduled. Procedure Code(s): --- Professional --- 60110, Colonoscopy, flexible; with removal of tumor(s), polyp(s), or other lesion(s) by snare technique G0500, Moderate sedation services provided by the same physician or other qualified health managed care provider performing a gastrointestinal endoscopic service that sedation supports, requiring the presence of an independent trained observer to assist in the monitoring of the patient's level of consciousness and physiological status; initial 15 minutes of intra-service time; patient age 5 years or older (additional time may be reported with 18879, as appropriate) Diagnosis Code(s): --- Professional --- Z12.11, Encounter for screening for malignant neoplasm of colon Z86.0101, Personal history of adenomatous and serrated colon polyps D12.2, Benign neoplasm of ascending colon K64.8, Other hemorrhoids CPT copyright 2020 [employer]. All rights reserved. The codes documented in this report are preliminary and upon transfer station operator review may be revised to meet current compliance requirements. Attending Participation: I personally performed the entire procedure. Scope In: 9:40:22 AM Scope Out: 9:53:47 AM MD Minh Spear MD 09/06/2024 9:57:38 AM This report has been signed electronically by Minh Gerber MD Number of Addenda: 0 Note Initiated On: 09/06 (more content not included)... Normal [facility] Colonoscopy Study observatio non 09-06-2024 [facility] Gastrointestinal Endoscopy Patient Name: Teresa Rainey Procedure [...] September 2021. Referring Physician: Karly Alvarado (Referring ) Medicines: Fentanyl 50 micrograms IV, Midazolam 5 [...] be scheduled. Procedure Code(s): --- Professional --- 73626, Colonoscopy, flexible; with removal of tumor(s), polyp(s), or other lesion(s) by snare technique G0500, Moderate s (more content not included)... [facility] Radiology Study observation (narrative) [facility] HISTORY PHYSICALon HISTORY PHYSICAL HNO ID: [id number] Author: MINH GERBER MD Service: General Surgery Author Type: Physician Type: H&P Filed: 09/06/2024 09:31 Note Text: HISTORY AND PHYSICAL Teresa Rainey : 1950 REFERRING PHYSICIAN: Minh Gerber III [address] [facility] [address] CHIEF COMPLAINT: Patient presents with: Consult HPI: [...] colonoscopy was 09/[address] Gerber at [facility]. Sedation:Fentanyl 50 micrograms IV, Midazolam 4 mg [...] mouth every 6 hours as needed. Fish Oil-[place]-3 Fatty Acids (FISH OIL) 340-1,000 mg cap [...] 152/79, pulse 82, height 167.6 cm (5' 6), weight 96.6 kg (213 lb), SpO2 98%. [...] STUDIES: As (more content not included)... Normal [facility] Pathology biopsy report Raymond (Tiss)on 09-06-2024 AP DISCLAIMER Normal [facility] Comment on above: Order Comment: Speci men Type: TISSUE SPECIMEN Ordering Facility: [facility] Address: [address] [place] [address] Result Comment: Raffi lawrence Developed Test (LDT) Disclaimer: Performance characteristics of immunohistochemical, immunofluorescent, and chromogenic in-situ hybridization tests have been determined by the performing laboratory within [facility]'s [facility] Pathology and Laboratory Medicine Department ([facility], [facility], [facility], [facility], [facility], [facility], or [facility]) in a manner consistent with CLIA requirements. One or more of these tests may not have been cleared or approved by the FDA. [facility] is regulated under CLIA as qualified to perform high-complexity testing. These tests are used for clinical purposes. These should not be regarded as investigational or for research. Positive and negative controls stain appropriately. Performed By: #### 6 6121-5 #### [facility] CLIA [id number] [address] [place] [address] OF [facility] CLIA [id number] [address] [place] [address] [place] CASE REPORT Normal [facility] Comment on above: Order Comment: Speci men Type: TISSUE SPECIMEN Ordering Facility: [facility] Address: [address] [place] [address] Result Comment: Surg ical Pathology Report Case: [id number] Authorizing Provider: Minh Gerber MD Collected: 09/06/2024 09:47 AM Ordering Location: Ambulatory Surgery Received: 09/06/2024 01:55 PM Pathologist: Jordin Bryant MD Specimen: Colon, Ascending Polyp Performed By: #### 6 6121-5 #### [facility] CLIA [id number] [address] [place] [address] [place] [facility] CLIA [id number] [address] [place] [address] [place] FINAL DIAGNOSIS Normal [facility] Comment on above: Order Comment: Speci men Type: TISSUE SPECIMEN Ordering Facility: [facility] Address: [address] [place] [address] Result Comment: A. A scending colon polyp, biopsy: - Tubular adenoma. JRG/lacho 09/09/2024 at 0944 EDT Performed By: #### 6 6121-5 #### [facility] CLIA [id number] [address] [place] [address] [place] [facility] CLIA [id number] [address] [place] [address] [place] FINAL PERFORMING LAB Normal [facility] Comment on above: Order Comment: Speci men Type: TISSUE SPECIMEN Ordering Facility: [facility] Address: [address] [place] [address] Result Comment: Diag nostic interpretation performed at: [facility], [address] [place] [address] CLIA# [id number] [employer] Supervisor: Luis Bell MD Performed By: #### 6 6121-5 #### [facility] CLIA [id number] [address] [place] [address] [place] [facility] CLIA [id number] [address] [place] [address] [place] GROSS DESCRIPTION Normal [facility] Comment on above: Order Comment: Speci men Type: TISSUE SPECIMEN Ordering Facility: [facility] Address: [address] [place] [address] Result Comment: A. C olon, Ascending Polyp Received in formalin are multiple pieces of humphreys, soft tissue aggregating to 2.0 x 0.2 x 0.1 cm. Totally submitted in one cassette. Gross examination performed at [facility], [address] [place] [address], [place] [address] FFS 09/06/2024 11:44 PM Performed By: #### 6 6121-5 #### [facility] CLIA [id number] [address] [place] [id number] [facility] CLIA [id number] [address] [facility] [address] [facility] Cerv Spine 2 or 3 Viewson Cerv Spine 2 or 3 Views [facility] Imaging Services [address] [place], [place] [id number] Cerv Spine 2 or 3 Views MR#: [id number] Acct: [id number] Name: TERESA RAINEY Rep #: [id number] : 1950 M 74 From: Crescencio Puckett MD PCP: Dr. Nathanael Rojas DO Status: DEP AMB Study: Cerv Spine 2 or 3 Views Date of Exam: 08/22/24 Exam# [id number] Ordering Dr: Florina Metz PROCEDURE: CERV SPINE [...] C6 appears intact and anatomic. Reading Location: [id number] CC: ANABELLA Warren; Dr. Nathanael Rojas DO Ems Manager: Signed Normal [facility] Orthopedic Visit Reporton Orthopedic Visit Report [place] [facility] [address] [place] [address] [address] [place] [address] OFFICE VISIT Date of Service: 08/22/24 MR#: [id number] Acct: [id number] Name: TERESA RAINEY Rep #: [id number] : 1950 Provider: ANABELLA Warren Age/Sex: 74/M Location: [facility] Status: Signed Intake Vital Signs 04/09/24 12:56 [...] PO DAILY 05/20/19 08/22/24 Hi story naphazoline 0.15641 %-pheniramine 2 drp OP PRN PRN Allergies [...] General General: (more content not included)... Normal [facility] CNOVon 08-12-2024 CNOV Office Visit (GENSWS ) TERESA RAINEY ([id number]) 1950 M Date Time Provider Department 08/12/24 2:30 PM KARLY ALVARADO GENGRETCHENS During your visit today, we recorded the following information about you: Pulse Blood pressure Weight Height 82/minute 152/79 96.6 kg 1.676 m Karly Alvarado APRN.TODD 08/12/2024 2:53 PM Signed HISTORY AND PHYSICAL Teresa Rainey : 1950 REFERRING PHYSICIAN: Minh Gerber III [address] [place] [address] CHIEF COMPLAINT: Patient presents with: Consult HPI: [...] colonoscopy was 09/[address] Gerber at [facility]. Sedation:Fentanyl 50 micrograms IV, Midazolam 4 mg [...] mouth every 6 hours as needed. Fish Oil-[place]-3 Fatty Acids (FISH OIL) 340-1,000 mg cap [...] 152/79, pulse 82, height 167.6 cm (5' 6), weight 96.6 kg (213 lb), SpO2 98%. [...] palpable masses. (more content not included)... Normal [facility] Cerv Spine 2 or 3 Viewson Cerv Spine 2 or 3 Views [facility] Services [address] [place], [place] [id number] Cerv Spine 2 or 3 Views MR#: [id number] Acct: [id number] Name: TERESA RAINEY Rep #: [id number] : 1950 M 73 From: Kevin mendoza MD PCP: Dr. Nathanael Rojas DO Status: DEP AMB Study: Cerv Spine 2 or 3 Views Date of Exam: 07/25/24 Exam# [id number] Ordering Dr: Florina Metz PROCEDURE: CERV SPINE [...] evidence of an acute abnormality. Reading Location: [place] [address] CC: ANABELLA Warren; Dr. Nathanael Rojas DO Ems Manager: Signed Normal [facility] Orthopedic Visit Reporton Orthopedic Visit Report [facility] [address] [place] [address] [address] [place] [address] OFFICE VISIT Date of Service: 07/25/24 MR#: [id number] Acct: [id number] Name: TERESA RAINEY Rep #: [id number] : 1950 Provider: Dr. Alexandre Yip MD Age/Sex: 73/M Location: [facility] Status: Signed Intake Vital Signs 04/09/24 12:56 [...] PO DAILY 05/20/19 07/25/24 Hi story naphazoline 0.78071 %-pheniramine 2 drp OP PRN PRN Allergies [...] by me, Dr. Alexandre Yip MD 07/25/24 3311. Part of today???s visit was documented by [...] incision well-heal (more content not included)... Normal [facility] Anion gap in Serum or Plasma Ordered By: Florina Metz on 07-11-2024 Anion gap [Moles/Vol] 19 mmol/L High 5-15 [facility] BUN/creatinine ratioOrdered By: Florina Metz on 07-11-2024 Urea nitrogen/Creatinine [Mass ratio] 17.0 mg/mg 10- [facility] Basic Metabolic Profile (BMP )on 07-11-2024 BUN/CRE 17.0 RATIO Normal - [facility] Comment on above: Performed By: #### L 100.0500, L500.2500 #### [facility] [address] [place], [address] Calcium [Mass/Vol] 9.2 mg/dL Normal 7.6-11.0 [facility] Comment on above: Performed By: #### L 100.0500, L500.2500 #### [facility] [address] [place], [address] Chloride [Moles/Vol] 100 mmol/L Normal 98-108 [facility] Comment on above: Performed By: #### L 100.0500, L500.2500 #### [facility] [address] [place], [address] CO2 [Moles/Vol] 18.9 mmol/L Low 21.0-32.0 [facility] Comment on above: Performed By: #### L 100.0500, L500.2500 #### [facility] [address] [place], [address] Creatinine [Mass/Vol] 1.14 mg/dL Normal 0.70-1.20 [facility] Comment on above: Performed By: #### L 100.0500, L500.2500 #### [facility] [address] [place], [address] ECRCL 65.02 ml/min Normal 50-250 [facility] Comment on above: Performed By: #### L 100.0500, L500.2500 #### [facility] [address] [place], [address] GAP 19 High 5-15 [facility] Comment on above: Performed By: #### L 100.0500, L500.2500 #### [facility] [address] [place], [address] GFR/1.73 sq M.predicted among non-blacks MDRD (S/P/Bld) [Vol rate/Area] 68 mL/min/{1.73_m2} Normal >60 [facility] Comment on above: Result Comment: mL/m in/1.73m2 CKD-EPI Creatinine Equation (2020) Performed By: #### L 100.0500, L500.2500 #### [facility] [address] [place], [address] Glucose [Mass/Vol] 199 mg/dL High 70-99 [facility] Comment on above: Performed By: #### L 100.0500, L500.2500 #### [facility] [address] [place], [address] Potassium [Moles/Vol] 4.6 mmol/L Normal 3.3-5.1 [facility] Comment on above: Result Comment: Hemo lysis present, Results??could be affected. ?? Performed By: #### L 100.0500, L500.2500 #### [facility] [address] [place], [address] Sodium [Moles/Vol] 138 mmol/L Normal 133-145 [facility] Comment on above: Performed By: #### L 100.0500, L500.2500 #### [facility] [address] [place], [address] Urea nitrogen [Mass/Vol] 19 mg/dL Normal 4-19 [facility] Comment on above: Performed By: #### L 100.0500, L500.2500 #### [facility] [address] [place], [address] Bedside Glucoseon 07-11-2024 FINGERSTICK GLU 213 mg/dL High 74-106 [facility] Comment on above: Result Comment: PHILIP GEMENT OF PATIENT CARE PER NURSING PROTOCOL Performed By: #### L 501.080 #### [facility] [address] [place], [address] FINGERSTICK GLU 210 mg/dL High 74-106 [facility] Comment on above: Result Comment: PHILIP GEMENT OF PATIENT CARE PER NURSING PROTOCOL Performed By: #### L 501.080 #### [facility] [address] [place], [address] CBC-Complete Blood Cnt No Di ffon 07-11-2024 Erythrocyte distribution width (RBC) [Ratio] 12.6 % Normal 11.6-14.6 [facility] Comment on above: Performed By: #### L 100.0500, L500.2500 #### [facility] [address] [place], [address] Hematocrit (Bld) [Volume fraction] 35.7 % Low 40-54 [facility] Comment on above: Performed By: #### L 100.0500, L500.2500 #### [facility] [address] [place], [address] Hemoglobin (Bld) [Mass/Vol] 12.3 g/dL Low 13.0-16.5 [facility] Comment on above: Performed By: #### L 100.0500, L500.2500 #### [facility] [address] [place], [address] MCH (RBC) [Entitic mass] 31.7 pg Normal 27.0-32.0 [facility] Comment on above: Performed By: #### L 100.0500, L500.2500 #### [facility] [address] [place], [address] MCHC (RBC) [Mass/Vol] 34.5 g/dL Normal 32-36 [facility] Comment on above: Performed By: #### L 100.0500, L500.2500 #### [facility] [address] [place], [address] MCV (RBC) [Entitic vol] 92.0 fL Normal 80-94 [facility] Comment on above: Performed By: #### L 100.0500, L500.2500 #### [facility] [address] [place], [address] Platelet mean volume (Bld) [Entitic vol] 10.8 fL Normal 6.2-12.0 [facility] Comment on above: Performed By: #### L 100.0500, L500.2500 #### [facility] [address] [place], [address] Platelets (Bld) [#/Vol] 240 10*3/uL Normal 150-450 [facility] Comment on above: Performed By: #### L 100.0500, L500.2500 #### [facility] [address] [place], [address] RBC (Bld) [#/Vol] 3.88 10*6/uL Low 4.6-6.2 [facility] Comment on above: Performed By: #### L 100.0500, L500.2500 #### [facility] [address] [place], [address] RDW SD 42.1 fl Normal 35.1-43.9 [facility] Comment on above: Performed By: #### L 100.0500, L500.2500 #### [facility] [address] [place], [address] WBC (Bld) [#/Vol] 14.4 10*3/uL High 4.4-11.0 [facility] Comment on above: Performed By: #### L 100.0500, L500.2500 #### [facility] [address] [place], [address] Carbon dioxide, total [Moles /volume] in Central venous bloodOrdered By: Florina Metz on 07-11-2024 CO2 [Moles/Vol] 18.9 mmol/L Low 21.0-32.0 [facility] Cerv Spine 2 or 3 Viewson Cerv Spine 2 or 3 Views [facility] [address] [place] [address] Cerv Spine 2 or 3 Views MR#: [id number] Acct: [id number] Name: TERESA RAINEY Rep #: [id number] : 1950 M 73 From: Crescencio Puckett MD PCP: Dr. Nathanael Rojas, DO Status: ADM SILVANO Study: Cerv Spine 2 or 3 Views Date of Exam: 07/11/24 Exam# [id number] Ordering Dr: Florina Metz PROCEDURE: CERV SPINE [...] prevertebral soft tissue swelling/thickening. Left anterior neck [place] drain, safety pin and cervical collar noted. The visualized apices appear clear. RAD/Cerv Spine 2 or 3 Views IMPRESSION: Status post anterior cervical disc fusion with intervertebral disc spacers C4 through C6 appears anatomic and intact as above. No fracture or malalignment identified. Reading Location: [id number] CC: ANABELLA Warren; Dr. Nathanael Rojas DO Ems Manager: Signed Normal [facility] Chloride assayOrdered By: Valentine Metz on 07-11-2024 Chloride [Moles/Vol] 100 mmol/L 98-108 [facility] Erythrocyte distribution wid th (RBC) [Ratio]Ordered By: Florina Metz on 07-11-2024 Erythrocyte distribution width (RBC) [Entitic vol] 42.1 fL 35.1-43.9 [facility] Erythrocyte distribution wid th ratioOrdered By: Florina Metz on 07-11-2024 Erythrocyte distribution width (RBC) [Ratio] 12.6 % 11.6-14.6 [facility] Erythrocyte distribution wid th standard deviationOrdered By: Florina Metz on 07-11-2024 Erythrocyte distribution width (RBC) [Ratio] 42.1 fl 35.1-43.9 [facility] Estimation of creatinine paola aranceOrdered By: Florina Metz on 07-11-2024 Estimated Creatinine Clearance Calc 65.02 ml/min 50-250 [facility] GFR/1.73 sq M.predicted doc g non-blacks MDRD (S/P/Bld) [Vol rate/Area]Ordered By: Florina Metz on 07-11-2024 Estimated GFR (MDRD) Non-Af Amer 68 >60 [facility] Comment on above: mL/min/1.73m2 CKD-EP I Creatinine Equation (2020) Glomerular filtration rate ( GFR) estimation/1.73 sq m using serum, plasma, or whole bOrdered By: Florina Metz on 07-11-2024 GFR/1.73 sq M.predicted among non-blacks MDRD (S/P/Bld) [Vol rate/Area] 68 mL/min/{1.73_m2} >60 [facility] Comment on above: mL/min/1.73m2 CKD-EP I Creatinine Equation (2020) Glucose measurement at bedsi deOrdered By: Alexandre Yip on 07-11-2024 Bedside Glucose (Misc Panel) 213 mg/dL High 74-106 [facility] Comment on above: MANAGEMENT OF PATIEN T CARE PER NURSING PROTOCOL Glucose [Mass/Vol] 213 mg/dL High 74-106 [facility] Comment on above: MANAGEMENT OF PATIEN T CARE PER NURSING PROTOCOL Hematocrit Auto (Bld) [Volum e fraction]Ordered By: Florina Metz on 07-11-2024 Hematocrit (Bld) [Volume fraction] 35.7 % Low 40-54 [facility] Hemoglobin measurementOrdere d By: Florina Metz on 07-11-2024 Hemoglobin (Bld) [Mass/Vol] 12.3 g/dL Low 13.0-16.5 [facility] MCV (mean corpuscular volume ) determinationOrdered By: Florina Metz on 07-11-2024 MCV (RBC) [Entitic vol] 92.0 fL 80-94 [facility] Mean corpuscular hemoglobin (MCH) determinationOrdered By: Florina Metz on 07-11-2024 MCH (RBC) [Entitic mass] 31.7 pg 27.0-32.0 [facility] Mean corpuscular hemoglobin concentration (MCHC) determinationOrdered By: Florina Metz on 07-11-2024 MCHC (RBC) [Mass/Vol] 34.5 g/dL 32-36 [facility] Mean platelet volume determi nationOrdered By: Florina Metz on 07-11-2024 Platelet mean volume (Bld) [Entitic vol] 10.8 fL 6.2-12.0 [facility] Platelet countOrdered By: Valentine Metz on 07-11-2024 Platelets (Bld) [#/Vol] 240 10*3/uL 150-450 [facility] Potassium (Unsp spec) [Mass/ Vol]Ordered By: Florina Metz on 07-11-2024 Potassium [Moles/Vol] 4.6 mmol/L 3.3-5.1 [facility] Comment on above: Hemolysis present, R esults could be affected. Potassium measurement (mass/ volume)Ordered By: Florina Metz on 07-11-2024 Potassium (Unsp spec) [Mass/Vol] 4.6 mmol/L 3.3-5.1 [facility] Comment on above: Hemolysis present, R esults could be affected. RBC Auto (Bld) [#/Vol]Ordere d By: Florina Metz on 07-11-2024 RBC (Bld) [#/Vol] 3.88 10*6/uL Low 4.6-6.2 [facility] Serum creatinine measurement (mass/volume)Ordered By: Florina Metz on 07-11-2024 Creatinine [Mass/Vol] 1.14 mg/dL 0.70-1.20 [facility] Serum glucose measurement (m ass/volume)Ordered By: Florina Metz on 07-11-2024 Glucose [Mass/Vol] 199 mg/dL High 70-99 [facility] Serum or plasma calcium jonathan urement (mass/volume)Ordered By: Florina Metz on 07-11-2024 Calcium [Mass/Vol] 9.2 mg/dL 7.6-11.0 [facility] Serum or plasma urea nitroge n measurement (mass/volume)Ordered By: Florina Metz on 07-11-2024 Urea nitrogen [Mass/Vol] 19 mg/dL 4-19 [facility] Sodium levelOrdered By: Kacy Metz on 07-11-2024 Sodium [Moles/Vol] 138 mmol/L 133-145 [facility] White blood cell (WBC) count Ordered By: Florina Metz on 07-11-2024 WBC (Bld) [#/Vol] 14.4 10*3/uL High 4.4-11.0 [facility] Bedside Glucoseon 07-10-2024 FINGERSTICK GLU 186 mg/dL High 74-106 [facility] Comment on above: Result Comment: PHILIP MIRANDA OF PATIENT CARE PER NURSING PROTOCOL Performed By: #### L 501.080 #### [facility] [address] [place], [address] FINGERSTICK GLU 266 mg/dL High 74-106 [facility] Comment on above: Result Comment: PHILIP MIRANDA OF PATIENT CARE PER NURSING PROTOCOL Performed By: #### L 501.080 ####[facility] [address] [place], [address] Cerv Spine 2 or 3 Viewson Cerv Spine 2 or 3 Views [facility] Imaging Services [address] [place], [place] [address] Cerv Spine 2 or 3 Views MR#: [id number] Acct: [id number] Name: TERESA RAINEY Rep #: [id number] : 1950 M 73 From: Rogelio jolley MD PCP: Dr. Nathanael Rojas DO Status: [facility] Study: Cerv Spine 2 or 3 Views Date of Exam: 07/10/24 Exam# [id number] Ordering Dr: Alexandre Yip MD PROCEDURE: Intraoperative [...] plate and screw fixation device. Reading Location: [facility] CC: Dr. Alexandre Yip MD; Dr. Nathanael Rojas DO Ems Manager: Signed Normal [facility] MR/POSTOP.ANEon 07-10-2024 MR/POSTOP.[facility] Medical Records Department [address] [place] [address] Anesthesia Postop Eval I 07/10/24 1058 MR#: [id number] Acct: [id number] Name: TERESA RAINEY Rep #: [id number] : 1950 73 From: Chon Epps CRNA PCP: Dr. Nathanael Rojas, DO Status:REG SDC Y Race: C Location: [place] [address] Anesthesia: Postop Eval I Current Vital Signs [...] Epps CRNA Cosigner Signature: Date CC: Signed Normal [facility] MR/UUHWFIDD3ga 07-10-2024 [facility] Medical Records Department [address] [place] [address] Anesthesia Postop Eval II 07/10/24 1129 MR#: [id number] Acct: [id number] Name: TERESA RAINEY NIDIA Rep #: [id number] : 1950 73 From: Jann Winston MD PCP: Dr. 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 FRONT END ENGINEER.PKEL Spontaneous unlabored Yes 07/10/24 10:59 SENIOR FRONT END ENGINEER.PKEL respirations Mental status Asleep 07/10/24 10:59 SENIOR FRONT END ENGINEER.PKEL nausea No 07/10/24 10:59 SENIOR FRONT END ENGINEER.PKEL Vomiting No 07/10/24 10:59 SENIOR FRONT END ENGINEER.PKEL Anesthesia Postop Eval I: Fluid Summary Crystalloid volume administer 2,400 07/10/24 10:59 SENIOR FRONT END ENGINEER.PKEL (ml) Colloids volume administered ( ml) Blood Product volume administered (ml) Total IV fluid infused 2,400 07/10/24 10:59 SENIOR FRONT END ENGINEER.PKEL Anesthesia Postop Eval I: Summary Notes Anesthesia Complication No 07/10/24 10:59 SENIOR FRONT END ENGINEER.PKEL Anesthesia Complication Comment: Post-operative progress note Anesthesia: Postop Eval II Evaluation Mental status: Awake Pain Level: 0 nausea: No Vomiting: No 07/10/24 1129 Date Jann Catrachito Amaya Signature: Date CC: Signed Normal [facility] Operative Reporton 5 Operative Report [facility] Medical Records Department [address] [place] [address] Operative Report 07/10/24 1044 MR#: [id number] Acct: [id number] Name: TERESA RAINEY Rep #: [id number] : 1950 73 From: Alexandre Yip MD PCP: Dr. 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 Cart Attendant: Florina Metz Tasks completed by or first assist registered nurse: Closing, Removing tissue, Implanting device, Hemostasis: Electrocautery [...] all DRAINS/GRAFTS/IMPLANTS that apply: Drains Drain details: [place] , Graft Graft details: Structural allograft cortical cancellous strut, DBX and Implanted device Implanted device details: [employer] [place] Elite plate instrumentation Estimated Blood Loss: 30 cc Specimen collected: No Description of surgery: Preoperative diagnosis: C4-6 disc degeneration with stenosis, radiculomyelopathy, prior C6-7 fusion, kyphosis Postoperative diagnosis: Same Name of procedure: C4-6 anterior cervical discectomy and fusion with plate instrumentation - Anterior cervical fusion C4-5, CPT code 21740 - Anterior plate instrumentation C4-6, CPT code 90004/59 - Anterior cervical fusion C5-6, CPT code 46194/51 -C4-5 structural allograft bone with DBX, CPT code 26480 -C5-6 structural allograft bone with DBX, CPT code 12043 Attending surgeon: Alexandre Yip M.D. Anesthesia: Gen. endotracheal Estimated blood loss: 30 mL Complications: None Instrumentation used: [employer] [place] Elite plate, LASR corticocancellous block Indications: The [...] Disc fragments were removed with the pituitary. Rosalia pins were placed in C4 and C5 [...] given. 7 (more content not included)... Normal [facility] Orthopedic Visit Reporton Orthopedic Visit Report [facility] [address] [place] [address] OFFICE VISIT Date of Service: 07/04/24 MR#: [id number] Acct: [id number] Name: TERESA RAINEY Rep #: [id number] : 1950 Provider: Dr. Alexandre Yip MD Age/Sex: 73/M Location: [facility].DJ Status: Signed Intake Vital Signs 04/09/24 12:56 [...] PO DAILY 05/20/19 07/04/24 Hi story naphazoline 0.29066 %-pheniramine 2 drp OP PRN PRN Allergies [...] by me, Dr. Alexandre Yip MD 07/04/24 6797. Part of today???s visit was documented by Wilolw Kline ATC, acting as scribe. TERESA RAINEY [...] for about (more content not included)... Normal [facility] Hepatitis A AB, Totalon 06-09 HEPATITIS A,TOT Negative Normal Negative [facility] Comment on above: Result Comment: Comm ent: The HAV total antibody assay detects both IgG and IgM but does not differentiate between them. A negative result suggests susceptibility to infection. A positive result could be due to vaccination, previously resolved infection or active infection. Testing for HAV IgM should be performed if active HAV infection is suspected. [employer] offers profiles that will automatically reflex positive HAV total antibody results to IgM (e.g., panel #[id number] HAV Antibody w/ Rfx). Performed at: [facility] [address] [id number] Family Day Care Provider: Kamlesh Cleveland PhD, Phone: [phone] Performed By: #### L 8270.6562, L33706006, L3890.7741, L500.2500, L100.0100, L3100.0300, BTSPAT, M100.651 ####[facility] [address] [facility] [place], [place], [id number] Electrocardiogram reportOrde red By: Tha Mcghee on 06-28-[address] [facility] Cardiovascular Services [address] [place] [address] 12 Lead EKG 06/27/24 1254 MR#: [id number] Acct: [id number] Name: TERESA RAINEY Rep #:[id number] : 1950 73 From: Tha Mcghee MD Attending Dr: Dr. Alexanrde Yip MD Status: PRE [facility] Ordering Dr: Alexandre Yip MD Date: Location[place] [facility] Sex: M C Admitted: Test Reason : [...] Abnormal ECG Confirmed by TAZ PATINO, THA ([id number]), advertising editor JERRI HOU ([id number]) on 55:48:38 AM Referred By: Alexandre Yip Confirmed By: THA MCGHEE MD 06/28/24 0548 Date _ Tha Mcghee MD CC: Dr. Alexandre Yip MD; Dr. Nathanael Rojas, DO ~ Signed [facility] Work Phone: MRSA/SAID NASAL SCREENon MRSA+SAID SCRN Reason for Exam: Surgery Copy of report sent to Infection Control Printer [id number] 06/28/24 1358 VSICK. MRSA MRSA Negative S. AUREUS S. aureus PositiveA Normal [facility] Comment on above: Performed By: #### L 3890.6202, L3890.6006, L3890.6301, L500.2500, L100.0100, L3100.0300, BTSPAT, M100.651 ####[facility] [address] [place], [address] 12 Lead EKGon 06-27-[address] [facility] [address] [place] [address] 12 Lead EKG 06/27/24 1254 MR#: [id number] Acct: [id number] Name: TERESA RAINEY Rep #: [id number] : 1950 73 From: Tha Mcghee MD Attending Dr: Dr. Alexandre Yip MD Status: PRE [facility] Order[place]: Alexandre Yip MD Date: 06/27/24 Location[place] [facility] Sex: M C Admitted: Test Reason : [...] Abnormal ECG Confirmed by TAZ PATINO, THA ([id number]), advertising editor JERRI HOU ([id number]) on 06/28/2024 5:48:38 AM Referred By: Alexandre Yip Confirmed By: THA MCGHEE MD 06/28/24 0548 Date Tha Mcghee MD CC: Dr. Alexandre Yip MD; Dr. Nathanael Rojas, DO Signed Normal [facility] Absolute lymphocyte countOrd ered By: Alexandre Yip on 06-27-2024 Lymphocytes Auto (Unsp spec) [#/Vol] 2.24 10*3/uL 0.83-4.51 [facility] Absolute neutrophil countOrd ered By: Alexandre Yip on 06-27-2024 Neutrophils (Bld) [#/Vol] 4.2 10*3/uL 2.0-7.7 [facility] Automated lymphocyte count a s percentage of total leukocytesOrdered By: Alexandre Yip on 06-27-2024 Lymphocytes/100 WBC Auto (Unsp spec) 29.2 % 19-41 [facility] Basic Metabolic Profile (BMP )on 06-27-2024 BUN/CRE 23.0 RATIO High 01-27 [facility] Comment on above: Performed By: #### L 3890.6202, L3890.6006, L3890.6301, L500.2500, L100.0100, L3100.0300, BTSPAT, M100.651 ####[facility] [address] [place], [address] Calcium [Mass/Vol] 9.6 mg/dL Normal 7.6-11.0 [facility] Comment on above: Performed By: #### L 3890.6202, L3890.6006, L3890.6301, L500.2500, L100.0100, L3100.0300, BTSPAT, M100.651 ####[facility] [address] [place], [place], [phone](233) Chloride [Moles/Vol] 104 mmol/L Normal 98-108 [facility] Comment on above: Performed By: #### L 3890.6202, L3890.6006, L3890.6301, L500.2500, L100.0100, L3100.0300, BTSPAT, M100.651 ####[facility] [address] [place], [place], [phone]) CO2 [Moles/Vol] 19.5 mmol/L Low 21.0-32.0 [facility] Comment on above: Performed By: #### L 3890.6202, L3890.6006, L3890.6301, L500.2500, L100.0100, L3100.0300, BTSPAT, M100.651 ####[facility] [address] [place], [place], [id number] Creatinine [Mass/Vol] 1.10 mg/dL Normal 0.70-1.20 [facility] Comment on above: Performed By: #### L 3890.6202, L3890.6006, L3890.6301, L500.2500, L100.0100, L3100.0300, BTSPAT, M100.651 ####[facility] [address] [place], [place], [id number] GAP 16 High 5-15 [facility] Comment on above: Performed By: #### L 3890.6202, L3890.6006, L3890.6301, L500.2500, L100.0100, L3100.0300, BTSPAT, M100.651 ####[facility] [address] [place], [address] GFR/1.73 sq M.predicted among non-blacks MDRD (S/P/Bld) [Vol rate/Area] 71 mL/min/{1.73_m2} Normal >60 [facility] Comment on above: Result Comment: mL/m in/1.73m2 CKD-EPI Creatinine Equation (2020) Performed By: #### L 3890.6202, L3890.6006, L3890.6301, L500.2500, L100.0100, L3100.0300, BTSPAT, M100.651 ####[facility] [address] [place], [address] Glucose [Mass/Vol] 243 mg/dL High 70-99 [facility] Comment on above: Performed By: #### L 3890.6202, L3890.6006, L3890.6301, L500.2500, L100.0100, L3100.0300, BTSPAT, M100.651 ####[facility] [address] [place], [address] Potassium [Moles/Vol] 4.6 mmol/L Normal 3.3-5.1 [facility] Comment on above: Performed By: #### L 3890.6202, L3890.6006, L3890.6301, L500.2500, L100.0100, L3100.0300, BTSPAT, M100.651 ####[facility] [address] [place], [address] Sodium [Moles/Vol] 139 mmol/L Normal 133-145 [facility] Comment on above: Performed By: #### L 3890.6202, L3890.6006, L3890.6301, L500.2500, L100.0100, L3100.0300, BTSPAT, M100.651 ####[facility] [address] [place], [address] Urea nitrogen [Mass/Vol] 25 mg/dL High 4-19 [facility] Comment on above: Performed By: #### L 3890.6202, L3890.6006, L3890.6301, L500.2500, L100.0100, L3100.0300, BTSPAT, M100.651 ####[facility] [address] [place], [address] Basophil percentageOrdered B y: Alexandre Yip on 06-27-2024 Basophils/100 WBC (Bld) 1.0 % 0-1 [facility] CBC W/Diff, Automatedon 06-09 Absolute Lymph 2.24 X10 3/uL Normal 0.83-4.51 [facility] Comment on above: Performed By: #### L 3890.6202, L3890.6006, L3890.6301, L500.2500, L100.0100, L3100.0300, BTSPAT, M100.651 ####[facility] [address] [place], [address] Absolute Neut 4.2 X10 3/uL Normal 2.0-7.7 [facility] Comment on above: Performed By: #### L 3890.6202, L3890.6006, L3890.6301, L500.2500, L100.0100, L3100.0300, BTSPAT, M100.651 ####[facility] [address] [place], [address] Basophils/100 WBC (Bld) 1.0 % Normal 0-1 [facility] Comment on above: Performed By: #### L 3890.6202, L3890.6006, L3890.6301, L500.2500, L100.0100, L3100.0300, BTSPAT, M100.651 ####[facility] [address] [place], [address] Eosinophils/100 WBC (Bld) 5.1 % High 0-5 [facility] Comment on above: Performed By: #### L 3890.6202, L3890.6006, L3890.6301, L500.2500, L100.0100, L3100.0300, BTSPAT, M100.651 ####[facility] [address] [place], [address] Erythrocyte distribution width (RBC) [Ratio] 12.2 % Normal 11.6-14.6 [facility] Comment on above: Performed By: #### L 3890.6202, L3890.6006, L3890.6301, L500.2500, L100.0100, L3100.0300, BTSPAT, M100.651 ####[facility] [address] [place], [address] Hematocrit (Bld) [Volume fraction] 41.2 % Normal 40-54 [facility] Comment on above: Performed By: #### L 3890.6202, L3890.6006, L3890.6301, L500.2500, L100.0100, L3100.0300, BTSPAT, M100.651 ####[facility] [address] [place], [address] Hemoglobin (Bld) [Mass/Vol] 14.3 g/dL Normal 13.0-16.5 [facility] Comment on above: Performed By: #### L 3890.6202, L3890.6006, L3890.6301, L500.2500, L100.0100, L3100.0300, BTSPAT, M100.651 ####[facility] [address] [place], [address] IG% 0.400 Normal 0.0-0.9 [facility] Comment on above: Result Comment: IG% - Immature Granulocytes (promyelocytes, myelocytes and metamyelocytes) > 1% indicates that a LEFT SHIFT is Present. Performed By: #### L 3890.6202, L3890.6006, L3890.6301, L500.2500, L100.0100, L3100.0300, BTSPAT, M100.651 ####[facility] [address] [place], [address] Lymphocytes/100 WBC (Bld) 29.2 % Normal 19-41 [facility] Comment on above: Performed By: #### L 3890.6202, L3890.6006, L3890.6301, L500.2500, L100.0100, L3100.0300, BTSPAT, M100.651 ####[facility] [address] [place], [address] MCH (RBC) [Entitic mass] 31.7 pg Normal 27.0-32.0 [facility] Comment on above: Performed By: #### L 3890.6202, L3890.6006, L3890.6301, L500.2500, L100.0100, L3100.0300, BTSPAT, M100.651 ####[facility] [address] [place], [address] MCHC (RBC) [Mass/Vol] 34.7 g/dL Normal 32-36 [facility] Comment on above: Performed By: #### L 3890.6202, L3890.6006, L3890.6301, L500.2500, L100.0100, L3100.0300, BTSPAT, M100.651 ####[facility] [address] [place], [address] MCV (RBC) [Entitic vol] 91.4 fL Normal 80-94 [facility] Comment on above: Performed By: #### L 3890.6202, L3890.6006, L3890.6301, L500.2500, L100.0100, L3100.0300, BTSPAT, M100.651 ####[facility] [address] [place], [address] Monocytes/100 WBC (Bld) 9.1 % Normal 0-10 [facility] Comment on above: Performed By: #### L 3890.6202, L3890.6006, L3890.6301, L500.2500, L100.0100, L3100.0300, BTSPAT, M100.651 ####[facility] [address] [place], [address] Neutrophils/100 WBC (Bld) 55.2 % Normal 47-70 [facility] Comment on above: Performed By: #### L 3890.6202, L3890.6006, L3890.6301, L500.2500, L100.0100, L3100.0300, BTSPAT, M100.651 ####[facility] [address] [place], [address] Nucleated RBC (Bld) [#/Vol] 0 10*3/uL Normal 0-5 [facility] Comment on above: Performed By: #### L 3890.6202, L3890.6006, L3890.6301, L500.2500, L100.0100, L3100.0300, BTSPAT, M100.651 ####[facility] [address] [place], [address] Platelet mean volume (Bld) [Entitic vol] 10.6 fL Normal 6.2-12.0 [facility] Comment on above: Performed By: #### L 3890.6202, L3890.6006, L3890.6301, L500.2500, L100.0100, L3100.0300, BTSPAT, M100.651 ####[facility] [address] [place], [address] Platelets (Bld) [#/Vol] 253 10*3/uL Normal 150-450 [facility] Comment on above: Performed By: #### L 3890.6202, L3890.6006, L3890.6301, L500.2500, L100.0100, L3100.0300, BTSPAT, M100.651 ####[facility] [address] [place], [address] RBC (Bld) [#/Vol] 4.51 10*6/uL Low 4.6-6.2 [facility] Comment on above: Performed By: #### L 3890.6202, L3890.6006, L3890.6301, L500.2500, L100.0100, L3100.0300, BTSPAT, M100.651 ####[facility] [address] [place], [place], [phone](586) RDW SD 40.7 fl Normal 35.1-43.9 [facility] Comment on above: Performed By: #### L 3890.6202, L3890.6006, L3890.6301, L500.2500, L100.0100, L3100.0300, BTSPAT, M100.651 ####[facility] [address] [place], [address] WBC (Bld) [#/Vol] 7.7 10*3/uL Normal 4.4-11.0 [facility] Comment on above: Performed By: #### L 3890.6202, L3890.6006, L3890.6301, L500.2500, L100.0100, L3100.0300, BTSPAT, M100.651 ####[facility] [address] [place], [address] Eosinophil percentageOrdered By: Alexandre Yip on 06-27-2024 Eosinophils/100 WBC (Bld) 5.1 % High 0-5 [facility] HBV surface Ab Ql (S)Ordered By: Alexandre Yip on 06-27-2024 Hepatitis B Surface Antibody Non-Reactive [facility] Comment on above: <8.5 mIU/mL: Non-Caroline ctive8.5<= x <11.5 mIU/mL: Indeterminate>=11.5 mIU/mL: Reactive Non Reactive: Inconsistent with immunity less than <10 mIU/mL Reactive: Consistent with immunity greater than or equal to 10 mIU/mL Hemoglobin A1con 06-27-2024 HbA1c (Bld) [Mass fraction] 7.5 % Normal <=5.6 [facility] Comment on above: Performed By: #### L 501.5200, L501.9985 ####[facility] [address] [place], [address] Hemoglobin A1c percentageOrd ered By: Bobby Mendez on 06-27-2024 HbA1c (Bld) [Mass fraction] 7.5 % >5.7 [facility] Hepatitis A virus total anti body assayOrdered By: Alexandre Yip on 06-27-2024 Hepatitis A Antibody Total Negative Negative [facility] Comment on above: Comment: The HAV tot [...] HAVtotal antibody results to IgM (e.g., panel #[id number] HAVAntibody w/ Rfx).Performed at: [address] [id number] Director: Kamlesh Cleveland PhD, Phone: [phone] Hepatitis C antibodyOrdered By: Alexandre Yip on 06-27-2024 Hepatitis C Antibody Non-Reactive Nonreactive [facility] Comment on above: Reactive: Presumptiv e evidence of antibodies to HCV. Follow CDC recommendations for supplemental testing.Non-Reactive: Antibodies to HCV were not detected; does not exclude the possibility of exposure to HCVReactive Results are presumptive evidence of antibodies to HCV. Follow CDC recommendations for supplemental testing.Order confirmation testing: HCV Quant by PCR testing - HCVPCR #[id number] Non Reactive: < 0.8 Equivocal: >/= 0.8 to < 1.0 Reactive: >/= 1.0The CDC requires that a reactive/equivocal HCV antibody result be sent out for confirmation. HCV Quant by PCR testing. Immature granulocytes/100 WB C Auto (Bld)Ordered By: Alexandre Yip on 06-27-2024 Immature granulocytes/100 WBC (Bld) 0.400 % 0.0-0.9 [facility] Comment on above: IG% - Immature Granu locytes (promyelocytes, myelocytes and metamyelocytes) > 1% indicates that a LEFT SHIFT is Present. L3890.6006on 06-27-2024 HIV Non-Reactive Normal Nonreactive [facility] Comment on above: Result Comment: Non- Reactive Reactive Repeatedly reactive samples must be confirmed according to CDC recommended confirmatory algorithms. The subresults for either HIVAG or AHIV can be used as an aid in the selection of the confirmation algorithm for reactive samples. Send out specimens with Reactive results to [facility] for confirmation. Order the HIV antibody detection and differentiation: lc#[id number] Performed By: #### L 3890.6202, L3890.6006, L3890.6301, L500.2500, L100.0100, L3100.0300, BTSPAT, M100.651 ####[facility] [address] [place], [place], [id number] L3890.6202on 06-27-2024 HEP B Surf Ab Non-Reactive Normal [facility] Comment on above: Result Comment: <8.5 mIU/mL: Non-Reactive 8.5<= x <11.5 mIU/mL: Indeterminate >=11.5 mIU/mL: Reactive Non Reactive: Inconsistent with immunity less than <10 mIU/mL Reactive: Consistent with immunity greater than or equal to 10 mIU/mL Performed By: #### L 3890.6202, L3890.6006, L3890.6301, L500.2500, L100.0100, L3100.0300, BTSPAT, M100.651 ####[facility] [id number] [place], [address] [id number] 06-27-2024 Hepatitis C Ab Non-Reactive Normal Nonreactive [facility] Comment on above: Result Comment: Reac tive: Presumptive evidence of antibodies to HCV. Follow CDC recommendations for supplemental testing. Non-Reactive: Antibodies to HCV were not detected; does not exclude the possibility of exposure to HCV Reactive Results are presumptive evidence of antibodies to HCV. Follow CDC recommendations for supplemental testing. Order confirmation testing: HCV Quant by PCR testing - HCVPCR #[id number] Non Reactive: < 0.8 Equivocal: >/= 0.8 to < 1.0 Reactive: >/= 1.0 The CDC requires that a reactive/equivocal HCV antibody result be sent out for confirmation. HCV Quant by PCR testing. Performed By: #### L 3890.6202, L3890.6006, L3890.6301, L500.2500, L100.0100, L3100.0300, BTSPAT, M100.651 ####[facility] [id number], [address] Lymphocytes Auto (Unsp spec) [#/Vol]Ordered By: Alexandre Yip on 06-27-2024 Lymphocytes (Bld) [#/Vol] 2.24 10*3/uL 0.83-4.51 [facility] Lymphocytes/100 WBC Auto (Un sp spec)Ordered By: Alexandre Yip on 06-27-2024 Lymphocytes/100 WBC (Bld) 29.2 % 19-41 [facility] MR/PAT.ANEon 06-27-2024 MR/PAT.ANE [facility] Medical Records Department [address] [place] [address] PAT - Anesthesia 06/27/24 1649 MR#: [id number] Acct: [id number] Name: TERESA RAINEY Rep #: [id number] : 1950 73 From: Bobby Mendez MD PCP: Dr. 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 door builder Female No 06/26/24 09:09 HX of Motion [...] 04/09/24 12:56 Respiratory Assessment Respiratory Assessment - kiln door builder: Respiratory Tract Infection Hx - kiln door builder Hx Respiratory Tract Infection No 06/26/24 09:09 STOP Sleep Apnea STOP Sleep Apnea - kiln door builder: STOP Sleep Apnea - kiln door builder Hx Hypertension Yes: CONTROLLED WITH MED 06/26/24 [...] Tobacco Use History Tobacco Use History - kiln door builder: Tobacco Use History - kiln door builder Tobacco Use Smoking Status Current every day smoker 06/26/24 09:09 Hx Tobacco Use Yes 06/26/24 09:09 Years Smoking Packs Smoked per Day Smoking Cessation Date was within the last 15 years Hx Smoking Cessation Date Hx Smoking Cessation Counseling Hematologic Medial History Hematologic Hx - kiln door builder: 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 Normal [facility] MRSA screenOrdered By: Joe Yip on 06-27-2024 MRSA DNA SUJATA+probe Ql (Unsp spec) [facility] Nasal Screen MRSA/MSSA [facility] Magnesiumon 06-27-2024 Magnesium [Mass/Vol] 2.8 mg/dL High 1.5-2.2 [facility] Comment on above: Performed By: #### L 501.5200, L501.9985 #### [facility] [address] [place], [place], [address] Magnesium (Unsp spec) [Mass/ Vol]Ordered By: Bobby Mendez on 06-27-2024 Magnesium [Mass/Vol] 2.8 mg/dL High 1.5-2.2 [facility] Magnesium measurement (mass/ volume)Ordered By: Bobby Mendez on 06-27-2024 Magnesium (Unsp spec) [Mass/Vol] 2.8 mg/dL High 1.5-2.2 [facility] Monocyte percentageOrdered B y: Alexandre Yip on 06-27-2024 Monocytes/100 WBC (Bld) 9.1 % 0-10 [facility] Neutrophil percentageOrdered By: Alexandre Yip on 06-27-2024 Neutrophils/100 WBC (Bld) 55.2 % 47-70 [facility] No Panel InformationOrdered By: Alexandre Yip on 06-27-2024 HIV (1&2) Antibody Non-Reactive Nonreactive [facility] Comment on above: Non-ReactiveReactive Repeatedly reactive samples must be confirmed according to CDC recommended confirmatory algorithms. The subresults for either HIVAG or AHIV can be used as an aid in the selection of the confirmation algorithm for reactive samples.Send out specimens with Reactive results to [facility] for confirmation.Order the HIV antibody detection and differentiation: #[id number] Nucleated red blood cell per centageOrdered By: Alexandre Yip on 06-27-2024 Nucleated RBC/100 WBC (Bld) [Ratio] 0 % 0-5 [facility] Serum hepatitis B virus surf brenton antibody detectionOrdered By: Alexandre Yip on 06-27-2024 HBV surface Ab Ql (S) Non-Reactive [facility] Comment on above: <8.5 mIU/mL: Non-[place]averly ctive8.5<= x <11.5 mIU/mL: Indeterminate>=11.5 mIU/mL: Reactive Non Reactive: Inconsistent with immunity less than <10 mIU/mL Reactive: Consistent with immunity greater than or equal to 10 mIU/mL Type AND Screen - PAT ONLYon 06-27-2024 ABO and Rh group Nom (Bld) Blood group B Rh(D) positive Normal [facility] Comment on above: Order Comment: Surge ry Date: 07/10/24Reason for Laboratory Test [id number]/ANNSCERVICAL DISC FUSION C4-5,5-6 Performed By: #### L 3890.6202, L3890.6006, L3890.6301, L500.2500, L100.0100, L3100.0300, BTSPAT, M100.651 ####[facility] [id number], [address] Cerv Spine 4 or 5 Viewson Cerv Spine 4 or 5 Views [facility] Imaging Services [address] [place], [place] [address] Cerv Spine 4 or 5 Views MR#: [id number] Acct: [id number] Name: TERESA RAINEY Rep #: [id number] : 1950 M 73 From: Nathanael Moran MD PCP: Dr. Nathanael Rojas DO Status: DEP AMB Study: Cerv Spine 4 or 5 Views Date of Exam: 05/17/24 Exam# [id number] Ordering Dr: Alexandre Yip MD EXAM: XR [...] the cervical spine as described. Reading Location: [facility] CC: Dr. Alexandre Yip MD; Dr. Nathanael Ashwini, DO Ems Manager: Signed Normal [facility] Orthopedic Visit Reporton Orthopedic Visit Report [facility] [facility] [address] [place] [address] OFFICE VISIT Date of Service: 05/17/24 MR#: [id number] Acct: [id number] Name: TERESA RAINEY Rep #: [id number] : 1950 Provider: Dr. Alexandre Yip MD Age/Sex: 73/M Location: [facility] Status: Signed Intake Vital Signs 04/09/24 12:56 [...] PO DAILY 05/20/19 05/17/24 Hi story naphazoline 0.69027 %-pheniramine 2 drp OP PRN PRN Allergies [...] by me, Dr. Alexandre Yip MD 05/17/24 7862. Part of today???s visit was documented by [...] LUMBAR Musculos (more content not included)... Normal [facility] L/S Spine Min 4 Viewson 03-12 L/S Spine Min 4 Views [facility] [address] [place] [address] L/S Spine Min 4 Views MR#: [id number] Acct: [id number] Name: TERESA RAINEY Rep #: [id number] : 1950 M 73 From: Sumeet Orona MD PCP: Dr. Nathanael Rojas, DO Status: DEP AMB Study: L/S Spine Min 4 Views Date of Exam: 04/09/24 Exam# [id number] Ordering Dr: Florina Metz [id number] STUDY: X-RAY - LUMBAR SPINE REASON FOR [...] EST , CC: ANABELLA Warren; Dr. Nathanael Rojas DO Ems Manager: Signed Normal [facility] Orthopedic Visit Reporton Orthopedic Visit Report [facility] [address] [place] [address] OFFICE VISIT Date of Service: 04/09/24 MR#: [id number] Acct: [id number] Name: TERESA RAINEY Rep #: [id number] : 1950 Provider: Dr. Alexandre Yip MD Age/Sex: 73/M Location: [facility] Status: Signed Intake Vital Signs 01/02/23 13:02 [...] ea PO DAILY 05/20/19 04/09/24 History naphazoline 0.84576 %-pheniramine 2 drp OP PRN PRN Allergies [...] by me, Dr. Alexandre Yip MD 04/09/24 6015. Part of today???s visit was documented by [...] exam of (more content not included)... Normal [facility] No Panel InformationOrdered By: Esthela Leo on 08-07-2023 Prostate Specific Antigen Screen 2.51 ng/mL 0.00-4.00 [facility] Comment on above: This test was perfor med using the TPSA assay method for the[employer] Water chemistry system. Values obtained with differentassay methods cannot be used interchangably.When changing PSA assays in the course of monitoring apatient, additional sequential testing should be carriedout to confirm baseline values. Absolute lymphocyte countOrd ered By: Blas Copeland on 01-02-2023 Lymphocytes Auto (Unsp spec) [#/Vol] 1.64 10*3/uL 0.83-4.51 [facility] Basophil percentageOrdered B y: Blas Copeland on 01-02-2023 Basophils/100 WBC (Bld) 0.4 % 0-1 [facility] Bilirubin [Mass/Vol] 1.00 mg/dL 0.20-1.00 [facility] Comment on above: For patients on eltr ombopag therapy, use of Dimension Temple TBIL is not recommended. Chloride [Moles/Vol] 100 mmol/L 98-107 [facility] Eosinophils/100 WBC (Bld) 2.0 % 0-5 [facility] Glucose [Mass/Vol] 258 mg/dL 74-106 [facility] Comment on above: Glucose result great er than or equal to 200 mg/dLsuggests DIABETES MELLITUS per A.D.A. criteria. Neutrophils (Bld) [#/Vol] 6.7 10*3/uL 2.0-7.7 [facility] Neutrophils/100 WBC (Bld) 70.8 % 47-70 [facility] Potassium [Moles/Vol] 3.7 mmol/L 3.5-5.1 [facility] Protein [Mass/Vol] 7.1 g/dL 6.4-8.2 [facility] Sodium [Moles/Vol] 134 mmol/L 136-145 [facility] WBC (Bld) [#/Vol] 9.4 10*3/uL 4.4-11.0 [facility] Basophil percentage 5-10 SEEN /hpf 0-5 [facility] Bilirubin Test strip Ql (U)O rdered By: Blas Copeland on 01-02-2023 Bilirubin Ql (U) Negative Negative [facility] Blood erythrocytes count (nu mber/volume)Ordered By: Blas Copeland on 01-02-2023 RBC (Bld) [#/Vol] 3.75 10*6/uL 4.6-6.2 [facility] Blood hemoglobin measurement (mass/volume)Ordered By: Blas Copeland on 01-02-2023 Hemoglobin (Bld) [Mass/Vol] 11.6 g/dL 13.0-16.5 [facility] Blood lymphocytes/100 leukoc ytesOrdered By: Blas Copeland on 01-02-2023 Lymphocytes/100 WBC (Bld) 17.4 % 19-41 [facility] Blood monocytes/100 leukocyt esOrdered By: Blas Copeland on 01-02-2023 Monocytes/100 WBC (Bld) 8.9 % 0-10 [facility] Blood platelet mean volumeOr dered By: Blas Copeland on 01-02-2023 Platelet mean volume (Bld) [Entitic vol] 10.5 fL 6.2-12.0 [facility] Determination of erythrocyte mean corpuscular volume (MCV)Ordered By: Blas Copeland on 01-02-2023 MCV (RBC) [Entitic vol] 92.3 fL 80-94 [facility] Hematocrit Auto (Bld) [Volum e fraction]Ordered By: Blas Copeland on 01-02-2023 Hematocrit (Bld) [Volume fraction] 34.6 % 40-54 [facility] Ketones Test strip Ql (U)Ord ered By: Blas Copeland on 01-02-2023 Ketones Ql (U) 15 mg/dl Negative [facility] Laboratory - Chemistry and C hemistry - challengeOrdered By: Blas Copeland on 01-02-2023 ALP [Catalytic activity/Vol] 61 U/L 45-117 [facility] ALT [Catalytic activity/Vol] 22 U/L 16-61 [facility] CO2 [Moles/Vol] 25.0 mmol/L 21.0-32.0 [facility] Globulin (S) [Mass/Vol] 4.2 g/dL 2.2-4.2 [facility] Urea nitrogen/Creatinine [Mass ratio] 15.1 mg/mg 10-20 [facility] - Hematology and Cell countsOrdered By: Blas Copeland on 09-25-2023 Erythrocyte distribution width (RBC) [Entitic vol] 40.7 fL 35.1-43.9 [facility] Erythrocyte distribution width (RBC) [Ratio] 12.0 % 11.6-14.6 [facility] Immature granulocytes/100 WBC (Bld) 0.500 % 0.0-0.9 [facility] Comment on above: IG% - Immature Granu locytes (promyelocytes, myelocytes and metamyelocytes) > 1% indicates that a LEFT SHIFT is Present. MCH (RBC) [Entitic mass] 30.9 pg 27.0-32.0 [facility] Nucleated RBC/100 WBC (Bld) [Ratio] 0 % 0-5 [facility] MCHC Auto (RBC) [Mass/Vol]Or dered By: Blas Copeland on 01-02-2023 MCHC (RBC) [Mass/Vol] 33.5 g/dL 32-36 [facility] Mucus LM Ql (Urine sed)Order ed By: Blas Copeland on 01-02-2023 Mucus Ql (Urine sed) 0 SEEN /hpf [facility] Nitrite Test strip Ql (U)Ord ered By: Blas Copeland on 01-02-2023 Nitrite Ql (U) Negative Negative [facility] No Panel InformationOrdered By: Blas Copeland on 01-02-2023 Estimated Creatinine Clearance Calc 56.84 ml/min [facility] Estimated GFR (MDRD) Amer 88 mL/min >60 [facility] Comment on above: GFR Calc Estimated GFR (MDRD) Non-Af Amer 73 mL/min >60 [facility] Comment on above: Non- GFR Calc Platelets bldOrdered By: Dave Copeland on 01-02-2023 Platelets (Bld) [#/Vol] 225 10*3/uL 150-450 [facility] Protein Test strip Ql (U)Ord ered By: Blas Copeland on 01-02-2023 Protein Ql (U) 30 mg/dl Negative [facility] Serum or plasma albumin jonathan urement (mass/volume)Ordered By: Blas Copeland on 01-02-2023 Albumin [Mass/Vol] 2.9 g/dL 3.2-5.0 [facility] Serum or plasma albumin/glob ulin mass ratioOrdered By: Blas Copeland on 01-02-2023 Albumin/Globulin [Mass ratio] 0.7 {ratio} 0.9-2.4 [facility] Serum or plasma calcium jonathan urement (mass/volume)Ordered By: Blas Copeland on 01-02-2023 Calcium [Mass/Vol] 8.9 mg/dL 8.5-10.1 [facility] Serum or plasma creatinine m easurement (mass/volume)Ordered By: Blas Copeland on 01-02-2023 Creatinine [Mass/Vol] 1.06 mg/dL 0.70-1.30 [facility] Comment on above: The validity of the calculated GFR & GFRAA in patients over 70 years has not been determined. Clinical correlation is essential. Serum or plasma urea nitroge n measurement (mass/volume)Ordered By: Blas Copeland on 01-02-2023 Urea nitrogen [Mass/Vol] 16 mg/dL 7-18 [facility] Squamous epithelial cells de tection in urine sediment by light microscopyOrdered By: Blas Copeland on 01-02-2023 Epithelial cells.squamous LM Ql (Urine sed) 0 SEEN /hpf 0-5 [facility] Thin prep Papanicolaou smear with manual screeningOrdered By: Blas Copeland on 01-02-2023 Thin prep Papanicolaou smear with manual screening 10 U/L 15-37 [facility] Thin prep Papanicolaou smear with manual screening 9 5-15 [facility] Urine blood detectionOrdered By: Blas Copeland on 01-02-2023 RBC Ql (U) 10 /ul Negative [facility] RBC Ql (U) Not Reportable [facility] Urine clarityOrdered By: Dave Copeland on 01-02-2023 Clarity (U) Clear Clear [facility] Urine color determinationOrd ered By: Blas Copeland on 01-02-2023 Color (U) Yellow Yellow [facility] Urine glucose detectionOrder ed By: Blas Copeland on 01-02-2023 Glucose Ql (U) 100 mg/dl Normal [facility] Urine leukocyte esterase det ection by dipstickOrdered By: Blas Copeland on 01-02-2023 Leukocyte esterase Test strip Ql (U) 100 /ul Negative [facility] Urine pHOrdered By: Blas nur on 01-02-2023 pH (U) 6.0 [pH] 5.0 - 8.0 [facility] Urine sediment bacteria coun t by microscopy (number/high power field)Ordered By: Blas Copeland on 01-02-2023 Bacteria LM.HPF (Urine sed) [#/Area] 0 /[HPF] None Seen [facility] Urine specific gravity measu rementOrdered By: Blas Copeland on 01-02-2023 Specific gravity (U) [Rel density] 1.010 1.002-1.030 [facility] Urobilinogen Auto test strip Ql (U)Ordered By: Blas Copeland on 01-02-2023 Urobilinogen Ql (U) Normal mg/dl Normal [facility] Absolute lymphocyte countOrd ered By: Bessie Haro on 12-12-2022 Lymphocytes Auto (Unsp spec) [#/Vol] 1.20 10*3/uL 0.83-4.51 [facility] Basophil percentageOrdered B y: Bessie Haro on 12-12-2022 Basophil percentage 0-5 SEEN /hpf 0-5 [facility] Basophils/100 WBC (Bld) 0.5 % 0-1 [facility] Chloride [Moles/Vol] 103 mmol/L 98-107 [facility] Eosinophils/100 WBC (Bld) 0.4 % 0-5 [facility] Glucose [Mass/Vol] 157 mg/dL 74-106 [facility] Comment on above: Fasting Glucose resu lt greater than or equal to 126 mg/dL suggests DIABETES MELLITUS per A.D.A. criteria. Lactate [Moles/Vol] 2.5 mmol/L 0.4-2.0 [facility] Comment on above: Critical Result(s) C alled at: 20:57:32 12/12/2022 by: Korina Kilgore Results read back by same. Neutrophils (Bld) [#/Vol] 5.4 10*3/uL 2.0-7.7 [facility] Neutrophils/100 WBC (Bld) 70.3 % 47-70 [facility] Potassium [Moles/Vol] 4.1 mmol/L 3.5-5.1 [facility] Sodium [Moles/Vol] 137 mmol/L 136-145 [facility] WBC (Bld) [#/Vol] 7.7 10*3/uL 4.4-11.0 [facility] Bilirubin Test strip Ql (U)O rdered By: Bessie Haro on 12-12-2022 Bilirubin Ql (U) 6 mg/dL Negative [facility] Comment on above: COLOR OF URINE MAY A FFECT DIPSTICK RESULTS. Blood erythrocytes count (nu mber/volume)Ordered By: Bessie Haro on 12-12-2022 RBC (Bld) [#/Vol] 4.08 10*6/uL 4.6-6.2 [facility] Blood hemoglobin measurement (mass/volume)Ordered By: Bessie Haro on 12-12-2022 Hemoglobin (Bld) [Mass/Vol] 12.9 g/dL 13.0-16.5 [facility] Blood lymphocytes/100 leukoc ytesOrdered By: Bessie Haro on 12-12-2022 Lymphocytes/100 WBC (Bld) 15.5 % 19-41 [facility] Blood monocytes/100 leukocyt esOrdered By: Bessie Haro on 12-12-2022 Monocytes/100 WBC (Bld) 12.9 % 0-10 [facility] Blood platelet mean volumeOr dered By: Bessie Haro on 12-12-2022 Platelet mean volume (Bld) [Entitic vol] 10.4 fL 6.2-12.0 [facility] Culture, urineOrdered By: Attila Haro on 12-12-2022 Bacteria identified Cx Nom (U) Culture exhibits no growth. [facility] Determination of erythrocyte mean corpuscular volume (MCV)Ordered By: Bessie Haro on 12-12-2022 MCV (RBC) [Entitic vol] 95.8 fL 80-94 [facility] Hematocrit Auto (Bld) [Volum e fraction]Ordered By: Bessie Haro on 12-12-2022 Hematocrit (Bld) [Volume fraction] 39.1 % 40-54 [facility] Ketones Test strip Ql (U)Ord ered By: Bessie Haro on 12-12-2022 Ketones Ql (U) 15 mg/dl Negative [facility] - Chemistry and C hemistry - challengeOrdered By: Bessie Haro on 12-12-2022 CO2 [Moles/Vol] 27.0 mmol/L 21.0-32.0 [facility] Urea nitrogen/Creatinine [Mass ratio] 15.1 mg/mg 10-20 [facility] - Hematology and Cell countsOrdered By: Bessie Haro on 12-12-2022 Erythrocyte distribution width (RBC) [Entitic vol] 42.6 fL 35.1-43.9 [facility] Erythrocyte distribution width (RBC) [Ratio] 12.1 % 11.6-14.6 [facility] Immature granulocytes/100 WBC (Bld) 0.400 % 0.0-0.9 [facility] Comment on above: IG% - Immature Granu locytes (promyelocytes, myelocytes and metamyelocytes) > 1% indicates that a LEFT SHIFT is Present. MCH (RBC) [Entitic mass] 31.6 pg 27.0-32.0 [facility] Nucleated RBC/100 WBC (Bld) [Ratio] 0 % 0-5 [facility] - Microbiology an d Antimicrobial susceptibilityOrdered By: Bessie Haro on 12-12-2022 Bacteria identified Cx Nom (Bld) No growth in 5 days. [facility] MCHC Auto (RBC) [Mass/Vol]Or dered By: Bessie Haro on 12-12-2022 MCHC (RBC) [Mass/Vol] 33.0 g/dL 32-36 [facility] Mucus LM Ql (Urine sed)Order ed By: Bessie Haro on 12-12-2022 Mucus Ql (Urine sed) 0 SEEN /hpf [facility] Nitrite Test strip Ql (U)Ord ered By: Bessie Haro on 12-12-2022 Nitrite Ql (U) Positive Negative [facility] No Panel InformationOrdered By: Bessie Haro on 12-12-2022 Estimated Creatinine Clearance Calc 43.35 ml/min [facility] Estimated GFR (MDRD) Amer 65 mL/min >60 [facility] Comment on above: GFR Calc Estimated GFR (MDRD) Non-Af Amer 53 mL/min >60 [facility] Comment on above: Non- GFR Calc Platelets bldOrdered By: Rosanna Haro on 12-12-2022 Platelets (Bld) [#/Vol] 189 10*3/uL 150-450 [facility] Protein Test strip Ql (U)Ord ered By: Bessie Haro on 12-12-2022 Protein Ql (U) 100 mg/dl Negative [facility] Serum or plasma calcium jonathan urement (mass/volume)Ordered By: Bessie Haro on 12-12-2022 Calcium [Mass/Vol] 9.3 mg/dL 8.5-10.1 [facility] Serum or plasma creatinine m easurement (mass/volume)Ordered By: Bessie Haro on 12-12-2022 Creatinine [Mass/Vol] 1.39 mg/dL 0.70-1.30 [facility] Comment on above: The validity of the calculated GFR & GFRAA in patients over 70 years has not been determined. Clinical correlation is essential. Serum or plasma urea nitroge n measurement (mass/volume)Ordered By: Bessie Haro on 12-12-2022 Urea nitrogen [Mass/Vol] 21 mg/dL 7-18 [facility] Squamous epithelial cells de tection in urine sediment by light microscopyOrdered By: Bessie Haro on 12-12-2022 Epithelial cells.squamous LM Ql (Urine sed) 0 SEEN /hpf 0-5 [facility] Thin prep Papanicolaou smear with manual screeningOrdered By: Bessie Haro on 12-12-2022 Thin prep Papanicolaou smear with manual screening 7 5-15 [facility] Urine blood detectionOrdered By: Bessie Haro on 12-12-2022 RBC Ql (U) 250 /ul Negative [facility] RBC Ql (U) > 100 SEEN /hpf 0-5 [facility] Urine clarityOrdered By: Rosanna Haro on 12-12-2022 Clarity (U) Cloudy Clear [facility] Urine color determinationOrd ered By: Bessie Haro on 12-12-2022 Color (U) Brown Yellow [facility] Urine glucose detectionOrder ed By: Bessie Haro on 12-12-2022 Glucose Ql (U) 100 mg/dl Normal [facility] Urine leukocyte esterase det ection by dipstickOrdered By: Bessie Haro on 12-12-2022 Leukocyte esterase Test strip Ql (U) 100 /ul Negative [facility] Urine pHOrdered By: Bessie Haro on 12-12-2022 pH (U) 5.0 [pH] 5.0 - 8.0 [facility] Urine sediment bacteria coun t by microscopy (number/high power field)Ordered By: Bessie Haro on 12-12-2022 Bacteria LM.HPF (Urine sed) [#/Area] 1 /[HPF] None Seen [facility] Urine specific gravity measu rementOrdered By: Bessie Haro on 12-12-2022 Specific gravity (U) [Rel density] 1.020 1.002-1.030 [facility] Urobilinogen Auto test strip Ql (U)Ordered By: Bessie Haro on 12-12-2022 Urobilinogen Ql (U) 8 mg/dl Normal [facility] Glucose Glucometer (BldC) [M ass/Vol]Ordered By: Duke Trinh on 12-09-2022 Glucose [Mass/Vol] 117 mg/dL 74-106 [facility] Comment on above: MANAGEMENT OF PATIEN T CARE PER NURSING PROTOCOL Laboratory - Drug toxicology Ordered By: Yamile Hines on 11-30-2022 Amphetamines Ql (U) Negative <1000 ng/mL [facility] Benzodiazepines Ql (U) Negative < 200 ng/mL [facility] Cannabinoids Screen Ql (U) Negative < 50 ng/mL [facility] Cocaine Ql (U) Negative < 300 ng/mL [facility] Opiates Ql (U) Negative < 300 ng/mL [facility] No Panel InformationOrdered By: Yamile Hines on 11-30-2022 MDMA (Ecstasy) Screen Negative < 500 ng/mL [facility] Miscellaneous Test See comment [facility] Comment on above: [id number] 6+OXYCODONE-B UND (ng/mL) DRUG RESULT SCREEN CUTOFF____ [...] Conf,MS,UR 455 ng/mL 300 TESTING PERFORMED AT [facility]. ORIGINAL REPORT ON FILE IN LAB CONTAINS ADDITIONAL TEST SITE INFORMATION. Urine Barbiturates Screen Negative < 200 ng/mL [facility] Urine Drug Screen Comment [facility] Comment on above: CONFIRMATORY TESTING FOR ALL [...] TESTING MUST BE ORDERED SEPARATELY. USE TESTMNEMONIC: [facility] Urine Methadone Screen Negative < 300 ng/mL [facility] Urine phencyclidine (PCP) de tectionOrdered By: Yamile Hines on 11-30-2022 Phencyclidine Ql (U) Negative < 25 ng/mL [facility] Basophil percentageOrdered B y: Nathanael Rojas on 11-15-2022 Chloride [Moles/Vol] 109 mmol/L 98-107 [facility] Glucose [Mass/Vol] 86 mg/dL 74-106 [facility] Potassium [Moles/Vol] 4.3 mmol/L 3.5-5.1 [facility] Comment on above: Slight Hemolysis, Re sult may be falsely increased. Sodium [Moles/Vol] 141 mmol/L 136-145 [facility] [facility] [place] [facility] - Chemistry and C hemistry - challengeOrdered By: Nathanael Rojas on 11-15-2022 CO2 [Moles/Vol] 23.0 mmol/L 21.0-32.0 [facility] Urea nitrogen/Creatinine [Mass ratio] 28.7 mg/mg 10-20 [facility] No Panel InformationOrdered By: Nathanael Rojas on 11-15-2022 Estimated GFR (MDRD) Amer 86 mL/min >60 [facility] Comment on above: GFR Calc Estimated GFR (MDRD) Non-Af Amer 71 mL/min >60 [facility] Comment on above: Non- GFR Calc Serum or plasma calcium jonathan urement (mass/volume)Ordered By: Nathanael Rojas on 11-15-2022 Calcium [Mass/Vol] 9.6 mg/dL 8.5-10.1 [facility] Serum or plasma creatinine m easurement (mass/volume)Ordered By: Nathanael Rojas on 11-15-2022 Creatinine [Mass/Vol] 1.08 mg/dL 0.70-1.30 [facility] Comment on above: The validity of the calculated GFR & GFRAA in patients over 70 years has not been determined. Clinical correlation is essential. Serum or plasma urea nitroge n measurement (mass/volume)Ordered By: Nathanael Rojas on 11-15-2022 Urea nitrogen [Mass/Vol] 31 mg/dL 7-18 [facility] Thin prep Papanicolaou smear with manual screeningOrdered By: Nathanael Rojas on 11-15-2022 Thin prep Papanicolaou smear with manual screening 9 -15 [facility] Whole blood hemoglobin A1c/t otal hemoglobin ratio (mass fraction)Ordered By: Nathanael Rojas on 11-15-2022 HbA1c (Bld) [Mass fraction] 6.5 % 3.8-5.6 [facility] Comment on above: Normal < 5.7 % Predi abetic 5.7 - 6.4 % Diabetic >or= 6.5 % Please note range changes. Shawn 11-10-2022 Potassium [Moles/Vol] 5.3 mmol/L High 3.5-5.1 [facility] ([place]) Comment on above: Performed By: #### K #### [address] [address] .Auto Diffon 11-09-2022 Basophil, Absolute 0.0 10 3/mcL Normal 0.0-0.2 [facility] ([place]) Comment on above: Performed By: #### C BC, ANEU, BMP, GFR, ADIFF #### [address] [address] Basophils/100 WBC (Bld) 0.3 % Normal 0.0-2.5 [facility] ([place]) Comment on above: Performed By: #### C BC, ANEU, BMP, GFR, ADIFF #### [address] [address] Eosinophil, Absolute 0.0 10 3/mcL Normal 0.0-0.4 [facility] ([place]) Comment on above: Performed By: #### C BC, ANEU, BMP, GFR, ADIFF #### [address] [address] Eosinophils/100 WBC (Bld) 0.5 % Normal 0.0-7.0 [facility] ([place]) Comment on above: Performed By: #### C BC, ANEU, BMP, GFR, ADIFF #### [address] [address] Lymphocyte, Absolute 1.4 10 3/mcL Normal 0.8-3.9 [facility] ([place]) Comment on above: Performed By: #### C BC, ANEU, BMP, GFR, ADIFF #### [address] [address] Lymphocytes/100 WBC (Bld) 16.4 % Normal 10.0-50.0 [facility] ([place] Comment on above: Performed By: #### C BC, ANEU, BMP, GFR, ADIFF #### [address] [address] Monocyte, Absolute 0.5 10 3/mcL Normal 0.2-1.0 [facility] ([place]) Comment on above: Performed By: #### C BC, ANEU, BMP, GFR, ADIFF #### [address] [address] Monocytes/100 WBC (Bld) 5.9 % Normal 1.7-13.0 [facility] ([place]) Comment on above: Performed By: #### C BC, ANEU, BMP, GFR, ADIFF #### [address] [address] Neutrophils/100 WBC (Bld) 76.9 % Normal 37.0-80.0 [facility] ([place]) Comment on above: Performed By: #### C BC, ANEU, BMP, GFR, ADIFF #### [address] [address] .GFRon 11-09-2022 GFR 35 ml/min/1.73sqm Normal [facility] ([place]) Comment on above: Result Comment: GFR Population [...] C BC, ANEU, BMP, GFR, ADIFF #### [address] [address] GFR Non- 29 ml/min/1.73sqm Normal [facility] ([place]) Comment on above: Result Comment: GFR Population [...] C BC, ANEU, BMP, GFR, ADIFF #### [address] [address] .NEUABSon 11-09-2022 Neutrophil, Absolute 6.8 10 3/mcL High 2.9-6.2 [facility] ([place]) Comment on above: Performed By: #### C BC, ANEU, BMP, GFR, ADIFF #### [address] [address] BMPon 11-09-2022 BUN/Creatinine Ratio 20 ratio Normal 7-27 [facility] ([place] Comment on above: Performed By: #### C BC, ANEU, BMP, GFR, ADIFF #### [address] [address] Calcium [Mass/Vol] 9.3 mg/dL Normal 8.4-10.2 [facility] ([place]) Comment on above: Performed By: #### C BC, ANEU, BMP, GFR, ADIFF #### [address] [address] Chloride [Moles/Vol] 103 mmol/L Normal 98-107 [facility] ([place]) Comment on above: Performed By: #### C BC, ANEU, BMP, GFR, ADIFF #### [address] [address] CO2 [Moles/Vol] 32 mmol/L High 23-31 [facility] ([place] Comment on above: Performed By: #### C BC, ANEU, BMP, GFR, ADIFF #### [address] [address] Creatinine [Mass/Vol] 2.26 mg/dL High 0.70-1.30 [facility] ([place]) Comment on above: Performed By: #### C BC, ANEU, BMP, GFR, ADIFF #### [address] [address] Electrolyte Balance 7.0 mEq/L Normal 4.0-15.0 [facility] ([place]) Comment on above: Performed By: #### C BC, ANEU, BMP, GFR, ADIFF #### [address] [address] Glucose [Mass/Vol] 158 mg/dL High 83-110 [facility] ([place]) Comment on above: Performed By: #### C BC, ANEU, BMP, GFR, ADIFF #### [address] [address] Potassium [Moles/Vol] 6.1 mmol/L Critically abnormal 3.5-5.1 [facility] ([place] Comment on above: Performed By: #### C BC, ANEU, BMP, GFR, ADIFF #### [address] [address] Sodium [Moles/Vol] 142 mmol/L Normal 136-145 [facility] ([place]) Comment on above: Performed By: #### C BC, ANEU, BMP, GFR, ADIFF #### [address] [address] Urea nitrogen [Mass/Vol] 45 mg/dL High 7-18 [facility] ([place] Comment on above: Performed By: #### C BC, ANEU, BMP, GFR, ADIFF #### [address] [address] CBCon 11-09-2022 Erythrocyte distribution width (RBC) [Ratio] 12.9 % Normal 11.5-14.5 [facility] ([place] Comment on above: Performed By: #### C BC, ANEU, BMP, GFR, ADIFF #### [address] [address] Hematocrit (Bld) [Volume fraction] 36.5 % Low 42.0-52.0 [facility] ([place] Comment on above: Performed By: #### C BC, ANEU, BMP, GFR, ADIFF #### [address] [place], [place] [address] Hgb 12.3 G/dL Low 14.0-18.0 [facility] ([place] Comment on above: Performed By: #### C BC, ANEU, BMP, GFR, ADIFF #### [address] [address] MCH (RBC) [Entitic mass] 31.7 pg High 27.0-31.2 [facility] ([place] Comment on above: Performed By: #### C BC, ANEU, BMP, GFR, ADIFF #### [address] [address] MCHC 33.8 G/dL Normal 31.8-35.4 [facility] ([place] Comment on above: Performed By: #### C BC, ANEU, BMP, GFR, ADIFF #### [address] [address] MCV (RBC) [Entitic vol] 93.9 fL Normal 80.0-94.0 A [facility] ([place]) Comment on above: Performed By: #### C BC, ANEU, BMP, GFR, ADIFF #### [address] [address] Platelet 218 10 3/mcL Normal 130-400 [facility] ([place] Comment on above: Performed By: #### C BC, ANEU, BMP, GFR, ADIFF #### [address] [address] Platelet mean volume (Bld) [Entitic vol] 8.9 fL Normal 7.4-10.4 [facility] ([place] Comment on above: Performed By: #### C BC, ANEU, BMP, GFR, ADIFF #### [address] [address] RBC 3.89 10 6/mcL Low 4.04-6.13 [facility] ([place] Comment on above: Performed By: #### C BC, ANEU, BMP, GFR, ADIFF #### [address] [place], [place] [address] WBC 8.8 10 3/mcL Normal 4.6-10.8 [facility] ([place] Comment on above: Performed By: #### C BC, ANEU, BMP, GFR, ADIFF #### [address] [place], [place] [address] Basophil percentageOrdered B y: Dr. Rojas on 04-12-2022 Basophil percentage < 0.9 mg/dL 0.70-1.30 [facility] No Panel InformationOrdered By: Dr. Rojas on 04-12-2022 Bedside Estimated GFR (eGFR) > 60.0000 mL/min >60 [facility] ECG 12 Leadon 03-16-2022 Atrial Rate [facility] P [facility] P-R Interval [facility] Q-T Interval [facility] Q-T Interval (corrected) [facility] QRS Duration [facility] QTC Calculation (Bezet) [facility] T [facility] POC Glucose by reagent strip (Finger Stick)on 03-16-2022 Glucose [Mass/Vol] 176 mg/dL Abnormal 65 - 99 mg/dL [facility] Interpretation and review of laboratory results Abnormal [facility] No Panel Informationon 11-04 Prostate Specific Antigen Screen 3.81 ng/mL 0.00-4.00 [facility] Work Phone: Comment on above: This test was perfor med using the TPSA assay method for the[employer] chemistry system. Values obtained with differentassay methods cannot be used interchangably.When changing PSA assays in the course of monitoring apatient, additional sequential testing should be carriedout to confirm baseline values. No Panel Informationon 09-09 [facility] Clinical Summary: HMSPatient IDon 01-04-2019 OOP [facility] Work Phone: Clinical Lists Update: Prelo ad Extendedon 01-03-2019 Tobacco smoking status NHIS Tobacco smoking status NHIS [facility] Work Phone: Clinical Summary: Scanned Jb story Summaryon 01-03-2019 cause of , father colon cancer [facility] Work Phone: cause of , mother brain cancer [facility] Work Phone: comments about allergies amoxicillin [facility] Work Phone: data entered by patient, alcohol (ethanol or ETOH) use No [facility] Work Phone: Data entered by patient, allergy list PenicillinPlant pollens (Hay Fever)I don't have any Food Allergies [facility] Work Phone: data entered by patient, drug (of abuse) use No [facility] Work Phone: data entered by patient, Employer Name retired [facility] Work Phone: data entered by patient, exercise history No [facility] Work Phone: data entered by patient, father's medical history Cancer [facility] Work Phone: Data entered by patient, history of past surgeries Cervical spine discectomyCervical spine fusionTonsillectomy [facility] Work Phone: Data entered by patient, medication list metformin hcl-1000 mg.-one-two times dailydoxazosin mesylate-4 mg.-one-once dailylosartan potassium-25 mg.-one-once dailyIC Cyclobenzaprine-10 mg.-one-up to 3 times daily as neededsimvastatin-10 mg.-one-once dailyhydrocodone bitartrate and acetaminophen wtovmez-1-944 mg.-one-up to 4 times daily as neededpropranolol ER-120 mg.-one-once dailybactrim-160 mg.-one-every 12 hrs. for seven dayslocoid lipocream-0.1% hydrocodone mzsbvqwu-isqqje-ygq times daily as needednystatin-100,000 Units JAIL yonrb-kwlao-obklf liberally-two times daily as neededcentrum kqprwy-dulrx-lgvdlgq-on e-one time dailyomega 3 fish oil-600 mgs.-one-two times dailybayer back and body-500 mgs.-two-up to four times daily as neededbenedryl-25 mgs.-one or two-up to six times daily as neededeye drops-Nephazoline HCI (0.04405%) Pneniramine maleate (0.315%)-one or two drops-up to four times daily as needed [facility] Work Phone: data entered by patient, mother's medical history Cancer [facility] Work Phone: data entered by patient, past medical history Diabetes - non-insulin dependentObesity [facility] Work Phone: data entered by patient, social history, current smoker never smoker [facility] Work Phone: data entered by patient, social history, marital status [facility] Work Phone: father of patient is alive or [facility] Work Phone: Housing Type: apartment, house, long-term, trailer, none house [facility] Work Phone: housing unit size (asthma environmental history, housing) (from single family to don't know) 3 floors [facility] Work Phone: medical history of patient's brother(s) My brother's health history is unknown [facility] Work Phone: medical history of patient's sister MelanomaObesity [facility] Work Phone: mother of patient is alive or [facility] Work Phone: Number of dependent children No [facility] Work Phone: Web entered surgical history comments nathanael removed from neck at 6-7 years of age, Urolift procedure on 06/02/2017, treatments for kidney stones, colonoscopies, minor surgery for cyst removal, one squamus cell carcinoma removed [facility] Work Phone: Vital Signs Date Time Vital Sign Value Performing Clinician Facility 11-20-2024 16:30-0400 Body temperature 97 [degF] Dr. Nathanael Rojas DO Work Phone: [facility] 11-20-2024 16:30-0400 Diastolic blood pressure 67 mm[Hg] Dr. Nathanael Rojas DO Work Phone: [facility] 11-20-2024 16:30-0400 Heart rate 60 /min Dr. Nathanael Rojas DO Work Phone: [facility] 11-20-2024 16:30-0400 Respiratory rate 16 /min Dr. Nathanael Rojas DO Work Phone: [facility] 11-20-2024 16:30-0400 SaO2% (BldA) [Mass fraction] 94 % Dr. Nathanael Rojas DO Work Phone: [facility] 11-20-2024 16:30-0400 Systolic blood pressure 146 mm[Hg] Dr. Nathanael Rojas DO Work Phone: [facility] 11-20-2024 16:15-0400 Inhaled oxygen flow rate 2 L/min Dr. Nathanael Rojas DO Work Phone: [facility] 11-20-2024 13:01-0400 Body height 170.[address] Nathanael Rojas DO Work Phone: [facility] 11-20-2024 13:01-0400 Body mass index (BMI) [Ratio] 31.7 kg/m2 Dr. Nathanael Rojas DO Work Phone: [facility] 11-20-2024 13:01-0400 Body weight [address] Nathanael Rojas DO Work Phone: [facility] 09-06-2024 10:30-0400 Diastolic blood pressure 76 mm[Hg] Minh Gerber MD Work Phone: [facility] 09-06-2024 10:30-0400 Heart rate 70 /min Minh Gerber MD Work Phone: [facility] 09-06-2024 10:30-0400 Respiratory rate 16 /min Minh Gerber MD Work Phone: [facility] 09-06-2024 10:30-0400 SaO2% (BldA) [Mass fraction] 95 % Minh Gerber MD Work Phone: [facility] 09-06-2024 10:30-0400 Systolic blood pressure 157 mm[Hg] Minh Gerber MD Work Phone: [facility] 09-06-2024 09:21-0400 Body mass index (BMI) [Ratio] 34.37 kg/m2 Minh Gerber MD Work Phone: [facility] 09-06-2024 09:21-0400 Body temperature 97.39 [degF] Minh Gerber MD Work Phone: [facility] 09-06-2024 09:21-0400 Body weight 96.6 kg Minh Gerber MD Work Phone: [facility] 08-22-2024 14:31-0400 Body height 170.[address] Nathanael Rojas DO Work Phone: [facility] 08-22-2024 14:31-0400 Body mass index (BMI) [Ratio] 33.3 kg/m2 Dr. Nathanael Rojas DO Work Phone: [facility] 08-22-2024 14:31-0400 Body weight 96.[address] Nathanael Rojas DO Work Phone: [facility] 08-12-2024 14:16-0400 Body height 167.6 cm Karly Hendersonir PHYSICIAN PRACTICE MANAGER.TABLE ATTENDANT Work Phone: [facility] 08-12-2024 14:16-0400 Body mass index (BMI) [Ratio] 34.38 kg/m2 Karly Jenny PHYSICIAN PRACTICE MANAGER.TABLE ATTENDANT Work Phone: [facility] 08-12-2024 14:16-0400 Body weight 96.62 kg Karly Hendersonir PHYSICIAN PRACTICE MANAGER.TABLE ATTENDANT Work Phone: [facility] 08-12-2024 14:16-0400 Diastolic blood pressure 79 mm[Hg] Karly Jenny PHYSICIAN PRACTICE MANAGER.TABLE ATTENDANT Work Phone: [facility] 08-12-2024 14:16-0400 Heart rate 82 /min Karly Hendersonir PHYSICIAN PRACTICE MANAGER.TABLE ATTENDANT Work Phone: [facility] 08-12-2024 14:16-0400 SaO2% (BldA) [Mass fraction] 98 % Karly Hendersonir PHYSICIAN PRACTICE MANAGER.TABLE ATTENDANT Work Phone: [facility] 08-12-2024 14:16-0400 Systolic blood pressure 152 mm[Hg] Karly Jenny PHYSICIAN PRACTICE MANAGER.TABLE ATTENDANT Work Phone: [facility] 07-11-2024 11:53-0400 Body temperature 98.1 [degF] Dr. Nathaneal Rojas DO Work Phone: [facility] 07-11-2024 11:53-0400 Diastolic blood pressure 77 mm[Hg] Dr. Nathanael Rojas DO Work Phone: [facility] 07-11-2024 11:53-0400 Heart rate 79 /min Dr. Nathanael Rojas DO Work Phone: [facility] 07-11-2024 11:53-0400 Respiratory rate 18 /min Dr. Nathanael Rojas DO Work Phone: [facility] 07-11-2024 11:53-0400 SaO2% (BldA) [Mass fraction] 95 % Dr. Nathanael Rojas DO Work Phone: [facility] 07-11-2024 11:53-0400 Systolic blood pressure 156 mm[Hg] Dr. Nathanael Rojas DO Work Phone: [facility] 07-10-2024 16:05-0400 Inhaled oxygen flow rate 2 L/min Dr. Nathanael Rojas DO Work Phone: [facility] 07-10-2024 13:51-0400 Body height 170.[address] Nathanael Rojas DO Work Phone: [facility] 07-10-2024 13:51-0400 Body mass index (BMI) [Ratio] 34.5 kg/m2 Dr. Nathanael Rojas DO Work Phone: [facility] 07-10-2024 13:51-0400 Body weight [address] Nathanael Rojas DO Work Phone: [facility] 07-04-2024 13:32-0400 Body mass index (BMI) [Ratio] 35.2 kg/m2 Dr. Nathanael Rojas DO Work Phone: [facility] 07-04-2024 13:32-0400 Body weight 98.[address] Nathanael Rojas DO Work Phone: [facility] 04-09-2024 12:56-0500 Body mass index (BMI) [Ratio] 34.7 kg/m2 Dr. Nathanael Rojas DO Work Phone: [facility] 04-09-2024 12:56-0500 Body weight 97.[address] Nathanael Rojas DO Work Phone: [facility] 01-02-2023 16:42-0400 Diastolic blood pressure 66 mm[Hg] [facility] 01-02-2023 16:42-0400 Heart rate 74 /min [facility] 01-02-2023 16:42-0400 SaO2% (BldA) [Mass fraction] 95 % [facility] 01-02-2023 16:42-0400 Systolic blood pressure 142 mm[Hg] [facility] 01-02-2023 13:02-0400 Body height 167.64 cm [facility] 01-02-2023 13:02-0400 Body mass index (BMI) [Ratio] 34.3 kg/m2 [facility] 01-02-2023 13:02-0400 Body temperature 97.6 [degF] [facility] 01-02-2023 13:02-0400 Body weight 96.6 kg [facility] 01-02-2023 13:02-0400 Respiratory rate 21 /min [facility] 12-12-2022 21:19-0400 Heart rate 82 /min [facility] 12-12-2022 21:19-0400 Respiratory rate 20 /min [facility] 12-12-2022 21:07-0400 Diastolic blood pressure 89 mm[Hg] [facility] 12-12-2022 21:07-0400 SaO2% (BldA) [Mass fraction] 93 % [facility] 12-12-2022 21:07-0400 Systolic blood pressure 157 mm[Hg] [facility] 12-12-2022 19:08-0400 Body height 167.64 cm [facility] 12-12-2022 19:08-0400 Body mass index (BMI) [Ratio] 35 kg/m2 [facility] 12-12-2022 19:08-0400 Body temperature 96.8 [degF] [facility] 12-12-2022 19:08-0400 Body weight 98.5 kg [facility] 12-09-2022 10:08-0400 SaO2% (BldA) [Mass fraction] 97 % [facility] 12-09-2022 10:00-0400 Body temperature 97.5 [degF] [facility] 12-09-2022 10:00-0400 Diastolic blood pressure 62 mm[Hg] [facility] 12-09-2022 10:00-0400 Heart rate 60 /min [facility] 12-09-2022 10:00-0400 Inhaled oxygen flow rate 2 L/min [facility] 12-09-2022 10:00-0400 Respiratory rate 16 /min [facility] 12-09-2022 10:00-0400 Systolic blood pressure 147 mm[Hg] [facility] 12-09-2022 06:21-0400 Body height 167.64 cm [facility] 12-09-2022 06:21-0400 Body mass index (BMI) [Ratio] 34.2 kg/m2 [facility] 12-09-2022 06:21-0400 Body weight 96.3 kg [facility] 03-16-2022 09:13-0500 Diastolic blood pressure 84 mm[Hg] Lucas Aaron DO Work Phone: [facility] 03-16-2022 09:13-0500 Systolic blood pressure 145 mm[Hg] Lucas Aaron DO Work Phone: [facility] 03-16-2022 09:06-0500 Body height 167.6 cm Lucas Aaron DO Work Phone: [facility] 03-16-2022 09:06-0500 Body mass index (BMI) [Ratio] 33.57 kg/m2 Lucas Aaron DO Work Phone: [facility] 03-16-2022 09:06-0500 Body temperature 98.2 [degF] Lucas Aaron DO Work Phone: [facility] 03-16-2022 09:06-0500 Body weight 94.35 kg Lucas Aaron DO Work Phone: [facility] 03-16-2022 09:06-0500 Heart rate 70 /min Lucas Aaron DO Work Phone: [facility] 03-16-2022 09:06-0500 Respiratory rate 16 /min Lucas Aaron DO Work Phone: [facility] 03-16-2022 09:06-0500 SaO2% (BldA) [Mass fraction] 98 % Lucas Aaron DO Work Phone: [facility] 09-27-2021 14:07-0400 Diastolic blood pressure 82 mm[Hg] Jerri Leadore PA-C Work Phone: [facility] 09-27-2021 14:07-0400 Systolic blood pressure 152 mm[Hg] Jerri Leadore PA-C Work Phone: [facility] 09-27-2021 13:42-0400 Body height 167.6 cm Jerri Leadore PA-C Work Phone: [facility] 09-27-2021 13:42-0400 Body temperature 97.7 [degF] Jerri Leadore PA-C Work Phone: [facility] 09-27-2021 13:42-0400 Body weight 98.88 kg Jerri Sarath PA-C Work Phone: [facility] 09-27-2021 13:42-0400 Heart rate 73 /min Jerri Leadore PA-C Work Phone: [facility] 09-27-2021 13:42-0400 SaO2% (BldA) [Mass fraction] 98 % Jerri Sarath PA-C Work Phone: [facility] 09-09-2021 09:25-0400 Diastolic blood pressure 58 mm[Hg] Minh Gerber MD Work Phone: [facility] 09-09-2021 09:25-0400 Heart rate 61 /min Minh Gerber MD Work Phone: [facility] 09-09-2021 09:25-0400 SaO2% (BldA) [Mass fraction] 96 % Minh Gerber MD Work Phone: [facility] 09-09-2021 09:25-0400 Systolic blood pressure 166 mm[Hg] Minh Gerber MD Work Phone: [facility] 09-09-2021 09:11-0400 Respiratory rate 16 /min Minh Gerber MD Work Phone: [facility] 09-09-2021 07:33-0400 Body temperature 97.11 [degF] Minh Gerber MD Work Phone: [facility] 08-03-2021 13:48-0400 Body height 167.6 cm Jerri Leadore PA-C Work Phone: [facility] 08-03-2021 13:48-0400 Body temperature 97.39 [degF] Jerri Sarath PA-C Work Phone: [facility] 08-03-2021 13:48-0400 Body weight 98.88 kg Jerri Leadore PA-C Work Phone: [facility] 08-03-2021 13:48-0400 Diastolic blood pressure 84 mm[Hg] Jerri Leadore PA-C Work Phone: [facility] 08-03-2021 13:48-0400 Heart rate 75 /min Jerri Leadore PA-C Work Phone: [facility] 08-03-2021 13:48-0400 SaO2% (BldA) [Mass fraction] 96 % Jerri Leadore PA-C Work Phone: [facility] 08-03-2021 13:48-0400 Systolic blood pressure 123 mm[Hg] Jerri Leadore PA-C Work Phone: [facility] NEGATED: Highlighted [id number] 09:51-0400 BMI (Body Mass Index) 36.61 kg/m2 Carla Lester AT [facility] Work Phone: NEGATED: Highlighted [id number] 09:51-0400 Body weight 102.51 kg Carla Cruzer AT [facility] Work Phone: NEGATED: Highlighted [id number] 09:51-0400 Body weight 103 kg Carla Trevon AT [facility] Work Phone: NEGATED: Highlighted [id number] 09:51-0400 BP Diastolic 78 mm[Hg] Carla Cruzer AT [facility] Work Phone: NEGATED: Highlighted [id number] 09:51-0400 BP Systolic 135 mm[Hg] Carla Lester AT [facility] Work Phone: NEGATED: Highlighted [id number] Height 167.64 cm Carla Lester AT [facility] Work Phone: NEGATED: Highlighted [id number] 09:51-0400 Height 168 cm Carla Lester AT [facility] Work Phone: NEGATED: Highlighted [id number] 09:51-0400 Pulse (Heart Rate) 71 /min Carla Lester AT [facility] Work Phone: Encounters Encounter Date Encounter Type Care Provider Facility Start: 01-30-2025 End: 01-30-2025 ambulatory [facility] Facility:[facility] Start: 01-23-2025 End: 01-23-2025 ambulatory [facility] Facility:[facility] Start: 12-18-2024 ambulatory [facility] Facility: [facility] Start: 11-25-2024 ambulatory [facility] Facility: [facility] Start: 11-20-2024 End: 11-20-2024 Admission to same day surgery center Dr. Duke Trinh MD -[facility] Start: 11-20-2024 End: 11-20-[address] Nathanael Rojas DO Work Phone: -[facility] Day [facility] Start: 11-11-2024 End: 11-11-[address] Nathanael Rojas DO Work Phone: -Cat Scan [facility] Start: 11-11-2024 End: 11-11-2024 Patient encounter procedure Esthela Leo -Cat Scan [facility] Work Phone: Start: 11-11-2024 End: 11-11-2024 ambulatory [facility] Facility:[facility] Start: 10-18-2024 End: 10-18-[address] Tha Mcghee MD -[facility] Start: 10-18-2024 End: 10-18-[address] Nathanael Rojas DO Work Phone: -[facility] Start: 09-13-2024 End: 09-13-2024 Patient encounter procedure Karly Alvarado APRN.TABLE ATTENDANT Work Phone: General Surgery Comment on above: Adenomatous polyp (P rimary Dx) Start: 09-13-2024 End: 09-13-2024 ambulatory [facility] Facility:[facility] Start: 09-12-2024 End: 11-12-2024 Follow-up encounter Karly Alvarado APRN.TABLE ATTENDANT Work Phone: General Surgery Start: 09-06-2024 ambulatory [facility] y:[facility] Start: 09-06-2024 End: 09-06-2024 Subsequent hospital visit by physician Minh Gerber MD Work Phone: Ambulatory Surgery Comment on above: Screen for colon can cer [Z12.11] Start: 08-22-2024 End: 08-22-[address] Tha Mcghee MD -[facility] Start: 08-22-2024 End: 08-22-[address] Nathanael Rojas DO Work Phone: [facility] Work Phone: Start: 08-12-2024 End: 08-12-2024 Patient encounter procedure Karly Alvarado APRN.TABLE ATTENDANT Work Phone: General Surgery Comment on above: Screen for colon can cer (Primary Dx); History of colonic polyps; Family history of colon cancer Start: 08-12-2024 End: 08-12-2024 ambulatory [facility] Facility:[facility] Start: 07-26-2024 Encounter for other preprocedural examination Alexandre Ypi [facility] Start: 07-25-2024 End: 07-25-[address] Alexandre Yip MD -[facility] Work Phone: Start: 07-25-2024 End: 07-25-2024 ambulatory [facility] Facility:[facility] Start: 07-11-2024 Non-patient / Non-visit Florina KYLE -[facility] Start: 07-11-2024 Non-patient / Non-visit Dr. Morro Andres MD -[facility] Work Phone: Start: 07-10-2024 Non-patient / Non-visit Dr. Venessa Neves MD -[facility] Work Phone: Start: 07-10-2024 End: 07-11-2024 ambulatory [facility] Facility:[facility] Start: 07-10-2024 End: 07-11-2024 Evaluation and management of inpatient Dr. Alexandre Yip MD -[facility] 3 Work Phone: Start: 07-10-2024 End: 07-11-[address] Nathanael Rojas DO Work Phone: [facility] Work Phone: Start: 07-10-2024 ambulatory Alexandre Yip [facility] Start: 07-10-2024 Non-patient / Non-visit Dr. Alexandre bazan MD -[facility] Start: 07-04-2024 End: 07-04-[address] Alexandre Yip MD -[facility] Work Phone: Start: 07-04-2024 End: 07-04-2024 ambulatory [facility] Start: 06-27-2024 End: 06-27-2024 ambulatory [facility] Start: 06-27-2024 End: 06-27-2024 Non-patient / Non-visit Dr. Tha Mcghee MD -[facility] Work Phone: Start: 05-17-2024 End: 05-17-[address] Alexandre Yip MD -[facility] Work Phone: Start: 05-17-2024 End: 05-17-2024 ambulatory [facility] Start: 04-09-2024 End: 04-09-[address] Alexandre Yip MD -[facility] Work Phone: Start: 04-09-2024 End: 04-09-2024 ambulatory [facility] Start: 02-15-2024 ambulatory [facility] Facility: [facility] Start: 08-07-2023 End: 08-07-2023 ambulatory [facility] Work Phone: Start: 08-07-2023 End: 08-07-2023 Patient encounter procedure [facility]-Laboratory Work Phone: Start: 06-23-2023 End: 06-23-2023 ambulatory [facility] Work Phone: Start: 06-23-2023 End: 06-23-2023 Patient encounter procedure [facility]-Cat Scan, [facility] Work Phone: Start: 01-02-2023 End: 01-02-2023 Emergency department patient visit [facility]-Emergency Department Work Phone: Start: 12-12-2022 End: 12-12-2022 Emergency department patient visit [facility]-Emergency Department Work Phone: Start: 12-09-2022 End: 12-09-2022 Admission to same day surgery center [facility] Start: 12-09-2022 End: 12-09-2022 ambulatory [facility] Work Phone: Start: 11-30-2022 End: 11-30-2022 ambulatory [facility] Work Phone: Start: 11-30-2022 End: 11-30-2022 Patient encounter procedure [facility]-Laboratory Work Phone: Start: 11-15-2022 End: 11-15-2022 ambulatory [facility] Work Phone: Start: 11-15-2022 End: 11-15-2022 Patient encounter procedure [facility]-Eli Al [facility] Start: 11-10-2022 End: 11-11-[address] DUKE TRINH MD Facility:B Start: 11-09-2022 End: 11-10-[address] DUKE TRINH MD Facility:B Start: 10-31-2022 End: 10-31-2022 ambulatory [facility] Work Phone: Start: 10-31-2022 End: 10-31-2022 Patient encounter procedure [facility]-Radiology, [facility] Work Phone: Start: 09-27-2022 End: 09-27-2022 ambulatory [facility] Work Phone: Start: 09-27-2022 End: 09-27-2022 Patient encounter procedure [facility]-MRI - [facility] Start: 04-12-2022 End: 04-12-2022 ambulatory [facility] Work Phone: Start: 04-12-2022 End: 04-12-2022 Patient encounter procedure [facility]-MRI - [facility] Start: 03-16-2022 End: 03-16-2022 ambulatory PHYSICIAN NO [facility] Start: 03-16-2022 End: 03-16-2022 Encounter for other preprocedural examination LUCAS AARON [facility] Ambulatory Start: 03-16-2022 End: 03-16-2022 Office outpatient new 30 minutes Lucas Aaron DO Work Phone: [facility] Eye Pre admision Testing Comment on above: Pre-op examination ( Primary Dx); Myogenic ptosis of bilateral eyelids; Essential hypertension; Mixed hyperlipidemia; Type 2 diabetes mellitus with other ophthalmic complication, without long-term current use of insulin (HCC) Start: 03-16-2022 End: 03-16-2022 Preprocedural examination done Lucas Aaron DO Work Phone: [facility] Eye Pre admision Testing Start: 03-07-2022 End: 03-07-2022 Patient encounter procedure [facility]-Cat Scan, [facility] Start: 02-08-2022 End: 02-08-2022 ambulatory [facility] Work Phone: Start: 02-08-2022 End: 02-08-2022 Discharged Recurring [facility]-Physical Therapy Start: 11-04-2021 End: 11-04-2021 Patient encounter procedure [facility]-Laboratory Start: 10-01-2021 End: 10-01-2021 Patient encounter procedure [facility]-Cardiovascula r Services Start: 09-27-2021 End: 09-27-2021 Patient encounter procedure Jerri Clemens [employer] Work Phone: General Surgery Comment on above: Tubular adenoma (Angelina joann Dx); Family history of colon cancer; History of colonic polyps Start: 09-09-2021 End: 09-09-2021 Subsequent hospital visit by physician Minh Gerber MD Work Phone: Ambulatory Surgery Comment on above: History of colonic p olyps [Z86.010] Start: 08-03-2021 Telephone encounter Jerri kirk [employer] Work Phone: General Surgery Comment on above: 08-19-2021 [facility] Start: 08-03-2021 End: 08-03-2021 Patient encounter procedure Jerri KYLENeumitra Work Phone: General Surgery Comment on above: Encounter for screen ing for malignant neoplasm of colon (Primary Dx); Personal history of colonic polyps; Family history of colon cancer Start: 05-21-2019 Patient encounter status [facility] Start: 01-04-2019 End: 01-04-2019 Pt evaluation Ra Peterson MD Work Phone: [facility] Work Phone: Procedures Date Procedure Procedure Detail Performing Clinician Start: 11-20-2024 Extracorporeal shock wave lithotripsy Dr. Nathanael Rojas DO Work Phone: Start: 11-20-2024 Plain X-ray abdomen Dr. Nathanael Rojas DO Work Phone: Start: 11-11-2024 CT of abdomen and pe lvis without contrast Dr. Nathanael Rojas DO Work Phone: Start: 10-18-2024 X-ray of cervical spine Dr. Nathanael Rojas DO Work Phone: Start: 09-06-2024 Colonoscopy flx dx w /collj spec when pfrmd Karly Alvarado PHYSICIAN PRACTICE MANAGER.TABLE ATTENDANT Work Phone: Start: 09-06-2024 Colonoscopy Minh stratton MD Work Phone: Start: 08-22-2024 X-ray of cervical spine Dr. Nathanael Rojas DO Work Phone: Start: 07-25-2024 X-ray of cervical spine Dr. Nathanael Rojas DO Work Phone: Start: 07-11-[address] Nathanael Rojas DO Work Phone: Start: 07-11-2024 X-ray of cervical spine Dr. Nathanael Rojas DO Work Phone: Start: 07-10-2024 Cervical arthrodesis by anterior technique Dr. Nathanael Rojas DO Work Phone: Start: 07-10-2024 Fluoroscopic guidance Mary Ann Rojas DO Work Phone: Start: 07-10-2024 X-ray of cervical spine Dr. Nathanael Rojas DO Work Phone: Start: 06-27-2024 Methicillin resistan t Staphylococcus aureus screening test Dr. Nathanael Rojas DO Work Phone: Start: 06-27-2024 Hepatitis A virus an tibody, total measurement Dr. Nathanael Rojas DO Work Phone: Comment on above: Comment: [...] HAVtotal antibody results to IgM (e.g., panel #[id number] HAVAntibody w/ Rfx).Performed at: [address] [id number] Director: Kamlesh Cleveland PhD, Phone: [phone] Start: 06-27-2024 Hepatitis C antibody measurement Dr. Nathanael Rojas DO Work Phone: Comment on above: Reactive: Presumptiv e evidence of antibodies to HCV. Follow CDC recommendations for supplemental testing.Non-Reactive: Antibodies to HCV were not detected; does not exclude the possibility of exposure to HCVReactive Results are presumptive evidence of antibodies to HCV. Follow CDC recommendations for supplemental testing.Order confirmation testing: HCV Quant by PCR testing - HCVPCR #[id number] Non Reactive: < 0.8 Equivocal: >/= 0.8 to < 1.0 Reactive: >/= 1.0The CDC requires that a reactive/equivocal HCV antibody result be sent out for confirmation. HCV Quant by PCR testing. Start: 05-17-2024 X-ray of cervical spine Dr. Nathanael Rojas DO Work Phone: Start: 04-09-2024 X-ray of lumbosacral spine Dr. Nathanael Rojas DO Work Phone: Start: 06-23-2023 CT of [...] w/le ast 12 lds w/i&r Lucas Aaron [employer] Work Phone: Start: 03-16-2022 Gluc bld gluc mntr d ev cleared fda spec home use Lucas Aaron [employer] Work Phone: Start: 03-07-2022 CT of face Start: 09-09-2021 Colon ca scrn not hi rsk ind Jerri Clemens PA-C Work Phone: Start: 09-09-2021 Colonoscopy Minh stratton MD Work Phone: Start: 05-26-2014 Colonoscopy Jerri kirk PA-C Work Phone: NEGATED: Highlighted rowStart: 01-04-2019 End: 01-04-2019 Documentation of current medications Carla Lester AT Plan of Treatment Date Care Activity Detail Author Start: 09-10-2031 Screening for malign ant neoplasm of colon [facility] Start: 09-06-2029 Screening for malign ant neoplasm of colon [facility] Start: 09-07-2027 Screening for malign ant neoplasm of colon [facility] Start: 09-09-2026 Colonoscopy COLONOSCOPY [facility] Start: 09-09-2026 COLORECTAL CANCER SCREENING COLORECTAL CANCER SCREENING [facility] Start: 12-09-2024 Influenza vaccination Influenza Vacc ine (#1) [facility] Start: 11-20-2024 Taking patient vital signs [facility] Start: 11-20-2024 End: 11-20-2024 [facility] Start: 11-20-2024 Ambulation without limitation [facility] Start: 11-20-2024 Medication education [facility] Start: 11-20-2024 End: 11-20-2024 Patient discharge [facility] Start: 10-18-2024 X-ray of cervical spine Cerv Spine 2 or 3 Views [facility] Start: 10-18-2024 XR Cervical spine 2 or 3 Views [facility] Start: 09-26-2024 Covid-19 Vaccine ( season) Covid-19 Vaccine ( season) [facility] Start: 09-13-2024 End: 09-13-2024 Patient encounter procedure 09/13/2024 3:00 PM EDT Office Visit General Surgery [address] [place] [address] Karly Alvarado APRN.TABLE ATTENDANT [address] [place] [address] 09/06 Colonoscopy Follow Up General Surgery Comment on above: 09/06 Colonoscopy Fo llow Up Start: 09-09-2024 Colonoscopy COLONOSCOPY [facility] Start: 09-09-2024 COLORECTAL CANCER SCREENING COLORECTAL CANCER SCREENING [facility] Start: 09-09-2024 Screening for malign ant neoplasm of colon [facility] Start: 09-06-2024 End: 09-06-2024 Patient encounter procedure 09/06/2024 10:15 AM EDT Appointment Ambulatory Surgery [address] [place] [address] Minh Gerber MD [address] [place], [place] [id number] COLONOSCOPY Ambulatory Surgery Comment on above: COLONOSCOPY Start: 08-22-2024 X-ray of cervical spine Cerv Spine 2 or 3 Views [facility] Start: 08-22-2024 XR Cervical spine 2 or 3 Views [facility] Start: 07-25-2024 Patient referral [facility] Work Phone: Start: 07-11-2024 Patient discharge [facility] Start: 07-11-2024 Catheterization of vein [facility] Start: 07-11-2024 Application of intermittent pneumatic compression device [facility] Start: 07-10-2024 [facility] Start: 07-10-2024 Following clinical pathway protocol [facility] Start: 07-10-2024 Allograft for spine surgery only structural SP BONE ALGRFT STRUCT ADD-ON [facility] Start: 07-10-2024 Anesthesia extensive spine & spinal cord ANESTH SPINE CORD SURGERY [facility] Start: 07-10-2024 Anterior instrumenta tion 2-3 vertebral segments INSERT SPINE FIXATION DEVICE [facility] Start: 07-10-2024 Arthrd ant interbody decompress cervical belw c2 ARTHRD ANT NTRBDY CERVICAL [facility] Start: 07-10-2024 Arthrd ant interdy c ervcl belw c2 ea addl ntrspc ARTHRD ANT NTRBD CERVICAL EA [facility] Start: 07-10-2024 Following clinical pathway protocol [facility] Start: 07-10-2024 Application of device [facility] Start: 07-10-2024 Consultation [facility] Start: 07-10-2024 Admission procedure [facility] Start: 07-10-2024 Assessment of risk o f venous thromboembolism [facility] Start: 07-10-2024 Following clinical pathway protocol [facility] Start: 07-10-2024 Incentive spirometry [facility] Start: 07-10-2024 Introduction of urin macrina catheter [facility] Start: 07-10-2024 Measuring intake and output [facility] Start: 07-10-2024 Neurovascular assessment [facility] Start: 07-10-2024 Oxygen therapy [facility] Start: 07-10-2024 Patient education [facility] Start: 07-10-2024 Provision of activit y privileges [facility] Start: 07-10-2024 Referral to occupati onal therapist [facility] Start: 07-10-2024 Referral to service [facility] Start: 07-10-2024 Taking patient vital signs [facility] Start: 07-10-2024 End: 07-10-2024 [facility] Start: 05-23-2024 Shingrix Vaccine (2 of 2) Carney grix Vaccine (2 of 2) [facility] Start: 04-10-2024 Advance Directive Discussion Advance Directive Discussion [facility] Start: 01-17-2023 Pneumococcal Vaccine : Age 65+ (2 - PCV) Pneumococcal Vaccine: Age 65+ (2 - PCV) [facility] Start: 01-09-2023 DIABETES SCREEN DIABETES SCREEN [facility] Start: 01-09-2023 Diabetes Screening Diabetes Screenin g [facility] Start: 01-02-2023 Bacteria identified in Urine by Culture Urine Culture [facility] Start: 01-02-2023 [facility] Start: 12-12-2022 [facility] Start: 12-12-2022 End: 12-12-2022 Blood culture [facility] Start: 12-12-2022 Bacteria identified in Blood by Culture Blood Culture [facility] Start: 12-12-2022 Bacteria identified in Urine by Culture Urine Culture [facility] Start: 12-09-2022 Sherwin lithotrp xtrcor p shock wave w/o water bath ANESTH KIDNEY STONE DESTRUCT [facility] Start: 12-09-2022 Cysto/uretero w/lithotripsy &indwell stent insrt CYSTO/URETERO W/LITHOTRIPSY [facility] Start: 12-09-2022 Patient discharge [facility] Start: 12-09-2022 Ambulation without limitation [facility] Start: 12-09-2022 Medical regimen orde rs management [facility] Start: 12-09-2022 Medication education [facility] Start: 12-09-2022 Taking patient vital signs [facility] Start: 12-09-2022 [facility] Start: 12-09-2021 Influenza vaccination INFLUENZ A (Season Ended) [facility] Start: 07-07-2021 COVID-19 VACCINE (4 - Booster for Moderna series) COVID-19 VACCINE (4 - Booster for Moderna series) [facility] Start: 04-10-2021 ADVANCE DIRECTIVE DISCUSSION ADVANCE DIRECTIVE DISCUSSION [facility] Start: 05-26-2019 Colonoscopy COLONOSCOPY [facility] Start: 05-26-2019 COLORECTAL CANCER SCREENING COLORECTAL CANCER SCREENING [facility] Start: 01-04-2019 End: 01-04-2019 Appointment Appointment [facility] Work Phone: Start: 11-09-2015 Medicare Annual Well ness Visit Medicare Annual Wellness Visit [facility] Start: 08-17-2015 Fall risk assessment Falls Risk Asse ssment [facility] Start: 08-17-2015 PNEUMOCOCCAL: 65+ (1 - PCV) PNEUMOCOCCAL: 65+ (1 - PCV) [facility] Start: 08-17-2015 PNEUMOVAX AGE 65 AND OVER WITH 5YR LOOKBACK (#1) PNEUMOVAX AGE 65 AND OVER WITH 5YR LOOKBACK (#1) [facility] Start: 2000 Administration of he rpes zoster vaccine Zoster Vaccines (1 of 2) [facility] Start: 2000 Screening for malign ant neoplasm of colon Flexible sigmoidoscopy [facility] Start: 2000 SHINGRIX VACCINE (1 of 2) CARNEY GRIX VACCINE (1 of 2) [facility] Start: 08-17-1995 COLOGUARD (FIT-DNA) COLOGUARD (FIT-D NA) [facility] Start: 08-17-[address] [facility] Start: 08-17-1995 FECAL OCCULT BLOOD FECAL OCCULT BLOO D [facility] Start: 08-17-1995 Screening for malign ant neoplasm of colon [facility] Start: 08-17-1995 SIGMOIDOSCOPY SIGMOIDOSCOPY [facility] Start: 1985 [facility] Start: 1985 LIPID SCREEN LIPID SCREEN [facility] Start: 1969 Urine microalbumin profile [facility] Start: 1968 Anxiety Screening Anxiety Screening [facility] Start: 1968 Depression Screening Depression Scre ening [facility] Start: 1968 HEPATITIS C [facility] Start: 1968 Hepatitis C screening Hepatitis C Sc [facility] Start: 1962 Adult depression screening assessment [facility] Start: 1953 History and physical examination, annual for health maintenance Wellness Visit [facility] Start: 1950 Prostate specific an tigen measurement PSA Level [facility] Start: 1950 Screening for malign ant neoplasm of colon [facility] Start: 1950 Tetanus vaccination Tetanus: Every 1 0yrs [facility] Patient Education [facility] Work Phone: Patient referral [facility] Work Phone: End: 08-12-2025 Screening colonoscopy COLONOSCOPY SCREENING Endoscopy Routine Screen for colon cancer History of colonic polyps 1 Occurrences starting 08/12/2024 until 08/12/2025 [facility] Work Phone: Comment on above: 1 Occurrences starti ng 08/12/2024 until 08/12/2025 SURGICAL PATHOLOGY [facility] Work Phone: Comment on above: Release Upon Orderin g for 1 Occurrences starting 09/09/2021, 1 completed Tissue Pathology bio psy report [facility] Work Phone: Comment on above: Release Upon Orderin g for 1 Occurrences starting 09/06/2024, 1 completed XR Abdomen Single view [facility] Immunizations Immunization Date Immunization Notes Care Provider Matthew arizmendi 03-11-2024 influenza virus vaccine, unspecified formulation Karly Alvarado APRN.TABLE ATTENDANT Work Phone: [facility] 06-24-2020 Covid (Moderna) [facility] 05-27-2020 Covid (Moderna) [facility] 02-08-2019 Influenza virus vaccine [facility] Payers Date Payer Category Payer Self-pay [id number] 2022 Medicare [id number] 2021 Unknown [employer]MO [employer] [place] [employer] [id number] 2021-Present [phone] [address] [place] [address] [id number] 2019 Private Health Insurance MMO MEDICARE SUPPLEMENT [id number] 2019 Unknown MMO MMO MEDICARE SUPPLEMENT [id number] 2019-Present [phone] [address] [place] [address] Indemnity [id number] 2019 Unknown [id number] 2016 Unknown [id number] 2015 Medicare MEDICARE MEDICAR E A AND B [id number] 2015-Present [phone] [facility] [address] [place] [address] Medicare [id number] 2015 Medicare [id number] 2006 Medicare [id number] 1950 Unknown [id number] 2.16.840.1.392374.3.579.2. 903 1950 Unknown [id number] 2.16.840.1.342211.3.579.2. 627 1950 Unknown [id number] 2.16.840.1.001869.3.579.2. 627 Unknown [id number] 2.16.840.1.625683.3.579.2. 462 Unknown [id number] 2.16.840.1.671810.3.579.2. 462 Unknown [id number] 2.16.840.1.415502.3.579.2. 462 Unknown [id number] 2.16840.1.077044.3.579.2. 462 Unknown [id number] 2.16.840.1.429461.3.579.2. 462 Unknown [id number] 2.16.840.1.613251.3.579.2. 462 Unknown [id number] 2.16.840.1.145433.3.579.2. 462 Unknown [id number] 2.16.840.1.148360.3.579.2. 462 Unknown [id number] 2.16840.1.652148.3.579.2. 462 Unknown [id number] 2.16.840.1.957578.3.579.2. 462 Unknown [id number] 2.16.840.1.200029.3.579.2. 462 Unknown [id number] 2.16.840.1.807277.3.579.2. 462 Unknown [id number] 2.16.840.1.828530.3.579.2. 462 Unknown [id number] 2.16.840.1.051452.3.579.2. 462 Unknown [id number] 2.16.840.1.359699.3.579.2. 462 Unknown [id number] 2.16.840.1.272589.3.579.2. 462 Unknown [id number] 2.16.840.1.672350.3.579.2. 462 Unknown [id number] 2.16.840.1.168854.3.579.2. 462 Unknown [id number] 2.16.840.1.096607.3.579.2. 462 Unknown [id number] 2.16.840.1.448460.3.579.2. 462 Unknown [id number] 2.16.840.1.693358.3.579.2. 462 Unknown [id number] 2.16.840.1.047040.3.579.2. 462 Unknown [id number] 2.16.840.1.815928.3.579.2. 462 Unknown [id number] 2.16.840.1.195505.3.579.2. 462 Social History Date Type Detail Facility Start: 06-19-2019 End: 01-02-2023 Assertion Unknown if ever smoked [facility] Work Phone: Start: 05-09-2014 End: 11-14-2024 Tobacco smoking status NHIS Never smoked tobacco [facility] Start: 05-09-2014 End: 08-12-2024 Tobacco use and exposure User of smokeless tobacco [facility] History of tobacco use Snuff User [facility] of tobacco [facility] Start: 08-03-2021 Alcohol intake Current non-drinker of alcohol (finding) [facility] Start: 1950 Sex Assigned At Not on file [facility] Start: 07-24-2021 End: 03-16-2022 Exposure to SARS-CoV-2 (event) Not sure [facility] Start: 09-09-2021 End: 09-10-2024 Alcohol intake Current drinker of alcohol (finding) [facility] Start: 09-09-2021 History SDOH Alcohol Comment Occasionally [facility] Start: 06-08-2019 Spouse/ Significant Other [facility] Start: 06-19-2019 Chew [facility] Start: 1950 Sex Assigned At Male [facility] Start: 03-16-2022 Tobacco use and exposure Smokeless tobacco non-user [facility] Start: 03-16-2022 Alcohol intake Ex-drinker (finding) [facility] Start: 06-26-2024 Tobacco smoking status NCIS Smokes tobacco daily (finding) [facility] Start: 07-11-2024 Sex Male (finding) [facility] Start: 08-12-2024 End: 09-06-2024 History of Social function [facility] Start: 08-12-2024 End: 09-06-2024 Tobacco use panel [facility] National Score (1-10 0), lower number is lower risk 53 [facility] Start: 07-27-2021 Sexual orientation Heterosexual (finding) [facility] Medical Equipment Procedure Code Equipment Code [...] Result Facility 11-20-2024 Functional status Bathroom Privilege [facility] Work Phone: 07-11-2024 Functional status Chair [facility] Work Phone: 12-09-2022 Functional status Ambulates;Bath room Privilege [facility] Work Phone: 06-02-2014 Are you deaf, or do you have serious difficulty hearing No 06/02/2014 2:08 PM Monique Craig LPN No [facility] Work Phone: 06-02-2014 Are you blind, or do you have serious difficulty seeing, even when wearing glasses No 06/02/2014 2:08 PM Monique Craig LPN No [facility] 06-02-2014 Do you have serious difficulty walking or climbing stairs No 06/02/2014 2:08 PM Monique Craig LPN No [facility] 06-02-2014 Do you have difficul ty dressing or bathing No 06/02/2014 2:08 PM Monique Craig LPN No [facility] 06-02-2014 Because of a physica l, mental, or emotional condition, do you have difficulty doing errands alone such as visiting a physician's office or shopping No 06/02/2014 2:08 PM Monique Craig LPN No [facility] Mental Status Date Assessment Result Facility 11-20-2024 Cognitive function Level Of Cons ciousness Sedated [facility] Work Phone: 11-20-2024 Cognitive function Voice/Name [facility] Work Phone: 07-11-2024 Cognitive function Voice/Name [facility] Work Phone: 07-11-2024 Cognitive function Appropriate;Cooperativ e [facility] Work Phone: 01-02-2023 Cognitive function Level Of Cons ciousness Awake;Alert;Appropriate;Fol lows Commands [facility] Work Phone: 12-12-2022 Cognitive function Level Of Cons ciousness Awake;Alert;Appropriate [facility] Work Phone: 12-09-2022 Cognitive function Light Pain [facility] Work Phone: 06-02-2014 Because of a physica l, mental, or emotional condition, do you have serious difficulty concentrating, remembering, or making decisions No 06/02/2014 2:08 PM Monique Craig LPN No [facility] Clinical Notes 08-03-2021 to 11-20-2024 Note Date & Type Note Facility 11-20-2024 Consult note [facility] 11-20-2024 Discharge summary [facility] 11-20-2024 Consult note [facility] 11-20-2024 Procedure note [facility] 11-20-2024 Consult note Note Date/Time November 20, 2024 1:39pm [facility] Medical Records Department [address] [place] [address] Pre-Anesthesia Evaluation 11/20/24 1335 MR#: [id number] Acct: [id number] Name: TERESA RAINEY Rep #:[id number] 1 : 1950 74 From: Yang Reese PCP: Dr. Nathanael Rojas, DO Status:REG SDC Y Race: C Location: [place] [address] ASA Classification* ASA Classification ASA Classification: 2 [...] Insertion Stent Anesthesia History Anesthesia History - kiln door builder: Anesthesia History - kiln door builder Hx Hospitalization Yes: 08/02 CERVICAL FUSION 11/14/24 [...] take am of surgery PONV PONV - kiln door builder: PONV - kiln door builder Female No 11/14/24 11:02 HX of Motion [...] 11/20/24 13:01 Respiratory Assessment Respiratory Assessment - kiln door builder: Respiratory Tract Infection Hx - kiln door builder Hx Respiratory Tract Infection No 11/14/24 11:02 STOP Sleep Apnea STOP Sleep Apnea - kiln door builder: STOP Sleep Apnea - kiln door builder Hx Hypertension Yes 11/14/24 11:02 Hx Sleep [...] Tobacco Use History Tobacco Use History - kiln door builder: Tobacco Use History - kiln door builder Tobacco Use Smoking Status Never smoker 11/14/24 11:02 Hx Tobacco Use Yes 11/14/24 11:02 Years Smoking Packs Smoked per Day Smoking Cessation Date was within the last 15 years Hx Smoking Cessation Date Hx Smoking Cessation Counseling Hematologic Medial History Hematologic Hx - kiln door builder: 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 Specify any problems Hx of Preganancy in last 3 N/A 11/14/24 11:02 Months Nurse Filling Out Transfusion NAVNEET 11/14/24 11:02 & Questions: Date: 11/14/24 11/14/24 11:02 Time: 11:04 11/14/24 11:02 Patient unable to answer at this time (ie. confused, unrespo /Reproduction History /Reproductive History - kiln door builder: /Reproductive Hx- kiln door builder Hx Now No 11/14/24 11:02 Gestational Age [...] 1 ea PO DAILY 05/20/1907/09 History naphazoline 0.57158 %-pheniramine 2 drp OP PRN PRN All [...] MD Cosigner Signature: Date CC: ~ Signed [facility] Work Phone: 1(398) 467-817808-13-2025 Radiology Diagnostic study note [facility] Imaging Services [address] [place], [place] [address] Abdomen Single View MR#: [id number] Acct: [id number] Name: TERESA RAINEY Rep #: [id number] 0 : 1950 M 74 From: Tyron Sprague MD PCP: Dr. Nathanael Rojas DO Status: [facility] Study:Abdomen Single View Date of Exam: 11/20/24 Exam# [id number] Ordering Dr: Alyssa Trinh MD PROCEDURE: ABDOMEN [...] renal or ureteral calcification seen. Reading Location: [id number] CC: Dr. Duke rTinh MD; Dr. Nathanael Rojas DO ~ Ems Manager: Signed [facility]08-13-[address] [facility] Medical Records Department [address] [place] [address] Pre-Anesthesia Evaluation 11/20/24 1335 MR#: [id number] Acct: [id number] Name: TERESA RAINEY Rep #:[id number] 1 : 1950 74 From: Yang Reese PCP: Dr. Nathanael Rojas, DO Status:REG SDC Y Race: C Location: [place] [address] ASA Classification* ASA Classification ASA Classification: 2 [...] Insertion Stent Anesthesia History Anesthesia History - kiln door builder: Anesthesia History - kiln door builder Hx Hospitalization Yes: 08/02 CERVICAL FUSION 11/14/24 [...] take am of surgery PONV PONV - kiln door builder: PONV - kiln door builder Female No 11/14/24 11:02 HX of Motion [...] 11/20/24 13:01 Respiratory Assessment Respiratory Assessment - kiln door builder: Respiratory Tract Infection Hx - kiln door builder Hx Respiratory Tract Infection No 11/14/24 11:02 STOP Sleep Apnea STOP Sleep Apnea - kiln door builder: STOP Sleep Apnea - kiln door builder Hx Hypertension Yes 11/14/24 11:02 Hx Sleep [...] Tobacco Use History Tobacco Use History - kiln door builder: Tobacco Use History - kiln door builder Tobacco Use Smoking Status Never smoker 11/14/24 11:02 Hx Tobacco Use Yes 11/14/24 11:02 Years Smoking Packs Smoked per Day Smoking Cessation Date was within the last 15 years Hx Smoking Cessation Date Hx Smoking Cessation Counseling Hematologic Medial History Hematologic Hx - kiln door builder: 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 Hx of Blood Transfusion No 11/14/24 11:02 [...] confused, unrespo /Reproduction History /Reproductive History - kiln door builder: /Reproductive Hx- kiln door builder Hx Now No 11/14/24 11:02 Gestational Age [...] 1 ea PO DAILY 05/20/1907/09 History naphazoline 0.11598 %-pheniramine 2 drp OP PRN PRN All [...] MD Cosigner Signature: Date CC: ~ Signed [facility]08-04-2025 Radiology Diagnostic study note [facility] Imaging Services [address] [place], [place] [address] Abdomen/Pelvis without Cont MR#: [id number] Acct: [id number] Name: TERESA RAINEY Rep #: [id number] 7 : 1950 M 74 From: Tyron Sprague MD PCP: Dr. Nathanael Rojas, DO Status: REG CLI Study:Abdomen/Pelvis without Cont Date of Exa m: 11/11/24 Exam# [id number] Ordering Dr: Esthela Leo PROCEDURE: ABDOMEN/PELVIS WITHOUT [...] its lumen. Clinical correlation recommended. Reading Location: [facility] CC: Dr. Nathanael Rojas, DO; Esthela [place] ~ Ems Manager: Signed [facility]06-06-2025 History of Present illness Narrative* Karly Alvarado APRN.TABLE ATTENDANT - 09/13/2024 3:00 PM EDT FOLLOW UP VISIT - ENDOSCOPY Teresa Rainey 1950 [id number] REFERRING PHYSICIAN: No referring provider defined for [...] as needed for worsening/no improvement. Karly Alvarado APRN.TABLE ATTENDANT [facility] NoteHNO ID: [id number] Author: KARLY ALVARADO APRN.TABLE ATTENDANT Service: ? Author Type: Nurse Practitioner Type: Progress Notes Filed: 09/13/2024 15:08 Note Text: FOLLOW UP VISIT - ENDOSCOPY Teresa Rainey 1950 [id number] REFERRING PHYSICIAN: No referring provider defined for [...] as needed for worsening/no improvement. Karly Alvarado APRN.CNPGrand [facility] Joint [facility]05-30-20[facility] Note* Discharge Instr - Nursing - Meme Brower RN - 09/06/2024 10:12 AM EDT The patient received a copy of Colonoscopy discharge instructions that contain information for how to contact the physician who performed the procedure and when to seek medical care. [facility]05-30-2025 Miscellaneous Notes* Discharge Instr - Nursing - Meme Brower RN - 09/06/2024 10:12 AM EDT The patient received a copy of Colonoscopy discharge instructions that contain information for how to contact the physician who performed the procedure and when to seek medical care. [facility]25 History and physical note * Minh Gerber MD - 09/06/2024 9:45 AM EDT HISTORY AND PHYSICAL Teresa Rainey : 1950 REFERRING PHYSICIAN: Minh Gerber III [address] [facility] [address] CHIEF COMPLAINT: Patient presents with: Consult HPI: [...] colonoscopy was 09/[address] Gerber at [facility]. Sedation:Fentanyl 50 micrograms IV, Midazolam 4 mg [...] mouth every 6 hours as needed. Fish Oil-[place]-3 Fatty Acids (FISH OIL) 340-1,000 mg cap [...] 152/79, pulse 82, height 167.6 cm (5' 6), weight 96.6 kg (213 lb), SpO2 98%. [...] edited and updated as necessary. Karly Alvarado APRN.TABLE ATTENDANT UPDATED HISTORY AND PHYSICAL EXAMINATION SERVICE DATE: [...] DATE: September 06, 2024 TIME: 9:31 AM [facility]05-30-2025 History and physical note* Minh Gerber MD - 09/06/2024 9:45 AM EDT HISTORY AND PHYSICAL Teresa Rainey : 1950 REFERRING PHYSICIAN: Minh Gerber III [address] [facility] [address] CHIEF COMPLAINT: Patient presents with: Consult HPI: [...] colonoscopy was 09/[address] Gerber at [facility]. Sedation:Fentanyl 50 micrograms IV, Midazolam 4 mg [...] mouth every 6 hours as needed. Fish Oil-[place]-3 Fatty Acids (FISH OIL) 340-1,000 mg cap [...] DX W/COLLJ SPEC WHEN PFRMD 05/26/2014 Repeat 2020 CYSTOSCOPY,URETEROSCOPY,LITHOTRIPSY 2009 LITHOTRIPSY XTRCORP SHOCK WAVE 2008 [...] 152/79, pulse 82, height 167.6 cm (5' 6), weight 96.6 kg (213 lb), SpO2 98%. [...] edited and updated as necessary. Karly Alvarado APRN.TABLE ATTENDANT UPDATED HISTORY AND PHYSICAL EXAMINATION SERVICE DATE: [...] 2024 TIME: 9:31 AM documented [facility]05-[facility]25 History of Present illness Narrative* Karly Alvarado APRN.TABLE ATTENDANT - 08/12/2024 2:30 PM EDT HISTORY AND PHYSICAL Teresa Rainey : 1950 REFERRING PHYSICIAN: Minh Gerber III [address] [facility] [address] CHIEF COMPLAINT: Patient presents with: Consult HPI: [...] colonoscopy was 09/[address] Gerber at [facility]. Sedation:Fentanyl 50 micrograms IV, Midazolam 4 mg [...] mouth every 6 hours as needed. Fish Oil-[place]-3 Fatty Acids (FISH OIL) 340-1,000 mg cap [...] SKIN BIOPSY HX TONSILLECTOMY PRIMARY/SECONDARY <AGE 12 1968 Tonsillectomy FAMILY HISTORY Problem Relation Age of [...] 152/79, pulse 82, height 167.6 cm (5' 6), weight 96.6 kg (213 lb), SpO2 98%. [...] edited and updated as necessary. Karly Alvarado APRN.TABLE ATTENDANT documented in [facility]05-[facility]-2025 NoteHNO ID: [id number] Author: KARLY ALVARADO APRN.TABLE ATTENDANT Service: ? Author Type: Nurse Practitioner Type: Progress Notes Filed: 08/12/2024 14:53 Note Text: HISTORY AND PHYSICAL Teresa Rainey : 1950 REFERRING PHYSICIAN: Minh Gerber III [address] [facility] [address] CHIEF COMPLAINT: Patient presents with: Consult HPI: [...] a history of ulcers/ peptic ulcer disease. Niida notes a hx of T2DM, HTN, HLD. He denies CP, SOB, dizziness, palpitations, syncope, edema, recent hospitalizations Teresa has undergone prior endoscopy. Last colonoscopy was 09/[address] Gerber at [facility]. Sedation:Fentanyl 50 micrograms IV, Midazolam 4 mg [...] mouth every 6 hours as needed. Fish Oil-[place]-3 Fatty Acids (FISH OIL) 340-1,000 mg cap [...] DX W/COLLJ SPEC WHEN PFRMD 05/26/2014 Repeat 2020 CYSTOSCOPY,URETEROSCOPY,LITHOTRIPSY 2009 LITHOTRIPSY XTRCORP SHOCK WAVE 2008 [...] 152/79, pulse 82, height 167.6 cm (5' 6), weight 96.6 kg (213 lb), SpO2 98%. [...] of colon polyps, family (more content not included)...[facility]04-17-2025 Evaluation note* Diagnosis Onset Date Resolution Status Admit Date Status post cervical spinal fusion acute July 25, 2024 1:36pm Status post cervical spinal fusion acute August 22, 2024 2 :24pm Status post cervical spinal fusion acute October 18, 2024 12:58pm [facility] Work Phone: 1(716) 194-787904-03-2025 Progress note [facility] Medical Records Department [address] [place] [address] Progress Note - Orthopedic 07/11/24 1229 MR#: [id number] Acct: [id number] Name: TERESA RAINEY Rep #:[id number] 1 : 1950 73 From: Florina KYLE PCP: Dr. Nathanael Rojas, DO Status:ADM SILVANO Location: MS3 BS741-3 Subjective Subjective Postop day 1 C4-6 ACDF. [...] No fracture or malalignment identified. Reading Location: [facility] Physical Exam Narrative Gauze and Tegaderm was [...] Cosigner Signature (if applicable): CC: ~ Signed [facility]04-03-2025 Radiology Diagnostic study note [facility] Imaging Services [address], [place] [address] Cerv Spine 2 or 3 Views MR#: [id number] Acct: [id number] Name: TERESA RAINEY Rep #: [id number] 1 : 1950 M 73 From: Maninder Puckett MD PCP: Dr. Nathanael Rojas, DO Status: ADM SILVANO Study:Cerv Spine 2 or 3 Views Date of Exam: 07/11/24 Exam# [id number] Ordering Dr: Alessandro Metz PROCEDURE: CERV SPINE [...] prevertebral soft tissue swelling/thickening. Left anterior neck [place] drain, safety pin and cervical collar noted. The visualized apices appear clear. RAD/Cerv Spine 2 or 3 Views IMPRESSION: Status post anterior cervical disc fusion with intervertebral disc spacers C4 through C6 appears anatomic and intact as above. No fracture or malalignment identified. Reading Location: [facility] CC: ANABELLA Warren; Dr. Nathanael Rojas DO ~ Ems Manager: Signed [facility]04-02-2025 Progress note Author [facility]al [facility] Note Date/Time July 10, 2024 7:28 pm [facility] Medical Records Department [address] [place] [address] Progress Note 07/10/24 1707 MR#: [id number] Acct: [id number] Name: TERESA RAINEY Rep #:[id number] 9 : 1950 73 From: Racheal Neves MD PCP: Dr. Nathanael Rojas DO Status:ADM SILVANO Location: [facility] KO138-2 Subjective Subjective Patient is a 73-year-old male [...] plate and screw fixation device. Reading Location: [place] [address] Physical Exam Const alert, oriented x3 and [...] with you. Charges/Coding Visit Charges Inpatient E&M: 56971 Subs Hosp L2 07/10/241927 <Electronically signed by Racheal Neves MD> Racheal Neves MD Cosigner Signature (if applicable): CC: ~ Signed [facility] Work Phone: 1(211) 379-832204-02-2025 Progress note [facility] Medical Records Department [address] [facility] [place] [address] Progress Note 07/10/24 1707 MR#: [id number] Acct: [id number] Name: TERESA RAINEY Rep #:[id number] 9 : 1950 73 From: Racheal Neves MD PCP: Dr. Nathanael Rojas, DO Status:ADM SILVANO Location: [place] [address]-1 Subjective Subjective Patient is a 73-year-old male [...] plate and screw fixation device. Reading Location: [facility] Physical Exam Const alert, oriented x3 and [...] with you. Charges/Coding Visit Charges Inpatient E&M: 23817 Subs Hosp L2 07/10/241927 Racheal Neves MD Cosigner Signature (if applicable): CC: ~ Signed [facility]04-02-2025 Consult note Author Jann Winston [facility] Note Date/Time July 10, 2024 11:[address] [facility] Medical Records Department [address] [place] [address] Anesthesia Postop Eval II 07/10/24 1129 MR#: [id number] Acct: [id number] Name: TERESA RAINEY Rep #:[id number] 2 : 1950 73 From: Jann Winston MD PCP: Dr. Nathanael Rojas, DO Status:REG SDC Y Race: C Location: [address] Anesthesia Postop Eval I Sum Postop Eval Completion status Anesthesia document: Postop Eval 1 completed: Yes Anesthesia Postop Eval I Summary Anesthesia Postop Eval I Summary: Anesthesia Postop Eval I: Assessment Summary Airway patent Yes 07/10/24 10:59 SENIOR FRONT END ENGINEER.PKEL Spontaneous unlabored Yes 07/10/24 10:59 SENIOR FRONT END ENGINEER.PKEL respirations Mental status Asleep 07/10/24 10:59 SENIOR FRONT END ENGINEER.PKEL nausea No 07/10/24 10:59 SENIOR FRONT END ENGINEER.PKEL Vomiting No 07/10/24 10:59 SENIOR FRONT END ENGINEER.PKEL Anesthesia Postop Eval I: Fluid Summary Crystalloid volume administer 2,400 07/10/24 10:59 SENIOR FRONT END ENGINEER.PKEL (ml) Colloids volume administered ( ml) Blood Product volume administered (ml) Total IV fluid infused 2,400 07/10/24 10:59 SENIOR FRONT END ENGINEER.PKEL Anesthesia Postop Eval I: Summary Notes Anesthesia Complication No 07/10/24 10:59 SENIOR FRONT END ENGINEER.PKEL Anesthesia Complication Comment: Post-operative progress note Anesthesia: Postop Eval II Evaluation Mental status: Awake Pain Level: 0 nausea: No Vomiting: No 07/10/24 1129 <Electronically signed by Jann Winston MD > Date _ Jann Winston MD Cosign Signature: Date CC: ~ Signed [facility] Work Phone: 1(214) 335-419504-02-2025 Consult note Author Chon Epps [facility] Note Date/Time July 10, 2024 10:[address] [facility] Medical Records Department [address] [place] [address] Anesthesia Postop Eval I 07/10/24 1058 MR#: [id number] Acct: [id number] Name: TERESA RAINEY Rep #:[id number] 8 : 1950 73 From: Chon Epps CRNA PCP: Dr. Nathanael Rojas, DO Status:REG SDC Y Race: C Location: [address] Anesthesia: Postop Eval I Current Vital Signs [...] Postop Eval 1 completed: Yes 07/10/24 1059 <Electronically signed by Chon taylor CRNA> Date _ Chon Epps CRNA Cosigner Signature: Date CC: ~ Signed [facility] Work Phone: 1(814) 289-342504-02-[address] [facility] Medical Records Department [address] [place] [address] Anesthesia Postop Eval II 07/10/24 1129 MR#: [id number] Acct: [id number] Name: TERESA RAINEY Rep #:[id number] 2 : 1950 73 From: Jann Winston MD PCP: Dr. Natahnael Rojas, DO Status:REG [facility] Y Race: C Location: [place] [address] Anesthesia Postop Eval I Sum Postop Eval Completion status Anesthesia document: Postop Eval 1 completed: Yes Anesthesia Postop Eval I Summary Anesthesia Postop Eval I Summary: Anesthesia Postop Eval I: Assessment Summary Airway patent Yes 07/10/24 10:59 SENIOR FRONT END ENGINEER.PKEL Spontaneous unlabored Yes 07/10/24 10:59 SENIOR FRONT END ENGINEER.PKEL respirations Mental status Asleep 07/10/24 10:59 SENIOR FRONT END ENGINEER.PKEL nausea No 07/10/24 10:59 SENIOR FRONT END ENGINEER.PKEL Vomiting No 07/10/24 10:59 SENIOR FRONT END ENGINEER.PKEL Anesthesia Postop Eval I: Fluid Summary Crystalloid volume administer 2,400 07/10/24 10:59 SENIOR FRONT END ENGINEER.PKEL (ml) Colloids volume administered ( ml) Blood Product volume administered (ml) Total IV fluid infused 2,400 07/10/24 10:59 SENIOR FRONT END ENGINEER.PKEL Anesthesia Postop Eval I: Summary Notes Anesthesia Complication No 07/10/24 10:59 SENIOR FRONT END ENGINEER.PKEL Anesthesia Complication Comment: Post-operative progress note Anesthesia: Postop Eval II Evaluation Mental status: Awake Pain Level: 0 nausea: No Vomiting: No 07/10/24 1129 > Date _ Jann Winston MD Cosigner Signature: Date CC: ~ Signed [facility]04-02-2025 Radiology Diagnostic study note [facility] Imaging Services [address] [place], [place] [address] Cerv Spine 2 or 3 Views MR#: [id number] Acct: [id number] Name: TERESA RAINEY Rep #: [id number] 6 : 1950 M 73 From: Tyron Sprague MD PCP: Dr. Nathanael Rojas, DO Status: [facility] Study:Cerv Spine 2 or 3 Views Date of Exam: 07/10/24 Exam# [id number] Ordering Dr: Anneliese Yip MD PROCEDURE: Intraoperative [...] plate and screw fixation device. Reading Location: [place] [address] CC: Dr. Alexandre Yip MD; Dr. Nathanael Rojas, DO ~ Ems Manager: Signed [facility]04-02-[address] [facility] Medical Records Department [address] [place] [address] Anesthesia Postop Eval I 07/10/24 1058 MR#: [id number] Acct: [id number] Name: TERESA RAINEY Rep #:[id number] 8 : 1950 73 From: Chon Epps CRNA PCP: Dr. Nathanael Rojas DO Status:REG SDC Y Race: C Location: [place] [address] Anesthesia: Postop Eval I Current Vital Signs [...] Eval 1 completed: Yes 07/10/24 1059 y SENIOR FRONT END ENGINEER> Date _ Chon Epps CRNA Cosigner Signature: Date CC: ~ Signed [facility]04-02-2025 Procedure note [facility] Medical Records Department [address] [place] [address] Operative Report 07/10/24 1044 MR#: [id number] Acct: [id number] Name: TERESA RAINEY Rep #:[id number] : 1950 73 From: Alexandre Yip MD PCP: Dr. 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, kyphosis Post-Operative Diagnosis: Same Surgery/Procedure Performed: C4-6 ACDF recreational facilities motel manager: Madison Cart Attendant: Florina Metz Tasks completed by or first assist registered nurse: Closing, Removing tissue, Implanting device, Hemostasis: Electrocautery [...] and Implanted device Implanted device details: [employer]onic [place] Elite plate instrumentation Estimated Blood Loss: 30 cc Specimen collected: No Description of surgery: Preoperative diagnosis: C4-6 disc degeneration with stenosis, radiculomyelopathy, prior C6-7 fusion, kyphosis Postoperative diagnosis: Same Name of procedure: C4-6 anterior cervical discectomy and fusion with plate instrumentation - Anterior cervical fusion C4-5, CPT code 12981 - Anterior plate instrumentation C4-6, CPT code 60955/59 - Anterior cervical fusion C5-6, CPT code 58826/51 -C4-5 structural allograft bone with DBX, CPT code 15488 -C5-6 structural allograft bone with DBX, CPT code 80005 Attending surgeon: Alexandre Yip M.D. Anesthesia: Gen. endotracheal Estimated blood loss: 30 mL Complications: None Instrumentation used: [employer]tronic [place] Elite plate, LASR corticocancellous block Indications: The [...] Disc fragments were removed with the pituitary. Rosalia pins were placed in C4 and C5 [...] good pullout strength. A 42 mm [employer] [place] Elite plate was then fixedto C4-6 with [...] CC: Dr. Alexandre Yip MD; Dr. Nathanael Rojas, DO~ Signed [facility]04-02-2025 History and physical note Author Alexandre Yip [facility] Note Date/Time July 10, 2024 7:23 am [facility] Medical Records Department [address] [place] [address] History & Physical Exam 07/10/24 0723 MR#: [id number] Acct: [id number] Name: TERESA RAINEY Rep #:[id number] : 1950 73 From: Alexandre Yip MD PCP: Dr. Nathanael Rojas, DO [place] [facility] [place] [address] History and Physical Date of Admission: 07/10/24 MR#: [id number] Acct: [id number] Name: TERESA RAINEY Rep #: [id number] : 1950 Provider: Dr. Alexandre Yip MD Age/Sex: 73/M [place] [facility] [place] Status: Signed Intake Vital Signs 04/09/2412:56 07/04/2512:32 [...] ea PO DAILY 05/20/19 07/04/24 History naphazoline 0.12204 %-pheniramine 2 drp OP PRN PRN Allergies 05/20/1906/09 History 0.315 % eye drops diphenhydramine HCl 25 mg capsule 25 mg PO BID PRN Allergies 05/21/19 03/11/01 History docusate sodium 100 mg capsule 100 [...] CC: Dr. Alexandre Yip MD; Dr. Nathanael Rojas, DO~ Signed [facility] Work Phone: 1(933) 708-650004-02-2025 Consult note Author Jann yvette [facility] Note Date/Time July 10, 2024 6:[address] [facility] Medical Records Department [address] [place] [address] Pre-Anesthesia Evaluation 07/10/24 0646 MR#: [id number] Acct: [id number] Name: TERESA RAINEY Rep #:[id number] : 1950 73 From: Jnan Winston MD PCP: Dr. Nathanael Rojas, Status:REG [facility] [place] Race: C Location: [place] [address] ASA Classification* ASA Classification ASA Classification: 2 [...] C4-5 C5-6 Anesthesia History Anesthesia History - kiln door builder: Anesthesia History - kiln door builder Hx Hospitalization No 06/26/24 09:09 Any Problems [...] take am of surgery PONV PONV - kiln door builder: PONV - kiln door builder Female No 06/26/24 09:09 HX of Motion [...] 07/10/24 06:26 Respiratory Assessment Respiratory Assessment - kiln door builder: Respiratory Tract Infection Hx - kiln door builder Hx Respiratory Tract Infection No 06/26/24 09:09 STOP Sleep Apnea STOP Sleep Apnea - kiln door builder: STOP Sleep Apnea - kiln door builder Hx Hypertension Yes: CONTROLLED WITH MED 06/26/24 [...] Tobacco Use History Tobacco Use History - kiln door builder: Tobacco Use History - kiln door builder Tobacco Use Smoking Status Current every day smoker 06/26/24 09:09 Hx Tobacco Use Yes 06/26/24 09:09 Years Smoking Packs Smoked per Day Smoking Cessation Date was within the last 15 years Hx Smoking Cessation Date Hx Smoking Cessation Counseling Hematologic Medial History Hematologic Hx - kiln door builder: 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 Hx of Blood Transfusion No 06/26/24 09:09 [...] confused, unrespo /Reproduction History /Reproductive History - kiln door builder: /Reproductive Hx- kiln door builder Hx Now No 06/26/24 09:09 Gestational Age (in weeks): EDC: Hx Hx Para Hx Section SAB No 06/26/24 09:09 Active Medications Active Medications: Current Medications Generic Name Dose Route Start Last Admin Trade Name oJdie PRN Reason Stop Dose Admin Acetaminophen 1,000 [...] 1 ea PO DAILY 05/20/1907/09 History naphazoline 0.59967 %-pheniramine 2 drp OP PRN PRN All [...] MD Cosigner Signature: Date CC: ~ Signed [facility] Work Phone: 1(818) 884-368504-02-2025 History and physical note [facility] Medical Records Department [address] [place] [address] History & Physical Exam 07/10/24 07 MR#: [id number] Acct: [id number] Name: TERESA RAINEY Rep #:[id number] 2 : 1950 73 From: Alexandre Yip MD PCP: Dr. Nathanael Rojas, DO Status:[place] [facility] [address] History and Physical Date of Admission: 07/10/24 MR#: [id number] Acct: [id number] Name: TERESA RAINEY Rep #: [id number] : 1950 Provider: Dr. Alexandre Yip MD Age/Sex: 73/M Location: [facility] Status: Signed Intake Vital Signs 04/09/2412:56 07/04/2512:32 [...] ea PO DAILY 05/20/19 07/04/24 History naphazoline 0.22265 %-pheniramine 2 drp OP PRN PRN Allergies [...] CC: Dr. Alexandre Yip MD; Dr. Nathanael Rojas, DO~ Signed [facility]04-02-2025 [facility] Medical Records Department [address] [facility] [facility] [place] [address] History Physical Exam 07/10/24722 MR#: [id number] Acct: [id number] Name: RAINEYTERESASTEVEN JACOB Rep #: [id number] : 1950 73 From: Alexandre Yip MD PCP: Dr. Nathanael Rojas, Status:[facility] Location: [place] [address] History and Physical Date of Admission: 07/10/24 MR#: [id number] Acct: [id number] Name: TERESA RAINEY Rep #: [id number] : 1950 Provider: Dr. Alexandre Yip MD Age/Sex: 73/M Location: [facility] Status: Signed Intake Vital Signs 04/09/2412:56 07/04/2512:32 [...] ea PO DAILY 05/20/19 07/04/24 History naphazoline 0.72218 %-pheniramine 2 drp OP PRN PRN Allergies [...] by me, Dr. Alexandre Yip MD 07/04/24 2308. Part of today???s visit was documented by [...] his cervical spine on (more content not included)...[facility]04-02-[address] [facility] Medical Records Department [address] [place] [address] Pre-Anesthesia Evaluation 07/10/24 0646 MR#: [id number] Acct: [id number] Name: TERESA RAINEY NIDIA Rep #:[id number] : 1950 73 From: Jann Winston MD PCP: Dr. Nathanael Rojas, DO Status:REG SDC Y Race: C Location: [place] [address] ASA Classification* ASA Classification ASA Classification: 2 [...] C4-5 C5-6 Anesthesia History Anesthesia History - kiln door builder: Anesthesia History - kiln door builder Hx Hospitalization No 06/26/24 09:09 Any Problems [...] take am of surgery PONV PONV - kiln door builder: PONV - kiln door builder Female No 06/26/24 09:09 HX of Motion [...] 07/10/24 06:26 Respiratory Assessment Respiratory Assessment - kiln door builder: Respiratory Tract Infection Hx - kiln door builder Hx Respiratory Tract Infection No 06/26/24 09:09 STOP Sleep Apnea STOP Sleep Apnea - kiln door builder: STOP Sleep Apnea - kiln door builder Hx Hypertension Yes: CONTROLLED WITH MED 06/26/24 [...] Tobacco Use History Tobacco Use History - kiln door builder: Tobacco Use History - kiln door builder Tobacco Use Smoking Status Current every day smoker 06/26/24 09:09 Hx Tobacco Use Yes 06/26/24 09:09 Years Smoking Packs Smoked per Day Smoking Cessation Date was within the last 15 years Hx Smoking Cessation Date Hx Smoking Cessation Counseling Hematologic Medial History Hematologic Hx - kiln door builder: 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 Hx of Blood Transfusion No 06/26/24 09:09 [...] confused, unrespo /Reproduction History /Reproductive History - kiln door builder: /Reproductive Hx- kiln door builder Hx Now No 06/26/24 09:09 Gestational Age [...] 1 ea PO DAILY 05/20/1907/09 History naphazoline 0.78680 %-pheniramine 2 drp OP PRN PRN All [...] MD Cosigner Signature: Date CC: ~ Signed [facility]03-27-2025 Evaluation note* Diagnosis Onset Date Resolution Status [...] fusion acute August 22, 2024 2 :24pm [facility] [employer] [facility] Work Phone: [phone]) [phone] Evaluation note* Diagnosis Onset Date Resolution Status [...] spinal fusion acute October 18, 2024 12:58pm [facility] Work Phone: [phone] Evaluation note* Diagnosis Onset Date Resolution Status Admit Date Degeneration, intervertebral disc, thoracic acute May 17 1:19pm Spondylolisthesis, lumbar region acute May 17 1:19pm 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 resolved May 17, 2024 1:19pm Cervical myelopathy resolved 2024 1:19pm Degeneration, intervertebral disc, thoracic acute July [...] spinal fusion acute July 25, 2024 1:36pm [facility] [employer] Work Phone: [phone] Evaluation note* Diagnosis Onset Date Resolution Status [...] May 17, 2024 1:19pm Cervical myelopathy acute u 2024 1:19pm Degeneration, intervertebral disc, thoracic acute [...] spinal fusion acute July 10, 2024 10:42am [facility] Work Phone: 1([phone]) 387-801809-25-2023 Discharge summary Author Blas Copeland [facility] January 02, 2023 4:42pm Note Date/Time January 02, 2023 2:05pm [facility] Medical Records Department [address] [place] [address] Emergency Department Summary 01/02/23 MR#: [id number] Acct: [id number] Name: TERESA RAINEY Rep #:[id number] : 1950 72 From: Blas Copeland MD PCP: Dr. Nathanael Rojas, DO Status:REG ER Location: ED HPI History [...] just too weak. But he was not wobbly prior to this. He has no history of normal pressure hydrocephalus. Hehad an increase of his gabapentin recently but that was done after his first episode. Does not have a lateralizing findings. No headache. No vomiting. Heis eating and drinking. [facility] Medical History Arthritis Back pain Benign [...] DAILY 05/20/19 [History Last Taken Unknown] naphazoline 0.53811 %-pheniramine 0.315 % eye drops 2 drp OP PRN PRN Allergies 05/20/19 [History Last Taken 12/08/22] diphenhydramine HCl 25 mg capsule 25 mg PO BID PRN Allergies 05/21/19 [History Last Taken Unknown] docusate sodium 100 mg capsule 100 mg PO QHS PRN Constipation 05/21/19 [History Last Taken 12/08/22] amlodipine 5 mg tablet 5 mg PO DAILY 12/02/22 [History Last Taken 12/09/22] jmcmbiw-vtohmfalxyrig-pypyjfap 250 mg-250 mg-65 mg tablet (Excedrin Extra [...] he is alert and oriented x3. His fiuiov-bv-rwvz is actually pretty good for me. Family [...] and back and moved himself up [facility] bed. He is now walked to the [...] 70.8 H Lymph % (Auto) 17.4 L [place] % (Auto) 8.9 Eos % (Auto) 2.0 [...] Clarity Clear Urine pH 6.0 Ur Specific Filion 1.010 Urine Protein 30 H Urine Glucose [...] Diffuse nonspecific ST and T wave changes. DC interval, QRS duration and QTc are normal. [...] Qty: 20 0RF Primary Care Provider: Nathanael Rojas Referrals: Nathanael Rojas DO [Primary Care Provider] - 1 Week if not improving Activity Restrictions/Additional Instructions: Use individual reduction of medications and recording as we discussed. Disposition Disposition: Home, Self Care What to do if you have Problems For any increased pain, shortness of breath, bleeding, nausea or vomiting, chestpain, or any unexpected problems, contact your Primary Care Provider. Call [facility] ([phone]) or report to the closest Emergency Room. Call 911 if necessary. 01/02/231641 <Electronically signed by Blas Copeland MD> Cosigner Signature (if applicable): CC: Dr. Nathanael Rojas DO ~ Signed [facility] Work Phone: 1(100) 410-914709-01-2023 Discharge summary Author Duke Trinh [facility] December 09, 2022 9:15am Note Date/Time December 09, 2022 9:15am [facility] Medical Records Department [address] [place] [address] Instructions for Home/Discharge Instructions 12/09/2215 MR#: [id number] Acct: [id number] Name: TERESA RAINEY Rep #:[id number] 5 : 1950 72 From: Duke Trinh MD PCP: Dr. Nathanael Rojas, DO [place] [facility] Discharge Instructions Diet Discharge Diet: No restrictions Activity Discharge Activity: Return to Normal Activity and May Not Drive (while taking narcotic pain medications.) Follow Up Care Please Follow Up With: Duke Trinh MD When: Call [phone] for an appointment Test Results: Test results from this visit will be discussed in further detail at your follow- up appointment, if applicable. Discharge Plan Admission Primary Reason for Your Visit: right ,kidney stone Attending Provider: Duke Trinh Primary Care Provider: Nathanael Rojas Discharge Orders/Prescriptions Prescriptions: New ciprofloxacin HCl [Cipro] [...] Abdomen Single View (Routine) Timeframe: 20221209 Facility: [facility] - Location: [facility] Ordered By: Dr. Duke Trinh Referrals / Follow Up: Duke Trinh MD [Med Staff - Active Staff] - Nathanael Rojas DO [Primary Care Provider] - Disposition Disposition (needs filled in before D/C Order can be placed): Home, Self Care 12/09/22914<Electronically signed by Duke Trinh MD>Duke Trinh MD CC: Dr. Nathanael Rojas, ~ Signed [facility] Work Phone: 1([phone]) 739-716109-01-2023 History and physical note Author Duke Trinh [facility] December 09, 2022 9:15am Note Date/Time December 09, 2022 9:15am [facility] Medical Records Department [address] [place] [address] History & Physical Exam 12/09/22913 MR#: [id number] Acct: [id number] Name: TERESA RAINEY Rep #:[id number] : 1950 72 From: Duke Trinh MD PCP: Dr. Nathanael Rojas DO Status:[facility] Location: [place] [address] HPI - General General Date of Service: 12/09/22 Chief Complaint: Right multiple large kidney stones HPI Narrative TERESA RAINEY, is a 72 M who presents for a right ureteroscopy laser lithotripsy of stones and possible percutaneous approach. [facility] Medical History (Updated 12/02/22 @ [...] DAILY 05/20/19 [History Last Taken Unknown] naphazoline 0.29148 %-pheniramine 0.315 % eye drops 2 drp OP PRN PRN Allergies 05/20/19 [History Last Taken 12/08/22] diphenhydramine HCl 25 mg capsule 25 mg PO BID PRN Allergies 05/21/19 [History Last Taken Unknown] docusate sodium 100 mg capsule 100 mg PO QHS PRN Constipation 05/21/19 [History Last Taken 12/08/22] amlodipine 5 mg tablet 5 mg PO DAILY 12/02/22 [History Last Taken 12/09/22] tozffna-oelrurjtzhitg-zlonaquh 250 mg-250 mg-65 mg tablet (Excedrin Extra [...] CC: Dr. Duke Trinh MD; Dr. Nathanael Rojas, DO~ Signed [facility] Work Phone: [phone]) [phone] Procedure [facility] 03-16-2022 History of Present illness Narrative* Lucas Aaron, DO - 03/16/2022 9:23 AM EST Images from [...] (36.8 C) (Infrared) Resp 16 Ht 5' 6 Wt 94.3 kg (208 lb) SpO2 98% [...] Q-T Interval (corrected) QTC Calculation (Bezet) P Merrick R Merrick T Merrick Reviewed outside labs/imaging/notes: None IMPRESSION/PLAN Teresa Rainey [...] physician. Lucas Aaron DO documented in this [id number] History of Present illness Narrative* Jerri Clemens PA-C - 09/27/2021 1:53 PM EDT FOLLOW UP VISIT - ENDOSCOPY NAME: Teresa Rainey CLINIC NO.: [id number] DATE OF SERVICE: 09/27/2021 : 1950 REFERRING PHYSICIAN: Nathanael Rojas DO Teresa is a patient I am [...] C (97.7 F), height 167.6 cm (5' 6), weight 98.9 kg (218 lb), SpO2 98 [...] which included preparing to see the patient, flpo-by-wkwc patient care, completing clinical documentation, counseling and educating the patient/family/caregiver, independently interpreting results (not separately reported) and communicating results to the patient/family/caregiver. Jerri Clemens PA-C [facility] Instructions* Patient Instructions* Jerri Clemens PA-C - 09/27/2021 1:51 PM EDT The following instructions are important for you related to your office visit today with the [facility]. INSTRUCTIONS FOLLOWING A POLYP FOUND [...] you should contact our office immediately @ [phone] and ask to be transferred to the General Surgery department. documented [facility] Nurse Note* Meme Brower RN - [...] recommendations. Meme Brower RN documented [facility]22 History and physical note * Minh Gerber MD - 09/09/2021 8:00 AM EDT Images from the original note were not included. HISTORY AND PHYSICAL Teresa Kelly Rainey 1950 REFERRING PHYSICIAN: Nathanael Rojas DO CHIEF COMPLAINT: Consult (colonoscopy) HPI: The [...] SPEC WHEN PFRMD 05/26/14 Repeat 2019 CYSTOSCOPY,URETEROSCOPY,LITHOTRIPSY 2008 LITHOTRIPSY XTRCORP SHOCK [...] mouth every 6 hours as needed. Fish Oil-[place]-3 Fatty Acids (FISH OIL) 340-1,000 mg cap [...] entered by the nurse and reviewed by ok Nursing Notes: Ericka Mcknight RN 08/03/2021 1:50 [...] C (97.4 F), height 167.6 cm (5' 6), weight 98.9 kg (218 lb), SpO2 96 [...] patient was offered a surgery/procedure at a [facility]. I have counseled the patient regarding the [...] of colon cancer Consultation requested by Dr. Rojas for an opinion regarding surveillance colonoscopy due [...] 2021 TIME: 7:32 AM documented in [facility]22 Miscellaneous Notes* Telephone Encounter - Bobbi Dickerson - 08/04/2021 8:21 AM EDT Patient called my direct line and left voicemail stating 08/19 will NOT work for colonoscopy. I attempted to call patient but no answer and no voicemail. Sent a [employer] message. Bobbi Dickerson * Telephone Encounter - Bobbi Dickerson - 08/03/2021 2:20 PM EDT 08-19-2021 COLON ASC documented [facility] this [facility]04[facility]22 History of Present illness Narrative* Jerri Clemens PA-C - 08/03/2021 1:56 PM EDT HISTORY AND PHYSICAL Teresa Rainey 1950 REFERRING PHYSICIAN: Nathanael Rojas DO CHIEF COMPLAINT: Consult (colonoscopy) HPI: The [...] SPEC WHEN PFRMD 05/26/14 Repeat 2019 CYSTOSCOPY,URETEROSCOPY,LITHOTRIPSY 2008 LITHOTRIPSY XTRCORP SHOCK [...] mouth every 6 hours as needed. Fish Oil-[place]-3 Fatty Acids (FISH OIL) 340-1,000 mg cap [...] entered by the nurse and reviewed by ok Nursing Notes: Ericka Mcknight RN 08/03/2021 1:50 [...] C (97.4 F), height 167.6 cm (5' 6), weight 98.9 kg (218 lb), SpO2 96 [...] patient [facility]. I have counseled the patient [...] of colon cancer Consultation requested by Dr. Rojas for an opinion regarding surveillance colonoscopy due to personal history of colon polyps and family history of colon cancer. My final recommendations will be communicated back to the requesting physician by way of shared Medical record or letter to requestingphysician via US mail. Jerri Clemens PA-C documented in this encounterSam[facility]04-26-2022 Nurse Note* Ericka Mcknight RN - [...] 2014 Ericka Mcknight RN [facility] Author Alvaro Crews [facility] Note Date/Time November 20, 2024 5: 11pm [facility] Medical Records Department [address] [place] [address] Anesthesia Postop Eval I 11/20/24 1611 MR#: [id number] Acct: [id number] Name: TERESA RAINEY Rep #:[id number] : 1950 74 From: Alvaro VIEIRA PCP: Dr. Nathanael Rojas, DO Status:REG SDC Y Race: C Location: [place] [address] Anesthesia: Postop Eval I Current Vital Signs [...] CRNA Cosigner Signature: Date CC: ~ Signed [facility] Work Phone: Consult note Author Karen Neves [facility] Note Date/Time November 20, 2024 4: 39pm [facility] Medical Records Department [address] [place] [address] Anesthesia Postop Eval II 11/20/24 1638 MR#: [id number] Acct: [id number] Name: TERESA RAINEY Rep #:[id number] : 1950 74 From: Karen Neves CRNA PCP: Dr. Nathanael Rojas, DO Status:REG SDC Y Race: C Location: [place] [address] 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/24 16:11 SENIOR FRONT END ENGINEER.TNES Spontaneous unlabored Yes 11/20/24 16:11 SENIOR FRONT END ENGINEER.TNES respirations Mental status nausea No 11/20/24 16:11 SENIOR FRONT END ENGINEER.TNES Vomiting No 11/20/24 16:11 SENIOR FRONT END ENGINEER.TNES Anesthesia Postop Eval I: Fluid Summary Crystalloid volume administer 600 11/20/24 16:11 SENIOR FRONT END ENGINEER.TNES (ml) Colloids volume administered ( ml) Blood Product volume administered (ml) Total IV fluid infused 600 11/20/24 16:11 SENIOR FRONT END ENGINEER.TNES Anesthesia Postop Eval I: Summary Notes Anesthesia Complication No 11/20/24 16:11 SENIOR FRONT END ENGINEER.TNES Anesthesia Complication Comment: Post-operative progress note Anesthesia: Postop Eval II Evaluation Mental status: Awake Pain Level: 2 nausea: No Vomiting: No 11/20/24 1639 <Electronically signed by Karen shaw CRNA> Date _ Karen Neves CRNA Cosigner Signature: Date CC: ~ Signed [facility] Work Phone: Discharge summary Author Duke Trinh [facility] Note Date/Time November 20, 2024 5: 11pm [facility] Medical Records Department [address] [place] [address] Instructions for Home/Discharge Instructions 11/20/24 1558 MR#: [id number] Acct: [id number] Name: TERESA RAINEY Rep #:[id number] : 1950 74 From: Duke Trinh MD PCP: Dr. Nathanael Rojas, DO Status:REG SDC Discharge Instructions DC O2, CPAP, BIPAP needs Home O2 Discharge instructions: No Dressing / Incision Discharge Activity: Return to Normal Activity and May Not Drive (while taking narcotic pain medications.) Dressing / Incision Call your doctor if you observe: Fever of 101 or Higher Follow Up Care Please Follow Up With: Duke Trinh MD When: Call [phone] for an appointment Test Results: Test results from this visit will be discussed in further detail at your follow- up appointment, if applicable. Discharge Plan Admission Primary Reason for Your Visit: right ESWL and stent Attending Provider: Duke Trinh Primary Care Provider: Nathanael Rojas Instructions Print Language: South Sudanese Discharge Orders/Prescriptions Prescriptions: New ciprofloxacin HCl [Cipro] [...] mg tablet 100 mg PO DAILY vitamin S18-wfxqp acid 1,000-400 mcg tablet, sublingual 1 tab sublingual DAILY coenzyme Q10 [Co Q-10] 100 mg capsule 200 mg PO DAILY cyclobenzaprine 10 mg tablet 10 mg PO TID PRN (Reason: spasms) senna 8.6 mg capsule 8.6 mg PO BID PRN (Reason: constipation) Qty: 30 0RF Referrals / Follow Up: Duke Trinh MD [Med Staff - Active Staff] - Nathanael Rojas DO [Primary Care Provider] - Disposition Disposition (needs filled in before D/C Order can be placed): Home, Self Care 11/20/24 2573<Electronically signed by Duke Trinh MD>Duke Trinh MD CC: Dr. Nathanael Rojas DO ~ Signed [facility] Work Phone: Evaluation note* Diagnosis Encounter for screening for malignant neoplasm of colon- Primary Special screening for malignant neoplasms, colon Personal history of colonic polyps Family history of colon cancer Family history of malignant neoplasm of gastrointestinal tract documented in this encounter [facility] note* Diagnosis History of colonic polyps Personal history of colonic polyps Family history of colon cancer Family history of malignant neoplasm of gastrointestinal tract documented in this encounter [facility] note* Diagnosis Tubular adenoma- Primary Benign neoplasm of unspecified site Family history of colon cancer Family history of malignant neoplasm of gastrointestinal tract History of colonic polyps Personal history of colonic polyps documented in this encounter [facility] note* Diagnosis History of colonic polyps- Primary Personal history of colonic polyps Family history of colon cancer Family history of malignant neoplasm of gastrointestinal tract documented in this encounter [facility] noteNo assessment information availableWBethesda North [facility] Work Phone: evaluation note* Diagnosis Pre-op examination- Primary Myogenic ptosis of bilateral eyelids Essential hypertension Unspecified essential hypertension Mixed hyperlipidemia Type 2 diabetes mellitus with other ophthalmic complication, without long-term current use of insulin (HCC) documented in this encounter [facility] note* Diagnosis Screen for colon cancer- Primary Special screening for malignant neoplasms, colon History of colonic polyps Personal history of colonic polyps Family history of colon cancer Family history of malignant neoplasm of gastrointestinal tract documented in this encounter [facility] [place] [facility]* Diagnosis Encounter for screening for malignant neoplasm of colon- Primary Special screening for malignant neoplasms, colon Screen for colon cancer Special screening for malignant neoplasms, colon History of colonic polyps Personal history of colonic polyps documented in this encounter [facility] note* Diagnosis Adenomatous polyp- Primary Benign neoplasm of unspecified site documented in this encounter [facility] Discharge instructions Additional Instructions Use individual reduction of medications and recording as we discussed.[facility] Work Phone: Progress note Author Florina Metz [facility] Note Date/Time July 11, 2024 12:3 3pm [facility] Medical Records Department [address] [place] [address] Progress Note - Orthopedic 07/11/24 1229 MR#: [id number] Acct: [id number] Name: TERESA RAINEY Rep #:[id number] 1 : 1950 73 From: Florina KYLE PCP: Dr. Nathanael Rojas, DO Status:ADM SILVANO Location: MS3 [id number] Subjective Subjective Postop day 1 C4-6 ACDF. [...] No fracture or malalignment identified. Reading Location: [id number] Physical Exam Narrative Gauze and Tegaderm was [...] Cosigner Signature (if applicable): CC: ~ Signed [facility] Work Phone: Reason for referral (narrative)* Outpatient Procedure (Routine) - Closed Specialty Diagnoses / Procedures Referred By Sadia t Referred To Contact [facility] Diagnoses History of colonic polyps Family history of colon cancer Procedures COLONOSCOPY SCREENING COLONOSCOPY FLX DX W/COLLJ SPEC WHEN Jerri Borges PA-C [address] [place] [address] [facility] [address] [place] [id number] Referral ID Status Reason Start Date Expiration Date V isits Requested Visits Authorized [id number] Closed Auto-Generate d Referral 08/03/2021 08/03/2022 1 1 [facility] for referral (narrative)* Outpatient Procedure (Routine) - Closed Specialty Diagnoses / Procedures Referred By Sadia banerjee Referred To Contact [facility] Diagnoses History of colonic polyps Family history of colon cancer Procedures COLONOSCOPY SCREENING COLONOSCOPY FLX DX W/COLLJ SPEC WHEN Jerri Borges PA-C [address] [place] [address] [facility] [address] [address] Referral ID Status Reason Start Date Expiration Date V isits Requested Visits Authorized [id number] Closed Auto-Generate d Referral 08/03/2021 08/03/2022 1 1 [facility] for referral (narrative)No reason for referral [facility] Work Phone: Reason for visit Narrative* Outpatient Procedure (Routine) - Closed Specialty Diagnoses / Procedures Referred By Sadia banerjee Referred To Contact [facility] Diagnoses History of colonic polyps Family history of colon cancer Procedures COLONOSCOPY SCREENING COLONOSCOPY FLX DX W/COLLJ SPEC WHEN Jerri Borges PA-C [address] [place] [address] [address] Referral ID Status Reason Start Date Expiration Date V isits Requested Visits Authorized [id number] Closed Auto-Generate d Referral 08/03/2021 08/03/2022 1 1 [facility] for visit Narrative* Outpatient Procedure (Routine) - Closed Specialty Diagnoses / Procedures Referred By Sadia t Referred To Contact [facility] Diagnoses Screen for colon cancer History of colonic polyps Procedures COLONOSCOPY SCREENING COLONOSCOPY FLX DX W/COLLJ SPEC WHEN Karly Landa APRN.TABLE ATTENDANT [address] [place] [address] Phone: tel: fax: [facility] [address] [place] [address] Referral ID Status Reason Start Date Expiration Date V isits Requested Visits Authorized [id number] Closed Auto-Generate d Referral 08/12/2024 08/12/2025 1 1 [facility] Chief Complaint Chief Complaint Description Start Date neck pain Preliminary chief co mplaint data, not yet signed by the author as of Instructions Instruction Description Start Date CompletedPatient advised to follow-up with Primary Care Physician for BMI management. Advance Directives No Advanced Directives Records FoundDocuments on File Type Date Recorded Patient Art Supervisor Expl anation Advance Directive(s) 09/09/2021 7:07 AM Advance Directive(s) 08/12/2021 4:39 PM Documents on File Type Date Recorded Patient Art Supervisor Expl anation Advance Directive(s) 09/09/2021 7:07 AM Advance Directive(s) 08/12/2021 4:39 PM Advance Directive Response Recorded Date/ Time Living Will Yes June 19, 2019 10:20am Power of Physician Practice Manager Yes June 18 10:20am Advance Directive Response Recorded Date/ Time Living Will Yes June 19, 2019 9:20am Power of Physician Practice Manager Yes June 18 9:20am Advance Directive Response Recorded Date/ Time Living Will Yes December 02 10:15am Power of Physician Practice Manager Yes December 02 10:15am Advance Directive Response Recorded Date/ Time Name of Medical Power of Physician Practice Manager December 02, 2022 10:15am Living Will Yes December 02 10:15am Power of Physician Practice Manager Yes December 02 023 10:15am Advance Directive Response Recorded Date/ Time Living Will No December 12 7:12pm Power of Physician Practice Manager No December 12, 2022 7:12pm Name of Medical Power of Physician Practice Manager December 02, 2022 10:15am Advance Directive Response Recorded Date/ Time Name of Medical Power of Physician Practice Manager December 02, 2022 10:15am Name of Medical Power of Physician Practice Manager MYRTLE January 02, 2023 1:09pm Living Will Yes January 02, 2023 1:09pm Power of Physician Practice Manager Yes December 1:09pm Advance Directive Response Recorded Date/ Time Living Will Yes January 02, 2023 1:09pm Power of Physician Practice Manager Yes December 1:09pm Advance Directive Response Recorded Date/ Time Living Will Yes July 10, 2024 1:49pm Do you have a Healthcare Power of Physician Practice Manager? Yes July 10, 2024 1:49pm Name of Medical Power of Physician Practice Manager July 10, 2024 1:49pm Advance Directive Response Recorded Date/ Time Do you have a Healthcare Power of Physician Practice Manager? Yes November 14, 2024 11:02am Name of Medical Power of Physician Practice Manager November 14, 2024 11:02am Assessments There [...] 17, 2024 1:19pm Spondylolisthesis, lumbar region Februar y 2024 1:19pm Adjacent segment disease of cervical [...] or prosecute any alcohol or drug abuse patient.[facility] the event this information is protected by the Federal Confidentiality of Alcohol and Drug Abuse Patient Records regulations: The Federal rules restrict any use of the information to criminally investigate or prosecute any alcohol or drug abuse patient.[facility] the event this information is protected by the Federal Confidentiality of Alcohol and Drug Abuse Patient Records regulations: The Federal rules restrict any use of the information to criminally investigate or prosecute any alcohol or drug abuse patient.[facility] the event this information is protected by the Federal Confidentiality of Alcohol and Drug Abuse Patient Records regulations: The Federal rules restrict any use of the information to criminally investigate or prosecute any alcohol or drug abuse patient.[facility] the event this information is protected by the Federal Confidentiality of Alcohol and Drug Abuse Patient Records regulations: The Federal rules restrict any use of the information to criminally investigate or prosecute any alcohol or drug abuse patient.[facility] the event this information is protected by the Federal Confidentiality of Alcohol and Drug Abuse Patient Records regulations: The Federal rules restrict any use of the information to criminally investigate or prosecute any alcohol or drug abuse patient.[facility] the event this information is protected by the Federal Confidentiality of Alcohol and Drug Abuse Patient Records regulations: The Federal rules restrict any use of the information to criminally investigate or prosecute any alcohol or drug abuse patient.[facility] the event this information is protected by the Federal Confidentiality of Alcohol and Drug Abuse Patient Records regulations: The Federal rules restrict any use of the information to criminally investigate or prosecute any alcohol or drug abuse patient.[facility] Care Teams (unrecognized sec tion and content) Sanitary Landfill Operator Relationship Specialty Start Date End Date Nathanael Rojas DO [address] [place] [address] PCP - General Family Practice 06/22/21 Sanitary Landfill Operator Relationship Specialty Start Date End Date Nathanael Rojas DO [address] [place] [address] PCP - General Family Practice 06/22/21 Sanitary Landfill Operator Relationship Specialty Start Date End Date Nathanael Rojas DO [address] [place] [address] PCP - General Family Practice 06/22/21 Sanitary Landfill Operator Relationship Specialty Start Date End Date Nathanael Rojas DO [address] [address] PCP - General Family Practice 06/22/21 Sanitary Landfill Operator Relationship Specialty Start Date End Date No, Physician [facility] PCP - General 03/16/22 Team Status: Active Member Role Status Dates Dr. Nathanael Rojas DO Family Provider Active Dr. Nathanael Rojas DO Primary Care Provider Active Team Status: Inactive Member Role Status Dates Dr. Nathanael Rojas DO Primary Care Provider Active Dr. Yamile Hines MD Attending Provider, Referring Pr ovider Active Team Status: Inactive Member Role Status Dates Dr. Nathanael Rojas DO Primary Care Provider Active Dr. Raymundo Hargrove MD Attending Provider, Referring P rovider Active Team Status: Inactive Member Role Status Dates Dr. Nathanael Rojas DO Primary Care Provider, Attendin g Provider Active Team Status: Inactive Member Role Status Dates Dr. Nathanael Rojas DO Primary Care Prov ider, Attending Provider, Referring Provider Active Team Status: Inactive Member Role Status Dates Dr. Nathanael Rojas DO Primary Care Provider Active Dr. Duke Trinh MD Attending Provider, Referr ing Provider Active Team Status: Inactive Member Role Status Dates Dr. Nathanael Rojas DO Primary Care Provider Active Dr. Bessie Haro MD Emergency Provider Active Team Status: Inactive Member Role Status Dates Dr. Nathanael Rojas DO Primary Care Provider Active Dr. Bessie Haro MD Attending Provider, Emergency Provider Active Team Status: Inactive Member Role Status Dates Dr. Nathanael Rojas DO Primary Care Provider Active Dr. Blas Copeland MD Emergency Provider Active Team Status: Inactive Member Role Status Dates Dr. Duke Trinh MD Attending Provider, Referr ing Provider Active Dr. Nathanael Rojas DO Primary Care Provider Active Team Status: Inactive Member Role Status Dates Dr. Nathanael Rojas DO Primary Care Provider Active Esthelamitchell Jacking Attending Provider, Referring Provide r Active Team Status: Active Member Role Status Dates Dr. Nathanael Rojas DO Primary Care Provider Active Team Status: Inactive Member Role Status Dates Dr. Nathanael Rojas DO Primary Care Provider Active Start: April 09, 2024 End: April 09, 2024 Dr. Nathanael Rojas DO Referring Provider Active Start: April 09, 2024 End: April 09, 2024 Dr. Alexandre Yip MD Attending Provider Active Start: April 09, 2024 End: April 09, 2024 Team Status: Inactive Member Role Status Dates Dr. Nathanael Rojas DO Primary Care Provider Active Start: April 09, 2024 End: April 09, 2024 Dr. Tha Mcghee MD Attending Provider Active S tart: April 09, 2024 End: April 09, 2024 Team Status: Inactive Member Role Status Dates Dr. Nathanael Rojas DO Primary Care Provider Active Start: May 17, 2024 End: May 17, 2024 Dr. Nathanael Rojas DO Referring Provider Active Start: May 17, 2024 End: May 17, 2024 Dr. Alexandre Yip MD Attending Provider Active Start: May 17, 2024 End: May 17, 2024 Team Status: Inactive Member Role Status Dates Dr. Nathanael Rojas DO Primary Care Provider Active Start: May 17, 2024 End: May 17, 2024 Dr. Tha Mcghee MD Attending Provider Active S tart: May 17, 2024 End: May 17, 2024 Team Status: Active Member Role Status Dates Dr. Nathanael Rojas DO Primary Care Provider Active Start: June 27, 2024 End: June 27, 2024 Dr. Tha Mcghee MD Attending Provider Active S tart: June 27, 2024 End: June 27, 2024 Dr. Alexandre Yip MD Referring Provider Active Start: June 27, 2024 End: June 27, 2024 Team Status: Inactive Member Role Status Dates Dr. Nathanael Rojas DO Primary Care Provider Active Start: July 04, 2024 End: July 04, 2024 Dr. Nathanael Rojas DO Referring Provider Active Start: July 04, 2024 End: July 04, 2024 Dr. Alexandre Yip MD Attending Provider Active Start: July 04, 2024 End: July 04, 2024 Team Status: Active Member Role Status Dates Dr. Nathanael Rojas DO Primary Care Provider Active Start: July 10, 2024 Dr. Alexandre Yip MD Attending Provider Active Start: July 10, 2024 Dr. Alexandre Yip MD Referring Provider Active Start: July 10, 2024 Dr. Alexandre Yip MD Other Provider Active Star t: July 10, 2024 Team Status: Inactive Member Role Status Dates Dr. Nathanael Rojas DO Primary Care Provider Active Start: July [...] Active Member Role Status Dates Dr. Nathanael Rojas DO Primary Care Provider Active Start: July [...] Active Member Role Status Dates Dr. Nathanael Rojas DO Primary Care Provider Active Start: July [...] Provider Active Star t: July 11, 2024 Sanitary Landfill Operator Relationship Specialty Start Date End Date Nathanael Rojas DO [address] [place] [address] PCP - General Family Medicine 06/22/21 Team Status: Active Member Role Status Dates Dr. Nathanael Rojas DO Primary Care Provider Active Start: July [...] Inactive Member Role Status Dates Dr. Nathanael Rojas DO Primary Care Provider Active Start: July 25, 2024 End: July 25, 2024 Dr. Nathanael Rojas DO Referring Provider Active Start: July 25, 2024 End: July 25, 2024 Dr. Alexandre Yip MD Attending Provider Active Start: July 25, 2024 End: July 25, 2024 Team Status: Inactive Member Role Status Dates Dr. Nathanael Rojas DO Primary Care Provider Active Start: July 25, 2024 End: July 25, 2024 Dr. Tha Mcghee MD Attending Provider Active S tart: July 25, 2024 End: July 25, 2024 Team Status: Active Member Role Status Dates Dr. Nathanael Rojas DO Primary Care Provider Active Start: August 22, 2024 Dr. Nathanael Rojas DO Referring Provider Active Start: August 22, 2024 ANABELLA Warren Attending Provider Active Star t: August 22, 2024 Team Status: Inactive Member Role Status Dates Dr. Nathanael Rojas DO Primary Care Provider Active Start: August 22, 2024 End: August 22, 2024 Dr. Tha Mcghee MD Attending Provider Active S tart: August 22, 2024 End: August 22, 2024 Team Status: Inactive Member Role Status Dates Dr. Nathanael Rojas DO Primary Care Provider Active Start: August 22, 2024 End: August 22, 2024 Dr. Nathanael Rojas DO Referring Provider Active Start: August 22, 2024 End: August 22, 2024 ANABELLA Warren Attending Provider Active Star t: August 22, 2024 End: August 22, 2024 Sanitary Landfill Operator Relationship Specialty Start Date End Date Nathanael Rojas DO [address] [place] [address] PCP - General Family Medicine 06/22/21 Sanitary Landfill Operator Relationship Specialty Start Date End Date Nathanael Rojas DO [address] [place] [address] PCP - General Family Medicine 06/22/21 Team Status: Active Member Role/Relationship Status Dates Dr. Nathanael Rojas DO Primary Care Provider Active Team Status: Active Member Role/Relationship Status Dates Dr. Nathanael Rojas DO Primary Care Provider Active Start: June 27, 2024 End: June 27, 2024 Dr. Tha Mcghee MD Attending Provider Active S tart: June 27, 2024 End: June 27, 2024 Dr. Alexandre Yip MD Referring Provider Active Start: June 27, 2024 End: June 27, 2024 Team Status: Inactive Member Role/Relationship Status Dates Dr. Nathanael Rojas DO Primary Care Provider Active Start: July 04, 2024 End: July 04, 2024 Dr. Nathanael Rojas DO Referring Provider Active Start: July 04, 2024 End: July 04, 2024 Dr. Alexandre Yip MD Attending Provider Active Start: July 04, 2024 End: July 04, 2024 Team Status: Active Member Role/Relationship Status Dates Dr. Nathanael Rojas DO Primary Care Provider Active Start: July 10, 2024 Dr. Alexandre Yip MD Attending Provider Active Start: July 10, 2024 Dr. Alexandre Yip MD Referring Provider Active Start: July 10, 2024 Dr. Alexandre Yip MD Other Provider Active Star t: July 10, 2024 Team Status: Inactive Member Role/Relationship Status Dates Dr. Nathanael Rojas DO Primary Care Provider Active Start: July [...] Active Member Role/Relationship Status Dates Dr. Nathanael Rojas DO Primary Care Provider Active Start: July [...] Active Member Role/Relationship Status Dates Dr. Nathanael Rojas DO Primary Care Provider Active Start: July [...] Active Member Role/Relationship Status Dates Dr. Nathanael Rojas DO Primary Care Provider Active Start: July [...] Inactive Member Role/Relationship Status Dates Dr. Nathanael Rojas DO Primary Care Provider Active Start: July 25, 2024 End: July 25, 2024 Dr. Nathanael Rojas DO Referring Provider Active Start: July 25, 2024 End: July 25, 2024 Dr. Alexandre Yip MD Attending Provider Active Start: July 25, 2024 End: July 25, 2024 Team Status: Inactive Member Role/Relationship Status Dates Dr. Nathanael Rojas DO Primary Care Provider Active Start: July 25, 2024 End: July 25, 2024 Dr. Tha Mcghee MD Attending Provider Active S tart: July 25, 2024 End: July 25, 2024 Team Status: Inactive Member Role/Relationship Status Dates Dr. Nathanael Rojas DO Primary Care Provider Active Start: August 22, 2024 End: August 22, 2024 Dr. Nathanael Rojas DO Referring Provider Active Start: August 22, 2024 End: August 22, 2024 ANABELLA Warren Attending Provider Active Star t: August 22, 2024 End: August 22, 2024 Team Status: Inactive Member Role/Relationship Status Dates Dr. Nathanael Rojas DO Primary Care Provider Active Start: August 22, 2024 End: August 22, 2024 Dr. Tha Mcghee MD Attending Provider Active S tart: August 22, 2024 End: August 22, 2024 Team Status: Active Member Role/Relationship Status Dates Dr. Nathanael Rojas DO Primary Care Provider Active Start: October 18, 2024 Dr. Nathanael Rojas DO Referring Provider Active Start: October 18, 2024 Dr. Alexandre Yip MD Attending Provider Active Start: October 18, 2024 Team Status: Inactive Member Role/Relationship Status Dates Dr. Nathanael Rojas DO Primary Care Provider Active Start: October 18, 2024 End: October 18, 2024 Dr. Tha Mcghee MD Attending Provider Active S tart: October 18, 2024 End: October 18, 2024 Team Status: Inactive Member Role/Relationship Status Dates Dr. Nathanael oRjas DO Primary Care Provider Active Start: October 18, 2024 End: October 18, 2024 Dr. Nathanael Rojas DO Referring Provider Active Start: October 18, 2024 End: October 18, 2024 Dr. Alexandre Yip MD Attending Provider Active Start: October 18, 2024 End: October 18, 2024 Sanitary Landfill Operator Relationship Specialty Start Date End Date Nathanael Rojas DO [address] [facility] [place] [address] PCP - General Family Medicine 06/22/21 Team Status: Inactive Member Role/Relationship Status Dates Dr. Nathanael Rojas DO Primary Care Provider Active Start: July 25, 2024 End: July 25, 2024 Dr. Nathanael Rojas DO Referring Provider Active Start: July 25, 2024 End: July 25, 2024 Dr. Alexandre Yip MD Attending Provider Active Start: July 25, 2024 End: July 25, 2024 Team Status: Inactive Member Role/Relationship Status Dates Dr. Nathanael Rojas DO Primary Care Provider Active Start: July 25, 2024 End: July 25, 2024 Dr. Tha Mcghee MD Attending Provider Active S tart: July 25, 2024 End: July 25, 2024 Team Status: Inactive Member Role/Relationship Status Dates Dr. Nathanael Rojas DO Primary Care Provider Active Start: August 22, 2024 End: August 22, 2024 Dr. Nathanael Rojas DO Referring Provider Active Start: August 22, 2024 End: August 22, 2024 ANABELLA Warren Attending Provider Active Star t: August 22, 2024 End: August 22, 2024 Team Status: Inactive Member Role/Relationship Status Dates Dr. Nathanael Rojas DO Primary Care Provider Active Start: August 22, 2024 End: August 22, 2024 Dr. Tha Mcghee MD Attending Provider Active S tart: August 22, 2024 End: August 22, 2024 Team Status: Inactive Member Role/Relationship Status Dates Dr. Nathanael Rojas DO Primary Care Provider Active Start: October 18, 2024 End: October 18, 2024 Dr. Nathanael Rojas DO Referring Provider Active Start: October 18, 2024 End: October 18, 2024 Dr. Alexandre Yip MD Attending Provider Active Start: October 18, 2024 End: October 18, 2024 Team Status: Inactive Member Role/Relationship Status Dates Dr. Nathanael Rojas DO Primary Care Provider Active Start: October 18, 2024 End: October 18, 2024 Dr. Tha Mcghee MD Attending Provider Active S tart: October 18, 2024 End: October 18, 2024 Team Status: Inactive Member Role/Relationship Status Dates Dr. Nathanael Rojas DO Primary Care Provider Active Start: November 11, 2024 End: November 11, 2024 Esthela Leo Attending Provider Active Start : November 11, 2024 End: November 11, 2024 Esthela Leo Referring Provider Active Start : November 11, 2024 End: November 11, 2024 Team Status: Inactive Member Role/Relationship Status Dates Dr. Nathanael Rojas DO Primary Care Provider Active Start: November [...] section and content) DATE CREATED AUTHOR 03/16/2022 [facility] DATE CREATED AUTHOR AUTHOR'S ORGANIZ ATION 12/04/2022 [facility] ([place] DATE CREATED AUTHOR AUTHOR'S ORGANIZ ATION 09/15/2024 [facility] DATE CREATED AUTHOR AUTHOR'S ORGANIZ ATION 02/09/2025 [facility] FOR RECORDS PERTAINING TO PATIENTS WHO [...] BE BASED ON THE PRIMARY CLINICAL RECORDS. [facility] [employer] provides no warranty or guarantee of the accuracy or completeness of information in this document.
[2025-03-18 21:24] LABS: Differential Comment SCANNED
== END | disposition home or self-care (01) ==
PROVIDERS: PCP Family Medicine; Referring Provider Nurse Practitioner Family; Visit Provider Nurse Practitioner Family
DX: M43.17 Spondylolisthesis, lumbosacral region (principal); R29.898 Other symptoms and signs involving the musculoskeletal system; M62.838 Other muscle spasm
CPT/HCPCS: 36415; 72110; 80053; 83735; 85025

== ENCOUNTER → 2025-03-19 | Outpatient (CLI) | payer MEDICARE, OTHER, SELFPAY ==
[2025-03-19 15:49] LABS: Hematocrit 37.8 % (40-54); Hemoglobin 12.9 g/dL (13.0-16.5); Immature Granulocytes Count 0.010 X10^3/uL (0.0-0.0); Mean Corp Hgb Conc 34.1 g/dL (32-36); Mean Corpuscular Volume 91.7 fL (80-94); Mean Platelet Vol. 11.0 fl (6.2-12.0); NRBC Flagged by Analyzer 0 % (0-5); Platelet Count 227 K/mm3 (150-450); RBC Distribution Width CV 11.8 % (11.6-14.6); RBC Distribution Width SD 39.5 fl (35.1-43.9); Red Blood Count 4.12 M/mm3 (4.6-6.2); White Blood Count 6.0 K/mm3 (4.4-11.0)
== END | disposition home or self-care (01) ==
LOC: BFHLAB 14:06
PROVIDERS: PCP Family Medicine; Visit Provider Family Medicine
DX: M62.838 Other muscle spasm (principal); R29.898 Other symptoms and signs involving the musculoskeletal system
CPT/HCPCS: 85025

== ENCOUNTER → 2025-04-02 | Outpatient (CLI) | payer MEDICARE, OTHER, SELFPAY ==
--- OUTSIDE RECORDS SUMMARY | 2025-04-02 13:26 | XMS RPT_ITS | CCD ---
Author Organization [facility]ini[facility] Care Team Providers Care Home Care Liaison Name Role Phone Nicholas PATINO, Ra James Unavailable Nathanael Rojas DO Primary Care Provider No, [...] PATINO, Dr. Racheal Denise Attending Provider Florina Fernadnes Attending Provider Nathanael Rojas DO Primary Care [...] Almazan Attending Provider Florina Fernandes Attending Provider Vincent, Esthela Attending Provider [phone] Vincent, Esthela Referring Provider Doreen PATINO, Dr. Duke Gómez Attending Provider Doreen PATINO, Dr. Duke Gómze Referring Provider [phone] Ashwini, Nathanael Primary Care Unavailable Koram, Racheal Camelia Consulting Unavailable Alexandre Yip Admitting Unavailable Alexandre Yip Attending Unavailable Alexandre Yip Referring Unavailable Morro Andres Consulting Unavailable Ashwini, Nathanael Primary Care Unavailable Doreen, Duke Gómez Attending Unavailable Doreen, Duke Gómez Referring Unavailable Ashwini, Nathanael Primary Care Unavailable Doreen, Duke Gómez Attending Unavailable Doreen, Duke Gómez Referring Unavailable Ashwini, Nathanael Primary Care Unavailable Vincent, Esthela Referring Unavailable Vincent, Esthela Attending Unavailable Ashwini, Nathanael Attending Unavailable [...] Tha Attending Unavailable Ashwini, Nathanael Referring Unavailable Yip, Alexandre Attending Unavailable Ashwini, Nathanael Primary Care Unavailable Taz, [place] Attending Unavailable Ashwini, Nathanael Primary Care Unavailable Ashwini, Nathanael Primary Care Unavailable Ashwini, Nathanael Referring Unavailable Lashay, Florina Attending Unavailable Ashwini, Nathanael Primary Care Unavailable Taz, [place] Attending Unavailable Yip, Alexandre Referring Unavailable Koram, Racheal Camelia Consulting Unavailable Yip, Alexandre Admitting Unavailable Yip, Alexandre Referring Unavailable Dmitry, Morro Attending Unavailable Ashwini, Nathanael Primary Care Unavailable Dmitry, Morro Consulting Unavailable Yip, Alexandre Consulting Unavailable Yip, Alexandre Consulting Unavailable Yip, Alexandre Attending Unavailable Ashwini, Nathanael Primary Care Unavailable Yip, Alexandre Referring Unavailable Taz, [place] Attending Unavailable Ashwini, Nathanael Primary Care Unavailable Koram, Racheal Camelia Attending Unavailable Ashwini, Nathanael Primary Care Unavailable DoreenDuke Attending Unavailable DoreenDuke Referring Unavailable Lashay, Florina Attending Unavailable Ashwini, Nathanael Referring Unavailable Yip, Alexandre Attending Unavailable Ashwini, Nathanael Primary Care Unavailable Taz, [place] Attending Unavailable Ashwini, Nathanael Primary Care Unavailable [...] [AMOXICILLIN] Drug Allergy 9 Unknown, Hives, Swelling [facility] Work Phone: (1 source) Penicillin Drug Allergy 9 [facility] Work Phone: (1 source) PLANT POLLENS; Translations: [PLANT POLLENS] allergy to substance 9 hay fever [facility] Work Phone: (6 sources) Penicillins; Translations: [PENICILLINS] Propensity to adverse reactions 9 [facility] (2 sources) Penicillins Propensity to adverse reactions 9 [facility] (18 sources) Penicillins Allergy to substance 0 [facility] (15 sources) traMADol; Translations: [TRAMADOL] Drug Allergy 3 Other: See Comments [facility] Comment on above: Severe nightmares (4 sources) Penicillins Propensity to adverse reactions 9 [facility] (1 source) Amoxicillin Drug Allergy 5 [facility] Rep[facility] (1 source) Penicillins Drug allergy (disorder) 5 [facility] (1 source) traMADol Drug Allergy 5 [facility] Repository Medications Current Medications Medication Drug Class(es) [...] PO daily April 09, 2024 1:00am Fish Oil-[place]-3 Fatty Acids (FISH OIL) 340-1,000 mg cap (8 sources) take 1 capsule by mouth three times daily Fish Oil-[place]-3 Fatty Acids (FISH OIL) 340-1,000 mg cap Take 1 capsule by mouth three times daily. Active take 1 capsule by [facility] three times daily Fish Oil-[place]-3 Fatty Acids (FISH OIL) 340-1,000 mg cap Take 1 capsule by mouth three times daily. 0 Active Comment on above: Take 1 capsule by [facility] three times daily. fluconazole 150 mg oral [...] BREAKFAST Start: 05-20-2024 take 1 tablet by [facility] twice daily before mealtime glipiZIDE (GLUCOTROL) 5 [...] to 4 times daily as needed NAPHAZOLINE-PHENIRAMINE [id number] Terena Hopkins RN nortriptyline 10 mg oral capsule (1 source) Tricyclic Antidepressant Start: 03-09-2022 take 1 capsule by mouth at bedtime nortriptyline (PAMELOR) 10 MG capsule TAKE 1 CAPSULE BY MOUTH AT BEDTIME FOR MIGRAINE 0 03/09/2022 Active [place]-3 Fatty Acids (Fish Oil Concentrate) 1,000 mg capsule (19 sources) Start: 11-01-2018 take 1 capsule by mouth once daily [place]-3 Fatty Acids (Fish Oil Concentrate) 1,000 mg capsule Active 1000 mg PO DAILY November 01, 2018 12:00am Start: 11-01-2018 take 1 capsule by [facility] once daily [place]-3 Fatty Acids (Fish Oil Concentrate) 1,000 mg capsule Active 1000 MG PO DAILY October 31, 2018 11:00pm Start: 11-01-2018 take 1 capsule by [facility] once daily [place]-3 Fatty Acids (Fish Oil Concentrate) 1,000 mg [...] for pain. 0 Active polyethylene glycol 3350 486088 mg / potassium chloride 2970 mg / sodium bicarbonate 6740 mg / sodium chloride 5860 mg / sodium sulfate 71478 mg powder for oral solution (3 sources) [...] mg 24 hr capsule 04/10/2015 Active sennosides, fdc 8.6 mg oral capsule (7 sources) Start: [...] PO DAILY June 26, 2024 12:00am Vitamin F31-Tbdyo Acid 1,000-400 mcg tablet, sublingual (7 sources) Start: 06-26-2024 Vitamin Z65-Zxxxs Acid 1,000-400 mcg tablet, sublingual Active 1 [...] System Stimulant, Methylxanthine Start: 12-02-2022 End: 04-09-2024 Onekvdm-Ardruetgpeoyf-Bbqbdj ne (Excedrin Extra Strength) 250-250-65 mg tablet [...] times daily as directed as needed HYDROCODONE-ACETAMINOPHEN [id number] Cecil Hopkins RN Start: 08-03-2016 End: 05-21-2019 [...] times daily as directed as needed ASPIRIN-CAFFEINE 37458405769 Terena Hopkins RN calcium chloride 0.0014 meq/ml [...] Start: 05-21-2019 take 1 capsule by mo [facility] twice daily as needed Diphenhydramine Hcl [...] daily as directed as needed DIPHENHYDRAMINE HCL [id number] Cecil Hopkins RN take 1 tablet by joanna every six hours as needed diphenhydrAMINE (BENADRYL ALLERGY) 25 mg tablet Take 25 mg by mouth every 6 hours as needed. Active Comment on above: Take 25 mg by mouth every 6 hours as needed. docusate sodium 50 mg / sennosides, fdc 8.6 mg oral tablet (7 sources) Start: 07-11-2024 End: 07-11-2024 Sennosides-Docusate Sodium (Stimulant Laxative Plus) 8.6-50 mg Tablet Discontinued 2 {tbl} PO TWICE A DAY as needed for constipation 30 0 July 11, 2024 9:20am July 11, 2024 10:52am doxazosin 4 mg oral tablet (1 source) alpha-Adrenergic Yobani Start: 01-03-2019 DOXAZOSIN MESYLATE 4 MG TABS 1 tablet once daily DOXAZOSIN MESYLATE [id number] Terena Hopkins RN 1 ml fentaNYL 0.05 [...] directed as needed HYDROCORTISONE BUTYR LIPO BASE 81694161263 Terena Hopkins RN ibuprofen 600 mg oral [...] TABS 1 tablet once daily MULTIPLE VITAMINS-MINERALS 04338749265 Cecil Hopkins RN nystatin 013087 unt/ml topical cream (1 source) Polyene Antifungal Start: 01-03-2019 NYSTATIN 10 0000 UNIT/GM CREA apply topically as directed twice daily as needed NYSTATIN [id number] Cecil Hopkins RN Nystatin / Triamcinolone (19 [...] 600mg twice daily OMEGA-3 FATTY ACIDS CAPS [id number] Cecil Hopkins RN phenazopyridine hydrochloride 100 mg [...] 12 hours X 7 days SULFAMETHOXAZOLE-TR IMETHOPRIM [id number] Cecil Hopkins RN tamsulosin hydrochloride 0.4 mg [...] 01-09 PSA, DIAGNOSTIC 1.09 ng/mL Normal 0.00-4.00 [facility] Comment on above: Result Comment: This test [...] baseline values. Performed By: #### L 501.9940 ####[facility] [address] [place], [place], [address] Abdomen/Pelvis without Conto n 01-23-2025 Abdomen/Pelvis without Cont [facility] Imaging Services [address] [place], [place] [address] Abdomen/Pelvis without Cont MR#: [id number] Acct: [id number] Name: TERESA RAINEY Rep #: [id number] : 1950 M 74 From: Alexey Melo MD PCP: Dr. Nathanael Rojas, DO Status: REG CLI Study: Abdomen/Pelvis without Cont Date of Exam: 01/08 10/02 Exam# [id number] Ordering Dr: Duke Trinh MD PROCEDURE: ABDOMEN/PELVIS [...] CT evidence of acute diverticulitis Reading Location: [facility] CC: Dr. Duke Trinh MD; Dr. Nathanael Rojas DO Vegetable Packer: Signed Normal [facility] Coronary Angiography CTon Coronary Angiography CT [facility] Imaging Services [address] [place] [address] 12/26/24 0840 MR#: [id number] Acct: [id number] Name: TERESA RAINEY Rep #: [id number] : 1950 74 From: Tha Mcghee MD [...] MD; Dr. Nathanael Rojas DO Signed Normal [facility] Limited Chest CT Cardiac Onl yon 12-18-[address] Cardiac Only [facility] Imaging Services [address] [place] [address] Cardiac Only MR#: [id number] Acct: [id number] Name: TERESA RAINEY Rep #: [id number] : 1950 M 74 From: Oliverio Reese PCP: Dr. Nathanael Ashwini, DO Status: REG REF Study: Limited Chest CT Cardiac Only Date of Exam: Exam# [id number] Ordering Dr: Nathanael Rojas DO PROCEDURE: LIMITED [...] abdomen demonstrates no significant abnormality. Reading Location: [place] [address] CC: Dr. Nathanael Rojas DO Vegetable Packer: Signed Normal [facility] Abdomen Single Viewon 2024 Abdomen Single View [facility] Imaging Services [address] [place], [place] [address] Abdomen Single View MR#: [id number] Acct: [id number] Name: TERESA RAINEY Rep #: [id number] : 1950 M 74 From: Rogelio jolley MD PCP: Dr. Nathanael Rojas DO Status: REG [facility] Study: Abdomen Single View Date of Exam: 11/20/24 Exam# [id number] Ordering Dr: Duke Trinh MD PROCEDURE: ABDOMEN [...] renal or ureteral calcification seen. Reading Location: [facility] CC: Dr. Duke Trinh MD; Dr. Nathanael Rojas DO Vegetable Packer: Signed Normal [facility] Bedside Glucoseon 11-20-2024 F[place]ICK GLU 133 mg/dL High 74-106 [facility] Comment on above: Result Comment: PHILIP GEMENT OF PATIENT CARE PER NURSING PROTOCOL Performed By: #### L 501.080 #### [facility] Laboratory [address] [place], [address] Discharge Instructionon 11-08 Discharge Instruction [facility] Medical Records Department [address] [place] [address] Instructions for Home/Discharge Instructions 11/20/24 1558 MR#: [id number] Acct: [id number] Name: TERESA RAINEY Rep #: [id number] : 1950 74 From: Duke Trinh MD [...] Up With: Duke Trinh MD When: Call [phone] for an appointment Test Results: Test results from this visit will be discussed in further detail at your follow-up appointment, if applicable. Discharge Plan Admission Primary Reason for Your Visit: right ESWL and stent Attending Provider: Duke Trinh Primary Care Provider: Nathanael Rojas Instructions Print Language: Georgian Discharge Orders/Prescriptions Prescriptions: New ciprofloxacin HCl [Cipro] [...] mg tablet 100 mg PO DAILY vitamin P27-tlnoz acid 1,000-400 mcg tablet, sublingual 1 tab [...] can be placed): Home, Self Care 11/20/24 5220 Duke Trinh MD CC: Dr. Nathanael Rojas DO Signed Normal [facility] Gl[facility] deOrdered By: Duke Trinh on 11-20-2024 Glucose [Mass/Vol] 133 mg/dL High 74-106 [facility] Comment on above: MANAGEMENT OF PATIEN T CARE PER NURSING PROTOCOL MR/POSTOP.ANEchuck 11-20-2024 MR/POSTOP.[facility] Medical Records Department [address] [place] [address] Anesthesia Postop Eval I 11/20/24 1611 MR#: [id number] Acct: [id number] Name: TERESA RAINEY Rep #: [id number] : 1950 74 From: Alvaro Crews CRNA PCP: Dr. Nathanael Rojas DO Status:REG SDC Y Race: C Location: [place] [address] Anesthesia: Postop Eval I Current Vital Signs Temperature: 97.2 F Pulse Rate: 60 Blood Pressure: 168/72 Respiratory Rate: 16 Pulse Ox: 92 Assessment Airway patent: Yes Spontaneous unlabored respirations: Yes nausea: No Vomiting: No Anesthesia Complication: No Fluid Hydration Crystalloid volume administer (ml): 600 Total IV fluid infused: 600 Progress Note Anesthesia document: Postop Eval 1 completed: Yes 11/20/24 1611 Date Alvaro Eleonora REFRIGERATION SYSTEMS INSTALLER Cosigner Signature: Date CC: Signed Normal [facility] MR/[id number] 11-20-2024 [facility] Medical Records Department [address] [place] [address] Anesthesia Postop Eval II 11/20/24 1638 MR#: [id number] Acct: [id number] Name: TERESA RAINEY Rep #: [id number] : 1950 74 From: Karen Neves CRNA PCP: Dr. Nathanael Rojas, DO Status:REG SDC Y Race: C Location: [place] [address] 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/24 16:11 REFRIGERATION SYSTEMS INSTALLER.TNES Spontaneous unlabored Yes 11/20/24 16:11 REFRIGERATION SYSTEMS INSTALLER.TNES respirations Mental status nausea No 11/20/24 16:11 REFRIGERATION SYSTEMS INSTALLER.TNES Vomiting No 11/20/24 16:11 REFRIGERATION SYSTEMS INSTALLER.TNES Anesthesia Postop Eval I: Fluid Summary Crystalloid volume administer 600 11/20/24 16:11 REFRIGERATION SYSTEMS INSTALLER.TNES (ml) Colloids volume administered ( ml) Blood Product volume administered (ml) Total IV fluid infused 600 11/20/24 16:11 REFRIGERATION SYSTEMS INSTALLER.TNES Anesthesia Postop Eval I: Summary Notes Anesthesia Complication No 11/20/24 16:11 REFRIGERATION SYSTEMS INSTALLER.TNES Anesthesia Complication Comment: Post-operative progress note Anesthesia: Postop Eval II Evaluation Mental status: Awake Pain Level: 2 nausea: No Vomiting: No 11/20/24 1639 Date Karen Edinson REFRIGERATION SYSTEMS INSTALLER Cosigner Signature: Date CC: Signed Normal [facility] Operative Reporton 5 Operative Report [facility] Medical Records Department [address] [place] [address] Operative Report 11/20/24 1558 MR#: [id number] Acct: [id number] Name: TERESA RAINEY Rep #: [id number] : 1950 74 From: Duke Trinh MD PCP: Dr. Nathanael Rojas, DO Status:[facility] Location: [place] [address] Operative Report (Standard) Operative Information Date of Procedure: 11/20/24 Pre-Operative Diagnosis: Right kidney stone Post-Operative Diagnosis: The same Surgery/Procedure Performed: Cystoscopy right stent placement right ESWL human resources manager: No Type of Anesthesia: General RN [...] in usual sterile fashion. Using a 21 Nigerien rigid cystourethroscope the entire length of the urethra was normal then went into the bladder. Identified the trigone the left and right ureteral orifice. I then cannulated the right ureteral orifice and advanced a wire up into the kidney. I then backloaded a 5 Nigerien open ended catheter over the wire and injected contrast to delineate the anatomy. After the retrograde was performed I then used fluoroscopic images and guidance to advanced a wire up into the kidney and over the 0.038 glidewire I advanced a 6 Nigerien by 26 cm double pigtail stent. I [...] Trinh MD; Dr. Nathanael Rojas DO Signed [facility] MR/PAT.MIGUELINA 11-14-2024 MR/PAT.[facility] Medical Records Department [address] [place] [address] PAT - Anesthesia 11/14/24 1134 MR#: [id number] Acct: [id number] Name: TERESA RAINEY Rep #: [id number] : 1950 74 From: Melo Charles MD PCP: Dr. Nathanael Rojas DO Status:PRE [facility] [place] Race: C [place] [facility] Pre-Assessment Diagnosis/Proposed Procedure Planned Operative Procedure(s): (R) ESWL,Cystocopy Insertion Stent Anesthesia History Anesthesia History - fowl blood tester: Anesthesia History - fowl blood tester Hx Hospitalization Yes: 08/02 CERVICAL FUSION 11/14/24 [...] take am of surgery PONV PONV - fowl blood tester: PONV - fowl blood tester Female No 11/14/24 11:02 HX of Motion [...] 08/22/24 14:31 Respiratory Assessment Respiratory Assessment - fowl blood tester: Respiratory Tract Infection Hx - fowl blood tester Hx Respiratory Tract Infection No 11/14/24 11:02 STOP Sleep Apnea STOP Sleep Apnea - fowl blood tester: STOP Sleep Apnea - fowl blood tester Hx Hypertension Yes 11/14/24 11:02 Hx Sleep [...] Tobacco Use History Tobacco Use History - fowl blood tester: Tobacco Use History - fowl blood tester Tobacco Use Smoking Status Never smoker 11/14/24 11:02 Hx Tobacco Use Yes 11/14/24 11:02 Years Smoking Packs Smoked per Day Smoking Cessation Date was within the last 15 years Hx Smoking Cessation Date Hx Smoking Cessation Counseling Hematologic Medial History Hematologic Hx - fowl blood tester: 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 Hx of Blood Transfusion No 11/14/24 11:02 [...] confused, unrespo /Reproduction History /Reproductive History - fowl blood tester: /Reproductive Hx- fowl blood tester Hx Now No 11/14/24 11:02 Gestational Age (in weeks): EDC: Hx Hx Para Hx Section SAB No 11/14/24 11:02 [facility] Medical History History of steroid therapy [...] 07/09/24 H (more content not included)... Normal [facility] Abdomen/Pelvis without Conto n 11-11-2024 Abdomen/Pelvis without Cont [facility] Imaging Services [address], [place] [address] Abdomen/Pelvis without Cont MR#: [id number] Acct: [id number] Name: TERESA RAINEY Rep #: [id number] : 1950 M 74 From: Rogelio jolley MD PCP: Dr. Nathanael Rojas, DO Status: REG CLI Study: Abdomen/Pelvis without Cont Date of Exam: 08/02 Exam# [id number] Ordering Dr: Esthela Leo PROCEDURE: ABDOMEN/PELVIS WITHOUT [...] its lumen. Clinical correlation recommended. Reading Location: [facility] CC: Dr. Nathanael Rojas DO; Esthela Leo Vegetable Packer: Signed Normal [facility] Cerv Spine 2 or 3 Viewson Cerv Spine 2 or 3 Views [facility] Imaging Services [address] [place], [place] [address] Cerv Spine 2 or 3 Views MR#: [id number] Acct: [id number] Name: TERESA RAINEY Rep #: [id number] : 1950 M 74 From: Nathanael Moran MD PCP: Dr. Nathanael Rojas DO Status: DEP AMB Study: Cerv Spine 2 or 3 Views Date of Exam: 10/18/24 Exam# [id number] Ordering Dr: Alexandre Yip MD EXAM: XR [...] IMPRESSION: Postoperative changes as above. Reading Location: [facility] CC: Dr. Alexandre Yip MD; Dr. Nathanael Rojas DO Vegetable Packer: Signed Normal [facility] Orthopedic Visit Reporton Orthopedic Visit Report [facility] [address] [place] [address] [address] [place], [place] [id number] OFFICE VISIT Date of Service: 10/18/24 MR#: [id number] Acct: [id number] Name: TERESA RAINEY Rep #: [id number] : 1950 Provider: Dr. Alexandre Yip MD [...] PO DAILY 05/20/19 10/18/24 Hi story naphazoline 0.30930 %-pheniramine 2 drp OP PRN PRN Allergies [...] Part of today???s visit was documented by Eshtela Arellano RN acting as scribe. TERESA RAINEY [...] with c (more content not included)... Normal [facility] CNOVon 09-13-2024 CNOV Office Visit (GENSWS ) TERESA RAINEY ([id number]) 1950 Date Time Provider Department 09/13/24 3:00 PM KARLY ALVARADO During your visit today, we recorded the following information about you: Karly Alvarado APRN.CNP 09/13/2024 3:08 PM Signed FOLLOW UP VISIT - ENDOSCOPY Teresa Rainey 1950 [id number] REFERRING PHYSICIAN: No referring provider defined for [...] Date Reviewed: 09/13/2024 Reviewed by: Karly Alvarado APRN.COUNT TEAM MEMBER - Fully Assessed Reason for Visit: Follow [...] every 6 hours as needed. - Fish Oil-[place]-3 Fatty Acids (FISH OIL) 340-1,000 mg cap Take 1 capsule by mouth three times daily. Problem List As Of Date 09/13/2024 Noted Resolved Family history of colon cancer [Z80.0] 06/02/2014 Mixed hyperlipidemia [E78.2] 08/03/2021 History of colonic polyps [Z86.0100] 09/06/2024 Screen for colon cancer [Z12.11] 09/06/2024 Encounter Status:Closed by KARLY ALVARADO on 09/13/24 Normal [facility] [id number] 09-06-2024 [id number] HNO ID: [id number] Author: MEME BROWER RN Service: ? Author Type: Registered Nurse Type: [id number] Filed: 09/06/2024 10:12 Note Text: The patient received a copy of Colonoscopy discharge instructions that contain information for how to contact the physician who performed the procedure and when to seek medical care. Normal [facility] Colonoscopyon 09-06-2024 Colonoscopy [facility] Patient Name: Teresa Rainey [...] be scheduled. Procedure Code(s): --- Professional --- 72459, Colonoscopy, flexible; with removal of tumor(s), polyp(s), or other lesion(s) by snare technique G0500, Moderate sedation services provided by the same physician or other qualified health elderly caregiver performing a gastrointestinal endoscopic service that sedation supports, requiring the presence of an independent trained observer to assist in the monitoring of the patient's level of consciousness and physiological status; initial 15 minutes of intra-service time; patient age 5 years or older (additional time may be reported with 80018, as appropriate) Diagnosis Code(s): --- Professional --- Z12.11, Encounter for screening for malignant neoplasm of colon Z86.0101, Personal history of adenomatous and serrated colon polyps D12.2, Benign neoplasm of ascending colon K64.8, Other hemorrhoids CPT copyright 2020 [employer]. All rights reserved. The codes documented in this report are preliminary and upon insurance coder review may be revised to meet current compliance requirements. Attending Participation: I personally performed the entire procedure. Scope In: 9:40:22 AM Scope Out: 9:53:47 AM MD Minh Spear MD 09/06/2024 9:57:38 AM This report has been signed electronically by Minh Gerber MD Number of Addenda: 0 Note Initiated On: 09/06 (more content not included)... Normal [facility] Colonoscopy Study observatio non 09-06-2024 [facility] Gastrointestinal Endoscopy Patient Name: Teresa Rainey [...] be scheduled. Procedure Code(s): --- Professional --- 52416, Colonoscopy, flexible; with removal of tumor(s), polyp(s), or other lesion(s) by snare technique G0500, Moderate s (more content not included)... PROVATION [facility] Radiology Study [facility] (narrative) [facility] HISTORY PHYSICALon HISTORY PHYSICAL HNO ID: [id number] Author: MINH GERBER MD Service: General Surgery Author Type: Physician Type: H&P Filed: 09/06/2024 09:31 Note Text: HISTORY AND PHYSICAL Teresa Rainey : 1950 REFERRING PHYSICIAN: Minh Gerber III [address] [facility] [address] CHIEF COMPLAINT: Patient presents with: Consult HPI: [...] colonoscopy was 09/[address] Gerber at [facility]. Sedation:Fentanyl 50 micrograms IV, Midazolam 4 [...] mouth every 6 hours as needed. Fish Oil-[place]-3 Fatty Acids (FISH OIL) 340-1,000 mg cap [...] STUDIES: As (more content not included)... Normal [facility] Pathology biopsy report Raymond (Tiss)on 09-06-2024 AP DISCLAIMER Normal [facility] Comment on above: Order Comment: Speci men Type: TISSUE SPECIMEN Ordering Facility: [facility] Address: [address] [place] [address] Result Comment: Raffi lawrence Developed Test (LDT) Disclaimer: Performance characteristics of immunohistochemical, immunofluorescent, and chromogenic in-situ hybridization tests have been determined by the performing laboratory within [facility]'s [facility] Pathology and Laboratory Medicine Department ([facility], [facility], [facility], [facility], [facility], [facility], or [facility]) in a manner consistent with CLIA requirements. One or more of these tests may not have been cleared or approved by the FDA. RT[facility] is regulated under CLIA as qualified to perform high-complexity testing. These tests are used for clinical purposes. These should not be regarded as investigational or for research. Positive and negative controls stain appropriately. Performed By: #### 6 6121-5 #### [facility] CLIA [id number] [address] [place] [address] OF [facility] CLIA [id number] [address] [place] [address] [place] CASE REPORT Normal [facility] Comment on above: Order Comment: Speci men Type: TISSUE SPECIMEN Ordering Facility: [facility] Address: [address] [place] [address] Result Comment: Surg ical Pathology Report Case: [id number] Authorizing Provider: Minh Gerber MD Collected: 09/06/2024 09:47 AM Ordering Location: Ambulatory Surgery Received: 09/06/2024 01:55 PM Pathologist: Jordin Bryant MD Specimen: Colon, Ascending Polyp Performed By: #### 6 6121-5 #### [facility] CLIA [id number] [address] [place] [address] [place] [facility] CLIA [id number] [address] [place] [address] [place] FINAL DIAGNOSIS Normal [facility] Comment on above: Order Comment: Speci men Type: TISSUE SPECIMEN Ordering Facility: [facility] Address: [address] [place] [address] Result Comment: A. A scending colon polyp, biopsy: - Tubular adenoma. JRG/lacho 09/09/2024 at 0944 EDT Performed By: #### 6 6121-5 #### [facility] CLIA [id number] [address] [place] [address] [place] [facility] CLIA [id number] [address] [place] [address] [place] FINAL PERFORMING LAB Normal [facility] Comment on above: Order Comment: Speci men Type: TISSUE SPECIMEN Ordering Facility: [facility] Address: [address] [place] [address] Result Comment: Diag nostic interpretation performed at: [facility], [address] [place] [address] CLIA# [id number] Sanitary Plumber: Luis Bell MD Performed By: #### 6 6121-5 #### [facility] CLIA [id number] [address] [place] [address] [place] [facility] CLIA [id number] [address] [place] [address] [place] GROSS DESCRIPTION Normal [facility] Comment on above: Order Comment: Speci men Type: TISSUE SPECIMEN Ordering Facility: [facility] Address: [address] [place] [address] Result Comment: A. C olon, Ascending Polyp Received in formalin are multiple pieces of humphreys, soft tissue aggregating to 2.0 x 0.2 x 0.1 cm. Totally submitted in one cassette. Gross examination performed at [facility], [address] [place] [address], [place] [address] FFS 09/06/2024 11:44 PM Performed By: #### 6 6121-5 #### [facility] CLIA [id number] [address] [place] [id number] [facility] [place] [facility] CLIA [id number] 95[address] [facility] [address] OF [facility] Cerv Spine 2 or 3 Viewson Cerv Spine 2 or 3 Views [facility] Imaging Services [address] [place], [place] [id number] Cerv Spine 2 or 3 Views MR#: [id number] Acct: [id number] Name: TERESA RAINEY Rep #: [id number] : 1950 M 74 From: Crescencio Puckett MD PCP: Dr. Nathanael Rojas DO Status: DEP AMB Study: Cerv Spine 2 or 3 Views Date of Exam: 08/22/24 Exam# [id number] Ordering Dr: Florina Metz PROCEDURE: CERV SPINE [...] C6 appears intact and anatomic. Reading Location: [id number] CC: ANABELLA Warren; Dr. Nathanael Rojas DO Vegetable Packer: Signed Normal [facility] Orthopedic Visit Reporton Orthopedic Visit Report [place] [facility] [address] [place] [address] [address] [place] [address] OFFICE VISIT Date of Service: 08/22/24 MR#: [id number] Acct: [id number] Name: TERESA RAINEY Rep #: [id number] : 1950 Provider: ANABELLA Warren Age/Sex: 74/M [...] PO DAILY 05/20/19 08/22/24 Hi story naphazoline 0.78155 %-pheniramine 2 drp OP PRN PRN Allergies [...] General General: (more content not included)... Normal [facility] CNOVon 08-12-2024 CNOV Office Visit (GENSWS ) TERESA RAINEY ([id number]) 1950 M Date Time Provider Department 08/12/24 2:30 PM KARLY ALVARADO GENGRETCHENS During your visit today, we recorded the following information about you: Pulse Blood pressure Weight Height 82/minute 152/79 96.6 kg 1.676 m Karly Alvarado APRN.TODD 08/12/2024 2:53 PM Signed HISTORY AND PHYSICAL Teresa Rainey : 1950 REFERRING PHYSICIAN: Minh Gerber III [address] [place] [address] CHIEF COMPLAINT: Patient presents with: Consult HPI: [...] colonoscopy was 09/[address] Gerber at [facility]. Sedation:Fentanyl 50 micrograms IV, Midazolam 4 [...] mouth every 6 hours as needed. Fish Oil-[place]-3 Fatty Acids (FISH OIL) 340-1,000 mg cap [...] palpable masses. (more content not included)... Normal [facility] Cerv Spine 2 or 3 Viewson Cerv Spine 2 or 3 Views [facility] Imaging Services [address] [place], [place] [id number] Cerv Spine 2 or 3 Views MR#: [id number] Acct: [id number] Name: TERESA RAINEY Rep #: [id number] : 1950 M 73 From: Kevin mendoza MD PCP: Dr. Nathanael Rojas DO Status: DEP AMB Study: Cerv Spine 2 or 3 Views Date of Exam: 07/25/24 Exam# [id number] Ordering Dr: Florina Metz PROCEDURE: CERV SPINE [...] evidence of an acute abnormality. Reading Location: [place] [address] CC: ANABELLA Warren; Dr. Nathanael Rojas DO Vegetable Packer: Signed Normal [facility] Orthopedic Visit Reporton Orthopedic Visit Report [facility] [address] [place] [address] [address] [place] [address] OFFICE VISIT Date of Service: 07/25/24 MR#: [id number] Acct: [id number] Name: TERESA RAINEY Rep #: [id number] : 1950 Provider: Dr. Alexandre Yip MD Age/Sex: 73/M Location: [facility] Status: Signed Intake Vital Signs 04/09/24 12:56 [...] PO DAILY 05/20/19 07/25/24 Hi story naphazoline 0.86210 %-pheniramine 2 drp OP PRN PRN Allergies [...] by me, Dr. Alexandre Yip MD 07/25/24 0020. Part of today???s visit was documented by [...] incision well-heal (more content not included)... Normal [facility] Anion gap in Serum or Plasma Ordered By: Florina Metz on 07-11-2024 Anion gap [Moles/Vol] 19 mmol/L High 5-15 [facility] BUN/creatinine ratioOrdered By: Florina Metz on 07-11-2024 Urea nitrogen/Creatinine [Mass ratio] 17.0 mg/mg 10- [facility] Basic Metabolic Profile (BMP )on 07-11-2024 BUN/CRE 17.0 RATIO Normal - [facility] Comment on above: Performed By: #### L 100.0500, L500.2500 #### [facility] [address] [place], [address] Calcium [Mass/Vol] 9.2 mg/dL Normal 7.6-11.0 [facility] Comment on above: Performed By: #### L 100.0500, L500.2500 #### [facility] [address] [place], [address] Chloride [Moles/Vol] 100 mmol/L Normal 98-108 [facility] Comment on above: Performed By: #### L 100.0500, L500.2500 #### [facility] [address] [place], [address] CO2 [Moles/Vol] 18.9 mmol/L Low 21.0-32.0 [facility] Comment on above: Performed By: #### L 100.0500, L500.2500 #### [facility] [address] [place], [address] Creatinine [Mass/Vol] 1.14 mg/dL Normal 0.70-1.20 [facility] Comment on above: Performed By: #### L 100.0500, L500.2500 #### [facility] [address] [place], [address] ECRCL 65.02 ml/min Normal 50-250 [facility] Comment on above: Performed By: #### L 100.0500, L500.2500 #### [facility] [address] [place], [address] GAP 19 High 5-15 [facility] Comment on above: Performed By: #### L 100.0500, L500.2500 #### [facility] [address] [place], [address] GFR/1.73 sq M.predicted among non-blacks MDRD (S/P/Bld) [Vol rate/Area] 68 mL/min/{1.73_m2} Normal >60 [facility] Comment on above: Result Comment: mL/m in/1.73m2 CKD-EPI Creatinine Equation (2020) Performed By: #### L 100.0500, L500.2500 #### [facility] [address] [place], [address] Glucose [Mass/Vol] 199 mg/dL High 70-99 [facility] Comment on above: Performed By: #### L 100.0500, L500.2500 #### [facility] [address] [place], [address] Potassium [Moles/Vol] 4.6 mmol/L Normal 3.3-5.1 [facility] Comment on above: Result Comment: Hemo lysis present, Results??could be affected. ?? Performed By: #### L 100.0500, L500.2500 #### [facility] [address] [place], [address] Sodium [Moles/Vol] 138 mmol/L Normal 133-145 [facility] Comment on above: Performed By: #### L 100.0500, L500.2500 #### [facility] [address] [place], [address] Urea nitrogen [Mass/Vol] 19 mg/dL Normal 4-19 [facility] Comment on above: Performed By: #### L 100.0500, L500.2500 #### [facility] [address] [place], [address] Bedside Glucoseon 07-11-2024 FINGERSTICK GLU 213 mg/dL High 74-106 [facility] Comment on above: Result Comment: PHILIP GEMENT OF PATIENT CARE PER NURSING PROTOCOL Performed By: #### L 501.080 #### [facility] [address] [place], [address] FINGERSTICK GLU 210 mg/dL High 74-106 [facility] Comment on above: Result Comment: PHILIP GEMENT OF PATIENT CARE PER NURSING PROTOCOL Performed By: #### L 501.080 #### [facility] [address] [place], [address] CBC-Complete Blood Cnt No Di ffon 07-11-2024 Erythrocyte distribution width (RBC) [Ratio] 12.6 % Normal 11.6-14.6 [facility] Comment on above: Performed By: #### L 100.0500, L500.2500 #### [facility] [address] [place], [address] Hematocrit (Bld) [Volume fraction] 35.7 % Low 40-54 [facility] Comment on above: Performed By: #### L 100.0500, L500.2500 #### [facility] [address] [place], [address] Hemoglobin (Bld) [Mass/Vol] 12.3 g/dL Low 13.0-16.5 [facility] Comment on above: Performed By: #### L 100.0500, L500.2500 #### [facility] [address] [place], [address] MCH (RBC) [Entitic mass] 31.7 pg Normal 27.0-32.0 [facility] Comment on above: Performed By: #### L 100.0500, L500.2500 #### [facility] [address] [place], [address] MCHC (RBC) [Mass/Vol] 34.5 g/dL Normal 32-36 [facility] Comment on above: Performed By: #### L 100.0500, L500.2500 #### [facility] [address] [place], [address] MCV (RBC) [Entitic vol] 92.0 fL Normal 80-94 [facility] Comment on above: Performed By: #### L 100.0500, L500.2500 #### [facility] [address] [place], [address] Platelet mean volume (Bld) [Entitic vol] 10.8 fL Normal 6.2-12.0 [facility] Comment on above: Performed By: #### L 100.0500, L500.2500 #### [facility] [address] [place], [address] Platelets (Bld) [#/Vol] 240 10*3/uL Normal 150-450 [facility] Comment on above: Performed By: #### L 100.0500, L500.2500 #### [facility] [address] [place], [address] RBC (Bld) [#/Vol] 3.88 10*6/uL Low 4.6-6.2 [facility] Comment on above: Performed By: #### L 100.0500, L500.2500 #### [facility] [address] [place], [address] RDW SD 42.1 fl Normal 35.1-43.9 [facility] Comment on above: Performed By: #### L 100.0500, L500.2500 #### [facility] [address] [place], [address] WBC (Bld) [#/Vol] 14.4 10*3/uL High 4.4-11.0 [facility] Comment on above: Performed By: #### L 100.0500, L500.2500 #### [facility] [address] [place], [address] Carbon dioxide, total [Moles /volume] in Central venous bloodOrdered By: Florina Metz on 07-11-2024 CO2 [Moles/Vol] 18.9 mmol/L Low 21.0-32.0 [facility] Cerv Spine 2 or 3 Viewson Cerv Spine 2 or 3 Views [facility] Imaging Services [address] [place] [address] Cerv Spine 2 or 3 Views MR#: [id number] Acct: [id number] Name: TERESA RAINEY Rep #: [id number] : 1950 M 73 From: Crescencio Puckett MD PCP: Dr. Nathanael Rojas, DO Status: ADM SILVANO Study: Cerv Spine 2 or 3 Views Date of Exam: 07/11/24 Exam# [id number] Ordering Dr: Florina Metz PROCEDURE: CERV SPINE [...] prevertebral soft tissue swelling/thickening. Left anterior neck Antoni drain, safety pin and cervical collar noted. The visualized apices appear clear. RAD/Cerv Spine 2 or 3 Views IMPRESSION: Status post anterior cervical disc fusion with intervertebral disc spacers C4 through C6 appears anatomic and intact as above. No fracture or malalignment identified. Reading Location: [id number] CC: ANABELLA Warren; Dr. Nathanael Rojas DO Vegetable Packer: Signed Normal [facility] Chloride assayOrdered By: Valentine Metz on 07-11-2024 Chloride [Moles/Vol] 100 mmol/L 98-108 [facility] Erythrocyte distribution wid th (RBC) [Ratio]Ordered By: Florina Metz on 07-11-2024 Erythrocyte distribution width (RBC) [Entitic vol] 42.1 fL 35.1-43.9 [facility] Erythrocyte distribution wid th ratioOrdered By: Florina Metz on 07-11-2024 Erythrocyte distribution width (RBC) [Ratio] 12.6 % 11.6-14.6 [facility] Erythrocyte distribution wid th standard deviationOrdered By: Florina Metz on 07-11-2024 Erythrocyte distribution width (RBC) [Ratio] 42.1 fl 35.1-43.9 [facility] Estimation of creatinine paola aranceOrdered By: Florina Metz on 07-11-2024 Estimated Creatinine Clearance Calc 65.02 ml/min 50-250 [facility] GFR/1.73 sq M.predicted doc g non-blacks MDRD (S/P/Bld) [Vol rate/Area]Ordered By: Florina Metz on 07-11-2024 Estimated GFR (MDRD) Non-Af Amer 68 >60 [facility] Comment on above: mL/min/1.73m2 CKD-EP I Creatinine Equation (2020) Glomerular filtration rate ( GFR) estimation/1.73 sq m using serum, plasma, or whole bOrdered By: Florina Metz on 07-11-2024 GFR/1.73 sq M.predicted among non-blacks MDRD (S/P/Bld) [Vol rate/Area] 68 mL/min/{1.73_m2} >60 [facility] Comment on above: mL/min/1.73m2 CKD-EP I Creatinine Equation (2020) Glucose measurement at bedsi deOrdered By: Alexandre Yip on 07-11-2024 Bedside Glucose (Misc Panel) 213 mg/dL High 74-106 [facility] Comment on above: MANAGEMENT OF PATIEN T CARE PER NURSING PROTOCOL Glucose [Mass/Vol] 213 mg/dL High 74-106 [facility] Comment on above: MANAGEMENT OF PATIEN T CARE PER NURSING PROTOCOL Hematocrit Auto (Bld) [Volum e fraction]Ordered By: Florina Metz on 07-11-2024 Hematocrit (Bld) [Volume fraction] 35.7 % Low 40-54 [facility] Hemoglobin measurementOrdere d By: Florina Metz on 07-11-2024 Hemoglobin (Bld) [Mass/Vol] 12.3 g/dL Low 13.0-16.5 [facility] MCV (mean corpuscular volume ) determinationOrdered By: Florina Metz on 07-11-2024 MCV (RBC) [Entitic vol] 92.0 fL 80-94 [facility] Mean corpuscular hemoglobin (MCH) determinationOrdered By: Florina Metz on 07-11-2024 MCH (RBC) [Entitic mass] 31.7 pg 27.0-32.0 [facility] Mean corpuscular hemoglobin concentration (MCHC) determinationOrdered By: Florina Metz on 07-11-2024 MCHC (RBC) [Mass/Vol] 34.5 g/dL 32-36 [facility] Mean platelet volume determi nationOrdered By: Florina Metz on 07-11-2024 Platelet mean volume (Bld) [Entitic vol] 10.8 fL 6.2-12.0 [facility] Platelet countOrdered By: Valentine Metz on 07-11-2024 Platelets (Bld) [#/Vol] 240 10*3/uL 150-450 [facility] Potassium (Unsp spec) [Mass/ Vol]Ordered By: Florina Metz on 07-11-2024 Potassium [Moles/Vol] 4.6 mmol/L 3.3-5.1 [facility] Comment on above: Hemolysis present, R esults could be affected. Potassium measurement (mass/ volume)Ordered By: Florina Metz on 07-11-2024 Potassium (Unsp spec) [Mass/Vol] 4.6 mmol/L 3.3-5.1 [facility] Comment on above: Hemolysis present, R esults could be affected. RBC Auto (Bld) [#/Vol]Ordere d By: Florina Metz on 07-11-2024 RBC (Bld) [#/Vol] 3.88 10*6/uL Low 4.6-6.2 [facility] Serum creatinine measurement (mass/volume)Ordered By: Florina Metz on 07-11-2024 Creatinine [Mass/Vol] 1.14 mg/dL 0.70-1.20 [facility] Serum glucose measurement (m ass/volume)Ordered By: Florina Metz on 07-11-2024 Glucose [Mass/Vol] 199 mg/dL High 70-99 [facility] Serum or plasma calcium jonathan urement (mass/volume)Ordered By: Florina Metz on 07-11-2024 Calcium [Mass/Vol] 9.2 mg/dL 7.6-11.0 [facility] Serum or plasma urea nitroge n measurement (mass/volume)Ordered By: Florina Metz on 07-11-2024 Urea nitrogen [Mass/Vol] 19 mg/dL 4-19 [facility] Sodium levelOrdered By: Kacy Metz on 07-11-2024 Sodium [Moles/Vol] 138 mmol/L 133-145 [facility] White blood cell (WBC) count Ordered By: Florina Metz on 07-11-2024 WBC (Bld) [#/Vol] 14.4 10*3/uL High 4.4-11.0 [facility] Bedside Glucoseon 07-10-2024 FINGERSTICK GLU 186 mg/dL High 74-106 [facility] Comment on above: Result Comment: PHILIP MIRANDA OF PATIENT CARE PER NURSING PROTOCOL Performed By: #### L 501.080 #### [facility] [address] [place], [address] FINGERSTICK GLU 266 mg/dL High 74-106 [facility] Comment on above: Result Comment: PHILIP MIRANDA OF PATIENT CARE PER NURSING PROTOCOL Performed By: #### L 501.080 ####[facility] [id number] [place], [address] Cerv Spine 2 or 3 Viewson Cerv Spine 2 or 3 Views [facility] Imaging Services [address] [place], [place] [address] Cerv Spine 2 or 3 Views MR#: [id number] Acct: [id number] Name: TERESA RAINEY Rep #: [id number] : 1950 M 73 From: Rogelio jolley MD PCP: Dr. Nathanael Rojas DO Status: [facility] Study: Cerv Spine 2 or 3 Views Date of Exam: 07/10/24 Exam# [id number] Ordering Dr: Alexandre Yip MD PROCEDURE: Intraoperative [...] plate and screw fixation device. Reading Location: [facility] CC: Dr. Alexandre Yip MD; Dr. Nathanael Rojas DO Vegetable Packer: Signed Normal [facility] MR/POSTOP.ANEon 07-10-2024 MR/POSTOP.[facility] Medical Records Department [address] [place] [address] Anesthesia Postop Eval I 07/10/24 1058 MR#: [id number] Acct: [id number] Name: TERESA RAINEY Rep #: [id number] : 1950 73 From: Chon Epps CRNA PCP: Dr. Nathanael Rojas, DO Status:REG SDC Y Race: C Location: [place] [address] Anesthesia: Postop Eval I Current Vital Signs [...] CRNA Cosigner Signature: Date CC: Signed Normal [facility] MR/[id number] 07-10-2024 [facility] Medical Records Department [address] [place] [address] Anesthesia Postop Eval II 07/10/24 1129 MR#: [id number] Acct: [id number] Name: TREESA RAINEY NIDIA Rep #: [id number] : 1950 73 From: Jann Winston MD PCP: Dr. Nathanael Rojas, DO Status:REG SDC Y Race: C Location: [place] [address] Anesthesia Postop Eval I Sum Postop Eval Completion status Anesthesia document: Postop Eval 1 completed: Yes Anesthesia Postop Eval I Summary Anesthesia Postop Eval I Summary: Anesthesia Postop Eval I: Assessment Summary Airway patent Yes 07/10/24 10:59 REFRIGERATION SYSTEMS INSTALLER.PKEL Spontaneous unlabored Yes 07/10/24 10:59 REFRIGERATION SYSTEMS INSTALLER.PKEL respirations Mental status Asleep 07/10/24 10:59 REFRIGERATION SYSTEMS INSTALLER.PKEL nausea No 07/10/24 10:59 REFRIGERATION SYSTEMS INSTALLER.PKEL Vomiting No 07/10/24 10:59 REFRIGERATION SYSTEMS INSTALLER.PKEL Anesthesia Postop Eval I: Fluid Summary Crystalloid volume administer 2,400 07/10/24 10:59 REFRIGERATION SYSTEMS INSTALLER.PKEL (ml) Colloids volume administered ( ml) Blood Product volume administered (ml) Total IV fluid infused 2,400 07/10/24 10:59 REFRIGERATION SYSTEMS INSTALLER.PKEL Anesthesia Postop Eval I: Summary Notes Anesthesia Complication No 07/10/24 10:59 REFRIGERATION SYSTEMS INSTALLER.PKEL Anesthesia Complication Comment: Post-operative progress note Anesthesia: Postop Eval II Evaluation Mental status: Awake Pain Level: 0 nausea: No Vomiting: No 07/10/24 1129 Date Jann Catrachito Amaya Signature: Date CC: Signed Normal [facility] Operative Reporton 5 Operative Report [facility] Medical Records Department [address] [place] [address] Operative Report 07/10/24 1044 MR#: [id number] Acct: [id number] Name: TERESA RAINEY Rep #: [id number] : 1950 73 From: Alexandre Yip MD PCP: Dr. 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, kyphosis Post-Operative Diagnosis: Same Surgery/Procedure Performed: C4-6 ACDF human resources manager: Yes Leaf Coverer: Florina Metz Tasks completed by cutter first: Closing, Removing tissue, Implanting device, Hemostasis: Electrocautery [...] all DRAINS/GRAFTS/IMPLANTS that apply: Drains Drain details: [place] , Graft Graft details: Structural allograft cortical cancellous strut, DBX and Implanted device Implanted device details: [employer]tronic Theodore Elite plate instrumentation Estimated Blood Loss: 30 cc Specimen collected: No Description of surgery: Preoperative diagnosis: C4-6 disc degeneration with stenosis, radiculomyelopathy, prior C6-7 fusion, kyphosis Postoperative diagnosis: Same Name of procedure: C4-6 anterior cervical discectomy and fusion with plate instrumentation - Anterior cervical fusion C4-5, CPT code 31543 - Anterior plate instrumentation C4-6, CPT code 51827/59 - Anterior cervical fusion C5-6, CPT code 14624/51 -C4-5 structural allograft bone with DBX, CPT code 35330 -C5-6 structural allograft bone with DBX, CPT code 10426 Attending surgeon: Alexandre Yip M.D. Anesthesia: Gen. endotracheal Estimated blood loss: 30 mL Complications: None Instrumentation used: Medtronic Theodore Elite plate, LASR corticocancellous block Indications: The [...] Disc fragments were removed with the pituitary. Justice pins were placed in C4 and C5 [...] given. 7 (more content not included)... Normal [facility] Orthopedic Visit Reporton Orthopedic Visit Report [facility] [address] [place] [address] OFFICE VISIT Date of Service: 07/04/24 MR#: [id number] Acct: [id number] Name: TERESA RAINEY Rep #: [id number] : 1950 Provider: Dr. Alexandre Yip MD [...] PO DAILY 05/20/19 07/04/24 Hi story naphazoline 0.98195 %-pheniramine 2 drp OP PRN PRN Allergies [...] by me, Dr. Alexandre Yip MD 07/04/24 7677. Part of today???s visit was documented by [...] for about (more content not included)... Normal [facility] Hepatitis A AB, Totalon 06-09 HEPATITIS A,TOT Negative Normal Negative [facility] Comment on above: Result Comment: Comm ent: The HAV total antibody assay detects both IgG and IgM but does not differentiate between them. A negative result suggests susceptibility to infection. A positive result could be due to vaccination, previously resolved infection or active infection. Testing for HAV IgM should be performed if active HAV infection is suspected. [employer] offers profiles that will automatically reflex positive HAV total antibody results to IgM (e.g., panel #[id number] HAV Antibody w/ Rfx). Performed at: [facility] [address] [id number] [employer] Specialist: Kamlesh Cleveland PhD, Phone: [phone] Performed By: #### L 6787.0812, L32006006, L3890.7731, L500.2500, L100.0100, L3100.0300, BTSPAT, M100.651 ####[facility] [address] [facility]. [place], [place], [id number] Electrocardiogram reportOrde red By: Tha Mcghee on 06-28-2024 EKG study [facility] [address] [place] [address] 12 Lead EKG 06/27/24 1254 MR#: [id number] Acct: [id number] Name: TERESA RAINEY Rep #:[id number] : 1950 73 From: Tha Mcghee MD Attending Dr: Dr. Alexandre Ypi MD Status: [place] [facility]: Alexandre Yip MD [place]: [place] [facility] Sex: M C Admitted: Test Reason : [...] Abnormal ECG Confirmed by TAZ PATINO, THA ([id number]), photography editor JERRI HOU ([id number]) on 55:48:38 AM Referred By: Alexandre Yip Confirmed By: THA MCGHEE MD 06/28/24 0548 Date _ Tha Mcghee MD CC: Dr. Alexandre Yip MD; Dr. Nathanael Rojas, DO ~ Signed [facility] Work Phone: MRSA/SAID NASAL SCREENon MRSA+SAID SCRN Reason for Exam: Surgery Copy of report sent to Infection Control Printer [id number] 06/28/24 1358 VSICK. MRSA MRSA Negative S. AUREUS S. aureus PositiveA Normal [facility] Comment on above: Performed By: #### L 3890.6202, L3890.6006, L3890.6301, L500.2500, L100.0100, L3100.0300, BTSPAT, M100.651 ####[facility] [address] [facility] [place], [address] 12 Lead EKGon 06-27-2024 12 Lead EKG [facility] [address] [place] [address] 12 Lead EKG 06/27/24 1254 MR#: [id number] Acct: [id number] Name: TERESA RAINEY Rep #: [id number] : 1950 73 From: Tha Mcghee MD Attending Dr: Dr. Alexandre Yip MD Status: [place] [facility] [place]: Alexandre Yip MD Date: 06/27/24 [place] [facility] Sex: M C Admitted: Test Reason : [...] Abnormal ECG Confirmed by TAZ PATINO, THA ([id number]), photography editor JERRI HOU ([id number]) on 06/28/2024 5:48:38 AM Referred By: Alexandre Yip Confirmed By: THA MCGHEE MD 06/28/24 0548 Date Tha Mcghee MD CC: Dr. Alexandre Yip MD; Dr. Nathanael Rojas, DO Signed Normal [facility] Absolute lymphocyte countOrd ered By: Alexandre Yip on 06-27-2024 Lymphocytes Auto (Unsp spec) [#/Vol] 2.24 10*3/uL 0.83-4.51 [facility] Absolute neutrophil countOrd ered By: Alexandre Yip on 06-27-2024 Neutrophils (Bld) [#/Vol] 4.2 10*3/uL 2.0-7.7 [facility] Automated lymphocyte count a s percentage of total leukocytesOrdered By: Alexandre Yip on 06-27-2024 Lymphocytes/100 WBC Auto (Unsp spec) 29.2 % 19-41 [facility] Basic Metabolic Profile (BMP )on 06-27-2024 BUN/CRE 23.0 RATIO High 01-27 [facility] Comment on above: Performed By: #### L 3890.6202, L3890.6006, L3890.6301, L500.2500, L100.0100, L3100.0300, BTSPAT, M100.651 ####[facility] [address] [place], [address] Calcium [Mass/Vol] 9.6 mg/dL Normal 7.6-11.0 [facility] Comment on above: Performed By: #### L 3890.6202, L3890.6006, L3890.6301, L500.2500, L100.0100, L3100.0300, BTSPAT, M100.651 ####[facility] [address] [place], [place], [phone]) Chloride [Moles/Vol] 104 mmol/L Normal 98-108 [facility] Comment on above: Performed By: #### L 3890.6202, L3890.6006, L3890.6301, L500.2500, L100.0100, L3100.0300, BTSPAT, M100.651 ####[facility] [address] [place], [place], [phone](525) CO2 [Moles/Vol] 19.5 mmol/L Low 21.0-32.0 [facility] Comment on above: Performed By: #### L 3890.6202, L3890.6006, L3890.6301, L500.2500, L100.0100, L3100.0300, BTSPAT, M100.651 ####[facility] [address] [place], [place], [id number] Creatinine [Mass/Vol] 1.10 mg/dL Normal 0.70-1.20 [facility] Comment on above: Performed By: #### L 3890.6202, L3890.6006, L3890.6301, L500.2500, L100.0100, L3100.0300, BTSPAT, M100.651 ####[facility] [address] [place], [place], [id number] GAP 16 High 5-15 [facility] Comment on above: Performed By: #### L 3890.6202, L3890.6006, L3890.6301, L500.2500, L100.0100, L3100.0300, BTSPAT, M100.651 ####[facility] [address] [place], [address] GFR/1.73 sq M.predicted among non-blacks MDRD (S/P/Bld) [Vol rate/Area] 71 mL/min/{1.73_m2} Normal >60 [facility] Comment on above: Result Comment: mL/m in/1.73m2 CKD-EPI Creatinine Equation (2020) Performed By: #### L 3890.6202, L3890.6006, L3890.6301, L500.2500, L100.0100, L3100.0300, BTSPAT, M100.651 ####[facility] [address] [place], [address] Glucose [Mass/Vol] 243 mg/dL High 70-99 [facility] Comment on above: Performed By: #### L 3890.6202, L3890.6006, L3890.6301, L500.2500, L100.0100, L3100.0300, BTSPAT, M100.651 ####[facility] [address] [place], [address] Potassium [Moles/Vol] 4.6 mmol/L Normal 3.3-5.1 [facility] Comment on above: Performed By: #### L 3890.6202, L3890.6006, L3890.6301, L500.2500, L100.0100, L3100.0300, BTSPAT, M100.651 ####[facility] [address] [place], [address] Sodium [Moles/Vol] 139 mmol/L Normal 133-145 [facility] Comment on above: Performed By: #### L 3890.6202, L3890.6006, L3890.6301, L500.2500, L100.0100, L3100.0300, BTSPAT, M100.651 ####[facility] [address] [place], [address] Urea nitrogen [Mass/Vol] 25 mg/dL High 4-19 [facility] Comment on above: Performed By: #### L 3890.6202, L3890.6006, L3890.6301, L500.2500, L100.0100, L3100.0300, BTSPAT, M100.651 ####[facility] [address] [place], [address] Basophil percentageOrdered B y: Alexandre Yip on 06-27-2024 Basophils/100 WBC (Bld) 1.0 % 0-1 [facility] CBC W/Diff, Automatedon 06-09 Absolute Lymph 2.24 X10 3/uL Normal 0.83-4.51 [facility] Comment on above: Performed By: #### L 3890.6202, L3890.6006, L3890.6301, L500.2500, L100.0100, L3100.0300, BTSPAT, M100.651 ####[facility] [address] [place], [address] Absolute Neut 4.2 X10 3/uL Normal 2.0-7.7 [facility] Comment on above: Performed By: #### L 3890.6202, L3890.6006, L3890.6301, L500.2500, L100.0100, L3100.0300, BTSPAT, M100.651 ####[facility] [address] [place], [address] Basophils/100 WBC (Bld) 1.0 % Normal 0-1 [facility] Comment on above: Performed By: #### L 3890.6202, L3890.6006, L3890.6301, L500.2500, L100.0100, L3100.0300, BTSPAT, M100.651 ####[facility] [address] [place], [address] Eosinophils/100 WBC (Bld) 5.1 % High 0-5 [facility] Comment on above: Performed By: #### L 3890.6202, L3890.6006, L3890.6301, L500.2500, L100.0100, L3100.0300, BTSPAT, M100.651 ####[facility] [address] [place], [address] Erythrocyte distribution width (RBC) [Ratio] 12.2 % Normal 11.6-14.6 [facility] Comment on above: Performed By: #### L 3890.6202, L3890.6006, L3890.6301, L500.2500, L100.0100, L3100.0300, BTSPAT, M100.651 ####[facility] [address] [place], [address] Hematocrit (Bld) [Volume fraction] 41.2 % Normal 40-54 [facility] Comment on above: Performed By: #### L 3890.6202, L3890.6006, L3890.6301, L500.2500, L100.0100, L3100.0300, BTSPAT, M100.651 ####[facility] [address] [place], [address] Hemoglobin (Bld) [Mass/Vol] 14.3 g/dL Normal 13.0-16.5 [facility] Comment on above: Performed By: #### L 3890.6202, L3890.6006, L3890.6301, L500.2500, L100.0100, L3100.0300, BTSPAT, M100.651 ####[facility] [address] [place], [address] IG% 0.400 Normal 0.0-0.9 [facility] Comment on above: Result Comment: IG% - Immature Granulocytes (promyelocytes, myelocytes and metamyelocytes) > 1% indicates that a LEFT SHIFT is Present. Performed By: #### L 3890.6202, L3890.6006, L3890.6301, L500.2500, L100.0100, L3100.0300, BTSPAT, M100.651 ####[facility] [address] [place], [address] Lymphocytes/100 WBC (Bld) 29.2 % Normal 19-41 [facility] Comment on above: Performed By: #### L 3890.6202, L3890.6006, L3890.6301, L500.2500, L100.0100, L3100.0300, BTSPAT, M100.651 ####[facility] [address] [place], [address] MCH (RBC) [Entitic mass] 31.7 pg Normal 27.0-32.0 [facility] Comment on above: Performed By: #### L 3890.6202, L3890.6006, L3890.6301, L500.2500, L100.0100, L3100.0300, BTSPAT, M100.651 ####[facility] [address] [place], [address] MCHC (RBC) [Mass/Vol] 34.7 g/dL Normal 32-36 [facility] Comment on above: Performed By: #### L 3890.6202, L3890.6006, L3890.6301, L500.2500, L100.0100, L3100.0300, BTSPAT, M100.651 ####[facility] [address] [place], [address] MCV (RBC) [Entitic vol] 91.4 fL Normal 80-94 [facility] Comment on above: Performed By: #### L 3890.6202, L3890.6006, L3890.6301, L500.2500, L100.0100, L3100.0300, BTSPAT, M100.651 ####[facility] [address] [place], [address] Monocytes/100 WBC (Bld) 9.1 % Normal 0-10 [facility] Comment on above: Performed By: #### L 3890.6202, L3890.6006, L3890.6301, L500.2500, L100.0100, L3100.0300, BTSPAT, M100.651 ####[facility] [address] [place], [address] Neutrophils/100 WBC (Bld) 55.2 % Normal 47-70 [facility] Comment on above: Performed By: #### L 3890.6202, L3890.6006, L3890.6301, L500.2500, L100.0100, L3100.0300, BTSPAT, M100.651 ####[facility] [address] [place], [address] Nucleated RBC (Bld) [#/Vol] 0 10*3/uL Normal 0-5 [facility] Comment on above: Performed By: #### L 3890.6202, L3890.6006, L3890.6301, L500.2500, L100.0100, L3100.0300, BTSPAT, M100.651 ####[facility] [address] [place], [address] Platelet mean volume (Bld) [Entitic vol] 10.6 fL Normal 6.2-12.0 [facility] Comment on above: Performed By: #### L 3890.6202, L3890.6006, L3890.6301, L500.2500, L100.0100, L3100.0300, BTSPAT, M100.651 ####[facility] [address] [place], [address] Platelets (Bld) [#/Vol] 253 10*3/uL Normal 150-450 [facility] Comment on above: Performed By: #### L 3890.6202, L3890.6006, L3890.6301, L500.2500, L100.0100, L3100.0300, BTSPAT, M100.651 ####[facility] [address] [place], [address] RBC (Bld) [#/Vol] 4.51 10*6/uL Low 4.6-6.2 [facility] Comment on above: Performed By: #### L 3890.6202, L3890.6006, L3890.6301, L500.2500, L100.0100, L3100.0300, BTSPAT, M100.651 ####[facility] [address] [place], [place], [phone](879) RDW SD 40.7 fl Normal 35.1-43.9 [facility] Comment on above: Performed By: #### L 3890.6202, L3890.6006, L3890.6301, L500.2500, L100.0100, L3100.0300, BTSPAT, M100.651 ####[facility] [address] [place], [address] WBC (Bld) [#/Vol] 7.7 10*3/uL Normal 4.4-11.0 [facility] Comment on above: Performed By: #### L 3890.6202, L3890.6006, L3890.6301, L500.2500, L100.0100, L3100.0300, BTSPAT, M100.651 ####[facility] [address] [place], [address] Eosinophil percentageOrdered By: Alexandre Yip on 06-27-2024 Eosinophils/100 WBC (Bld) 5.1 % High 0-5 [facility] HBV surface Ab Ql (S)Ordered By: Alexandre Yip on 06-27-2024 Hepatitis B Surface Antibody Non-Reactive [facility] Comment on above: <8.5 mIU/mL: Non-[place] ctive8.5<= x <11.5 mIU/mL: Indeterminate>=11.5 mIU/mL: Reactive Non Reactive: Inconsistent with immunity less than <10 mIU/mL Reactive: Consistent with immunity greater than or equal to 10 mIU/mL Hemoglobin A1con 06-27-2024 HbA1c (Bld) [Mass fraction] 7.5 % Normal <=5.6 [facility] Comment on above: Performed By: #### L 501.5200, L501.9985 ####[facility] [address] [place], [address] Hemoglobin A1c percentageOrd ered By: Bobby Mendez on 06-27-2024 HbA1c (Bld) [Mass fraction] 7.5 % >5.7 [facility] Hepatitis A virus total anti body assayOrdered By: Alexandre Yip on 06-27-2024 Hepatitis A Antibody Total Negative Negative [facility] Comment on above: Comment: The HAV tot [...] HAVtotal antibody results to IgM (e.g., panel #[id number] HAVAntibody w/ Rfx).Performed at: [address] [id number] Director: Kamlesh Cleveland PhD, Phone: [phone] Hepatitis C antibodyOrdered By: Alexandre Yip on 06-27-2024 Hepatitis C Antibody Non-Reactive Nonreactive [facility] Comment on above: Reactive: Presumptiv e evidence of antibodies to HCV. Follow CDC recommendations for supplemental testing.Non-Reactive: Antibodies to HCV were not detected; does not exclude the possibility of exposure to HCVReactive Results are presumptive evidence of antibodies to HCV. Follow CDC recommendations for supplemental testing.Order confirmation testing: HCV Quant by PCR testing - HCVPCR #[id number] Non Reactive: < 0.8 Equivocal: >/= 0.8 to < 1.0 Reactive: >/= 1.0The CDC requires that a reactive/equivocal HCV antibody result be sent out for confirmation. HCV Quant by PCR testing. Immature granulocytes/100 WB C Auto (Bld)Ordered By: Alexandre Yip on 06-27-2024 Immature granulocytes/100 WBC (Bld) 0.400 % 0.0-0.9 [facility] Comment on above: IG% - Immature Granu locytes (promyelocytes, myelocytes and metamyelocytes) > 1% indicates that a LEFT SHIFT is Present. L3890.6006on 06-27-2024 HIV Non-Reactive Normal Nonreactive [facility] Comment on above: Result Comment: Non- Reactive Reactive Repeatedly reactive samples must be confirmed according to CDC recommended confirmatory algorithms. The subresults for either HIVAG or AHIV can be used as an aid in the selection of the confirmation algorithm for reactive samples. Send out specimens with Reactive results to [facility] for confirmation. Order the HIV antibody detection and differentiation: lc#[id number] Performed By: #### L 3890.6202, L3890.6006, L3890.6301, L500.2500, L100.0100, L3100.0300, BTSPAT, M100.651 ####[facility] [address] [place], [place], [id number] L3890.6202on 06-27-2024 HEP B Surf Ab Non-Reactive Normal [facility] Comment on above: Result Comment: <8.5 mIU/mL: Non-Reactive 8.5<= x <11.5 mIU/mL: Indeterminate >=11.5 mIU/mL: Reactive Non Reactive: Inconsistent with immunity less than <10 mIU/mL Reactive: Consistent with immunity greater than or equal to 10 mIU/mL Performed By: #### L 3890.6202, L3890.6006, L3890.6301, L500.2500, L100.0100, L3100.0300, BTSPAT, M100.651 ####[facility] [address] [place], [address] L3890.6301on 06-27-2024 Hepatitis C Ab Non-Reactive Normal Nonreactive [facility] Comment on above: Result Comment: Reac tive: Presumptive evidence of antibodies to HCV. Follow CDC recommendations for supplemental testing. Non-Reactive: Antibodies to HCV were not detected; does not exclude the possibility of exposure to HCV Reactive Results are presumptive evidence of antibodies to HCV. Follow CDC recommendations for supplemental testing. Order confirmation testing: HCV Quant by PCR testing - HCVPCR #[id number] Non Reactive: < 0.8 Equivocal: >/= 0.8 to < 1.0 Reactive: >/= 1.0 The CDC requires that a reactive/equivocal HCV antibody result be sent out for confirmation. HCV Quant by PCR testing. Performed By: #### L 3890.6202, L3890.6006, L3890.6301, L500.2500, L100.0100, L3100.0300, BTSPAT, M100.651 ####[facility] [address] [facility] [place], [address] Lymphocytes Auto (Unsp spec) [#/Vol]Ordered By: Alexandre Yip on 06-27-2024 Lymphocytes (Bld) [#/Vol] 2.24 10*3/uL 0.83-4.51 [facility] Lymphocytes/100 WBC Auto (Un sp spec)Ordered By: Alexandre Yip on 06-27-2024 Lymphocytes/100 WBC (Bld) 29.2 % 19-41 [facility] MR/PAT.ANEon 06-27-2024 MR/PAT.ANE [facility] Medical Records Department [address] [place] [address] PAT - Anesthesia 06/27/24 1649 MR#: [id number] Acct: [id number] Name: TERESA RAINEY Rep #: [id number] : 1950 73 From: Bobby Mendez MD PCP: Dr. Nathanael Rojas, DO Status[place] [facility] [place] Race: C [place] [facility] Pre-Assessment Diagnosis/Proposed Procedure Planned Operative Procedure(s): ANTERIOR CERVICAL DISC FUSION C4-5 C5-6 Anesthesia History Anesthesia History - fowl blood tester: Anesthesia History - fowl blood tester Hx Hospitalization No 06/26/24 09:09 Any Problems [...] take am of surgery PONV PONV - fowl blood tester: PONV - fowl blood tester Female No 06/26/24 09:09 HX of Motion [...] 04/09/24 12:56 Respiratory Assessment Respiratory Assessment - fowl blood tester: Respiratory Tract Infection Hx - fowl blood tester Hx Respiratory Tract Infection No 06/26/24 09:09 STOP Sleep Apnea STOP Sleep Apnea - fowl blood tester: STOP Sleep Apnea - fowl blood tester Hx Hypertension Yes: CONTROLLED WITH MED 06/26/24 [...] Tobacco Use History Tobacco Use History - fowl blood tester: Tobacco Use History - fowl blood tester Tobacco Use Smoking Status Current every day smoker 06/26/24 09:09 Hx Tobacco Use Yes 06/26/24 09:09 Years Smoking Packs Smoked per Day Smoking Cessation Date was within the last 15 years Hx Smoking Cessation Date Hx Smoking Cessation Counseling Hematologic Medial History Hematologic Hx - fowl blood tester: 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 Normal [facility] MRSA screenOrdered By: Joe Yip on 06-27-2024 MRSA DNA SUJATA+probe Ql (Unsp spec) [facility] Nasal Screen [facility]-27[facility]2024 Magnesium [Mass/Vol] 2.8 mg/dL High 1.5-2.2 [facility] Comment on above: Performed By: #### L 501.5200, L501.9985 #### [facility] [address] [place], [place], [address] Magnesium (Unsp spec) [Mass/ Vol]Ordered By: Bobby Mendez on 06-27-2024 Magnesium [Mass/Vol] 2.8 mg/dL High 1.5-2.2 [facility] Magnesium measurement (mass/ volume)Ordered By: Bobby Mendez on 06-27-2024 Magnesium (Unsp spec) [Mass/Vol] 2.8 mg/dL High 1.5-2.2 [facility] Monocyte percentageOrdered B y: Alexandre Yip on 06-27-2024 Monocytes/100 WBC (Bld) 9.1 % 0-10 [facility] Neutrophil percentageOrdered By: Alexandre Yip on 06-27-2024 Neutrophils/100 WBC (Bld) 55.2 % 47-70 [facility] No Panel InformationOrdered By: Alexandre Yip on 06-27-2024 HIV (1&2) Antibody Non-Reactive Nonreactive [facility] Comment on above: Non-ReactiveReactive Repeatedly reactive samples must be confirmed according to CDC recommended confirmatory algorithms. The subresults for either HIVAG or AHIV can be used as an aid in the selection of the confirmation algorithm for reactive samples.Send out specimens with Reactive results to [facility] for confirmation.Order the HIV antibody detection and differentiation: #[id number] Nucleated red blood cell per centageOrdered By: Alexandre Yip on 06-27-2024 Nucleated RBC/100 WBC (Bld) [Ratio] 0 % 0-5 [facility] Serum hepatitis B virus surf [place] antibody detectionOrdered By: Alexandre Yip on 06-27-2024 HBV surface Ab Ql (S) Non-Reactive [facility] Comment on above: <8.5 mIU/mL: Non-[place] ctive8.5<= x <11.5 mIU/mL: Indeterminate>=11.5 mIU/mL: Reactive Non Reactive: Inconsistent with immunity less than <10 mIU/mL Reactive: Consistent with immunity greater than or equal to 10 mIU/mL Type AND Screen - PAT ONLYon 06-27-2024 ABO and Rh group Nom (Bld) Blood group B Rh(D) positive Normal [facility] Comment on above: Order Comment: Surge ry Date: 07/10/24Reason for Laboratory Test [id number]/ANNSCERVICAL DISC FUSION C4-5,5-6 Performed By: #### L 3890.6202, L3890.6006, L3890.6301, L500.2500, L100.0100, L3100.0300, BTSPAT, M100.651 ####[facility] [address] [facility] [place], [address] Cerv Spine 4 or 5 Viewson Cerv Spine 4 or 5 Views [facility] Imaging Services [address] [place], [place] [address] Cerv Spine 4 or 5 Views MR#: [id number] Acct: [id number] Name: TERESA RAINEY Rep #: [id number] : 1950 M 73 From: Nathanael Moran MD PCP: Dr. Nathanael Rojas DO Status: DEP AMB Study: Cerv Spine 4 or 5 Views Date of Exam: 05/17/24 Exam# [id number] Ordering Dr: Alexandre Yip MD EXAM: XR [...] the cervical spine as described. Reading Location[facility] CC: Dr. Alexandre Yip MD; Dr. Nathanael Ashwini, DO Vegetable Packer: Signed Normal [facility] Orthopedic Visit Reporton Orthopedic Visit Report [facility] [address] [place] [address] OFFICE VISIT Date of Service: 05/17/24 MR#: [id number] Acct: [id number] Name: TERESA RAINEY Rep #: [id number] : 1950 Provider: Dr. Alexandre Yip MD [...] PO DAILY 05/20/19 05/17/24 Hi story naphazoline 0.90275 %-pheniramine 2 drp OP PRN PRN Allergies [...] by me, Dr. Alexandre Yip MD 05/17/24 9107. Part of today???s visit was documented by [...] LUMBAR Musculos (more content not included)... Normal [facility] L/S Spine Min 4 Viewson 03-12 L/S Spine Min 4 Views [facility] [address] [place] [address] L/S Spine Min 4 Views MR#: [id number] Acct: [id number] Name: TERESA RAINEY Rep #: [id number] : 1950 M 73 From: Sumeet Orona MD PCP: Dr. Nathanael Rojas, DO Status: DEP AMB Study: L/S Spine Min 4 Views Date of Exam: 04/09/24 Exam# [id number] Ordering Dr: Florina Metz [id number] STUDY: X-RAY - LUMBAR SPINE REASON FOR [...] CC: ANABELLA Warren; Dr. Nathanael Rojas DO Vegetable Packer: Signed Normal [facility] Orthopedic Visit Reporton Orthopedic Visit Report [facility] [address] [place] [address] OFFICE VISIT Date of Service: 04/09/24 MR#: [id number] Acct: [id number] Name: TERESA RAINEY Rep #: [id number] : 1950 Provider: Dr. Alexandre Yip MD [...] ea PO DAILY 05/20/19 04/09/24 History naphazoline 0.77756 %-pheniramine 2 drp OP PRN PRN Allergies [...] by me, Dr. Alexandre Yip MD 04/09/24 2855. Part of today???s visit was documented by [...] exam of (more content not included)... Normal [facility] No Panel InformationOrdered By: Esthela Leo on 08-07-2023 Prostate Specific Antigen Screen 2.51 ng/mL 0.00-4.00 [facility] Comment on above: This test was perfor med using the TPSA assay method for the[employer] chemistry system. Values obtained with differentassay methods cannot be used interchangably.When changing PSA assays in the course of monitoring apatient, additional sequential testing should be carriedout to confirm baseline values. Absolute lymphocyte countOrd ered By: Blas Copeland on 01-02-2023 Lymphocytes Auto (Unsp spec) [#/Vol] 1.64 10*3/uL 0.83-4.51 [facility] Basophil percentageOrdered B y: Blas Copeland on 01-02-2023 Basophils/100 WBC (Bld) 0.4 % 0-1 [facility] Bilirubin [Mass/Vol] 1.00 mg/dL 0.20-1.00 [facility] Comment on above: For patients on eltr ombopag therapy, use of Dimension [place] TBIL is not recommended. Chloride [Moles/Vol] 100 mmol/L 98-107 [facility] Eosinophils/100 WBC (Bld) 2.0 % 0-5 [facility] Glucose [Mass/Vol] 258 mg/dL 74-106 [facility] Comment on above: Glucose result great er than or equal to 200 mg/dLsuggests DIABETES MELLITUS per A.D.A. criteria. Neutrophils (Bld) [#/Vol] 6.7 10*3/uL 2.0-7.7 [facility] Neutrophils/100 WBC (Bld) 70.8 % 47-70 [facility] Potassium [Moles/Vol] 3.7 mmol/L 3.5-5.1 [facility] Protein [Mass/Vol] 7.1 g/dL 6.4-8.2 [facility] Sodium [Moles/Vol] 134 mmol/L 136-145 [facility] WBC (Bld) [#/Vol] 9.4 10*3/uL 4.4-11.0 [facility] Basophil percentage 5-10 SEEN /hpf 0-5 [facility] Bilirubin Test strip Ql (U)O rdered By: Blas Copeland on 01-02-2023 Bilirubin Ql (U) Negative Negative [facility] Blood erythrocytes count (nu mber/volume)Ordered By: Blas Copeland on 01-02-2023 RBC (Bld) [#/Vol] 3.75 10*6/uL 4.6-6.2 [facility] Blood hemoglobin measurement (mass/volume)Ordered By: Blas Copeland on 01-02-2023 Hemoglobin (Bld) [Mass/Vol] 11.6 g/dL 13.0-16.5 [facility] Blood lymphocytes/100 leukoc ytesOrdered By: Blas Copeland on 01-02-2023 Lymphocytes/100 WBC (Bld) 17.4 % 19-41 [facility] Blood monocytes/100 leukocyt esOrdered By: Blas Copeland on 01-02-2023 Monocytes/100 WBC (Bld) 8.9 % 0-10 [facility] Blood platelet mean volumeOr dered By: Blas Copeland on 01-02-2023 Platelet mean volume (Bld) [Entitic vol] 10.5 fL 6.2-12.0 [facility] Determination of erythrocyte mean corpuscular volume (MCV)Ordered By: Blas Copeland on 01-02-2023 MCV (RBC) [Entitic vol] 92.3 fL 80-94 [facility] Hematocrit Auto (Bld) [Volum e fraction]Ordered By: Blas Copeland on 01-02-2023 Hematocrit (Bld) [Volume fraction] 34.6 % 40-54 [facility] Ketones Test strip Ql (U)Ord ered By: Blas Copeland on 01-02-2023 Ketones Ql (U) 15 mg/dl Negative [facility] Laboratory - Chemistry and C hemistry - challengeOrdered By: Blas Copeland on 01-02-2023 ALP [Catalytic activity/Vol] 61 U/L 45-117 [facility] ALT [Catalytic activity/Vol] 22 U/L 16-61 [facility] CO2 [Moles/Vol] 25.0 mmol/L 21.0-32.0 [facility] Globulin (S) [Mass/Vol] 4.2 g/dL 2.2-4.2 [facility] Urea nitrogen/Creatinine [Mass ratio] 15.1 mg/mg 10-20 [facility] Laboratory - Hematology and Cell countsOrdered By: Blas Copeland on 09-25-2023 Erythrocyte distribution width (RBC) [Entitic vol] 40.7 fL 35.1-43.9 [facility] Erythrocyte distribution width (RBC) [Ratio] 12.0 % 11.6-14.6 [facility] Immature granulocytes/100 WBC (Bld) 0.500 % 0.0-0.9 [facility] Comment on above: IG% - Immature Granu locytes (promyelocytes, myelocytes and metamyelocytes) > 1% indicates that a LEFT SHIFT is Present. MCH (RBC) [Entitic mass] 30.9 pg 27.0-32.0 [facility] Nucleated RBC/100 WBC (Bld) [Ratio] 0 % 0-5 [facility] MCHC Auto (RBC) [Mass/Vol]Or dered By: Blas Copeland on 01-02-2023 MCHC (RBC) [Mass/Vol] 33.5 g/dL 32-36 [facility] Mucus LM Ql (Urine sed)Order ed By: Blas Copeland on 01-02-2023 Mucus Ql (Urine sed) 0 SEEN /hpf [facility] Nitrite Test strip Ql (U)Ord ered By: Blas Copeland on 01-02-2023 Nitrite Ql (U) Negative Negative [facility] No Panel InformationOrdered By: Blas Copeland on 01-02-2023 Estimated Creatinine Clearance Calc 56.84 ml/min [facility] Estimated GFR (MDRD) Amer 88 mL/min >60 [facility] Comment on above: GFR Calc Estimated GFR (MDRD) Non-Af Amer 73 mL/min >60 [facility] Comment on above: Non- GFR Calc Platelets bldOrdered By: Dave Copeland on 01-02-2023 Platelets (Bld) [#/Vol] 225 10*3/uL 150-450 [facility] Protein Test strip Ql (U)Ord ered By: Blas Copeland on 01-02-2023 Protein Ql (U) 30 mg/dl Negative [facility] Serum or plasma albumin jonathan urement (mass/volume)Ordered By: Blas Copeland on 01-02-2023 Albumin [Mass/Vol] 2.9 g/dL 3.2-5.0 [facility] Serum or plasma albumin/glob ulin mass ratioOrdered By: Blas Copeland on 01-02-2023 Albumin/Globulin [Mass ratio] 0.7 {ratio} 0.9-2.4 [facility] Serum or plasma calcium jonathan urement (mass/volume)Ordered By: Blas Copeland on 01-02-2023 Calcium [Mass/Vol] 8.9 mg/dL 8.5-10.1 [facility] Serum or plasma creatinine m easurement (mass/volume)Ordered By: Blas Copeland on 01-02-2023 Creatinine [Mass/Vol] 1.06 mg/dL 0.70-1.30 [facility] Comment on above: The validity of the calculated GFR & GFRAA in patients over 70 years has not been determined. Clinical correlation is essential. Serum or plasma urea nitroge n measurement (mass/volume)Ordered By: Blas Copeland on 01-02-2023 Urea nitrogen [Mass/Vol] 16 mg/dL 7-18 [facility] Squamous epithelial cells de tection in urine sediment by light microscopyOrdered By: Blas Copeland on 01-02-2023 Epithelial cells.squamous LM Ql (Urine sed) 0 SEEN /hpf 0-5 [facility] Thin prep Papanicolaou smear with manual screeningOrdered By: Blas Copeland on 01-02-2023 Thin prep Papanicolaou smear with manual screening 10 U/L 15-37 [facility] Thin prep Papanicolaou smear with manual screening 9 5-15 [facility] Urine blood detectionOrdered By: Blas Copeland on 01-02-2023 RBC Ql (U) 10 /ul Negative [facility] RBC Ql (U) Not Reportable [facility] Urine clarityOrdered By: Dave Copeland on 01-02-2023 Clarity (U) Clear Clear [facility] Urine color determinationOrd ered By: Blas Copeland on 01-02-2023 Color (U) Yellow Yellow [facility] Urine glucose detectionOrder ed By: Blas Copeland on 01-02-2023 Glucose Ql (U) 100 mg/dl Normal [facility] Urine leukocyte esterase det ection by dipstickOrdered By: Blas Copeland on 01-02-2023 Leukocyte esterase Test strip Ql (U) 100 /ul Negative [facility] Urine pHOrdered By: Blas nur on 01-02-2023 pH (U) 6.0 [pH] 5.0 - 8.0 [facility] Urine sediment bacteria coun t by microscopy (number/high power field)Ordered By: Blas Copeland on 01-02-2023 Bacteria LM.HPF (Urine sed) [#/Area] 0 /[HPF] None Seen [facility] Urine specific gravity measu rementOrdered By: Blas Copeland on 01-02-2023 Specific gravity (U) [Rel density] 1.010 1.002-1.030 [facility] Urobilinogen Auto test strip Ql (U)Ordered By: Blas Copeland on 01-02-2023 Urobilinogen Ql (U) Normal mg/dl Normal [facility] Absolute lymphocyte countOrd ered By: Bessie Haro on 12-12-2022 Lymphocytes Auto (Unsp spec) [#/Vol] 1.20 10*3/uL 0.83-4.51 [facility] Basophil percentageOrdered B y: Bessie Haro on 12-12-2022 Basophil percentage 0-5 SEEN /hpf 0-5 [facility] Basophils/100 WBC (Bld) 0.5 % 0-1 [facility] Chloride [Moles/Vol] 103 mmol/L 98-107 [facility] Eosinophils/100 WBC (Bld) 0.4 % 0-5 [facility] Glucose [Mass/Vol] 157 mg/dL 74-106 [facility] Comment on above: Fasting Glucose resu lt greater than or equal to 126 mg/dL suggests DIABETES MELLITUS per A.D.A. criteria. Lactate [Moles/Vol] 2.5 mmol/L 0.4-2.0 [facility] Comment on above: Critical Result(s) C alled at: 20:57:32 12/12/2022 by: Korina Kilgore Results read back by same. Neutrophils (Bld) [#/Vol] 5.4 10*3/uL 2.0-7.7 [facility] Neutrophils/100 WBC (Bld) 70.3 % 47-70 [facility] Potassium [Moles/Vol] 4.1 mmol/L 3.5-5.1 [facility] Sodium [Moles/Vol] 137 mmol/L 136-145 [facility] WBC (Bld) [#/Vol] 7.7 10*3/uL 4.4-11.0 [facility] Bilirubin Test strip Ql (U)O rdered By: Bessie Haro on 12-12-2022 Bilirubin Ql (U) 6 mg/dL Negative [facility] Comment on above: COLOR OF URINE MAY A FFECT DIPSTICK RESULTS. Blood erythrocytes count (nu mber/volume)Ordered By: Bessie Haro on 12-12-2022 RBC (Bld) [#/Vol] 4.08 10*6/uL 4.6-6.2 [facility] Blood hemoglobin measurement (mass/volume)Ordered By: Bessie Haro on 12-12-2022 Hemoglobin (Bld) [Mass/Vol] 12.9 g/dL 13.0-16.5 [facility] Blood lymphocytes/100 leukoc ytesOrdered By: Bessie Haro on 12-12-2022 Lymphocytes/100 WBC (Bld) 15.5 % 19-41 [facility] Blood monocytes/100 leukocyt esOrdered By: Bessie Haro on 12-12-2022 Monocytes/100 WBC (Bld) 12.9 % 0-10 [facility] Blood platelet mean volumeOr dered By: Bessie Haro on 12-12-2022 Platelet mean volume (Bld) [Entitic vol] 10.4 fL 6.2-12.0 [facility] Culture, urineOrdered By: Attila Haro on 12-12-2022 Bacteria identified Cx Nom (U) Culture exhibits no growth. [facility] Determination of erythrocyte mean corpuscular volume (MCV)Ordered By: Bessie Haro on 12-12-2022 MCV (RBC) [Entitic vol] 95.8 fL 80-94 [facility] Hematocrit Auto (Bld) [Volum e fraction]Ordered By: Bessie Haro on 12-12-2022 Hematocrit (Bld) [Volume fraction] 39.1 % 40-54 [facility] Ketones Test strip Ql (U)Ord ered By: Bessie Haro on 12-12-2022 Ketones Ql (U) 15 mg/dl Negative [facility] Laboratory - Chemistry and C hemistry - challengeOrdered By: Bessie Haro on 12-12-2022 CO2 [Moles/Vol] 27.0 mmol/L 21.0-32.0 [facility] Urea nitrogen/Creatinine [Mass ratio] 15.1 mg/mg 10-20 [facility] Laboratory - Hematology and Cell countsOrdered By: Bessie Haro on 12-12-2022 Erythrocyte distribution width (RBC) [Entitic vol] 42.6 fL 35.1-43.9 [facility] Erythrocyte distribution width (RBC) [Ratio] 12.1 % 11.6-14.6 [facility] Immature granulocytes/100 WBC (Bld) 0.400 % 0.0-0.9 [facility] Comment on above: IG% - Immature Granu locytes (promyelocytes, myelocytes and metamyelocytes) > 1% indicates that a LEFT SHIFT is Present. MCH (RBC) [Entitic mass] 31.6 pg 27.0-32.0 [facility] Nucleated RBC/100 WBC (Bld) [Ratio] 0 % 0-5 [facility] Laboratory - Microbiology an d Antimicrobial susceptibilityOrdered By: Bessie Haro on 12-12-2022 Bacteria identified Cx Nom (Bld) No growth in 5 days. [facility] MCHC Auto (RBC) [Mass/Vol]Or dered By: Bessie Haro on 12-12-2022 MCHC (RBC) [Mass/Vol] 33.0 g/dL 32-36 [facility] Mucus LM Ql (Urine sed)Order ed By: Bessie Haro on 12-12-2022 Mucus Ql (Urine sed) 0 SEEN /hpf [facility] Nitrite Test strip Ql (U)Ord ered By: Bessie Haro on 12-12-2022 Nitrite Ql (U) Positive Negative [facility] No Panel InformationOrdered By: Bessie Haro on 12-12-2022 Estimated Creatinine Clearance Calc 43.35 ml/min [facility] Estimated GFR (MDRD) Amer 65 mL/min >60 [facility] Comment on above: GFR Calc Estimated GFR (MDRD) Non-Af Amer 53 mL/min >60 [facility] Comment on above: Non- GFR Calc Platelets bldOrdered By: Rosanna Haro on 12-12-2022 Platelets (Bld) [#/Vol] 189 10*3/uL 150-450 [facility] Protein Test strip Ql (U)Ord ered By: Bessie Haro on 12-12-2022 Protein Ql (U) 100 mg/dl Negative [facility] Serum or plasma calcium jonathan urement (mass/volume)Ordered By: Bessie Haro on 12-12-2022 Calcium [Mass/Vol] 9.3 mg/dL 8.5-10.1 [facility] Serum or plasma creatinine m easurement (mass/volume)Ordered By: Bessie Haro on 12-12-2022 Creatinine [Mass/Vol] 1.39 mg/dL 0.70-1.30 [facility] Comment on above: The validity of the calculated GFR & GFRAA in patients over 70 years has not been determined. Clinical correlation is essential. Serum or plasma urea nitroge n measurement (mass/volume)Ordered By: Bessie Haro on 12-12-2022 Urea nitrogen [Mass/Vol] 21 mg/dL 7-18 [facility] Squamous epithelial cells de tection in urine sediment by light microscopyOrdered By: Bessie Haro on 12-12-2022 Epithelial cells.squamous LM Ql (Urine sed) 0 SEEN /hpf 0-5 [facility] Thin prep Papanicolaou smear with manual screeningOrdered By: Bessie Haro on 12-12-2022 Thin prep Papanicolaou smear with manual screening 7 5-15 [facility] Urine blood detectionOrdered By: Bessie Haro on 12-12-2022 RBC Ql (U) 250 /ul Negative [facility] RBC Ql (U) > 100 SEEN /hpf 0-5 [facility] Urine clarityOrdered By: Rosanna Haro on 12-12-2022 Clarity (U) Cloudy Clear [facility] Urine color determinationOrd ered By: Bessie Haro on 12-12-2022 Color (U) Brown Yellow [facility] Urine glucose detectionOrder ed By: Bessie Haro on 12-12-2022 Glucose Ql (U) 100 mg/dl Normal [facility] Urine leukocyte esterase det ection by dipstickOrdered By: Bessie Haro on 12-12-2022 Leukocyte esterase Test strip Ql (U) 100 /ul Negative [facility] Urine pHOrdered By: Bessie Haro on 12-12-2022 pH (U) 5.0 [pH] 5.0 - 8.0 [facility] Urine sediment bacteria coun t by microscopy (number/high power field)Ordered By: Bessie Haro on 12-12-2022 Bacteria LM.HPF (Urine sed) [#/Area] 1 /[HPF] None Seen [facility] Urine specific gravity measu rementOrdered By: Bessie Haro on 12-12-2022 Specific gravity (U) [Rel density] 1.020 1.002-1.030 [facility] Urobilinogen Auto test strip Ql (U)Ordered By: Bessie Haro on 12-12-2022 Urobilinogen Ql (U) 8 mg/dl Normal [facility] Glucose Glucometer (BldC) [M ass/Vol]Ordered By: Duke Trinh on 12-09-2022 Glucose [Mass/Vol] 117 mg/dL 74-106 [facility] Comment on above: MANAGEMENT OF PATIEN T CARE PER NURSING PROTOCOL Laboratory - Drug toxicology Ordered By: Yamile Hines on 11-30-2022 Amphetamines Ql (U) Negative <1000 ng/mL [facility] Benzodiazepines Ql (U) Negative < 200 ng/mL [facility] Cannabinoids Screen Ql (U) Negative < 50 ng/mL [facility] Cocaine Ql (U) Negative < 300 ng/mL [facility] Opiates Ql (U) Negative < 300 ng/mL [facility] No Panel InformationOrdered By: Yamile Hines on 11-30-2022 MDMA (Ecstasy) Screen Negative < 500 ng/mL [facility] Miscellaneous Test See comment [facility] Comment on above: [id number] 6+OXYCODONE-B UND (ng/mL) DRUG RESULT SCREEN CUTOFF____ [...] Conf,MS,UR 455 ng/mL 300 TESTING PERFORMED AT [facility]. ORIGINAL REPORT ON FILE IN LAB CONTAINS ADDITIONAL TEST SITE INFORMATION. Urine Barbiturates Screen Negative < 200 ng/mL [facility] Urine Drug Screen Comment [facility] Comment on above: CONFIRMATORY TESTING FOR ALL [...] Methadone Screen Negative < 300 ng/mL [facility] Urine phencyclidine (PCP) de tectionOrdered By: Yamile Hines on 11-30-2022 Phencyclidine Ql (U) Negative < 25 ng/mL [facility] Basophil percentageOrdered B y: Nathanael Rojas on 11-15-2022 Chloride [Moles/Vol] 109 mmol/L 98-107 [facility] Glucose [Mass/Vol] 86 mg/dL 74-106 [facility] Potassium [Moles/Vol] 4.3 mmol/L 3.5-5.1 [facility] Comment on above: Slight Hemolysis, Re sult may be falsely increased. Sodium [Moles/Vol] 141 mmol/L 136-145 [facility] Laboratory - Chemistry and C hemistry - challengeOrdered By: Nathanael Rojas on 11-15-2022 CO2 [Moles/Vol] 23.0 mmol/L 21.0-32.0 [facility] Urea nitrogen/Creatinine [Mass ratio] 28.7 mg/mg 10-20 [facility] No Panel InformationOrdered By: Nathanael Rojas on 11-15-2022 Estimated GFR (MDRD) Amer 86 mL/min >60 [facility] Comment on above: GFR Calc Estimated GFR (MDRD) Non-Af Amer 71 mL/min >60 [facility] Comment on above: Non- GFR Calc Serum or plasma calcium jonathan urement (mass/volume)Ordered By: Nathanael Rojas on 11-15-2022 Calcium [Mass/Vol] 9.6 mg/dL 8.5-10.1 [facility] Serum or plasma creatinine m easurement (mass/volume)Ordered By: Nathanael Rojas on 11-15-2022 Creatinine [Mass/Vol] 1.08 mg/dL 0.70-1.30 [facility] Comment on above: The validity of the calculated GFR & GFRAA in patients over 70 years has not been determined. Clinical correlation is essential. Serum or plasma urea nitroge n measurement (mass/volume)Ordered By: Nathanael Rojas on 11-15-2022 Urea nitrogen [Mass/Vol] 31 mg/dL 7-18 [facility] Thin prep Papanicolaou smear with manual screeningOrdered By: Nathanael Rojas on 11-15-2022 Thin prep Papanicolaou smear with manual screening 9 -15 [facility] Whole blood hemoglobin A1c/t otal hemoglobin ratio (mass fraction)Ordered By: Nathanael Rojas on 11-15-2022 HbA1c (Bld) [Mass fraction] 6.5 % 3.8-5.6 [facility] Comment on above: Normal < 5.7 % Predi abetic 5.7 - 6.4 % Diabetic >or= 6.5 % Please note range changes. Shawn 11-10-2022 Potassium [Moles/Vol] 5.3 mmol/L High 3.5-5.1 [facility] ([place]) Comment on above: Performed By: #### K #### [address] [address] .Auto Diffon 11-09-2022 Basophil, Absolute 0.0 10 3/mcL Normal 0.0-0.2 [facility] ([place]) Comment on above: Performed By: #### C BC, ANEU, BMP, GFR, ADIFF #### [address] [address] Basophils/100 WBC (Bld) 0.3 % Normal 0.0-2.5 [facility] ([place]) Comment on above: Performed By: #### C BC, ANEU, BMP, GFR, ADIFF #### [address] [address] Eosinophil, Absolute 0.0 10 3/mcL Normal 0.0-0.4 [facility] ([place]) Comment on above: Performed By: #### C BC, ANEU, BMP, GFR, ADIFF #### [address] [address] Eosinophils/100 WBC (Bld) 0.5 % Normal 0.0-7.0 [facility] ([place]) Comment on above: Performed By: #### C BC, ANEU, BMP, GFR, ADIFF #### [address] [address] Lymphocyte, Absolute 1.4 10 3/mcL Normal 0.8-3.9 [facility] ([place]) Comment on above: Performed By: #### C BC, ANEU, BMP, GFR, ADIFF #### [address] [address] Lymphocytes/100 WBC (Bld) 16.4 % Normal 10.0-50.0 [facility] ([place]) Comment on above: Performed By: #### C BC, ANEU, BMP, GFR, ADIFF #### [address] [address] Monocyte, Absolute 0.5 10 3/mcL Normal 0.2-1.0 [facility] ([place]) Comment on above: Performed By: #### C BC, ANEU, BMP, GFR, ADIFF #### [address] [address] Monocytes/100 WBC (Bld) 5.9 % Normal 1.7-13.0 [facility] ([place]) Comment on above: Performed By: #### C BC, ANEU, BMP, GFR, ADIFF #### [address] [address] Neutrophils/100 WBC (Bld) 76.9 % Normal 37.0-80.0 [facility] ([place]) Comment on above: Performed By: #### C BC, ANEU, BMP, GFR, ADIFF #### [address] [address] .GFRon 11-09-2022 GFR 35 ml/min/1.73sqm Normal [facility] ([place]) Comment on above: Result Comment: GFR [...] C BC, ANEU, BMP, GFR, ADIFF #### [address] [address] GFR Non- 29 ml/min/1.73sqm Normal [facility] ([place]) Comment on above: Result Comment: GFR Population [...] C BC, ANEU, BMP, GFR, ADIFF #### [address] [address] .NEUABSon 11-09-2022 Neutrophil, Absolute 6.8 10 3/mcL High 2.9-6.2 [facility] ([place]) Comment on above: Performed By: #### C BC, ANEU, BMP, GFR, ADIFF #### [address] [address] BMPon 11-09-2022 BUN/Creatinine Ratio 20 ratio Normal 7-27 [facility] ([place]) Comment on above: Performed By: #### C BC, ANEU, BMP, GFR, ADIFF #### [address] [address] Calcium [Mass/Vol] 9.3 mg/dL Normal 8.4-10.2 [facility] ([place]) Comment on above: Performed By: #### C BC, ANEU, BMP, GFR, ADIFF #### [address] [address] Chloride [Moles/Vol] 103 mmol/L Normal 98-107 [facility] ([place]) Comment on above: Performed By: #### C BC, ANEU, BMP, GFR, ADIFF #### [address] [address] CO2 [Moles/Vol] 32 mmol/L High 23-31 [facility] ([place]) Comment on above: Performed By: #### C BC, ANEU, BMP, GFR, ADIFF #### [address] [address] Creatinine [Mass/Vol] 2.26 mg/dL High 0.70-1.30 [facility] ([place]) Comment on above: Performed By: #### C BC, ANEU, BMP, GFR, ADIFF #### [address] [address] Electrolyte Balance 7.0 mEq/L Normal 4.0-15.0 [facility] ([place]) Comment on above: Performed By: #### C BC, ANEU, BMP, GFR, ADIFF #### [address] [address] Glucose [Mass/Vol] 158 mg/dL High 83-110 [facility] ([place]) Comment on above: Performed By: #### C BC, ANEU, BMP, GFR, ADIFF #### [address] [address] Potassium [Moles/Vol] 6.1 mmol/L Critically abnormal 3.5-5.1 [facility] ([place]) Comment on above: Performed By: #### C BC, ANEU, BMP, GFR, ADIFF #### [address] [address] Sodium [Moles/Vol] 142 mmol/L Normal 136-145 [facility] ([place] Comment on above: Performed By: #### C BC, ANEU, BMP, GFR, ADIFF #### [address] [address] Urea nitrogen [Mass/Vol] 45 mg/dL High 7-18 [facility] ([place] Comment on above: Performed By: #### C BC, ANEU, BMP, GFR, ADIFF #### [address] [address] CBCon 11-09-2022 Erythrocyte distribution width (RBC) [Ratio] 12.9 % Normal 11.5-14.5 [facility] ([place] Comment on above: Performed By: #### C BC, ANEU, BMP, GFR, ADIFF #### [address] [address] Hematocrit (Bld) [Volume fraction] 36.5 % Low 42.0-52.0 [facility] ([place] Comment on above: Performed By: #### C BC, ANEU, BMP, GFR, ADIFF #### [address] [place], [place] [address] Hgb 12.3 G/dL Low 14.0-18.0 [facility] ([place] Comment on above: Performed By: #### C BC, ANEU, BMP, GFR, ADIFF #### [address] [address] MCH (RBC) [Entitic mass] 31.7 pg High 27.0-31.2 [facility] ([place] Comment on above: Performed By: #### C BC, ANEU, BMP, GFR, ADIFF #### [address] [address] MCHC 33.8 G/dL Normal 31.8-35.4 [facility] ([place] Comment on above: Performed By: #### C BC, ANEU, BMP, GFR, ADIFF #### [address] [address] MCV (RBC) [Entitic vol] 93.9 fL Normal 80.0-94.0 [facility] ([place]) Comment on above: Performed By: #### C BC, ANEU, BMP, GFR, ADIFF #### [address] [address] Platelet 218 10 3/mcL Normal 130-400 [facility] ([place] Comment on above: Performed By: #### C BC, ANEU, BMP, GFR, ADIFF #### [address] [address] Platelet mean volume (Bld) [Entitic vol] 8.9 fL Normal 7.4-10.4 [facility] ([place] Comment on above: Performed By: #### C BC, ANEU, BMP, GFR, ADIFF #### [address] [address] RBC 3.89 10 6/mcL Low 4.04-6.13 [facility] ([place] Comment on above: Performed By: #### C BC, ANEU, BMP, GFR, ADIFF #### [address] [place], [place] [address] WBC 8.8 10 3/mcL Normal 4.6-10.8 [facility] ([place] Comment on above: Performed By: #### C BC, ANEU, BMP, GFR, ADIFF #### [address] [place], [place] [address] Basophil percentageOrdered B y: Dr. Rojas on 04-12-2022 Basophil percentage < 0.9 mg/dL 0.70-1.30 [facility] No Panel InformationOrdered By: Dr. Rojas on 04-12-2022 Bedside Estimated GFR (eGFR) > 60.0000 mL/min >60 [facility] ECG 12 Leadon 03-16-2022 Atrial Rate [facility] P [place] [facility] P-R Interval [facility] Q-T Interval [facility] Q-T Interval (corrected) [facility] QRS Duration [facility] QTC Calculation (Bezet) [facility] [place] [facility] T [place] [facility] Vent[facility] POC Glucose by reagent strip (Finger Stick)on 03-16-2022 Glucose [Mass/Vol] 176 mg/dL Abnormal 65 - 99 mg/dL [facility] Interpretation and review of laboratory results Abnormal [facility] No Panel Informationon 11-04 Prostate Specific Antigen Screen 3.81 ng/mL 0.00-4.00 [facility] Work Phone: Comment on above: This test was perfor med using the TPSA assay method for the[employer] chemistry system. Values obtained with differentassay methods cannot be used interchangably.When changing PSA assays in the course of monitoring apatient, additional sequential testing should be carriedout to confirm baseline values. No Panel Informationon 09-09 [facility] Clinical Summary: HMSPatient IDon 01-04-2019 OOP [facility] Work Phone: Clinical Lists Update: Prelo ad Extendedon 01-03-2019 Tobacco smoking status NHIS Tobacco smoking status NHIS [facility] Work Phone: Clinical Summary: Scanned Jb story Summaryon 01-03-2019 cause of , father colon cancer [facility] Work Phone: cause of , mother brain cancer [facility] Work Phone: comments about allergies amoxicillin [facility] Work Phone: data entered by patient, alcohol (ethanol or ETOH) use No [facility] Work Phone: Data entered by patient, allergy list PenicillinPlant pollens (Hay Fever)I don't have any Food Allergies [facility] Work Phone: data entered by patient, drug (of abuse) use No [facility] Work Phone: data entered by patient, Employer Name retired [facility] Work Phone: data entered by patient, exercise history No [facility] Work Phone: data entered by patient, father's medical history Cancer [facility] Work Phone: Data entered by patient, history of past surgeries Cervical spine discectomyCervical spine fusionTonsillectomy [facility] Work Phone: Data entered by patient, medication list metformin hcl-1000 mg.-one-two times dailydoxazosin mesylate-4 mg.-one-once dailylosartan potassium-25 mg.-one-once dailyIC Cyclobenzaprine-10 mg.-one-up to 3 times daily as neededsimvastatin-10 mg.-one-once dailyhydrocodone bitartrate and acetaminophen getotfi-7-990 mg.-one-up to 4 times daily as neededpropranolol ER-120 mg.-one-once dailybactrim-160 mg.-one-every 12 hrs. for seven dayslocoid lipocream-0.1% hydrocodone qqcyjvdd-dkjhsn-vmj times daily as needednystatin-100,000 Units FCI ibffk-mkqvq-spmju liberally-two times daily as neededcentrum kkslia-ttqki-xgnjhao-on e-one time dailyomega 3 fish oil-600 mgs.-one-two times dailybayer back and body-500 mgs.-two-up to four times daily as neededbenedryl-25 mgs.-one or two-up to six times daily as neededeye drops-Nephazoline HCI (0.93854%) Pneniramine maleate (0.315%)-one or two drops-up to four times daily as needed [facility] Work Phone: data entered by patient, mother's medical history Cancer [facility] Work Phone: data entered by patient, past medical history Diabetes - non-insulin dependentObesity [facility] Work Phone: data entered by patient, social history, current smoker never smoker [facility] Work Phone: data entered by patient, social history, marital status [facility] Work Phone: father of patient is alive or [facility] Work Phone: Housing Type: apartment, house, skilled nursing, trailer, none house [facility] Work Phone: housing unit size (asthma environmental history, housing) (from single family to don't know) 3 floors [facility] Work Phone: medical history of patient's brother(s) My brother's health history is unknown [facility] Work Phone: medical history of patient's sister MelanomaObesity [facility] Work Phone: mother of patient is alive or [facility] Work Phone: Number of dependent children No [facility] Work Phone: Web entered surgical history comments nathanael removed from neck at 6-7 years of age, Urolift procedure on 06/02/2017, treatments for kidney stones, colonoscopies, minor surgery for cyst removal, one squamus cell carcinoma removed [facility] Work Phone: Vital Signs Date Time Vital Sign Value Performing Clinician Facility 11-20-2024 16:30-0400 Body temperature 97 [degF] Dr. Nathanael Rojas DO Work Phone: [facility] 11-20-2024 16:30-0400 Diastolic blood pressure 67 mm[Hg] Dr. Nathanael Rojas DO Work Phone: [facility] 11-20-2024 16:30-0400 Heart rate 60 /min Dr. Nathanael Rojas DO Work Phone: [facility] 11-20-2024 16:30-0400 Respiratory rate 16 /min Dr. Nathanael Rojas DO Work Phone: [facility] 11-20-2024 16:30-0400 SaO2% (BldA) [Mass fraction] 94 % Dr. Nathanael Rojas DO Work Phone: [facility] 11-20-2024 16:30-0400 Systolic blood pressure 146 mm[Hg] Dr. Nathanael Rojas DO Work Phone: [facility] 11-20-2024 16:15-0400 Inhaled oxygen flow rate 2 L/min Dr. Nathanael Rojas DO Work Phone: [facility] 11-20-2024 13:01-0400 Body height 170.[address] Nathanael Rojas DO Work Phone: [facility] 11-20-2024 13:01-0400 Body mass index (BMI) [Ratio] 31.7 kg/m2 Dr. Nathanael Rojas DO Work Phone: [facility] 11-20-2024 13:01-0400 Body weight [address] Nathanael Rojas DO Work Phone: [facility] 09-06-2024 10:30-0400 Diastolic blood pressure 76 mm[Hg] Minh Gerber MD Work Phone: [facility] 09-06-2024 10:30-0400 Heart rate 70 /min Minh Gerber MD Work Phone: [facility] 09-06-2024 10:30-0400 Respiratory rate 16 /min Minh Gerber MD Work Phone: [facility] 09-06-2024 10:30-0400 SaO2% (BldA) [Mass fraction] 95 % Minh Gerber MD Work Phone: [facility] 09-06-2024 10:30-0400 Systolic blood pressure 157 mm[Hg] Minh Gerber MD Work Phone: [facility] 09-06-2024 09:21-0400 Body mass index (BMI) [Ratio] 34.37 kg/m2 Minh Gerber MD Work Phone: [facility] 09-06-2024 09:21-0400 Body temperature 97.39 [degF] Minh Gerber MD Work Phone: [facility] 09-06-2024 09:21-0400 Body weight 96.6 kg Minh Gerber MD Work Phone: [facility] 08-22-2024 14:31-0400 Body height 170.[address] Nathanael Rojas DO Work Phone: [facility] 08-22-2024 14:31-0400 Body mass index (BMI) [Ratio] 33.3 kg/m2 Dr. Nathanael Rojas DO Work Phone: [facility] 08-22-2024 14:31-0400 Body weight 96.[address] Nathanael Rojas DO Work Phone: [facility] 08-12-2024 14:16-0400 Body height 167.6 cm Karly Hendersonir INFERTILITY NURSE.COUNT TEAM MEMBER Work Phone: [facility] 08-12-2024 14:16-0400 Body mass index (BMI) [Ratio] 34.38 kg/m2 Karly Jenny INFERTILITY NURSE.COUNT TEAM MEMBER Work Phone: [facility] 08-12-2024 14:16-0400 Body weight 96.62 kg Karly Hendersonir INFERTILITY NURSE.COUNT TEAM MEMBER Work Phone: [facility] 08-12-2024 14:16-0400 Diastolic blood pressure 79 mm[Hg] Karly Jenny INFERTILITY NURSE.COUNT TEAM MEMBER Work Phone: [facility] 08-12-2024 14:16-0400 Heart rate 82 /min Karly Hendersonir INFERTILITY NURSE.COUNT TEAM MEMBER Work Phone: [facility] 08-12-2024 14:16-0400 SaO2% (BldA) [Mass fraction] 98 % Karly Hendersonir INFERTILITY NURSE.COUNT TEAM MEMBER Work Phone: [facility] 08-12-2024 14:16-0400 Systolic blood pressure 152 mm[Hg] Karly Jenny INFERTILITY NURSE.COUNT TEAM MEMBER Work Phone: [facility] 07-11-2024 11:53-0400 Body temperature 98.1 [degF] Dr. Nathanael Rojas DO Work Phone: [facility] 07-11-2024 11:53-0400 Diastolic blood pressure 77 mm[Hg] Dr. Nathanael Rojas DO Work Phone: [facility] 07-11-2024 11:53-0400 Heart rate 79 /min Dr. Nathanael Rojas DO Work Phone: [facility] 07-11-2024 11:53-0400 Respiratory rate 18 /min Dr. Nathanael Rojas DO Work Phone: [facility] 07-11-2024 11:53-0400 SaO2% (BldA) [Mass fraction] 95 % Dr. Nathanael Rojas DO Work Phone: [facility] 07-11-2024 11:53-0400 Systolic blood pressure 156 mm[Hg] Dr. Nathanael Rojas DO Work Phone: [facility] 07-10-2024 16:05-0400 Inhaled oxygen flow rate 2 L/min Dr. Nathanael Rojas DO Work Phone: [facility] 07-10-2024 13:51-0400 Body height 170.[address] Nathanael Rojas DO Work Phone: [facility] 07-10-2024 13:51-0400 Body mass index (BMI) [Ratio] 34.5 kg/m2 Dr. Nathanael Rojas DO Work Phone: [facility] 07-10-2024 13:51-0400 Body weight [address] Nathanael Rojas DO Work Phone: [facility] 07-04-2024 13:32-0400 Body mass index (BMI) [Ratio] 35.2 kg/m2 Dr. Nathanael Rojas DO Work Phone: [facility] 07-04-2024 13:32-0400 Body weight 98.[address] Nathanael Rojas DO Work Phone: [facility] 04-09-2024 12:56-0500 Body mass index (BMI) [Ratio] 34.7 kg/m2 Dr. Nathanael Rojas DO Work Phone: [facility] 04-09-2024 12:56-0500 Body weight 97.[address] Nathanael Rojas DO Work Phone: [facility] 01-02-2023 16:42-0400 Diastolic blood pressure 66 mm[Hg] [facility] 01-02-2023 16:42-0400 Heart rate 74 /min [facility] 01-02-2023 16:42-0400 SaO2% (BldA) [Mass fraction] 95 % [facility] 01-02-2023 16:42-0400 Systolic blood pressure 142 mm[Hg] [facility] 01-02-2023 13:02-0400 Body height 167.64 cm [facility] 01-02-2023 13:02-0400 Body mass index (BMI) [Ratio] 34.3 kg/m2 [facility] 01-02-2023 13:02-0400 Body temperature 97.6 [degF] [facility] 01-02-2023 13:02-0400 Body weight 96.6 kg [facility] 01-02-2023 13:02-0400 Respiratory rate 21 /min [facility] 12-12-2022 21:19-0400 Heart rate 82 /min [facility] 12-12-2022 21:19-0400 Respiratory rate 20 /min [facility] 12-12-2022 21:07-0400 Diastolic blood pressure 89 mm[Hg] [facility] 12-12-2022 21:07-0400 SaO2% (BldA) [Mass fraction] 93 % [facility] 12-12-2022 21:07-0400 Systolic blood pressure 157 mm[Hg] [facility] 12-12-2022 19:08-0400 Body height 167.64 cm [facility] 12-12-2022 19:08-0400 Body mass index (BMI) [Ratio] 35 kg/m2 [facility] 12-12-2022 19:08-0400 Body temperature 96.8 [degF] [facility] 12-12-2022 19:08-0400 Body weight 98.5 kg [facility] 12-09-2022 10:08-0400 SaO2% (BldA) [Mass fraction] 97 % [facility] 12-09-2022 10:00-0400 Body temperature 97.5 [degF] [facility] 12-09-2022 10:00-0400 Diastolic blood pressure 62 mm[Hg] [facility] 12-09-2022 10:00-0400 Heart rate 60 /min [facility] 12-09-2022 10:00-0400 Inhaled oxygen flow rate 2 L/min [facility] 12-09-2022 10:00-0400 Respiratory rate 16 /min [facility] 12-09-2022 10:00-0400 Systolic blood pressure 147 mm[Hg] [facility] 12-09-2022 06:21-0400 Body height 167.64 cm [facility] 12-09-2022 06:21-0400 Body mass index (BMI) [Ratio] 34.2 kg/m2 [facility] 12-09-2022 06:21-0400 Body weight 96.3 kg [facility] 03-16-2022 09:13-0500 Diastolic blood pressure 84 mm[Hg] Lucas Aaron DO Work Phone: [facility] 03-16-2022 09:13-0500 Systolic blood pressure 145 mm[Hg] Lucas Aaron DO Work Phone: [facility] 03-16-2022 09:06-0500 Body height 167.6 cm Lucas Aaron DO Work Phone: [facility] 03-16-2022 09:06-0500 Body mass index (BMI) [Ratio] 33.57 kg/m2 Lucas Aaron DO Work Phone: [facility] 03-16-2022 09:06-0500 Body temperature 98.2 [degF] Lucas Aaron DO Work Phone: [facility] 03-16-2022 09:06-0500 Body weight 94.35 kg Lucas Aaron DO Work Phone: [facility] 03-16-2022 09:06-0500 Heart rate 70 /min Lucas Aaron DO Work Phone: [facility] 03-16-2022 09:06-0500 Respiratory rate 16 /min Lucas Aaron DO Work Phone: [facility] 03-16-2022 09:06-0500 SaO2% (BldA) [Mass fraction] 98 % Lucas Aaron DO Work Phone: [facility] 09-27-2021 14:07-0400 Diastolic blood pressure 82 mm[Hg] Jerri [place] PA-C Work Phone: [facility] 09-27-2021 14:07-0400 Systolic blood pressure 152 mm[Hg] Jerri [place] PA-C Work Phone: [facility] 09-27-2021 13:42-0400 Body height 167.6 cm Jerri Sarath PA-C Work Phone: [facility] 09-27-2021 13:42-0400 Body temperature 97.7 [degF] Jerri [place] PA-C Work Phone: [facility] 09-27-2021 13:42-0400 Body weight 98.88 kg Jerri [place] PA-C Work Phone: [facility] 09-27-2021 13:42-0400 Heart rate 73 /min Jerri Sarath PA-C Work Phone: [facility] 09-27-2021 13:42-0400 SaO2% (BldA) [Mass fraction] 98 % Jerri Sarath PA-C Work Phone: [facility] 09-09-2021 09:25-0400 Diastolic blood pressure 58 mm[Hg] Minh Gerber MD Work Phone: [facility] 09-09-2021 09:25-0400 Heart rate 61 /min Minh Gerber MD Work Phone: [facility] 09-09-2021 09:25-0400 SaO2% (BldA) [Mass fraction] 96 % Minh Gerber MD Work Phone: [facility] 09-09-2021 09:25-0400 Systolic blood pressure 166 mm[Hg] Minh Gerber MD Work Phone: [facility] 09-09-2021 09:11-0400 Respiratory rate 16 /min Minh Gerber MD Work Phone: [facility] 09-09-2021 07:33-0400 Body temperature 97.11 [degF] Minh Gerber MD Work Phone: [facility] 08-03-2021 13:48-0400 Body height 167.6 cm Jerri [place] PA-C Work Phone: [facility] 08-03-2021 13:48-0400 Body temperature 97.39 [degF] Jerri Sarath PA-C Work Phone: [facility] 08-03-2021 13:48-0400 Body weight 98.88 kg Jerri Sarath PA-C Work Phone: [facility] 08-03-2021 13:48-0400 Diastolic blood pressure 84 mm[Hg] Jerri Sarath PA-C Work Phone: [facility] 08-03-2021 13:48-0400 Heart rate 75 /min Jerri Sarath PA-C Work Phone: [facility] 08-03-2021 13:48-0400 SaO2% (BldA) [Mass fraction] 96 % Jerri [place] PA-C Work Phone: [facility] 08-03-2021 13:48-0400 Systolic blood pressure 123 mm[Hg] Jerri [place] PA-C Work Phone: [facility] NEGATED: Highlighted [id number] 09:51-0400 BMI (Body Mass Index) 36.61 kg/m2 Carla Lester AT [facility] Work Phone: NEGATED: Highlighted [id number] 09:51-0400 Body weight 102.51 kg Carla Cruzer AT [facility] Work Phone: NEGATED: Highlighted [id number] 09:51-0400 Body weight 103 kg Carla Trevon AT [facility] Work Phone: NEGATED: Highlighted [id number] 09:51-0400 BP Diastolic 78 mm[Hg] Carla Cruzer AT [facility] Work Phone: NEGATED: Highlighted [id number] 09:51-0400 BP Systolic 135 mm[Hg] Carla Lester AT [facility] Work Phone: NEGATED: Highlighted [id number] Height 167.64 cm Carla Lester AT [facility] Work Phone: NEGATED: Highlighted [id number] 09:51-0400 Height 168 cm Carla Lester AT [facility] Work Phone: NEGATED: Highlighted [id number] 09:51-0400 Pulse (Heart Rate) 71 /min Carla Lester AT [facility] Work Phone: Encounters Encounter Date Encounter Type Care Provider Facility Start: 01-30-2025 End: 01-30-2025 ambulatory [facility] Facility:[facility] Start: 01-23-2025 End: 01-23-2025 ambulatory [facility] Facility:[facility] Start: 12-18-2024 ambulatory [facility] Facility: [facility] Start: 11-25-2024 ambulatory [facility] Facility: [facility] Start: 11-20-2024 End: 11-20-2024 Admission to same day surgery center Dr. Duke Trinh MD [facility] Start: 11-20-2024 End: 11-20-[address] Nathanael Rojas DO Work Phone: -[facility] Start: 11-11-2024 End: 11-11-[address] Nathanael Rojas DO Work Phone: -Cat Scan [facility] Start: 11-11-2024 End: 11-11-2024 Patient encounter procedure Esthela Leo -Cat Scan [facility] Work Phone: Start: 11-11-2024 End: 11-11-2024 ambulatory [facility] Facility:[facility] Start: 10-18-2024 End: 10-18-[address] Tha Mcghee MD -[facility] Start: 10-18-2024 End: 10-18-[address] Nathanael Rojas DO Work Phone: -[facility] Start: 09-13-2024 End: 09-13-2024 Patient encounter procedure Karly Alvarado APRN.COUNT TEAM MEMBER Work Phone: General Surgery Comment on above: Adenomatous polyp (P rimary Dx) Start: 09-13-2024 End: 09-13-2024 ambulatory [place] Facility:[facility] Start: 09-12-2024 End: 11-12-2024 Follow-up encounter Karly Alvarado APRN.COUNT TEAM MEMBER Work Phone: General Surgery Start: 09-06-2024 ambulatory [facility] y:[facility] Start: 09-06-2024 End: 09-06-2024 Subsequent hospital visit by physician Minh Gerber MD Work Phone: Ambulatory Surgery Comment on above: Screen for colon can cer [Z12.11] Start: 08-22-2024 End: 08-22-[address] Tha Mcghee MD -[facility] Start: 08-22-2024 End: 08-22-[address] Nathanael Rojas DO Work Phone: [facility] Work Phone: Start: 08-12-2024 End: 08-12-2024 Patient encounter procedure Karly Alvarado APRN.COUNT TE[employer] MEMBER Work Phone: General Surgery Comment on above: Screen for colon can cer (Primary Dx); History of colonic polyps; Family history of colon cancer Start: 08-12-2024 End: 08-12-2024 ambulatory [place] Facility:[facility] Start: 07-26-2024 Encounter for other preprocedural examination Alexandre Yip [facility] Start: 07-25-2024 End: 07-25-[address] Alexandre Yip MD -[facility] Work Phone: Start: 07-25-2024 End: 07-25-2024 ambulatory [facility] Facility:[facility] Start: 07-11-2024 Non-patient / Non-visit Florina KYLE -[facility] Start: 07-11-2024 Non-patient / Non-visit Dr. Morro Andres MD -[facility] Work Phone: Start: 07-10-2024 Non-patient / Non-visit Dr. Venessa Neves MD -[facility] Work Phone: Start: 07-10-2024 End: 07-11-2024 ambulatory [facility] Facility:[facility] Start: 07-10-2024 End: 07-11-2024 Evaluation and management of inpatient Dr. Alexandre Yip MD -[facility] Work Phone: Start: 07-10-2024 End: 07-11-[address] Nathanael Rojas DO Work Phone: [facility] Work Phone: Start: 07-10-2024 ambulatory Alexandre Yip Facility:[facility] Start: 07-10-2024 Non-patient / Non-visit Dr. Alexandre bazan MD -[facility] Start: 07-04-2024 End: 07-04-[address] Alexandre Yip MD -[facility] Work Phone: Start: 07-04-2024 End: 07-04-2024 ambulatory [facility] Facility:[facility] Start: 06-27-2024 End: 06-27-2024 ambulatory [facility] Facility:[facility] Start: 06-27-2024 End: 06-27-2024 Non-patient / Non-visit Dr. Tha Mcghee MD -[facility] Work Phone: Start: 05-17-2024 End: 05-17-[address] Alexandre Yip MD -[facility] Work Phone: Start: 05-17-2024 End: 05-17-2024 ambulatory [facility] Start: 04-09-2024 End: 04-09-[address] Alexandre Yip MD -[facility] Work Phone: Start: 04-09-2024 End: 04-09-2024 ambulatory [facility] Start: 02-15-2024 ambulatory [facility] Facility: [facility] Start: 08-07-2023 End: 08-07-2023 ambulatory [facility] Work Phone: Start: 08-07-2023 End: 08-07-2023 Patient encounter procedure [facility]-Laboratory Work Phone: Start: 06-23-2023 End: 06-23-2023 ambulatory [facility] Work Phone: Start: 06-23-2023 End: 06-23-2023 Patient encounter procedure [facility]-Cat Scan, [facility] Work Phone: Start: 01-02-2023 End: 01-02-2023 Emergency department patient visit [facility]-Emergency Department Work Phone: Start: 12-12-2022 End: 12-12-2022 Emergency department patient visit [facility]Emergency Department Work Phone: Start: 12-09-2022 End: 12-09-2022 Admission to same day surgery center [facility]-Surgical Day Care Start: 12-09-2022 End: 12-09-2022 ambulatory [facility] Work Phone: Start: 11-30-2022 End: 11-30-2022 ambulatory [facility] Work Phone: Start: 11-30-2022 End: 11-30-2022 Patient encounter procedure [facility]-Laboratory Work Phone: Start: 11-15-2022 End: 11-15-2022 ambulatory [facility] Work Phone: Start: 11-15-2022 End: 11-15-2022 Patient encounter procedure [facility]-Eli Al [facility] Start: 11-10-2022 End: 11-11-[address] DUKE TRINH MD Facility:B Start: 11-09-2022 End: 11-10-[address] DUKE TIRNH MD Facility:B Start: 10-31-2022 End: 10-31-2022 ambulatory [facility] Work Phone: Start: 10-31-2022 End: 10-31-2022 Patient encounter procedure [facility]-Radiology, [facility] Work Phone: Start: 09-27-2022 End: 09-27-2022 ambulatory [facility] Work Phone: Start: 09-27-2022 End: 09-27-2022 Patient encounter procedure [facility]-MRI - [facility] Start: 04-12-2022 End: 04-12-2022 ambulatory [facility] Work Phone: Start: 04-12-2022 End: 04-12-2022 Patient encounter procedure [facility]-MRI - [facility] Start: 03-16-2022 End: 03-16-2022 ambulatory PHYSICIAN NO [facility] Amb[facility] Start: 03-16-2022 End: 03-16-2022 Encounter for other preprocedural examination LUCAS AARON [facility] Ambulatory Start: 03-16-2022 End: 03-16-2022 Office outpatient new 30 minutes Lucas Aaron DO Work Phone: [facility] Eye Pre admision Testing Comment on above: Pre-op examination ( Primary Dx); Myogenic ptosis of bilateral eyelids; Essential hypertension; Mixed hyperlipidemia; Type 2 diabetes mellitus with other ophthalmic complication, without long-term current use of insulin (HCC) Start: 03-16-2022 End: 03-16-2022 Preprocedural examination done Lucas Aaron DO Work Phone: [facility] Pre [facility]ision [facility] Start: 03-07-2022 End: 03-07-2022 Patient encounter procedure [facility]-Cat Scan, [facility] Start: 02-08-2022 End: 02-08-2022 ambulatory [facility] Work Phone: Start: 02-08-2022 End: 02-08-2022 Discharged Recurring [facility]-Physical Therapy Start: 11-04-2021 End: 11-04-2021 Patient encounter procedure [facility]-Laboratory Start: 10-01-2021 End: 10-01-2021 Patient encounter procedure [facility]-Cardiovascula r Services Start: 09-27-2021 End: 09-27-2021 Patient encounter procedure Jerri Clemens [employer] Work Phone: General Surgery Comment on above: Tubular adenoma (Angelina joann Dx); Family history of colon cancer; History of colonic polyps Start: 09-09-2021 End: 09-09-2021 Subsequent hospital visit by physician Minh Gerber MD Work Phone: Ambulatory Surgery Comment on above: History of colonic p olyps [Z86.010] Start: 08-03-2021 Telephone encounter Jerri kirk [employer] Work Phone: General Surgery Comment on above: 08-19-2021 [facility] Start: 08-03-2021 End: 08-03-2021 Patient encounter procedure Jerri [employer] Work Phone: General Surgery Comment on above: Encounter for screen ing for malignant neoplasm of colon (Primary Dx); Personal history of colonic polyps; Family history of colon cancer Start: 05-21-2019 Patient encounter status [facility] Start: 01-04-2019 End: 01-04-2019 Pt evaluation Ra Peterson MD Work Phone: [facility] Work Phone: Procedures [...] w /collj spec when pfrmd Karly Alvarado INFERTILITY NURSE.COUNT TEAM MEMBER Work Phone: Start: 09-06-2024 Colonoscopy Minh stratton MD Work Phone: Start: 08-22-2024 X-ray of cervical spine Dr. Nathanael Rojas DO Work Phone: Start: 07-25-2024 X-ray of cervical spine Dr. Nathanael Rojas DO Work Phone: Start: 07-11-[address] Nathanael Rojas DO Work Phone: Start: 07-11-2024 X-ray of cervical spine Dr. Nathanael Rjoas DO Work Phone: Start: 07-10-2024 Cervical arthrodesis by anterior technique Dr. Nathanael Rjoas DO Work Phone: Start: 07-10-2024 Fluoroscopic guidance [...] HAVtotal antibody results to IgM (e.g., panel #[id number] HAVAntibody w/ Rfx).Performed at: [address] [id number] Director: Kamlesh Cleveland PhD, Phone: [phone] Start: 06-27-2024 Hepatitis C antibody measurement Dr. [...] HCV Quant by PCR testing - HCVPCR #[id number] Non Reactive: < 0.8 Equivocal: >/= 0.8 [...] w/le ast 12 lds w/i&r Lucas Aaron [employer] Work Phone: Start: 03-16-2022 Gluc bld gluc mntr d ev cleared fda spec home use Lucas Aaron [employer] Work Phone: Start: 03-07-2022 CT of face [...] Screening for malign ant neoplasm of colon [facility] Start: 09-06-2029 Screening for malign ant neoplasm of colon [facility] Start: 09-07-2027 Screening for malign ant neoplasm of colon [facility] Start: 09-09-2026 Colonoscopy COLONOSCOPY [facility] Start: 09-09-2026 COLORECTAL CANCER SCREENING COLORECTAL CANCER SCREENING [facility] Start: 12-09-2024 Influenza vaccination Influenza Vacc ine (#1) [facility] Start: 11-20-2024 Taking patient vital signs [facility] Start: 11-20-2024 End: 11-20-2024 [facility] Start: 11-20-2024 Ambulation without limitation [facility] Start: 11-20-2024 Medication education [facility] Start: 11-20-2024 End: 11-20-2024 Patient discharge [facility] Start: 10-18-2024 X-ray of cervical spine Cerv Spine 2 or 3 Views [facility] Start: 10-18-2024 XR Cervical spine 2 or 3 Views [facility] Start: 09-26-2024 Covid-19 Vaccine ( season) Covid-19 Vaccine ( season) [facility] Start: 09-13-2024 End: 09-13-2024 Patient encounter procedure 09/13/2024 3:00 PM EDT Office Visit General Surgery [address] [place] [address] Karly Alvarado APRN.COUNT TEAM MEMBER [address] [place] [address] 09/06 Colonoscopy Follow Up General Surgery Comment on above: 09/06 Colonoscopy Fo llow Up Start: 09-09-2024 Colonoscopy COLONOSCOPY [facility] Start: 09-09-2024 COLORECTAL CANCER SCREENING COLORECTAL CANCER SCREENING [facility] Start: 09-09-2024 Screening for malign ant neoplasm of colon [facility] Start: 09-06-2024 End: 09-06-2024 Patient encounter procedure 09/06/2024 10:15 AM EDT Appointment Ambulatory Surgery [address] [place] [address] Minh Gerber MD [address] [place], [place] [address] COLONOSCOPY Ambulatory Surgery Comment on above: COLONOSCOPY Start: 08-22-2024 X-ray of cervical spine Cerv Spine 2 or 3 Views [facility] Start: 08-22-2024 XR Cervical spine 2 or 3 Views [facility] Start: 07-25-2024 Patient referral [facility] Work Phone: Start: 07-11-2024 Patient discharge [facility] Start: 07-11-2024 Catheterization of vein [facility] Start: 07-11-2024 Application of intermittent pneumatic compression device [facility] Start: 07-10-2024 [facility] Start: 07-10-2024 Following clinical pathway protocol [facility] Start: 07-10-2024 Allograft for spine surgery only structural SP BONE ALGRFT STRUCT ADD-ON [facility] Start: 07-10-2024 Anesthesia extensive spine & spinal cord ANESTH SPINE CORD SURGERY [facility] Start: 07-10-2024 Anterior instrumenta tion 2-3 vertebral segments INSERT SPINE FIXATION DEVICE [facility] Start: 07-10-2024 Arthrd ant interbody decompress cervical belw c2 ARTHRD ANT NTRBDY CERVICAL [facility] Start: 07-10-2024 Arthrd ant interdy c ervcl belw c2 ea addl ntrspc ARTHRD ANT NTRBD CERVICAL EA [facility] Start: 07-10-2024 Following clinical pathway protocol [facility] Start: 07-10-2024 Application of device W [facility] Start: 07-10-2024 Consultation [facility] Start: 07-10-2024 Admission procedure [facility] Start: 07-10-2024 Assessment of risk o f venous thromboembolism [facility] Start: 07-10-2024 Following clinical pathway protocol [facility] Start: 07-10-2024 Incentive spirometry [facility] Start: 07-10-2024 Introduction of urin macrian catheter [facility] Start: 07-10-2024 Measuring intake and output [facility] Start: 07-10-2024 Neurovascular assessment [facility] Start: 07-10-2024 Oxygen therapy [facility] Start: 07-10-2024 Patient education [facility] Start: 07-10-2024 Provision of activit y privileges [facility] Start: 07-10-2024 Referral to occupati onal therapist [facility] Start: 07-10-2024 Referral to service [facility] Start: 07-10-2024 Taking patient vital signs [facility] Start: 07-10-2024 End: 07-10-2024 [facility] Start: 05-23-2024 Shingrix Vaccine (2 of 2) Carney grix Vaccine (2 of 2) [facility] Start: 04-10-2024 Advance Directive Discussion Advance Directive Discussion [facility] Start: 01-17-2023 Pneumococcal Vaccine : Age 65+ (2 - PCV) Pneumococcal Vaccine: Age 65+ (2 - PCV) [facility] Start: 01-09-2023 DIABETES SCREEN DIABETES SCREEN [facility] Start: 01-09-2023 Diabetes Screening Diabetes Screenin g [facility] Start: 01-02-2023 Bacteria identified in Urine by Culture Urine Culture [facility] Start: 01-02-2023 [facility] Start: 12-12-2022 [facility] Start: 12-12-2022 End: 12-12-2022 Blood culture [facility] Start: 12-12-2022 Bacteria identified in Blood by Culture Blood Culture [facility] Start: 12-12-2022 Bacteria identified in Urine by Culture Urine Culture [facility] Start: 12-09-2022 Sherwin lithotrp xtrcor p shock wave w/o water bath ANESTH KIDNEY STONE DESTRUCT [facility] Start: 12-09-2022 Cysto/uretero w/lithotripsy &indwell stent insrt CYSTO/URETERO W/LITHOTRIPSY [facility] Start: 12-09-2022 Patient discharge [facility] Start: 12-09-2022 Ambulation without limitation [facility] Start: 12-09-2022 Medical regimen orde rs management [facility] Start: 12-09-2022 Medication education [facility] Start: 12-09-2022 Taking patient vital signs [facility] Start: 12-09-2022 [facility] Start: 12-09-2021 Influenza vaccination INFLUENZ A (Season Ended) [facility] Start: 07-07-2021 COVID-19 VACCINE (4 - Booster for Moderna series) COVID-19 VACCINE (4 - Booster for Moderna series) [facility] Start: 04-10-2021 ADVANCE DIRECTIVE DISCUSSION ADVANCE DIRECTIVE DISCUSSION [facility] Start: 05-26-2019 Colonoscopy COLONOSCOPY [facility] Start: 05-26-2019 COLORECTAL CANCER SCREENING COLORECTAL CANCER SCREENING [facility] Start: 01-04-2019 End: 01-04-2019 Appointment Appointment [facility] Work Phone: Start: 11-09-2015 Medicare Annual Well ness Visit Medicare Annual Wellness Visit [facility] Start: 08-17-2015 Fall risk assessment Falls Risk Asse ssment [facility] Start: 08-17-2015 PNEUMOCOCCAL: 65+ (1 - PCV) PNEUMOCOCCAL: 65+ (1 - PCV) [facility] Start: 08-17-2015 PNEUMOVAX AGE 65 AND OVER WITH 5YR LOOKBACK (#1) PNEUMOVAX AGE 65 AND OVER WITH 5YR LOOKBACK (#1) [facility] Start: 2000 Administration of he rpes zoster vaccine Zoster Vaccines (1 of 2) [facility] Start: 2000 Screening for malign ant neoplasm of colon Flexible sigmoidoscopy [facility] Start: 2000 SHINGRIX VACCINE (1 of 2) CARNEY GRIX VACCINE (1 of 2) [facility] Start: 08-17-1995 COLOGUARD (FIT-DNA) COLOGUARD (FIT-D NA) [facility] Start: 08-17-[address] [facility] Start: 08-17-1995 FECAL OCCULT BLOOD FECAL OCCULT BLOO D [facility] Start: 08-17-1995 Screening for malign ant neoplasm of colon [facility] Start: 08-17-1995 SIGMOIDOSCOPY SIGMOIDOSCOPY Cle[facility] Start: 1985 Lipid panel [facility] Start: 1985 LIPID SCREEN LIPID SCREEN [facility] Start: 1969 Urine microalbumin profile [facility] Start: 1968 Anxiety Screening Anxiety Screening [facility] Start: 1968 Depression Screening Depression Scre ening [facility] Start: 1968 HEPATITIS C SCREENING HEPATITIS C [facility] Start: 1968 Hepatitis C screening Hepatitis C Sc [facility] Start: 1962 Adult depression screening assessment [facility] Start: 1953 History and physical examination, annual for health maintenance Wellness Visit [facility] Start: 1950 Prostate specific an tigen measurement PSA Level [facility] Start: 1950 Screening for malign ant neoplasm of colon [facility] Start: 1950 Tetanus vaccination Tetanus: Every 1 0yrs [facility] Patient Education [facility] Work Phone: Patient referral [facility] Work Phone: End: 08-12-2025 Screening colonoscopy COLONOSCOPY SCREENING Endoscopy Routine Screen for colon cancer History of colonic polyps 1 Occurrences starting 08/12/2024 until 08/12/2025 [facility] Work Phone: Comment on above: 1 Occurrences starti ng 08/12/2024 until 08/12/2025 SURGICAL PATHOLOGY [facility] Work Phone: Comment on above: Release Upon Orderin g for 1 Occurrences starting 09/09/2021, 1 completed Tissue Pathology bio psy report [facility] Work Phone: Comment on above: Release Upon Orderin g for 1 Occurrences starting 09/06/2024, 1 completed XR Abdomen Single view [facility] Immunizations Immunization Date Immunization Notes Care Provider Matthew arizmendi 03-11-2024 influenza virus vaccine, unspecified formulation Karly Alvarado APRN.COUNT TEAM MEMBER Work Phone: [facility] 06-24-2020 Covid (Moderna) [facility] 05-27-2020 Covid (Moderna) [facility] 02-08-2019 Influenza virus vaccine W [facility] Payers Date Payer Category Payer Self-pay [id number] 2022 Medicare [id number] 2021 Unknown [employer]MO [employer] [place] [employer] [id number] 2021-Present [phone] [address] [place] [address] [id number] 2019 Private Health Insurance MMO MEDICARE SUPPLEMENT [id number] 2019 Unknown MMO MMO MEDICARE SUPPLEMENT [id number] 2019-Present [phone] [address] [place] [address] Indemnity [id number] 2019 Unknown [id number] 2016 Unknown [id number] 2015 Medicare MEDICARE MEDICAR E A AND B [id number] 2015-Present [phone] [facility] [address] [place] [address] Medicare [id number] 2015 Medicare [id number]. [id number] 2006 Medicare [id number] 1950 Unknown [id number] 2.16.840.1.570318.3.579.2. 903 1950 Unknown [id number] 2.16.840.1.700435.3.579.2. 627 1950 Unknown [id number] 2.16.840.1.484509.3.579.2. 627 Unknown [id number] 2.16.840.1.804601.3.579.2. 462 Unknown [id number] 2.16.840.1.727058.3.579.2. 462 Unknown [id number] 2.16.840.1.869327.3.579.2. 462 Unknown [id number] 2.16840.1.660306.3.579.2. 462 Unknown [id number] 2.16.840.1.543353.3.579.2. 462 Unknown [id number] 2.16.840.1.892426.3.579.2. 462 Unknown [id number] 2.16.840.1.277040.3.579.2. 462 Unknown [id number] 2.16.840.1.711987.3.579.2. 462 Unknown [id number] 2.16840.1.449688.3.579.2. 462 Unknown [id number] 2.16.840.1.563199.3.579.2. 462 Unknown [id number] 2.16.840.1.606225.3.579.2. 462 Unknown [id number] 2.16.840.1.903259.3.579.2. 462 Unknown [id number] 2.16.840.1.446161.3.579.2. 462 Unknown [id number] 2.16.840.1.307009.3.579.2. 462 Unknown [id number] 2.16.840.1.612141.3.579.2. 462 Unknown [id number] 2.16.840.1.810816.3.579.2. 462 Unknown [id number] 2.16.840.1.641795.3.579.2. 462 Unknown [id number] 2.16.840.1.877106.3.579.2. 462 Unknown [id number] 2.16.840.1.703090.3.579.2. 462 Unknown [id number] 2.16.840.1.000947.3.579.2. 462 Unknown [id number] 2.16.840.1.048321.3.579.2. 462 Unknown [id number] 2.16.840.1.718939.3.579.2. 462 Unknown [id number] 2.16.840.1.267748.3.579.2. 462 Unknown [id number] 2.16.840.1.000632.3.579.2. 462 Social History Date Type Detail Facility Start: 06-19-2019 End: 01-02-2023 Assertion Unknown if ever smoked [facility] Work Phone: Start: 05-09-2014 End: 11-14-2024 Tobacco smoking status NHIS Never smoked tobacco [facility] Start: 05-09-2014 End: 08-12-2024 Tobacco use and exposure User of smokeless tobacco [facility] History of tobacco use Snuff User [facility] History of tobacco use [facility] Start: 08-03-2021 Alcohol intake Current non-drinker of alcohol (finding) [facility] Start: 1950 Sex Assigned At Not on file [facility] Start: 07-24-2021 End: 03-16-2022 Exposure to SARS-CoV-2 (event) Not sure [facility] Start: 09-09-2021 End: 09-10-2024 Alcohol intake Current drinker of alcohol (finding) [facility] Start: 09-09-2021 History SDOH Alcohol Comment Occasionally [facility] Start: 06-08-2019 Spouse/ Significant Other [facility] Start: 06-19-2019 Chew [facility] Start: 1950 Sex Assigned At Male [facility] Start: 03-16-2022 Tobacco use and exposure Smokeless tobacco non-user [facility] Start: 03-16-2022 Alcohol intake Ex-drinker (finding) [facility] Start: 06-26-2024 Tobacco smoking status ILIS Smokes tobacco daily (finding) [facility] Start: 07-11-2024 Sex Male (finding) [facility] Start: 08-12-2024 End: 09-06-2024 History of Social function [facility] Start: 08-12-2024 End: 09-06-2024 Tobacco use panel [facility] National Score (1-10 0), lower number is lower risk 53 [facility] Start: 07-27-2021 Sexual orientation Heterosexual (finding) [facility] Medical Equipment Procedure Code Equipment Code [...] Result Facility 11-20-2024 Functional status Bathroom Privilege [facility] Work Phone: 07-11-2024 Functional status Chair [facility] Work Phone: 12-09-2022 Functional status Ambulates;Bath room Privilege [facility] Work Phone: 06-02-2014 Are you deaf, or do you have serious difficulty hearing No 06/02/2014 2:08 PM Monique Craig LPN No [facility] Work Phone: 06-02-2014 Are you blind, or do you have serious difficulty seeing, even when wearing glasses No 06/02/2014 2:08 PM Monique Craig LPN No [facility] 06-02-2014 Do you have serious difficulty walking or climbing stairs No 06/02/2014 2:08 PM Monique Craig LPN No [facility] 06-02-2014 Do you have difficul ty dressing or bathing No 06/02/2014 2:08 PM Monique Craig LPN No [facility] 06-02-2014 Because of a physica l, mental, or emotional condition, do you have difficulty doing errands alone such as visiting a physician's office or shopping No 06/02/2014 2:08 PM Monique Craig LPN No [facility] Mental Status Date Assessment Result Facility 11-20-2024 Cognitive function Level Of Cons ciousness Sedated [facility] Work Phone: 11-20-2024 Cognitive function Voice/Name [facility] Work Phone: 07-11-2024 Cognitive function Voice/Name [facility] Work Phone: 07-11-2024 Cognitive function Appropriate;Cooperativ e [facility] Work Phone: 01-02-2023 Cognitive function Level Of Cons ciousness Awake;Alert;Appropriate;Fol lows Commands [facility] Work Phone: 12-12-2022 Cognitive function Level Of Cons ciousness Awake;Alert;Appropriate [facility] Work Phone: 12-09-2022 Cognitive function Light Pain [facility] Work Phone: 06-02-2014 Because of a physica l, mental, or emotional condition, do you have serious difficulty concentrating, remembering, or making decisions No 06/02/2014 2:08 PM Monique Craig LPN No [facility] Clinical Notes 08-03-2021 to 11-20-2024 Note Date & Type Note Facility 11-20-2024 Consult note [facility] 11-20-2024 Discharge summary [facility] 11-20-2024 Consult note [facility] 11-20-2024 Procedure note [facility] 11-20-2024 Consult note Note Date/Time November 20, 2024 1:39pm [facility] Medical Records Department [address] [place] [address] Pre-Anesthesia Evaluation 11/20/24 1335 MR#: [id number] Acct: [id number] Name: TERESA RAINEY Rep #:[id number] 1 : 1950 74 From: Yang Reese PCP: Dr. Nathanael Rojas, DO Status:REG SDC Y Race: C Location: [place] [address] ASA Classification* ASA Classification ASA Classification: 2 [...] Insertion Stent Anesthesia History Anesthesia History - fowl blood tester: Anesthesia History - fowl blood tester Hx Hospitalization Yes: 08/02 CERVICAL FUSION 11/14/24 [...] take am of surgery PONV PONV - fowl blood tester: PONV - fowl blood tester Female No 11/14/24 11:02 HX of Motion [...] 11/20/24 13:01 Respiratory Assessment Respiratory Assessment - fowl blood tester: Respiratory Tract Infection Hx - fowl blood tester Hx Respiratory Tract Infection No 11/14/24 11:02 STOP Sleep Apnea STOP Sleep Apnea - fowl blood tester: STOP Sleep Apnea - fowl blood tester Hx Hypertension Yes 11/14/24 11:02 Hx Sleep [...] Tobacco Use History Tobacco Use History - fowl blood tester: Tobacco Use History - fowl blood tester Tobacco Use Smoking Status Never smoker 11/14/24 11:02 Hx Tobacco Use Yes 11/14/24 11:02 Years Smoking Packs Smoked per Day Smoking Cessation Date was within the last 15 years Hx Smoking Cessation Date Hx Smoking Cessation Counseling Hematologic Medial History Hematologic Hx - fowl blood tester: 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 Hx of Blood Transfusion No 11/14/24 11:02 [...] confused, unrespo /Reproduction History /Reproductive History - fowl blood tester: /Reproductive Hx- fowl blood tester Hx Now No 11/14/24 11:02 Gestational Age [...] 1 ea PO DAILY 05/20/1907/09 History naphazoline 0.92527 %-pheniramine 2 drp OP PRN PRN All [...] MD Cosigner Signature: Date CC: ~ Signed [facility] Work Phone: 1(630) 649-234108-13-2025 Radiology Diagnostic study note [facility] Imaging Services [address] [place], [place] [address] Abdomen Single View MR#: [id number] Acct: [id number] Name: TERESA RAINEY Rep #: [id number] 0 : 1950 M 74 From: Tyron Sprague MD PCP: Dr. Nathanael Rojas DO Status: [facility] Study:Abdomen Single View Date of Exam: 11/20/24 Exam# [id number] Ordering Dr: Alyssa Trinh MD PROCEDURE: ABDOMEN [...] renal or ureteral calcification seen. Reading Location: [id number] CC: Dr. Duke Trinh MD; Dr. Nathanael Rojas DO ~ Vegetable Packer: Signed [facility]08-13-2025 Consult note [facility] Medical Records Department [address] [place] [address] Pre-Anesthesia Evaluation 11/20/24 1335 MR#: [id number] Acct: [id number] Name: TERESA RAINEY Rep #:[id number] 1 : 1950 74 From: Yang Reese PCP: Dr. Nathanael Rojas, DO Status:REG SDC Y Race: C Location: [place] [address] ASA Classification* ASA Classification ASA Classification: 2 [...] Insertion Stent Anesthesia History Anesthesia History - fowl blood tester: Anesthesia History - fowl blood tester Hx Hospitalization Yes: 08/02 CERVICAL FUSION 11/14/24 [...] take am of surgery PONV PONV - fowl blood tester: PONV - fowl blood tester Female No 11/14/24 11:02 HX of Motion [...] 11/20/24 13:01 Respiratory Assessment Respiratory Assessment - fowl blood tester: Respiratory Tract Infection Hx - fowl blood tester Hx Respiratory Tract Infection No 11/14/24 11:02 STOP Sleep Apnea STOP Sleep Apnea - fowl blood tester: STOP Sleep Apnea - fowl blood tester Hx Hypertension Yes 11/14/24 11:02 Hx Sleep [...] Tobacco Use History Tobacco Use History - fowl blood tester: Tobacco Use History - fowl blood tester Tobacco Use Smoking Status Never smoker 11/14/24 11:02 Hx Tobacco Use Yes 11/14/24 11:02 Years Smoking Packs Smoked per Day Smoking Cessation Date was within the last 15 years Hx Smoking Cessation Date Hx Smoking Cessation Counseling Hematologic Medial History Hematologic Hx - fowl blood tester: 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 Hx of Blood Transfusion No 11/14/24 11:02 [...] confused, unrespo /Reproduction History /Reproductive History - fowl blood tester: /Reproductive Hx- fowl blood tester Hx Now No 11/14/24 11:02 Gestational Age [...] 1 ea PO DAILY 05/20/1907/09 History naphazoline 0.87494 %-pheniramine 2 drp OP PRN PRN All [...] MD Cosigner Signature: Date CC: ~ Signed [facility]08-04-2025 Radiology Diagnostic study note [facility] Imaging Services [address] [place], [place] [address] Abdomen/Pelvis without Cont MR#: [id number] Acct: [id number] Name: TERESA RAINEY Rep #: [id number] 7 : 1950 M 74 From: Tyron Sprague MD PCP: Dr. Nathanael Rojas, DO Status: REG CLI Study:Abdomen/Pelvis without Cont Date of Exa m: 11/11/24 Exam# [id number] Ordering Dr: Esthela Leo PROCEDURE: ABDOMEN/PELVIS WITHOUT [...] MINA CC: Dr. Nathanael Rojas, DO; Esthela Vincent ~ Vegetable Packer: Signed [facility]06-06-2025 History of Present illness Narrative* Karly Alvarado APRN.COUNT TEAM MEMBER - 09/13/2024 3:00 PM EDT FOLLOW UP VISIT - ENDOSCOPY Teresa Rainey 1950 [id number] REFERRING PHYSICIAN: No referring provider defined for [...] as needed for worsening/no improvement. Karly Alvarado APRN.COUNT TEAM MEMBER documented [facility] NoteHNO ID: [id number] Author: KARLY ALVARADO APRN.COUNT TEAM MEMBER Service: ? Author Type: Nurse Practitioner Type: Progress Notes Filed: 09/13/2024 15:08 Note Text: FOLLOW UP VISIT - ENDOSCOPY Teresa Rainey 1950 [id number] REFERRING PHYSICIAN: No referring provider defined for [...] as needed for worsening/no improvement. Karly Alvarado APRN.[facility]05-30-2025 Note* Discharge Instr - Nursing - Meme Brower RN - 09/06/2024 10:12 AM EDT The patient received a copy of Colonoscopy discharge instructions that contain information for how to contact the physician who performed the procedure and when to seek medical care. [facility]05-30-2025 Miscellaneous Notes* Discharge Instr - Nursing - Meme Brower RN - 09/06/2024 10:12 AM EDT The patient received a copy of Colonoscopy discharge instructions that contain information for how to contact the physician who performed the procedure and when to seek medical care. documented in this encounterC[facility]05-30-2025 History and physical note * Minh Gerber MD - 09/06/2024 9:45 AM EDT HISTORY AND PHYSICAL Teresa Rainey : 1950 REFERRING PHYSICIAN: Minh Gerber III [address] [facility] [address] CHIEF COMPLAINT: Patient presents with: Consult HPI: [...] colonoscopy was 09/[address] Gerber at [facility]. Sedation:Fentanyl 50 micrograms IV, Midazolam 4 [...] mouth every 6 hours as needed. Fish Oil-[place]-3 Fatty Acids (FISH OIL) 340-1,000 mg cap [...] edited and updated as necessary. Karly Alvarado APRN.COUNT TEAM MEMBER UPDATED HISTORY AND PHYSICAL EXAMINATION SERVICE DATE: [...] DATE: September 06, 2024 TIME: 9:31 AM [facility]05-30-[facility] History and physical note* Minh Gerber MD - 09/06/2024 9:45 AM EDT HISTORY AND PHYSICAL Teresa Rainey : 1950 REFERRING PHYSICIAN: Minh Gerber III [address] [place] [address] CHIEF COMPLAINT: Patient presents with: Consult HPI: [...] colonoscopy was 09/[address] Gerber at [facility]. Sedation:Fentanyl 50 micrograms IV, Midazolam 4 [...] mouth every 6 hours as needed. Fish Oil-[place]-3 Fatty Acids (FISH OIL) 340-1,000 mg cap [...] edited and updated as necessary. Karly Alvarado APRN.COUNT TEAM MEMBER UPDATED HISTORY AND PHYSICAL EXAMINATION SERVICE DATE: [...] 2024 TIME: 9:31 AM documented in [facility] encounterC[facility]05-[facility] History of Present illness Narrative* Karly Alvarado APRN.COUNT TEAM MEMBER - 08/12/2024 2:30 PM EDT HISTORY AND PHYSICAL Teresa Rainey : 1950 REFERRING PHYSICIAN: iMnh Gerber III [address] [facility] [address] CHIEF COMPLAINT: Patient presents with: Consult HPI: [...] colonoscopy was 09/[address] Gerber at [facility]. Sedation:Fentanyl 50 micrograms IV, Midazolam 4 [...] mouth every 6 hours as needed. Fish Oil-[place]-3 Fatty Acids (FISH OIL) 340-1,000 mg cap [...] edited and updated as necessary. Karly Alvarado APRN.COUNT TEAM MEMBER documented in this encounterC[facility]05-05-2025 NoteHNO ID: [id number] Author: KARLY ALVARADO APRN.COUNT TEAM MEMBER Service: ? Author Type: Nurse Practitioner Type: Progress Notes Filed: 08/12/2024 14:53 Note Text: HISTORY AND PHYSICAL Teresa Rainey : 1950 REFERRING PHYSICIAN: Minh Gerber III [address] [facility] [address] CHIEF COMPLAINT: Patient presents with: Consult HPI: [...] colonoscopy was 09/[address] Gerber at [facility]. Sedation:Fentanyl 50 micrograms IV, Midazolam 4 [...] mouth every 6 hours as needed. Fish Oil-[place]-3 Fatty Acids (FISH OIL) 340-1,000 mg cap [...] of colon polyps, family (more content not included)...[facility]04-[facility] Evaluation note* Diagnosis Onset Date Resolution Status Admit Date Status post cervical spinal fusion acute July 25, 2024 1:36pm Status post cervical spinal fusion acute August 22, 2024 2 :24pm Status post cervical spinal fusion acute October 18, 2024 12:58pm [facility] Work Phone: 1(938) 983-713004-03-2025 Progress note [facility] Medical Records Department [address] [place] [address] Progress Note - Orthopedic 07/11/24 1229 MR#: [id number] Acct: [id number] Name: TERESA RAINEY Rep #:[id number] 1 : 1950 73 From: Florina KYLE PCP: Dr. Nathanael Rojas, DO Status:ADM SILVANO Location: MS3 [place]805-3 Subjective Subjective Postop day 1 C4-6 ACDF. [...] No fracture or malalignment identified. Reading Location: [facility] Physical Exam Narrative Gauze and Tegaderm [...] Cosigner Signature (if applicable): CC: ~ Signed [facility]04-03-2025 Radiology Diagnostic study note [facility] Imaging Services [address] [place], [place] [address] Cerv Spine 2 or 3 Views MR#: [id number] Acct: [id number] Name: TERESA RAINEY Rep #: [id number] 1 : 1950 M 73 From: Maninder Puckett MD PCP: Dr. Nathanael Rojas, DO Status: ADM SILVANO Study:Cerv Spine 2 or 3 Views Date of Exam: 07/11/24 Exam# [id number] Ordering Dr: Alessandro Metz PROCEDURE: CERV SPINE [...] prevertebral soft tissue swelling/thickening. Left anterior neck Antoni drain, safety pin and cervical collar noted. The visualized apices appear clear. RAD/Cerv Spine 2 or 3 Views IMPRESSION: Status post anterior cervical disc fusion with intervertebral disc spacers C4 through C6 appears anatomic and intact as above. No fracture or malalignment identified. Reading Location: [facility] CC: ANABELLA Warren; Dr. Nathanael Rojas DO ~ Vegetable Packer: Signed [facility]04-02-2025 Progress note Author Racheal [facility] Note Date/Time July 10, 2024 7:28 pm [facility] Medical Records Department [address] [place] [address] Progress Note 07/10/24 1707 MR#: [id number] Acct: [id number] Name: TERESA RAINEY Rep #:[id number] 9 : 1950 73 From: Racheal Neves MD PCP: Dr. Nathanael Rojas DO Status:ADM SILVANO Location: [facility] ZL771-2 Subjective Subjective Patient is a 73-year-old male [...] plate and screw fixation device. Reading Location: [place] [address] Physical Exam Const alert, oriented x3 and [...] with you. Charges/Coding Visit Charges Inpatient E&M: 13850 Subs Hosp L2 07/10/241927 <Electronically signed by Racheal Neves MD> Racheal Neves MD Cosigner Signature (if applicable): CC: ~ Signed [facility] Work Phone: 1(583) 294-575904-02-2025 Progress note [facility] Medical Records Department [address] [facility] [place] [address] Progress Note 07/10/24 1707 MR#: [id number] Acct: [id number] Name: TERESA RAINEY Rep #:[id number] 9 : 1950 73 From: Racheal Neves MD PCP: Dr. Nathanael Rojas, DO Status:ADM SILVANO Location: [place] [address]-1 Subjective Subjective Patient is a 73-year-old male [...] plate and screw fixation device. Reading Location: [facility] Physical Exam Const alert, oriented x3 [...] with you. Charges/Coding Visit Charges Inpatient E&M: 82877 Subs Hosp L2 07/10/241927 Racheal Neves MD Cosigner Signature (if applicable): CC: ~ Signed [facility]04-02-2025 Consult note Author Jann Winston [facility] Note Date/Time July 10, 2024 11:2 9am [facility] Medical Records Department [address] [place] [address] Anesthesia Postop Eval II 07/10/24 1129 MR#: [id number] Acct: [id number] Name: TERESA RAINEY Rep #:[id number] 2 : 1950 73 From: Jann Winston MD PCP: Dr. Nathanael Rojas, DO Status:REG SDC Y Race: C Location: [address] Anesthesia Postop Eval I Sum Postop Eval Completion status Anesthesia document: Postop Eval 1 completed: Yes Anesthesia Postop Eval I Summary Anesthesia Postop Eval I Summary: Anesthesia Postop Eval I: Assessment Summary Airway patent Yes 07/10/24 10:59 REFRIGERATION SYSTEMS INSTALLER.PKEL Spontaneous unlabored Yes 07/10/24 10:59 REFRIGERATION SYSTEMS INSTALLER.PKEL respirations Mental status Asleep 07/10/24 10:59 REFRIGERATION SYSTEMS INSTALLER.PKEL nausea No 07/10/24 10:59 REFRIGERATION SYSTEMS INSTALLER.PKEL Vomiting No 07/10/24 10:59 REFRIGERATION SYSTEMS INSTALLER.PKEL Anesthesia Postop Eval I: Fluid Summary Crystalloid volume administer 2,400 07/10/24 10:59 REFRIGERATION SYSTEMS INSTALLER.PKEL (ml) Colloids volume administered ( ml) Blood Product volume administered (ml) Total IV fluid infused 2,400 07/10/24 10:59 REFRIGERATION SYSTEMS INSTALLER.PKEL Anesthesia Postop Eval I: Summary Notes Anesthesia Complication No 07/10/24 10:59 REFRIGERATION SYSTEMS INSTALLER.PKEL Anesthesia Complication Comment: Post-operative progress note Anesthesia: Postop Eval II Evaluation Mental status: Awake Pain Level: 0 nausea: No Vomiting: No 07/10/24 1129 <Electronically signed by Jann Winston MD > Date _ Jann Winston MD Cosign Signature: Date CC: ~ Signed [facility] Work Phone: 1(967) 976-241804-02-2025 Consult note Author Chon Epps [facility] Note Date/Time July 10, 2024 10:5 9am [facility] Medical Records Department [address] [place] [address] Anesthesia Postop Eval I 07/10/24 1058 MR#: [id number] Acct: [id number] Name: TERESA RAINEY Rep #:[id number] 8 : 1950 73 From: Chon Epps CRNA PCP: Dr. Nathanael Rojas, DO Status:REG SDC Y Race: C Location: [address] Anesthesia: Postop Eval I Current Vital [...] CRNA Cosigner Signature: Date CC: ~ Signed [facility] Work Phone: 1(757) 646-665604-02-2025 Consult note [facility] Medical Records Department [address] [place] [address] Anesthesia Postop Eval II 07/10/24 1129 MR#: [id number] Acct: [id number] Name: TERESA RAINEY Rep #:[id number] 2 : 1950 73 From: Jann Winston MD PCP: Dr. Nathanael Rojas, DO Status:[place] [facility] [place] Race: C Location: [place] [address] Anesthesia Postop Eval I Sum Postop Eval Completion status Anesthesia document: Postop Eval 1 completed: Yes Anesthesia Postop Eval I Summary Anesthesia Postop Eval I Summary: Anesthesia Postop Eval I: Assessment Summary Airway patent Yes 07/10/24 10:59 REFRIGERATION SYSTEMS INSTALLER.PKEL Spontaneous unlabored Yes 07/10/24 10:59 REFRIGERATION SYSTEMS INSTALLER.PKEL respirations Mental status Asleep 07/10/24 10:59 REFRIGERATION SYSTEMS INSTALLER.PKEL nausea No 07/10/24 10:59 REFRIGERATION SYSTEMS INSTALLER.PKEL Vomiting No 07/10/24 10:59 REFRIGERATION SYSTEMS INSTALLER.PKEL Anesthesia Postop Eval I: Fluid Summary Crystalloid volume administer 2,400 07/10/24 10:59 REFRIGERATION SYSTEMS INSTALLER.PKEL (ml) Colloids volume administered ( ml) Blood Product volume administered (ml) Total IV fluid infused 2,400 07/10/24 10:59 REFRIGERATION SYSTEMS INSTALLER.PKEL Anesthesia Postop Eval I: Summary Notes Anesthesia Complication No 07/10/24 10:59 REFRIGERATION SYSTEMS INSTALLER.PKEL Anesthesia Complication Comment: Post-operative progress note Anesthesia: Postop Eval II Evaluation Mental status: Awake Pain Level: 0 nausea: No Vomiting: No 07/10/24 1129 > Date _ Jann Winston MD Cosigner Signature: Date CC: ~ Signed [facility]04-02-2025 Radiology Diagnostic study note [facility] Imaging Services [address] [place], [place] [address] Cerv Spine 2 or 3 Views MR#: [id number] Acct: [id number] Name: TERESA RAINEY Rep #: [id number] 6 : 1950 M 73 From: Tyron Sprague MD PCP: Dr. Nathanael Rojas, DO Status: [facility] Study:Cerv Spine 2 or 3 Views Date of Exam: 07/10/24 Exam# [id number] Ordering Dr: Anneliese Yip MD PROCEDURE: Intraoperative [...] plate and screw fixation device. Reading Location: [place] [address] CC: Dr. Alexandre Yip MD; Dr. Nathanael Rojas, DO ~ Vegetable Packer: Signed [facility]04-02-2025 Consult note [facility] Medical Records Department [address] [place] [address] Anesthesia Postop Eval I 07/10/24 1058 MR#: [id number] Acct: [id number] Name: TERESA RAINEY Rep #:[id number] 8 : 1950 73 From: Chon Epps CRNA PCP: Dr. Nathanael Rojas DO Status:REG SDC Y Race: C Location: [place] [address] Anesthesia: Postop Eval I Current Vital Signs [...] Eval 1 completed: Yes 07/10/24 1059 y REFRIGERATION SYSTEMS INSTALLER> Date _ Chon Epps CRNA Cosigner Signature: Date CC: ~ Signed [facility]04-02-2025 Procedure note [facility] Medical Records Department [address] [place] [address] Operative Report 07/10/24 1044 MR#: [id number] Acct: [id number] Name: TERESA RAINEY Rep #:[id number] 5 : 1950 73 From: Alexandre Yip MD PCP: Dr. 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, kyphosis Post-Operative Diagnosis: Same Surgery/Procedure Performed: C4-6 ACDF human resources manager: Madison Leaf Coverer: Florina Metz Tasks completed by cutter first: Closing, Removing tissue, Implanting device, Hemostasis: Electrocautery [...] all DRAINS/GRAFTS/IMPLANTS that apply: Drains Drain details: [place] , Graft Graft details: Structural allograft cortical cancellous strut, DBX and Implanted device Implanted device details: Medtronic Theodore Elite plate instrumentation Estimated Blood Loss: 30 cc Specimen collected: No Description of surgery: Preoperative diagnosis: C4-6 disc degeneration with stenosis, radiculomyelopathy, prior C6-7 fusion, kyphosis Postoperative diagnosis: Same Name of procedure: C4-6 anterior cervical discectomy and fusion with plate instrumentation - Anterior cervical fusion C4-5, CPT code 09817 - Anterior plate instrumentation C4-6, CPT code 00839/59 - Anterior cervical fusion C5-6, CPT code 99673/51 -C4-5 structural allograft bone with DBX, CPT code 91295 -C5-6 structural allograft bone with DBX, CPT code 26428 Attending surgeon: Alexandre Yip M.D. Anesthesia: Gen. endotracheal Estimated blood loss: 30 mL Complications: None Instrumentation used: Medtronic Theodore Elite plate, LASR corticocancellous block Indications: The [...] Disc fragments were removed with the pituitary. Justice pins were placed in C4 and C5 [...] good pullout strength. A 42 mm Medtronic Theodore Elite plate was then fixedto C4-6 with 17 mm screws. A lateral x-ray was then taken to check the length of the screws. Both AP and lateral x-rays showed good positioning of plate and screws. The locking mechanism over the scre w heads was then turned. Thorough irrigation was again given. Hemostasis was achieved. A [place] drain was then inserted. Closure was done [...] Yip MD; Dr. Nathanael Rojas, DO~ Signed [facility]04-02-2025 History and physical note Author Alexandre Yip [facility] Note Date/Time July 10, 2024 7:23 am [facility] Medical Records Department [address] [place] [address] History & Physical Exam 07/10/24 0723 MR#: [id number] Acct: [id number] Name: TERESA RAINEY Rep #:[id number] 2 : 1950 73 From: Alexandre Yip MD PCP: Dr. Nathanael Rojas, DO Status[place] [facility] Location: [place] [address] History and Physical Date of Admission: 07/10/24 MR#: [id number] Acct: [id number] Name: TERESA RAINEY Rep #: [id number] : 1950 Provider: Dr. Alexandre Yip MD Age/Sex: 73/M [place] [facility] [place]: Signed Intake Vital Signs 04/09/2412:56 07/04/2512:32 [...] ea PO DAILY 05/20/19 07/04/24 History naphazoline 0.67960 %-pheniramine 2 drp OP PRN PRN Allergies [...] Yip MD; Dr. Nathanael Rojas, DO~ Signed [facility] Work Phone: 1(892) 715-704304-02-2025 Consult note Author Jann yvette [facility] Note Date/Time July 10, 2024 6:47 am [facility] Medical Records Department [address] [place] [address] Pre-Anesthesia Evaluation 07/10/24 0646 MR#: [id number] Acct: [id number] Name: TERESA RAINEY Rep #:[id number] 8 : 1950 73 From: Jann Winston MD PCP: Dr. Nathanael Rojas, Status:[place] [facility] [place] Race: C Location: [place] [address] ASA Classification* ASA Classification ASA Classification: 2 [...] C4-5 C5-6 Anesthesia History Anesthesia History - fowl blood tester: Anesthesia History - fowl blood tester Hx Hospitalization No 06/26/24 09:09 Any Problems [...] take am of surgery PONV PONV - fowl blood tester: PONV - fowl blood tester Female No 06/26/24 09:09 HX of Motion [...] 07/10/24 06:26 Respiratory Assessment Respiratory Assessment - fowl blood tester: Respiratory Tract Infection Hx - fowl blood tester Hx Respiratory Tract Infection No 06/26/24 09:09 STOP Sleep Apnea STOP Sleep Apnea - fowl blood tester: STOP Sleep Apnea - fowl blood tester Hx Hypertension Yes: CONTROLLED WITH MED 06/26/24 [...] Tobacco Use History Tobacco Use History - fowl blood tester: Tobacco Use History - fowl blood tester Tobacco Use Smoking Status Current every day smoker 06/26/24 09:09 Hx Tobacco Use Yes 06/26/24 09:09 Years Smoking Packs Smoked per Day Smoking Cessation Date was within the last 15 years Hx Smoking Cessation Date Hx Smoking Cessation Counseling Hematologic Medial History Hematologic Hx - fowl blood tester: 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 Hx of Blood Transfusion No 06/26/24 09:09 [...] confused, unrespo /Reproduction History /Reproductive History - fowl blood tester: /Reproductive Hx- fowl blood tester Hx Now No 06/26/24 09:09 Gestational Age [...] 1 ea PO DAILY 05/20/1907/09 History naphazoline 0.54779 %-pheniramine 2 drp OP PRN PRN All [...] MD Cosigner Signature: Date CC: ~ Signed [facility] Work Phone: 1(138) 794-531404-02-2025 History and physical note [facility] Medical Records Department [address] [place] [address] History & Physical Exam 07/10/24 07 MR#: [id number] Acct: [id number] Name: TERESA RAINEY Rep #:[id number] 2 : 1950 73 From: Alexandre Yip MD PCP: Dr. Nathanael Rojas, DO Status[place] [facility] Location: [place] [address] History and Physical Date of Admission: 07/10/24 MR#: [id number] Acct: [id number] Name: TERESA RAINEY Rep #: [id number] : 1950 Provider: Dr. Alexandre Yip MD [...] ea PO DAILY 05/20/19 07/04/24 History naphazoline 0.43371 %-pheniramine 2 drp OP PRN PRN Allergies [...] Yip MD; Dr. Nathanael Rojas, DO~ Signed [facility]04-02-2025 [facility] Medical Records Department [address] [facility] [place] [place] [address] History Physical Exam 07/10/24722 MR#: [id number] Acct: [id number] Name: RAINEYTERESASTEVEN JACOB Rep #: [id number] : 1950 73 From: Alexandre Yip MD PCP: Dr. Nathanael Rojas, Status:[facility] Location: [place] [address] History and Physical Date of Admission: 07/10/24 MR#: [id number] Acct: [id number] Name: TERESA RAINEY Rep #: [id number] : 1950 Provider: Dr. Alexandre Yip MD [...] ea PO DAILY 05/20/19 07/04/24 History naphazoline 0.20659 %-pheniramine 2 drp OP PRN PRN Allergies [...] by me, Dr. Alexandre Yip MD 07/04/24 3500. Part of today???s visit was documented by Willow Kline ATC, acting as scribe. TERSEA RAINEY is a 73 year old M [...] his cervical spine on (more content not included)...[facility]04-02-2025 Consult note [facility] Medical Records Department [address] [place] [address] Pre-Anesthesia Evaluation 07/10/24 0646 MR#: [id number] Acct: [id number] Name: TERESA RAINEY NIDIA Rep #:[id number] 8 : 1950 73 From: Jann Winston MD PCP: Dr. Nathanael Rojas, DO Status:REG SDC Y Race: C Location: [place] [address] ASA Classification* ASA Classification ASA Classification: 2 [...] C4-5 C5-6 Anesthesia History Anesthesia History - fowl blood tester: Anesthesia History - fowl blood tester Hx Hospitalization No 06/26/24 09:09 Any Problems [...] take am of surgery PONV PONV - fowl blood tester: PONV - fowl blood tester Female No 06/26/24 09:09 HX of Motion [...] 07/10/24 06:26 Respiratory Assessment Respiratory Assessment - fowl blood tester: Respiratory Tract Infection Hx - fowl blood tester Hx Respiratory Tract Infection No 06/26/24 09:09 STOP Sleep Apnea STOP Sleep Apnea - fowl blood tester: STOP Sleep Apnea - fowl blood tester Hx Hypertension Yes: CONTROLLED WITH MED 06/26/24 [...] Tobacco Use History Tobacco Use History - fowl blood tester: Tobacco Use History - fowl blood tester Tobacco Use Smoking Status Current every day smoker 06/26/24 09:09 Hx Tobacco Use Yes 06/26/24 09:09 Years Smoking Packs Smoked per Day Smoking Cessation Date was within the last 15 years Hx Smoking Cessation Date Hx Smoking Cessation Counseling Hematologic Medial History Hematologic Hx - fowl blood tester: 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 Hx of Blood Transfusion No 06/26/24 09:09 [...] confused, unrespo /Reproduction History /Reproductive History - fowl blood tester: /Reproductive Hx- fowl blood tester Hx Now No 06/26/24 09:09 Gestational Age [...] 1 ea PO DAILY 05/20/1907/09 History naphazoline 0.14858 %-pheniramine 2 drp OP PRN PRN All [...] MD Cosigner Signature: Date CC: ~ Signed [facility]03-27-2025 Evaluation note* Diagnosis Onset Date Resolution Status [...] fusion acute August 22, 2024 2 :24pm [employer] Work Phone: [phone] Evaluation note* Diagnosis Onset Date Resolution Status [...] spinal fusion acute October 18, 2024 12:58pm [employer] [facility] Work Phone: [phone] Evaluation note* Diagnosis Onset Date Resolution Status [...] spinal fusion acute July 25, 2024 1:36pm [employer] Work Phone: [phone] Evaluation note* Diagnosis Onset Date Resolution Status [...] spinal fusion acute July 10, 2024 10:42am [facility] Work Phone: 1(975) 897-475509-25-2023 Discharge summary Author Blas Copeland [facility] January 02, 2023 4:42pm Note Date/Time January 02, 2023 2:05pm [facility] Medical Records Department [address] [place] [address] Emergency Department Summary 01/02/23 MR#: [id number] Acct: [id number] Name: TERESA RAINEY Rep #:[id number] 0 : 1950 72 From: Blas Copeland [...] headache. No vomiting. Heis eating and drinking. [facility] Medical History Arthritis Back pain Benign [...] DAILY 05/20/19 [History Last Taken Unknown] naphazoline 0.70015 %-pheniramine 0.315 % eye drops 2 drp OP PRN PRN Allergies 05/20/19 [History Last Taken 12/08/22] diphenhydramine HCl 25 mg capsule 25 mg PO BID PRN Allergies 05/21/19 [History Last Taken Unknown] docusate sodium 100 mg capsule 100 mg PO QHS PRN Constipation 05/21/19 [History Last Taken 12/08/22] amlodipine 5 mg tablet 5 mg PO DAILY 12/02/22 [History Last Taken 12/09/22] rwxtyvm-pbebdbynpgydk-jgdmsuqg 250 mg-250 mg-65 mg tablet (Excedrin Extra [...] he is alert and oriented x3. His rcroos-xt-rcoi is actually pretty good for me. Family [...] door and back and moved himself up [facility] bed. He is now walked to [...] 70.8 H Lymph % (Auto) 17.4 L [place] % (Auto) 8.9 Eos % (Auto) 2.0 [...] Clarity Clear Urine pH 6.0 Ur Specific [place] 1.010 Urine Protein 30 H Urine Glucose [...] Diffuse nonspecific ST and T wave changes. MO interval, QRS duration and QTc are normal. [...] your Primary Care Provider. Call [facility] ([phone]) or report to the closest Emergency Room. Call 911 if necessary. 01/02/231641 <Electronically signed by Blas Copeland MD> Cosigner Signature (if applicable): CC: Dr. Nathanael Rojas DO ~ Signed [facility] Work Phone: 1(290) 668-913509-01-2023 Discharge summary Author Duke Trinh [facility] December 09, 2022 9:15am Note Date/Time December 09, 2022 9:15am [facility] Medical Records Department [address] [place] [address] Instructions for Home/Discharge Instructions 12/09/2215 MR#: [id number] Acct: [id number] Name: TERESA RAINEY Rep #:[id number] 5 : 1950 72 From: Duke Trinh MD PCP: Dr. Nathanael Rojas, DO Status:[place] [facility] Discharge Instructions Diet Discharge Diet: No restrictions Activity Discharge Activity: Return to Normal Activity and May Not Drive (while taking narcotic pain medications.) Follow Up Care Please Follow Up With: Duke Trinh MD When: Call [phone] for an appointment Test Results: Test results [...] Abdomen Single View (Routine) Timeframe: 20221209 Facility: [facility] - Location: [facility] Ordered By: Dr. Duke Trinh Referrals / Follow Up: Duke Trinh MD [Med Staff - Active Staff] - Nathanael Rojas DO [Primary Care Provider] - Disposition Disposition (needs filled in before D/C Order can be placed): Home, Self Care 12/09/22914<Electronically signed by Duke Trinh MD>Duke Trinh MD CC: Dr. Nathanael Rojas, ~ Signed [facility] Work Phone: 1([phone]) 197-491909-01-2023 History and physical note Author Duke Trinh [facility] December 09, 2022 9:15am Note Date/Time December 09, 2022 9:15am [facility] Medical Records Department [address] [place] [address] History & Physical Exam 12/09/22913 MR#: [id number] Acct: [id number] Name: TERESA RAINEY Rep #:[id number] 3 : 1950 72 From: Duke Trinh MD PCP: Dr. Nathanael Rojas DO Status:[facility] Location: [place] [address] HPI - General General Date of Service: 12/09/22 Chief Complaint: Right multiple large kidney stones HPI Narrative TERESA RAINEY, is a 72 M who presents for a right ureteroscopy laser lithotripsy of stones and possible percutaneous approach. [facility] Medical History (Updated 12/02/22 @ 10:33 [...] DAILY 05/20/19 [History Last Taken Unknown] naphazoline 0.84063 %-pheniramine 0.315 % eye drops 2 drp OP PRN PRN Allergies 05/20/19 [History Last Taken 12/08/22] diphenhydramine HCl 25 mg capsule 25 mg PO BID PRN Allergies 05/21/19 [History Last Taken Unknown] docusate sodium 100 mg capsule 100 mg PO QHS PRN Constipation 05/21/19 [History Last Taken 12/08/22] amlodipine 5 mg tablet 5 mg PO DAILY 12/02/22 [History Last Taken 12/09/22] ieuuqqw-jbsagvncqpzye-wyzbheru 250 mg-250 mg-65 mg tablet (Excedrin Extra [...] Trinh MD; Dr. Nathanael Rojas, DO~ Signed [facility] Work Phone: [phone]) 745-934009-01-2023 Procedure [facility] 03-16-2022 History of Present illness Narrative* Lucas [...] Q-T Interval (corrected) QTC Calculation (Bezet) P [place] R [place] T [place] Reviewed outside labs/imaging/notes: None IMPRESSION/PLAN Teresa Rainey [...] physician. Lucas Aaron DO documented in this [id number] History of Present illness Narrative* Jerri Clemens PA-C - 09/27/2021 1:53 PM EDT FOLLOW UP VISIT - ENDOSCOPY NAME: Teresa Rainey CLINIC NO.: [id number] DATE OF SERVICE: 09/27/2021 : 1950 REFERRING [...] which included preparing to see the patient, bwzv-qv-bwsz patient care, completing clinical documentation, counseling and educating the patient/family/caregiver, independently interpreting results (not separately reported) and communicating results to the patient/family/caregiver. Jerri Clemens PA-C documented [facility] Instructions* Patient Instructions* Jerri Clemens PA-C - 09/27/2021 1:51 PM EDT The following instructions are important for you related to your office visit today with the [facility] General Surgeons. INSTRUCTIONS FOLLOWING A [...] you should contact our office immediately @ [phone] and ask to be transferred to the General Surgery department. documented in this encounterC[facility]06-[facility] Nurse Note* Meme Brower RN - [...] recommendations. Meme Brower RN documented in this encounterC[facility]06-02-2022 History and physical note * Minh [...] mouth every 6 hours as needed. Fish Oil-[place]-3 Fatty Acids (FISH OIL) 340-1,000 mg cap [...] entered by the nurse and reviewed by de Nursing Notes: Ericka Mcknight RN 08/03/2021 1:50 [...] patient was offered a surgery/procedure at a [facility]. I have counseled the patient regarding [...] 2021 TIME: 7:32 AM documented in this encounterC[facility]04-27-2022 Miscellaneous Notes* Telephone Encounter - Bobbi Dickerson - 08/04/2021 8:21 AM EDT Patient called my direct line and left voicemail stating 08/19 will NOT work for colonoscopy. I attempted to call patient but no answer and no voicemail. Sent a Always Preppedt message. Bobbi Dickerson * Telephone Encounter - Bobbi Dickerson - 08/03/2021 2:20 PM EDT 08-19-2021 COLON ASC documented in this encounterC[facility]04-26-2022 History of Present illness Narrative* Jerri [...] mouth every 6 hours as needed. Fish Oil-[place]-3 Fatty Acids (FISH OIL) 340-1,000 mg cap [...] entered by the nurse and reviewed by de Nursing Notes: Ericka Mcknight RN 08/03/2021 1:50 [...] patient was [facility]. I have counseled the patient [...] mail. Jerri Clemens PA-C documented in this encounterC[facility]04-26-2022 Nurse Note* Ericka Mcknight RN - [...] 2014 Ericka Mcknight RN [facility] note Author Alvaro Crews [facility] Note Date/Time November 20, 2024 5: 11pm [facility] Medical Records Department [address] [place] [address] Anesthesia Postop Eval I 11/20/24 1611 MR#: [id number] Acct: [id number] Name: TERESA RAINEY Rep #:[id number] 1 : 1950 74 From: Alvaro VIEIRA PCP: Dr. Nathanael Rojas, DO Status:REG SDC Y Race: C Location: [place] [address] Anesthesia: Postop Eval I Current Vital Signs [...] CRNA Cosigner Signature: Date CC: ~ Signed [facility] Work Phone: Consult note Author Karen Neves [facility] Note Date/Time November 20, 2024 4: 39pm [facility] Medical Records Department [address] [place] [address] Anesthesia Postop Eval II 11/20/24 1638 MR#: [id number] Acct: [id number] Name: TERESA RAINEY Rep #:[id number] 7 : 1950 74 From: Karen Neves CRNA PCP: Dr. Nathanael Rojas, DO Status:REG SDC Y Race: C Location: [place] [address] 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/24 16:11 REFRIGERATION SYSTEMS INSTALLER.TNES Spontaneous unlabored Yes 11/20/24 16:11 REFRIGERATION SYSTEMS INSTALLER.TNES respirations Mental status nausea No 11/20/24 16:11 REFRIGERATION SYSTEMS INSTALLER.TNES Vomiting No 11/20/24 16:11 REFRIGERATION SYSTEMS INSTALLER.TNES Anesthesia Postop Eval I: Fluid Summary Crystalloid volume administer 600 11/20/24 16:11 REFRIGERATION SYSTEMS INSTALLER.TNES (ml) Colloids volume administered ( ml) Blood Product volume administered (ml) Total IV fluid infused 600 11/20/24 16:11 REFRIGERATION SYSTEMS INSTALLER.TNES Anesthesia Postop Eval I: Summary Notes Anesthesia Complication No 11/20/24 16:11 REFRIGERATION SYSTEMS INSTALLER.TNES Anesthesia Complication Comment: Post-operative progress note Anesthesia: Postop Eval II Evaluation Mental status: Awake Pain Level: 2 nausea: No Vomiting: No 11/20/24 1639 <Electronically signed by Karen shaw CRNA> Date _ Karen Neves CRNA Cosigner Signature: Date CC: ~ Signed [facility] Work Phone: Discharge summary Author Duke Trinh [facility] Note Date/Time November 20, 2024 5: 11pm [facility] Medical Records Department [address] [place] [address] Instructions for Home/Discharge Instructions 11/20/24 1558 MR#: [id number] Acct: [id number] Name: TERESA RAINEY Rep #:[id number] 5 : 1950 74 From: Duke Trinh [...] Up With: Duke Trinh MD When: Call [phone] for an appointment Test Results: Test results from this visit will be discussed in further detail at your follow- up appointment, if applicable. Discharge Plan Admission Primary Reason for Your Visit: right ESWL and stent Attending Provider: Duke Trinh Primary Care Provider: Nathanael Rojas Instructions Print Language: Georgian Discharge Orders/Prescriptions Prescriptions: New ciprofloxacin HCl [Cipro] [...] mg tablet 100 mg PO DAILY vitamin S29-gzcba acid 1,000-400 mcg tablet, sublingual 1 tab [...] can be placed): Home, Self Care 11/20/24 3546<Electronically signed by Duke Trinh MD>Duke Trinh MD CC: Dr. Nathanael Rojas DO ~ Signed [facility] Work Phone: Evaluation note* Diagnosis Encounter for screening for malignant neoplasm of colon- Primary Special screening for malignant neoplasms, colon Personal history of colonic polyps Family history of colon cancer Family history of malignant neoplasm of gastrointestinal tract documented in this encounter [facility] note* Diagnosis History of colonic polyps Personal history of colonic polyps Family history of colon cancer Family history of malignant neoplasm of gastrointestinal tract documented in this encounter [facility] note* Diagnosis Tubular adenoma- Primary Benign neoplasm of unspecified site Family history of colon cancer Family history of malignant neoplasm of gastrointestinal tract History of colonic polyps Personal history of colonic polyps documented in this encounter [facility] note* Diagnosis History of colonic polyps- Primary Personal history of colonic polyps Family history of colon cancer Family history of malignant neoplasm of gastrointestinal tract documented in this encounter [facility] noteNo assessment information availableWCleveland Clinic [facility] Work Phone: evaluation note* Diagnosis Pre-op examination- Primary Myogenic ptosis of bilateral eyelids Essential hypertension Unspecified essential hypertension Mixed hyperlipidemia Type 2 diabetes mellitus with other ophthalmic complication, without long-term current use of insulin (HCC) documented in this encounter [facility] note* Diagnosis Screen for colon cancer- Primary Special screening for malignant neoplasms, colon History of colonic polyps Personal history of colonic polyps Family history of colon cancer Family history of malignant neoplasm of gastrointestinal tract [facility] Diagnosis Encounter for screening for malignant neoplasm of colon- Primary Special screening for malignant neoplasms, colon Screen for colon cancer Special screening for malignant neoplasms, colon History of colonic polyps Personal history of colonic polyps documented in this encounter [facility] note* Diagnosis Adenomatous polyp- Primary Benign neoplasm of unspecified site documented in this encounter [facility] Discharge instructions Additional Instructions Use individual reduction of medications and recording as we discussed.[facility] Work Phone: Progress note Author Florina Metz [facility] Note Date/Time July 11, 2024 12:3 3pm [facility] Medical Records Department [address] [place] [address] Progress Note - Orthopedic 07/11/24 1229 MR#: [id number] Acct: [id number] Name: TERESA RAINEY Rep #:[id number] 1 : 1950 73 From: Florina KYLE PCP: Dr. Nathanael Rojas, DO Status:ADM SILVANO Location: MS3 [id number] Subjective Subjective Postop day 1 C4-6 ACDF. [...] No fracture or malalignment identified. Reading Location: [id number] Physical Exam Narrative Gauze and Tegaderm was [...] Cosigner Signature (if applicable): CC: ~ Signed [facility] Work Phone: Reason for referral (narrative)* Outpatient Procedure (Routine) - Closed Specialty Diagnoses / Procedures Referred By Sadia t Referred To Contact [facility] Diagnoses History of colonic polyps Family history of colon cancer Procedures COLONOSCOPY SCREENING COLONOSCOPY FLX DX W/COLLJ SPEC WHEN Jerri Borges PA-C [address] [place] [address] [facility] [address] [place] [id number] Referral ID Status Reason Start Date Expiration Date V isits Requested Visits Authorized [id number] Closed Auto-Generate d Referral 08/03/2021 08/03/2022 1 1 [facility] for referral (narrative)* Outpatient Procedure (Routine) - Closed Specialty Diagnoses / Procedures Referred By Sadia banerjee Referred To Contact [facility] Diagnoses History of colonic polyps Family history of colon cancer Procedures COLONOSCOPY SCREENING COLONOSCOPY FLX DX W/COLLJ SPEC WHEN Jerri Borges PA-C [address] [place] [address] [facility] Disease [address] [address] Referral ID Status Reason Start Date Expiration Date V isits Requested Visits Authorized [id number] Closed Auto-Generate d Referral 08/03/2021 08/03/2022 1 1 [facility] for referral (narrative)No reason for referral information availableWCleveland Clinic [facility] Work Phone: Reason for visit Narrative* Outpatient Procedure (Routine) - Closed Specialty Diagnoses / Procedures Referred By Sadia banerjee Referred To Contact [facility] Diagnoses History of colonic polyps Family history of colon cancer Procedures COLONOSCOPY SCREENING COLONOSCOPY FLX DX W/COLLJ SPEC WHEN Jerri Borges PA-C [address] [place] [address] [address] Referral ID Status Reason Start Date Expiration Date V isits Requested Visits Authorized [id number] Closed Auto-Generate d Referral 08/03/2021 08/03/2022 1 1 [facility] for visit Narrative* Outpatient Procedure (Routine) - Closed Specialty Diagnoses / Procedures Referred By Sadia t Referred To Contact [facility] Diagnoses Screen for colon cancer History of colonic polyps Procedures COLONOSCOPY SCREENING COLONOSCOPY FLX DX W/COLLJ SPEC WHEN Karly Landa APRN.COUNT TEAM MEMBER [address] [place] [address] Phone: tel: fax: [facility] [address] [place] [address] Referral ID Status Reason Start Date Expiration Date V isits Requested Visits Authorized [id number] Closed Auto-Generate d Referral 08/12/2024 08/12/2025 1 1 [facility] Chief Complaint Chief Complaint Description Start Date neck pain Preliminary chief co mplaint data, not yet signed by the author as of Instructions Instruction Description Start Date CompletedPatient advised to follow-up with Primary Care Physician for BMI management. 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 Advance Directive(s) 09/09/2021 7:07 AM Advance Directive(s) 08/12/2021 4:39 PM Advance Directive Response Recorded Date/ Time Living Will Yes June 19, 2019 10:20am Power of Flight Engineer Inspector Yes June 18 10:20am Advance Directive Response Recorded Date/ Time Living Will Yes June 19, 2019 9:20am Power of Flight Engineer Inspector Yes June 18 9:20am Advance Directive Response Recorded Date/ Time Living Will Yes December 02 10:15am Power of Flight Engineer Inspector Yes December 02 10:15am Advance Directive Response Recorded Date/ Time Name of Medical Power of Flight Engineer Inspector December 02, 2022 10:15am Living Will Yes December 02 10:15am Power of Flight Engineer Inspector Yes December 02 023 10:15am Advance Directive Response Recorded Date/ Time Living Will No December 12 7:12pm Power of Flight Engineer Inspector No December 12, 2022 7:12pm Name of Medical Power of Flight Engineer Inspector December 02, 2022 10:15am Advance Directive Response Recorded Date/ Time Name of Medical Power of Flight Engineer Inspector December 02, 2022 10:15am Name of Medical Power of Flight Engineer Inspector MYRTLE January 02, 2023 1:09pm Living Will Yes January 02, 2023 1:09pm Power of Flight Engineer Inspector Yes December 1:09pm Advance Directive Response Recorded Date/ Time Living Will Yes January 02, 2023 1:09pm Power of Flight Engineer Inspector Yes December 1:09pm Advance Directive Response Recorded Date/ Time Living Will Yes July 10, 2024 1:49pm Do you have a Healthcare Power of Flight Engineer Inspector? Yes July 10, 2024 1:49pm Name of Medical Power of Flight Engineer Inspector July 10, 2024 1:49pm Advance Directive Response Recorded Date/ Time Do you have a Healthcare Power of Flight Engineer Inspector? Yes November 14, 2024 11:02am Name of Medical Power of Flight Engineer Inspector November 14, 2024 11:02am Assessments There may [...] or prosecute any alcohol or drug abuse patient.[facility] HospitalIn the event this information is protected by the Federal Confidentiality of Alcohol and Drug Abuse Patient Records regulations: The Federal rules restrict any use of the information to criminally investigate or prosecute any alcohol or drug abuse patient.[facility] HospitalIn the event this information is protected by the Federal Confidentiality of Alcohol and Drug Abuse Patient Records regulations: The Federal rules restrict any use of the information to criminally investigate or prosecute any alcohol or drug abuse patient.[facility] HospitalIn the event this information is protected by the Federal Confidentiality of Alcohol and Drug Abuse Patient Records regulations: The Federal rules restrict any use of the information to criminally investigate or prosecute any alcohol or drug abuse patient.[facility] HospitalIn the event this information is protected by the Federal Confidentiality of Alcohol and Drug Abuse Patient Records regulations: The Federal rules restrict any use of the information to criminally investigate or prosecute any alcohol or drug abuse patient.[facility] HospitalIn the event this information is protected by the Federal Confidentiality of Alcohol and Drug Abuse Patient Records regulations: The Federal rules restrict any use of the information to criminally investigate or prosecute any alcohol or drug abuse patient.[facility] HospitalIn the event this information is protected by the Federal Confidentiality of Alcohol and Drug Abuse Patient Records regulations: The Federal rules restrict any use of the information to criminally investigate or prosecute any alcohol or drug abuse patient.[facility] HospitalIn the event this information is protected by the Federal Confidentiality of Alcohol and Drug Abuse Patient Records regulations: The Federal rules restrict any use of the information to criminally investigate or prosecute any alcohol or drug abuse patient.[facility] Care Teams (unrecognized sec tion and content) Home Care Liaison Relationship Specialty Start Date End Date Nathanael Rojas DO [address] [address] PCP - General Family Practice 06/22/21 Home Care Liaison Relationship Specialty Start Date End Date Nathanael Rojas DO [address] [place] [address] PCP - General Family Practice 06/22/21 Home Care Liaison Relationship Specialty Start Date End Date Nathanael Rojas DO [address] [place] [address] PCP - General Family Practice 06/22/21 Home Care Liaison Relationship Specialty Start Date End Date Nathanael Rojas DO [address] [place] [address] PCP - General Family Practice 06/22/21 Home Care Liaison Relationship Specialty Start Date End Date No, Physician [facility] PCP - General 03/16/22 Team Status: [...] Provider Active Star t: July 11, 2024 Home Care Liaison Relationship Specialty Start Date End Date Nathanael Rojas DO [address] [place] [address] PCP - General Family Medicine 06/22/21 Team [...] August 22, 2024 End: August 22, 2024 Home Care Liaison Relationship Specialty Start Date End Date Nathanael Rojas DO [address] [place] [address] PCP - General Family Medicine 06/22/21 Home Care Liaison Relationship Specialty Start Date End Date Nathanael Rojas DO [address] [place] [address] PCP - General Family Medicine 06/22/21 Team [...] 10, 2024 End: July 11, 2024 Dr. aRcheal Neves MD Other Provider Active St art: [...] Provider Active Start: July 11, 2024 Dr. lAexandre Yip MD Other Provider Active Star t: [...] October 18, 2024 End: October 18, 2024 Home Care Liaison Relationship Specialty Start Date End Date Nathanael Rojas DO [address] [facility] [place] [address] PCP - General Family Medicine 06/22/21 Team Status: Inactive Member Role/Relationship Status Dates Dr. Nathnaael Rojas DO Primary Care Provider Active Start: [...] section and content) DATE CREATED AUTHOR 03/16/2022 [facility] DATE CREATED AUTHOR AUTHOR'S ORGANIZ ATION 12/04/2022 [facility] ([place]) DATE CREATED AUTHOR AUTHOR'S ORGANIZ ATION 09/15/2024 [facility] DATE CREATED AUTHOR AUTHOR'S ORGANIZ ATION 02/09/2025 [facility] FOR RECORDS PERTAINING TO PATIENTS WHO [...] BE BASED ON THE PRIMARY CLINICAL RECORDS. [facility] [employer] provides no warranty or guarantee of the accuracy or completeness of information in this document.
--- NOTE | 2025-04-02 13:27 | MRI_ITS ---
PROCEDURE: SPINE LUMBAR (ROUTINE) 04/02/2025 REASON FOR EXAM: PAIN TECHNIQUE: Procedure Code: MRISPL Modality: MR Procedure: SPINE LUMBAR (ROUTINE) COMPARISON: Lumbar spine x-ray 03/18/2025. FINDINGS: Vertebrae: Present in height and signal. Alignment: Anatomical. Conus Medullaris: Unremarkable. L1-2: Disc desiccation. No significant foraminal or canal stenosis. L2-3: Disc bulge. Facet joint arthropathy. Mild inferior bilateral foramina stenosis. No significant canal stenosis. L3-4: Disc desiccation. Facet joint arthropathy. Ligamentum flavum hypertrophy. Moderate bilateral foramina stenosis. No significant canal stenosis. No significant foramina stenosis. L4-5: Uncovered disc bulge. Facet joint arthropathy. Ligamentum flavum hypertrophy. Severe bilateral foramina stenosis and mass-effect upon the exiting bilateral L4 nerves. Severe canal stenosis. L5-S1: Facet joints arthropathy. No significant foraminal or canal stenosis. Sacrum: Unremarkable. 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 Reading Location: [id number]
== END | disposition home or self-care (01) ==
PROVIDERS: PCP Family Medicine; Referring Provider Orthopaedic Surgery Orthopaedic Surgery of the Spine; Visit Provider Orthopaedic Surgery Orthopaedic Surgery of the Spine
DX: R29.818 Other symptoms and signs involving the nervous system (principal); M43.16 Spondylolisthesis, lumbar region
CPT/HCPCS: 72148